=== PATIENT | female | born 1970 | race African-American/Black ===

== ENCOUNTER 2016-08-10 20:12 | Observation (INO) | payer MEDICARE, OTHER ==
--- NOTE | 2016-08-10 21:38 | ED ---
Abdominal Pain HPI - General Chief Complaint: Abdominal Pain Stated Complaint: Abd Pain Time Seen by Provider: 08/10/16 21:28 Source: patient Mode of arrival: wheelchair Limitations: no limitations - History of Present Illness Initial Comments: This patient is a 46-year-old woman who presents to be evaluated which she is describing as a "charley horse" type of pain. Patient states that she had seen her physician, Dr. Vásquez yesterday for routine appointment. She states that when she got into the taxi go home she started having a feeling like a charley horse that was in her right leg. She states that it began affecting both legs and then it started to be in her torso as well indicating the abdomen and back and also following up to her neck. The symptoms have been coming and going intermittently since then. When asked if she can localize the worst part she does indicate the right upper quadrant of her abdomen. The patient states that the pain varies from nonexistent to moderate. The pain is currently not there. She does state that it seems to limit her ability to eat anything because it makes the pain worse. She has not had nausea or vomiting. No change in urination or bowel movements. MD Complaint: abdominal pain Onset/Timin -: days(s) - Related Data Home Medications Medication Instructions Recorded Confirmed Cyclobenzaprine [Flexeril] 10 mg PO TID 08/28/14 08/10/16 Ferrous Sulfate [Iron (65 MG 325 mg PO DAILY 08/28/14 08/10/16 Elemental)] Gabapentin [Neurontin] 300 mg PO BID 08/28/14 08/10/16 Potassium Chloride [Klor-Con 20] 20 meq PO BID 04/22/16 08/10/16 Levothyroxine Sodium [Synthroid] 25 mcg PO DAILY 05/09/16 08/10/16 Spironolactone 50 mg PO BID 08/10/16 08/10/16 Previous Rx's Medication Instructions Recorded Furosemide [Lasix] 40 mg PO BID #60 tablet 04/29/16 ALPRAZolam [Xanax] 0.5 mg PO BID PRN #14 tablet 05/09/16 Dicyclomine [Bentyl] 10 mg PO QID #30 cap 08/14/16 Ibuprofen [Motrin] 600 mg PO QID PRN #30 tab 08/14/16 metFORMIN HCL [Glucophage] 500 mg PO BID-W/MEALS #30 tab 08/14/16 traMADol HCl [Ultram] 50 mg PO BID #10 tab 08/14/16 Allergies Allergy/AdvReac Type Severity Reaction Status Date / Time oxycodone HCl [From Percocet] Allergy Rash/Hives Verified 08/10/16 21:52 procaine HCl [From Novocain] Allergy facial Verified 08/10/16 21:52 swelling Review of Systems ROS Statement: Those systems with pertinent positive or pertinent negative responses have been documented in the HPI. ROS Other: All systems not noted in ROS Statement are negative. Constitutional: Denies: fever, chills Respiratory: Denies: cough, dyspnea Cardiovascular: Denies: chest pain, palpitations, edema, syncope Gastrointestinal: Reports: as per HPI, abdominal pain. Denies: nausea, vomiting , diarrhea, constipation, melena, hematochezia Genitourinary: Denies: dysuria, hematuria Musculoskeletal: Reports: myalgia. Denies: back pain Skin: Denies: rash Neurological: Denies: headache, weakness, numbness Past Medical History Past Medical History: Neurologic Disorder, Osteoarthritis (OA) Additional Past Medical History / Comment(s): chronic right leg wounds Last Myocardial Infarction Date:: 1989 History of Any Multi-Drug Resistant Organisms: None Reported Past Surgical History: Section, Tubal Ligation Additional Past Surgical History / Comment(s): colonoscopy Past Anesthesia/Blood Transfusion Reactions: No Reported Reaction Additional Past Anesthesia/Blood Transfusion Reaction / Comment(s): Pt has received blood in the past without reaction, once r/t childbirth and once due to anemia. Past Psychological History: Anxiety Additional Psychological History / Comment(s): Pt states she lives alone. She uses no assistive device. She can drive but does not own a car so she uses a [employer] or her insurance company for rides. She states her depression is stable at this time and has no suicidal thoughts or plans. She has had several suicide attempts in the past. Smoking Status: Never smoker Past Alcohol Use History: Rare Past Drug Use History: None Reported - Past Family History Father History Unknown: Yes Additional Family Medical History / Comment(s): Pt was adopted and does not know parents/family medical hx. General Exam Limitations: no limitations General appearance: alert, in no apparent distress, obese Head exam: Present: atraumatic, normocephalic Eye exam: Present: normal appearance. Absent: scleral icterus, conjunctival injection ENT exam: Present: normal oropharynx Neck exam: Present: normal inspection. Absent: full ROM, lymphadenopathy Respiratory exam: Present: normal lung sounds bilaterally. Absent: respiratory distress, wheezes, rales, rhonchi, stridor Cardiovascular Exam: Present: regular rate, normal rhythm, normal heart sounds. Absent: systolic murmur, diastolic murmur, rubs, gallop GI/Abdominal exam: Present: soft, tenderness (Mild right upper quadrant tenderness), normal bowel sounds, other (Exam limited by morbid obesity). Absent: guarding, rebound, rigid, mass Extremities exam: Present: normal inspection, normal capillary refill. Absent: pedal edema, calf tenderness Back exam: Absent: CVA tenderness (R), CVA tenderness (L) Neurological exam: Present: alert Skin exam: Present: warm, dry, intact, normal color. Absent: rash Course Vital Signs 08/10/16 08/10/16 08/11/16 20:27 22:43 00:27 Temperature 99.2 F 97.9 F 98.0 F Pulse Rate 129 H 118 H 115 H Respiratory 20 18 18 Rate Blood Pressure 151/94 137/76 129/68 O2 Sat by Pulse 98 99 99 Oximetry 08/11/16 02:10 Temperature 97.9 F Pulse Rate 117 H Respiratory 18 Rate Blood Pressure 123/66 O2 Sat by Pulse 99 Oximetry Medical Decision Making - Medical Decision Making Patient's 46-year-old woman who is having continued abdominal pain. The workup thus far does not reveal etiology the patient's pain. She is not having adequate relief despite trial of different medications. Case discussed with Dr. Fong, who is covering for Dr. Vásquez and will admit the patient overnight with a surgical consult to Dr. Lundberg who is on-call. - Lab Data Result diagrams: 08/14/16 07:00 08/14/16 07:00 Lab Results 08/10/16 08/10/16 08/10/16 Range/Units 21:45 21:45 22:00 WBC (3.8-10.6) k/uL RBC (3.80-5.40) m/uL Hgb (11.4-16.0) gm/dL Hct (34.0-46.0) % MCV (80.0-100.0) fL MCH (25.0-35.0) pg MCHC (31.0-37.0) g/dL RDW (11.5-15.5) % Plt Count (150-450) k/uL Neutrophils % % Lymphocytes % % Monocytes % % Eosinophils % % Basophils % % Neutrophils # (1.3-7.7) k/uL Lymphocytes # (1.0-4.8) k/uL Monocytes # (0-1.0) k/uL Eosinophils # (0-0.7) k/uL Basophils # (0-0.2) k/uL Anisocytosis Sodium 137 (137-145) mmol/L Potassium 4.4 (3.5-5.1) mmol/L Chloride 104 (98-107) mmol/L Carbon Dioxide 21 L (22-30) mmol/L Anion Gap 12 mmol/L BUN 18 H (7-17) mg/dL Creatinine 1.07 H (0.52-1.04) mg/dL Est GFR (MDRD) Af Amer >60 (>60 ml/min/1.73 sqM) Est GFR (MDRD) Non-Af 56 (>60 ml/min/1.73 sqM) Glucose 117 H (74-99) mg/dL Plasma Lactic Acid Chester (0.7-2.0) mmol/L Calcium 9.2 (8.4-10.2) mg/dL Magnesium 2.0 (1.6-2.3) mg/dL Total Bilirubin 0.7 (0.2-1.3) mg/dL AST 61 H (14-36) U/L ALT 15 (9-52) U/L Alkaline Phosphatase 85 (38-126) U/L Total Protein 8.6 H (6.3-8.2) g/dL Albumin 4.2 (3.5-5.0) g/dL Amylase 107 (30-110) U/L Lipase 71 (23-300) U/L Urine Color Yellow Urine Appearance Clear (Clear) Urine pH 5.0 (5.0-8.0) Ur Specific Anza 1.013 (1.001-1.035) Urine Protein Negative (Negative) Urine Glucose (UA) Negative (Negative) Urine Ketones Negative (Negative) Urine Blood Negative (Negative) Urine Nitrate Negative (Negative) Urine Bilirubin Negative (Negative) Urine Urobilinogen <2.0 (<2.0) mg/dL Ur Leukocyte Esterase Negative (Negative) Urine HCG, Qual Not Detected (Not Detectd) 08/10/16 08/10/16 Range/Units 22:00 22:00 WBC 12.8 H (3.8-10.6) k/uL RBC 4.00 (3.80-5.40) m/uL Hgb 10.9 L (11.4-16.0) gm/dL Hct 33.3 L (34.0-46.0) % MCV 83.2 (80.0-100.0) fL MCH 27.4 (25.0-35.0) pg MCHC 32.9 (31.0-37.0) g/dL RDW 16.4 H (11.5-15.5) % Plt Count 398 (150-450) k/uL Neutrophils % 63 % Lymphocytes % 26 % Monocytes % 5 % Eosinophils % 4 % Basophils % 1 % Neutrophils # 8.0 H (1.3-7.7) k/uL Lymphocytes # 3.4 (1.0-4.8) k/uL Monocytes # 0.6 (0-1.0) k/uL Eosinophils # 0.5 (0-0.7) k/uL Basophils # 0.1 (0-0.2) k/uL Anisocytosis Slight Sodium (137-145) mmol/L Potassium (3.5-5.1) mmol/L Chloride (98-107) mmol/L Carbon Dioxide (22-30) mmol/L Anion Gap mmol/L BUN (7-17) mg/dL Creatinine (0.52-1.04) mg/dL Est GFR (MDRD) Af Amer (>60 ml/min/1.73 sqM) Est GFR (MDRD) Non-Af (>60 ml/min/1.73 sqM) Glucose (74-99) mg/dL Plasma Lactic Acid Chester 1.1 (0.7-2.0) mmol/L Calcium (8.4-10.2) mg/dL Magnesium (1.6-2.3) mg/dL Total Bilirubin (0.2-1.3) mg/dL AST (14-36) U/L ALT (9-52) U/L Alkaline Phosphatase (38-126) U/L Total Protein (6.3-8.2) g/dL Albumin (3.5-5.0) g/dL Amylase (30-110) U/L Lipase (23-300) U/L Urine Color Urine Appearance (Clear) Urine pH (5.0-8.0) Ur Specific Anza (1.001-1.035) Urine Protein (Negative) Urine Glucose (UA) (Negative) Urine Ketones (Negative) Urine Blood (Negative) Urine Nitrate (Negative) Urine Bilirubin (Negative) Urine Urobilinogen (<2.0) mg/dL Ur Leukocyte Esterase (Negative) Urine HCG, Qual (Not Detectd) Disposition Clinical Impression: Abdominal pain Disposition: ADMITTED IP TO THIS HOSP Condition: Fair
[2016-08-10] MEDS ORDERED: KETOROLAC 30 MG/ML 1 ML VIAL IVP STA (21:51)
[2016-08-10 21:57] LABS: Appearance,Urine Clear (Clear); Bilirubin,Urine Negative (Negative); Glucose,Urine (UA) Negative (Negative); Ketones,Urine Negative (Negative); Leukocyte Esterase,Urine Negative (Negative); Nitrite,Urine Negative (Negative); Protein,Urine Negative (Negative); Specific Gravity,Urine 1.013 (1.001-1.035); UA Billing (MACRO vs. MICRO) CHEM; Urobilinogen,Urine <2.0 mg/dL (<2.0)
[2016-08-10 22:23] LABS: Anisocytosis Slight; Basophils # (A) 0.1 k/uL (0-0.2); Basophils % (A) 1 %; CH 26.9; CHCM 32.5; Eosinophils # (A) 0.5 k/uL (0-0.7); Eosinophils % (A) 4 %; HCT 33.3 % (34.0-46.0); HDW 2.64; HGB 10.9 gm/dL (11.4-16.0); Luc # (Auto) 0.21; Luc % (Auto) 2; Lymphocytes # (A) 3.4 k/uL (1.0-4.8); Lymphocytes % (A) 26 %; MCH 27.4 pg (25.0-35.0); MCHC 32.9 g/dL (31.0-37.0); MCV 83.2 fL (80.0-100.0); Mean Platelet Volume 7.2; Monocytes # (A) 0.6 k/uL (0-1.0); Monocytes % (A) 5 %; Neutrophils % (A) 63 %; RDW 16.4 % (11.5-15.5); WBC 12.8 k/uL (3.8-10.6); WBC (Perox) 12.98
--- NOTE | 2016-08-10 22:40 | CT ---
EXAMINATION TYPE: CT abdomen pelvis wo con DATE OF EXAM: 08/10/2016 10:33 PM COMPARISON: 10/11/2013 HISTORY: PT states of abdominal pain. CT DLP: 4647.8 mGycm Automated exposure control for dose reduction was used. TECHNIQUE: Helical acquisition of images was performed from the lung bases through the pelvis. FINDINGS: Lung bases are clear. There is no pleural effusion. Exam is limited by patient size. The liver spleen pancreas gallbladder appear normal. Bile ducts are not dilated. There is no adrenal mass. Kidneys have normal size and contour. There is no hydronephrosis. Ureters are not dilated. Ther e is no retroperitoneal adenopathy. There is an umbilical hernia that contains omental fat. I see no intestinal wall thickening. There are no dilated loops. There are diffuse colonic diverticul a. There is no sign of diverticulitis. Appendix appears normal. The bladder distends smoothly. There is no sign of a pelvic mass. I see no bony destructive process. IMPRESSION: THERE IS SOME MILD COLONIC DIVERTICULOSIS WITHOUT EVIDENCE OF DIVERTICULITIS. NO SIGN OF ACUTE ABDOME N AND PELVIS. NO ADVERSE CHANGE COMPARED TO LAST EXAM. SMALL UMBILICAL HERNIA.
[2016-08-10 22:53] LABS: ALT 15 U/L (9-52); AST 61 U/L (14-36); Alkaline Phosphatase 85 U/L (38-126); Amylase 107 U/L (30-110); Anion Gap 12 mmol/L; Blood Urea Nitrogen 18 mg/dL (7-17); Calcium 9.2 mg/dL (8.4-10.2); Carbon Dioxide 21 mmol/L (22-30); Chloride 104 mmol/L (98-107); Glucose 117 mg/dL (74-99); Non-African American GFR(MDRD) 56 (>60 ml/min/1.73 sqM); Sodium 137 mmol/L (137-145); Total Bilirubin 0.7 mg/dL (0.2-1.3); Total Protein 8.6 g/dL (6.3-8.2)
[2016-08-10 22:56] LABS: Potassium 4.4 mmol/L (3.5-5.1)
[2016-08-10] MEDS ORDERED: ONDANSETRON 4 MG/2 ML VIAL IVP STA (23:01)
[2016-08-10] MEDS ORDERED: HYDROcodone/APAP 7.5-325MG 1 EACH TAB PO ONE (23:23)
[2016-08-10] MEDS ORDERED: MAG HYDROX/AL HYDROX/SIMETH 30 ML, HYOSCYAMINE ELIXIR 10 ML, CIMETIDINE HCL 300 MG, LID... PO STA ×4 (23:52)
[2016-08-11] MEDS ORDERED: DIAZEPAM 5 MG/ML 2 ML SYRINGE IVP STA (01:26)
[2016-08-11] MEDS ORDERED: NALOXONE 0.4 MG/ML 1 ML VIAL IV PRN (01:55)
[2016-08-11] MEDS ORDERED: ACETAMINOPHEN TAB 325 MG TAB PO PRN (01:55)
[2016-08-11] MEDS ORDERED: ONDANSETRON 4 MG/2 ML VIAL IVP PRN (01:55)
[2016-08-11] MEDS ORDERED: ALPRAZolam 0.5 MG TAB PO PRN (01:58)
[2016-08-11 02:43] VITALS: BMI 73.2
[2016-08-11] MEDS: MORPHINE SULFATE 4 MG/ML SYRINGE IV PRN ×5 (03:06→23:36)
[2016-08-11] MEDS: SODIUM CHLORIDE 0.9% 1,000 ML IV SCH (03:33)
[2016-08-11] MEDS: LEVOTHYROXINE 25 MCG TAB PO SCH (05:12)
[2016-08-11] MEDS: FUROSEMIDE 40 MG TAB PO SCH ×2 (07:50→20:06)
[2016-08-11] MEDS: CYCLOBENZAPRINE 10 MG TAB PO SCH ×3 (07:50→20:06)
[2016-08-11] MEDS: GABAPENTIN 300 MG CAP PO SCH ×2 (07:51→20:06)
[2016-08-11] MEDS: SPIRONOLACTONE 25 MG TAB PO SCH ×2 (07:51→20:05)
[2016-08-11] MEDS: FERROUS SULFATE 325 MG TAB PO SCH (07:52)
[2016-08-11] MEDS: FAMOTIDINE 20 MG TAB PO SCH ×2 (07:52→20:05)
[2016-08-11] MEDS ORDERED: ETODOLAC 300 MG CAPSULE PO SCH (09:00)
[2016-08-11] MEDS ORDERED: POTASSIUM CHLORIDE ER 20 MEQ TAB.ER PO SCH (09:00)
--- NOTE | 2016-08-11 09:32 | XR ---
EXAMINATION TYPE: XR lumbosacral spine min 4V DATE OF EXAM: 08/11/2016 9:19 AM CLINICAL HISTORY: Rule out compression fracture. Several recent falls with pain. TECHNIQUE: Frontal, lateral, and oblique images of the lumbar spine are obtained. COMPARISON: CT abdomen and pelvis from yesterday. FINDINGS: Exam is slightly suboptimal secondary to patient's large body habitus. There are 5 lumbar type vertebral bodies identified. There is hypoplastic right T12 rib redemonstrated. The lumbar spin e shows satisfactory alignment without evidence of acute fracture or dislocation. Vertebral body heig hts and disk space heights are within normal limits. Fairly moderate multilevel anterior and lateral spurring is redemonstrated. Multilevel facet arthropathy is seen most prominent in lower lumbar leve ls. The oblique images appear within normal limits. The overlying soft tissue appears unremarkable. IMPRESSION: No acute fracture or dislocation is seen in the lumbar spine. Moderate multilevel spurri ng and facet arthropathy is redemonstrated unchanged from one day earlier.
--- NOTE | 2016-08-11 09:32 | XR ---
EXAMINATION TYPE: XR thoracic spine complete DATE OF EXAM ORDERED: 08/11/2016 9:19 AM HISTORY: r/o compression fracture. COMPARISON: None. FINDINGS: The study is limited by the patient's tremendous size. The upper thoracic spine is not wel l seen on the lateral projection. The pedicles are largely obscured on the frontal projection. Visualized portions of the spine show normal alignment. No fractures are seen. There is mild hypertro phic spondylosis. Paraspinal soft tissues are somewhat prominent on the left. This may be due to unfo lding of the thoracic aorta. The heart is enlarged. IMPRESSION: VERY LIMITED STUDY DEMONSTRATING NO DEFINITE ACUTE ABNORMALITIES.
[2016-08-11 10:14] LABS: Iron 84 ug/dL (37-170)
[2016-08-11 10:23] LABS: % Iron Saturation 26.4 % (20-50); Total Iron Binding Capacity 318 ug/dL (265-497)
--- NOTE | 2016-08-11 11:00 | US ---
EXAMINATION TYPE: US venous doppler duplex LE LT DATE OF EXAM: 08/11/2016 10:51 AM COMPARISON: Previous study dated 04/22/2016. CLINICAL HISTORY: r/o dvt. SIDE PERFORMED: Left VESSELS IMAGED: External Iliac Vein (EIV)-not seen, see below Common Femoral Vein Deep Femoral Vein Greater Saphenous Vein * Femoral Vein-unable to view for compression, see below Popliteal Vein Small Saphenous Vein * Proximal Calf Veins (* superficial vessels) TECHNOLOGIST IMPRESSION: Patients morbid obesity (5'5' 440lbs) limited scan somewhat. Left Leg: Appears nnegative for DVT, in this somewhat limited scan No popliteal fossa lesion was identified. IMPRESSION: LIMITED EXAMINATION DEMONSTRATING NO ACUTE DVT AT THIS TIME.
[2016-08-11 11:10] LABS: Hemoglobin A1C 6.4 % (4.2-6.1)
--- NOTE | 2016-08-11 11:15 | HP ---
DATE OF ADMISSION: DATE OF SERVICE: 08/11/2016 A 46-year-old female, single. She has FULL CODE status. She is 5 feet 5 inches. Weight is 199.58 kg and her BMI is 73.2 kg and BSA 2.77 sq m. She is allergic to OXYCODONE and others. She was admitted through emergency room with the abdominal pain. CHIEF COMPLAINT: She had complaining about abdominal pain, started on last Monday after she came out of visiting her PCP, Dr. Pablito Vásquez, and she is going to go inside the car, she felt subsequently pain in the abdomen and goes to her legs and goes to her shoulder and goes to her back and is traveling with no association. HISTORY OF PRESENT ILLNESS: A 46-year-old female morbidly obese with BMI 73.2. She had experienced sudden pain after she tried to get inside the car and that pain extended to the abdomen was on the right side and then went to the left side and subsequently went to the legs and currently it's more of her left leg and left leg actually tender across the veins, the femoral vein and the thigh with the underlying high morbid obesity. She had no other symptoms, no nausea, no vomiting, no diarrhea and, but she has pain with the gait as well and unsteady gait as well. HER PAST MEDICAL HISTORY: She had history of right lower leg extremity cellulitis, bilateral lower extremity edema, nonhealing ulcer of the lower leg. She had also history of using muscle relaxant, history of anemia, the etiology is unknown. She had regular period, but she finished her period. She is also hypothyroidism. FAMILY HISTORY: She is 6 with 4 daughters. She is single and she never . She is currently on observation status as she admitted through the emergency room with the consultation for the surgeon compression molding machine tender Dr. Lundberg. On reviewing of the system: Neuropsychiatry was negative. Cardiovascular, no chest pain and no pressure pain, but she had generalized pain, mostly in the left side with the left lower leg. She is vague in her complaint. She had past history of musculoskeletal pain. She is also on etodolac 3 times a day and that also can be associated with significant stomach problem. She stated that she had colonoscopy in the past, 3 years ago, but she never had upper endoscopy. She has denied any hematemesis or melena or hematochezia. No history of pulmonary cough or expectoration or wheezing. She never smoked. On the abdomen, she had a morbidly obese. CAT scan was done in the ER was negative and she did not really have nausea or vomiting, but she had pain scattered in the 4 quadrants, mostly localized on the left side. The extremity a morbidly obese extremities with tenderness on the course of the femoral vein. No pitting edema so apparently she had maybe lymphedema more than pitting edema. The perfusion bilaterally is present. Neurologically, she has no problem with conscious, alert, oriented. She had the deep tendon reflexes diminished because of the morbid obesity and the walking, she has gait disturbance with the pain in the lower sacral area. The 14-point otherwise as I mentioned above was reviewed with no other symptoms. PHYSICAL EXAMINATION: VITAL SIGNS ON ADMISSION: Patient's temperature was 98 and pulse rate was 115 with tachycardia and she has also subsequent check was still tachycardiac and her respiratory rate was 18 to 16, blood pressure was 129/68 to 123/66 and has been stable. Her oxygen occasionally dropped to 93 and probably with the morbid obesity and could be secondary to obstructive sleep apnea as well with the marked obesity. HEENT: The head was normocephalic and atraumatic. Pupils were equal and reactive. Conjunctivae pink. Sclerae nonicteric. Her ears, normal hearing. Oropharynx, she had only a few teeth on the lower jaw and she had no teeth on the upper jaw. She has stated that she is planning for having dentures. The neck was supple. No JVD. No thyromegaly. No lymphadenopathy. Trachea midline. The chest was clear, markedly obese. No wheezes, no rhonchi. HEART: PMI in the fifth intercostal space. Normal S1, S2. No gallop and no appreciated audible murmur. The abdomen is morbidly obese and she had; however, tenderness on the left side of the upper quadrant in spite that that the review of the CAT scan was essentially negative and negative for lipase and amylase, also laboratory pritchard. The extremities, large thighs and large legs and there is tenderness on the left thigh. There is nonpitting edema and probably is felt could be from lymph pritchard. Neurologically was stable and no lateralizing signs. She moving 4 extremities. Conscious, alert, oriented x3. On examination, the spine there is no significant tenderness until you reached in the lower lumbar and the sacral area severe tenderness. Also, we reviewed her laboratories and the laboratory was indicating her white count is 12.5, which is leukocytosis and her hemoglobin 10.9 anemia with hematocrit 33.3, however, the MCV is 83.2. She has elevated neutrophil. The chemistry profile indicating the carbon dioxide is 21, which possibility indication that may be she is hyperventilating, could be associated with obstructive sleep apnea as well. Her kidney function, the BUN is 18, creatinine 1.07 and her estimated glomerular filtration rate is normal for and that is than 60. Her AST; however, is elevated 61 and was wonder if she had any evidence of hepatitis C and we will be obtaining acute hepatitis panel A, B and C. She had also elevated total protein 8.6. Patient could be associated with multiple myeloma and we will be obtaining serum protein electrophoresis as well as immunofixation of the urine and protein as well as x-ray of the thoracic and the lumbar as well as sacral area as well. Her amylase and lipase negative. Her urine analysis is negative. We will be waiting Dr. Lundberg also of the surgeon to evaluate as well. ASSESSMENT: 1. With the assessment in general, vague nonspecific pain; however, localization with the pain during the exam she had left leg pain across the vein and we will do a venous duplex study to rule out deep venous thrombosis. 2. Hyperproteinemia, we will be ruling out multiple myeloma. She had normal lactic acid and she had mild carbon dioxide diminished with the with the underlying possibility of obstructive sleep apnea. 3. She had morbid obesity with the BMI 73.2 as well. 4. She had hypothyroidism as well and she is currently on treatment and we will recheck as well in the future. She has been on Lasix 40 mg twice a day and of course she has no evidence of edema at this time and she has been gabapentin appeared to be that she had similar problem in the past. However, she stated this is acute after Monday as coming out from the visit to her PCP. We will await for the new laboratory tomorrow as well as the laboratory ordered and will do CMP tomorrow and CBC with differential. With the with the underlying, systemic inflammatory response syndrome is considered with the white count elevated and considerable pain nonspecific. [facility]
[2016-08-11 11:46] LABS: Hepatitis B Core IgM Index 0.02
[2016-08-11 11:58] LABS: Hepatitis C Virus IgG Index 0.06
[2016-08-11 12:01] LABS: Hepatitis C Virus IgG Ab Negative (Negative)
[2016-08-11] MEDS: HEPARIN SODIUM,PORCINE 5,000 UNIT/ML 1 ML VIAL SQ SCH ×2 (16:44→23:23)
--- NOTE | 2016-08-11 18:12 | P.GSCN ---
History of Present Illness Consult date: 08/11/16 Reason for Consult: Abdominal pain History of present illness: The patient is a 46 yo female who presented with abdominal pain. She had a doctor's appointment yesterday and when she was leaving and getting into a cab she will had some crampy abdominal pain on the right side. She got out of the cab and then went into the house. The pain was persisting. She laid down and had a nap and was awakened with severe pain on the right side. The pain then progressed with cramps which would be like charley horses in her feet, calves and thighs, abdomen, all the way up to her neck. Those pains are improved but she persists in having the pain in the right upper quadrant. It almost feels like there is a hard lump there. She is trying to massage it to get the pain to go away. She's never had anything like this in the past. She has no associated nausea or vomiting. She is hungry. Denies fevers or chills, denies dysuria. No recent cough or upper respiratory infection. No one at home is been ill. No diarrhea or constipation. Review of Systems All systems: negative Past Medical History Past Medical History: Neurologic Disorder, Osteoarthritis (OA) Additional Past Medical History / Comment(s): chronic right leg wounds Last Myocardial Infarction Date:: 1989 History of Any Multi-Drug Resistant Organisms: None Reported Past Surgical History: Section, Tubal Ligation Additional Past Surgical History / Comment(s): colonoscopy Past Anesthesia/Blood Transfusion Reactions: No Reported Reaction Additional Past Anesthesia/Blood Transfusion Reaction / Comm: Pt has received blood in the past without reaction, once r/t childbirth and once due to anemia. Past Psychological History: Anxiety Additional Psychological History / Comment(s): Pt states she lives alone. She uses no assistive device. She can drive but does not own a car so she uses a cab or her insurance company for rides. She states her depression is stable at this time and has no suicidal thoughts or plans. She has had several suicide attempts in the past. Smoking Status: Never smoker Past Alcohol Use History: Rare Past Drug Use History: None Reported - Past Family History Father History Unknown: Yes Additional Family Medical History / Comment(s): Pt was adopted and does not know parents/family medical hx. Medications and Allergies Home Medications Medication Instructions Recorded Confirmed Type Cyclobenzaprine [Flexeril] 10 mg PO TID 08/28/14 08/10/16 History Diclofenac Sodium [Voltaren] 75 mg PO BID 08/28/14 08/10/16 History Ferrous Sulfate [Iron (65 MG 325 mg PO DAILY 08/28/14 08/10/16 History Elemental)] Gabapentin [Neurontin] 300 mg PO BID 08/28/14 08/10/16 History Potassium Chloride [Klor-Con 20] 20 meq PO BID 04/22/16 08/10/16 History Levothyroxine Sodium [Synthroid] 25 mcg PO DAILY 05/09/16 08/10/16 History HYDROcodone/APAP 10-325MG [[place] 1 tab PO Q8H PRN 08/10/16 08/10/16 History 10-325] Spironolactone 50 mg PO BID 08/10/16 08/10/16 History Allergies Allergy/AdvReac Type Severity Reaction Status Date / Time oxycodone HCl [From Percocet] Allergy Rash/Hives Verified 08/10/16 21:52 procaine HCl [From Novocain] Allergy facial Verified 08/10/16 21:52 swelling Surgical - Exam Osteopathic Statement: *. No significant issues noted on an osteopathic structural exam other than those noted in the History and Physical/Consult. Vital Signs Temp Pulse Resp BP Pulse Ox 99.2 F 129 H 20 151/94 98 08/10/16 20:27 08/10/16 20:27 08/10/16 20:27 08/10/16 20:27 08/10/16 20:27 - General well developed, well nourished, no distress - Eyes normal ocular movement - ENT no hearing loss, no congestion - Neck trachea midline, no venous distension - Respiratory normal respiratory effort, clear to auscultation - Cardiovascular Rhythm: regular - Abdomen She has point tenderness along the right inferior costal margin. This reproduces her pain. There is none noted on the left side. Abdomen: soft, non tender, bowel sounds, no rigid, no rebound, no distended - Neurologic normal coordination - Psychiatric oriented to time, oriented to person, oriented to place, speech is normal, memory intact Results - Labs 08/10/16 22:00 08/10/16 22:00 Abnormal Lab Results - Last 24 Hours (Table) 08/11/16 Range/Units 09:39 Hemoglobin A1c 6.4 H (4.2-6.1) % Diabetes panel 08/11/16 Range/Units 09:39 Hemoglobin A1c 6.4 H (4.2-6.1) % - Imaging CT scan - abdomen: report reviewed, image reviewed Assessment and Plan (1) Musculoskeletal pain Status: Acute (2) Costochondritis, acute Status: Acute (3) Abdominal pain Status: Acute Plan: This pain does not appear to be anything intra-abdominal. She is very tender along the ribs and has some spasm of the muscle at that site. Will order some warm packs and oral Valium for muscle spasm. Consider physical therapy. This does not explain her other cramps in her lower extremities. Currently nonsurgical.
[2016-08-12] MEDS: SODIUM CHLORIDE 0.9% 1,000 ML IV SCH ×2 (01:48→21:17)
[2016-08-12] MEDS: LEVOTHYROXINE 25 MCG TAB PO SCH (05:54)
[2016-08-12] MEDS: MORPHINE SULFATE 4 MG/ML SYRINGE IV PRN ×2 (05:55→10:39)
[2016-08-12] MEDS: HEPARIN SODIUM,PORCINE 5,000 UNIT/ML 1 ML VIAL SQ SCH ×3 (07:57→23:04)
[2016-08-12] MEDS: FUROSEMIDE 40 MG TAB PO SCH ×2 (07:57→21:16)
[2016-08-12] MEDS: FAMOTIDINE 20 MG TAB PO SCH ×2 (07:57→21:16)
[2016-08-12] MEDS: GABAPENTIN 300 MG CAP PO SCH ×2 (07:57→21:15)
[2016-08-12] MEDS: CYCLOBENZAPRINE 10 MG TAB PO SCH ×3 (07:58→21:16)
[2016-08-12] MEDS: SPIRONOLACTONE 25 MG TAB PO SCH ×2 (07:58→21:16)
[2016-08-12] MEDS: FERROUS SULFATE 325 MG TAB PO SCH (07:58)
[2016-08-12 08:02] LABS: Anisocytosis Slight; Basophils % (A) 0 %; CH 26.4; CHCM 31.2; Eosinophils # (A) 0.2 k/uL (0-0.7); Eosinophils % (A) 3 %; HCT 29.5 % (34.0-46.0); HDW 2.38; Hypochromasia Slight; Luc # (Auto) 0.17; Luc % (Auto) 2; Lymphocytes # (A) 2.5 k/uL (1.0-4.8); Lymphocytes % (A) 29 %; MCH 26.5 pg (25.0-35.0); MCHC 31.2 g/dL (31.0-37.0); Mean Platelet Volume 6.9; Monocytes # (A) 0.5 k/uL (0-1.0); Monocytes % (A) 5 %; Neutrophils # (A) 5.3 k/uL (1.3-7.7); Neutrophils % (A) 61 %; RBC 3.47 m/uL (3.80-5.40); RDW 16.2 % (11.5-15.5); WBC 8.7 k/uL (3.8-10.6); WBC (Perox) 8.53
[2016-08-12 08:03] LABS: HGB 9.2 gm/dL (11.4-16.0)
[2016-08-12 08:09] LABS: ALT 20 U/L (9-52); AST 27 U/L (14-36); Alkaline Phosphatase 60 U/L (38-126); Anion Gap 7 mmol/L; Blood Urea Nitrogen 18 mg/dL (7-17); Calcium 8.8 mg/dL (8.4-10.2); Carbon Dioxide 28 mmol/L (22-30); Chloride 103 mmol/L (98-107); Glucose 124 mg/dL (74-99); Non-African American GFR(MDRD) 58 (>60 ml/min/1.73 sqM); Potassium 5.2 mmol/L (3.5-5.1); Sodium 138 mmol/L (137-145); Total Bilirubin 0.6 mg/dL (0.2-1.3)
[2016-08-12 09:37] LABS: Erythrocyte Sedimentation Rate 46 mm/hr (0-20)
[2016-08-12] MEDS: DIAZEPAM 5 MG TAB PO PRN (14:05)
[2016-08-12] MEDS ORDERED: traMADol 50 MG TAB PO PRN (17:50)
--- NOTE | 2016-08-12 18:33 | P.PN ---
Subjective This is a dictation on the progress note, patient seen [id number] evaluated, PCP is Dr. Pablito Vásquez. Patient complained that she had blood in the stools and also blood through her vagina, and that causing her anemia. Review the laboratories today found that she had normal iron panel with normal MCV could be indicating bleeding per vagina or rectum with the hemoglobin drop from 10.9-9.2 could be also from hydration. She had white count was 12.8 now is 8.7 and her normal platelet count and potassium is elevated 5.2 could be due to 2 to the throwing itself with the morbid obesity her glucose was fluctuating with hyperglycemia mild but the hemoglobin A1c 6.4 with the possibility of with the diabetes mellitus with the risk factor of morbid obesity. And we will be checking her CBG before meals and at bedtime and cover with the scale. Patient on the DVT prophylaxis because of the morbid obesity as well as she is on bed. We'll order also ambulation as tolerated. Today her vital sign indicating temperature is 97.6 orally her oxygen saturation 95 and her blood pressure was ranging from 108/57-146/91 her heart rate is fluctuating with 92- 111 with the underlying possibility of obstructive sleep apnea. Patient has several testing including computed tomography scan abdomen and pelvis was negative she had the lumbar spine thoracic spine and that was degenerative arthritis with the possibility the pain is associated with musculoskeletal. We checked on her left leg tenderness and we did the adrenals Doppler study and was negative as well. She had also initially elevated calcium with the IV fluid in the ER and calcium normalized as well probable mild dehydration associated. Her abdominal pain has been stable at this time and will discontinue the morphine with the understanding of musculoskeletal pain was indicated by Dr. Lundberg the surgeon. This of this exam patient conscious alert oriented 3 sitting on the bed HEENT negative he will treat swallow. Neck was supple no JVD or thyromegaly she has been treated from hypothyroidism and we'll recheck her thyroid function. Chest was clear and the heart was regular sinus and abdomen was soft orbitally obese and positive bowel sounds no evidence of localized tenderness. Extremities large no pitting edema. Neurologically moving 4 extremities and able to ambulate. Assessment: Underlying anemia of chronic disease, #2 patient stated that she had was in the stools as well as vaginal blood and with planning to consult WIRE DRAWING DIE MAKER as well as obtaining stool for Hemoccult, however the iron study was satisfactory that could be from chronic disease with elevated sed rate. His morbid obesity with a BMI 73.2 and underlying obstructive sleep apnea highly suspected. Plan Physical therapy #2 stool for Hemoccult #3 consultation with WIRE DRAWING DIE MAKER. For vaginal bleeding. Objective - Vital Signs Vital signs: Vital Signs Temp 97.6 F 08/12/16 15:36 Pulse 111 H 08/12/16 15:51 Resp 17 08/12/16 15:51 BP 108/57 08/12/16 15:36 Pulse Ox 95 08/12/16 15:36 Intake & Output 08/11/16 08/12/16 08/12/16 18:59 06:59 18:59 Intake Total 1510 118 Output Total 800 Balance 710 118 Intake: IV 160 Sodium Chloride 0.9% 1, 160 000 ml @ 20 mls/hr IV . Q24H [facility] Rx#:[id number] Oral 1350 118 Output: Urine 800 Other: Voiding Method Toilet Toilet # Voids 1 3 - Labs CBC & Chem 7: 08/12/16 07:10 08/12/16 07:05 Labs: Abnormal Lab Results - Last 24 Hours (Table) 08/11/16 08/12/16 08/12/16 Range/Units 09:39 07:05 07:10 RBC 3.47 L (3.80-5.40) m/uL Hgb 9.2 L D (11.4-16.0) gm/dL Hct 29.5 L (34.0-46.0) % RDW 16.2 H (11.5-15.5) % ESR 46 H (0-20) mm/hr Potassium 5.2 H (3.5-5.1) mmol/L BUN 18 H (7-17) mg/dL Glucose 124 H (74-99) mg/dL Hepatitis A Ab Total Reactive H (Non-Reactive)
[2016-08-12 20:25] LABS: Glucose,Whole Blood 91 mg/dL (75-99)
[2016-08-12] MEDS: INSULIN LISPRO (humaLOG) 300 UNIT/3 ML VIAL SQ SCH (21:17)
[2016-08-12] MEDS: HYDROcodone/APAP 10-325MG 1 EACH TAB PO PRN (23:08)
[2016-08-13] MEDS: DIAZEPAM 5 MG TAB PO PRN ×2 (00:56→23:09)
[2016-08-13] MEDS: LEVOTHYROXINE 25 MCG TAB PO SCH (06:08)
[2016-08-13 07:15] LABS: Anisocytosis Slight; Basophils % (A) 0 %; CH 26.6; Eosinophils # (A) 0.2 k/uL (0-0.7); Eosinophils % (A) 2 %; HCT 29.7 % (34.0-46.0); HDW 2.41; HGB 9.2 gm/dL (11.4-16.0); Luc # (Auto) 0.23; Luc % (Auto) 3; Lymphocytes # (A) 2.7 k/uL (1.0-4.8); Lymphocytes % (A) 33 %; MCHC 31.1 g/dL (31.0-37.0); MCV 83.6 fL (80.0-100.0); Monocytes # (A) 0.4 k/uL (0-1.0); Monocytes % (A) 5 %; Neutrophils # (A) 4.6 k/uL (1.3-7.7); Neutrophils % (A) 56 %; RBC 3.55 m/uL (3.80-5.40); RDW 16.3 % (11.5-15.5); WBC 8.1 k/uL (3.8-10.6)
[2016-08-13 07:24] LABS: Anion Gap 8 mmol/L; Blood Urea Nitrogen 18 mg/dL (7-17); Calcium 9.3 mg/dL (8.4-10.2); Carbon Dioxide 28 mmol/L (22-30); Chloride 103 mmol/L (98-107); Glucose 98 mg/dL (74-99); Non-African American GFR(MDRD) >60 (>60 ml/min/1.73 sqM); Potassium 4.6 mmol/L (3.5-5.1); Sodium 139 mmol/L (137-145)
[2016-08-13 07:31] LABS: Glucose,Whole Blood 102 mg/dL (75-99)
--- NOTE | 2016-08-13 08:39 | P.OBCN ---
History of Present Illness Consult date: 08/13/16 Requesting physician: Rubén Fong Reason for consult: other (Vaginal discharge and spotting) History of present illness: This patient is a 46-year-old 4 para [address] Fong for evaluation of right upper quadrant and abdominal pain. Patient was admitted approximately 2 days ago after developing this pain and evaluation has included a negative CAT scan and evaluation by general surgery. Patient apparently also complains of having some vaginal discharge with some light spotting. Hence the reason for this consult. Patient's regular HOUSE RN is Dr. Hadley, and she most recently saw him on February 15 and had a complete examination including a normal Pap smear. Patient states that she has regular menstrual cycles and most recently had one about a week or so ago, but during this hospitalization has noticed some vaginal discharge and which she feels is dark red spotting. She denies any history of menstrual problems in the past. Past obstetrical history is also significant for a tubal ligation. Dr. Hadley did treat her for bacterial infection when he saw her in January. Diagnostic evaluation here has included a normal CAT scan of the pelvis. General surgery has seen the patient and does not feel she has a surgical abdomen. Review of Systems Genitourinary: Reports as per HPI, Reports vaginal discharge Menstruation: Reports as per HPI, Reports period normal Past Medical History Past Medical History: Neurologic Disorder, Osteoarthritis (OA) Additional Past Medical History / Comment(s): chronic right leg wounds Last Myocardial Infarction Date:: 1989 History of Any Multi-Drug Resistant Organisms: None Reported Past Surgical History: Section, Tubal Ligation Additional Past Surgical History / Comment(s): colonoscopy Past Anesthesia/Blood Transfusion Reactions: No Reported Reaction Additional Past Anesthesia/Blood Transfusion Reaction / Comm: Pt has received blood in the past without reaction, once r/t childbirth and once due to anemia. Past Psychological History: Anxiety Additional Psychological History / Comment(s): Pt states she lives alone. She uses no assistive device. She can drive but does not own a car so she uses a cab or her insurance company for rides. She states her depression is stable at this time and has no suicidal thoughts or plans. She has had several suicide attempts in the past. Smoking Status: Never smoker Past Alcohol Use History: Rare Past Drug Use History: None Reported - Past Family History Father History Unknown: Yes Additional Family Medical History / Comment(s): Pt was adopted and does not know parents/family medical hx. Medications and Allergies Home Medications Medication Instructions Recorded Confirmed Type Cyclobenzaprine [Flexeril] 10 mg PO TID 08/28/14 08/10/16 History Diclofenac Sodium [Voltaren] 75 mg PO BID 08/28/14 08/10/16 History Ferrous Sulfate [Iron (65 MG 325 mg PO DAILY 08/28/14 08/10/16 History Elemental)] Gabapentin [Neurontin] 300 mg PO BID 08/28/14 08/10/16 History Potassium Chloride [Klor-Con 20] 20 meq PO BID 04/22/16 08/10/16 History Levothyroxine Sodium [Synthroid] 25 mcg PO DAILY 05/09/16 08/10/16 History HYDROcodone/APAP 10-325MG [[place] 1 tab PO Q8H PRN 08/10/16 08/10/16 History 10-325] Spironolactone 50 mg PO BID 08/10/16 08/10/16 History Allergies Allergy/AdvReac Type Severity Reaction Status Date / Time oxycodone HCl [From Percocet] Allergy Rash/Hives Verified 08/10/16 21:52 procaine HCl [From Novocain] Allergy facial Verified 08/10/16 21:52 swelling Exam - Vital Signs Vital signs: Vital Signs Temp Pulse Pulse Resp BP Pulse Ox 08/13/16 01:21 96.9 F L 110 H 16 148/71 96 08/12/16 23:08 16 08/12/16 21:14 97.4 F L 105 H 17 108/59 97 08/12/16 20:00 105 H 17 08/12/16 15:51 101 H 111 H 17 08/12/16 15:36 97.6 F 101 H 17 108/57 95 Intake and Output 08/12/16 08/13/16 08/13/16 22:59 06:59 14:59 Intake Total 590 Balance 590 Intake: Oral 590 Other: Voiding Method Toilet # Voids 2 1 Results Result Diagrams: 08/13/16 06:52 08/13/16 06:52 Abnormal Lab Results - Last 24 Hours (Table) 08/12/16 08/13/16 08/13/16 Range/Units 07:10 06:52 06:52 RBC 3.47 L 3.55 L (3.80-5.40) m/uL Hgb 9.2 L D 9.2 L (11.4-16.0) gm/dL Hct 29.5 L 29.7 L (34.0-46.0) % RDW 16.2 H 16.3 H (11.5-15.5) % ESR 46 H (0-20) mm/hr BUN 18 H (7-17) mg/dL POC Glucose (mg/dL) (75-99) mg/dL 08/13/16 Range/Units 07:30 RBC (3.80-5.40) m/uL Hgb (11.4-16.0) gm/dL Hct (34.0-46.0) % RDW (11.5-15.5) % ESR (0-20) mm/hr BUN (7-17) mg/dL POC Glucose (mg/dL) 102 H (75-99) mg/dL Assessment and Plan (1) Vaginal discharge Narrative/Plan: This patient is a pleasant 46-year-old 4 para 4 female admitted for a non-gynecologic condition who now complains of a vaginal discharge and some dark red spotting. Due to the patient's morbid obesity a pelvic examination is not reasonable during her inpatient stay. 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 She is having regular menstrual cycles however may have had an episode of breakthrough bleeding while in the hospital. Most certainly her anemia is not secondary to any vaginal bleeding. My recommendations are to have her follow up with Dr. Hadley next week upon discharge as an outpatient. She was instructed to contact him upon discharge. If she were to continue to have persistent menstrual irregularities then he will proceed with further evaluation. As far as her vaginal discharge, this is a nonacute problem that is better evaluated in the outpatient setting by her primary HOUSE RN. Status: Acute
[2016-08-13] MEDS: INSULIN LISPRO (humaLOG) 300 UNIT/3 ML VIAL SQ SCH ×4 (08:58→20:36)
[2016-08-13] MEDS: HEPARIN SODIUM,PORCINE 5,000 UNIT/ML 1 ML VIAL SQ SCH ×3 (09:07→23:08)
[2016-08-13] MEDS: SPIRONOLACTONE 25 MG TAB PO SCH ×2 (09:08→19:48)
[2016-08-13] MEDS: GABAPENTIN 300 MG CAP PO SCH ×2 (09:08→19:49)
[2016-08-13] MEDS: FERROUS SULFATE 325 MG TAB PO SCH (09:08)
[2016-08-13] MEDS: CYCLOBENZAPRINE 10 MG TAB PO SCH ×3 (09:08→19:48)
[2016-08-13] MEDS: FAMOTIDINE 20 MG TAB PO SCH ×2 (09:08→19:49)
[2016-08-13] MEDS: FUROSEMIDE 40 MG TAB PO SCH ×2 (09:08→12:39)
--- NOTE | 2016-08-13 09:44 | P.PN ---
Subjective Principal diagnosis: Abdominal pain Patient states that her abdominal wall spasms have stopped. Denies abdominal pain at this time. She is tolerating diet. She is having some atypical vaginal bleeding. Objective - Vital Signs Vital signs: Vital Signs Temp 96.9 F L 08/13/16 01:21 Pulse 110 H 08/13/16 01:21 Resp 16 08/13/16 01:21 BP 148/71 08/13/16 01:21 Pulse Ox 96 08/13/16 01:21 Intake & Output 08/12/16 08/13/16 08/13/16 18:59 06:59 18:59 Intake Total 118 590 Balance 118 590 Intake: Oral 118 590 Other: Voiding Method Toilet Toilet # Voids 3 1 - Exam Abdomen: Soft, nontender, nondistended - Labs CBC & Chem 7: 08/13/16 06:52 08/13/16 06:52 Labs: Abnormal Lab Results - Last 24 Hours (Table) 08/13/16 08/13/16 08/13/16 Range/Units 06:52 06:52 07:30 RBC 3.55 L (3.80-5.40) m/uL Hgb 9.2 L (11.4-16.0) gm/dL Hct 29.7 L (34.0-46.0) % RDW 16.3 H (11.5-15.5) % BUN 18 H (7-17) mg/dL POC Glucose (mg/dL) 102 H (75-99) mg/dL Assessment and Plan (1) Abdominal pain Narrative/Plan: Continue diet as tolerated. No surgical intervention planned. We'll sign off at this point. Please contact if needed. Status: Acute
[2016-08-13 12:07] LABS: Glucose,Whole Blood 97 mg/dL (75-99)
[2016-08-13] MEDS: HYDROcodone/APAP 10-325MG 1 EACH TAB PO PRN (16:14)
[2016-08-13 16:53] LABS: Glucose,Whole Blood 99 mg/dL (75-99)
[2016-08-13] MEDS: DICYCLOMINE 10 MG CAP PO SCH ×2 (17:20→19:48)
[2016-08-13] MEDS: metFORMIN 500 MG TAB PO SCH (17:20)
--- NOTE | 2016-08-13 17:44 | PN ---
46-year-old female. SHE IS A FULL CODE. New data: Her height is 5 feet 5 inches, Her weight 199.58, body surface area 2.77 sq m, body mass index 73.2 kg. ALLERGY TO OXYCODONE AND procaine The patient seen today face to face and discussed with her current problem and Dr. Alvarez did see her in the hospital and he advised her to see Dr. Hadley who is taking care of the women's health in [facility]. After 2 weeks or after one week from the discharge to be evaluated of her uterus at that time and any vaginal discharge. He did not do any examination at that time and assuming that she will have this problem could be discussed with Dr. Hadley. In regard of her stool blood occult, we are just now able to get stool and it will be sent to the laboratory to see if it is positive for Hemoccult or not and if it is positive, I did discuss it with the nursing staff that they will call Dr. Lundberg to evaluate especially if the hemoglobin is low. On the laboratory today her hemoglobin is stable 9.2 and however, she is anemia and the hematocrit 29.7 with the resolution of the leukocytosis and currently her white count is normal 8.1. Her RDW has been elevated and the platelet count is normal. On the electrolytes done today indicating normal sodium and potassium and her BUN is 18, creatinine 0.93 with estimated glomerular filtration rate more than 60. Her blood sugar was this morning 91 and her average blood sugar was 137 with the hemoglobin A1c 6.4, which indicating to us that with the morbid obesity with BMI 73.2 that she is borderline diabetes mellitus and we will be with that and the risk factor we will be starting her on Glucophage 500 mg with meal. She had normal lactic acid. She has calcium was normal and we checked and magnesium was normal. Her iron 84, her TIBC was 318 and saturation was 26.4. Anemia was present at this time. Her liver enzymes were of 61, and AST and when the repeat today yesterday went back to normal and ALT was 20 and alkaline phosphatase is 60 and recovery was very good. Her serum amylase and lipase was negative but found to have hepatitis A antibodies which indicated recovery from infectious hepatitis A and hepatitis B is nonreactive and hepatitis C was negative. Hepatitis A, IgM currently negative. She denied any vaccination of hepatitis A in the past. Her fasting blood sugar the last 2 days was ranging between 117 to 124. However, this morning was 98. On vital signs, she has still with morbid obesity had tachycardia. Her temperature was 97.8 and respiratory rate was 20. Her blood pressure 132/94 and 106 and 99 is oxygen room air. On the examination, she stated that she had a cramp and squeeze after she had a bowel movement now and it is felt that she had irritable bowel syndrome. She has stated that she had 5 years ago colonoscopy and was negative. HEENT was negative. Neck was supple. Chest was clear and no wheezes, no rhonchi. HEART: The heart was regular sinus rhythm and the abdomen is morbidly obese and she has cramps that happened in the abdomen as low abdomen after the bowel movement. She had no diarrhea and solid BM. EXTREMITIES: She has large lower extremities. However, no pitting edema consideration of body habitus with the underlying weight. Her pulse ox 99%. Her pulses were perfuse in both lower extremities. She has a history of muscle spasms and hypothyroidism as well. ASSESSMENT: 1. Underlying abdominal pain with cramps. 2. Underlying vaginal traces of blood and seen by Dr. Lan. 3. Underlying blood in the stool with multiple association could be with the fissure or hemorrhoids. As well as anemia with hemoglobin 9.2. 4. Borderline diabetes with the hemoglobin A1c 6.4. 5. Morbid obesity BMI 73.2. 6. Neuropathy with the use of Gabapentin prior to the admission to the hospital. 7. History of hypertension and she takes Aldactone. PLAN: 1. We will check Hemoccult for the stool and if that was positive we will continue with monitoring as well as calling Dr. Lundberg who did see her initially the surgeon and to tell her in regard of her hemoglobin as well as she had stool for Hemoccult probably may need further investigation. 2. Starting on because of the weight, we need dietitian consultation as well as starting her on metformin. 3. For the irritable bowel syndrome, we will start Bentyl as a trial to see if that will help the patient cramps that she complains of. 4. We will repeat the TSH and free T4 for further evaluation of the hypothyroidism. MTDD
[2016-08-13 20:08] LABS: Glucose,Whole Blood 106 mg/dL (75-99)
[2016-08-13] MEDS: IBUPROFEN 600 MG TAB PO PRN (23:08)
[2016-08-14] MEDS: SODIUM CHLORIDE 0.9% 1,000 ML IV SCH (04:17)
[2016-08-14] MEDS: LEVOTHYROXINE 25 MCG TAB PO SCH (05:29)
[2016-08-14] MEDS: FUROSEMIDE 40 MG TAB PO SCH ×2 (05:29→11:46)
[2016-08-14 07:19] LABS: Glucose,Whole Blood 118 mg/dL (75-99)
[2016-08-14 07:19] LABS: Anisocytosis Slight; Basophils # (A) 0.1 k/uL (0-0.2); Basophils % (A) 2 %; CH 27.3; CHCM 32.7; Eosinophils # (A) 0.2 k/uL (0-0.7); Eosinophils % (A) 2 %; HCT 31.7 % (34.0-46.0); HDW 2.37; HGB 9.8 gm/dL (11.4-16.0); Luc # (Auto) 0.26; Luc % (Auto) 3; Lymphocytes # (A) 2.8 k/uL (1.0-4.8); Lymphocytes % (A) 33 %; MCH 25.9 pg (25.0-35.0); MCV 83.6 fL (80.0-100.0); Mean Platelet Volume 7.7; Monocytes # (A) 0.4 k/uL (0-1.0); Monocytes % (A) 5 %; Neutrophils # (A) 4.7 k/uL (1.3-7.7); Neutrophils % (A) 56 %; RBC 3.79 m/uL (3.80-5.40); RDW 16.5 % (11.5-15.5); WBC 8.5 k/uL (3.8-10.6); WBC (Perox) 8.98
[2016-08-14 07:29] LABS: Anion Gap 8 mmol/L; Blood Urea Nitrogen 20 mg/dL (7-17); Calcium 9.5 mg/dL (8.4-10.2); Carbon Dioxide 34 mmol/L (22-30); Chloride 99 mmol/L (98-107); Glucose 113 mg/dL (74-99); Non-African American GFR(MDRD) 58 (>60 ml/min/1.73 sqM); Potassium 4.4 mmol/L (3.5-5.1); Sodium 141 mmol/L (137-145)
[2016-08-14] MEDS: INSULIN LISPRO (humaLOG) 300 UNIT/3 ML VIAL SQ SCH ×3 (07:42→17:01)
[2016-08-14] MEDS: GABAPENTIN 300 MG CAP PO SCH (07:45)
[2016-08-14] MEDS: DICYCLOMINE 10 MG CAP PO SCH ×3 (07:46→16:46)
[2016-08-14] MEDS: FERROUS SULFATE 325 MG TAB PO SCH (07:46)
[2016-08-14] MEDS: HEPARIN SODIUM,PORCINE 5,000 UNIT/ML 1 ML VIAL SQ SCH ×2 (07:46→17:01)
[2016-08-14] MEDS: metFORMIN 500 MG TAB PO SCH ×2 (07:46→16:46)
[2016-08-14] MEDS: SPIRONOLACTONE 25 MG TAB PO SCH (07:46)
[2016-08-14] MEDS: CYCLOBENZAPRINE 10 MG TAB PO SCH ×2 (07:47→16:46)
[2016-08-14] MEDS: FAMOTIDINE 20 MG TAB PO SCH (07:48)
[2016-08-14 07:58] VITALS: RESP 18
[2016-08-14 09:32] LABS: Glucose,Whole Blood 152 mg/dL (75-99)
[2016-08-14 11:45] LABS: Glucose,Whole Blood 115 mg/dL (75-99)
[2016-08-14] MEDS: IBUPROFEN 600 MG TAB PO PRN (11:46)
--- NOTE | 2016-08-14 15:45 | P.DS ---
Providers Date of admission: 08/11/16 01:56 Attending physician: Pablito Vásquez Consults: 08/13/16 08:04 Consult Physician Routine Consulting Provider: Nikunj Alvarez Consult Reason/Comments: vaginal bleeding Do you want consulting provider notified?: Yes Primary care physician: Pablito Vásquez There is a dictation on the discharge summary by Dr. Hetal Mary [facility] in the temporary absence of Dr. Pablito Vásquez. Date of admission 08/11/2016. Date of discharge 08/14/2016. Final diagnoses Abdominal pain and cramps progressive #2 vaginal bleeding with a possible menorrhagia. Seen by Dr. Carter in OB/ COURTROOM REPORTER advised her to see Dr. Raf Deras first name who is her [employer] physician. # 3 anemia probably of chronic disease associated with vaginal bleeding. #4 morbid obesity stage IV BMI 73.2. #5 degenerative arthritis of the spine and joint associated with that weight. #6 irritable bowel syndrome treated with Bentyl as a trial total seen by Dr. Pablito Vásquez to evaluate which didn't help lessen the cramps. #7 costochondritis #8 musculoskeletal #9 patient has history of colonoscopy and the stool was negative for Hemoccult. Seen by Dr. Lundberg as well as Dr. Davison with no planning for procedure. #9 morbid obesity plus hemoglobin A1c 6.4 and fasting blood sugar as well as POC in the avendaño zone suggestive to pre-diabetic stage. We'll start her on metformin temporary total seen Dr. Vásquez and reevaluate. Hospital course: As patient admitted to the hospital several testing was done including x-ray of the thoracic lumbosacral indicating degenerative arthritis no compression fracture. With the severe cramp she had seen Dr. Lundberg the surgeon as well as subsequently Dr. Davison covering Dr. Lundberg as well wheezes no intention of any procedure. With her vaginal discharge patient seen [employer] Dr. Lan will advise the patient to see her COURTROOM REPORTER Dr. Braeden goff. As outpatient when discharged. Patient has morbid obesity, did her ambulation with the complaining of cramps with the consideration of irritable bowel syndrome patient started on Bentyl which did help the cramps but still have the vaginal discharge and blood, her laboratory indicating anemia of blood loss and chronic anemia added to that. Patient vital signs stable. [id number] exam at the time of discharge. Patient conscious alert oriented 3 discussed with her the current finding and the plan to follow up with Dr. Braeden goff, Dr. Pablito Vásquez, next week On examination HEENT negative neck was supple no JVD no thyromegaly no lymphadenopathy trachea midline. Chest clear to auscultation and percussion heart regular sinus rhythm Abdomen soft positive bowel sounds extremities no edema however she has large legs could be associated with lymphedema. Neurologically stable general condition no symptoms of dizziness or blurred vision. Assessment: Patient stable general condition to to go home and follow-up with the attending Dr. Vásquez and the COURTROOM REPORTER Dr. Goff Prescription given for tramadol Ultram 10 tablet to use it 1 pill twice a day when necessary, we discontinue [place] as well as Diflucan. Currently she will be on ibuprofen 600 mg 4 times a day and Bentyl 10 mg 4 times a day prescription given as well as metformin 500 mg twice a day. Patient Condition at Discharge: Fair Plan - Discharge Summary New Discharge Prescriptions: Dicyclomine [Bentyl] 10 mg PO QID #30 cap Ibuprofen [Motrin] 600 mg PO QID PRN #30 tab PRN Reason: Pain Control metFORMIN HCL [Glucophage] 500 mg PO BID-W/MEALS #30 tab traMADol HCl [Ultram] 50 mg PO BID #10 tab Discharge Medication List Cyclobenzaprine [Flexeril] 10 mg PO TID 08/28/14 [History] Ferrous Sulfate [Iron (65 MG Elemental)] 325 mg PO DAILY 08/28/14 [History] Gabapentin [Neurontin] 300 mg PO BID 08/28/14 [History] Potassium Chloride [Klor-Con 20] 20 meq PO BID 04/22/16 [History] Furosemide [Lasix] 40 mg PO BID #60 tablet 04/29/16 [Rx] ALPRAZolam [Xanax] 0.5 mg PO BID PRN #14 tablet 05/09/16 [Rx] Levothyroxine Sodium [Synthroid] 25 mcg PO DAILY 05/09/16 [History] Spironolactone 50 mg PO BID 08/10/16 [History] Dicyclomine [Bentyl] 10 mg PO QID #30 cap 08/14/16 [Rx] Ibuprofen [Motrin] 600 mg PO QID PRN #30 tab 08/14/16 [Rx] metFORMIN HCL [Glucophage] 500 mg PO BID-W/MEALS #30 tab 08/14/16 [Rx] traMADol HCl [Ultram] 50 mg PO BID #10 tab 08/14/16 [Rx] Follow up Appointment(s)/Referral(s): Pablito Vásquez MD [Primary Care Provider] - 3 Days Braeden Hadley MD [STAFF PHYSICIAN] - 3 Days Patient Instructions/Handouts: Diverticulosis (DC)
[2016-08-14 17:13] VITALS: BP 120/75; PULSE 86; TEMP 97.5
== END 2016-08-14 17:27 | disposition home or self-care (01) ==
LOC: EC 20:12 → 3SUR 08-11 01:56
PROVIDERS: ADMIT Internal Medicine; ATTEND Internal Medicine
DX: R10.11 Right upper quadrant pain (principal); K92.1 Melena; R73.03 Prediabetes; D50.0 Iron deficiency anemia secondary to blood loss (chronic); N93.9 Abnormal uterine and vaginal bleeding, unspecified; D72.829 Elevated white blood cell count, unspecified; E03.9 Hypothyroidism, unspecified; E66.01 Morbid (severe) obesity due to excess calories; Z68.45 Body mass index [BMI] 70 or greater, adult; E88.09 Other disorders of plasma-protein metabolism, not elsewhere classified; I10 Essential (primary) hypertension; I25.2 Old myocardial infarction; K58.9 Irritable bowel syndrome, unspecified; M47.9 Spondylosis, unspecified; M79.1 Myalgia; M94.0 Chondrocostal junction syndrome [Tietze]; N89.8 Other specified noninflammatory disorders of vagina; Z88.5 Allergy status to narcotic agent; Z79.899 Other long term (current) drug therapy; Z88.4 Allergy status to anesthetic agent; R26.9 Unspecified abnormalities of gait and mobility; Z79.84 Long term (current) use of oral hypoglycemic drugs; F41.9 Anxiety disorder, unspecified
CPT/HCPCS: 36415; 86803; 86705; 86709; 86335; 80053 ×2; 80048 ×2; 85652; 84443; 82150; 83036; 83540; 83550; 83605; 83690; 83735 ×2; 85025 ×4; 85730; 86334; 82272; 81003; 81025; 83525; 84165; 82306; 86708; 86337; 72072; 72110; 93971; 74176; 86704; 99285; 96374; 96375 ×2; G0378 ×4; J2270 ×2; J1644 ×4; J3360; J2405; J1885; 96372; 96376

== ENCOUNTER 2016-10-13 11:13 | Inpatient (IN) | payer MEDICARE, OTHER ==
--- NOTE | 2016-10-13 11:37 | ED ---
Extremity Problem HPI - General Chief complaint: Extremity Problem,Nontraumatic Stated complaint: fluid retention Source: patient Mode of arrival: ambulatory Limitations: no limitations - History of Present Illness Initial comments: Patient is a 46-year-old female who presents for evaluation for worsening lower extremity swelling and a wound on her right ankle over the last 3 days. Past medical history as below. Patient is a somewhat poor historian. She stated over the last 3 days she stopped taking her Lasix which she takes for lymphedema. She noticed worsening, bilateral lower extremities swelling. States that she has a wound that opened up on her right ankle. She's had this happen once before. She has worsening shortness of breath. Especially with ambulation. She states that she has "mild chest pain "that is intermittent in nature over the last 2 days. It is a dull type of pain. Nothing makes it better or worse. It is localized to the left side. She also admits to having increased urination which is why she stopped drinking as much water and stopped her Lasix. Denies any increased salt intake. No history of DVTs or pulmonary embolisms per the patient. She has a history of a "mild heart attack". Does not have a known history of congestive heart failure. Morbidly obese. Does not know her family history. Has never been a smoker. She currently admits to some mild nausea. Denies fever, chills, headache, changes of vision, URI symptoms, cough and active chest pain currently, vomiting, diarrhea, abdominal pain, pain or burning with urination. - Related Data Home Medications Medication Instructions Recorded Confirmed Cyclobenzaprine [Flexeril] 10 mg PO TID 08/28/14 10/13/16 Ferrous Sulfate [Iron (65 MG 325 mg PO DAILY 08/28/14 10/13/16 Elemental)] Gabapentin [Neurontin] 300 mg PO BID 08/28/14 10/13/16 Potassium Chloride [Klor-Con 20] 20 meq PO BID 04/22/16 10/13/16 Levothyroxine Sodium [Synthroid] 25 mcg PO DAILY 05/09/16 10/13/16 Spironolactone 50 mg PO BID 08/10/16 10/13/16 Previous Rx's Medication Instructions Recorded Furosemide [Lasix] 40 mg PO BID #60 tablet 04/29/16 ALPRAZolam [Xanax] 0.5 mg PO BID PRN #14 tablet 05/09/16 Dicyclomine [Bentyl] 10 mg PO QID #30 cap 08/14/16 Ibuprofen [Motrin] 600 mg PO QID PRN #30 tab 08/14/16 traMADol HCl [Ultram] 50 mg PO BID #10 tab 08/14/16 Allergies Allergy/AdvReac Type Severity Reaction Status Date / Time oxycodone HCl [From Percocet] Allergy Rash/Hives Verified 10/13/16 13:24 procaine HCl [From Novocain] Allergy facial Verified 10/13/16 13:24 swelling Review of Systems ROS Statement: Those systems with pertinent positive or pertinent negative responses have been documented in the HPI. ROS Other: All systems not noted in ROS Statement are negative. Past Medical History Past Medical History: Neurologic Disorder, Osteoarthritis (OA) Additional Past Medical History / Comment(s): chronic right leg wounds morbid obesity Last Myocardial Infarction Date:: 1989 History of Any Multi-Drug Resistant Organisms: None Reported Past Surgical History: Section, Tubal Ligation Additional Past Surgical History / Comment(s): colonoscopy Past Anesthesia/Blood Transfusion Reactions: No Reported Reaction Additional Past Anesthesia/Blood Transfusion Reaction / Comment(s): Pt has received blood in the past without reaction, once r/t childbirth and once due to anemia. Past Psychological History: Anxiety Additional Psychological History / Comment(s): Pt states she lives alone. She uses no assistive device. She can drive but does not own a car so she uses a cab or her insurance company for rides. She states her depression is stable at this time and has no suicidal thoughts or plans. She has had several suicide attempts in the past. Smoking Status: Never smoker Past Alcohol Use History: Rare Past Drug Use History: None Reported - Past Family History Father History Unknown: Yes Additional Family Medical History / Comment(s): Pt was adopted and does not know parents/family medical hx. General Exam Limitations: no limitations General appearance: alert, in no apparent distress Head exam: Present: atraumatic, normocephalic, normal inspection Eye exam: Present: normal appearance, PERRL, EOMI. Absent: scleral icterus, conjunctival injection, periorbital swelling ENT exam: Present: normal exam, mucous membranes moist Neck exam: Present: normal inspection. Absent: tenderness, meningismus, lymphadenopathy Respiratory exam: Present: normal lung sounds bilaterally, other (Diminished breath sounds at the lung bases bilaterally. No wheezes rales or rhonchi. Some conversational dyspnea. No hypoxia. No tachypnea.). Absent: respiratory distress, wheezes, rales, rhonchi, stridor Cardiovascular Exam: Present: regular rate, normal rhythm, normal heart sounds. Absent: systolic murmur, diastolic murmur, rubs, gallop, clicks GI/Abdominal exam: Present: soft, normal bowel sounds, other (Abdomen is soft and nontender. Morbidly obese. No peritoneal signs.). Absent: distended, tenderness, guarding, rebound, rigid Extremities exam: Present: normal inspection, full ROM, normal capillary refill , pedal edema, other (Bilateral lower extremity swelling. Very tender to the touch on the right lower extremity. There is a superficial wound to the posterior aspect of the right ankle. Limited range of motion secondary to lymphedema. Distal pulses are not palpated. However, the lower extremity was warm to the touch with normal sensation.). Absent: tenderness, joint swelling, calf tenderness Back exam: Present: normal inspection Neurological exam: Present: alert, oriented X3, CN II-XII intact Psychiatric exam: Present: normal affect, normal mood Skin exam: Present: warm, dry, intact, normal color. Absent: rash Course Vital Signs 10/13/16 11:21 Temperature 98.7 F Pulse Rate 102 H Respiratory 18 Rate Blood Pressure 141/87 O2 Sat by Pulse 97 Oximetry Medical Decision Making - Medical Decision Making Patient presents for evaluation for worsening lymphedema over the last 3 days with right lower extremity pain and a superficial wounds. She states she has no history of diabetes but admits to increased urinary frequency which is why she stopped taking the Lasix which she is regularly prescribed. No known history of CHF. Clinical concern for worsening lymphedema versus congestive heart failure she is more short of breath with ambulation. She is also having mild chest discomfort. We'll order cardiac workup including a BNP, urinalysis, venous duplex of the lower extremity is bilaterally, plain films of the right ankle for consideration for osteomyelitis, chest x-ray. Aspirin. 1310: Laboratory studies still pending. Just finished venous duplex. Pain acutely worsen secondary to the study. She takes [place] at home. We'll order 4 mg IV morphine and 4 mg IV Zofran. CBC and CMP within normal limits. Awaiting rest of workup. 1430: Venous duplex negative. Awaiting XR images. EKG revealed normal sinus rhythm at 98. MD 146. QRS 86. QTc 459. No ST changes. 1500: Chest x-ray revealed no definitive acute process. Reviewed plain films of the right ankle which revealed some spurs to the heel. Likely chronic secondary to her weight. Page 2 the patient's PCP for further recommendations. She does have a wound to the right ankle. No definitive cellulitis but it is exquisitely painful. -Spoke with Dr. Vásquez. Agrees to observation. Requesting antibiotic for cellulitis in the right lower extremity. Diuretics. Pain medications. - Lab Data Result diagrams: 10/13/16 12:10 10/13/16 12:10 Lab Results 10/13/16 10/13/16 10/13/16 Range/Units 12:10 12:10 12:10 WBC 10.0 (3.8-10.6) k/uL RBC 3.67 L (3.80-5.40) m/uL Hgb 10.2 L (11.4-16.0) gm/dL Hct 31.9 L (34.0-46.0) % MCV 87.0 (80.0-100.0) fL MCH 27.8 (25.0-35.0) pg MCHC 31.9 (31.0-37.0) g/dL RDW 16.2 H (11.5-15.5) % Plt Count 345 (150-450) k/uL Neutrophils % 60 % Lymphocytes % 30 % Monocytes % 5 % Eosinophils % 2 % Basophils % 0 % Neutrophils # 6.0 (1.3-7.7) k/uL Lymphocytes # 3.0 (1.0-4.8) k/uL Monocytes # 0.5 (0-1.0) k/uL Eosinophils # 0.3 (0-0.7) k/uL Basophils # 0.0 (0-0.2) k/uL Hypochromasia Slight Anisocytosis Slight PT (9.0-12.0) sec INR (<1.1) APTT (22.0-30.0) sec Sodium 144 (137-145) mmol/L Potassium 4.6 (3.5-5.1) mmol/L Chloride 106 (98-107) mmol/L Carbon Dioxide 27 (22-30) mmol/L Anion Gap 11 mmol/L BUN 14 (7-17) mg/dL Creatinine 0.74 (0.52-1.04) mg/dL Est GFR (MDRD) Af Amer >60 (>60 ml/min/1.73 sqM) Est GFR (MDRD) Non-Af >60 (>60 ml/min/1.73 sqM) Glucose 110 H (74-99) mg/dL Calcium 9.0 (8.4-10.2) mg/dL Magnesium 2.1 (1.6-2.3) mg/dL Total Bilirubin 0.7 (0.2-1.3) mg/dL AST 21 (14-36) U/L ALT 16 (9-52) U/L Alkaline Phosphatase 68 (38-126) U/L Total Creatine Kinase 648 H (30-135) U/L CK-MB (CK-2) 0.9 (0.0-2.4) ng/mL CK-MB (CK-2) Rel Index 0.1 Troponin I <0.012 (0.000-0.034) ng/mL NT-Pro-B Natriuret Pep pg/mL Total Protein 8.1 (6.3-8.2) g/dL Albumin 4.1 (3.5-5.0) g/dL 10/13/16 10/13/16 Range/Units 12:10 12:10 WBC (3.8-10.6) k/uL RBC (3.80-5.40) m/uL Hgb (11.4-16.0) gm/dL Hct (34.0-46.0) % MCV (80.0-100.0) fL MCH (25.0-35.0) pg MCHC (31.0-37.0) g/dL RDW (11.5-15.5) % Plt Count (150-450) k/uL Neutrophils % % Lymphocytes % % Monocytes % % Eosinophils % % Basophils % % Neutrophils # (1.3-7.7) k/uL Lymphocytes # (1.0-4.8) k/uL Monocytes # (0-1.0) k/uL Eosinophils # (0-0.7) k/uL Basophils # (0-0.2) k/uL Hypochromasia Anisocytosis PT 10.1 (9.0-12.0) sec INR 1.0 (<1.1) APTT 24.9 (22.0-30.0) sec Sodium (137-145) mmol/L Potassium (3.5-5.1) mmol/L Chloride (98-107) mmol/L Carbon Dioxide (22-30) mmol/L Anion Gap mmol/L BUN (7-17) mg/dL Creatinine (0.52-1.04) mg/dL Est GFR (MDRD) Af Amer (>60 ml/min/1.73 sqM) Est GFR (MDRD) Non-Af (>60 ml/min/1.73 sqM) Glucose (74-99) mg/dL Calcium (8.4-10.2) mg/dL Magnesium (1.6-2.3) mg/dL Total Bilirubin (0.2-1.3) mg/dL AST (14-36) U/L ALT (9-52) U/L Alkaline Phosphatase (38-126) U/L Total Creatine Kinase (30-135) U/L CK-MB (CK-2) (0.0-2.4) ng/mL CK-MB (CK-2) Rel Index Troponin I (0.000-0.034) ng/mL NT-Pro-B Natriuret Pep 25 pg/mL Total Protein (6.3-8.2) g/dL Albumin (3.5-5.0) g/dL Disposition Clinical Impression: Cellulitis, Leg swelling, Impaired gait Disposition: ADMITTED IP TO THIS [facility] Condition: Fair Decision to Admit Reason: Admit from EC
[2016-10-13] MEDS ORDERED: ASPIRIN 81 MG CHEW PO STA (11:48)
[2016-10-13 12:36] LABS: Anisocytosis Slight; Basophils % (A) 0 %; CH 27.4; CHCM 31.6; Eosinophils # (A) 0.3 k/uL (0-0.7); Eosinophils % (A) 2 %; HCT 31.9 % (34.0-46.0); HDW 2.49; HGB 10.2 gm/dL (11.4-16.0); Hypochromasia Slight; Luc # (Auto) 0.22; Luc % (Auto) 2; Lymphocytes % (A) 30 %; MCH 27.8 pg (25.0-35.0); MCHC 31.9 g/dL (31.0-37.0); Mean Platelet Volume 6.4; Monocytes # (A) 0.5 k/uL (0-1.0); Monocytes % (A) 5 %; Neutrophils % (A) 60 %; RBC 3.67 m/uL (3.80-5.40); RDW 16.2 % (11.5-15.5); WBC (Perox) 10.17
[2016-10-13 12:46] LABS: ALT 16 U/L (9-52); AST 21 U/L (14-36); Alkaline Phosphatase 68 U/L (38-126); Anion Gap 11 mmol/L; Blood Urea Nitrogen 14 mg/dL (7-17); Carbon Dioxide 27 mmol/L (22-30); Chloride 106 mmol/L (98-107); Glucose 110 mg/dL (74-99); Magnesium 2.1 mg/dL (1.6-2.3); Non-African American GFR(MDRD) >60 (>60 ml/min/1.73 sqM); Potassium 4.6 mmol/L (3.5-5.1); Sodium 144 mmol/L (137-145); Total Bilirubin 0.7 mg/dL (0.2-1.3); Total Protein 8.1 g/dL (6.3-8.2)
[2016-10-13 13:04] LABS: Partial Thromboplastin Time 24.9 sec (22.0-30.0); Prothrombin Time 10.1 sec (9.0-12.0)
[2016-10-13] MEDS ORDERED: MORPHINE SULFATE 4 MG/ML SYRINGE IVP STA (13:07)
[2016-10-13] MEDS ORDERED: ONDANSETRON 4 MG/2 ML VIAL IVP STA (13:07)
[2016-10-13 13:08] LABS: Creatine Kinase 648 U/L (30-135)
[2016-10-13 13:22] LABS: Creatine Kinase MB 0.9 ng/mL (0.0-2.4); Troponin I <0.012 ng/mL (0.000-0.034)
--- NOTE | 2016-10-13 13:59 | US ---
EXAMINATION TYPE: US venous doppler duplex LE DATE OF EXAM: 10/13/2016 1:10 PM COMPARISON: NONE CLINICAL HISTORY: Pain. SIDE PERFORMED: Bilateral TECHNIQUE: The lower extremity deep venous system is examined utilizing real time linear array sonog ariel with graded compression, doppler sonography and color-flow sonography. VESSELS IMAGED: External Iliac Vein (EIV) Common Femoral Vein Deep Femoral Vein Greater Saphenous Vein * Femoral Vein Popliteal Vein Small Saphenous Vein * Proximal Calf Veins (* superficial vessels) Patient 5'5, 443lbs, technically difficult and somewhat limited exam. Right Leg: Appears negative for DVT with technical limitations. Left Leg: Appears negative for DVT with technical limitations, unable to visualized mid and distal f emoral v for compression views due to body habitus. IMPRESSION: 1. Limited exam demonstrates no obvious evidence of DVT as visualized. See above regarding limitation s of the exam.
--- NOTE | 2016-10-13 14:40 | XR ---
EXAMINATION TYPE: XR ankle complete RT DATE OF EXAM: 10/13/2016 2:22 PM COMPARISON: NONE HISTORY: 46 year-old female right leg cellulitis, pain TECHNIQUE: 3 views FINDINGS: Large patient body habitus with a diffuse edematous change throughout the subcutaneous fat. There is degenerative change at the tibiotalar and talofibular joints with subchondral cystic change and marginal spurring. Ossification at the Achilles insertion suggesting prior injury. Small plantar calcaneal spur. No acute fracture or dislocation. IMPRESSION: 1. Edematous soft tissues. Large patient body habitus. 2. Ankle osteoarthrosis. No acute osseous abnormality seen. 3. Findings suggest old injury to the Achilles insertion. Small plantar calcaneal spur.
--- NOTE | 2016-10-13 14:42 | XR ---
EXAMINATION TYPE: XR chest 2V DATE OF EXAM: 10/13/2016 2:22 PM COMPARISON: 04/22/2016 HISTORY: 46-year-old female with fluid retention, pain TECHNIQUE: AP and lateral views FINDINGS: There is convexly marginated opacity projecting over the inferior half of the heart suspected to repr esent panniculus. The heart is upper limits of normal in size. Aorta and pulmonary vasculature within normal limits. Large patient body habitus results in underpenetration. No evidence consolidation or pleural effusion. IMPRESSION: Suspect panniculus projecting over the lower half of the heart. No definite acute process.
[2016-10-13] MEDS ORDERED: NALOXONE 0.4 MG/ML 1 ML VIAL IV PRN (15:06)
[2016-10-13] MEDS ORDERED: ONDANSETRON 4 MG/2 ML VIAL IVP PRN (15:06)
[2016-10-13] MEDS ORDERED: MORPHINE SULFATE 4 MG/ML SYRINGE IV PRN (15:06)
[2016-10-13] MEDS ORDERED: IV VANCOMYCIN PER PHARMACY 1 EACH MISC MISCELLANE PRN (15:07)
[2016-10-13] MEDS ORDERED: FUROSEMIDE 10 MG/ML 4 ML VIAL IV STA (15:07)
[2016-10-13 15:59] LABS: Amorphous Sediment,Urine Rare /hpf; Appearance,Urine Clear (Clear); Bilirubin,Urine Negative (Negative); Glucose,Urine (UA) Negative (Negative); Ketones,Urine Negative (Negative); Leukocyte Esterase,Urine Small (Negative); Nitrite,Urine Negative (Negative); Particle Count 2239; Protein,Urine Negative (Negative); RBC,Urine <1 /hpf (0-5); Specific Gravity,Urine 1.008 (1.001-1.035); Squamous Epithelial Cell,Urine 1 /hpf (0-4); UA Billing (MACRO vs. MICRO) MICRO; Urobilinogen,Urine <2.0 mg/dL (<2.0); WBC,Urine 3 /hpf (0-5)
[2016-10-13] MEDS ORDERED: VANCOMYCIN 2,500 MG in SODIUM CHLORIDE 0.9% 500 ML IVPB ONE (16:00)
[2016-10-13] MEDS ORDERED: FUROSEMIDE 10 MG/ML 2 ML VIAL IV ONE (17:15)
[2016-10-13] MEDS: DICYCLOMINE 10 MG CAP PO SCH ×2 (17:30→21:27)
[2016-10-13] MEDS: POTASSIUM CHLORIDE ER 20 MEQ TAB.ER PO SCH (21:27)
[2016-10-13] MEDS: CYCLOBENZAPRINE 10 MG TAB PO SCH (21:28)
[2016-10-13] MEDS: GABAPENTIN 300 MG CAP PO SCH (21:28)
[2016-10-13] MEDS: SPIRONOLACTONE 25 MG TAB PO SCH (21:28)
[2016-10-13] MEDS: traMADol 50 MG TAB PO SCH (21:34)
--- NOTE | 2016-10-13 23:14 | HP ---
DATE OF ADMISSION: 10/13/2016 CHIEF COMPLAINT: Severe edema of the lower extremities and cellulitis involving the right leg and ankle and severe generalized pain. HISTORY OF PRESENT ILLNESS: This is a 46-year-old female who has long-standing history of chronic illnesses related to her morbid obesity. She has been in the hospital with severe swelling and edema of the lower extremities and inability to move around because of the severe swelling and pain of both the lower extremities and also she has a history of low back pain. She has been in the hospital in the past with cellulitis of the lower extremities and this time also she has similar symptoms with obvious infection and wound and swelling of especially the right lower extremity and ankle. She was having this symptom progressively getting worse for the past 2 weeks and she is not able to move around and walk. She has very much difficulty in walking because of the swelling and the pain in the right lower extremity. She was evaluated in the emergency room and her CBC showed a WBC count of 10,000. Hemoglobin 12.2 and platelet count 345,000. Sodium 144, potassium 4.6, BUN 14, creatinine 0.74 and liver enzymes within normal limits. Her CK was 648, but cardiac enzymes are within normal limits with troponin less than 0.012. She is admitted to the hospital for further evaluation and treatment. Her past medical history reveals that as mentioned before, she has morbid obesity. She also has chronic anemia. She has been on ferrous sulfate. She also has a history of mental depression, chronic low back pain. Her medications include: 1. Ultram 50 mg p.o. b.i.d. p.r.n. 2. She is also on Motrin p.r.n. 3. She also has been taking [place] p.r.n. for pain. 4. Neurontin. 5. Spironolactone 50 mg p.o. b.i.d. 6. Synthroid 25 mcg daily. 7. Ferrous sulfate 325 mg p.o. daily. 8. Bentyl 10 mg q.i.d. p.r.n. 9. Xanax 0.5 mg p.o. b.i.d. p.r.n. 10. Flexeril 10 mg p.o. t.i.d. p.r.n. SHE IS ALLERGIC TO NOVOCAIN AND PERCOCET. She has had no major operations. FAMILY HISTORY: Strongly positive for psychiatric problems and obesity. REVIEW OF SYSTEMS: Patient denies any headache and she has no chest pain. She has no cough. She has generalized abdominal pain. She has no polyuria or dysuria, but she had some urinary incontinence. She has some marked edema of the lower extremities and cellulitis involving the right leg and ankle. She has no neurological symptoms now. Physical examination reveals a 46-year-old female, markedly and morbidly obese. She is alert and oriented. She is complaining of generalized pain and especially she has extreme pain in the right lower extremity and the ankle. There is no jaundice. There is no generalized lymphadenopathy. There are no petechiae or bruises. She is afebrile. Her pulse is 72 per minute, regular. Blood pressure 140/78. ENT: Negative. Neck is supple. There is no jugular venous distention. There is no goiter. There are no carotid bruits. Heart is in sinus rhythm. Lungs reveals diminished breath sounds over both bases. No rales or rhonchi. ABDOMEN: Soft and nontender. There is no mass palpable. It is markedly obese. Lower extremities revealed marked edema and there are blisters and also open wound seen in the right lower part of the leg and also involving the ankle. Neurologic does not reveal any localizing signs. IMPRESSION: 1. Severe swelling and edema of the lower extremities bilaterally. 2. Cellulitis of the right leg and ankle. 3. Anemia, possibly due to chronic disease. 4. Hypothyroidism. 5. History of chronic low back pain. 6. History of mental depression. PLAN: The patient will be admitted to hospital Will start her on IV antibiotics and also IV Lasix and place her back on her previous home medications. Prognosis is guarded. Will also get infectious disease consultation.
[2016-10-14] MEDS: HYDROmorphone 2 MG/ML 1 ML SYRINGE IVP PRN ×3 (03:15→18:47)
[2016-10-14] MEDS: VANCOMYCIN 2,500 MG in SODIUM CHLORIDE 0.9% 500 ML IVPB SCH ×2 (05:06→18:46)
[2016-10-14] MEDS: LEVOTHYROXINE 25 MCG TAB PO SCH (05:41)
[2016-10-14] MEDS: ALPRAZolam 0.5 MG TAB PO PRN (05:47)
[2016-10-14] MEDS: DICYCLOMINE 10 MG CAP PO SCH ×4 (08:31→21:45)
[2016-10-14] MEDS: CYCLOBENZAPRINE 10 MG TAB PO SCH ×3 (08:31→21:46)
[2016-10-14] MEDS: SPIRONOLACTONE 25 MG TAB PO SCH ×2 (08:31→21:45)
[2016-10-14] MEDS: POTASSIUM CHLORIDE ER 20 MEQ TAB.ER PO SCH ×2 (08:31→21:45)
[2016-10-14] MEDS: FERROUS SULFATE 325 MG TAB PO SCH (08:31)
[2016-10-14] MEDS: GABAPENTIN 300 MG CAP PO SCH ×2 (08:31→21:45)
[2016-10-14] MEDS: traMADol 50 MG TAB PO SCH ×2 (08:32→21:51)
[2016-10-14] MEDS: FUROSEMIDE 40 MG TAB PO SCH ×2 (08:32→16:05)
[2016-10-14 08:52] LABS: Anion Gap 7 mmol/L; Blood Urea Nitrogen 14 mg/dL (7-17); Calcium 9.1 mg/dL (8.4-10.2); Carbon Dioxide 32 mmol/L (22-30); Chloride 103 mmol/L (98-107); Glucose 123 mg/dL (74-99); Non-African American GFR(MDRD) >60 (>60 ml/min/1.73 sqM); Potassium 4.2 mmol/L (3.5-5.1); Sodium 142 mmol/L (137-145)
[2016-10-14] MEDS ORDERED: RX INFO: IV CONTRAST WAS GIVEN 1 EACH MISC MISCELLANE PRN (10:10)
[2016-10-14] MEDS: IOHEXOL 350 MG/ML 25 ML BOTTLE (ORAL USE) PO PRN ×2 (10:57→12:35)
--- NOTE | 2016-10-14 12:40 | PN ---
DATE OF SERVICE: 10/14/2016 This is a 46-year-old female who is morbidly obese and patient was brought to the emergency room with marked edema of the lower extremities and also having difficulty in walking and moving around and she also has an infection and cellulitis of the right leg and also right ankle. Patient was admitted to the hospital for further evaluation and treatment. Patient is currently receiving IV antibiotics and is getting vancomycin and Infectious Disease consultation has been requested and Dr. Jama is going to see the patient today and patient also has a lot of fluid retention and the patient is getting Lasix 40 mg p.o. IV b.i.d. and also she is on spironolactone and she has been placed back on her previous home medications as she has history of low back pain and degenerative arthritis of multiple joints. Patient today seems to be slightly more comfortable and vital signs are stable. She is afebrile and patient apparently has a lot of lymphedema involving the abdominal wall and bilateral lower extremities. Will get a CT scan of the abdomen and pelvis to rule out any cause for the lymphatic obstruction and, otherwise will continue current medications and Dr. Jama is going to see the patient today. Overall prognosis guarded.
[2016-10-14 13:49] VITALS: BMI 72.1
--- NOTE | 2016-10-14 14:17 | CT ---
EXAMINATION TYPE: CT abdomen pelvis w con DATE OF EXAM: 10/14/2016 1:53 PM COMPARISON: 08/10/2016 and 10/11/2013 HISTORY: 46-year-old female complains of right leg swelling and wounds. Fluid buildup. TECHNIQUE: Contiguous axial scanning of the abdomen and pelvis following administration of 100 ml Omn ipaque 300 IV contrast. Delayed images through the kidneys and coronal/sagittal reconstructions perf ormed. CT DLP: 5133.4 mGycm Automated exposure control for dose reduction was used. FINDINGS: The heart is upper limits of normal in size without pericardial effusion. Strandy atelectasis at the inferior lingula without pleural effusion. The hepatic dome was excluded on the portal venous phase series. No focal liver lesion seen. Gallblad mikey is mildly hydropic measuring 4.3 cm wide. No biliary ductal dilatation seen. Adrenal glands, right kidney, and pancreas show no gross abnormality. Subcentimeter hypodensity later al mid left kidney too small for accurate CT characterization, probable cyst. Subcentimeter hypodensi ty within the spleen is unchanged from 2013 suggesting a benign etiology. No dilated small bowel, free fluid, or free air. Small fatty umbilical hernia redemonstrated. Normal appendix. Oral contrast has progressed to the mid to distal transverse colon. There is left hemicolonic diverti culosis without pericolonic inflammatory change. No mesenteric or retroperitoneal lymphadenopathy seen. Bladder is urine distended. Uterus and left ovary are visualized. Right ovary may be small. No abnorm al fluid collection in the pelvis. Borderline enlarged external iliac chain lymph nodes measuring up to 9 mm are unchanged from 08/10/2016 and minimally larger from 2013, probably reactive/post inflammat ory. Mild diffuse edematous changes throughout the subcutaneous fat. Bones: At least moderate degenerative changes of both hips. Additional degenerative changes at the sa croiliac joints and lower lumbar spine. End plate spondylosis lower thoracic spine. No osseous destru ctive process. IMPRESSION: 1. MILD EDEMATOUS STRANDING THROUGHOUT THE PATIENT'S SUBCUTANEOUS FAT. 2. MILD GALLBLADDER HYDROPS PROBABLY DUE TO FASTING STATE. CLINICALLY CORRELATE. IF RIGHT UPPER QUADR ANT PAIN OR CONCERN FOR EARLY ACUTE CHOLECYSTITIS, FOLLOW-UP ULTRASOUND OR HIDA SCAN. 3. LEFT HEMICOLONIC DIVERTICULOSIS WITHOUT CONVINCING EVIDENCE FOR ACUTE DIVERTICULITIS. 4. SMALL FATTY UMBILICAL HERNIA REDEMONSTRATED.
--- NOTE | 2016-10-14 22:45 | CONS ---
DATE OF CONSULTATION: 10/14/2016 REASON FOR CONSULTATION: Right lower extremity wound and cellulitis. HISTORY OF PRESENT ILLNESS: The patient is a 46-year-old morbidly obese -[place] female previously treated for the right lower extremity wound and cellulitis. Patient says she was doing well; however, over the last 3 days she developed another blister on the right posterior leg area that has opened up, leading to a superficial ulceration. The area is painful. She describes the pain to be sharp, 3 to 4 out of 10, and no radiation. Patient did have some initial drainage which was clear with some surrounding redness. With these symptoms, the patient presented to the [facility] ER, where the patient has been evaluated by the ER physician. Patient does not have any elevated white count. No fever. She has been diagnosed with possible cellulitis. The patient has been started on vancomycin. ID was consulted for further recommendations regarding antibiotic therapy. REVIEW OF SYSTEMS: CONSTITUTIONAL: Positive for weakness. No high-grade fever. EYES: No complaint. ENT: No complaint. RESPIRATORY: No complaint. CARDIOVASCULAR: No complaint. GENITOURINARY: No complaint. GASTROINTESTINAL: No complaint. MUSCULOSKELETAL: No complaint. INTEGUMENTARY: As per HPI. PSYCHOLOGIC: No complaint. ENDOCRINE: No complaint. NEUROLOGICAL: No complaint. Past medical history is significant for: 1. Osteoarthritis. 2. Morbid obesity. 3. Right leg wound. PAST SURGICAL HISTORY: 1. . 2. Tubal ligation. SOCIAL HISTORY: Remote history of smoking. No drinking or drug use. FAMILY HISTORY: Unknown, as the patient was adopted. ALLERGIES: 1. TYLENOL. 2. OXYCODONE. 3. PROCAINE. Medications include: 1. Xanax. 2. Flexeril. 3. Bentyl. 4. Iron sulfate. 5. Lasix. 6. Neurontin. 7. Dilaudid. 8. Synthroid. 9. Narcan. 10. Zofran. 11. K-Dur. 12. Aldactone. 13. Ultram. 14. Vancomycin. On examination, blood pressure is 110/61 with a pulse of 94, temperature 97.5. She is 95% on room air. General description is a middle-aged female lying in bed in no distress. HEENT EXAMINATION: Pallor. No scleral icterus. Oral mucous membrane dry. NECK: Trachea is central. No thyromegaly. LUNGS: Unlabored breathing. Clear to auscultation anteriorly. HEART: S1, S2. Regular rate and rhythm. ABDOMEN: Soft. No tenderness. RIGHT POSTERIOR LEG: Wound more like a blister with good granulation tissue at the base. No surrounding erythema. Slightly tender to touch, though. LABS: Hemoglobin is 10.2, white count 10. BUN of 14, creatinine 1.0. UA has been negative. Blood culture obtained; currently pending. DIAGNOSTIC IMPRESSION AND PLAN: Patient with right lower extremity wound with some secondary cellulitis; likely organism will be gram positive skin gabi and the patient has been admitted to hospital will need to cover for the possible MRSA. PLAN: 1. Will continue the patient on vancomycin, Pharmacy to dose, target of 15, while waiting for the culture to finalize. 2. Will apply Aquacel Silver dressing to the wound followed by an Edgar wrap from above to toe for below the knee area. 3. Will follow up on the clinical condition and culture to further adjust medication if needed. Thank you for this consultation. Will follow this patient along with you. GIGI
[2016-10-15] MEDS: HYDROmorphone 2 MG/ML 1 ML SYRINGE IVP PRN ×3 (01:24→16:49)
[2016-10-15] MEDS: ALPRAZolam 0.5 MG TAB PO PRN (05:18)
[2016-10-15] MEDS: LEVOTHYROXINE 25 MCG TAB PO SCH (05:19)
[2016-10-15] MEDS: VANCOMYCIN 2,500 MG in SODIUM CHLORIDE 0.9% 500 ML IVPB SCH ×2 (05:19→16:53)
[2016-10-15] MEDS: FUROSEMIDE 40 MG TAB PO SCH ×2 (08:25→16:52)
[2016-10-15] MEDS: DICYCLOMINE 10 MG CAP PO SCH ×4 (08:25→22:05)
[2016-10-15] MEDS: CYCLOBENZAPRINE 10 MG TAB PO SCH ×3 (08:25→22:05)
[2016-10-15] MEDS: POTASSIUM CHLORIDE ER 20 MEQ TAB.ER PO SCH ×2 (08:25→22:05)
[2016-10-15] MEDS: GABAPENTIN 300 MG CAP PO SCH ×2 (08:25→22:04)
[2016-10-15] MEDS: SPIRONOLACTONE 25 MG TAB PO SCH ×2 (08:25→22:05)
[2016-10-15] MEDS: traMADol 50 MG TAB PO SCH ×2 (13:01→22:09)
[2016-10-15] MEDS: FERROUS SULFATE 325 MG TAB PO SCH (13:01)
--- NOTE | 2016-10-15 14:07 | PN ---
DATE OF SERVICE: 10/15/2016 This is a 46-year-old female who has multiple chronic medical problems. She is morbidly obese and has had chronic anemia, major depression, chronic low back pain, recurrent episodes of marked edema of the lower extremities and cellulitis. Patient was admitted this time with similar symptoms of extreme swelling of the lower extremities and cellulitis involving the right leg. Patient has been started on IV Lasix and IV antibiotics. Currently she is receiving vancomycin. She was seen by Dr. Jama in consultation. She is getting IV Lasix and the edema shows slight improvement, but it is still extremely edematous and she also has some lymphedema. Her vital signs are otherwise stable. She has been placed back on her previous home medications. Dr. Jama is following the patient in regards to the antibiotic treatment. As the edema is persisting, I will get a nephrology consultation. Also will get an echocardiogram to rule out any cardiac etiology for this edema. Prognosis guarded.
--- NOTE | 2016-10-15 16:45 | ECHOF ---
Referral Reason:severe edema MEASUREMENTS -------- HEIGHT: 165.1 cm WEIGHT: 196.4 kg BP: IVSd: 1.2 cm (0.6 - 1.1) LVIDd: 2.8 cm (3.9 - 5.3) LVPWd: 1.6 cm (0.6 - 1.1) IVSs: 1.8 cm LVIDs: 2.3 cm LVPWs: 1.6 cm Ao Diam: 3.1 cm (2.0 - 3.7) AV Cusp: 1.9 cm (1.5 - 2.6) LA Diam: 3.2 cm (2.7 - 3.8) MV EXCURSION: 12.885 mm (> 18.000) MV EF SLOPE: 73 mm/s (70 - 150) EPSS: 1.4 cm MV E Jcarlos: 0.57 m/s MV DecT: 141 ms MV A Jcarlos: 0.50 m/s MV E/A Ratio: 1.13 RAP: 5.00 mmHg RVSP: 11.51 mmHg FINDINGS -------- Sinus rhythm. This was a technically difficult study with suboptimal views. Morbid Obesity Limited Study There is moderate concentric left ventricular hypertrophy. Overall left ventricular systolic function is low-normal with, an EF between 50 - 55 %. The RV was not well visualized. The left atrium is normal in size. The right atrium was not well visualized. The aortic valve was not well visualized. The mitral valve leaflets are mildly thickened. There is trace mitral regurgitation. Trace tricuspid regurgitation present. The right ventricular systolic pressure, as measured by Doppler, is 11.51mmHg. The pulmonic valve was not well visualized. The pericardium is normal. CONCLUSIONS -------- 1. Sinus rhythm. 2. The mitral valve leaflets are mildly thickened. 3. There is trace mitral regurgitation. 4. Trace tricuspid regurgitation present. 5. The right ventricular systolic pressure, as measured by Doppler, is 11.51mmHg. 6. The pulmonic valve was not well visualized. 7. The pericardium is normal. 8. This was a technically difficult study with suboptimal views. 9. Morbid Obesity 10. Limited Study 11. There is moderate concentric left ventricular hypertrophy. 12. The RV was not well visualized. 13. The left atrium is normal in size. 14. The right atrium was not well visualized. 15. The aortic valve was not well visualized. HEAT TREATMENT TECHNICIAN: Alexsandra Sullivan RDCS
[2016-10-16] MEDS: HYDROmorphone 2 MG/ML 1 ML SYRINGE IVP PRN ×4 (00:53→18:27)
[2016-10-16] MEDS ORDERED: VANCOMYCIN TROUGH DUE 1 EACH MISC MISCELLANE ONE (05:00)
[2016-10-16] MEDS: LEVOTHYROXINE 25 MCG TAB PO SCH (05:52)
[2016-10-16 06:25] LABS: Anion Gap 7 mmol/L; Blood Urea Nitrogen 14 mg/dL (7-17); Calcium 9.9 mg/dL (8.4-10.2); Carbon Dioxide 33 mmol/L (22-30); Chloride 97 mmol/L (98-107); Glucose 96 mg/dL (74-99); Non-African American GFR(MDRD) >60 (>60 ml/min/1.73 sqM); Potassium 4.6 mmol/L (3.5-5.1); Sodium 137 mmol/L (137-145)
[2016-10-16] MEDS: VANCOMYCIN 2,500 MG in SODIUM CHLORIDE 0.9% 500 ML IVPB SCH (06:30)
[2016-10-16] MEDS: traMADol 50 MG TAB PO SCH ×2 (08:19→21:34)
[2016-10-16] MEDS: FERROUS SULFATE 325 MG TAB PO SCH (08:19)
[2016-10-16] MEDS: SPIRONOLACTONE 25 MG TAB PO SCH ×2 (08:20→21:35)
[2016-10-16] MEDS: DICYCLOMINE 10 MG CAP PO SCH ×4 (08:20→21:35)
[2016-10-16] MEDS: CYCLOBENZAPRINE 10 MG TAB PO SCH ×3 (08:20→21:36)
[2016-10-16] MEDS: POTASSIUM CHLORIDE ER 20 MEQ TAB.ER PO SCH ×2 (08:20→21:35)
[2016-10-16] MEDS: FUROSEMIDE 40 MG TAB PO SCH (08:20)
[2016-10-16] MEDS: ALPRAZolam 0.5 MG TAB PO PRN (08:23)
[2016-10-16] MEDS: GABAPENTIN 300 MG CAP PO SCH ×2 (08:26→21:35)
[2016-10-16] MEDS ORDERED: ETODOLAC 400 MG TAB PO SCH (11:00)
--- NOTE | 2016-10-16 11:29 | PN ---
DATE OF SERVICE: 10/16/2016 This is a 46-year-old female who was admitted with severe swelling of both lower extremities and also cellulitis involving the right leg and ankle. Patient is known to have morbid obesity and major depression, chronic anemia, hypothyroidism and the patient has been placed back on her previous home medications and started on IV vancomycin. Patient was seen by Dr. Jama in consultation and he is following the patient. The patient was also complaining of some shortness of breath on exertion, possibly due to her obesity, but an echocardiogram from was obtained and this was essentially with regards to cardiac function, ejection fraction is above 15. Nephrology consultation has been requested. Patient is getting Lasix 40 mg p.o. IV b.i.d. and Aldactone 50 mg p.o. b.i.d. We will continue current medications and nephrology consultation is awaited. Prognosis guarded.
--- NOTE | 2016-10-16 14:05 | P.NPCON ---
History of Present Illness - Reason for Consult Consult date: 10/16/16 - Chief Complaint chronic lymphedema - History of Present Illness this is a 46-year-old morbidly obese female with BMI of 72 who is seen because of chronic lymphedema. Patient has had this for years and since March 2016 issues had ulcer around her right ankle. She was admitted now because of the sameand additionally shortness of breath and chest discomfort. At home she is on Lasix40 mg twice a day and Aldactone 50 twice a day but discontinued because of frequency of urination.her medications also have included in the past ibuprofen. Review of systems;no fever chills nausea vomiting diarrhea or abdominal pain. In the hospital she was started on antibiotics. She is known with hypothyroidism on replacement, suffers from crampsand takes Flexeril for this Workup has shownan echocardiogram with normal right ventricular functionwith a pressure of 11.5 mm, moderate concentric left anterior hypertrophy is noted ejection fraction is 50-55%.further a computed tomography scan of the abdomen and pelvis is unremarkable except forsmall. Fact the umbilical hernia, left hemicolonic diverticulosis, mild gallbladder hydrops. There is no evidence of any mass or lymphadenopathy. Past Medical History Past Medical History: Neurologic Disorder, Osteoarthritis (OA) Additional Past Medical History / Comment(s): chronic right leg wounds morbid obesity Last Myocardial Infarction Date:: 1989 History of Any Multi-Drug Resistant Organisms: None Reported Past Surgical History: Section, Tubal Ligation Additional Past Surgical History / Comment(s): colonoscopy Past Anesthesia/Blood Transfusion Reactions: No Reported Reaction Additional Past Anesthesia/Blood Transfusion Reaction / Comment(s): Pt has received blood in the past without reaction, once r/t childbirth and once due to anemia. Past Psychological History: Anxiety Additional Psychological History / Comment(s): Pt states she lives alone. She uses no assistive device. She can drive but does not own a car so she uses a cab or her insurance company for rides. She states her depression is stable at this time and has no suicidal thoughts or plans. She has had several suicide attempts in the past. Smoking Status: Never smoker Past Alcohol Use History: Rare Past Drug Use History: None Reported - Past Family History Father History Unknown: Yes Additional Family Medical History / Comment(s): Pt was adopted and does not know parents/family medical hx. Medications and Allergies Home Medications Medication Instructions Recorded Confirmed Type Cyclobenzaprine [Flexeril] 10 mg PO TID 08/28/14 10/13/16 History Ferrous Sulfate [Iron (65 MG 325 mg PO DAILY 08/28/14 10/13/16 History Elemental)] Gabapentin [Neurontin] 300 mg PO BID 08/28/14 10/13/16 History Potassium Chloride [Klor-Con 20] 20 meq PO BID 04/22/16 10/13/16 History Levothyroxine Sodium [Synthroid] 25 mcg PO DAILY 05/09/16 10/13/16 History Spironolactone 50 mg PO BID 08/10/16 10/13/16 History Allergies Allergy/AdvReac Type Severity Reaction Status Date / Time oxycodone HCl [From Percocet] Allergy Rash/Hives Verified 10/13/16 13:24 procaine HCl [From Novocain] Allergy facial Verified 10/13/16 13:24 swelling Physical Exam Vitals: Vital Signs Temp Pulse Resp BP Pulse Ox 10/16/16 07:00 97.8 F 103 H 20 137/78 96 10/15/16 23:00 97.6 F 99 18 126/64 94 L 10/15/16 14:53 98.4 F 98 22 126/84 95 Intake and Output 10/15/16 10/16/16 10/16/16 22:59 06:59 14:59 Intake Total 500 Balance 500 Intake: Intake, IV Titration 500 Amount Vancomycin 2,500 mg In 500 Sodium Chloride 0.9% 500 ml @ 167 mls/hr IVPB Q12H [facility] Rx#:[id number] Other: # Voids 2 4 on examination she is cheerful and cooperative female. HEENT exam no JVP neck is supple no facial asymmetry no lymph nodes noted. No thyroid goiter noted. Lungs are clear to auscultation percussion good air entry bilaterally Heart sounds are unremarkable for any murmur rub gallop Abdomen is obese difficult to examine with a pendulous abdomen Extremity exam was chronic lymphedema with typical skin changes Neurologically awake alert oriented but generalized weakness Results - Lab Results Most recent lab results Calcium 9.9 mg/dL (8.4-10.2) 10/16/16 05:16 Magnesium 2.1 mg/dL (1.6-2.3) 10/13/16 12:10 10/13/16 12:10 10/16/16 05:16 Assessment and Plan Plan: impression. 1. Chronic lymphedema with history of hypothyroidism, normal renal functionwith creatinine of 0.7 normal electrolytes, urinalys is normal , normal echocardiogram and normal CT of the abdomen and pelvis, good ejection fraction and therefore this chronic lymphedema is explained on the basis of venous insufficiency. 2. Morbid obesity BMI is 72. 3.Hypothyroidism.on replacement. 4. Mild degree of metabolic alkalosis with bicarb of 33 secondary to diuretics Recommendation. 1. Salt restricted diet. 2. because of metabolic alkalosis Reduce Lasix to 20 mg from Lasix 40 twice a day and maintain Aldactone 50 twice a day and watch for orthostatic changes. 2. Avoid nonsteroidals as this might induce salt and fluid retentionMonday therefore hold suggest stopping the Lodine.. 3. Consider bariatric surgery for weight loss. 4. Watch labs
[2016-10-16] MEDS: FUROSEMIDE 20 MG TAB PO SCH (15:37)
[2016-10-16] MEDS: VANCOMYCIN 2,000 MG in SODIUM CHLORIDE 0.9% 500 ML IVPB SCH (21:35)
[2016-10-16] MEDS: DIAZEPAM 5 MG TAB PO SCH (21:35)
[2016-10-17] MEDS: HYDROmorphone 2 MG/ML 1 ML SYRINGE IVP PRN ×4 (01:23→21:25)
[2016-10-17] MEDS: LEVOTHYROXINE 25 MCG TAB PO SCH (06:22)
[2016-10-17] MEDS: POTASSIUM CHLORIDE ER 20 MEQ TAB.ER PO SCH ×2 (08:48→21:01)
[2016-10-17] MEDS: SPIRONOLACTONE 25 MG TAB PO SCH ×2 (08:48→22:13)
[2016-10-17] MEDS: FUROSEMIDE 20 MG TAB PO SCH ×2 (08:48→15:16)
[2016-10-17] MEDS: DICYCLOMINE 10 MG CAP PO SCH ×4 (08:48→21:01)
[2016-10-17] MEDS: FERROUS SULFATE 325 MG TAB PO SCH (08:48)
[2016-10-17] MEDS: GABAPENTIN 300 MG CAP PO SCH ×2 (08:48→21:01)
[2016-10-17] MEDS: VANCOMYCIN 2,000 MG in SODIUM CHLORIDE 0.9% 500 ML IVPB SCH (08:48)
[2016-10-17] MEDS: CYCLOBENZAPRINE 10 MG TAB PO SCH ×3 (08:48→21:01)
[2016-10-17] MEDS: traMADol 50 MG TAB PO SCH ×2 (09:32→21:07)
[2016-10-17 10:34] LABS: Anion Gap 10 mmol/L; Blood Urea Nitrogen 18 mg/dL (7-17); Calcium 9.7 mg/dL (8.4-10.2); Carbon Dioxide 33 mmol/L (22-30); Chloride 96 mmol/L (98-107); Glucose 139 mg/dL (74-99); Non-African American GFR(MDRD) >60 (>60 ml/min/1.73 sqM); Potassium 4.5 mmol/L (3.5-5.1); Sodium 139 mmol/L (137-145)
[2016-10-17] MEDS ORDERED: HYDROmorphone 1 MG/ML 1 ML SYRINGE IVP PRN (12:36)
--- NOTE | 2016-10-17 14:42 | PN ---
DATE OF SERVICE: 10/17/2016 This is a 46-year-old female who is morbidly obese and she was admitted to the hospital with severe edema of the lower extremities and cellulitis of the right leg and the ankle. Patient was started on IV antibiotics, currently she is receiving IV vancomycin. Patient was also seen by Dr. Jama and he is following the patient. Patient is having severe swelling of the both lower extremities and also abdominal wall, partly due to lymphedema and partly due to fluid retention and a Nephrology consultation was requested and he was seen with seen by the sergeant of officers yesterday and he has recommended to continue with Lasix and also Aldactone. Patient's cellulitis seems to be improving and will make discharge plan and discharge her ( ) if it is okay with Dr. Jama. Prognosis is guarded.
[2016-10-17] MEDS: DIAZEPAM 5 MG TAB PO SCH (21:07)
[2016-10-17] MEDS: CEPHALEXIN 500 MG CAP PO SCH (21:08)
[2016-10-18] MEDS: HYDROmorphone 2 MG/ML 1 ML SYRINGE IVP PRN ×3 (04:34→20:16)
[2016-10-18] MEDS: LEVOTHYROXINE 25 MCG TAB PO SCH (06:29)
[2016-10-18] MEDS: CEPHALEXIN 500 MG CAP PO SCH ×3 (08:02→21:02)
[2016-10-18] MEDS: FERROUS SULFATE 325 MG TAB PO SCH (08:02)
[2016-10-18] MEDS: CYCLOBENZAPRINE 10 MG TAB PO SCH ×3 (08:02→21:02)
[2016-10-18] MEDS: DICYCLOMINE 10 MG CAP PO SCH ×4 (08:02→21:02)
[2016-10-18] MEDS: GABAPENTIN 300 MG CAP PO SCH ×2 (08:03→21:02)
[2016-10-18] MEDS: traMADol 50 MG TAB PO SCH ×2 (08:03→21:01)
[2016-10-18] MEDS: POTASSIUM CHLORIDE ER 20 MEQ TAB.ER PO SCH ×2 (08:03→21:02)
[2016-10-18] MEDS: SPIRONOLACTONE 25 MG TAB PO SCH ×2 (08:03→21:02)
[2016-10-18] MEDS: FUROSEMIDE 20 MG TAB PO SCH ×2 (08:03→15:10)
--- NOTE | 2016-10-18 08:05 | PN ---
DATE OF SERVICE: 10/17/2016 Reason for followup is right posterior leg wounds with cellulitis. INTERVAL HISTORY: The patient is afebrile. She is currently breathing comfortably. Denies significant chest pain or cough or new pain in the right leg area. On examination, blood pressure is 132/74 with a pulse of 107, temperature 98.1. She is 98% on room air. General description is a middle-age female, lying in bed in no distress. RESPIRATORY SYSTEM: Unlabored breathing. Clear to auscultation anteriorly. HEART: S1, S2, regular rate and rhythm. ABDOMEN: Soft. No tenderness. Right posterior leg wound shows overall improvement of cellulitis, the redness has improved. No drainage. LABS: Hemoglobin is 10.2, a white count of 10 with a BUN of 18, creatinine 1.0. Blood culture has been negative. DIAGNOSTIC IMPRESSION AND PLAN: Patient with right posterior leg wound with secondary cellulitis. Clinically doubt methicillin-resistant Staphylococcus aureus infection. At this time, will discontinue the vancomycin, give the patient oral Keflex, local wound care with the Aquacel Silver along with a Edgar wrap to keep the swelling down. Continue supportive care.
[2016-10-18 09:06] LABS: Anion Gap 9 mmol/L; Blood Urea Nitrogen 19 mg/dL (7-17); Calcium 9.5 mg/dL (8.4-10.2); Carbon Dioxide 33 mmol/L (22-30); Chloride 97 mmol/L (98-107); Glucose 145 mg/dL (74-99); Non-African American GFR(MDRD) >60 (>60 ml/min/1.73 sqM); Potassium 4.4 mmol/L (3.5-5.1); Sodium 139 mmol/L (137-145)
--- NOTE | 2016-10-18 18:15 | PN ---
DATE OF SERVICE: 10/18/2016 This is a 46-year-old female who is morbidly obese. She was admitted with marked edema of the abdominal wall and lower extremities. She also had cellulitis of the right leg. Patient was started on IV Lasix and placed back on her previous medications. She was started on IV vancomycin and seen by Dr. Jama in consultation. Her wound is getting better and cellulitis has improved. The IV vancomycin has been discontinued. The patient has been started on Keflex. However, she is obese and she still has a lot of edema of the extremities. She has some lymphedema involving the abdominal wall and the legs. A CT of the abdomen and pelvis was essentially negative. She was also seen by the director microbiology in consultation. However, it is extremely difficult for her to get up from the bed and move around because of the obesity and stiffness and edema of the lower extremities. Will have Lpn Cma see the patient and make discharge arrangements for possible transfer to a rehab unit. Will also have a bariatric surgeon see the patient in consultation. Overall prognosis is guarded.
[2016-10-18] MEDS: DIAZEPAM 5 MG TAB PO SCH (21:02)
--- NOTE | 2016-10-18 21:02 | P.PN ---
Progress Note - Text Please see full dictated consultation. Patient reports being well over 400+ pounds. Her personal goal is to get down to 200+ pounds. She has difficulty with ambulation secondary to severity of lymphedema and chronic infections. Bariatric surgery options were reviewed. She was advised to follow-up for seminar upon discharge. We'll have bariatric dietitian come by with recommendations on dietary intake. In the interim, recommend high protein low carbohydrate diet. Thank you for this kind consultation.
--- NOTE | 2016-10-18 22:42 | PN ---
DATE OF SERVICE: 10/18/2016 REASON FOR FOLLOWUP: Right leg wound. INTERVAL HISTORY: The patient is afebrile. He is currently breathing comfortably. He denies having any chest pain or cough. No abdominal pain. some dull pain in the right leg area. On examination, blood pressure 136/96 with a pulse of 109, temperature 99. She is 93% on room air. General description is a middle-aged female, lying in bed in no distress. RESPIRATORY SYSTEM: Unlabored breathing. Clear to auscultation anteriorly. HEART: S1, S2. Regular rate and rhythm. ABDOMEN: Soft. No tenderness. RIGHT LEG: wound with dressing and Edgar wrap. No drainage on the dressing. LABS: BUN of 19 with creatinine of 0.97. Blood culture negative. DIAGNOSTIC IMPRESSION AND PLAN: Patient with a right lower extremity wound with secondary cellulitis. Underlying infection is currently being treated with oral Keflex, as no resistant organism has been grown. Local wound care with Aquacel Silver and an Edgar wrap to keep the swelling down. Continue supportive care. [facility]
[2016-10-19] MEDS: HYDROmorphone 2 MG/ML 1 ML SYRINGE IVP PRN (02:14)
[2016-10-19] MEDS: LEVOTHYROXINE 25 MCG TAB PO SCH (06:29)
[2016-10-19 09:34] LABS: Anion Gap 9 mmol/L; Blood Urea Nitrogen 20 mg/dL (7-17); Calcium 9.4 mg/dL (8.4-10.2); Carbon Dioxide 33 mmol/L (22-30); Chloride 97 mmol/L (98-107); Glucose 105 mg/dL (74-99); Non-African American GFR(MDRD) >60 (>60 ml/min/1.73 sqM); Potassium 4.8 mmol/L (3.5-5.1); Sodium 139 mmol/L (137-145)
--- NOTE | 2016-10-19 09:59 | PN ---
Patient is seen for followup for chronic lower extremity edema which is secondary to chronic lymphedema in a patient with history of hypothyroidism and obesity. She is currently maintained on Lasix 20 mg p.o. b.i.d. There is no evidence of proteinuria. On examination, blood pressure is 147/87, heart rate 112 per minute. She is afebrile. Examination of the heart, S1 and S2. Examination of lungs, bilateral breath sounds are heard. Decreased breath sounds in the bases. Abdomen is soft, morbidly obese. Examination of lower extremities shows chronic skin changes, chronic bilateral lower extremity edema, mainly lymphedema. Labs show sodium 139, potassium 4.4, serum creatinine 0.97. UA completely benign. Vancomycin level 22.5. ASSESSMENT: Bilateral lower extremity edema, mainly lymphedema, currently ready chronic. May continue with the current dose of Lasix. Patient should be maintained on some degree of diuretics when she is discharged. She is advised to avoid high salt-containing foods which will worsen the edema. There is a lymphedema clinical out of town which may be an option if patient wants to try visiting the center.
[2016-10-19] MEDS: traMADol 50 MG TAB PO SCH ×2 (11:21→21:54)
[2016-10-19] MEDS: GABAPENTIN 300 MG CAP PO SCH ×2 (11:22→21:54)
[2016-10-19] MEDS: DICYCLOMINE 10 MG CAP PO SCH ×4 (11:22→21:54)
[2016-10-19] MEDS: CYCLOBENZAPRINE 10 MG TAB PO SCH ×3 (11:22→21:54)
[2016-10-19] MEDS: FERROUS SULFATE 325 MG TAB PO SCH (11:22)
[2016-10-19] MEDS: SPIRONOLACTONE 25 MG TAB PO SCH ×2 (11:22→21:54)
[2016-10-19] MEDS: POTASSIUM CHLORIDE ER 20 MEQ TAB.ER PO SCH ×2 (11:22→21:54)
[2016-10-19] MEDS: FUROSEMIDE 20 MG TAB PO SCH ×2 (11:23→15:09)
[2016-10-19] MEDS: CEPHALEXIN 500 MG CAP PO SCH ×3 (11:23→21:54)
[2016-10-19] MEDS: HYDROcodone/APAP 10-325MG 1 EACH TAB PO PRN ×2 (15:11→21:53)
--- NOTE | 2016-10-19 15:16 | PN ---
DATE OF SERVICE: 10/19/2016 Reason for followup is right lower extremity wound. INTERVAL HISTORY: The patient is afebrile, has been breathing comfortably. Denies significant chest pain or cough. No pain in the right leg area. On examination, blood pressure 127/78, pulse of 108, temperature 98.5, she is 95% on room air. General description is a middle-age female, lying in bed in no distress. RESPIRATORY SYSTEM: Unlabored breathing. Clear to auscultation anteriorly. HEART: S1, S2 regular rate and rhythm. Right lower extremity wound has decreased in size. No cellulitis. Labs with a BUN of 20, with a creatinine 0.99. DIAGNOSTIC IMPRESSION AND PLAN: Patient with right lower extremity wound with secondary cellulitis. Recommend local wound care with Aquacel Silver dressing followed by an Edgar wrap and oral Keflex for another week with outpatient followup.
--- NOTE | 2016-10-19 17:33 | PN ---
DATE OF SERVICE: 10/19/2016 This 46-year-old female was admitted with severe marked edema and lymphedema of both lower extremities and also with cellulitis involving the right leg. Patient was started on IV antibiotics, initially vancomycin, and she was seen by Dr. Jama in consultation. Patient also was placed back on her previous home medications. Her cellulitis improved but she still has persistent severe edema of the lower extremities. She also has some lymphedema involving the abdominal wall. She had a CT scan of the abdomen which did not show any acute changes. Patient was also seen by the instrument and control technician, who found that her kidney function is normal. She will continue the diuretics. She was advised to reduce her weight. We also consulted bariatric surgeon Dr. Suarez, and she recommended that the patient follow up with bariatric seminars and start reducing her weight. She can follow up with the bariatric clinic. Patient is not able to live alone because of an inability to move around. Medical Dosimetrist has seen her and they are making arrangements for her to be transferred to [facility] rehab unit. Her IV is out, so we will place her on oral pain medication. She will be given Canjilon 10/325 one or two q.4 to 6 hours p.r.n. pain. She was also seen by Dr. Jama in consultation, and he has placed her on Keflex. The vancomycin has been discontinued. She will be transferred to [facility] rehab unit as soon as arrangements are made. Overall prognosis is guarded.
--- NOTE | 2016-10-19 18:06 | P.PN ---
Subjective Principal diagnosis: Morbid obesity The patient is a 46-year-old female with a body mass index over 70+. She had been seen by the bariatric dietitian with dietary orders advised. In the interim, she's being treated for bilateral lower extremity edema with infection. No reports of abdominal pain. Objective - Vital Signs Vital signs: Vital Signs Temp 97.7 F 10/19/16 15:00 Pulse 111 H 10/19/16 15:00 Resp 22 10/19/16 15:00 BP 168/91 10/19/16 15:00 Pulse Ox 97 10/19/16 15:00 Intake & Output 10/18/16 10/19/16 10/19/16 18:59 06:59 18:59 Intake Total 240 1060 780 Balance 240 1060 780 Weight 196.5 kg Intake: Oral 240 1060 780 Other: Voiding Method Bedside Commode Bedside Commode # Voids 1 2 1 # Bowel Movements 1 1 - Exam GENERAL: Well developed and in no acute distress. Pleasant. HEENT: No sclera icterus. Extraocular movements grossly intact. Moist buccal mucosa. Head is atraumatic, normocephalic. Hears conversational speech. No nasal drainage. NECK: Supple without lymphadenopathy. No JV distention. CHEST: Non-labored respirations and equal bilateral excursions. CARDIOVASCULAR: Regular rate and rhythm. Palpable 2+ radial pulses. ABDOMEN: Soft, nontender. Nondistended. MUSCULOSKELETAL: No clubbing, cyanosis. Moderate severe lymphedema over 3+ of the lower extremities. NEUROLOGIC: No focal or lateralizing signs. PSYCH: Appropriate affect. Alert and oriented to person, place and time. - Labs CBC & Chem 7: 10/13/16 12:10 10/19/16 08:25 Labs: Abnormal Lab Results - Last 24 Hours (Table) 10/19/16 Range/Units 08:25 Chloride 97 L (98-107) mmol/L Carbon Dioxide 33 H (22-30) mmol/L BUN 20 H (7-17) mg/dL Glucose 105 H (74-99) mg/dL Assessment and Plan (1) BMI 70 and over, adult Status: Acute (2) Morbid obesity with BMI of 70 and over, adult Status: Acute (3) Cellulitis of right lower extremity Status: Acute Plan: 1. Continue with high protein low carb diet. 2. No surgical intervention indicated at this time. 3. Patient may follow up as an outpatient the bariatric center. 4. All questions were answered regarding bariatric care including the bariatric pathway. Thank you for this kind consultation. Will follow as needed.
[2016-10-19] MEDS: DIAZEPAM 5 MG TAB PO SCH (21:54)
[2016-10-20] MEDS: LEVOTHYROXINE 25 MCG TAB PO SCH (06:53)
[2016-10-20] MEDS: HYDROcodone/APAP 10-325MG 1 EACH TAB PO PRN ×2 (06:56→15:17)
[2016-10-20 09:14] LABS: Anion Gap 11 mmol/L; Blood Urea Nitrogen 23 mg/dL (7-17); Calcium 9.6 mg/dL (8.4-10.2); Carbon Dioxide 31 mmol/L (22-30); Chloride 97 mmol/L (98-107); Glucose 121 mg/dL (74-99); Non-African American GFR(MDRD) >60 (>60 ml/min/1.73 sqM); Potassium 4.3 mmol/L (3.5-5.1); Sodium 139 mmol/L (137-145)
[2016-10-20] MEDS: CYCLOBENZAPRINE 10 MG TAB PO SCH ×2 (09:26→14:47)
[2016-10-20] MEDS: FUROSEMIDE 20 MG TAB PO SCH ×2 (09:26→14:47)
[2016-10-20] MEDS: FERROUS SULFATE 325 MG TAB PO SCH (09:26)
[2016-10-20] MEDS: GABAPENTIN 300 MG CAP PO SCH (09:26)
[2016-10-20] MEDS: DICYCLOMINE 10 MG CAP PO SCH ×2 (09:26→14:47)
[2016-10-20] MEDS: traMADol 50 MG TAB PO SCH (09:26)
[2016-10-20] MEDS: POTASSIUM CHLORIDE ER 20 MEQ TAB.ER PO SCH (09:26)
[2016-10-20] MEDS: CEPHALEXIN 500 MG CAP PO SCH ×2 (09:27→14:47)
[2016-10-20] MEDS: SPIRONOLACTONE 25 MG TAB PO SCH (09:27)
--- NOTE | 2016-10-20 13:13 | DS ---
DATE OF ADMISSION: 10/16/2016 DATE OF DISCHARGE: 10/20/2016 DISCHARGE DIAGNOSES: 1. Cellulitis left lower extremity. 2. Morbid obesity. 3. Severe edema and swelling of the lower extremities bilaterally. 4. Lymphedema involving abdominal wall and lower extremities. 5. Hypothyroidism. 6. Anemia due to chronic disease. 7. Chronic low back pain. 8. History of mental depression. This is a 46-year-old female who has a long-standing history of chronic illness related to her morbid obesity. She has been in the hospital with severe swelling and edema of the lower extremities and inability to move around because of the pain and swelling of both lower extremities and also there is a history of low back pain. She had been in the hospital with similar symptoms in the past. She was having these symptoms for the past couple of weeks and it was progressively getting worse and also she noticed skin infection in the right leg and she was not able to move around and walk and she came to the emergency room. She was found to have cellulitis involving the right lower extremity and also she had a marked edema of the legs and the abdominal wall. The patient was admitted to the hospital for further evaluation and treatment. For details of the physical examination at the time of admission, please refer to the ( ). HOSPITAL COURSE: Patient was started on IV antibiotics, initially started on vancomycin. Patient was placed back on her previous medications and was also given IV Lasix. Patient was seen by Dr. Jama in consultation and patient was continued on IV antibiotics and spironolactone and there was no significant improvement and Nephrology consultation was obtained and Nephrology recommended continuing the same medications and patient continued to have difficulty in walking and Dr. Jama continued on vancomycin and also gave some Aquacel Silver dressing. Her infection started improving but still she was not ready to be going home because she is not able to walk or move around, so Social Service saw the patient and now she is going to be transferred to [facility] and she also was given physical therapy. Patient was also seen by Dr. Suarez for evaluation about bariatric surgery and she recommended her to follow with the Bariatric Clinic. Patient is going to be discharged today and transferred to [facility]. She will continue on her physical therapy and occupational therapy and also the wound dressing as recommended by Dr. Jama and she will continue on Keflex 500 mg p.o. t.i.d. for 12 days and she will also continue with the current medications, Flexeril 10 mg p.o. t.i.d., Valium 5 mg p.o. daily at bedtime and Bentyl 10 mg p.o. q.i.d., ferrous sulfate 325 mg p.o. daily, Lasix 20 mg p.o. b.i.d., gabapentin 300 mg p.o. b.i.d., Synthroid 25 mcg p.o. daily, potassium chloride 20 mEq p.o. b.i.d., spironolactone 50 mg p.o. b.i.d., Ultram 50 mg p.o. b.i.d. and Ferron 10/325 one q.4 to 6 hours p.r.n. for pain, Xanax 0.5 mg p.o. b.i.d. p.r.n. for anxiety. CBC and CMP will be checked in 1 week and she will be followed by me in [facility] for her medical problems.
[2016-10-20 15:36] VITALS: BP 120/93; PULSE 121; RESP 18; TEMP 97.9
--- NOTE | 2016-10-20 17:50 | PN ---
DATE OF SERVICE: 10/20/2016 REASON FOR FOLLOWUP: Right lower extremity wound and cellulitis. INTERVAL HISTORY: The patient is afebrile. She is currently breathing comfortably. Denies significant chest pain or cough. No pain in the right leg area or any drainage. On examination, blood pressure is 131/73 with a pulse of 111, temperature 98.7. She is 96% on room air. General description is a middle-aged female lying in bed in no distress. RESPIRATORY SYSTEM: Unlabored breathing. Clear to auscultation anteriorly. HEART: S1, S2. Regular rate and rhythm. ABDOMEN: Soft. No tenderness. RIGHT LEG: Wound is currently dressed up. No obvious drainage on the dressing. LABS: BUN of 23 with a creatinine 0.96. DIAGNOSTIC IMPRESSION AND PLAN: Patient with right lower extremity wound with secondary cellulitis, clinically responding to Keflex. That will be continued along with Aquacel Silver dressing to the wound and Edgar wrap. Follow up in the office in about a week. Continue supportive care.
== END 2016-10-20 16:05 | DRG 603 ==
LOC: EC 11:13 → 4MS4W 15:06 → OBSVTOIN 10-16 15:03
PROVIDERS: ADMIT Internal Medicine; ATTEND Internal Medicine
DX: L03.115 Cellulitis of right lower limb (principal); E87.3 Alkalosis; K82.1 Hydrops of gallbladder; L97.319 Non-pressure chronic ulcer of right ankle with unspecified severity; E66.01 Morbid (severe) obesity due to excess calories; E03.9 Hypothyroidism, unspecified; D63.8 Anemia in other chronic diseases classified elsewhere; F32.9 Major depressive disorder, single episode, unspecified; G89.29 Other chronic pain; I25.2 Old myocardial infarction; I89.0 Lymphedema, not elsewhere classified; K42.9 Umbilical hernia without obstruction or gangrene; K57.90 Diverticulosis of intestine, part unspecified, without perforation or abscess without bleeding; F41.9 Anxiety disorder, unspecified; M19.90 Unspecified osteoarthritis, unspecified site; M54.5 Low back pain; Z68.45 Body mass index [BMI] 70 or greater, adult; Z79.899 Other long term (current) drug therapy; Z87.891 Personal history of nicotine dependence; Z88.6 Allergy status to analgesic agent; Z88.5 Allergy status to narcotic agent; Z88.8 Allergy status to other drugs, medicaments and biological substances
CPT/HCPCS: 36415; 71020; 74177; 80048; 80053; 80202; 81001; 82550; 82553; 83735; 83880; 84484; 85025; 85610; 85730; 87040; 93005; 93306; 93970; 96365; 96366; 96374; 96375; 96376; 99285

== ENCOUNTER 2017-04-12 17:27 | Inpatient (IN) | payer MEDICARE, OTHER ==
--- NOTE | 2017-04-12 18:26 | ED ---
Fall HPI - General Chief Complaint: Fall Stated Complaint: fall/severe pain Time Seen by Provider: 04/12/17 17:40 Source: patient Mode of arrival: wheelchair - History of Present Illness Initial Comments: Pt presents following a fall that occured midday yesterday at home in her bathroom. patient states she stood up from the toilet and bent over to wipe herself, when she lost her balance and fell, patient states she hit her low back on the toilet. Patient denies blood thinner use. Patient denies head trauma. Patient denies loss of consciousness. Patient denies preceding symptoms. Patient states that today she has had pain in her tailbone and low back, has had difficulty walking. Patient states she always has some difficulty walking because of the lymphedema in her legs. Patient states she has some bilateral pains across her lower chest when she exerts herself which is a chronic problem for her. Patient states she gets short of breath with exertion which is also chronic problem for her. She states she is on 2 diuretic pills for lower extremity swelling. Patient states her chronic symptoms are baseline, however she is concerned she may have injured herself from her fall, and would like x-rays of her back. patient states that because she has "large" it took her approximately 30 minutes to get up off the floor yesterday. MD Complaint: fall - Related Data Home Medications Medication Instructions Recorded Confirmed Ferrous Sulfate [Iron (65 MG 325 mg PO DAILY 08/28/14 04/12/17 Elemental)] Gabapentin [Neurontin] 300 mg PO BID 08/28/14 04/12/17 Potassium Chloride [Klor-Con 20] 20 meq PO BID 04/22/16 04/12/17 Levothyroxine Sodium [Synthroid] 25 mcg PO DAILY 05/09/16 04/12/17 Spironolactone 50 mg PO BID 08/10/16 04/12/17 HYDROcodone/APAP 10-325MG [[place] 1 tab PO Q6H PRN 04/12/17 04/12/17 10-325] Previous Rx's Medication Instructions Recorded ALPRAZolam [Xanax] 0.5 mg PO BID PRN #60 tablet 10/20/16 Diazepam [Valium] 5 mg PO HS #30 tab 10/20/16 Furosemide [Lasix] 20 mg PO BID@0900,1600 tab 10/20/16 Allergies Allergy/AdvReac Type Severity Reaction Status Date / Time oxycodone HCl [From Percocet] Allergy Rash/Hives Verified 04/12/17 18:51 procaine HCl [From Novocain] Allergy facial Verified 04/12/17 18:51 swelling Review of Systems ROS Statement: Those systems with pertinent positive or pertinent negative responses have been documented in the HPI. ROS Other: All systems not noted in ROS Statement are negative. Constitutional: Denies: fever, chills, weakness Eyes: Denies: vision change ENT: Denies: ear pain Respiratory: Reports: dyspnea. Denies: cough Cardiovascular: Reports: chest pain, dyspnea on exertion, edema (chronic). Denies: palpitations, syncope Endocrine: Denies: fatigue Gastrointestinal: Denies: abdominal pain, nausea, vomiting, diarrhea, constipation Genitourinary: Denies: urgency, dysuria, frequency Musculoskeletal: Reports: back pain, arthralgia. Denies: joint swelling, myalgia Skin: Reports: other (No skin wounds/bruising/hematomas). Denies: rash, lesions Neurological: Denies: headache, weakness, numbness, confusion Hematological/Lymphatic: Denies: easy bleeding, easy bruising Past Medical History Past Medical History: Neurologic Disorder, Osteoarthritis (OA) Additional Past Medical History / Comment(s): chronic right leg wounds morbid obesity Last Myocardial Infarction Date:: 1989 History of Any Multi-Drug Resistant Organisms: None Reported Past Surgical History: Section, Tubal Ligation Additional Past Surgical History / Comment(s): colonoscopy Past Anesthesia/Blood Transfusion Reactions: No Reported Reaction Additional Past Anesthesia/Blood Transfusion Reaction / Comment(s): Pt has received blood in the past without reaction, once r/t childbirth and once due to anemia. Past Psychological History: Anxiety Smoking Status: Never smoker Past Alcohol Use History: Rare Past Drug Use History: None Reported - Past Family History Father History Unknown: Yes Additional Family Medical History / Comment(s): Pt was adopted and does not know parents/family medical hx. General Exam - General Exam Comments Initial Comments: sitting up in bed. No acute distress. Does not appear in pain. Conversing normally. Morbidly obese. Limitations: no limitations General appearance: alert, in no apparent distress Head exam: Present: atraumatic, normocephalic, other (no signs of head trauma) Eye exam: Present: PERRL, EOMI ENT exam: Present: normal exam, mucous membranes moist Neck exam: Present: normal inspection, full ROM. Absent: tenderness Respiratory exam: Present: normal lung sounds bilaterally. Absent: respiratory distress, wheezes, rales, rhonchi, stridor, chest wall tenderness Cardiovascular Exam: Present: regular rate, normal rhythm GI/Abdominal exam: Present: soft, other (obese). Absent: tenderness, guarding, rebound Extremities exam: Present: other (pitting edema to the lower extremities bilaterally. Decreased range of motion LEs due to body habitus. no bony tenderness or joint edema appreciated. No vertebral tenderness or step-offs appreciated.) Back exam: Absent: tenderness, vertebral tenderness Neurological exam: Present: alert, oriented X3, CN II-XII intact, other (muscle strength 5 out of 5 extremities bilaterally. Sensation intact in extremities bilaterally.). Absent: motor sensory deficit Psychiatric exam: Present: normal affect, normal mood Skin exam: Present: warm, dry, other (patient appears to have dried cracked skin likely from venous stasis of lower extremities bilaterally.) Course Vital Signs 04/12/17 04/12/17 04/12/17 17:35 19:49 22:10 Temperature 98.1 F 98.4 F Pulse Rate 105 H 104 H Respiratory 20 20 20 Rate Blood Pressure 184/105 186/86 O2 Sat by Pulse 99 100 Oximetry 04/12/17 22:50 Temperature 98.4 F Pulse Rate 121 H Respiratory 20 Rate Blood Pressure O2 Sat by Pulse 100 Oximetry Medical Decision Making - Medical Decision Making x-rays of the chest, pelvis, lumbar spine negative for acute fractures. EKG normal sinus rhythm, heart rate 93, no ST or T-wave changes appreciated. Occultly obtaining blood work, 3 attempts by ER staff unsuccessful. Anesthesia was paged to assist in obtaining blood work. 21:39 Labs obtained. Pt assessed, sleeping soundly. hemoglobin 9, previous 11. Patient updated with all results. Patient states she has a history of anemia in the Figure out why. Patient admits she has required transfusions in the past. Patient states she feels too weak to go home. patient now states that she felt lightheaded prior to falling in the bathroom, and is concerned that they could happen again. Patient states she does not think she'll really get herself out of the car or to the bathroom at night despite living with her daughter who would be unable to help her because "i weight 400lbs". Plan for observation for symptomatically anemia. spoke with patient's primary care physician Dr. Vásquez, up to patient condition results, he agrees with observation. Agrees with consult to PT/OT. Patient updated with the results and plan. Neuro checks ordered. We'll admit for observation of this time. - Lab Data Result diagrams: 04/12/17 09:25 04/12/17 09:25 Lab Results 04/12/17 04/12/17 04/12/17 Range/Units 09:25 09:25 09:25 WBC 10.4 (3.8-10.6) k/uL RBC 3.44 L (3.80-5.40) m/uL Hgb 9.1 L (11.4-16.0) gm/dL Hct 29.0 L (34.0-46.0) % MCV 84.4 (80.0-100.0) fL MCH 26.5 (25.0-35.0) pg MCHC 31.4 (31.0-37.0) g/dL RDW 15.5 (11.5-15.5) % Plt Count 415 (150-450) k/uL Neutrophils % 68 % Lymphocytes % 23 % Monocytes % 5 % Eosinophils % 3 % Basophils % 0 % Neutrophils # 7.1 (1.3-7.7) k/uL Lymphocytes # 2.4 (1.0-4.8) k/uL Monocytes # 0.5 (0-1.0) k/uL Eosinophils # 0.3 (0-0.7) k/uL Basophils # 0.0 (0-0.2) k/uL Hypochromasia Slight Sodium 138 (137-145) mmol/L Potassium 4.5 (3.5-5.1) mmol/L Chloride 105 (98-107) mmol/L Carbon Dioxide 26 (22-30) mmol/L Anion Gap 7 mmol/L BUN 5 L (7-17) mg/dL Creatinine 0.74 (0.52-1.04) mg/dL Est GFR (MDRD) Af Amer >60 (>60 ml/min/1.73 sqM) Est GFR (MDRD) Non-Af >60 (>60 ml/min/1.73 sqM) Glucose 100 H (74-99) mg/dL Calcium 8.4 (8.4-10.2) mg/dL Creatine Kinase 156 H (30-135) U/L Troponin I <0.012 (0.000-0.034) ng/mL NT-Pro-B Natriuret Pep pg/mL 04/12/ Range/Units 09:25 WBC (3.8-10.6) k/uL RBC (3.80-5.40) m/uL Hgb (11.4-16.0) gm/dL Hct (34.0-46.0) % MCV (80.0-100.0) fL MCH (25.0-35.0) pg MCHC (31.0-37.0) g/dL RDW (11.5-15.5) % Plt Count (150-450) k/uL Neutrophils % % Lymphocytes % % Monocytes % % Eosinophils % % Basophils % % Neutrophils # (1.3-7.7) k/uL Lymphocytes # (1.0-4.8) k/uL Monocytes # (0-1.0) k/uL Eosinophils # (0-0.7) k/uL Basophils # (0-0.2) k/uL Hypochromasia Sodium (137-145) mmol/L Potassium (3.5-5.1) mmol/L Chloride (98-107) mmol/L Carbon Dioxide (22-30) mmol/L Anion Gap mmol/L BUN (7-17) mg/dL Creatinine (0.52-1.04) mg/dL Est GFR (MDRD) Af Amer (>60 ml/min/1.73 sqM) Est GFR (MDRD) Non-Af (>60 ml/min/1.73 sqM) Glucose (74-99) mg/dL Calcium (8.4-10.2) mg/dL Creatine Kinase (30-135) U/L Troponin I (0.000-0.034) ng/mL NT-Pro-B Natriuret Pep 51 pg/mL Disposition Clinical Impression: Symptomatic anemia, Fall Disposition: ADMITTED IP TO THIS [facility] Condition: Good Referrals: Pablito Vásquez MD [Primary Care Provider] - 1-2 days
--- NOTE | 2017-04-12 20:00 | XR ---
EXAMINATION TYPE: XR chest 1V DATE OF EXAM: 04/12/2017 COMPARISON: 10/13/2016 HISTORY: Pain TECHNIQUE: Single frontal view of the chest is obtained. FINDINGS: There is no heart failure nor confluent pneumonic infiltrate. Costophrenic angles are nehemias r. Exam is limited by the patient size. IMPRESSION: No active cardiopulmonary disease. No change.
--- NOTE | 2017-04-12 20:04 | XR ---
EXAMINATION TYPE: XR pelvis AP view DATE OF EXAM: 04/12/2017 COMPARISON: NONE HISTORY: Pain TECHNIQUE: Single view FINDINGS: Pelvic ring is intact. Proximal femurs are intact. The acetabula show hypertrophic spurring . Sacroiliac joints appear normal. IMPRESSION: Hypertrophic osteoarthritis. No fracture.
--- NOTE | 2017-04-12 20:40 | XR ---
EXAMINATION TYPE: XR lumbar spine 2 or 3V DATE OF EXAM: 04/12/2017 COMPARISON: 08/11/2016 HISTORY: Back pain TECHNIQUE: 3 views FINDINGS: Vertebra have normal alignment. There is anterior bridging osteophyte formation from L4 to L1. Posterior elements are intact. Sacroiliac joints appear normal. This spaces are fairly normal. IMPRESSION: Hypertrophic spurring. No fracture. There is increased spurring compared to old exam.
[2017-04-12 21:52] LABS: Anion Gap 7 mmol/L; Basophils % (A) 0 %; Blood Urea Nitrogen 5 mg/dL (7-17); CH 26.9; Calcium 8.4 mg/dL (8.4-10.2); Carbon Dioxide 26 mmol/L (22-30); Chloride 105 mmol/L (98-107); Creatine Kinase 156 U/L (30-135); Eosinophils # (A) 0.3 k/uL (0-0.7); Eosinophils % (A) 3 %; Glucose 100 mg/dL (74-99); HDW 2.71; HGB 9.1 gm/dL (11.4-16.0); Hypochromasia Slight; Luc # (Auto) 0.12; Luc % (Auto) 1; Lymphocytes # (A) 2.4 k/uL (1.0-4.8); Lymphocytes % (A) 23 %; MCH 26.5 pg (25.0-35.0); MCHC 31.4 g/dL (31.0-37.0); MCV 84.4 fL (80.0-100.0); Mean Platelet Volume 6.8; Monocytes # (A) 0.5 k/uL (0-1.0); Monocytes % (A) 5 %; Neutrophils # (A) 7.1 k/uL (1.3-7.7); Neutrophils % (A) 68 %; Non-African American GFR(MDRD) >60 (>60 ml/min/1.73 sqM); RBC 3.44 m/uL (3.80-5.40); RDW 15.5 % (11.5-15.5); Sodium 138 mmol/L (137-145); WBC 10.4 k/uL (3.8-10.6); WBC (Perox) 10.59
[2017-04-12 21:53] LABS: Potassium 4.5 mmol/L (3.5-5.1)
[2017-04-12] MEDS ORDERED: ACETAMINOPHEN TAB 500 MG TAB PO STA (23:53)
[2017-04-13] MEDS: HYDROcodone/APAP 10-325MG 1 EACH TAB PO PRN ×3 (02:02→14:15)
[2017-04-13] MEDS: ALPRAZolam 0.5 MG TAB PO PRN ×2 (02:05→15:15)
[2017-04-13] MEDS: POTASSIUM CHLORIDE ER 20 MEQ TAB.ER PO SCH ×2 (08:00→21:09)
[2017-04-13] MEDS: SPIRONOLACTONE 25 MG TAB PO SCH ×2 (08:00→21:09)
[2017-04-13] MEDS: LEVOTHYROXINE 25 MCG TAB PO SCH (08:00)
[2017-04-13] MEDS: FUROSEMIDE 20 MG TAB PO SCH ×2 (08:00→15:15)
[2017-04-13] MEDS: FERROUS SULFATE 325 MG TAB PO SCH (08:00)
[2017-04-13] MEDS: GABAPENTIN 300 MG CAP PO SCH ×2 (08:00→21:09)
[2017-04-13 08:53] LABS: Basophils % (A) 0 %; CH 26.8; CHCM 30.6; Eosinophils # (A) 0.3 k/uL (0-0.7); Eosinophils % (A) 2 %; HCT 30.2 % (34.0-46.0); HDW 2.51; HGB 9.1 gm/dL (11.4-16.0); Hypochromasia Moderate; Luc % (Auto) 1; Lymphocytes # (A) 2.8 k/uL (1.0-4.8); Lymphocytes % (A) 24 %; MCH 26.4 pg (25.0-35.0); MCHC 30.1 g/dL (31.0-37.0); MCV 87.9 fL (80.0-100.0); Mean Platelet Volume 6.4; Monocytes # (A) 0.3 k/uL (0-1.0); Monocytes % (A) 2 %; Neutrophils # (A) 8.5 k/uL (1.3-7.7); Neutrophils % (A) 71 %; RBC 3.43 m/uL (3.80-5.40); RDW 15.3 % (11.5-15.5); WBC 12.1 k/uL (3.8-10.6); WBC (Perox) 12.13
[2017-04-13 09:24] LABS: Anion Gap 9 mmol/L; Blood Urea Nitrogen 6 mg/dL (7-17); Calcium 8.5 mg/dL (8.4-10.2); Carbon Dioxide 29 mmol/L (22-30); Chloride 104 mmol/L (98-107); Glucose 149 mg/dL (74-99); Non-African American GFR(MDRD) >60 (>60 ml/min/1.73 sqM); Potassium 3.9 mmol/L (3.5-5.1); Sodium 142 mmol/L (137-145)
--- NOTE | 2017-04-13 09:59 | US ---
EXAMINATION TYPE: US venous doppler duplex LE DATE OF EXAM: 04/13/2017 7:38 AM COMPARISON: US 10/13/2016 CLINICAL HISTORY: Leg pain/Swelling. Extremely difficult exam due to patient body habitus SIDE PERFORMED: Bilateral TECHNIQUE: The lower extremity deep venous system is examined utilizing real time linear array sonog ariel with graded compression, doppler sonography and color-flow sonography. VESSELS IMAGED: External Iliac Vein (EIV) Common Femoral Vein Deep Femoral Vein Greater Saphenous Vein * Femoral Vein Popliteal Vein Small Saphenous Vein * Proximal Calf Veins (* superficial vessels) Right Leg: Appears negative for DVT Left Leg: Appears negative for DVT IMPRESSION: 1. Bilateral lower extremities negative for deep venous thrombosis.
--- NOTE | 2017-04-13 10:02 | XR ---
EXAMINATION TYPE: XR knee complete bilateral DATE OF EXAM: 04/13/2017 COMPARISON: NONE HISTORY: Pain TECHNIQUE: Three views are submitted of each knee. FINDINGS: Hypertrophic changes and narrowing of the joint spaces are noted bilaterally. Osseous structures are intact. No acute fracture seen. IMPRESSION: 1. No acute fracture or dislocation. 2. severe bilateral osteoarthritis.
[2017-04-13] MEDS: HYDROmorphone 1 MG/ML 1 ML SYRINGE IVP PRN ×3 (15:15→23:37)
[2017-04-13] MEDS: DIAZEPAM 5 MG TAB PO SCH (21:09)
[2017-04-14] MEDS: HYDROmorphone 1 MG/ML 1 ML SYRINGE IVP PRN ×5 (03:36→21:28)
[2017-04-14] MEDS: GABAPENTIN 300 MG CAP PO SCH ×2 (07:41→21:28)
[2017-04-14] MEDS: FUROSEMIDE 20 MG TAB PO SCH ×2 (07:41→17:32)
[2017-04-14] MEDS: FERROUS SULFATE 325 MG TAB PO SCH (07:41)
[2017-04-14] MEDS: POTASSIUM CHLORIDE ER 20 MEQ TAB.ER PO SCH ×2 (07:42→21:28)
[2017-04-14] MEDS: LEVOTHYROXINE 25 MCG TAB PO SCH (07:42)
[2017-04-14] MEDS: SPIRONOLACTONE 25 MG TAB PO SCH ×2 (07:42→21:28)
[2017-04-14] MEDS: HYDROcodone/APAP 10-325MG 1 EACH TAB PO PRN (09:26)
[2017-04-14] MEDS: ALPRAZolam 0.5 MG TAB PO PRN (09:27)
--- NOTE | 2017-04-14 15:22 | PN ---
PROGRESS NOTE DATE OF SERVICE: 04/14/2017 This is a 46-year-old female who was admitted with a fall and injuring her low back and hip. Her-rays showed advanced osteoarthritis and degenerative disc disease but no fracture or or dislocations. The patient has been placed back on her previous medications and pain controlled with Dilaudid and [place]. The patient also has chronic anemia and her vital signs are otherwise stable. There is no acute cardiorespiratory problems and she has been receiving physical therapy to improve ambulation. Will further evaluate her anemia. Will have a serum iron ferritin level, and B12 and folate levels checked to see efficiency of these factors. Overall prognosis is guarded. Will continue current medications. MMODL / IJN: [id number] /
--- NOTE | 2017-04-14 15:37 | HP ---
HISTORY AND PHYSICAL DATE OF ADMISSION: 04/12/2017 This is a 46-year-old year old female who was brought to the emergency room because she fell in the bathroom. She was getting up from the toilet and was bending to wipe herself and then she lost her balance and fell. There was no loss of consciousness and there was no injury other than she felt her low back hit the toilet. She was having severe pain and difficulty in walking because of the pain and she was brought to the emergency room. She was evaluated in the ER and her CBC showed a WBC of 10.4, hemoglobin 9.1, platelet count of 415,000. Sodium 137, potassium 4.5, BUN 5, creatinine 0.74, and glucose 100. Chest x-ray within normal limits and x-ray of the knee bilaterally showed advanced osteoarthritis and also degenerative changes in the lumbosacral spine. Patient was admitted to the hospital for further evaluation and treatment. PAST MEDICAL HISTORY: Reveals that the patient has severe morbid obesity, her weight is over 300 pounds and she also has chronic low back pain and chronic anemia. She has been on ferrous sulfate. 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 Currently, she is taking ferrous sulfate and she still continues to have anemia. Patient also has history of mental depression and bipolar disorder. ALLERGIES: PERCOCET and PROCAINE. FAMILY HISTORY: Strongly positive for obesity, heart disease, and also anemia. REVIEW OF SYSTEMS: Patient denies any headache, but she has severe difficulty in walking and standing up and mostly because of her morbid obesity and patient denies any chest pain or cough. There is no abdominal pain. She has no polyuria or dysuria. She has no neurological symptoms. PHYSICAL EXAMINATION: Reveals a 46-year-old female who is morbidly obese. She is alert and oriented, but she has difficulty in getting up from bed and also moving around because of the morbid obesity and also because of recent fall with a sprain and an injury of the low back area. She has other symptoms. She has no polyuria or dysuria. She has no other neurologic symptoms. Physical examination reveals a 46-year-old female who is morbidly obese and there is no jaundice. There is no generalized lymphadenopathy. No petechia or bruises. She is afebrile, temperature 98.4, pulse 105 per minute, blood pressure 180/105 in the ER. Neck is supple. There is no jugular venous distention. There is no goiter and there is no carotid bruit. Heart is in sinus rhythm. Lungs reveal diminished breath sounds over both bases. Abdomen is markedly obese and there is no mass palpable and soft and nontender. Exam of the lower extremities reveal no pitting edema. She has had bilateral venous Doppler of the lower extremities which was negative for DVT. IMPRESSION: 1. Recent history of fall with low back pain and pelvic pain. 2. Advanced degenerative arthritis of the knee, bilaterally. 3. Chronic anemia, etiology undetermined. 4. Morbid obesity. 5. Hypertensive cardiovascular disease. 6. History of mental depression and bipolar disorder. PLAN: Patient will be admitted to the hospital and her pain better controlled. Pain was controlled with [place] and Dilaudid. Will also have Physical Therapy evaluate her and give treatment to improve her ambulation. Will place her back on home medications. Prognosis is guarded. The diagnosis, prognosis and therapeutic plans were discussed in detail with the patient. MMODL / IJN: [id number] /
[2017-04-14] MEDS: DIAZEPAM 5 MG TAB PO SCH (21:28)
[2017-04-15] MEDS: HYDROmorphone 1 MG/ML 1 ML SYRINGE IVP PRN ×5 (02:47→20:45)
[2017-04-15] MEDS: FERROUS SULFATE 325 MG TAB PO SCH (09:07)
[2017-04-15] MEDS: GABAPENTIN 300 MG CAP PO SCH ×2 (09:07→20:45)
[2017-04-15] MEDS: FUROSEMIDE 20 MG TAB PO SCH ×2 (09:07→16:58)
[2017-04-15] MEDS: SPIRONOLACTONE 25 MG TAB PO SCH ×2 (09:07→20:45)
[2017-04-15] MEDS: POTASSIUM CHLORIDE ER 20 MEQ TAB.ER PO SCH ×2 (09:07→20:45)
[2017-04-15] MEDS: LEVOTHYROXINE 25 MCG TAB PO SCH (09:07)
[2017-04-15] MEDS: HYDROcodone/APAP 10-325MG 1 EACH TAB PO PRN ×2 (09:13→20:45)
[2017-04-16] MEDS: DIAZEPAM 5 MG TAB PO SCH ×2 (01:39→20:32)
[2017-04-16] MEDS: HYDROmorphone 1 MG/ML 1 ML SYRINGE IVP PRN ×4 (03:38→18:42)
[2017-04-16] MEDS: POTASSIUM CHLORIDE ER 20 MEQ TAB.ER PO SCH ×2 (08:06→20:32)
[2017-04-16] MEDS: SPIRONOLACTONE 25 MG TAB PO SCH ×2 (08:06→20:33)
[2017-04-16] MEDS: LEVOTHYROXINE 25 MCG TAB PO SCH (08:06)
[2017-04-16] MEDS: FUROSEMIDE 20 MG TAB PO SCH ×2 (08:06→15:01)
[2017-04-16] MEDS: FERROUS SULFATE 325 MG TAB PO SCH (08:06)
[2017-04-16] MEDS: GABAPENTIN 300 MG CAP PO SCH ×2 (08:06→20:33)
[2017-04-16] MEDS: HYDROcodone/APAP 10-325MG 1 EACH TAB PO PRN (18:00)
[2017-04-17] MEDS: HYDROmorphone 1 MG/ML 1 ML SYRINGE IVP PRN ×7 (00:30→23:29)
[2017-04-17] MEDS: HYDROcodone/APAP 10-325MG 1 EACH TAB PO PRN ×2 (00:30→06:17)
[2017-04-17] MEDS: FERROUS SULFATE 325 MG TAB PO SCH (08:11)
[2017-04-17] MEDS: SPIRONOLACTONE 25 MG TAB PO SCH ×2 (08:12→21:57)
[2017-04-17] MEDS: FUROSEMIDE 20 MG TAB PO SCH ×2 (08:12→15:02)
[2017-04-17] MEDS: LEVOTHYROXINE 25 MCG TAB PO SCH (08:12)
[2017-04-17] MEDS: POTASSIUM CHLORIDE ER 20 MEQ TAB.ER PO SCH ×2 (08:12→21:57)
[2017-04-17] MEDS: GABAPENTIN 300 MG CAP PO SCH ×2 (08:12→21:58)
--- NOTE | 2017-04-17 08:52 | P.CNOR ---
History of Present Illness - HPI Consult date: 04/17/17 Consult reason: joint pain (bilateral knee pain and left foot pain) History of present illness: The patient is a 46-year-old female who presented to the emergency department on 04/12/2017. She states she fell in the bathroom at her home on 04/11/2017 while using the toliet. She states she had to crawl on the floor to get to the bathtub to help her stand up. The patient is now complaining of bilateral knee pain and left foot pain. Orthopedics was consulted for further evaluation and care. She denies previous care to her knees or feet in the past. She does take arthritis medication but is concerned about what type of arthritis she has. The patient states she has had "arthritis" since she was young. She states she has lost about 50 pounds lately and would like to lose more. Today, she does complain of bilateral knee pain but states most of her pain is in her left great toe. She states the pain started after the fall. She is unable to bear weight into her left foot due to the pain. She denies fever, chills, nausea, vomiting, abdominal pain, chest pain, and shortness of breath today. Review of Systems Constitutional: Denies chills, Denies fatigue, Denies fever Cardiovascular: Reports as per HPI, Denies chest pain, Denies shortness of breath Respiratory: Reports as per HPI Gastrointestinal: Reports as per HPI Musculoskeletal: Reports as per HPI Musculoskeletal: left: foot pain, foot swelling, bilateral: knee pain Past Medical History Past Medical History: Neurologic Disorder, Osteoarthritis (OA) Additional Past Medical History / Comment(s): chronic right leg wounds morbid obesity Last Myocardial Infarction Date:: 1989 History of Any Multi-Drug Resistant Organisms: None Reported Past Surgical History: Section, Tubal Ligation Additional Past Surgical History / Comment(s): colonoscopy Past Anesthesia/Blood Transfusion Reactions: No Reported Reaction Additional Past Anesthesia/Blood Transfusion Reaction / Comm: Pt has received blood in the past without reaction, once r/t childbirth and once due to anemia. Past Psychological History: Anxiety Additional Psychological History / Comment(s): Pt states she lives alone. She uses no assistive device. She can drive but does not own a car so she uses a cab or her insurance company for rides. She states her depression is stable at this time and has no suicidal thoughts or plans. She has had several suicide attempts in the past. Smoking Status: Never smoker Past Alcohol Use History: Rare Past Drug Use History: None Reported - Past Family History Father History Unknown: Yes Additional Family Medical History / Comment(s): Pt was adopted and does not know parents/family medical hx. Medications and Allergies Home Medications Medication Instructions Recorded Confirmed Type Ferrous Sulfate [Iron (65 MG 325 mg PO DAILY 08/28/14 04/12/17 History Elemental)] Gabapentin [Neurontin] 300 mg PO BID 08/28/14 04/12/17 History Potassium Chloride [Klor-Con 20] 20 meq PO BID 04/22/16 04/12/17 History Levothyroxine Sodium [Synthroid] 25 mcg PO DAILY 05/09/16 04/12/17 History Spironolactone 50 mg PO BID 08/10/16 04/12/17 History ALPRAZolam [Xanax] 0.5 mg PO BID PRN #60 tablet 10/20/16 04/12/17 Rx Diazepam [Valium] 5 mg PO HS #30 tab 10/20/16 04/12/17 Rx Furosemide [Lasix] 20 mg PO BID@0900,1600 tab 10/20/16 04/12/17 Rx HYDROcodone/APAP 10-325MG [[place] 1 tab PO Q6H PRN 04/12/17 04/12/17 History 10-325] Allergies Allergy/AdvReac Type Severity Reaction Status Date / Time oxycodone HCl [From Percocet] Allergy Rash/Hives Verified 04/12/17 18:51 procaine HCl [From Novocain] Allergy facial Verified 04/12/17 18:51 swelling Physical Examination The patient is a 46-year-old female who is in no acute distress. She is alert and oriented 3. Focused exam of the bilateral lower extremities reveal 3-4+ pitting edema to the bilateral feet. There are chronic skin changes to the bilateral lower legs, worse on the right. Palpation reveals medial joint line pain to the bilateral knees. No obvious deformities or open wounds present. There is pain to palpation to the left great toe at the 1st MTP joint. The rest of left foot and right foot is non-tender. Calves are soft and non- tender. Circulatory and neurological status is intact. Results - Labs Labs: H & H 04/12/17 04/13/17 Range/Units 09:25 08:33 Hgb 9.1 L 9.1 L (11.4-16.0) gm/dL Hct 29.0 L 30.2 L (34.0-46.0) % Result Diagrams: 04/13/17 08:33 04/13/17 08:33 - Diagnostic results Knee x-ray: image reviewed (Tri-compartment arthritic changes present to the bilateral knees. ) Ankle/Foot x-ray: image reviewed (No fractures or dislocations seen. ) Assessment and Plan (1) Foot pain, left Current Visit: Yes Status: Acute Code(s): M79.672 - PAIN IN LEFT FOOT SNOMED Code(s): 92424205 (2) Knee pain, bilateral Current Visit: Yes Status: Acute Code(s): M25.561 - PAIN IN RIGHT KNEE; M25.562 - PAIN IN LEFT KNEE SNOMED Code(s): 57532906 (3) Osteoarthritis of knees, bilateral Current Visit: Yes Status: Acute Code(s): M17.0 - BILATERAL PRIMARY OSTEOARTHRITIS OF KNEE SNOMED Code(s): 527539959 (4) Fall Current Visit: Yes Status: Acute Code(s): W19.XXXA - UNSPECIFIED FALL, INITIAL ENCOUNTER SNOMED Code(s): 6729543 Plan: The clinical findings were discussed with the patient. The case was also discussed with Dr. Lazo. We will obtain left foot x-rays to rule out fracture. Lab work will be ordered to rule out gout and other inflammatory arthritis. Continue physical therapy. May weightbear as tolerated to the bilateral lower extremities. Encouraged weight loss to alleviate load on knees. Foot x-ray reveal no fractures or dislocations. Uric acid level was elevated. The patient may have gout. She would benefit from steriods or anti-gout medications. We will defer gout management to Dr. Vásquez. A rheumatology evaluation may be needed if she fails to improve. She may follow up in our office on an outpatient basis for further care on her knees.
--- NOTE | 2017-04-17 09:23 | XR ---
EXAMINATION TYPE: XR foot complete LT DATE OF EXAM: 04/17/2017 COMPARISON: NONE HISTORY: Pain TECHNIQUE: Three views are submitted. FINDINGS: The osseous structures are intact and there is mild narrowing the first MTP with hypertrophic change. Hammertoe deformities noted. Calcaneal spurs seen.. There is no acute fracture or dislocation. Hyp ertrophic change and narrowing of the talonavicular joint noted. IMPRESSION: 1. No acute fracture or dislocation. If symptoms persist, follow-up exam in 7 to 10 days could be ob tained. 2. Arthropathy.
[2017-04-17 10:26] LABS: C Reactive Protein 54.9 mg/L (<10.0); Rheumatoid Factor, Qnt <9 IU/mL (<12); Uric Acid 9.1 mg/dL (3.7-7.4)
--- NOTE | 2017-04-17 12:29 | P.CONS ---
History of Present Illness - Reason for Consult Consult date: 04/17/17 anemia, unknown etiology Requesting physician: Pablito Vásquez - Chief Complaint fall, weakness - History of Present Illness Mrs. Dunham is a very pleasant 46-year-old -[place] Citizen female with a long history of anemia, patient has not been diagnosed with an underlying condition/ cause of her anemia. She has received iron infusions, had blood transfusion and B12 injections in the past, the only thing she continues at this time is oral iron. Patient states no bleeding, does have regular, heavy menses. She denies any bariatric surgical procedures, no other surgeries that could alter absorption, never had an EGD, had colonoscopy that was positive for diverticulosis, denies any recent exacerbation and abdominal pain, no black or bloody stools. She states she has arthritis with moderate joint pains, denies diagnosis of autoimmune diseases. No family history of blood disorders, patient states she has sickle cell trait, no other blood disorders to report. patient complains of constant fatigue, poor energy levels. Patient denies fevers, sweats,unintentional weight loss, difficulty swallowing, nausea, she is short of breath with exertion, does not require oxygen, no acute changes in bowel or bladder habits. Review of Systems 10 point ROS as stated in HPI Past Medical History Past Medical History: Neurologic Disorder, Osteoarthritis (OA) Additional Past Medical History / Comment(s): chronic right leg wounds morbid obesity, sickel cell trait Last Myocardial Infarction Date:: 1989 History of Any Multi-Drug Resistant Organisms: None Reported Past Surgical History: Section, Tubal Ligation Additional Past Surgical History / Comment(s): colonoscopy Past Anesthesia/Blood Transfusion Reactions: No Reported Reaction Additional Past Anesthesia/Blood Transfusion Reaction / Comm: Pt has received blood in the past without reaction, once r/t childbirth and once due to anemia. Past Psychological History: Anxiety Additional Psychological History / Comment(s): Pt states she lives alone. She uses no assistive device. She can drive but does not own a car so she uses a cab or her insurance company for rides. She states her depression is stable at this time and has no suicidal thoughts or plans. She has had several suicide attempts in the past. Smoking Status: Never smoker Past Alcohol Use History: Rare Past Drug Use History: None Reported - Past Family History Father History Unknown: Yes Additional Family Medical History / Comment(s): Pt was adopted and does not know parents/family medical hx. Medications and Allergies Home Medications Medication Instructions Recorded Confirmed Type Ferrous Sulfate [Iron (65 MG 325 mg PO DAILY 08/28/14 04/12/17 History Elemental)] Gabapentin [Neurontin] 300 mg PO BID 08/28/14 04/12/17 History Potassium Chloride [Klor-Con 20] 20 meq PO BID 04/22/16 04/12/17 History Levothyroxine Sodium [Synthroid] 25 mcg PO DAILY 05/09/16 04/12/17 History Spironolactone 50 mg PO BID 08/10/16 04/12/17 History ALPRAZolam [Xanax] 0.5 mg PO BID PRN #60 tablet 10/20/16 04/12/17 Rx Diazepam [Valium] 5 mg PO HS #30 tab 10/20/16 04/12/17 Rx Furosemide [Lasix] 20 mg PO BID@0900,1600 tab 10/20/16 04/12/17 Rx HYDROcodone/APAP 10-325MG [[place] 1 tab PO Q6H PRN 04/12/17 04/12/17 History 10-325] Allergies Allergy/AdvReac Type Severity Reaction Status Date / Time oxycodone HCl [From Percocet] Allergy Rash/Hives Verified 04/12/17 18:51 procaine HCl [From Novocain] Allergy facial Verified 04/12/17 18:51 swelling Physical Exam Vitals: Vital Signs Temp Pulse Resp BP Pulse Ox 04/17/17 07:00 97.8 F 94 18 108/53 97 04/16/17 23:00 98.8 F 111 H 20 129/58 95 04/16/17 14:17 99.8 F H 120 H 18 121/78 99 Intake and Output 04/16/17 04/17/17 04/17/17 22:59 06:59 14:59 Other: Voiding Method Bedside Commode Bedside Commode # Voids 2 3 1 # Bowel Movements 1 - Constitutional General appearance: cooperative, morbidly obese, no acute distress - EENT Eyes: anicteric sclerae, EOMI, normal appearance ENT: hearing grossly normal, normal oropharynx - Neck Neck: no lymphadenopathy - Respiratory Respiratory: bilateral: CTA - Cardiovascular Heart sounds: normal: S1, S2 Abnormal Heart Sounds: no systolic murmur, no diastolic murmur, no rub, no S3 Gallop, no S4 Gallop, no click, no other leg Peripheral Edema: bilateral: Trace - Gastrointestinal General gastrointestinal: normal bowel sounds, soft - Integumentary spoon shaped, dry brittle nails Integumentary: normal - Neurologic Neurologic: CNII-XII intact - Musculoskeletal Musculoskeletal: strength equal bilaterally - Psychiatric Psychiatric: A&O x's 3, appropriate affect, intact judgment & insight Results CBC & Chem 7: 04/13/17 08:33 04/13/17 08:33 Labs: Abnormal Lab Results - Last 24 Hours (Table) 04/17/17 04/17/17 Range/Units 09:38 09:38 Retic Count 3.0 H (0.5-2.0) % Uric Acid 9.1 H (3.7-7.4) mg/dL C-Reactive Protein 54.9 H (<10.0) mg/L Comments: doppler report reviewed Xray reports reviewed Assessment and Plan (1) Normochromic normocytic anemia Narrative/Plan: Additional labs have been ordered for evaluation of what may be a deficiency state anemia. B12 x 1 dose given today. IV iron will be ordered. Earlier this year pt was worked up for paraproteinemia, none identified, no additional labs in regard to bone marrow function at this time. Further work up of pt sickle cell trait will be discussed with Dr. Byrnes. Current Visit: Yes Status: Chronic Priority: Medium Code(s): D64.9 - ANEMIA, UNSPECIFIED SNOMED Code(s): 75998136 Plan: Numerous inflammatory markers are elevated, pt may require a Rheumatology Consult. Will follow up on labs, additional work up to follow after review of case with Physician
[2017-04-17] MEDS ORDERED: CYANOCOBALAMIN 1,000 MCG/ML 1 ML VIAL IM ONE (12:30)
--- NOTE | 2017-04-17 17:46 | PN ---
PROGRESS NOTE DATE OF SERVICE: 04/16/2017 This is a 46-year-old white female who was admitted following a fall at home injuring her hip and low back. She was complaining of severe pain and the x-ray showed evidence of degenerative arthritis and she is also morbidly. She has a history of hypertensive cardiovascular disease and anemia and also morbid obesity. The patient is getting Dilaudid and [place] for pain control. However, her pain in the knee is getting worse and her vital signs otherwise stable. Will get orthopedic consultation and also she has long-standing history of anemia. Will get a consultation from milk condenser. Overall prognosis is guarded. MMODL / IJN: [id number] /
--- NOTE | 2017-04-17 17:49 | PN ---
PROGRESS NOTE DATE OF SERVICE: 04/17/2017 This is a 46-year-old white female who was admitted with severe low back and bilateral knee pain. This started after she fell at home in the bathroom and apparently hit the back and hit the toilet and patient was having severe pain. The patient was admitted to the hospital for further evaluation and treatment. Her x-ray showed degenerative arthritis. The patient's pain is being controlled with Dilaudid and [place]. The patient is still having severe pain, especially in the both knees. The patient was seen by Orthopedics and they recommended physical therapy and the patient also has longstanding history of anemia and serum iron and ferritin level was low and she has been on ferrous sulfate. Her vital signs are stable. Heart is in sinus rhythm. Lungs are clear even though she has diminished breath sounds both bases. She is moderately obese. We will also consult Dr. Byrnes from Hematology with regard to chronic iron deficiency anemia. Overall prognosis is guarded. MMODL / IJN: [id number] /
--- NOTE | 2017-04-17 17:49 | PN ---
PROGRESS NOTE DATE OF SERVICE: 04/15/2017 This is a 46-year-old, female who was admitted with a fall and injuring her knee and back and low back and also was having severe pain in this area. X-rays did not show any fracture, but there is evidence of degenerative disease. The patient was started on IV fluids and pain was controlled with Dilaudid and [place]. Vital signs otherwise stable. She is markedly obese and not able to move around with help. She uses a walker. She also has a longstanding history of chronic iron deficiency anemia and she has been on ferrous sulfate. She also has history of mental depression, and bipolar disease. Overall prognosis is guarded. We will continue current medications. MMODL / IJN: [id number] /
[2017-04-17] MEDS: DIAZEPAM 5 MG TAB PO SCH (21:58)
[2017-04-18] MEDS: HYDROmorphone 1 MG/ML 1 ML SYRINGE IVP PRN ×5 (04:23→21:38)
[2017-04-18] MEDS: GABAPENTIN 300 MG CAP PO SCH ×2 (08:15→20:45)
[2017-04-18] MEDS: LEVOTHYROXINE 25 MCG TAB PO SCH (08:15)
[2017-04-18] MEDS: FERROUS SULFATE 325 MG TAB PO SCH (08:15)
[2017-04-18] MEDS: POTASSIUM CHLORIDE ER 20 MEQ TAB.ER PO SCH ×2 (08:15→20:47)
[2017-04-18] MEDS: FUROSEMIDE 20 MG TAB PO SCH ×2 (08:15→16:09)
[2017-04-18] MEDS: SPIRONOLACTONE 25 MG TAB PO SCH ×2 (08:15→20:47)
[2017-04-18] MEDS ORDERED: SODIUM FERRIC GLUCONAT-SUCROSE 125 MG in SODIUM CHLORIDE 0.9% 100 ML IVPB ONE (08:30)
[2017-04-18] MEDS: ALPRAZolam 0.5 MG TAB PO PRN (18:02)
--- NOTE | 2017-04-18 19:28 | P.PN ---
Subjective Progress Note Date: 04/18/17 Principal diagnosis: fall, anemia Pt seen today in follow up, she continues to be tired, weak, no MARCUS, nausea, bleeding. Objective - Vital Signs Vital signs: Vital Signs Temp 97.3 F L 04/18/17 15:00 Pulse 108 H 04/18/17 15:00 Resp 16 04/18/17 15:00 BP 136/70 04/18/17 15:00 Pulse Ox 100 04/18/17 15:00 Intake & Output 04/18/17 04/18/17 04/19/17 06:59 18:59 06:59 Intake Total 600 Balance 600 Intake: Oral 600 Other: Voiding Method Bedside Commode Bedside Commode # Voids 1 4 - Exam Pt laying in bed, no distress, alert and oriented once aroused - Labs CBC & Chem 7: 04/13/17 08:33 04/13/17 08:33 Labs: Abnormal Lab Results - Last 24 Hours (Table) 04/17/17 Range/Units 09:38 RBC Folate 210 L (280 - 791) ng/mL Assessment and Plan (1) Normochromic normocytic anemia Current Visit: Yes Status: Chronic Priority: Medium Code(s): D64.9 - ANEMIA, UNSPECIFIED SNOMED Code(s): 69897119 (2) B12 deficiency anemia Current Visit: Yes Status: Acute Priority: High Code(s): D51.9 - VITAMIN B12 DEFICIENCY ANEMIA, UNSPECIFIED SNOMED Code(s): 36458303 (3) Folate deficiency anemia Current Visit: Yes Status: Acute Priority: High Code(s): D52.9 - FOLATE DEFICIENCY ANEMIA, UNSPECIFIED SNOMED Code(s): 57480387 Plan: Lab studies thus far indicate low normal/deficiency state, low iron, low normal B12 and folate deficiency. IM B12 and PO folic acid ordered, oral iron daily and a dose of parenteral iron given. Recommend daily oral supplement folic acid, B12 IM weekly x 4 then monthly Follow up Dr. Byrnes in 3-4 weeks for lab eval and iron study re-check, pt may require more parenteral iron. Pt states having colonoscopy-I find no results of that procedure in EMR-pt denies EGD. Endoscopy studies may be reasonable, will leave to the discretion of PCP.
[2017-04-18] MEDS: HYDROcodone/APAP 10-325MG 1 EACH TAB PO PRN (20:45)
[2017-04-18] MEDS: DIAZEPAM 5 MG TAB PO SCH (20:47)
[2017-04-19] MEDS: HYDROmorphone 1 MG/ML 1 ML SYRINGE IVP PRN ×5 (01:57→20:04)
[2017-04-19] MEDS: POTASSIUM CHLORIDE ER 20 MEQ TAB.ER PO SCH ×2 (08:23→21:05)
[2017-04-19] MEDS: FUROSEMIDE 20 MG TAB PO SCH ×2 (08:23→16:01)
[2017-04-19] MEDS: FOLIC ACID 1 MG TAB PO SCH (08:24)
[2017-04-19] MEDS: FERROUS SULFATE 325 MG TAB PO SCH (08:24)
[2017-04-19] MEDS: GABAPENTIN 300 MG CAP PO SCH ×2 (08:24→21:05)
[2017-04-19] MEDS: SPIRONOLACTONE 25 MG TAB PO SCH ×2 (08:24→21:05)
[2017-04-19] MEDS: LEVOTHYROXINE 25 MCG TAB PO SCH (08:24)
[2017-04-19 11:15] LABS: Basophils # (A) 0.1 k/uL (0-0.2); Basophils % (A) 1 %; CH 26.7; CHCM 30.5; Eosinophils # (A) 0.2 k/uL (0-0.7); Eosinophils % (A) 2 %; HCT 31.7 % (34.0-46.0); HDW 2.42; HGB 9.5 gm/dL (11.4-16.0); Hypochromasia Moderate; Luc # (Auto) 0.22; Luc % (Auto) 2; Lymphocytes # (A) 2.3 k/uL (1.0-4.8); Lymphocytes % (A) 21 %; MCH 26.4 pg (25.0-35.0); MCV 87.9 fL (80.0-100.0); Mean Platelet Volume 6.2; Monocytes # (A) 0.8 k/uL (0-1.0); Monocytes % (A) 7 %; Neutrophils # (A) 7.3 k/uL (1.3-7.7); Neutrophils % (A) 67 %; RBC 3.61 m/uL (3.80-5.40); RDW 15.2 % (11.5-15.5); WBC 10.9 k/uL (3.8-10.6); WBC (Perox) 11.38
[2017-04-19 11:31] LABS: ALT 27 U/L (9-52); AST 16 U/L (14-36); Alkaline Phosphatase 66 U/L (38-126); Anion Gap 8 mmol/L; Blood Urea Nitrogen 18 mg/dL (7-17); Calcium 9.7 mg/dL (8.4-10.2); Carbon Dioxide 30 mmol/L (22-30); Chloride 100 mmol/L (98-107); Glucose 119 mg/dL (74-99); Non-African American GFR(MDRD) >60 (>60 ml/min/1.73 sqM); Potassium 4.6 mmol/L (3.5-5.1); Sodium 138 mmol/L (137-145); Total Bilirubin 0.4 mg/dL (0.2-1.3); Total Protein 7.5 g/dL (6.3-8.2)
[2017-04-19] MEDS: ALLOPURINOL 100 MG TAB PO SCH (12:11)
[2017-04-19] MEDS: DIAZEPAM 5 MG TAB PO SCH (21:05)
[2017-04-19] MEDS: HYDROcodone/APAP 10-325MG 1 EACH TAB PO PRN (22:21)
[2017-04-20] MEDS: HYDROmorphone 1 MG/ML 1 ML SYRINGE IVP PRN ×5 (02:17→21:03)
[2017-04-20 04:40] LABS: Methylmalonic Acid 0.28 umol/L (<0.40)
[2017-04-20] MEDS: ALPRAZolam 0.5 MG TAB PO PRN ×2 (08:03→21:20)
[2017-04-20] MEDS: SPIRONOLACTONE 25 MG TAB PO SCH ×2 (08:04→21:09)
[2017-04-20] MEDS: FUROSEMIDE 20 MG TAB PO SCH ×2 (08:04→16:39)
[2017-04-20] MEDS: LEVOTHYROXINE 25 MCG TAB PO SCH (08:04)
[2017-04-20] MEDS: POTASSIUM CHLORIDE ER 20 MEQ TAB.ER PO SCH ×2 (08:04→21:09)
[2017-04-20] MEDS: GABAPENTIN 300 MG CAP PO SCH ×2 (08:04→21:09)
[2017-04-20] MEDS: FERROUS SULFATE 325 MG TAB PO SCH (08:04)
[2017-04-20] MEDS: ALLOPURINOL 100 MG TAB PO SCH (08:05)
[2017-04-20] MEDS: FOLIC ACID 1 MG TAB PO SCH (08:05)
--- NOTE | 2017-04-20 16:14 | PN ---
PROGRESS NOTE DATE OF SERVICE: 04/19/2017 This is a 46-year-old white female was admitted with disease and falling in the bathroom and she hit the back on the tile and she was complaining of severe pain in the low back and also pain in her knees. Patient also known to have chronic anemia and the patient was admitted to the hospital for further evaluation and treatment. The patient's pain is being controlled with Dilaudid and [place] and the patient was seen by [facility] and they recommended physical therapy and a x-ray of the knees showed advanced arthritis. The patient also has a history of mental depression and she has bipolar disorder. She has been hospitalized for psychiatric problem in the past and has been following with a psychiatrist and has been on medications. The patient apparently stopped all those things by herself and Radio Tower Technician was making arrangements for discharge planning. The patient is not able to take care of herself at home because of the extreme morbid obesity and also because of the pain in the joints with both low back, hip pain or also the knee pain. Overall prognosis is guarded. Patient has been placed back on her previous home medications. A hematology consultation was obtained and Dr. Byrnes saw the patient. The patient received parenteral iron and she was found to have the folic acid and B12 on the lower side. The Radio Tower Technician has made arrangements for her to be transferred to [facility] and she should continue physical therapy and occupational therapy there. SHARON / LULU: [id number] /
--- NOTE | 2017-04-20 16:14 | PN ---
PROGRESS NOTE DATE OF SERVICE: 04/18/2017 This is a 46-year-old white female who has multiple medical problems and the patient is morbidly obese and also has low back pain and history of bipolar disorder with mental depression and also she has chronic anemia and she has been evaluated by Dr. Byrnes, art consultant in the past and she has received IV parenteral iron. The patient was admitted to the hospital for further evaluation and treatment. The patient apparently fell at home and she hit her back, her back hit the tile and when she fell and she was having severe pain. She was admitted to the hospital for further evaluation and treatment. She also has been complaining of severe pain in her knees and x-rays show advanced arthritis and she was seen by [facility] in consultation and recommended physical therapy. Currently, she is receiving physical therapy. Her vital signs are stable. Heart is in sinus rhythm. Lungs are clear to clear. There is no acute cardio or respiratory problems. We will continue with physical therapy and pain is being controlled with Dilaudid and [place]. Prognosis is guarded. The diagnosis, prognosis and therapeutic plans and also discharge plan were discussed in detail with the patient. MMODL / IJN: [id number] /
--- NOTE | 2017-04-20 16:17 | PN ---
PROGRESS NOTE DATE OF SERVICE: 04/20/2017 This is a 46-year-old white female was admitted to the hospital with following a fall at home in the bathroom and she hit her back on the toilet and was complaining of severe pain. The patient was admitted to the hospital for further evaluation and treatment. The patient also was found to have advanced arthritis of the knees bilaterally and also had degenerative disc disease and the patient's pain is being controlled with Dilaudid and [place]. The patient is currently receiving physical therapy to improve her ambulation and also for arthritis of the knee. The patient was seen by [facility] in consultation and certified master safe technician, Dr. Byrnes saw the patient. Patient received parenteral iron. Dr. Byrnes has evaluated her in the past for her anemia. The patient also has a history of a bipolar disorder and has had been in a psychiatric facility for mental depression and was following with a psychiatrist and was on medication. The patient stopped her medication and also seeing the psychiatrist on her own. Now patient is complaining of feeling very much depressed and she is asking for psychiatric help and psychiatric consultation. We will consult psychiatrist for evaluation and treatment, possibly transferring her to the mental health unit. The psychiatric evaluation is pending. The patient was informed of the psychiatric consultation and she was scheduled to be transferred to [facility] today, but because of the severe mental depression and she is going to be seen by a psychiatrist for evaluation. We will hold in the transfer to the [facility] today. Prognosis is guarded. The diagnosis, prognosis, intraoperative plan, and also the discharge plans were all discussed in detail with the patient today. MMODL / IJN: [id number] /
[2017-04-20] MEDS: HYDROcodone/APAP 10-325MG 1 EACH TAB PO PRN (18:51)
[2017-04-20] MEDS: DIAZEPAM 5 MG TAB PO SCH (21:09)
[2017-04-21] MEDS: HYDROmorphone 1 MG/ML 1 ML SYRINGE IVP PRN ×5 (02:19→23:11)
[2017-04-21] MEDS: LEVOTHYROXINE 25 MCG TAB PO SCH (10:09)
[2017-04-21] MEDS: FERROUS SULFATE 325 MG TAB PO SCH (10:09)
[2017-04-21] MEDS: GABAPENTIN 300 MG CAP PO SCH ×2 (10:09→20:43)
[2017-04-21] MEDS: POTASSIUM CHLORIDE ER 20 MEQ TAB.ER PO SCH ×2 (10:09→20:43)
[2017-04-21] MEDS: ALLOPURINOL 100 MG TAB PO SCH (10:09)
[2017-04-21] MEDS: FUROSEMIDE 20 MG TAB PO SCH ×2 (10:09→15:02)
[2017-04-21] MEDS: SPIRONOLACTONE 25 MG TAB PO SCH ×2 (10:10→20:43)
--- NOTE | 2017-04-21 10:32 | P.CN ---
Psychiatric Consult - . Consult date: 04/21/17 Consult:: PSYCHIATRY CONSULTATION REASON FOR CONSULT: Depression HPI: Patient is a 46 year old AA female who presented to the ER on 04/12/2017 reporting that she fell at home in her bathroom after using the toilet and trying to stand. The patient reported bilateral knee pain and left foot pain. Throughout hospital course, patient has identified her left great toe as a primary source of pain and more painful than both knees combined. Said great toe is being considered as possible gouty arthritis. Patient has been working with PT to rebuild her strength and is supposed to discharge to inpatient rehabilitation later this week. PSYCHIATRIC HISTORY: Patient endorses an extensive psychiatric history. She reports multiple medication trials but is uncertain of which one specifically. Her last outpatient visit was with [facility] whom she states fired her. Patient it had to do with them asking about her mother (who reportedly killed her sister) and then later in life a boyfriend of 2 years who abruptly and suddenly in March of 2015. Patient was at that time and had a miscarriage in June of 2015. Patient cannot at this time go into any detail about either without crying incoherently. PMH: Past Medical History: Neurologic Disorder, Osteoarthritis (OA) Additional Past Medical History / Comment(s): chronic right leg wounds morbid obesity Last Myocardial Infarction Date:: 1989 History of Any Multi-Drug Resistant Organisms: None Reported Past Surgical History: Section, Tubal Ligation Additional Past Surgical History / Comment(s): colonoscopy Past Anesthesia/Blood Transfusion Reactions: No Reported Reaction Additional Past Anesthesia/Blood Transfusion Reaction / Comm: Pt has received blood in the past without reaction, once r/t childbirth and once due to anemia. Past Psychological History: Anxiety Additional Psychological History / Comment(s): Pt states she lives alone. She uses no assistive device. She can drive but does not own a car so she uses a cab or her insurance company for rides. She states her depression is stable at this time and has no suicidal thoughts or plans. She has had several suicide attempts in the past. Smoking Status: Never smoker Past Alcohol Use History: Rare Past Drug Use History: None Reported HOME MEDICATIONS: 3 Medication Instructions Recorded Confirmed Ferrous Sulfate [Iron (65 MG 325 mg PO DAILY 08/28/14 04/12/17 Elemental)] Gabapentin [Neurontin] 300 mg PO BID 08/28/14 04/12/17 Potassium Chloride [Klor-Con 20] 20 meq PO BID 04/22/16 04/12/17 Levothyroxine Sodium [Synthroid] 25 mcg PO DAILY 05/09/16 04/12/17 Spironolactone 50 mg PO BID 08/10/16 04/12/17 HYDROcodone/APAP 10-325MG [Asher 1 tab PO Q6H PRN 04/12/17 04/12/17 10-325] PAST MEDICATIONS: 3 Medication Instructions Recorded ALPRAZolam [Xanax] 0.5 mg PO BID PRN #60 tablet 10/20/16 Diazepam [Valium] 5 mg PO HS #30 tab 10/20/16 Furosemide [Lasix] 20 mg PO BID@0900,1600 tab 10/20/16 ALLERGIES: 3 Allergy/AdvReac Type Severity Reaction Status Date / Time oxycodone HCl [From Percocet] Allergy Rash/Hives Verified 04/12/17 18:51 procaine HCl [From Novocain] Allergy facial Verified 04/12/17 18:51 swelling CHEMICAL DEPENDENCY HISTORY: Denies FAMILY HISTORY: Adopted at young age, patient became distraught discussing her parents. She referenced her father being in [place] and stated that "my mother killed my sister." When I asked the patient for clarification on mother patient became overwhelmed, sobbing, and was redirected to more mundane matters. Additional family history will need to be gathered in the future SOCIAL HISTORY: Education: GED Occupational: Environmental: currently lives at home with daughter : no Druze: non-practicing Access to firearms: no Sexual orientation: heterosexual Safety at home: yes STRENGTHS/WEAKNESSES: Stable housing, stable income Utilizes various maladaptive defense mechanisms to process stress such as fantasy for unresolved grief MENTAL STATUS EXAM: Appearance: alert, disheveled, appears stated age, morbidly obese Behavior: severe psychomotor agitation, poor eye contact Attitude: cooperative Speech: normal rate, rhythm, fluency, articulation; volume soft; preferred language: [place] Mood: dysphoric, anxious, tearful at times Affect: labile, reactive especially when after discussing her child Thought processes: linear Thought content: patient does not appear to be responding to internal stimuli; patient denies auditory and visual hallucinations; no delusional behaviors or beliefs noted; denies SI, endorses flashbacks, episodes dissociation into fantasy ( example: to be with/hold child), complicated bereavement Insight: limited Judgment: fair Cognitive: oriented to all 3 spheres, average intelligence Assessment and Plan (1) Complex posttraumatic stress disorder Current Visit: Yes Status: Acute Code(s): F43.10 - POST-TRAUMATIC STRESS DISORDER, UNSPECIFIED SNOMED Code(s): 218589047 (2) Major depressive disorder, recurrent severe without psychotic features Current Visit: Yes Status: Acute Code(s): F33.2 - MAJOR DEPRESSV DISORDER, RECURRENT SEVERE W/O PSYCH FEATURES SNOMED Code(s): 37989442 Plan: RECOMMENDATIONS: Start Lexapro 10-mg PO QAM for PTSD and depression Start Minipress 1-mg PO QHS for nightmares secondary to complex PTSD Patient does not meet criteria for involuntary admission to mental health, patient is not suicidal or a danger to herself or others at this time Patient offered and declined voluntary admission to mental health Instructed to call her insurance company for a list of covered providers and schedule intake appointments for both Psychiatry and Psychology for medication management and formal psychotherapy Questions, concerns, risks, benefits, realistic expectations of Lexapro and Minipress reviewed with patient who is agreeable to trial Recommend Dietary consult to modify diet order to accommodate purine restriction if patient has a diagnosis of gout Psychiatry will follow ~ Estuardo Singer DO [phone] (pager) Time with Patient: Greater than 30
[2017-04-21 10:42] VITALS: BMI 64.7
[2017-04-21] MEDS: FOLIC ACID 1 MG TAB PO SCH (10:59)
[2017-04-21] MEDS: ALPRAZolam 0.5 MG TAB PO PRN (15:01)
[2017-04-21] MEDS: ETODOLAC 400 MG TAB PO SCH ×2 (15:01→20:44)
--- NOTE | 2017-04-21 15:21 | PN ---
PROGRESS NOTE DATE OF SERVICE: 04/21/2017 This is a 46-year-old female who was admitted to the hospital with severe pain in the low back and also in the joints, especially the knees. following a fall at home in the bathroom and she hit her back and hip on the toilet and patient was evaluated in the ER and because of the severe pain, she was admitted to the hospital for further evaluation and treatment. Patient was complaining of knee pain and hip pain and low back pain and the x-ray showed she has advanced degenerative arthritis of the knee and also degenerative disc disease and patient was seen by [facility] in consultation and she was recommended to have physical therapy and she has been started on physical therapy and patient also has multiple other medical problems and patient is known to have chronic iron-deficiency anemia and the patient was seen by Dr. Byrnes in consultation and he recommended her to have parenteral iron and she has received 1 dose and in the meantime, the patient was found to be extremely mentally depressed and she has a history of bipolar disorder and mental depression and at that time, patient has some psychotic behavior and the patient was treated in a psychiatric hospital and following this, the patient refused to continue seeing the psychiatrist and also she stopped continuing the medications. Because of his severe mental depression this time, a psychiatric consultation was requested and she was seen by Dr. Estuardo Singer and this psychiatrist found that patient has PTSD, chronic and mental depression disorder, recurrent, severe without psychotic features and recommended starting her on Lexapro 10 mg p.o. daily a.m. for PTSD and depression and also Minipress 1 mg p.o. q.h.s. for nightmares secondary to the PTSD. Patient is going to be started on these medications and patient also started getting physical therapy and her vital signs are otherwise stable. She has extremely severe morbid obesity and will try to increase her activities and if she tolerates the increased activities and also she feels that she would be able to go home when discharged, she will be discharged home instead of transferring to [facility] rehab unit as planned. Prognosis guarded. Prognosis guarded. MMODL / IJN: [id number] /
[2017-04-21] MEDS: PRAZOSIN 1 MG CAP PO SCH (20:43)
[2017-04-21] MEDS: DIAZEPAM 5 MG TAB PO SCH (20:46)
[2017-04-22] MEDS: HYDROmorphone 1 MG/ML 1 ML SYRINGE IVP PRN ×5 (05:02→21:00)
[2017-04-22] MEDS: GABAPENTIN 300 MG CAP PO SCH ×2 (08:33→21:04)
[2017-04-22] MEDS: POTASSIUM CHLORIDE ER 20 MEQ TAB.ER PO SCH ×2 (08:33→21:04)
[2017-04-22] MEDS: ALLOPURINOL 100 MG TAB PO SCH (08:33)
[2017-04-22] MEDS: ESCITALOPRAM 10 MG TAB PO SCH (08:33)
[2017-04-22] MEDS: FUROSEMIDE 20 MG TAB PO SCH ×2 (08:34→17:34)
[2017-04-22] MEDS: ETODOLAC 400 MG TAB PO SCH ×2 (08:35→21:04)
[2017-04-22] MEDS: FERROUS SULFATE 325 MG TAB PO SCH (08:35)
[2017-04-22] MEDS: LEVOTHYROXINE 25 MCG TAB PO SCH (08:36)
[2017-04-22] MEDS: SPIRONOLACTONE 25 MG TAB PO SCH ×2 (08:36→21:06)
[2017-04-22] MEDS: FOLIC ACID 1 MG TAB PO SCH (12:09)
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
[2017-04-22] MEDS: PRAZOSIN 1 MG CAP PO SCH (21:04)
[2017-04-23] MEDS: HYDROmorphone 1 MG/ML 1 ML SYRINGE IVP PRN ×2 (01:00→08:00)
[2017-04-23] MEDS: DIAZEPAM 5 MG TAB PO SCH ×2 (01:03→22:43)
[2017-04-23] MEDS: POTASSIUM CHLORIDE ER 20 MEQ TAB.ER PO SCH ×2 (08:00→22:22)
[2017-04-23] MEDS: SPIRONOLACTONE 25 MG TAB PO SCH ×2 (08:01→22:23)
[2017-04-23] MEDS: FUROSEMIDE 20 MG TAB PO SCH ×2 (08:01→16:34)
[2017-04-23] MEDS: GABAPENTIN 300 MG CAP PO SCH ×2 (08:01→22:23)
[2017-04-23] MEDS: ALLOPURINOL 100 MG TAB PO SCH (08:02)
[2017-04-23] MEDS: ETODOLAC 400 MG TAB PO SCH ×2 (08:02→22:22)
[2017-04-23] MEDS: FERROUS SULFATE 325 MG TAB PO SCH (08:02)
[2017-04-23] MEDS: ESCITALOPRAM 10 MG TAB PO SCH (08:02)
[2017-04-23] MEDS: LEVOTHYROXINE 25 MCG TAB PO SCH (08:03)
[2017-04-23] MEDS: FOLIC ACID 1 MG TAB PO SCH (12:40)
--- NOTE | 2017-04-23 15:35 | DS ---
DISCHARGE SUMMARY DATE OF ADMISSION: 04/16/2017. DATE OF DISCHARGE: This patient is going to be discharged and transferred to [facility] on 04/24/2017. DISCHARGE DIAGNOSES: 1. Recent history of falls with severe low back pain, hip pain and bilateral knee pain. 2. Degenerative disc disease, lumbosacral spine. 3. Degenerative arthritis of the knees bilaterally. 4. Hypertensive cardiovascular disease. 5. Hypothyroidism. 6. Morbid obesity. 7. Hyperuricemia. 8. Complex post traumatic stress syndrome. 9. Major depressive disorder. This is a 46-year-old female who came to the emergency room with severe low back pain, hip pain and knee pain bilaterally following a fall at home in the bathroom hitting the toilet. The patient has multiple other comorbidities and she has a history of major depression and morbid obesity, chronic low back pain, chronic anemia, and hypothyroidism. The patient was evaluated in the emergency room and then admitted to the hospital for further evaluation and treatment. For details of the physical examination at the time of admission, please refer to the history and physical. HOSPITAL COURSE: The patient was placed back on her home medications and her pain was controlled with Rock and Dilaudid on a p.r.n. basis. The patient was seen by the [facility] in consultation and they recommended physical therapy and the patient was started on physical therapy accordingly. The patient also had history of chronic anemia which is being evaluated before by Dr. Byrnes. Dr. Byrnes was consulted and the patient was treated with parenteral iron and also started on B12 and folic acid. The patient has a history of severe major depression in the past, but she has stopped seeing the psychiatrist and psychologist and also stopped all her psychiatric medications of her own decision and patient apparently was complaining of major depression and she required some . Nurse said that patient had had suicide ideation and so the psychiatric consultation was obtained and Dr. Singer saw the patient and felt that she has major depression and post traumatic stress disorder. The patient was placed on Lexapro and Minipress. She and Dr. Singer felt that the patient does not meet the criteria for inpatient psychiatric treatment. However, on the next day the patient still expressed suicide ideation to the nurses and a marine safety officer was deployed in the room and Dr. Torres saw the patient again to reevaluate the psychiatric condition. Dr. Torres felt that the patient does not have any suicidal ideation, intent, or plan and there was no evidence of any psychosis and he recommended the marine safety officer could be discontinued and will continue the Lexapro and Minipress. The patient is still not able to move around by herself and she needs to go to the bathroom and so she is going to be discharged and transferred to [facility] on 04/24/2017. She will continue: 1. Rock 10/325 one q.6 hours p.r.n. for pain. 2. Zyloprim 200 mg p.o. daily. 3. Xanax 0.5 mg p.o. b.i.d. 4. Valium 5 mg p.o. daily at bedtime. 5. Lexapro 10 mg p.o. daily a.m. 6. Lodine 400 mg p.o. b.i.d. 7. Ferrous sulfate 325 mg p.o. daily. 8. Folic acid 1 mg p.o. daily. 9. Furosemide 20 mg p.o. daily. 10.Neurontin 300 mg p.o. b.i.d. 11.Synthroid 25 mcg mcg p.o. daily. 12.Potassium chloride 20 mEq p.o. b.i.d. 13.Minipress 1 mg p.o. daily at bedtime. 14.Spironolactone 50 mg p.o. b.i.d. We will continue physical therapy and occupational therapy in the rehab unit and she will be followed by me for her medical problems while she is in the group home. MMODL / DAVIDN: [id number] /
--- NOTE | 2017-04-23 15:44 | PN ---
PROGRESS NOTE DATE OF SERVICE: 04/22/2017 This 46-year-old female who has multiple medical problems. She is morbidly obese and has history of hypertension and major depression, chronic anemia and she was brought to the emergency room because she fell in the bathroom hitting on the toilet. She was having significant pain in the low back area and also posterior pelvic area and bilateral knee pain. Patient was admitted to the hospital for further evaluation and treatment. The patient's pain was controlled with [place] and Dilaudid. The patient was seen by [facility] in consultation and x-ray of the knees showed advanced degenerative arthritis and the patient was started on physical therapy and the patient also was found to have chronic anemia. Dr. Byrnes saw the patient and the patient was and also placed her on folic acid and B12 and patient also expressed suicidal ideation and she has a history of severe depression. The patient also complained of major depression and psychiatric consultation was obtained. The patient was started on Lexapro and Minipress and apparently this morning the patient was still expressing suicidal ideation and psychiatrist was consulted for reevaluation for a possible transferring patient to the mental health unit, but the patient also was given a pharmacovigilance safety expert in the room. Otherwise, her vital signs were stable. No acute cardio or respiratory problems. Prognosis is guarded. MMODL / IJN: [id number] /
--- NOTE | 2017-04-23 15:44 | PN ---
PROGRESS NOTE DATE OF SERVICE: 04/23/2017 This is a 46-year-old female who was admitted with severe pain in her low back and also hip and also bilateral knee following a fall at home and in the bathroom hitting the toilet. Because of the severe pain she was admitted to the hospital for further evaluation and treatment. She was seen by [facility] in consultation and they started physical therapy. Her pain is being controlled with [place] and Dilaudid. The patient also had chronic anemia and evaluated by Dr. Byrnes. The patient was given parenteral iron and also started on folic acid and B12. Patient developed severe depression. She has a history of mixed severe mental depression. The patient was seen by Dr. Singer the psychiatrist and she was placed on Lexapro and Minipress. Apparently she showed some suicidal ideation yesterday and the patient was re-evaluated by psychiatrist, Dr. Torres. He put the patient does not have any suicidal ideation, intent, or plan and she is recommended to discontinue the mines safety engineer. We will continue Lexapro and Minipress. PLAN: If patient continues to be stable she will be transferred to [facility] planned possibly tomorrow. MMODL / IJN: [id number] /
[2017-04-23] MEDS: HYDROcodone/APAP 10-325MG 1 EACH TAB PO PRN ×2 (16:34→22:43)
[2017-04-23 19:07] LABS: Glucose,Whole Blood 170 mg/dL (75-99)
[2017-04-23] MEDS: PRAZOSIN 1 MG CAP PO SCH (22:23)
[2017-04-24] MEDS: ALPRAZolam 0.5 MG TAB PO PRN (07:33)
[2017-04-24] MEDS: FUROSEMIDE 20 MG TAB PO SCH (07:33)
[2017-04-24] MEDS: ETODOLAC 400 MG TAB PO SCH (07:33)
[2017-04-24] MEDS: HYDROcodone/APAP 10-325MG 1 EACH TAB PO PRN ×2 (07:33→12:32)
[2017-04-24] MEDS: GABAPENTIN 300 MG CAP PO SCH (07:33)
[2017-04-24] MEDS: ESCITALOPRAM 10 MG TAB PO SCH (07:34)
[2017-04-24] MEDS: SPIRONOLACTONE 25 MG TAB PO SCH (07:34)
[2017-04-24] MEDS: ALLOPURINOL 100 MG TAB PO SCH (07:34)
[2017-04-24] MEDS: FERROUS SULFATE 325 MG TAB PO SCH (07:34)
[2017-04-24] MEDS: POTASSIUM CHLORIDE ER 20 MEQ TAB.ER PO SCH (07:34)
[2017-04-24] MEDS: LEVOTHYROXINE 25 MCG TAB PO SCH (07:34)
[2017-04-24 07:41] VITALS: BP 123/68; PULSE 101; TEMP 97.4
[2017-04-24] MEDS: FOLIC ACID 1 MG TAB PO SCH (12:30)
[2017-04-24 15:13] VITALS: RESP 18
== END 2017-04-24 15:41 | disposition home health service (06) | DRG 552 ==
LOC: EC 17:27 → 4MS4W 23:40 → OBSVTOIN 04-16 16:41
PROVIDERS: ADMIT Internal Medicine; ATTEND Internal Medicine
DX: M51.37 Other intervertebral disc degeneration, lumbosacral region (principal); R45.851 Suicidal ideations; F32.2 Major depressive disorder, single episode, severe without psychotic features; Z68.44 Body mass index [BMI] 60.0-69.9, adult; D51.9 Vitamin B12 deficiency anemia, unspecified; I11.9 Hypertensive heart disease without heart failure; E66.01 Morbid (severe) obesity due to excess calories; D52.9 Folate deficiency anemia, unspecified; M17.0 Bilateral primary osteoarthritis of knee; M47.817 Spondylosis without myelopathy or radiculopathy, lumbosacral region; G89.29 Other chronic pain; E03.9 Hypothyroidism, unspecified; F41.9 Anxiety disorder, unspecified; F43.12 Post-traumatic stress disorder, chronic; I25.2 Old myocardial infarction; D50.9 Iron deficiency anemia, unspecified; K57.90 Diverticulosis of intestine, part unspecified, without perforation or abscess without bleeding; E79.0 Hyperuricemia without signs of inflammatory arthritis and tophaceous disease; Z79.899 Other long term (current) drug therapy; Z91.81 History of falling; Z88.5 Allergy status to narcotic agent; W01.0XXA Fall on same level from slipping, tripping and stumbling without subsequent striking against object, initial encounter; Y92.002 Bathroom of unspecified non-institutional (private) residence as the place of occurrence of the external cause
CPT/HCPCS: 36415; 71010; 72100; 72170; 80048; 80053; 82272; 82550; 82607; 82728; 82747; 83540; 83605; 83880; 83921; 84484; 84550; 85025; 85045; 85652; 86038; 86140; 86431; 93005; 93970; 99284

== ENCOUNTER 2017-08-02 03:00 | Inpatient (IN) | payer MEDICARE, OTHER ==
[2017-08-02] MEDS ORDERED: MORPHINE SULFATE 4 MG/ML SYRINGE IVP STA (03:23)
--- NOTE | 2017-08-02 03:24 | ED ---
General Adult HPI - General Source: patient, EMS, RN notes reviewed Mode of arrival: EMS Limitations: no limitations <Marco A Frye - Last Filed: 08/02/17 03:38> <Mana Jama - Last Filed: 08/02/17 07:37> - General Chief complaint: Fall Stated complaint: fall Time Seen by Provider: 08/02/17 03:06 - History of Present Illness Initial comments: Patient is a pleasant 47-year-old female presenting to the emergency Department with weakness. Patient had a fall 4 days ago. Patient has been on the ground since that time. Patient has moved along on the ground by holding herself up. Family did bring her food. Patient was unable to get up off of the ground. Patient fell because she was reaching for her walker and slipped. Patient has fallen previously however usually when she falls that is in the bathroom and it is easier to get up there. Patient complains of pain of both of her knees, more the left knee. No head injury or loss of consciousness. (Marco A Frye) - Related Data Home Medications Medication Instructions Recorded Confirmed Ferrous Sulfate [Iron (65 MG 325 mg PO DAILY 08/28/14 08/02/17 Elemental)] Gabapentin [Neurontin] 300 mg PO BID 08/28/14 08/02/17 Levothyroxine Sodium [Synthroid] 25 mcg PO DAILY 05/09/16 08/02/17 Spironolactone 50 mg PO BID 08/10/16 08/02/17 HYDROcodone/APAP 10-325MG [[place] 1 tab PO Q6H PRN 04/12/17 08/02/17 10-325] Allopurinol [Zyloprim] 200 mg PO DAILY 04/24/17 08/02/17 Escitalopram [Lexapro] 10 mg PO DAILY 04/24/17 08/02/17 Prazosin [Minipress] 1 mg PO HS 04/24/17 08/02/17 Cyclobenzaprine [Flexeril] 10 mg PO TID PRN 08/02/17 08/02/17 Diclofenac Sodium [Voltaren] 75 mg PO BID 08/02/17 08/02/17 Previous Rx's Medication Instructions Recorded ALPRAZolam [Xanax] 0.5 mg PO BID PRN #60 tablet 10/20/16 Diazepam [Valium] 5 mg PO HS #30 tab 10/20/16 Allergies Allergy/AdvReac Type Severity Reaction Status Date / Time oxycodone HCl [From Percocet] Allergy Rash/Hives Verified 08/02/17 07:19 procaine HCl [From Novocain] Allergy facial Verified 08/02/17 07:19 swelling Review of Systems ROS Other: All systems not noted in ROS Statement are negative. Constitutional: Denies: fever Eyes: Denies: eye pain ENT: Denies: ear pain Respiratory: Denies: cough Cardiovascular: Denies: chest pain Endocrine: Denies: fatigue Gastrointestinal: Denies: abdominal pain Genitourinary: Denies: dysuria Musculoskeletal: Denies: back pain Skin: Denies: rash Neurological: Reports: weakness <Marco A Frye - Last Filed: 08/02/17 03:38> ROS Other: All systems not noted in ROS Statement are negative. <Mana Jama - Last Filed: 08/02/17 07:37> ROS Statement: Those systems with pertinent positive or pertinent negative responses have been documented in the HPI. Past Medical History Past Medical History: Neurologic Disorder, Osteoarthritis (OA) Additional Past Medical History / Comment(s): chronic right leg wounds morbid obesity Last Myocardial Infarction Date:: 1989 History of Any Multi-Drug Resistant Organisms: None Reported Past Surgical History: Section, Tubal Ligation Additional Past Surgical History / Comment(s): colonoscopy Past Anesthesia/Blood Transfusion Reactions: No Reported Reaction Additional Past Anesthesia/Blood Transfusion Reaction / Comment(s): Pt has received blood in the past without reaction, once r/t childbirth and once due to anemia. Past Psychological History: Anxiety Smoking Status: Never smoker Past Alcohol Use History: Rare Past Drug Use History: None Reported - Past Family History Father History Unknown: Yes Additional Family Medical History / Comment(s): Pt was adopted and does not know parents/family medical hx. <Marco A Frye - Last Filed: 08/02/17 03:38> General Exam Limitations: no limitations General appearance: alert, in no apparent distress, obese Head exam: Present: atraumatic Eye exam: Present: normal appearance, PERRL ENT exam: Present: normal oropharynx Neck exam: Present: normal inspection, tenderness (Patient states there may be some mild tenderness to the cervical spine) Respiratory exam: Present: normal lung sounds bilaterally Cardiovascular Exam: Present: regular rate, normal rhythm GI/Abdominal exam: Present: soft. Absent: tenderness Extremities exam: Present: tenderness (Tenderness left greater than right knee.) Neurological exam: Present: alert, oriented X3, CN II-XII intact. Absent: motor sensory deficit Psychiatric exam: Present: normal affect, normal mood Skin exam: Present: normal color <Marco A Frye - Last Filed: 08/02/17 03:38> Course <Marco A Frye - Last Filed: 08/02/17 03:38> <Mana Jama - Last Filed: 08/02/17 07:37> Vital Signs 08/02/17 08/02/17 08/02/17 03:03 04:21 05:01 Temperature 98.3 F Pulse Rate 107 H 106 H Respiratory 28 H 20 Rate Blood Pressure 228/124 225/112 161/102 O2 Sat by Pulse 96 99 Oximetry Is reassessed at term 7:30, cervical spine her pelvis or bilateral knees and chest x-ray looked unremarkable labs are reviewed there is no rhabdomyolysis troponin is normal LABS look good, patient was examined she feels that she is not able to even go to the go just to the bathroom she is not quite at her baseline activity [place], she would benefit from some physical therapy, considering she is 203 kg and though she is very young she is unable to ambulate and she is quite compromise as far as embolus is concerning considering she has grater risk of fall and fractures were Hospital for physical therapy she be admitted under Dr. Fahad Watts (Mana Jama) EKG Findings - EKG Comments: EKG Findings:: Sinus tachycardia 109. CA 142. QRS 80. QT 354. QTC 476. Normal axis. Normal QRS. No acute ST change. <Marco A Frye - Last Filed: 08/02/17 03:38> Medical Decision Making - Lab Data Result diagrams: 08/02/17 05:23 08/02/17 05:23 <Mana Jama - Last Filed: 08/02/17 07:37> - Lab Data Lab Results 08/02/17 08/02/17 08/02/17 Range/Units 05:23 05:23 05:23 WBC 11.0 H (3.8-10.6) k/uL RBC 4.19 (3.80-5.40) m/uL Hgb 10.3 L (11.4-16.0) gm/dL Hct 35.3 (34.0-46.0) % MCV 84.2 (80.0-100.0) fL MCH 24.7 L (25.0-35.0) pg MCHC 29.3 L (31.0-37.0) g/dL RDW 15.5 (11.5-15.5) % Plt Count 428 (150-450) k/uL Neutrophils % 68 % Lymphocytes % 23 % Monocytes % 4 % Eosinophils % 4 % Basophils % 0 % Neutrophils # 7.5 (1.3-7.7) k/uL Lymphocytes # 2.5 (1.0-4.8) k/uL Monocytes # 0.4 (0-1.0) k/uL Eosinophils # 0.5 (0-0.7) k/uL Basophils # 0.0 (0-0.2) k/uL Hypochromasia Slight PT 9.9 (9.0-12.0) sec INR 1.0 (<1.2) APTT 23.7 (22.0-30.0) sec Sodium 140 (137-145) mmol/L Potassium 3.7 (3.5-5.1) mmol/L Chloride 99 (98-107) mmol/L Carbon Dioxide 34 H (22-30) mmol/L Anion Gap 7 mmol/L BUN 8 (7-17) mg/dL Creatinine 0.80 (0.52-1.04) mg/dL Est GFR (MDRD) Af Amer >60 (>60 ml/min/1.73 sqM) Est GFR (MDRD) Non-Af >60 (>60 ml/min/1.73 sqM) Glucose 114 H (74-99) mg/dL Calcium 9.2 (8.4-10.2) mg/dL Phosphorus 3.3 (2.5-4.5) mg/dL Magnesium 2.0 (1.6-2.3) mg/dL Total Bilirubin 0.3 (0.2-1.3) mg/dL AST 18 (14-36) U/L ALT 17 (9-52) U/L Alkaline Phosphatase 89 (38-126) U/L Total Creatine Kinase (30-135) U/L CK-MB (CK-2) (0.0-2.4) ng/mL CK-MB (CK-2) Rel Index Troponin I (0.000-0.034) ng/mL Total Protein 8.0 (6.3-8.2) g/dL Albumin 4.1 (3.5-5.0) g/dL 08/02/17 Range/Units 05:23 WBC (3.8-10.6) k/uL RBC (3.80-5.40) m/uL Hgb (11.4-16.0) gm/dL Hct (34.0-46.0) % MCV (80.0-100.0) fL MCH (25.0-35.0) pg MCHC (31.0-37.0) g/dL RDW (11.5-15.5) % Plt Count (150-450) k/uL Neutrophils % % Lymphocytes % % Monocytes % % Eosinophils % % Basophils % % Neutrophils # (1.3-7.7) k/uL Lymphocytes # (1.0-4.8) k/uL Monocytes # (0-1.0) k/uL Eosinophils # (0-0.7) k/uL Basophils # (0-0.2) k/uL Hypochromasia PT (9.0-12.0) sec INR (<1.2) APTT (22.0-30.0) sec Sodium (137-145) mmol/L Potassium (3.5-5.1) mmol/L Chloride (98-107) mmol/L Carbon Dioxide (22-30) mmol/L Anion Gap mmol/L BUN (7-17) mg/dL Creatinine (0.52-1.04) mg/dL Est GFR (MDRD) Af Amer (>60 ml/min/1.73 sqM) Est GFR (MDRD) Non-Af (>60 ml/min/1.73 sqM) Glucose (74-99) mg/dL Calcium (8.4-10.2) mg/dL Phosphorus (2.5-4.5) mg/dL Magnesium (1.6-2.3) mg/dL Total Bilirubin (0.2-1.3) mg/dL AST (14-36) U/L ALT (9-52) U/L Alkaline Phosphatase (38-126) U/L Total Creatine Kinase 245 H (30-135) U/L CK-MB (CK-2) 1.0 (0.0-2.4) ng/mL CK-MB (CK-2) Rel Index 0.4 Troponin I <0.012 (0.000-0.034) ng/mL Total Protein (6.3-8.2) g/dL Albumin (3.5-5.0) g/dL Disposition <Marco A Frye - Last Filed: 08/02/17 03:38> <Mana Jama - Last Filed: 08/02/17 07:37> Clinical Impression: Fall, Weakness Disposition: ADMITTED IP TO THIS HOSP Referrals: Pablito Vásquez MD [Primary Care Provider] - 1-2 days
--- NOTE | 2017-08-02 05:18 | XR ---
History: ITS.REASON XR Reason: Pain Exam: XR PELVIS 2 images Comparison: 04/12/2017 FINDINGS: Study is limited by technique and body habitus. No evidence of acute fracture or dislocation identified. Pubic symphysis appears unchanged. Bilateral hip degenerative changes again noted. IMPRESSION: Study is limited by technique and body habitus. No evidence of acute fracture or dislocation identified.
--- NOTE | 2017-08-02 05:20 | XR ---
History: ITS.REASON XR Reason: Weakness Exam: XR CXR 2 VIEWS Comparison: 04/12/17 FINDINGS: The lungs appear clear. The cardiac and mediastinal contours appear within limits. Visualized osseous structures appear within limits. IMPRESSION: No evidence of acute disease.
--- NOTE | 2017-08-02 05:25 | XR ---
History: ITS.REASON XR Reason: Pain Exam: XR C SPINE 6 images Comparison: None available FINDINGS: Study is limited by body habitus. The cervical spine is seen on the lateral view from the skull base to the top of C5. Otherwise no evidence of fracture or malalignment. No evidence of prevertebral swelling seen. IMPRESSION: Study is limited by body habitus. The cervical spine is seen on the lateral view from the skull base to the top of C5. Otherwise no evidence of fracture or malalignment.
--- NOTE | 2017-08-02 05:32 | XR ---
History: ITS.REASON XR Reason: Pain Exam: XR BILATERAL KNEES Comparison: 04/13/2017 FINDINGS: No evidence of fracture, dislocation or joint effusion. Tricompartmental severe appearing osteoarthrosis again noted. IMPRESSION: No evidence of fracture, dislocation or joint effusion. Tricompartmental severe appearing osteoarthrosis again noted.
[2017-08-02 05:41] LABS: Basophils % (A) 0 %; Eosinophils # (A) 0.5 k/uL (0-0.7); Eosinophils % (A) 4 %; HCT 35.3 % (34.0-46.0); HGB 10.3 gm/dL (11.4-16.0); Hypochromasia Slight; Lymphocytes # (A) 2.5 k/uL (1.0-4.8); Lymphocytes % (A) 23 %; MCH 24.7 pg (25.0-35.0); MCHC 29.3 g/dL (31.0-37.0); MCV 84.2 fL (80.0-100.0); Mean Platelet Volume 6.7; Monocytes # (A) 0.4 k/uL (0-1.0); Monocytes % (A) 4 %; Neutrophils # (A) 7.5 k/uL (1.3-7.7); Neutrophils % (A) 68 %; Platelet Count 428 k/uL (150-450); RBC 4.19 m/uL (3.80-5.40); RDW 15.5 % (11.5-15.5)
[2017-08-02 05:49] LABS: Partial Thromboplastin Time 23.7 sec (22.0-30.0); Prothrombin Time 9.9 sec (9.0-12.0)
[2017-08-02 05:51] LABS: ALT 17 U/L (9-52); AST 18 U/L (14-36); Albumin 4.1 g/dL (3.5-5.0); Alkaline Phosphatase 89 U/L (38-126); Anion Gap 7 mmol/L; Blood Urea Nitrogen 8 mg/dL (7-17); Calcium 9.2 mg/dL (8.4-10.2); Carbon Dioxide 34 mmol/L (22-30); Chloride 99 mmol/L (98-107); Glucose 114 mg/dL (74-99); Phosphorus 3.3 mg/dL (2.5-4.5); Potassium 3.7 mmol/L (3.5-5.1); Sodium 140 mmol/L (137-145); Total Bilirubin 0.3 mg/dL (0.2-1.3)
[2017-08-02 06:08] LABS: Creatine Kinase 245 U/L (30-135)
[2017-08-02 06:21] LABS: Troponin I <0.012 ng/mL (0.000-0.034)
[2017-08-02] MEDS ORDERED: NALOXONE 0.4 MG/ML 1 ML VIAL IV PRN (08:02)
[2017-08-02] MEDS ORDERED: ACETAMINOPHEN TAB 500 MG TAB PO PRN (08:02)
[2017-08-02] MEDS ORDERED: CYCLOBENZAPRINE 10 MG TAB PO PRN (08:08)
[2017-08-02] MEDS: HYDROcodone/APAP 10-325MG 1 EACH TAB PO PRN ×3 (08:55→21:59)
[2017-08-02] MEDS: GABAPENTIN 300 MG CAP PO SCH ×2 (09:05→21:57)
[2017-08-02] MEDS: LEVOTHYROXINE 25 MCG TAB PO SCH (09:06)
[2017-08-02] MEDS: SPIRONOLACTONE 25 MG TAB PO SCH ×2 (09:06→21:58)
[2017-08-02] MEDS: ETODOLAC 400 MG TAB PO SCH ×2 (09:06→21:57)
[2017-08-02] MEDS: FERROUS SULFATE 325 MG TAB PO SCH (09:08)
[2017-08-02] MEDS: ESCITALOPRAM 10 MG TAB PO SCH (09:08)
[2017-08-02] MEDS: ALLOPURINOL 100 MG TAB PO SCH (09:08)
--- NOTE | 2017-08-02 16:50 | HP ---
HISTORY AND PHYSICAL The patient was seen in the emergency room and room has not been assigned yet. CHIEF COMPLAINTS: Falling at home and inability to ambulate. HISTORY OF PRESENT ILLNESS: This is a 47-year-old female who is morbidly obese and has been having difficulty in ambulating because of the obesity and also because of back pain and bilateral knee pain and apparently she fell at home for about 4 days ago and she was trying to reach for the walker and she tripped and fell. She was not able to get up by herself and also family members were not able to lift her up and she was lying on the floor and she apparently has food and other care and was taken care of by the family, but she was not able to ambulate and get up from the floor and she was not improving. She was brought to the emergency room. In the ER, she was found to be extremely weak and not able to up from bed or move without any help. X-rays of pelvis and knee and cervical spine were all negative for any fracture or dislocation. The EKG showed a sinus tachycardia, otherwise within normal limits. CBC showed a WBC count of 11,000, hemoglobin 10.3, platelet count 428,000. Sodium 140, potassium 3.7, BUN 8 and creatinine 0.8, glucose 114. Her cardiac enzymes are within normal limits. As she was not able to ambulate or even getting up from bed without help, she was admitted to the hospital for further evaluation and treatment. PAST MEDICAL HISTORY: Reveals that she has morbid obesity and previously she was admitted to the hospital a few months ago and at that time she was recommended to go to rehab unit for improving her ambulation but she refused and went home and she also has a longstanding history of low back pain and arthritis and also has history of mental depression. During the previous hospitalization, patient was seen by a psychiatrist and also by the bariatric surgeon. CURRENT MEDICATIONS: 1. Include spironolactone 50 mg p.o. b.i.d. 2. Minipress 1 mg p.o. daily. 3. Synthroid 25 mcg g p.o. daily. 4. [place] 10/325 one q.6 hours p.r.n. 5. Neurontin 300 mg p.o. b.i.d. 6. Ferrous sulfate 325 mg p.o. daily. 7. Lexapro 10 mg daily. 8. Diazepam 5 mg daily q.h.s. 9. Flexeril 10 mg p.o. t.i.d. 10.Zyloprim 200 mg p.o. daily. 11.Xanax 0.5 mg p.o. b.i.d. p.r.n. ALLERGIES: SHE IS ALLERGIC TO OXYCODONE AND NOVOCAIN. SOCIAL HISTORY: She does not smoke and does not drink alcohol. FAMILY HISTORY: The patient is adopted and so detailed family history is not available. REVIEW OF SYMPTOMS: The system review reveals the patient denies any headache. Appetite has been good. Bowels are regular. She has no chest pain. She has no cough. She has no abdominal pain. She has severe back pain and knee pain. She has no polyuria or dysuria. She has no neurological symptoms. PHYSICAL EXAMINATION: Reveals a 47-year-old female who is morbidly obese with a weight around 203 kg and she is extremely weak and not able to sit up or get up from bed. She is alert and oriented. There is no jaundice. There is no generalized lymphadenopathy. No petechia or bruises. Pulse is 107 per minute and regular, temperature 98.3, blood pressure at the time of arrival 226/124, has come down better to 161/102. Examination of the ENT negative. NECK: Supple. There is no jugular venous distention. There is no goiter and no carotid bruit. Heart is in sinus tachycardia. Lungs revealed diminished breath sounds over both bases. Abdomen markedly obese. Examination of the lower extremities revealed marked obesity. Neurologic examination does not reveal localizing signs. IMPRESSION: 1. Fall and pain back, neck, and also both knees. 2. Inability to ambulate. 3. Morbid obesity with a weight about 203 kg. 4. Low back pain. 5. Hypothyroidism. 6. Chronic anemia. 7. Degenerative arthritis multiple joints. 8. Mental depression. PLAN: Patient will be admitted to the hospital. We will place her on her current medications and also we will get physical therapy to improve ambulation and also we will have social services manager see the patient for discharge planning. Prognosis is guarded. The diagnosis, prognosis and therapeutic plans were discussed in detail with the patient. MMODL / IJN: [id number] /
[2017-08-02] MEDS: PRAZOSIN 1 MG CAP PO SCH (21:57)
[2017-08-02] MEDS: DIAZEPAM 5 MG TAB PO SCH (21:57)
[2017-08-03] MEDS: LEVOTHYROXINE 25 MCG TAB PO SCH (06:12)
[2017-08-03] MEDS: HYDROcodone/APAP 10-325MG 1 EACH TAB PO PRN ×3 (06:13→21:22)
[2017-08-03] MEDS: ALLOPURINOL 100 MG TAB PO SCH (09:30)
[2017-08-03] MEDS: ETODOLAC 400 MG TAB PO SCH ×2 (09:30→21:05)
[2017-08-03] MEDS: ESCITALOPRAM 10 MG TAB PO SCH (09:30)
[2017-08-03] MEDS: GABAPENTIN 300 MG CAP PO SCH ×2 (09:30→21:07)
[2017-08-03] MEDS: FERROUS SULFATE 325 MG TAB PO SCH (09:30)
[2017-08-03] MEDS: SPIRONOLACTONE 25 MG TAB PO SCH ×2 (09:32→21:07)
[2017-08-03] MEDS: HYDROmorphone 0.5 MG/0.5 ML SYRINGE IVP PRN ×2 (17:04→23:53)
[2017-08-03] MEDS: DIAZEPAM 5 MG TAB PO SCH (21:05)
[2017-08-03] MEDS: PRAZOSIN 1 MG CAP PO SCH (21:05)
[2017-08-04] MEDS: HYDROcodone/APAP 10-325MG 1 EACH TAB PO PRN ×2 (04:32→11:23)
[2017-08-04] MEDS: LEVOTHYROXINE 25 MCG TAB PO SCH (06:38)
[2017-08-04] MEDS: HYDROmorphone 0.5 MG/0.5 ML SYRINGE IVP PRN (08:23)
[2017-08-04] MEDS: SPIRONOLACTONE 25 MG TAB PO SCH ×2 (08:26→20:45)
[2017-08-04] MEDS: ESCITALOPRAM 10 MG TAB PO SCH (08:27)
[2017-08-04] MEDS: GABAPENTIN 300 MG CAP PO SCH ×2 (08:27→20:45)
[2017-08-04] MEDS: ALLOPURINOL 100 MG TAB PO SCH (08:27)
[2017-08-04] MEDS: FERROUS SULFATE 325 MG TAB PO SCH (08:27)
[2017-08-04] MEDS: ETODOLAC 400 MG TAB PO SCH ×2 (08:27→20:43)
--- NOTE | 2017-08-04 10:34 | PN ---
PROGRESS NOTE DATE OF SERVICE: 08/03/2017 This is a 47-year-old female who has a long-standing history of extremely morbid obesity and back pain and knee pain and difficulty in ambulating. The patient was brought to the emergency room this time because she fell and was not able to get up from the floor and she was lying on the floor for 2 or 3 days, but she was getting help from the family for feeding and also for some other care. As the patient was not able to move, she was brought to the emergency room by the EMS for further evaluation and treatment. She was having severe back pain and hip pain and neck pain and all the x- rays were negative for any fracture or dislocation. Because the patient was absolutely not able to get up from the bed and ambulate, the patient was admitted to the hospital for further evaluation and treatment. The patient is also known to have mental depression and degenerative arthritis of multiple joints and she also has chronic anemia. She has seen a agronomy instructor in the past and they have been giving iron injections. The patient's vital signs are stable, but still extremely weak and not able to get out of the bed. Social Service is making discharge planning. We will continue current medications and will discharge the patient when arrangements are made. Overall prognosis is guarded. MMODL / IJN: [id number] /
--- NOTE | 2017-08-04 10:40 | PN ---
PROGRESS NOTE DATE OF SERVICE: 08/04/2017 This 47-year-old female who was admitted following a fall and with severe low back pain, hip pain and neck pain and inability to move because of the fall and also because of her morbid obesity. The patient's vital signs are stable, but still having severe pain and initially she was on [place], now she is also getting Dilaudid IV p.r.n. She has already been started on physical therapy. She denies any chest pain or shortness of breath. She is feeling a little stronger, but still not able to get up by herself from the bed. We will continue physical therapy and Social Service making arrangements for her to be transferred to rehab unit when discharged. Prognosis is guarded. The diagnosis, prognosis and therapeutic plans were discussed in detail with the patient today. MMHELENEL / IJN: [id number] /
[2017-08-04] MEDS: HYDROmorphone 4 MG TABLET PO PRN (14:45)
[2017-08-04] MEDS: PRAZOSIN 1 MG CAP PO SCH (20:46)
[2017-08-04] MEDS: DIAZEPAM 5 MG TAB PO SCH (20:46)
[2017-08-05] MEDS: ALPRAZolam 0.5 MG TAB PO PRN (02:03)
[2017-08-05] MEDS: HYDROmorphone 4 MG TABLET PO PRN ×2 (04:14→10:03)
[2017-08-05] MEDS: LEVOTHYROXINE 25 MCG TAB PO SCH (06:40)
[2017-08-05] MEDS: ESCITALOPRAM 10 MG TAB PO SCH (08:40)
[2017-08-05] MEDS: ALLOPURINOL 100 MG TAB PO SCH (08:40)
[2017-08-05] MEDS: FERROUS SULFATE 325 MG TAB PO SCH (08:41)
[2017-08-05] MEDS: GABAPENTIN 300 MG CAP PO SCH ×2 (08:41→21:07)
[2017-08-05] MEDS: ETODOLAC 400 MG TAB PO SCH ×2 (08:41→21:06)
[2017-08-05] MEDS: SPIRONOLACTONE 25 MG TAB PO SCH ×2 (08:41→21:06)
[2017-08-05] MEDS: HYDROcodone/APAP 10-325MG 1 EACH TAB PO PRN ×2 (08:43→15:42)
[2017-08-05] MEDS: METOPROLOL TARTRATE 25 MG TAB PO SCH (21:09)
[2017-08-06] MEDS: HYDROmorphone 4 MG TABLET PO PRN ×3 (00:26→20:23)
[2017-08-06] MEDS: DIAZEPAM 5 MG TAB PO SCH ×2 (00:34→21:08)
[2017-08-06] MEDS: ALPRAZolam 0.5 MG TAB PO PRN ×2 (03:23→09:29)
[2017-08-06] MEDS: HYDROcodone/APAP 10-325MG 1 EACH TAB PO PRN (05:58)
[2017-08-06] MEDS: LEVOTHYROXINE 25 MCG TAB PO SCH (07:00)
[2017-08-06] MEDS: ETODOLAC 400 MG TAB PO SCH ×2 (09:29→20:22)
[2017-08-06] MEDS: SPIRONOLACTONE 25 MG TAB PO SCH ×2 (09:29→20:23)
[2017-08-06] MEDS: ESCITALOPRAM 10 MG TAB PO SCH (09:30)
[2017-08-06] MEDS: ALLOPURINOL 100 MG TAB PO SCH (09:30)
[2017-08-06] MEDS: GABAPENTIN 300 MG CAP PO SCH ×2 (09:30→20:22)
[2017-08-06] MEDS: METOPROLOL TARTRATE 25 MG TAB PO SCH (09:30)
[2017-08-06] MEDS: FERROUS SULFATE 325 MG TAB PO SCH (09:30)
[2017-08-06 11:11] LABS: Appearance,Urine Clear (Clear); Bilirubin,Urine 1+ (Negative); Blood,Urine Negative (Negative); Color,Urine Light Yellow; Glucose,Urine (UA) Negative (Negative); Ketones,Urine Negative (Negative); Leukocyte Esterase,Urine Negative (Negative); Nitrite,Urine Negative (Negative); PH, Urine 7.5 (5.0-8.0); Protein,Urine Negative (Negative); Specific Gravity,Urine 1.007 (1.001-1.035); Urobilinogen,Urine <2.0 mg/dL (<2.0)
--- NOTE | 2017-08-06 12:03 | P.PN ---
Subjective Progress Note Date: 08/06/17 (Attending Dr. Pablito Vásquez.) Principal diagnosis: This is dictation on progress note date of service 08/06/2017. Attending physician Dr. Pablito Vásquez. Dictation by Dr. Hetal Mary [facility] covering for Dr. Pablito Vásquez on the weekend. Patient will be followed to make tomorrow by Dr. Pablito Vásquez. Patient seen today examination [id number] and reviewed her laboratories as well. Patient admitted to the hospital due to morbid obesity with a BMI 74.6 kg /m. And she was unable to carry her body and walk. She had significant sequelae with the morbid obesity as degenerative arthritis and severe eczema arthrosis with the pain in the joint mainly the knee and the spine as well as. And the hypertension was uncontrolled with the hypertensive heart disease added to tachycardia. On the exam: Conscious alert oriented sleeping on her side, with history of obesity will affect her pulmonary function could be resulted and pickwickian syndrome. HEENT the head was normocephalic and atraumatic she doesn't have dentures upper jaw. And the neck was supple, chest was clear to auscultation and percussion. Heart was regular sinus rhythm with the history of tachycardia which has been improved by using the beta yun which increased today to 50 mg twice a day as the 25 mg did not control the heart rate and the blood pressure yet tomorrow Dr. Vásquez will see the patient and if still tachycardic and hypertensive probably clonidine 0.1 mg at bedtime will be appropriate. Patient was started in the ER on alpha-yun which has been discontinued yesterday. Abdomen is soft positive bowel sounds morbidly obese could not palpate the organs. Extremities: She has a very large lower extremities and apparently she had chronic dermatitis of the lower extremities as well as lymphedema. Assessment: I received a call from [facility] and requesting to change the patient to normal regular admission with her current problem as well as she had the future rehabilitation probably in the skilled nursing and they also may add the lymphedema specialist. Hypertension uncontrolled currently medication adjusted with increase the beta yun., If the blood pressure is not well-controlled by the morning may add clonidine 0.1 mg at bedtime. Morbid obesity associated with comorbidity as axial degenerative arthritis THE joint and the spine and the shoulder and the tailbone. Chronic pain. She has a high risk of diabetes mellitus due to the obesity as well. Plan: We'll check CBGs as well as cover to scale if needed, we will obtain hemoglobin A1c in a.m. as well. Continue the current medication with the adjustment. Dr. Pablito Váqsuez will see the patient tomorrow Objective - Vital Signs Vital signs: Vital Signs Temp 97.0 F L 08/06/17 06:25 Pulse 93 08/06/17 09:37 Resp 16 08/06/17 09:37 BP 154/98 08/06/17 06:25 Pulse Ox 98 08/06/17 06:25 Intake & Output 08/05/17 08/06/17 08/06/17 18:59 06:59 18:59 Intake Total 960 Balance 960 Intake: Oral 960 Other: Voiding Method Bedside Commode Bedside Commode # Voids 4 2 1 - Labs CBC & Chem 7: 08/02/17 05:23 08/02/17 05:23 Labs: Abnormal Lab Results - Last 24 Hours (Table) 08/02/17 08/06/17 Range/Units 05:23 07:05 HDL Cholesterol 78 H (40-60) mg/dL Urine Bilirubin 1+ H (Negative)
[2017-08-06 12:35] LABS: Glucose,Whole Blood 132 mg/dL (75-99)
[2017-08-06] MEDS: INSULIN ASPART 100 UNIT/ML 1 ML 10 ML VIAL SQ SCH ×2 (13:04→17:59)
[2017-08-06 16:43] LABS: Glucose,Whole Blood 125 mg/dL (75-99)
[2017-08-06 20:07] LABS: Hemoglobin A1C 6.4 % (4.0-6.0)
[2017-08-06 21:04] LABS: Glucose,Whole Blood 119 mg/dL (75-99)
[2017-08-06] MEDS: METOPROLOL TARTRATE 50 MG TAB PO SCH (21:08)
--- NOTE | 2017-08-06 23:00 | PN ---
PROGRESS NOTE DATE OF SERVICE: 08/05/2017. HISTORY OF PRESENT ILLNESS: This is a 47-year-old female who is morbidly obese and she fell at home and was not able to get up from the floor by herself and because of the general extreme weakness and was combative and also because of morbid obesity and she was lying on the floor for 3-4 days and she was being taken care of by the family while she was lying on the floor, but she was not able to regain some strength and get up by herself and so she was brought to the emergency room by the ambulance. Her lab and x-rays were essentially negative and the patient was admitted to the hospital because of inability to ambulate and also because of her extreme general weakness. The patient also had a severe pain in the back and hip and neck, possibly due to the fall. The patient head was placed back on her previous home medications and for pain control she is getting [place] 10/325 one q.6 hours and the patient is still complaining of severe pain and she is going to be getting Dilaudid 1 mg IV q.6 hours p.r.n. for severe pain. Vital signs are stable, but she is still not able to get out of bed by herself and [facility] has been requested to make discharge arrangements and they are trying to place in a rehab unit when discharged. The prognosis is guarded. The diagnosis, prognosis and therapeutic plans were discussed in the detail with the patient today. SHARON / LULU: [id number] /
[2017-08-07] MEDS: HYDROcodone/APAP 10-325MG 1 EACH TAB PO PRN ×2 (05:17→22:36)
[2017-08-07] MEDS: LEVOTHYROXINE 25 MCG TAB PO SCH (06:26)
[2017-08-07] MEDS: HYDROmorphone 4 MG TABLET PO PRN ×2 (06:28→14:25)
[2017-08-07 07:06] LABS: Glucose,Whole Blood 91 mg/dL (75-99)
[2017-08-07] MEDS: INSULIN ASPART 100 UNIT/ML 1 ML 10 ML VIAL SQ SCH ×2 (07:16→12:39)
[2017-08-07] MEDS: ALLOPURINOL 100 MG TAB PO SCH (08:03)
[2017-08-07] MEDS: FERROUS SULFATE 325 MG TAB PO SCH (08:03)
[2017-08-07] MEDS: METOPROLOL TARTRATE 50 MG TAB PO SCH ×2 (08:03→20:22)
[2017-08-07] MEDS: ETODOLAC 400 MG TAB PO SCH ×2 (08:04→20:22)
[2017-08-07] MEDS: ESCITALOPRAM 10 MG TAB PO SCH (08:04)
[2017-08-07] MEDS: GABAPENTIN 300 MG CAP PO SCH ×2 (08:04→20:22)
[2017-08-07] MEDS: SPIRONOLACTONE 25 MG TAB PO SCH ×2 (08:04→20:23)
[2017-08-07 09:07] LABS: Basophils # (A) 0.1 k/uL (0-0.2); Basophils % (A) 1 %; Eosinophils # (A) 0.3 k/uL (0-0.7); Eosinophils % (A) 4 %; HCT 32.7 % (34.0-46.0); HGB 10.3 gm/dL (11.4-16.0); Hypochromasia Slight; Lymphocytes # (A) 2.5 k/uL (1.0-4.8); Lymphocytes % (A) 30 %; MCH 25.6 pg (25.0-35.0); MCHC 31.5 g/dL (31.0-37.0); MCV 81.2 fL (80.0-100.0); Mean Platelet Volume 7.1; Monocytes # (A) 0.6 k/uL (0-1.0); Monocytes % (A) 7 %; Neutrophils # (A) 4.8 k/uL (1.3-7.7); Neutrophils % (A) 58 %; Platelet Count 242 k/uL (150-450); RBC 4.03 m/uL (3.80-5.40); RDW 14.9 % (11.5-15.5); WBC 8.3 k/uL (3.8-10.6)
[2017-08-07 09:30] LABS: Anion Gap 8 mmol/L; Blood Urea Nitrogen 14 mg/dL (7-17); Calcium 9.3 mg/dL (8.4-10.2); Carbon Dioxide 29 mmol/L (22-30); Chloride 104 mmol/L (98-107); Glucose 94 mg/dL (74-99); Magnesium 1.8 mg/dL (1.6-2.3); Potassium 4.9 mmol/L (3.5-5.1); Sodium 141 mmol/L (137-145); Uric Acid 5.1 mg/dL (3.7-7.4)
[2017-08-07 11:52] LABS: Glucose,Whole Blood 112 mg/dL (75-99)
--- NOTE | 2017-08-07 14:05 | PN ---
PROGRESS NOTE DATE OF SERVICE: 08/07/2017 This is a 47-year-old female who is morbidly obese and had been having difficulty in ambulating because of the obesity and also because of back pain and bilateral knee pain, due to advanced degenerative arthritis. She was brought to the emergency room following a fall at home and inability to get up by herself and also inability to ambulate at home. She was lying on the floor for 3 to 4 days and she was being helped while lying on the floor by family for all feeding and for her other needs and care, but she continues to be extremely weak and not able to get up to the bed and she was brought to the emergency room by ambulance and she was found to be extremely weak and all the x-rays at that time, did not show any fracture or dislocation, and she was admitted to the hospital for further evaluation and treatment. Patient was started on physical therapy to improve her muscle stent and ambulation, and also she was placed back on her previous home medications and pain was controlled with [place] initially but as she continued to have severe pain, she was also given Dilaudid IV p.r.n. Patient did seems to be improving, but still extremely weak and not able to get out of the bed by herself. Because of the severe weakness and as she needs more physical therapy and rehabilitation, arrangements are being made for her to be transferred to rehab unit in possibly [facility] and prognosis is guarded. Accordingly, she will be discharged and transferred to [facility] rehab unit possibly tomorrow. MMFRAN / LULU: [id number] /
--- NOTE | 2017-08-07 14:53 | CDI ---
Last Revision, May 2017 Documentation Clarification Form Date: 08/07/2017 2:29:00 PM From: Claire Joe RN, CCDS Admit Date: 08/03/2017 11:41:00 AM Patient Name: Shireen Cotton Visit Number: [id number] Discharge Date: ATTENTION: The Clinical Documentation Specialists (CDI) and [facility] Coding Staff appreciate your assistance in clarifying documentation. Please respond to the clarification below the line at the bottom and electronically sign. The CDI & [facility] Coding staff will review the response and follow-up if needed. Please note: Queries are made part of the Legal Health Record. If you have any questions, please contact the author of this message via ITS. Dr. Pablito Vásquez 08/07/17 progress notes has difficulty in ambulating because of obesity, back pain, bilateral knee pain, due to advanced degenerative arthritis Patient history/risk factors: Morbid Obesity, Osteoarthritis, Chronic right leg wounds Clinical Indicators: 47 year old female was laying on the floor for 3-4 days unable to get up by herself and inability to ambulate. She complaints of being extremely weak. VS on admission 228/124 107 28 98.3 Lab findings: WBC 11.0 Chest x-ray: negative Bilateral Knee x-ray: negative for fracture. Tricompartmental severe appearing osteoarthrosis Cervical spine x-ray: no evidence of fracture or misalignment Treatment: Physical Therapy consults creative services coordinator for discharge planning In your professional opinion, can you further clarify degenerative arthritis ( osteoarthritis)? and specify site (s) Erosive Generalized Primary Secondary Other, please specify Unable to determine Please continue to document in your progress notes and discharge summary in order to capture severity of illness and risk of mortality. Include clinical findings that support your diagnosis. MTDD
--- NOTE | 2017-08-07 14:56 | DS ---
DISCHARGE SUMMARY DISCHARGE DIAGNOSES: 1. Fall and severe pain in the back, neck, and also both knees. 2. Inability to ambulate. 3. Morbid obesity with a weight about 203 kg. 4. Low back pain. 5. Hypothyroidism. 6. Chronic anemia. 7. Degenerative arthritis of multiple joints. 8. Mental depression. HISTORY OF PRESENT ILLNESS: This is a 47-year-old female who is morbidly obese and she has been having difficulty in ambulating because of the obesity and also because of back pain and bilateral knee pain due to degenerative arthritis. She apparently fell at home about 4 days prior to admission, she was trying to reach her walker and then she tripped and fell. She was not able to get up by herself and also family members were not able to lift her up because she was lying on the floor. She was apparently brought by ambulance to the emergency room. In the ER, she was found to be extremely weak and not able to move or get up from bed without help. X-ray of the pelvis and knee and also cervical spine were all negative for any fracture or dislocation. EKG showed sinus tachycardia, otherwise within normal limits. CBC showed WBC count of 11,000, hemoglobin 10.3, platelet count 428,000. Sodium 140. Potassium 3.7, BUN 8, and creatinine 0.8. Blood sugar was 114. Her cardiac enzymes were within normal limits. As she was not able to ambulate or even get up from bed without help, she was admitted to the hospital for further evaluation and treatment. For details of the physical examination at the time of admission, please refer to the history and physical. HOSPITAL COURSE: The patient was placed back on her previous home medications and she was started on physical therapy to improve her muscle strength and ambulation. In the ER her blood pressure was elevated and she was also placed on Lopressor. The patient's pain was controlled initially with [place], but she was still was complaining of very severe pain and started on Dilaudid IV p.r.n. for pain control. As the patient still continued to be unable to ambulate and get up from bed or move around, the patient was not able to go home on discharge. [employer] Developer made arrangements for her to transferred to [facility] for rehab and also for physical therapy and occupational therapy. Accordingly, she will be discharged on 08/08/2017. She will be transferred to [facility] rehab unit. She will continue physical therapy and occupational therapy there and also she will continue on with the following medications. MEDICATIONS: 1. Tylenol 1000 mg p.o. every 6 hours p.r.n. 2. [place] 10/325 one every 6 hours p.r.n. 3. Allopurinol 200 mg p.o. daily. 4. Xanax 0.5 mg p.o. b.i.d. p.r.n. for anxiety. 5. Flexeril 10 mg p.o. t.i.d. p.r.n. for muscle spasms. 6. Valium 5 mg p.o. daily. 7. Lexapro 10 mg p.o. daily. 8. Voltaren 75 mg p.o. b.i.d. 9. Ferrous sulfate 325 mg p.o. daily. 10.Gabapentin 300 mg p.o. b.i.d. 11.Synthroid 225 mcg p.o. daily. 12.Lopressor 50 mg p.o. b.i.d. 13.Spironolactone 50 mg p.o. b.i.d. FOLLOWUP: The patient will be followed by me in the group home for her medical problems. MMODL / IJN: [id number] /
[2017-08-07] MEDS: DIAZEPAM 5 MG TAB PO SCH (20:24)
[2017-08-08] MEDS: HYDROmorphone 4 MG TABLET PO PRN ×2 (03:55→10:38)
[2017-08-08] MEDS: LEVOTHYROXINE 25 MCG TAB PO SCH (06:20)
[2017-08-08] MEDS: HYDROcodone/APAP 10-325MG 1 EACH TAB PO PRN ×2 (06:22→20:27)
[2017-08-08] MEDS: METOPROLOL TARTRATE 50 MG TAB PO SCH ×2 (07:50→20:27)
[2017-08-08] MEDS: FERROUS SULFATE 325 MG TAB PO SCH (07:50)
[2017-08-08] MEDS: ESCITALOPRAM 10 MG TAB PO SCH (07:51)
[2017-08-08] MEDS: GABAPENTIN 300 MG CAP PO SCH ×2 (07:51→20:27)
[2017-08-08] MEDS: ALLOPURINOL 100 MG TAB PO SCH (07:51)
[2017-08-08] MEDS: SPIRONOLACTONE 25 MG TAB PO SCH ×2 (07:51→20:27)
[2017-08-08] MEDS: ETODOLAC 400 MG TAB PO SCH ×2 (07:52→20:27)
[2017-08-08] MEDS: ALPRAZolam 0.5 MG TAB PO PRN (07:53)
--- NOTE | 2017-08-08 11:23 | CDI ---
Last Revision, May 2017 Documentation Clarification Form Date: 08/08/2017 10:36:00 AM From: Claire Joe RN, CCDS Admit Date: 08/03/2017 11:41:00 AM Patient Name: Shireen Cotton Visit Number: [id number] Discharge Date: ATTENTION: The Clinical Documentation Specialists (CDI) and [facility] Coding Staff appreciate your assistance in clarifying documentation. Please respond to the clarification below the line at the bottom and electronically sign. The CDI & [facility] Coding staff will review the response and follow-up if needed. Please note: Queries are made part of the Legal Health Record. If you have any questions, please contact the author of this message via ITS. Dr. Pablito Vásquez Patient history/risk factors: Hypertension with Hypertensive heart disease, Osteoarthritis, Morbid obesity BMI 74.6 Clinical Indicators: Present with weakness and fall, unable to get up. She is having difficulty ambulating because of the obesity, back pain and bilateral knee pain. Vital Signs on admission: 228/124, 107 28 , 225/112 106 20 , 161/102 EKG Sinus tachycardia at 109 08/06/17 progress note: Hypertension was uncontrolled, with hypertensive heart disease Treatment: Lopressor PO Aldactone PO In your professional opinion, can you please clarify if the clinical indicators and treatment is? Hypertensive Crisis Hypertensive Urgency Other, please specify _ Unable to determine Please continue to document in your progress notes and discharge summary in order to capture severity of illness and risk of mortality. Include clinical findings that support your diagnosis. MTDD
[2017-08-08] MEDS: DIAZEPAM 5 MG TAB PO SCH (20:27)
[2017-08-09] MEDS: HYDROcodone/APAP 10-325MG 1 EACH TAB PO PRN ×2 (03:52→15:20)
[2017-08-09] MEDS: LEVOTHYROXINE 25 MCG TAB PO SCH (06:42)
[2017-08-09] MEDS: ALLOPURINOL 100 MG TAB PO SCH (08:11)
[2017-08-09] MEDS: ETODOLAC 400 MG TAB PO SCH ×2 (08:11→21:56)
[2017-08-09] MEDS: ESCITALOPRAM 10 MG TAB PO SCH (08:11)
[2017-08-09] MEDS: GABAPENTIN 300 MG CAP PO SCH ×2 (08:12→21:56)
[2017-08-09] MEDS: METOPROLOL TARTRATE 50 MG TAB PO SCH ×2 (08:12→21:57)
[2017-08-09] MEDS: FERROUS SULFATE 325 MG TAB PO SCH (08:12)
[2017-08-09] MEDS: SPIRONOLACTONE 25 MG TAB PO SCH ×2 (08:12→21:57)
[2017-08-09] MEDS: HYDROmorphone 4 MG TABLET PO PRN (08:20)
[2017-08-09] MEDS: ALPRAZolam 0.5 MG TAB PO PRN (16:05)
[2017-08-09] MEDS: DIAZEPAM 5 MG TAB PO SCH (21:56)
[2017-08-10] MEDS: HYDROmorphone 4 MG TABLET PO PRN ×2 (00:47→17:33)
[2017-08-10] MEDS: LEVOTHYROXINE 25 MCG TAB PO SCH (06:23)
[2017-08-10] MEDS: ETODOLAC 400 MG TAB PO SCH ×2 (09:20→21:26)
[2017-08-10] MEDS: ESCITALOPRAM 10 MG TAB PO SCH (09:20)
[2017-08-10] MEDS: ALLOPURINOL 100 MG TAB PO SCH (09:20)
[2017-08-10] MEDS: SPIRONOLACTONE 25 MG TAB PO SCH ×2 (09:21→21:28)
[2017-08-10] MEDS: FERROUS SULFATE 325 MG TAB PO SCH (09:21)
[2017-08-10] MEDS: GABAPENTIN 300 MG CAP PO SCH ×2 (09:21→21:27)
[2017-08-10] MEDS: METOPROLOL TARTRATE 50 MG TAB PO SCH ×2 (09:21→21:28)
[2017-08-10] MEDS: ALPRAZolam 0.5 MG TAB PO PRN (11:06)
[2017-08-10 14:46] VITALS: BMI 74.5
[2017-08-10] MEDS: DIAZEPAM 5 MG TAB PO SCH (21:26)
[2017-08-10] MEDS: HYDROcodone/APAP 10-325MG 1 EACH TAB PO PRN (21:28)
[2017-08-11] MEDS: LEVOTHYROXINE 25 MCG TAB PO SCH (08:25)
[2017-08-11] MEDS: ETODOLAC 400 MG TAB PO SCH ×2 (08:25→20:36)
[2017-08-11] MEDS: FERROUS SULFATE 325 MG TAB PO SCH (08:25)
[2017-08-11] MEDS: ESCITALOPRAM 10 MG TAB PO SCH (08:25)
[2017-08-11] MEDS: SPIRONOLACTONE 25 MG TAB PO SCH ×2 (08:25→20:38)
[2017-08-11] MEDS: METOPROLOL TARTRATE 50 MG TAB PO SCH ×2 (08:25→20:38)
[2017-08-11] MEDS: ALLOPURINOL 100 MG TAB PO SCH (08:25)
[2017-08-11] MEDS: GABAPENTIN 300 MG CAP PO SCH ×2 (08:25→20:38)
[2017-08-11] MEDS: HYDROcodone/APAP 10-325MG 1 EACH TAB PO PRN (08:28)
--- NOTE | 2017-08-11 12:30 | PN ---
PROGRESS NOTE DATE OF SERVICE: 08/11/2017 HISTORY OF PRESENT ILLNESS: This is a 47-year-old female who is morbidly obese and she was admitted to the hospital through the emergency room as she fell and was unable to get up by herself because of general weakness and extremely morbid obesity. Also she was having pain in the back, hip and the knees. In the ER, x-rays are okay without any acute dislocation or fracture. The patient was given physical therapy and her strength was slightly improved and in the meantime, arrangements were made for her to be transferred to [facility] Rehab Unit. The patient is currently discharged on 08/08/2017. Apparently, the [facility] did not have a room that day. The social service tried to get her into the [facility] and the patient had a room there and apparently the patient refused to go there and she to the insurance for allowing a few more days of hospital stay. The patient is still not willing to go to [facility] and she is still waiting for the final decision from the insurance. I have seen the patient on the 08/09/2017 and 08/10/2017 and 08/11/2017 and I checked the patient medically and there is no significant change. There is no acute cardiorespiratory problems and the patient will continue the current medications and as soon as the arrangements are made for the transfer, she will be transferred to the appropriate fpc. SHARON / LULU: [id number] /
[2017-08-11] MEDS: ALPRAZolam 0.5 MG TAB PO PRN (13:17)
[2017-08-11] MEDS: DIAZEPAM 5 MG TAB PO SCH (20:36)
[2017-08-12] MEDS: HYDROcodone/APAP 10-325MG 1 EACH TAB PO PRN ×3 (03:33→15:43)
[2017-08-12] MEDS: LEVOTHYROXINE 25 MCG TAB PO SCH (06:29)
[2017-08-12] MEDS: GABAPENTIN 300 MG CAP PO SCH ×2 (08:25→21:44)
[2017-08-12] MEDS: ETODOLAC 400 MG TAB PO SCH ×2 (08:25→21:44)
[2017-08-12] MEDS: METOPROLOL TARTRATE 50 MG TAB PO SCH ×2 (08:26→21:44)
[2017-08-12] MEDS: ESCITALOPRAM 10 MG TAB PO SCH (08:26)
[2017-08-12] MEDS: SPIRONOLACTONE 25 MG TAB PO SCH ×2 (08:26→21:46)
[2017-08-12] MEDS: ALLOPURINOL 100 MG TAB PO SCH (08:26)
[2017-08-12] MEDS: FERROUS SULFATE 325 MG TAB PO SCH (08:26)
[2017-08-12] MEDS: ALPRAZolam 0.5 MG TAB PO PRN (15:42)
[2017-08-12] MEDS: DIAZEPAM 5 MG TAB PO SCH (21:44)
[2017-08-13] MEDS: HYDROcodone/APAP 10-325MG 1 EACH TAB PO PRN ×3 (05:02→19:20)
[2017-08-13] MEDS: LEVOTHYROXINE 25 MCG TAB PO SCH (06:23)
[2017-08-13] MEDS: ALLOPURINOL 100 MG TAB PO SCH (07:53)
[2017-08-13] MEDS: GABAPENTIN 300 MG CAP PO SCH ×2 (07:53→20:52)
[2017-08-13] MEDS: ETODOLAC 400 MG TAB PO SCH ×2 (07:53→20:52)
[2017-08-13] MEDS: FERROUS SULFATE 325 MG TAB PO SCH (07:53)
[2017-08-13] MEDS: ESCITALOPRAM 10 MG TAB PO SCH (07:53)
[2017-08-13] MEDS: SPIRONOLACTONE 25 MG TAB PO SCH ×2 (07:54→20:53)
[2017-08-13] MEDS: METOPROLOL TARTRATE 50 MG TAB PO SCH ×2 (07:54→20:53)
[2017-08-13] MEDS: DIAZEPAM 5 MG TAB PO SCH (20:54)
[2017-08-14] MEDS: LEVOTHYROXINE 25 MCG TAB PO SCH (06:59)
[2017-08-14 08:35] VITALS: BP 132/83; PULSE 91; RESP 20; TEMP 98.1
[2017-08-14] MEDS: ETODOLAC 400 MG TAB PO SCH (09:52)
[2017-08-14] MEDS: SPIRONOLACTONE 25 MG TAB PO SCH (09:52)
[2017-08-14] MEDS: ESCITALOPRAM 10 MG TAB PO SCH (09:52)
[2017-08-14] MEDS: GABAPENTIN 300 MG CAP PO SCH (09:52)
[2017-08-14] MEDS: ALLOPURINOL 100 MG TAB PO SCH (09:53)
[2017-08-14] MEDS: FERROUS SULFATE 325 MG TAB PO SCH (09:53)
[2017-08-14] MEDS: METOPROLOL TARTRATE 50 MG TAB PO SCH (09:53)
--- NOTE | 2017-08-16 15:21 | CDI ---
Last Revision, May 2017 Documentation Clarification Form Date: 08/08/2017 10:36:00 AM From: Claire Joe RN, CCDS Admit Date: 08/03/2017 11:41:00 AM Patient Name: Shireen Cotton Visit Number: [id number] Discharge Date: ATTENTION: The Clinical Documentation Specialists (CDI) and [facility] Coding Staff appreciate your assistance in clarifying documentation. Please respond to the clarification below the line at the bottom and electronically sign. The CDI & [facility] Coding staff will review the response and follow-up if needed. Please note: Queries are made part of the Legal Health Record. If you have any questions, please contact the author of this message via ITS. Dr. Pablito Vásquez Patient history/risk factors: Hypertension with Hypertensive heart disease, Osteoarthritis, Morbid obesity BMI 74.6 Clinical Indicators: Present with weakness and fall, unable to get up. She is having difficulty ambulating because of the obesity, back pain and bilateral knee pain. Vital Signs on admission : 228/124, 107 28 , 225/112 106 20 , 161/102 EKG Sinus tachycardia at 109 08/06/17 progress note: Hypertension was uncontrolled, with hypertensive heart disease Treatment: Lopressor PO Aldactone PO In your professional opinion, can you please clarify if the clinical indicators and treatment is? Hypertensive Crisis Hypertensive Urgency Other, please specify _ Unable to determine Please continue to document in your progress notes and discharge summary in order to capture severity of illness and risk of mortality. Include clinical findings that support your diagnosis. MTDD
--- NOTE | 2017-08-16 15:26 | CDI ---
Last Revision, May 2017 Documentation Clarification Form Date: 08/07/2017 2:29:00 PM From: Claire Joe RN, CCDS Admit Date: 08/03/2017 11:41:00 AM Patient Name: Shireen Cotton Visit Number: [id number] Discharge Date: ATTENTION: The Clinical Documentation Specialists (CDI) and [facility] Coding Staff appreciate your assistance in clarifying documentation. Please respond to the clarification below the line at the bottom and electronically sign. The CDI & [facility] Coding staff will review the response and follow-up if needed. Please note: Queries are made part of the Legal Health Record. If you have any questions, please contact the author of this message via ITS. Dr. Pablito Vásquez 08/07/17 progress notes has difficulty in ambulating because of obesity, back pain, bilateral knee pain, due to advanced degenerative arthritis Patient history/risk factors: Morbid Obesity, Osteoarthritis, Chronic right leg wounds Clinical Indicators: 47 year old female was laying on the floor for 3-4 days unable to get up by herself and inablilty to ambulate. Her complaints of being extremely weak. VS on admission 228/124 107 28 98.3 Lab findings: WBC 11.0 Chest x-ray: negative Bilateral Knee x-ray: negative for fracture. Tricompartmental severe appearing osteoarthrosis Cervical spine x-ray: no evidence of fracture or malalignment Treatment: Physical Therapy consult and participate. In your professional opinion, can you further clarify degenerative arthritis ( osteoarthritis)? and specify site (s) Erosive Generalized Primary Secondary Other, please specify Unable to determine Please continue to document in your progress notes and discharge summary in order to capture severity of illness and risk of mortality. Include clinical findings that support your diagnosis. MTDD
== END 2017-08-14 12:20 | DRG 552 ==
LOC: EC 03:00 → 5MS5E 08:07 → 4MS4W 16:17 → OBSVTOIN 08-03 11:41
PROVIDERS: ADMIT Internal Medicine; ATTEND Internal Medicine
DX: M54.5 Low back pain (principal); E66.01 Morbid (severe) obesity due to excess calories; I11.9 Hypertensive heart disease without heart failure; Z68.45 Body mass index [BMI] 70 or greater, adult; D64.9 Anemia, unspecified; E03.9 Hypothyroidism, unspecified; F32.9 Major depressive disorder, single episode, unspecified; G89.29 Other chronic pain; I25.2 Old myocardial infarction; I89.0 Lymphedema, not elsewhere classified; L30.9 Dermatitis, unspecified; M15.9 Polyosteoarthritis, unspecified; F41.9 Anxiety disorder, unspecified; R26.2 Difficulty in walking, not elsewhere classified; Z79.899 Other long term (current) drug therapy; Z88.5 Allergy status to narcotic agent; Z88.8 Allergy status to other drugs, medicaments and biological substances; W01.0XXA Fall on same level from slipping, tripping and stumbling without subsequent striking against object, initial encounter; Y92.009 Unspecified place in unspecified non-institutional (private) residence as the place of occurrence of the external cause
CPT/HCPCS: 36415; 71046; 72050; 72170; 80048; 80053; 80061; 81003; 82550; 82553; 83036; 83735; 84100; 84443; 84484; 84550; 85025; 85610; 85730; 93005; 96374; 99285

== ENCOUNTER 2017-11-05 01:25 | Emergency (ER) | payer MEDICARE, OTHER ==
[2017-11-05 01:32] VITALS: RESP 20
[2017-11-05] MEDS ORDERED: MORPHINE SULFATE 4 MG/ML SYRINGE IV STA (02:38)
[2017-11-05] MEDS ORDERED: SODIUM CHLORIDE 0.9% 500 ML IV STA (02:38)
--- NOTE | 2017-11-05 03:29 | ED ---
Weakness HPI - General Chief complaint: Weakness Stated complaint: Weakness Time Seen by Provider: 11/05/17 01:27 Source: patient Mode of arrival: EMS Limitations: physical limitation - History of Present Illness Initial comments: 47-year-old female patient presents to emergency department today for complaints of generalized weakness and left-sided chest pain. Patient states that she experienced a fall a couple of months ago and has been having issues with her left knee since. Patient states over the last few days she has had an increase in the knee pain. Patient states she is unable to ambulate through her house related to this. Patient states over the last 4-5 days she has becoming progressively more weak. Patient states that she is unable to get out of bed. She states that she is also having sharp left-sided chest pain. Patient states that she has had this pain on and off for the last 2 years. Patient states that usually is related to her anxiety however she took her Xanax and it did not improve her symptoms. Patient is reporting mild nausea with this as well. Patient denies any recent rash, fever, chills, abdominal pain , back pain, numbness, tingling, dizziness, hematuria, dysuria, urinary urgency , urinary frequency, headache, visual changes, or any other complaints. - Related Data Home Medications Medication Instructions Recorded Confirmed Ferrous Sulfate [Iron (65 MG 325 mg PO DAILY 08/28/14 11/05/17 Elemental)] Gabapentin [Neurontin] 300 mg PO BID 08/28/14 11/05/17 Levothyroxine Sodium [Synthroid] 25 mcg PO DAILY 05/09/16 11/05/17 Spironolactone 50 mg PO BID 08/10/16 11/05/17 HYDROcodone/APAP 10-325MG [[place] 1 tab PO Q6H PRN 04/12/17 11/05/17 10-325] Allopurinol [Zyloprim] 200 mg PO DAILY 04/24/17 11/05/17 Escitalopram [Lexapro] 10 mg PO DAILY 04/24/17 11/05/17 Prazosin [Minipress] 1 mg PO HS 04/24/17 11/05/17 Cyclobenzaprine [Flexeril] 10 mg PO TID PRN 08/02/17 11/05/17 Diclofenac Sodium [Voltaren] 75 mg PO BID 08/02/17 11/05/17 Previous Rx's Medication Instructions Recorded ALPRAZolam [Xanax] 0.5 mg PO BID PRN #60 tablet 10/20/16 Diazepam [Valium] 5 mg PO HS #30 tab 10/20/16 Allergies Allergy/AdvReac Type Severity Reaction Status Date / Time oxycodone HCl [From Percocet] Allergy Rash/Hives Verified 11/05/17 01:32 procaine HCl [From Novocain] Allergy facial Verified 11/05/17 01:32 swelling Review of Systems ROS Statement: Those systems with pertinent positive or pertinent negative responses have been documented in the HPI. ROS Other: All systems not noted in ROS Statement are negative. Past Medical History Past Medical History: GERD/Reflux, GI Bleed, Myocardial Infarction ([place]), Osteoarthritis (OA), Renal Disease, Syncope Additional Past Medical History / Comment(s): Obesity, weakness-ambulates with walker, numbness/tingling bilateral feet, chronic r leg wound/cellulitis currently healed, lower leg edema, chronic low back pain with sciatica, tail bone fracture, migraines, pt states she had toxemia with 1st and had a [place], bilateral tinnitis occasionally, bronchitis, sinus problems, gout bilateral feet, carpal tunnel syndrome bilateral wrists, hypothyoid, HTN but only with anxiety, colitis, IBS, chron's, diverticular dx, occasional low blood sugar, nephrolithiasis-pt passed on her own, chronic anemia, lower GI bleed, UTIs. Last Myocardial Infarction Date:: 1989 History of Any Multi-Drug Resistant Organisms: None Reported Past Surgical History: Section, Tubal Ligation Additional Past Surgical History / Comment(s): colonoscopy Past Anesthesia/Blood Transfusion Reactions: No Reported Reaction Additional Past Anesthesia/Blood Transfusion Reaction / Comment(s): Pt has received blood in the past and had itching, has had another transfusion since with no reaction. Past Psychological History: Anxiety Smoking Status: Never smoker Past Alcohol Use History: None Reported Past Drug Use History: None Reported - Past Family History Father History Unknown: Yes Additional Family Medical History / Comment(s): Pt was adopted and does not know parents/family medical hx. General Exam Limitations: physical limitation General appearance: alert, in no apparent distress, other (This is a well- developed, morbidly obese female patient in mild distress related to pain. Vital signs upon presentation are temperature 99.2F, pulse 105, respirations 20 , blood pressure 166/105, pulse ox 98% on room air.) Eye exam: Present: normal appearance, PERRL, EOMI. Absent: scleral icterus, conjunctival injection, periorbital swelling ENT exam: Present: normal exam, normal oropharynx, mucous membranes moist Respiratory exam: Present: normal lung sounds bilaterally. Absent: respiratory distress, wheezes, rales, rhonchi, stridor Cardiovascular Exam: Present: normal rhythm, tachycardia, normal heart sounds. Absent: systolic murmur, diastolic murmur, rubs, gallop, clicks GI/Abdominal exam: Present: soft, normal bowel sounds. Absent: distended, tenderness, guarding, rebound, rigid Extremities exam: Present: normal inspection, full ROM, normal capillary refill , other (Patient has left knee crepitus. Skin is warm and dry. Pedal pulses 2 + and equal bilaterally.). Absent: tenderness, pedal edema (pedal), joint swelling, calf tenderness Neurological exam: Present: alert, oriented X3, CN II-XII intact Psychiatric exam: Present: normal affect, normal mood Skin exam: Present: warm, dry, intact, normal color. Absent: rash Course Vital Signs 11/05/17 11/05/17 11/05/17 01:29 04:09 05:17 Temperature 99.2 F 98.3 F Pulse Rate 105 H 94 91 Respiratory 20 20 20 Rate Blood Pressure 166/105 185/103 164/95 O2 Sat by Pulse 98 100 100 Oximetry EKG Findings - EKG Comments: EKG Findings:: EKG obtained at 02 54 shows normal sinus rhythm with a ventricular rate of 97, UT interval 146, QRS duration 92, QT 362, QTc 459. No evidence of ST elevation or depression. Medical Decision Making - Medical Decision Making 47-year-old female patient presented to the emergency department today for evaluation of weakness, left-sided chest pain, and left knee pain. Patient reported that her weakness is due to increased pain to the knee. She also reports his left-sided chest pain is chronic and usually resolved with Xanax. Physical examination is relatively unremarkable. There is some crepitus to the knee. Lungs are equal and clear bilaterally. EKG shows normal sinus rhythm. Labs reviewed and are unremarkable. Troponin negative. X-ray of the left knee shows advanced arthritis. Chest x-ray is clear. I did discuss results with the patient and informed her she'll be discharged home to follow-up with her primary care physician of her chronic issues. Patient is unhappy with the discharge. I reviewed results with her and discussed importance of follow up. We discussed weight loss at length. Return parameters discussed in detail. - Lab Data Result diagrams: 11/05/17 03:16 11/05/17 03:16 Lab Results 11/05/17 11/05/17 11/05/17 Range/Units 03:16 03:16 03:16 WBC 11.6 H (3.8-10.6) k/uL RBC 4.52 (3.80-5.40) m/uL Hgb 11.5 (11.4-16.0) gm/dL Hct 35.2 (34.0-46.0) % MCV 77.9 L (80.0-100.0) fL MCH 25.4 (25.0-35.0) pg MCHC 32.6 (31.0-37.0) g/dL RDW 15.6 H (11.5-15.5) % Plt Count 291 (150-450) k/uL Neutrophils % 62 % Lymphocytes % 28 % Monocytes % 6 % Eosinophils % 3 % Basophils % 0 % Neutrophils # 7.2 (1.3-7.7) k/uL Lymphocytes # 3.2 (1.0-4.8) k/uL Monocytes # 0.7 (0-1.0) k/uL Eosinophils # 0.3 (0-0.7) k/uL Basophils # 0.0 (0-0.2) k/uL Microcytosis Slight Sodium 142 (137-145) mmol/L Potassium 4.6 (3.5-5.1) mmol/L Chloride 104 (98-107) mmol/L Carbon Dioxide 25 (22-30) mmol/L Anion Gap 13 mmol/L BUN 9 (7-17) mg/dL Creatinine 0.70 (0.52-1.04) mg/dL Est GFR (CKD-EPI)AfAm >90 (>60 ml/min/1.73 sqM) Est GFR (CKD-EPI)NonAf >90 (>60 ml/min/1.73 sqM) Glucose 102 H (74-99) mg/dL Calcium 8.9 (8.4-10.2) mg/dL Magnesium 1.8 (1.6-2.3) mg/dL Total Bilirubin 0.6 (0.2-1.3) mg/dL AST 17 (14-36) U/L ALT 19 (9-52) U/L Alkaline Phosphatase 81 (38-126) U/L Total Creatine Kinase 103 (30-135) U/L CK-MB (CK-2) <0.2 (0.0-2.4) ng/mL CK-MB (CK-2) Rel Index Troponin I <0.012 (0.000-0.034) ng/mL Total Protein 7.2 (6.3-8.2) g/dL Albumin 3.8 (3.5-5.0) g/dL - Radiology Data Radiology results: report reviewed, image reviewed 3 views of the left knee are obtained. There is moderately severe narrowing at the joint spaces. There is extensive spurring of the femoral and tibial condyles. There is spurring of the patella. I see no fracture. There is slight lateral tibial subluxation. Impression by Dr. Bernardo shows advanced are still arthritic changes. No fracture seen. No significant change compared to old exam. Two-view x-ray of the chest is obtained. There is no heart failure nor confluent pneumonic infiltrate. Costophrenic angles are clear. There are chest leads. Bony thorax is intact. Impression by Dr. Bernardo shows no active cardiopulmonary disease. No change. Normal heart. Disposition Clinical Impression: Anxiety, Osteoarthritis of left knee, Chest pain Disposition: HOME SELF-CARE Condition: Good Instructions: Chest Pain (ED), Osteoarthritis (ED), Anxiety (ED) Additional Instructions: Follow-up with your primary care physician and your manager residential for recheck as soon as possible. Return here immediately for any new, worsening, or concerning symptoms. Is patient prescribed a controlled substance at d/c from ED?: No Referrals: Pablito Vásquez MD [Primary Care Provider] - 1-2 days Time of Disposition: 04:39
[2017-11-05 03:44] LABS: ALT 19 U/L (9-52); AST 17 U/L (14-36); Albumin 3.8 g/dL (3.5-5.0); Alkaline Phosphatase 81 U/L (38-126); Anion Gap 13 mmol/L; Blood Urea Nitrogen 9 mg/dL (7-17); Calcium 8.9 mg/dL (8.4-10.2); Carbon Dioxide 25 mmol/L (22-30); Chloride 104 mmol/L (98-107); Glucose 102 mg/dL (74-99); Magnesium 1.8 mg/dL (1.6-2.3); Potassium 4.6 mmol/L (3.5-5.1); Sodium 142 mmol/L (137-145); Total Bilirubin 0.6 mg/dL (0.2-1.3); Total Protein 7.2 g/dL (6.3-8.2)
[2017-11-05 03:48] LABS: Basophils % (A) 0 %; Eosinophils # (A) 0.3 k/uL (0-0.7); Eosinophils % (A) 3 %; HCT 35.2 % (34.0-46.0); HGB 11.5 gm/dL (11.4-16.0); Lymphocytes # (A) 3.2 k/uL (1.0-4.8); Lymphocytes % (A) 28 %; MCH 25.4 pg (25.0-35.0); MCHC 32.6 g/dL (31.0-37.0); MCV 77.9 fL (80.0-100.0); Mean Platelet Volume 7.7; Microcytosis Slight; Monocytes # (A) 0.7 k/uL (0-1.0); Monocytes % (A) 6 %; Neutrophils # (A) 7.2 k/uL (1.3-7.7); Neutrophils % (A) 62 %; Platelet Count 291 k/uL (150-450); RBC 4.52 m/uL (3.80-5.40); RDW 15.6 % (11.5-15.5); WBC 11.6 k/uL (3.8-10.6)
[2017-11-05 03:58] LABS: Creatine Kinase 103 U/L (30-135)
[2017-11-05 04:11] LABS: Creatine Kinase MB <0.2 ng/mL (0.0-2.4); Troponin I <0.012 ng/mL (0.000-0.034)
[2017-11-05 04:13] VITALS: TEMP 98.3
--- NOTE | 2017-11-05 04:16 | XR ---
EXAMINATION TYPE: XR knee complete LT DATE OF EXAM: 11/05/2017 COMPARISON: 08/02/2017 HISTORY: Knee pain TECHNIQUE: 3 views FINDINGS: There is moderately severe narrowing of the joint spaces. There is extensive spurring of th e femoral and tibial condyles. There is spurring of the patella. I see no fracture. There is slight l ateral tibial subluxation. IMPRESSION: Advanced osteoarthritic changes. No fracture seen. No significant change compared to old exam.
--- NOTE | 2017-11-05 04:17 | XR ---
EXAMINATION TYPE: XR chest 2V DATE OF EXAM: 11/05/2017 COMPARISON: 08/02/2017 HISTORY: Weakness TECHNIQUE: Frontal and lateral views of the chest are obtained. FINDINGS: There is no heart failure nor confluent pneumonic infiltrate. Costophrenic angles are nehemias r. There are chest leads. Bony thorax is intact. IMPRESSION: No active cardiopulmonary disease. No change. Normal heart.
[2017-11-05 05:17] VITALS: BP 164/95; PULSE 91
== END 2017-11-05 05:57 | disposition home or self-care (01) ==
LOC: EC 01:25
DX: F41.9 Anxiety disorder, unspecified (principal); M17.12 Unilateral primary osteoarthritis, left knee; K21.9 Gastro-esophageal reflux disease without esophagitis; I25.2 Old myocardial infarction; M10.9 Gout, unspecified; E03.9 Hypothyroidism, unspecified; I10 Essential (primary) hypertension; D64.9 Anemia, unspecified; E66.9 Obesity, unspecified; Z68.45 Body mass index [BMI] 70 or greater, adult; Z79.1 Long term (current) use of non-steroidal anti-inflammatories (NSAID); Z79.899 Other long term (current) drug therapy; Z88.5 Allergy status to narcotic agent; Z88.4 Allergy status to anesthetic agent
CPT/HCPCS: 36415; 93005; 80053; 82550; 82553; 83735; 84484; 85025; 73562; 71046; 99285; 96374; J2270

== ENCOUNTER 2017-12-01 12:39 | Inpatient (IN) | payer MEDICARE, OTHER ==
[2017-12-01] MEDS ORDERED: SODIUM CHLORIDE 0.9% 1,000 ML IV STA (13:28)
[2017-12-01] MEDS ORDERED: LORazepam 2 MG/ML INJ IV STA (13:28)
--- NOTE | 2017-12-01 13:31 | ED ---
General Adult HPI - General Chief complaint: Extremity Injury, Lower Stated complaint: Muscle spasms Time Seen by Provider: 12/01/17 13:07 Source: patient, RN notes reviewed Mode of arrival: EMS Limitations: physical limitation - History of Present Illness Initial comments: Patient is a pleasant 47-year-old female presenting to the emergency Department with muscle spasms. Patient states she has chronic left knee pain since a fall back in April. Patient has had previous x-rays and refuses further x-rays. Patient states she is having muscle spasms all over her body, more so in her legs, more so left leg. Patient states it is difficult for her to get around and ambulate. Patient states she does have frequent falls. Patient states usually falls around one time per week. - Related Data Home Medications Medication Instructions Recorded Confirmed Ferrous Sulfate [Iron (65 MG 325 mg PO DAILY 08/28/14 12/01/17 Elemental)] Gabapentin [Neurontin] 300 mg PO BID 08/28/14 12/01/17 Levothyroxine Sodium [Synthroid] 25 mcg PO DAILY 05/09/16 12/01/17 Spironolactone 50 mg PO BID 08/10/16 12/01/17 HYDROcodone/APAP 10-325MG [[place] 1 tab PO Q6H PRN 04/12/17 12/01/17 10-325] Allopurinol [Zyloprim] 200 mg PO DAILY 04/24/17 12/01/17 Escitalopram [Lexapro] 10 mg PO DAILY 04/24/17 12/01/17 Prazosin [Minipress] 1 mg PO HS 04/24/17 12/01/17 Cyclobenzaprine [Flexeril] 10 mg PO TID 08/02/17 12/01/17 Diclofenac Sodium [Voltaren] 75 mg PO BID 08/02/17 12/01/17 Azo Bladder Control 1 tab PO BID 12/01/17 12/01/17 Folic Acid 1 mg PO DAILY 12/01/17 12/01/17 Metoprolol Tartrate [Lopressor] 50 mg PO BID 12/01/17 12/01/17 Potassium Chloride ER [K-Dur 20] 20 meq PO BID 12/01/17 12/01/17 Previous Rx's Medication Instructions Recorded ALPRAZolam [Xanax] 0.5 mg PO BID PRN #60 tablet 10/20/16 Allergies Allergy/AdvReac Type Severity Reaction Status Date / Time oxycodone HCl [From Percocet] Allergy Rash/Hives Verified 12/01/17 13:12 procaine HCl [From Novocain] Allergy facial Verified 12/01/17 13:12 swelling Review of Systems ROS Statement: Those systems with pertinent positive or pertinent negative responses have been documented in the HPI. ROS Other: All systems not noted in ROS Statement are negative. Constitutional: Denies: fever Eyes: Denies: eye pain ENT: Denies: ear pain Respiratory: Denies: cough Cardiovascular: Denies: chest pain Endocrine: Denies: fatigue Gastrointestinal: Denies: abdominal pain Genitourinary: Denies: dysuria Musculoskeletal: Reports: arthralgia Skin: Denies: rash Neurological: Denies: headache Past Medical History Past Medical History: GERD/Reflux, GI Bleed, Myocardial Infarction ([place]), Osteoarthritis (OA), Renal Disease, Syncope Additional Past Medical History / Comment(s): Obesity, weakness-ambulates with walker, numbness/tingling bilateral feet, chronic r leg wound/cellulitis currently healed, lower leg edema, chronic low back pain with sciatica, tail bone fracture, migraines, pt states she had toxemia with 1st and had a ND, bilateral tinnitis occasionally, bronchitis, sinus problems, gout bilateral feet, carpal tunnel syndrome bilateral wrists, hypothyoid, HTN but only with anxiety, colitis, IBS, chron's, diverticular dx, occasional low blood sugar, nephrolithiasis-pt passed on her own, chronic anemia, lower GI bleed, UTIs. Last Myocardial Infarction Date:: 1989 History of Any Multi-Drug Resistant Organisms: None Reported Past Surgical History: Section, Tubal Ligation Additional Past Surgical History / Comment(s): colonoscopy Past Anesthesia/Blood Transfusion Reactions: No Reported Reaction Additional Past Anesthesia/Blood Transfusion Reaction / Comment(s): Pt has received blood in the past and had itching, has had another transfusion since with no reaction. Past Psychological History: Anxiety Smoking Status: Never smoker Past Alcohol Use History: None Reported Past Drug Use History: None Reported - Past Family History Father History Unknown: Yes Additional Family Medical History / Comment(s): Pt was adopted and does not know parents/family medical hx. General Exam Limitations: physical limitation General appearance: alert, anxious, obese Head exam: Present: atraumatic Eye exam: Present: normal appearance Respiratory exam: Present: normal lung sounds bilaterally Cardiovascular Exam: Present: regular rate, normal rhythm GI/Abdominal exam: Present: soft. Absent: tenderness Extremities exam: Present: tenderness (Left knee), other (Chronic lymphedema bilateral) Neurological exam: Present: alert. Absent: motor sensory deficit Psychiatric exam: Present: anxious Skin exam: Present: normal color Course Vital Signs 12/01/17 12/01/17 12:41 15:25 Temperature 97.4 F L Pulse Rate 92 94 Respiratory 20 18 Rate Blood Pressure 187/87 168/90 O2 Sat by Pulse 99 100 Oximetry Medical Decision Making - Medical Decision Making Patient reevaluated and somewhat improved with Ativan. Patient states she is not able to function at home. Patient states she is not able to get out of bed and has been defecating on herself. EMS did call Adult Protective Services. Case was discussed in detail with Dr. Vásquez, who states this is no longer his patient. He states patient has been discontinued from his service secondary to noncompliance. Case was then discussed with Dr. Neville, who will admit for hospital call. - Lab Data Result diagrams: 12/01/17 14:42 12/01/17 14:42 Lab Results 12/01/17 12/01/17 Range/Units 14:42 14:42 WBC 9.0 (3.8-10.6) k/uL RBC 3.98 (3.80-5.40) m/uL Hgb 10.1 L (11.4-16.0) gm/dL Hct 31.4 L (34.0-46.0) % MCV 79.0 L (80.0-100.0) fL MCH 25.4 (25.0-35.0) pg MCHC 32.2 (31.0-37.0) g/dL RDW 15.8 H (11.5-15.5) % Plt Count 350 (150-450) k/uL Neutrophils % 64 % Lymphocytes % 27 % Monocytes % 5 % Eosinophils % 2 % Basophils % 0 % Neutrophils # 5.7 (1.3-7.7) k/uL Lymphocytes # 2.4 (1.0-4.8) k/uL Monocytes # 0.5 (0-1.0) k/uL Eosinophils # 0.2 (0-0.7) k/uL Basophils # 0.0 (0-0.2) k/uL Sodium 142 (137-145) mmol/L Potassium 3.9 (3.5-5.1) mmol/L Chloride 102 (98-107) mmol/L Carbon Dioxide 30 (22-30) mmol/L Anion Gap 10 mmol/L BUN 7 (7-17) mg/dL Creatinine 0.67 (0.52-1.04) mg/dL Est GFR (CKD-EPI)AfAm >90 (>60 ml/min/1.73 sqM) Est GFR (CKD-EPI)NonAf >90 (>60 ml/min/1.73 sqM) Glucose 107 H (74-99) mg/dL Calcium 8.7 (8.4-10.2) mg/dL Magnesium 1.7 (1.6-2.3) mg/dL Total Bilirubin 0.4 (0.2-1.3) mg/dL AST 14 (14-36) U/L ALT 24 (9-52) U/L Alkaline Phosphatase 81 (38-126) U/L Total Protein 6.7 (6.3-8.2) g/dL Albumin 3.7 (3.5-5.0) g/dL Disposition Clinical Impression: Impaired gait, Knee pain, bilateral, Weakness Disposition: ADMITTED IP TO THIS HOSP Is patient prescribed a controlled substance at d/c from ED?: No Decision Time: 17:04
[2017-12-01 15:07] LABS: ALT 24 U/L (9-52); AST 14 U/L (14-36); Albumin 3.7 g/dL (3.5-5.0); Alkaline Phosphatase 81 U/L (38-126); Anion Gap 10 mmol/L; Blood Urea Nitrogen 7 mg/dL (7-17); Calcium 8.7 mg/dL (8.4-10.2); Carbon Dioxide 30 mmol/L (22-30); Chloride 102 mmol/L (98-107); Glucose 107 mg/dL (74-99); Magnesium 1.7 mg/dL (1.6-2.3); Potassium 3.9 mmol/L (3.5-5.1); Sodium 142 mmol/L (137-145); Total Bilirubin 0.4 mg/dL (0.2-1.3); Total Protein 6.7 g/dL (6.3-8.2)
[2017-12-01 15:15] LABS: Basophils % (A) 0 %; Eosinophils # (A) 0.2 k/uL (0-0.7); Eosinophils % (A) 2 %; HCT 31.4 % (34.0-46.0); HGB 10.1 gm/dL (11.4-16.0); Lymphocytes # (A) 2.4 k/uL (1.0-4.8); Lymphocytes % (A) 27 %; MCH 25.4 pg (25.0-35.0); MCHC 32.2 g/dL (31.0-37.0); Mean Platelet Volume 6.2; Monocytes # (A) 0.5 k/uL (0-1.0); Monocytes % (A) 5 %; Neutrophils # (A) 5.7 k/uL (1.3-7.7); Neutrophils % (A) 64 %; Platelet Count 350 k/uL (150-450); RBC 3.98 m/uL (3.80-5.40); RDW 15.8 % (11.5-15.5)
[2017-12-01] MEDS ORDERED: NALOXONE 0.4 MG/ML 1 ML VIAL IV PRN ×2 (17:04→17:44)
[2017-12-01] MEDS ORDERED: ACETAMINOPHEN TAB 325 MG TAB PO PRN (17:44)
[2017-12-01] MEDS ORDERED: ONDANSETRON 4 MG/2 ML VIAL IVP PRN (17:44)
--- NOTE | 2017-12-01 18:03 | P.HPIM ---
History of Present Illness H&P Date: 12/01/17 Chief Complaint: Weakness This is a 47-year-old -[place] female admitted to the hospital for weakness that has been going for the last few days the patient according to her not being able to ambulate has been in bed for the last few days because of generalized pain and weakness more weakness in the left lower extremity and knee pain Patient is a morbidly obese female who has been in rehab for similar symptoms in the past States that she has been falling frequently in the last several months and since she was admitted to the rehab she continued to be weak and getting worse Is not complaining of any chest pain or shortness of breath at this time Review of systems and systems has been reviewed all negative and positive findings as per HPI Past Medical History: GERD/Reflux, GI Bleed, Myocardial Infarction ([place]), Osteoarthritis (OA), Renal Disease, Syncope Additional Past Medical History / Comment(s): Obesity, weakness-ambulates with walker, numbness/tingling bilateral feet, chronic r leg wound/cellulitis currently healed, lower leg edema, chronic low back pain with sciatica, tail bone fracture, migraines, pt states she had toxemia with 1st and had a NC, bilateral tinnitis occasionally, bronchitis, sinus problems, gout bilateral feet, carpal tunnel syndrome bilateral wrists, hypothyoid, HTN but only with anxiety, colitis, IBS, chron's, diverticular dx, occasional low blood sugar, nephrolithiasis-pt passed on her own, chronic anemia, lower GI bleed, UTIs. Last Myocardial Infarction Date:: 1989 History of Any Multi-Drug Resistant Organisms: None Reported Past Surgical History: Section, Tubal Ligation Additional Past Surgical History / Comment(s): colonoscopy Past Anesthesia/Blood Transfusion Reactions: No Reported Reaction Additional Past Anesthesia/Blood Transfusion Reaction / Comment(s): Pt has received blood in the past and had itching, has had another transfusion since with no reaction. Past Psychological History: Anxiety Smoking Status: Never smoker Past Alcohol Use History: None Reported Past Drug Use History: None Reported - Past Family History Father History Unknown: Yes Additional Family Medical History / Comment(s): Pt was adopted and does not know parents/family medical hx. Constitutional: No acute distress, conversant, pleasant Eyes: Anicteric sclerae, moist conjunctiva, no lid-lag PERRLA ENMT: Cranial nerves grossly intact Neck: Supple, FROM, no masses, or JVD No carotid bruits No thyromegaly Lungs: Clear to auscultation Clear to percussion Normal respiratory effort, no accessory muscle use Cardiovascular: Heart regular in rate and rhythm, No murmurs, gallops, or rubs No peripheral edema Abdominal: Soft Nontender, no guarding, Skin: Normal temperature, tone, texture, turgor No induration No subcutaneous nodules No rash, lesions No ulcers Extremities: No digital cyanosis No clubbing Pedal pulses intact and symmetrical Radial pulses intact and symmetrical Normal gait and station No calf tenderness Psychiatric:Alert and oriented to person, place and time Appropriate affect Intact judgement Neuro: Generalized weakness and question about 4/5 weakness in the left lower extremity Assessment and plan weakness in the left lower extremity that has been gone for the last several days or more We will check computed tomography scan of the brain we will also consult neurology Morbid obesity Generalized weakness the patient likely needs to be in the rehab Knee pain left knee pain we also has been consulted x-rays has been ordered DVT and GI prophylaxis Anxiety Pain control Recurrent falls and weakness likely due to the morbid obesity Past Medical History Past Medical History: GERD/Reflux, GI Bleed, Myocardial Infarction (NC), Osteoarthritis (OA), Renal Disease, Syncope Additional Past Medical History / Comment(s): Obesity, weakness-ambulates with walker, numbness/tingling bilateral feet, chronic r leg wound/cellulitis currently healed, lower leg edema, chronic low back pain with sciatica, tail bone fracture, migraines, pt states she had toxemia with 1st and had a NC, bilateral tinnitis occasionally, bronchitis, sinus problems, gout bilateral feet, carpal tunnel syndrome bilateral wrists, hypothyoid, HTN but only with anxiety, colitis, IBS, chron's, diverticular dx, occasional low blood sugar, nephrolithiasis-pt passed on her own, chronic anemia, lower GI bleed, UTIs. Last Myocardial Infarction Date:: 1989 History of Any Multi-Drug Resistant Organisms: None Reported Past Surgical History: Section, Tubal Ligation Additional Past Surgical History / Comment(s): colonoscopy Past Anesthesia/Blood Transfusion Reactions: No Reported Reaction Additional Past Anesthesia/Blood Transfusion Reaction / Comment(s): Pt has received blood in the past and had itching, has had another transfusion since with no reaction. Past Psychological History: Anxiety Smoking Status: Never smoker Past Alcohol Use History: None Reported Past Drug Use History: None Reported - Past Family History Father History Unknown: Yes Additional Family Medical History / Comment(s): Pt was adopted and does not know parents/family medical hx. Medications and Allergies Home Medications Medication Instructions Recorded Confirmed Type Ferrous Sulfate [Iron (65 MG 325 mg PO DAILY 08/28/14 12/01/17 History Elemental)] Gabapentin [Neurontin] 300 mg PO BID 08/28/14 12/01/17 History Levothyroxine Sodium [Synthroid] 25 mcg PO DAILY 05/09/16 12/01/17 History Spironolactone 50 mg PO BID 08/10/16 12/01/17 History ALPRAZolam [Xanax] 0.5 mg PO BID PRN #60 tablet 10/20/16 12/01/17 Rx HYDROcodone/APAP 10-325MG [[place] 1 tab PO Q6H PRN 04/12/17 12/01/17 History 10-325] Allopurinol [Zyloprim] 200 mg PO DAILY 04/24/17 12/01/17 History Escitalopram [Lexapro] 10 mg PO DAILY 04/24/17 12/01/17 History Prazosin [Minipress] 1 mg PO HS 04/24/17 12/01/17 History Cyclobenzaprine [Flexeril] 10 mg PO TID 08/02/17 12/01/17 History Diclofenac Sodium [Voltaren] 75 mg PO BID 08/02/17 12/01/17 History Azo Bladder Control 1 tab PO BID 12/01/17 12/01/17 History Folic Acid 1 mg PO DAILY 12/01/17 12/01/17 History Metoprolol Tartrate [Lopressor] 50 mg PO BID 12/01/17 12/01/17 History Potassium Chloride ER [K-Dur 20] 20 meq PO BID 12/01/17 12/01/17 History Allergies Allergy/AdvReac Type Severity Reaction Status Date / Time oxycodone HCl [From Percocet] Allergy Rash/Hives Verified 12/01/17 13:12 procaine HCl [From Novocain] Allergy facial Verified 12/01/17 13:12 swelling Physical Exam Vitals: Vital Signs Temp Pulse Resp BP Pulse Ox 12/01/17 15:25 94 18 168/90 100 12/01/17 12:41 97.4 F L 92 20 187/87 99 Intake and Output 12/01/17 12/01/17 12/01/17 06:59 14:59 22:59 Other: Weight 188.241 kg Results CBC & Chem 7: 12/01/17 14:42 12/01/17 14:42 Labs: Abnormal Lab Results - Last 24 Hours (Table) 12/01/17 12/01/17 Range/Units 14:42 14:42 Hgb 10.1 L (11.4-16.0) gm/dL Hct 31.4 L (34.0-46.0) % MCV 79.0 L (80.0-100.0) fL RDW 15.8 H (11.5-15.5) % Glucose 107 H (74-99) mg/dL
--- NOTE | 2017-12-01 18:35 | XR ---
EXAMINATION TYPE: XR knee complete bilateral DATE OF EXAM: 12/01/2017 COMPARISON: Left knee 11/05/2017 HISTORY: Bilateral knee pain TECHNIQUE: 3 views each knee FINDINGS: There is moderate narrowing of the medial joint spaces of both knees with extensive spurrin g of the femoral and tibial condyles. There is right side genu valgus. There is left-sided mild genu varus. There is moderate spurring at the patellofemoral joint. I see no fracture. IMPRESSION: Moderately severe bilateral osteoarthritis. No fracture. Left knee is stable compared to old exam.
[2017-12-01 18:44] LABS: Creatine Kinase MB 0.4 ng/mL (0.0-2.4)
--- NOTE | 2017-12-01 18:46 | CT ---
EXAMINATION TYPE: CT brain wo con DATE OF EXAM: 12/01/2017 COMPARISON: 08/16/2011 HISTORY: Weakness. CT DLP: 988.2 mGycm. Automated Exposure Control for Dose Reduction was Utilized. TECHNIQUE: CT scan of the head is performed without contrast. FINDINGS: Ventricles and sulci appear normal. There is no mass effect nor midline shift. There is no sign of intracranial hemorrhage. The calvarium appears intact. IMPRESSION: Negative CT scan of the brain. No change.
[2017-12-01] MEDS: GABAPENTIN 300 MG CAP PO SCH (20:25)
[2017-12-01] MEDS: PRAZOSIN 1 MG CAP PO SCH (20:25)
[2017-12-01] MEDS: METOPROLOL TARTRATE 50 MG TAB PO SCH (20:26)
[2017-12-01] MEDS: CYCLOBENZAPRINE 10 MG TAB PO SCH (20:26)
[2017-12-01] MEDS: SODIUM CHLORIDE 0.9% 1,000 ML IV SCH (20:26)
[2017-12-01] MEDS: SPIRONOLACTONE 25 MG TAB PO SCH (20:26)
[2017-12-01] MEDS: HYDROcodone/APAP 10-325MG 1 EACH TAB PO PRN (20:43)
[2017-12-01] MEDS: ALPRAZolam 0.5 MG TAB PO PRN (20:46)
--- NOTE | 2017-12-01 21:04 | P.CNOR ---
History of Present Illness - HPI Consult date: 12/01/17 Consult reason: joint pain History of present illness: This a 47-year-old female who was recently admitted to [facility] with regards to weakness, inability ambulate and multiple falls. She had a recent visit back in October 2017 for the same reason. She is severely morbid obese , she has multiple medical comorbidities and is followed by an internal medicine doctor in the outpatient setting. After being admitted to the hospital, patient states she's had chronic bilateral knee pain, but the left knee has worsened over the last month or so. She admits to multiple recent falls. She denies any previous surgery involving the left knee at this time. She denies any recent fever or chills. At bedside, she is resting comfortably. She has a very hard time moving the bilateral lower extremities. She noticed more the pain over the anterior aspect of the knee. She notes similar discomfort in the right knee, the left being worse at this time. She denies any new onset groin pain bilaterally, foot or ankle pain, upper extremity discomfort, new onset cervical thoracic or lumbar pain. Review of Systems Constitutional: Reports as per HPI Past Medical History Past Medical History: GERD/Reflux, GI Bleed, Myocardial Infarction ([place]), Osteoarthritis (OA), Renal Disease, Syncope Additional Past Medical History / Comment(s): previously charted pt had renal disease-pt unaware of thisObesity, weakness-bedridden for few weeks now, numbness/tingling bilateral feet, chronic phil leg wound/cellulitis currently healed,previous rt leg ulcers now healed, lower leg edema, chronic low back pain with sciatica, tail bone fracture, migraines, pt states she had toxemia with 1st and had a MA, bilateral tinnitis occasionally, bronchitis, sinus problems, gout bilateral feet, carpal tunnel syndrome bilateral wrists, hypothyoid, HTN but only with anxiety, colitis, IBS, chron's, diverticular dx, occasional low blood sugar, nephrolithiasis-pt passed on her own, chronic anemia , lower GI bleed, UTIs."sickle cell" Last Myocardial Infarction Date:: 1989 History of Any Multi-Drug Resistant Organisms: None Reported Past Surgical History: Section, Tubal Ligation Additional Past Surgical History / Comment(s): colonoscopy, 4 c-sections Past Anesthesia/Blood Transfusion Reactions: No Reported Reaction Additional Past Anesthesia/Blood Transfusion Reaction / Comm: Pt has received blood in the past and had itching, has had another transfusion since with no reaction. Smoking Status: Never smoker - Past Family History Father History Unknown: Yes Additional Family Medical History / Comment(s): Pt was adopted and does not know parents/family medical hx. Medications and Allergies Home Medications Medication Instructions Recorded Confirmed Type Ferrous Sulfate [Iron (65 MG 325 mg PO DAILY 08/28/14 12/01/17 History Elemental)] Gabapentin [Neurontin] 300 mg PO BID 08/28/14 12/01/17 History Levothyroxine Sodium [Synthroid] 25 mcg PO DAILY 05/09/16 12/01/17 History Spironolactone 50 mg PO BID 08/10/16 12/01/17 History ALPRAZolam [Xanax] 0.5 mg PO BID PRN #60 tablet 10/20/16 12/01/17 Rx HYDROcodone/APAP 10-325MG [[place] 1 tab PO Q6H PRN 04/12/17 12/01/17 History 10-325] Allopurinol [Zyloprim] 200 mg PO DAILY 04/24/17 12/01/17 History Escitalopram [Lexapro] 10 mg PO DAILY 04/24/17 12/01/17 History Prazosin [Minipress] 1 mg PO HS 04/24/17 12/01/17 History Cyclobenzaprine [Flexeril] 10 mg PO TID 08/02/17 12/01/17 History Diclofenac Sodium [Voltaren] 75 mg PO BID 08/02/17 12/01/17 History Azo Bladder Control 1 tab PO BID 12/01/17 12/01/17 History Folic Acid 1 mg PO DAILY 12/01/17 12/01/17 History Metoprolol Tartrate [Lopressor] 50 mg PO BID 12/01/17 12/01/17 History Potassium Chloride ER [K-Dur 20] 20 meq PO BID 12/01/17 12/01/17 History Allergies Allergy/AdvReac Type Severity Reaction Status Date / Time oxycodone HCl [From Percocet] Allergy Rash/Hives Verified 12/01/17 13:12 procaine HCl [From Novocain] Allergy facial Verified 12/01/17 13:12 swelling Physical Examination Left lower extremity: Physical exam is very difficult due to the excess amount of soft tissue present around the knee Very difficult to appreciate any effusion. No obvious open lesions or sores are present She is able to plantarflex and dorsiflex and minimal extension, she can wiggle all the toes She can extend the knee, she is a very difficult time lifting the leg off the bed due to pain reproduced over the anterior aspect She can only flex to about 30 Sensory exam to light touch is intact throughout the extremity Results - Labs Labs: Abnormal Lab Results - Last 24 Hours (Table) 12/01/17 12/01/17 12/01/17 Range/Units 14:42 14:42 14:42 Hgb 10.1 L (11.4-16.0) gm/dL Hct 31.4 L (34.0-46.0) % MCV 79.0 L (80.0-100.0) fL RDW 15.8 H (11.5-15.5) % Glucose 107 H (74-99) mg/dL Total Creatine Kinase 138 H (30-135) U/L H & H 12/01/17 Range/Units 14:42 Hgb 10.1 L (11.4-16.0) gm/dL Hct 31.4 L (34.0-46.0) % Result Diagrams: 12/01/17 14:42 12/01/17 14:42 - Diagnostic results Knee x-ray: report reviewed, image reviewed Assessment and Plan Plan: Imaging: Multiple views of the bilateral knees were obtained. Images demonstrate severe osteoarthritic changes in the medial, lateral and patellar compartments of the knee. Obvious excess soft tissues present, which makes the x-rays somewhat difficult to read. Multiple osteophytes were present throughout the bilateral knees. Assessment: Severe osteoarthritis bilateral knees Increasing left knee pain Severe morbid obesity Multiple medical comorbidities Plan: I was able to discuss the case, including both physical exam findings imaging studies my tendon Dr. Jensen. No orthopedic surgical intervention at this time I had a long discussion with patient today regarding her weight and severity of her osteoarthritis. She is at a very significant risk for any type of surgical intervention involving the knees, she is a very poor surgical candidate at this time. Recommended a discussion with a general surgeon who specializes in bariatric surgery to help with weight loss Continue current medical management this time, conservative measures for knee pain to consider ice and elevating, anti-inflammatories and pain medication Recommend physical therapy and OT evaluation We'll be available for any further questions regarding this patient. Time with Patient: Less than 30
[2017-12-01 22:16] LABS: Creatine Kinase MB 0.5 ng/mL (0.0-2.4)
[2017-12-01 22:51] LABS: Amorphous Sediment,Urine Occasional /hpf; Appearance,Urine Clear (Clear); Bacteria,Urine Rare /hpf; Bilirubin,Urine Negative (Negative); Blood,Urine Negative (Negative); Color,Urine Light Yellow; Glucose,Urine (UA) Negative (Negative); Ketones,Urine Negative (Negative); Leukocyte Esterase,Urine Small (Negative); Nitrite,Urine Negative (Negative); Protein,Urine Negative (Negative); RBC,Urine <1 /hpf (0-5); Squamous Epithelial Cell,Urine 3 /hpf (0-4); Urobilinogen,Urine <2.0 mg/dL (<2.0); WBC,Urine 6 /hpf (0-5)
[2017-12-02] MEDS ORDERED: DIAZEPAM 5 MG TAB PO STA (02:21)
[2017-12-02] MEDS: HYDROcodone/APAP 10-325MG 1 EACH TAB PO PRN ×2 (02:30→08:19)
[2017-12-02 03:58] LABS: Anisocytosis Slight; Basophils # (A) 0.1 k/uL (0-0.2); Basophils % (A) 0 %; Eosinophils # (A) 0.4 k/uL (0-0.7); Eosinophils % (A) 3 %; HCT 30.2 % (34.0-46.0); HGB 9.8 gm/dL (11.4-16.0); Lymphocytes # (A) 2.8 k/uL (1.0-4.8); Lymphocytes % (A) 26 %; MCHC 32.6 g/dL (31.0-37.0); MCV 79.8 fL (80.0-100.0); Mean Platelet Volume 6.5; Monocytes # (A) 0.7 k/uL (0-1.0); Monocytes % (A) 6 %; Neutrophils # (A) 6.6 k/uL (1.3-7.7); Neutrophils % (A) 63 %; Platelet Count 333 k/uL (150-450); RBC 3.78 m/uL (3.80-5.40); RDW 16.4 % (11.5-15.5); WBC 10.5 k/uL (3.8-10.6)
[2017-12-02 04:00] LABS: ALT 24 U/L (9-52); AST 16 U/L (14-36); Albumin 3.6 g/dL (3.5-5.0); Alkaline Phosphatase 68 U/L (38-126); Anion Gap 11 mmol/L; Blood Urea Nitrogen 8 mg/dL (7-17); Calcium 8.6 mg/dL (8.4-10.2); Carbon Dioxide 25 mmol/L (22-30); Chloride 103 mmol/L (98-107); Glucose 113 mg/dL (74-99); Potassium 4.1 mmol/L (3.5-5.1); Sodium 139 mmol/L (137-145); Total Bilirubin 0.4 mg/dL (0.2-1.3); Total Protein 6.6 g/dL (6.3-8.2)
[2017-12-02 04:12] LABS: Creatine Kinase 147 U/L (30-135)
[2017-12-02 04:24] LABS: Creatine Kinase MB 0.5 ng/mL (0.0-2.4); Troponin I <0.012 ng/mL (0.000-0.034)
[2017-12-02] MEDS: LEVOTHYROXINE 25 MCG TAB PO SCH (06:22)
[2017-12-02] MEDS: METOPROLOL TARTRATE 50 MG TAB PO SCH ×2 (07:49→21:14)
[2017-12-02] MEDS: CYCLOBENZAPRINE 10 MG TAB PO SCH ×3 (07:49→21:14)
[2017-12-02] MEDS: GABAPENTIN 300 MG CAP PO SCH ×2 (07:50→21:14)
[2017-12-02] MEDS: SPIRONOLACTONE 25 MG TAB PO SCH ×2 (07:50→21:14)
[2017-12-02] MEDS: ESCITALOPRAM 10 MG TAB PO SCH (07:50)
[2017-12-02] MEDS: ENOXAPARIN 30 MG/0.3 ML SYRINGE SQ SCH (07:50)
[2017-12-02] MEDS: ALLOPURINOL 100 MG TAB PO SCH (07:50)
[2017-12-02] MEDS: MORPHINE SULFATE 2 MG/ML SYRINGE IVP PRN ×3 (11:06→21:44)
--- NOTE | 2017-12-02 12:02 | P.PN ---
Subjective Progress Note Date: 12/02/17 Principal diagnosis: Still complaining of knee pain and weakness Chest pain or shortness of breath at this time Constitutional: No acute distress, Eyes: Anicteric sclerae, moist conjunctiva, no lid-lag PERRLA ENMT: NC/AT Oropharynx clear, no erythema, exudates Neck: Supple, FROM, no masses, or JVD No carotid bruits No thyromegaly Lungs: Clear to auscultation Clear to percussion Normal respiratory effort, no accessory muscle use Cardiovascular: Heart regular in rate and rhythm, No murmurs, gallops, or rubs No peripheral edema Abdominal: Soft Nontender, no guarding, Diabetes panel 12/01/17 12/02/17 Range/Units 14:42 03:11 Sodium 142 139 (137-145) mmol/L Potassium 3.9 4.1 (3.5-5.1) mmol/L Chloride 102 103 (98-107) mmol/L Carbon Dioxide 30 25 (22-30) mmol/L BUN 7 8 (7-17) mg/dL Creatinine 0.67 0.80 (0.52-1.04) mg/dL Glucose 107 H 113 H (74-99) mg/dL Calcium 8.7 8.6 (8.4-10.2) mg/dL AST 14 16 (14-36) U/L ALT 24 24 (9-52) U/L Alkaline Phosphatase 81 68 (38-126) U/L Total Protein 6.7 6.6 (6.3-8.2) g/dL Albumin 3.7 3.6 (3.5-5.0) g/dL Calcium panel 12/01/17 12/02/17 Range/Units 14:42 03:11 Calcium 8.7 8.6 (8.4-10.2) mg/dL Albumin 3.7 3.6 (3.5-5.0) g/dL Pituitary panel 12/01/17 12/02/17 Range/Units 14:42 03:11 Sodium 142 139 (137-145) mmol/L Potassium 3.9 4.1 (3.5-5.1) mmol/L Chloride 102 103 (98-107) mmol/L Carbon Dioxide 30 25 (22-30) mmol/L BUN 7 8 (7-17) mg/dL Creatinine 0.67 0.80 (0.52-1.04) mg/dL Glucose 107 H 113 H (74-99) mg/dL Calcium 8.7 8.6 (8.4-10.2) mg/dL Adrenal panel 12/01/17 12/02/17 Range/Units 14:42 03:11 Sodium 142 139 (137-145) mmol/L Potassium 3.9 4.1 (3.5-5.1) mmol/L Chloride 102 103 (98-107) mmol/L Carbon Dioxide 30 25 (22-30) mmol/L BUN 7 8 (7-17) mg/dL Creatinine 0.67 0.80 (0.52-1.04) mg/dL Glucose 107 H 113 H (74-99) mg/dL Calcium 8.7 8.6 (8.4-10.2) mg/dL Total Bilirubin 0.4 0.4 (0.2-1.3) mg/dL AST 14 16 (14-36) U/L ALT 24 24 (9-52) U/L Alkaline Phosphatase 81 68 (38-126) U/L Total Protein 6.7 6.6 (6.3-8.2) g/dL Albumin 3.7 3.6 (3.5-5.0) g/dL Vital Signs - 24 hr 12/01/17 12/01/17 12/01/17 12:41 15:25 18:22 Temperature 97.4 F L 97.6 F Pulse Rate 92 94 89 Pulse Rate [ Pulse Oximetery ] Respiratory 20 18 18 Rate Blood Pressure 187/87 168/90 182/78 Blood Pressure [Right Arm] O2 Sat by Pulse 99 100 99 Oximetry 12/01/17 12/01/17 12/02/17 22:00 23:50 07:40 Temperature 97.3 F L 98.8 F Pulse Rate Pulse Rate [ 94 94 Pulse Oximetery ] Respiratory 16 16 20 Rate Blood Pressure Blood Pressure 159/69 174/96 [Right Arm] O2 Sat by Pulse 93 L 94 L Oximetry 12/02/17 08:00 Temperature Pulse Rate Pulse Rate [ 94 Pulse Oximetery ] Respiratory 20 Rate Blood Pressure Blood Pressure [Right Arm] O2 Sat by Pulse Oximetry Skin: Normal temperature, tone, texture, turgor No induration No subcutaneous nodules No rash, lesions No ulcers Extremities: No digital cyanosis No clubbing Pedal pulses intact and symmetrical Radial pulses intact and symmetrical Normal gait and station No calf tenderness Psychiatric:Alert and oriented to person, place and time Appropriate affect Intact judgement Neuro: Muscles Strength 5/5 in all 4 extremities Sensation to light touch grossly present throughout Cranial nerves II-XII grossly intact No focal sensory deficits Assessment and plan weakness in the left lower extremity that has been gone for the last several days or more Likely due weakness is due to morbid obesity and the patient likely needs to be placed in rehab due to the severely morbid obesity and in ability to ambulate Morbid obesity Generalized weakness the patient likely needs to be in the rehab Knee pain left knee pain we also has been consulted x-rays has been ordered DVT and GI prophylaxis Anxiety Pain control Recurrent falls and weakness likely due to the morbid obesity Objective - Vital Signs Vital signs: Vital Signs Temp 98.8 F 12/02/17 07:40 Pulse 94 12/02/17 08:00 Resp 20 12/02/17 08:00 BP 174/96 12/02/17 07:40 Pulse Ox 94 L 12/02/17 07:40 Intake & Output 12/01/17 12/02/17 12/02/17 18:59 06:59 18:59 Intake Total 1720 Balance 1720 Weight 188.241 kg Intake: Intake, IV Titration 80 Amount Sodium Chloride 0.9% 1, 80 000 ml @ 20 mls/hr IV . Q24H [facility] Rx#:[id number] Oral 1640 Other: Voiding Method Bedside Commode # Voids 1 1 - Labs CBC & Chem 7: 12/02/17 03:11 12/02/17 03:11 Labs: Abnormal Lab Results - Last 24 Hours (Table) 12/01/17 12/01/17 12/01/17 Range/Units 14:42 14:42 14:42 RBC (3.80-5.40) m/uL Hgb 10.1 L (11.4-16.0) gm/dL Hct 31.4 L (34.0-46.0) % MCV 79.0 L (80.0-100.0) fL RDW 15.8 H (11.5-15.5) % Glucose 107 H (74-99) mg/dL Total Creatine Kinase 138 H (30-135) U/L Ur Leukocyte Esterase (Negative) Urine WBC (0-5) /hpf Amorphous Sediment (None) /hpf Urine Bacteria (None) /hpf 12/01/17 12/01/17 12/02/17 Range/Units 21:20 22:45 03:11 RBC (3.80-5.40) m/uL Hgb (11.4-16.0) gm/dL Hct (34.0-46.0) % MCV (80.0-100.0) fL RDW (11.5-15.5) % Glucose (74-99) mg/dL Total Creatine Kinase 141 H 147 H (30-135) U/L Ur Leukocyte Esterase Small H (Negative) Urine WBC 6 H (0-5) /hpf Amorphous Sediment Occasional H (None) /hpf Urine Bacteria Rare H (None) /hpf 12/02/17 12/02/17 Range/Units 03:11 03:11 RBC 3.78 L (3.80-5.40) m/uL Hgb 9.8 L (11.4-16.0) gm/dL Hct 30.2 L (34.0-46.0) % MCV 79.8 L (80.0-100.0) fL RDW 16.4 H (11.5-15.5) % Glucose 113 H (74-99) mg/dL Total Creatine Kinase (30-135) U/L Ur Leukocyte Esterase (Negative) Urine WBC (0-5) /hpf Amorphous Sediment (None) /hpf Urine Bacteria (None) /hpf
[2017-12-02] MEDS: FOLIC ACID 1 MG TAB PO SCH (13:34)
--- NOTE | 2017-12-02 14:04 | P.CONS ---
History of Present Illness - Reason for Consult Consult date: 12/02/17 Leg weakness - Chief Complaint Leg weakness - History of Present Illness This pleasant 47-year-old -[place] male being evaluated by the neurology service for weakness. She has known history of morbid obesity and severe osteoarthritis of the knees. She says for the last few days she had more trouble ambulating and there was a concern that maybe this is due to weakness. She says that is more due to pain in her knees and ankles. She says that she has been falling the last several months because of this problem. She denies any new onset lateralization of symptoms. She has some chronic numbness and tingling in bilateral lower extremities but no more than normal. She also has a history of chronic leg wounds with lower extremity edema. She has chronic low back pain with sciatica. She has history of a temporal bone fracture. She denies any new injuries to the back. She denies any radicular symptoms or sphincter incontinence. Her CT of the brain was negative for any acute intracranial abnormalities. Review of Systems All systems: negative Constitutional: Reports as per HPI Past Medical History Past Medical History: GERD/Reflux, GI Bleed, Myocardial Infarction ([place]), Osteoarthritis (OA), Renal Disease, Syncope Additional Past Medical History / Comment(s): previously charted pt had renal disease-pt unaware of thisObesity, weakness-bedridden for few weeks now, numbness/tingling bilateral feet, chronic phil leg wound/cellulitis currently healed,previous rt leg ulcers now healed, lower leg edema, chronic low back pain with sciatica, tail bone fracture, migraines, pt states she had toxemia with 1st and had a [place], bilateral tinnitis occasionally, bronchitis, sinus problems, gout bilateral feet, carpal tunnel syndrome bilateral wrists, hypothyoid, HTN but only with anxiety, colitis, IBS, chron's, diverticular dx, occasional low blood sugar, nephrolithiasis-pt passed on her own, chronic anemia , lower GI bleed, UTIs."sickle cell" Last Myocardial Infarction Date:: 1989 History of Any Multi-Drug Resistant Organisms: None Reported Past Surgical History: Section, Tubal Ligation Additional Past Surgical History / Comment(s): colonoscopy, 4 c-sections Past Anesthesia/Blood Transfusion Reactions: No Reported Reaction Additional Past Anesthesia/Blood Transfusion Reaction / Comm: Pt has received blood in the past and had itching, has had another transfusion since with no reaction. Smoking Status: Never smoker - Past Family History Father History Unknown: Yes Additional Family Medical History / Comment(s): Pt was adopted and does not know parents/family medical hx. Medications and Allergies Home Medications Medication Instructions Recorded Confirmed Type Ferrous Sulfate [Iron (65 MG 325 mg PO DAILY 08/28/14 12/01/17 History Elemental)] Gabapentin [Neurontin] 300 mg PO BID 08/28/14 12/01/17 History Levothyroxine Sodium [Synthroid] 25 mcg PO DAILY 05/09/16 12/01/17 History Spironolactone 50 mg PO BID 08/10/16 12/01/17 History ALPRAZolam [Xanax] 0.5 mg PO BID PRN #60 tablet 10/20/16 12/01/17 Rx HYDROcodone/APAP 10-325MG [[place] 1 tab PO Q6H PRN 04/12/17 12/01/17 History 10-325] Allopurinol [Zyloprim] 200 mg PO DAILY 04/24/17 12/01/17 History Escitalopram [Lexapro] 10 mg PO DAILY 04/24/17 12/01/17 History Prazosin [Minipress] 1 mg PO HS 04/24/17 12/01/17 History Cyclobenzaprine [Flexeril] 10 mg PO TID 08/02/17 12/01/17 History Diclofenac Sodium [Voltaren] 75 mg PO BID 08/02/17 12/01/17 History Azo Bladder Control 1 tab PO BID 12/01/17 12/01/17 History Folic Acid 1 mg PO DAILY 12/01/17 12/01/17 History Metoprolol Tartrate [Lopressor] 50 mg PO BID 12/01/17 12/01/17 History Potassium Chloride ER [K-Dur 20] 20 meq PO BID 12/01/17 12/01/17 History Allergies Allergy/AdvReac Type Severity Reaction Status Date / Time oxycodone HCl [From Percocet] Allergy Rash/Hives Verified 12/01/17 13:12 procaine HCl [From Novocain] Allergy facial Verified 12/01/17 13:12 swelling Physical Exam Vitals: Vital Signs Temp Pulse Pulse Resp BP BP Pulse Ox 12/02/17 08:00 94 20 12/02/17 07:40 98.8 F 94 20 174/96 94 L 12/01/17 23:50 16 12/01/17 22:00 97.3 F L 94 16 159/69 93 L 12/01/17 18:22 97.6 F 89 18 182/78 99 12/01/17 15:25 94 18 168/90 100 Intake and Output 12/01/17 12/02/17 12/02/17 22:59 06:59 14:59 Intake Total 911 218 3594 Balance 461 513 2260 Intake: Intake, IV Titration 80 120 Amount Sodium Chloride 0.9% 1, 80 120 000 ml @ 20 mls/hr IV . Q24H [facility] Rx#:[id number] Oral 374 553 1364 Other: Voiding Method Bedside Commode # Voids 1 1 2 - Constitutional General appearance: cooperative, no no acute distress, obese - EENT Eyes: no abnormal pupil, EOMI, PERRLA, no ptosis ENT: hearing grossly normal - Neck Neck: normal ROM, no rigidity - Respiratory Respiratory: negative: prolonged expiration, prolonged inspiration - Cardiovascular Rhythm: regular - Gastrointestinal General gastrointestinal: no distended, no tenderness - Neurologic The patient is alert awake and oriented 3. Speech and language are normal. There is no facial asymmetry. Strength is 5 out of 5 in bilateral upper and lower extremities. There is no sensory deficit. No tremors or seizures are seen. Cranial nerves II through XII are intact globally. Results CBC & Chem 7: 12/02/17 03:11 12/02/17 03:11 Labs: Abnormal Lab Results - Last 24 Hours (Table) 12/01/17 12/01/17 12/01/17 Range/Units 14:42 14:42 14:42 RBC (3.80-5.40) m/uL Hgb 10.1 L (11.4-16.0) gm/dL Hct 31.4 L (34.0-46.0) % MCV 79.0 L (80.0-100.0) fL RDW 15.8 H (11.5-15.5) % Glucose 107 H (74-99) mg/dL Total Creatine Kinase 138 H (30-135) U/L Ur Leukocyte Esterase (Negative) Urine WBC (0-5) /hpf Amorphous Sediment (None) /hpf Urine Bacteria (None) /hpf 12/01/17 12/01/17 12/02/17 Range/Units 21:20 22:45 03:11 RBC (3.80-5.40) m/uL Hgb (11.4-16.0) gm/dL Hct (34.0-46.0) % MCV (80.0-100.0) fL RDW (11.5-15.5) % Glucose (74-99) mg/dL Total Creatine Kinase 141 H 147 H (30-135) U/L Ur Leukocyte Esterase Small H (Negative) Urine WBC 6 H (0-5) /hpf Amorphous Sediment Occasional H (None) /hpf Urine Bacteria Rare H (None) /hpf 12/02/17 12/02/17 Range/Units 03:11 03:11 RBC 3.78 L (3.80-5.40) m/uL Hgb 9.8 L (11.4-16.0) gm/dL Hct 30.2 L (34.0-46.0) % MCV 79.8 L (80.0-100.0) fL RDW 16.4 H (11.5-15.5) % Glucose 113 H (74-99) mg/dL Total Creatine Kinase (30-135) U/L Ur Leukocyte Esterase (Negative) Urine WBC (0-5) /hpf Amorphous Sediment (None) /hpf Urine Bacteria (None) /hpf Assessment and Plan (1) Knee pain, bilateral Current Visit: Yes Status: Chronic Code(s): M25.561 - PAIN IN RIGHT KNEE; M25.562 - PAIN IN LEFT KNEE SNOMED Code(s): 13147444 (2) Weakness Current Visit: Yes Status: Chronic Code(s): R53.1 - WEAKNESS SNOMED Code(s ): 54363359 (3) Bilateral lower extremity edema Current Visit: No Status: Chronic Code(s): R60.0 - LOCALIZED EDEMA SNOMED Code(s): 302368985 (4) Fall Current Visit: No Status: Chronic Code(s): W19.XXXA - UNSPECIFIED FALL, INITIAL ENCOUNTER SNOMED Code(s): 7191836 (5) Morbid obesity with BMI of 70 and over, adult Current Visit: No Status: Chronic Code(s): E66.01 - MORBID (SEVERE) OBESITY DUE TO EXCESS CALORIES; Z68.45 - BODY MASS INDEX (BMI) 70 OR GREATER, ADULT SNOMED Code(s): 756560387 Plan: The patient is having weakness in bilateral lower extremities due to her chronic osteoarthritis, morbid obesity, and likely sedentary lifestyle. There are no lateralizing symptoms or any concern for any acute neurological process. She likely has some lower extremity peripheral neuropathy from her chronic conditions. This could be worked up in outpatient setting. Otherwise no further neurological evaluation is needed. I have performed a history and physical on the above patient. I have reviewed the above note, and agree.
[2017-12-02] MEDS: SODIUM CHLORIDE 0.9% 1,000 ML IV SCH (17:25)
[2017-12-02] MEDS: PRAZOSIN 1 MG CAP PO SCH (21:14)
[2017-12-02] MEDS: ALPRAZolam 0.5 MG TAB PO PRN (21:44)
[2017-12-03] MEDS: MORPHINE SULFATE 2 MG/ML SYRINGE IVP PRN ×5 (02:25→22:19)
[2017-12-03] MEDS: LEVOTHYROXINE 25 MCG TAB PO SCH (06:08)
[2017-12-03 07:12] LABS: Anisocytosis Slight; Basophils % (A) 0 %; Eosinophils # (A) 0.4 k/uL (0-0.7); Eosinophils % (A) 4 %; HCT 29.4 % (34.0-46.0); HGB 9.5 gm/dL (11.4-16.0); Hypochromasia Slight; Lymphocytes # (A) 2.7 k/uL (1.0-4.8); Lymphocytes % (A) 28 %; MCH 25.8 pg (25.0-35.0); MCHC 32.2 g/dL (31.0-37.0); MCV 80.3 fL (80.0-100.0); Mean Platelet Volume 6.2; Monocytes # (A) 0.4 k/uL (0-1.0); Monocytes % (A) 4 %; Neutrophils # (A) 6.1 k/uL (1.3-7.7); Neutrophils % (A) 63 %; Platelet Count 329 k/uL (150-450); RBC 3.67 m/uL (3.80-5.40); RDW 16.1 % (11.5-15.5); WBC 9.7 k/uL (3.8-10.6)
[2017-12-03 07:25] LABS: AST 12 U/L (14-36); Albumin 3.4 g/dL (3.5-5.0); Anion Gap 7 mmol/L; Blood Urea Nitrogen 11 mg/dL (7-17); Calcium 8.6 mg/dL (8.4-10.2); Carbon Dioxide 30 mmol/L (22-30); Chloride 101 mmol/L (98-107); Glucose 110 mg/dL (74-99); Potassium 4.1 mmol/L (3.5-5.1); Sodium 138 mmol/L (137-145); Total Bilirubin 0.4 mg/dL (0.2-1.3); Total Protein 6.4 g/dL (6.3-8.2)
[2017-12-03 07:26] LABS: ALT 19 U/L (9-52); Alkaline Phosphatase 75 U/L (38-126)
[2017-12-03] MEDS: GABAPENTIN 300 MG CAP PO SCH ×2 (09:25→21:38)
[2017-12-03] MEDS: METOPROLOL TARTRATE 50 MG TAB PO SCH ×2 (09:25→21:39)
[2017-12-03] MEDS: CYCLOBENZAPRINE 10 MG TAB PO SCH ×3 (09:25→21:38)
[2017-12-03] MEDS: SPIRONOLACTONE 25 MG TAB PO SCH ×2 (09:25→22:20)
[2017-12-03] MEDS: ENOXAPARIN 30 MG/0.3 ML SYRINGE SQ SCH (09:25)
[2017-12-03] MEDS: HYDROcodone/APAP 10-325MG 1 EACH TAB PO PRN ×2 (09:25→20:42)
[2017-12-03] MEDS: ALLOPURINOL 100 MG TAB PO SCH (09:25)
[2017-12-03] MEDS: ESCITALOPRAM 10 MG TAB PO SCH (09:25)
[2017-12-03] MEDS: ALPRAZolam 0.5 MG TAB PO PRN (10:54)
[2017-12-03] MEDS: FOLIC ACID 1 MG TAB PO SCH (11:18)
--- NOTE | 2017-12-03 14:45 | P.PN ---
Subjective Progress Note Date: 12/03/17 Principal diagnosis: Patient still weak Is not complaining of chest pain or shortness of breath at this time continues to complain of knee pain Vital Signs 12/01/17 12/01/17 12/01/17 12:41 15:25 18:22 Temperature 97.4 F L 97.6 F Pulse Rate 92 94 89 Pulse Rate [ Pulse Oximetery ] Respiratory 20 18 18 Rate Blood Pressure 187/87 168/90 182/78 Blood Pressure [Right Arm] O2 Sat by Pulse 99 100 99 Oximetry 12/01/17 12/01/17 12/02/17 22:00 23:50 07:40 Temperature 97.3 F L 98.8 F Pulse Rate Pulse Rate [ 94 94 Pulse Oximetery ] Respiratory 16 16 20 Rate Blood Pressure Blood Pressure 159/69 174/96 [Right Arm] O2 Sat by Pulse 93 L 94 L Oximetry 12/02/17 12/02/17 12/02/17 08:00 14:55 16:00 Temperature 98.2 F Pulse Rate Pulse Rate [ 94 95 88 Pulse Oximetery ] Respiratory 20 20 20 Rate Blood Pressure Blood Pressure 160/110 [Right Arm] O2 Sat by Pulse 95 Oximetry 12/02/17 12/02/17 12/03/17 16:20 21:31 00:00 Temperature 97.7 F Pulse Rate Pulse Rate [ 88 89 Pulse Oximetery ] Respiratory 18 18 Rate Blood Pressure Blood Pressure 143/86 193/85 [Right Arm] O2 Sat by Pulse 100 Oximetry 12/03/17 04:49 Temperature 98.6 F Pulse Rate Pulse Rate [ 87 Pulse Oximetery ] Respiratory 18 Rate Blood Pressure Blood Pressure 171/98 [Right Arm] O2 Sat by Pulse 99 Oximetry Laboratory Results - last 24 hr 12/03/17 12/03/17 07:01 07:01 WBC 9.7 RBC 3.67 L Hgb 9.5 L Hct 29.4 L MCV 80.3 MCH 25.8 MCHC 32.2 RDW 16.1 H Plt Count 329 Neutrophils % 63 Lymphocytes % 28 Monocytes % 4 Eosinophils % 4 Basophils % 0 Neutrophils # 6.1 Lymphocytes # 2.7 Monocytes # 0.4 Eosinophils # 0.4 Basophils # 0.0 Hypochromasia Slight Anisocytosis Slight Sodium 138 Potassium 4.1 Chloride 101 Carbon Dioxide 30 Anion Gap 7 BUN 11 Creatinine 0.70 Est GFR (CKD-EPI)AfAm >90 Est GFR (CKD-EPI)NonAf >90 Glucose 110 H Calcium 8.6 Total Bilirubin 0.4 AST 12 L ALT 19 Alkaline Phosphatase 75 Total Protein 6.4 Albumin 3.4 L Assessment and plan weakness in the left lower extremity that has been gone for the last several days or more Likely due weakness is due to morbid obesity and the patient likely needs to be placed in rehab due to the severely morbid obesity and in ability to ambulate Generalized weakness the patient likely needs to be in the rehab Knee pain left knee pain we also has been consulted x-rays has been ordered DVT and GI prophylaxis Anxiety Pain control Recurrent falls and weakness likely due to the morbid obesity Overall the condition of the patient continued to be stable continue to complain of knee pain Neurology also has been consulted Objective - Vital Signs Vital signs: Vital Signs Temp 98.6 F 12/03/17 04:49 Pulse 87 12/03/17 04:49 Resp 18 12/03/17 04:49 BP 171/98 12/03/17 04:49 Pulse Ox 99 12/03/17 04:49 Intake & Output 12/02/17 12/03/17 12/03/17 18:59 06:59 18:59 Intake Total 1320 480 Balance 1320 480 Intake: Intake, IV Titration 120 Amount Sodium Chloride 0.9% 1, 120 000 ml @ 20 mls/hr IV . Q24H [facility] Rx#:[id number] Oral 1200 480 Other: Voiding Method Bedside Commode Bedside Commode Bedside Commode # Voids 2 3 1 # Bowel Movements 1 1 - Labs CBC & Chem 7: 12/03/17 07:01 12/03/17 07:01 Labs: Abnormal Lab Results - Last 24 Hours (Table) 12/03/17 12/03/17 Range/Units 07:01 07:01 RBC 3.67 L (3.80-5.40) m/uL Hgb 9.5 L (11.4-16.0) gm/dL Hct 29.4 L (34.0-46.0) % RDW 16.1 H (11.5-15.5) % Glucose 110 H (74-99) mg/dL AST 12 L (14-36) U/L Albumin 3.4 L (3.5-5.0) g/dL
[2017-12-03] MEDS: SODIUM CHLORIDE 0.9% 1,000 ML IV SCH (18:16)
[2017-12-03] MEDS: PRAZOSIN 1 MG CAP PO SCH (21:38)
[2017-12-04] MEDS: MORPHINE SULFATE 2 MG/ML SYRINGE IVP PRN ×5 (02:35→21:36)
[2017-12-04] MEDS: HYDROcodone/APAP 10-325MG 1 EACH TAB PO PRN ×3 (04:27→17:01)
[2017-12-04] MEDS: LEVOTHYROXINE 25 MCG TAB PO SCH (05:22)
[2017-12-04 08:25] LABS: ALT 20 U/L (9-52); AST 15 U/L (14-36); Albumin 3.6 g/dL (3.5-5.0); Alkaline Phosphatase 78 U/L (38-126); Anion Gap 10 mmol/L; Blood Urea Nitrogen 13 mg/dL (7-17); Calcium 8.9 mg/dL (8.4-10.2); Carbon Dioxide 30 mmol/L (22-30); Chloride 100 mmol/L (98-107); Glucose 113 mg/dL (74-99); Potassium 4.6 mmol/L (3.5-5.1); Sodium 140 mmol/L (137-145); Total Bilirubin 0.5 mg/dL (0.2-1.3); Total Protein 6.7 g/dL (6.3-8.2)
[2017-12-04] MEDS: ENOXAPARIN 30 MG/0.3 ML SYRINGE SQ SCH (08:38)
[2017-12-04] MEDS: GABAPENTIN 300 MG CAP PO SCH ×2 (08:39→21:36)
[2017-12-04] MEDS: ALLOPURINOL 100 MG TAB PO SCH (08:39)
[2017-12-04] MEDS: SPIRONOLACTONE 25 MG TAB PO SCH ×2 (08:39→21:36)
[2017-12-04] MEDS: CYCLOBENZAPRINE 10 MG TAB PO SCH ×3 (08:39→21:36)
[2017-12-04] MEDS: ESCITALOPRAM 10 MG TAB PO SCH (08:39)
[2017-12-04] MEDS: METOPROLOL TARTRATE 50 MG TAB PO SCH ×2 (08:40→21:36)
[2017-12-04] MEDS: FOLIC ACID 1 MG TAB PO SCH (08:40)
[2017-12-04 09:22] LABS: Anisocytosis Slight; Basophils % (A) 0 %; Eosinophils # (A) 0.4 k/uL (0-0.7); Eosinophils % (A) 4 %; HCT 28.7 % (34.0-46.0); HGB 9.4 gm/dL (11.4-16.0); Lymphocytes # (A) 2.2 k/uL (1.0-4.8); Lymphocytes % (A) 23 %; MCH 26.3 pg (25.0-35.0); MCHC 32.8 g/dL (31.0-37.0); MCV 80.2 fL (80.0-100.0); Mean Platelet Volume 6.3; Monocytes # (A) 0.4 k/uL (0-1.0); Monocytes % (A) 4 %; Neutrophils # (A) 6.1 k/uL (1.3-7.7); Neutrophils % (A) 67 %; Platelet Count 291 k/uL (150-450); RBC 3.58 m/uL (3.80-5.40); RDW 16.3 % (11.5-15.5); WBC 9.2 k/uL (3.8-10.6)
[2017-12-04] MEDS ORDERED: ZOLPIDEM 10 MG TAB PO PRN (11:25)
--- NOTE | 2017-12-04 11:30 | P.PN ---
Subjective Principal diagnosis: Patient still complains of knee pain and generalized weakness Also complains of insomnia No chest pain no shortness of breath Constitutional: No acute distress, conversant, pleasant Eyes: Anicteric sclerae, moist conjunctiva, no lid-lag PERRLA ENMT: Cranial nerves grossly intact Neck: Supple, FROM, no masses, or JVD No carotid bruits No thyromegaly Lungs: Clear to auscultation Clear to percussion Normal respiratory effort, no accessory muscle use Cardiovascular: Heart regular in rate and rhythm, No murmurs, gallops, or rubs No peripheral edema Abdominal: Soft Nontender, no guarding, rebound or rigidity Abdomen moving with respiration Normoactive bowel sounds No hepatomegaly, No splenomegaly No palpable mass No abdominal wall hernia noted Skin: Normal temperature, tone, texture, turgor No induration No subcutaneous nodules No rash, lesions No ulcers Extremities: Bilateral edema 2+ Psychiatric:Alert and oriented to person, place and time Appropriate affect Intact judgement Neuro: Generalized weakness Vital Signs 12/01/17 12/01/17 12/01/17 12:41 15:25 18:22 Temperature 97.4 F L 97.6 F Pulse Rate 92 94 89 Pulse Rate [ Pulse Oximetery ] Respiratory 20 18 18 Rate Blood Pressure 187/87 168/90 182/78 Blood Pressure [Left Arm] Blood Pressure [Right Arm] O2 Sat by Pulse 99 100 99 Oximetry 12/01/17 12/01/17 12/02/17 22:00 23:50 07:40 Temperature 97.3 F L 98.8 F Pulse Rate Pulse Rate [ 94 94 Pulse Oximetery ] Respiratory 16 16 20 Rate Blood Pressure Blood Pressure [Left Arm] Blood Pressure 159/69 174/96 [Right Arm] O2 Sat by Pulse 93 L 94 L Oximetry 12/02/17 12/02/17 12/02/17 08:00 14:55 16:00 Temperature 98.2 F Pulse Rate Pulse Rate [ 94 95 88 Pulse Oximetery ] Respiratory 20 20 20 Rate Blood Pressure Blood Pressure [Left Arm] Blood Pressure 160/110 [Right Arm] O2 Sat by Pulse 95 Oximetry 12/02/17 12/02/17 12/03/17 16:20 21:31 00:00 Temperature 97.7 F Pulse Rate Pulse Rate [ 88 89 Pulse Oximetery ] Respiratory 18 18 Rate Blood Pressure Blood Pressure [Left Arm] Blood Pressure 143/86 193/85 [Right Arm] O2 Sat by Pulse 100 Oximetry 12/03/17 12/03/17 12/03/17 04:49 15:24 21:30 Temperature 98.6 F Pulse Rate Pulse Rate [ 87 85 Pulse Oximetery ] Respiratory 18 Rate Blood Pressure Blood Pressure [Left Arm] Blood Pressure 171/98 149/84 165/112 [Right Arm] O2 Sat by Pulse 99 Oximetry 12/03/17 12/04/17 23:15 05:00 Temperature 97.4 F L Pulse Rate Pulse Rate [ 85 Pulse Oximetery ] Respiratory 17 Rate Blood Pressure Blood Pressure 145/98 165/100 [Left Arm] Blood Pressure [Right Arm] O2 Sat by Pulse 94 L Oximetry Diabetes panel 12/04/17 Range/Units 07:41 Sodium 140 (137-145) mmol/L Potassium 4.6 (3.5-5.1) mmol/L Chloride 100 (98-107) mmol/L Carbon Dioxide 30 (22-30) mmol/L BUN 13 (7-17) mg/dL Creatinine 0.77 (0.52-1.04) mg/dL Glucose 113 H (74-99) mg/dL Calcium 8.9 (8.4-10.2) mg/dL AST 15 (14-36) U/L ALT 20 (9-52) U/L Alkaline Phosphatase 78 (38-126) U/L Total Protein 6.7 (6.3-8.2) g/dL Albumin 3.6 (3.5-5.0) g/dL Calcium panel 12/04/17 Range/Units 07:41 Calcium 8.9 (8.4-10.2) mg/dL Albumin 3.6 (3.5-5.0) g/dL Pituitary panel 12/04/17 Range/Units 07:41 Sodium 140 (137-145) mmol/L Potassium 4.6 (3.5-5.1) mmol/L Chloride 100 (98-107) mmol/L Carbon Dioxide 30 (22-30) mmol/L BUN 13 (7-17) mg/dL Creatinine 0.77 (0.52-1.04) mg/dL Glucose 113 H (74-99) mg/dL Calcium 8.9 (8.4-10.2) mg/dL Adrenal panel 12/04/17 Range/Units 07:41 Sodium 140 (137-145) mmol/L Potassium 4.6 (3.5-5.1) mmol/L Chloride 100 (98-107) mmol/L Carbon Dioxide 30 (22-30) mmol/L BUN 13 (7-17) mg/dL Creatinine 0.77 (0.52-1.04) mg/dL Glucose 113 H (74-99) mg/dL Calcium 8.9 (8.4-10.2) mg/dL Total Bilirubin 0.5 (0.2-1.3) mg/dL AST 15 (14-36) U/L ALT 20 (9-52) U/L Alkaline Phosphatase 78 (38-126) U/L Total Protein 6.7 (6.3-8.2) g/dL Albumin 3.6 (3.5-5.0) g/dL Assessment and plan Weakness in the lower extremities currently bilaterally and its likely due to morbid obesity Bilateral knee osteoarthritis orthopedic recommended bariatric surgery before any surgical intervention is considered on the knees bilaterally due to the high risk Intractable knee pain Generalized weakness the patient likely needs to be in the rehab Knee pain left knee pain we also has been consulted x-rays has been ordered DVT and GI prophylaxis Anxiety Pain control Recurrent falls and weakness likely due to the morbid obesity Neurology also has been consulted Discharge in 1-2 days to a rehab Objective - Vital Signs Vital signs: Vital Signs Temp 97.4 F L 12/04/17 05:00 Pulse 85 12/04/17 05:00 Resp 17 12/04/17 05:00 BP 165/100 12/04/17 05:00 Pulse Ox 94 L 12/04/17 05:00 Intake & Output 12/03/17 12/04/17 12/04/17 18:59 06:59 18:59 Intake Total 780 Balance 780 Weight 188.241 kg Intake: Oral 780 Other: Voiding Method Bedside Commode Bedside Commode Bedside Commode # Voids 1 2 # Bowel Movements 1 - Labs CBC & Chem 7: 12/04/17 08:54 12/04/17 07:41 Labs: Abnormal Lab Results - Last 24 Hours (Table) 12/04/17 12/04/17 Range/Units 07:41 08:54 RBC 3.58 L (3.80-5.40) m/uL Hgb 9.4 L (11.4-16.0) gm/dL Hct 28.7 L (34.0-46.0) % RDW 16.3 H (11.5-15.5) % Glucose 113 H (74-99) mg/dL
[2017-12-04] MEDS: SODIUM CHLORIDE 0.9% 1,000 ML IV SCH (16:57)
[2017-12-04] MEDS: PRAZOSIN 1 MG CAP PO SCH (21:36)
[2017-12-05] MEDS: MORPHINE SULFATE 2 MG/ML SYRINGE IVP PRN ×2 (01:48→06:22)
[2017-12-05] MEDS: HYDROcodone/APAP 10-325MG 1 EACH TAB PO PRN ×3 (05:04→16:59)
[2017-12-05] MEDS: LEVOTHYROXINE 25 MCG TAB PO SCH (05:52)
[2017-12-05] MEDS: SPIRONOLACTONE 25 MG TAB PO SCH ×2 (08:01→20:26)
[2017-12-05] MEDS: CYCLOBENZAPRINE 10 MG TAB PO SCH ×3 (08:01→21:06)
[2017-12-05] MEDS: GABAPENTIN 300 MG CAP PO SCH ×3 (08:01→21:06)
[2017-12-05] MEDS: ENOXAPARIN 30 MG/0.3 ML SYRINGE SQ SCH (08:01)
[2017-12-05] MEDS: FOLIC ACID 1 MG TAB PO SCH (08:02)
[2017-12-05] MEDS: METOPROLOL TARTRATE 50 MG TAB PO SCH ×2 (08:02→20:26)
[2017-12-05] MEDS: ALLOPURINOL 100 MG TAB PO SCH (08:02)
[2017-12-05] MEDS: ESCITALOPRAM 10 MG TAB PO SCH (08:02)
[2017-12-05 08:30] LABS: Basophils % (A) 0 %; Eosinophils # (A) 0.3 k/uL (0-0.7); Eosinophils % (A) 4 %; HCT 31.5 % (34.0-46.0); HGB 10.1 gm/dL (11.4-16.0); Lymphocytes # (A) 2.1 k/uL (1.0-4.8); Lymphocytes % (A) 25 %; MCH 25.3 pg (25.0-35.0); MCHC 32.1 g/dL (31.0-37.0); MCV 78.8 fL (80.0-100.0); Mean Platelet Volume 6.5; Monocytes # (A) 0.4 k/uL (0-1.0); Monocytes % (A) 4 %; Neutrophils # (A) 5.5 k/uL (1.3-7.7); Neutrophils % (A) 65 %; Platelet Count 338 k/uL (150-450); RDW 15.6 % (11.5-15.5); WBC 8.4 k/uL (3.8-10.6)
[2017-12-05 08:38] LABS: ALT 17 U/L (9-52); AST 15 U/L (14-36); Albumin 3.8 g/dL (3.5-5.0); Alkaline Phosphatase 72 U/L (38-126); Anion Gap 12 mmol/L; Blood Urea Nitrogen 12 mg/dL (7-17); Calcium 9.1 mg/dL (8.4-10.2); Carbon Dioxide 28 mmol/L (22-30); Chloride 99 mmol/L (98-107); Glucose 135 mg/dL (74-99); Potassium 4.6 mmol/L (3.5-5.1); Sodium 139 mmol/L (137-145); Total Bilirubin 0.5 mg/dL (0.2-1.3); Total Protein 6.8 g/dL (6.3-8.2)
[2017-12-05] MEDS: ACETAMINOPHEN TAB 325 MG TAB PO SCH ×2 (13:07→16:58)
[2017-12-05] MEDS: SODIUM CHLORIDE 0.9% 1,000 ML IV SCH (16:52)
--- NOTE | 2017-12-05 18:00 | P.PN ---
Subjective Progress Note Date: 12/05/17 the patient complained of generalized weakness reports that she's been nonambulatory for at least 2 weeks, complaining of severe knee pain. Patient seen by orthopedic surgery and deemed not to be a candidate for any surgical intervention. No documentation on whether the offered intra-articular steroid injection shots. Objective - Vital Signs Vital signs: Vital Signs Temp 98.5 F 12/05/17 13:45 Pulse 86 12/05/17 13:45 Resp 16 12/05/17 15:55 BP 139/85 12/05/17 13:45 Pulse Ox 96 12/05/17 13:45 Intake & Output 12/04/17 12/05/17 12/05/17 18:59 06:59 18:59 Intake Total 700 1080 Balance 700 1080 Intake: Oral 700 1080 Other: Voiding Method Bedside Commode Bedside Commode Bedside Commode # Voids 2 3 2 - Exam Constitutional: No acute distress, conversant, pleasant, morbid obesity Eyes: Anicteric sclerae, moist conjunctiva, no lid-lag PERRLA ENMT: Cranial nerves grossly intact Neck: Supple, FROM, no masses, or JVD No carotid bruits No thyromegaly Lungs: Clear to auscultation Clear to percussion Normal respiratory effort, no accessory muscle use Cardiovascular: Heart regular in rate and rhythm, No murmurs, gallops, or rubs No peripheral edema Abdominal: Soft Nontender, no guarding, rebound or rigidity Abdomen moving with respiration Normoactive bowel sounds No hepatomegaly, No splenomegaly No palpable mass No abdominal wall hernia noted Skin: Normal temperature, tone, texture, turgor No induration No subcutaneous nodules No rash, lesions No ulcers Extremities: Bilateral edema 2+ Psychiatric:Alert and oriented to person, place and time Appropriate affect Intact judgement Neuro: Generalized weakness - Labs CBC & Chem 7: 12/05/17 08:01 12/05/17 08:01 Labs: Abnormal Lab Results - Last 24 Hours (Table) 12/05/17 12/05/17 Range/Units 08:01 08:01 Hgb 10.1 L (11.4-16.0) gm/dL Hct 31.5 L (34.0-46.0) % MCV 78.8 L (80.0-100.0) fL RDW 15.6 H (11.5-15.5) % Glucose 135 H (74-99) mg/dL Assessment and Plan (1) Osteoarthritis of knees, bilateral Narrative/Plan: * Discussed with orthopedic PA the possibility of other therapeutic options such as intra-articular injections, Plan is to have this done tomorrow * Continue with [place] 10/325 every 6 increase Neurontin to 600 3 times a day and schedule Tylenol every 6 hours Current Visit: No Status: Acute Code(s): M17.0 - BILATERAL PRIMARY OSTEOARTHRITIS OF KNEE SNOMED Code(s): 846686491 (2) Impaired gait Current Visit: Yes Status: Acute Code(s): R26.9 - UNSPECIFIED ABNORMALITIES OF GAIT AND MOBILITY SNOMED Code(s): 01060330 (3) Knee pain, bilateral Narrative/Plan: * Secondary to severe osteoarthritis and morbid obesity * Current Visit: Yes Status: Chronic Code(s): M25.561 - PAIN IN RIGHT KNEE; M25.562 - PAIN IN LEFT KNEE SNOMED Code(s): 66141278 (4) Weakness Narrative/Plan: * Continue with physical therapy Current Visit: Yes Status: Chronic Code(s): R53.1 - WEAKNESS SNOMED Code(s ): 12736580 Plan: Plan anticipate discharge tomorrow to [facility] with ongoing physical therapy,
[2017-12-05] MEDS: PRAZOSIN 1 MG CAP PO SCH (20:26)
[2017-12-05 20:40] VITALS: RESP 18
[2017-12-06] MEDS: ACETAMINOPHEN TAB 325 MG TAB PO SCH ×3 (02:24→12:00)
[2017-12-06] MEDS: HYDROcodone/APAP 10-325MG 1 EACH TAB PO PRN ×2 (03:07→09:06)
[2017-12-06 05:19] VITALS: BP 137/77; PULSE 85; TEMP 98.1
[2017-12-06] MEDS: LEVOTHYROXINE 25 MCG TAB PO SCH (05:50)
[2017-12-06] MEDS: METOPROLOL TARTRATE 50 MG TAB PO SCH (07:48)
[2017-12-06] MEDS: GABAPENTIN 300 MG CAP PO SCH (07:48)
[2017-12-06] MEDS: ALLOPURINOL 100 MG TAB PO SCH (07:48)
[2017-12-06] MEDS: ENOXAPARIN 30 MG/0.3 ML SYRINGE SQ SCH (07:48)
[2017-12-06] MEDS: ESCITALOPRAM 10 MG TAB PO SCH (07:49)
[2017-12-06] MEDS: SPIRONOLACTONE 25 MG TAB PO SCH (07:49)
[2017-12-06] MEDS: CYCLOBENZAPRINE 10 MG TAB PO SCH (07:49)
[2017-12-06 09:28] LABS: ALT 22 U/L (9-52); AST 14 U/L (14-36); Albumin 3.6 g/dL (3.5-5.0); Alkaline Phosphatase 73 U/L (38-126); Anion Gap 11 mmol/L; Blood Urea Nitrogen 14 mg/dL (7-17); Carbon Dioxide 30 mmol/L (22-30); Chloride 98 mmol/L (98-107); Glucose 184 mg/dL (74-99); Potassium 4.7 mmol/L (3.5-5.1); Sodium 139 mmol/L (137-145); Total Bilirubin 0.3 mg/dL (0.2-1.3); Total Protein 6.7 g/dL (6.3-8.2)
[2017-12-06 09:50] LABS: Basophils % (A) 0 %; Eosinophils # (A) 0.3 k/uL (0-0.7); Eosinophils % (A) 4 %; HCT 31.4 % (34.0-46.0); Lymphocytes # (A) 2.5 k/uL (1.0-4.8); Lymphocytes % (A) 28 %; MCH 25.6 pg (25.0-35.0); MCHC 31.9 g/dL (31.0-37.0); MCV 80.3 fL (80.0-100.0); Mean Platelet Volume 7.2; Monocytes # (A) 0.4 k/uL (0-1.0); Monocytes % (A) 5 %; Neutrophils # (A) 5.7 k/uL (1.3-7.7); Neutrophils % (A) 63 %; Platelet Count 336 k/uL (150-450); RBC 3.91 m/uL (3.80-5.40); RDW 15.7 % (11.5-15.5)
--- NOTE | 2017-12-06 11:08 | P.PN ---
Subjective Progress Note Date: 12/06/17 Principal diagnosis: Bilateral knee osteoarthritis Patient was examined in today at bedside. I was contacted by the internal medicine doctor regarding other treatment options for the patient's osteoarthritis of the bilateral knees. I had a long discussion with him yesterday regarding the difficulty of a steroid injection at bedside due to the patient's body habitus. Sitting is the patient is not a surgical candidate, I did decide to attempt bilateral knee intra-articular cortisone injections. Did discuss the patient at bedside today that these shots or not a permanent fix, and her symptoms will likely return. Hopefully that'll provide her some pain relief in the acute period. Objective - Vital Signs Vital signs: Vital Signs Temp 98.1 F 12/06/17 05:19 Pulse 85 12/06/17 07:46 Resp 18 12/06/17 07:46 BP 137/77 12/06/17 05:19 Pulse Ox 93 L 12/06/17 05:19 Intake & Output 12/05/17 12/06/17 12/06/17 18:59 06:59 18:59 Other: Voiding Method Bedside Commode Bedside Commode Bedside Commode # Voids 2 2 - Exam physical exam is unchanged since initial evaluation - Labs CBC & Chem 7: 12/06/17 08:25 12/06/17 08:25 Labs: Abnormal Lab Results - Last 24 Hours (Table) 12/06/17 12/06/17 Range/Units 08:25 08:25 Hgb 10.0 L (11.4-16.0) gm/dL Hct 31.4 L (34.0-46.0) % RDW 15.7 H (11.5-15.5) % Glucose 184 H (74-99) mg/dL Assessment and Plan Plan: Assessment: Bilateral knee osteoarthritis Plan: I did proceed with bilateral knee cortisone injections, see procedure note for further detail Discussed with patient again that this is not a permanent fix for her symptoms. Hopefully this will provide her with some relief so she can begin ambulating with attempts to lose weight. We'll be available for any further questions regarding this patient. Time with Patient: Less than 30
--- NOTE | 2017-12-06 11:11 | P.PCN ---
Date of Procedure: 12/06/17 Preoperative Diagnosis: Bilateral knee osteoarthritis Postoperative Diagnosis: Same Procedure(s) Performed: Bilateral knee intra-articular cortisone injections Implants: None Anesthesia: none Surgeon: Kem Brush Estimated Blood Loss (ml): 0 Pathology: none sent Condition: stable Disposition: no change Indications for Procedure: Bilateral knee osteoarthritis with severe pain Description of Procedure: Risk and benefits of the injections were discussed with the patient. She was in good understanding that the severe deformity of her knees make this injection very difficult. She also understands that this is not a permanent fix for symptoms. She agrees with current treatment plan and would like to proceed. Patient was placed in the sitting position at bedside, her legs are dangling over the side of the bed. The knees were then prepped with 1 Betadine swab and one alcohol swabs. I utilized a 22-gauge spinal needle, this was placed along the medial joint line. Aspiration was done bilaterally before injection, no blood was appreciated. 1 mL of 1% plain lidocaine, 1 mL of quarter percent plain Marcaine and 40 mg of Depo-Medrol were then injected intra-articularly. bandages were then placed. Patient tolerated procedure well.
--- NOTE | 2017-12-06 11:21 | P.DS ---
Providers Date of admission: 12/03/17 19:13 Expected date of discharge: 12/06/17 Attending physician: Cristopher Neville MD Consults: 12/01/17 17:06 Consult Physician Urgent Consulting Provider: Barak Jensen Consult Reason/Comments: Left knee pain Do you want consulting provider notified?: Yes 12/01/17 17:54 Consult Physician Urgent Consulting Provider: Angelica Muller Consult Reason/Comments: lower ext weakness Do you want consulting provider notified?: Yes Primary care physician: Pablito Vásquez - Discharge Diagnosis(es) (1) Osteoarthritis of knees, bilateral Current Visit: No Status: Acute (2) Impaired gait Current Visit: Yes Status: Acute (3) Knee pain, bilateral Current Visit: Yes Status: Chronic (4) Weakness Current Visit: Yes Status: Chronic (5) BMI 70 and over, adult Current Visit: No Status: Acute Hospital Course: The patient is a 47-year-old morbidly obese -[place] female that was admitted with generalized weakness, severe bilateral knee pain and impaired gait. The patient reports over the last 2 weeks that she had been nonambulatory due to her weakness. On evaluation of her knee pain and was found the patient had severe bilateral knee osteoarthritis and was a poor surgical candidate due to her body habitus. Despite high doses of narcotics the patient continued to have pain in the knees her Neurontin was titrated up to 600 mg by mouth 3 times a day,and she is continued on [place] 10.325 mg. orthopedic surgery performed a pre-difficult bilateral intra-articular steroid injections to help achieve adequate analgesic therapy. Patient tolerated the procedure well. During hospitalization The patient was seen by physical therapy and occupational therapy, And was requiring ongoing maximum three- person assists in order to complete her ADLs, the patient is unable to transfer independently. She will require ongoing physical therapy and rehab at [facility]. She is discharged in fair in stable condition. The patient will need to have a bariatric surgery referral from her PCP. This discharge process took approximately 35 minutes Patient Condition at Discharge: Fair Plan - Discharge Summary Discharge Rx Participant: No New Discharge Prescriptions: New Acetaminophen Tab [Tylenol] 650 mg PO Q6HR tab Gabapentin [Neurontin] 600 mg PO TID #90 cap Continue Ferrous Sulfate [Iron (65 MG Elemental)] 325 mg PO DAILY Levothyroxine Sodium [Synthroid] 25 mcg PO DAILY Spironolactone 50 mg PO BID ALPRAZolam [Xanax] 0.5 mg PO BID PRN #60 tablet PRN Reason: Anxiety HYDROcodone/APAP 10-325MG [[place] 10-325] 1 tab PO Q6H PRN PRN Reason: Moderate Pain Prazosin [Minipress] 1 mg PO HS Escitalopram [Lexapro] 10 mg PO DAILY Allopurinol [Zyloprim] 200 mg PO DAILY Diclofenac Sodium [Voltaren] 75 mg PO BID Cyclobenzaprine [Flexeril] 10 mg PO TID Potassium Chloride ER [K-Dur 20] 20 meq PO BID Metoprolol Tartrate [Lopressor] 50 mg PO BID Folic Acid 1 mg PO DAILY Azo Bladder Control 1 tab PO BID Discontinued Gabapentin [Neurontin] 300 mg PO BID Discharge Medication List Ferrous Sulfate [Iron (65 MG Elemental)] 325 mg PO DAILY 08/28/14 [History] Levothyroxine Sodium [Synthroid] 25 mcg PO DAILY 05/09/16 [History] Spironolactone 50 mg PO BID 08/10/16 [History] ALPRAZolam [Xanax] 0.5 mg PO BID PRN #60 tablet 10/20/16 [Rx] HYDROcodone/APAP 10-325MG [[place] 10-325] 1 tab PO Q6H PRN 04/12/17 [History] Allopurinol [Zyloprim] 200 mg PO DAILY 04/24/17 [History] Escitalopram [Lexapro] 10 mg PO DAILY 04/24/17 [History] Prazosin [Minipress] 1 mg PO HS 04/24/17 [History] Cyclobenzaprine [Flexeril] 10 mg PO TID 08/02/17 [History] Diclofenac Sodium [Voltaren] 75 mg PO BID 08/02/17 [History] Azo Bladder Control 1 tab PO BID 12/01/17 [History] Folic Acid 1 mg PO DAILY 12/01/17 [History] Metoprolol Tartrate [Lopressor] 50 mg PO BID 12/01/17 [History] Potassium Chloride ER [K-Dur 20] 20 meq PO BID 12/01/17 [History] Acetaminophen Tab [Tylenol] 650 mg PO Q6HR tab 12/06/17 [Rx] Gabapentin [Neurontin] 600 mg PO TID #90 cap 12/06/17 [Rx]
[2017-12-06] MEDS: FOLIC ACID 1 MG TAB PO SCH (12:00)
== END 2017-12-06 13:40 | DRG 554 ==
LOC: EC 12:39 → 5MS5E 17:06 → OBSVTOIN 12-03 19:13 → 5MS5E 12-05 22:46
PROVIDERS: ADMIT Internal Medicine; ATTEND Internal Medicine
PROC: 3E0U33Z Introduction of Anti-inflammatory into Joints, Percutaneous Approach (ICD-10-PCS; principal; 2017-12-03)
PROC: 3E0U3BZ Introduction of Anesthetic Agent into Joints, Percutaneous Approach (ICD-10-PCS; 2017-12-03)
DX: M17.0 Bilateral primary osteoarthritis of knee (principal); Z68.45 Body mass index [BMI] 70 or greater, adult; E66.01 Morbid (severe) obesity due to excess calories; R29.6 Repeated falls; K21.9 Gastro-esophageal reflux disease without esophagitis; F41.9 Anxiety disorder, unspecified; G47.00 Insomnia, unspecified; G89.29 Other chronic pain; E03.9 Hypothyroidism, unspecified; M54.40 Lumbago with sciatica, unspecified side; I25.2 Old myocardial infarction; Z79.890 Hormone replacement therapy; Z79.899 Other long term (current) drug therapy; Z88.5 Allergy status to narcotic agent; Z88.8 Allergy status to other drugs, medicaments and biological substances; Z98.51 Tubal ligation status; Z87.440 Personal history of urinary (tract) infections
CPT/HCPCS: 36415; 70450; 80053; 81001; 82550; 82553; 83735; 84484; 85025; 93005; 96361; 96374; 99285

== ENCOUNTER 2017-12-22 16:46 | Emergency (ER) | payer MEDICARE, OTHER ==
[2017-12-22 16:58] VITALS: RESP 18
--- NOTE | 2017-12-22 17:26 | ED ---
Weakness HPI - General Chief complaint: Weakness Stated complaint: Weakness Time Seen by Provider: 12/22/17 17:03 Source: patient, EMS, RN notes reviewed Mode of arrival: EMS Limitations: physical limitation - History of Present Illness Initial comments: This is a 47-year-old female brought to emergency department by [facility] after they attempted take her home from [facility] on the leg. Patient had no be at home and has difficulty taking care of herself. Her daughter was supposed be at her house but was not present at that time. Patient was brought here because she cannot take care of herself. Patient has no complaints other than difficulty taking care of herself which is a chronic condition. Patient has been advised to seek bariatric surgery secondary to her weight by orthopedics. Patient spent several weeks at [facility] on the leg. Patient has no new complaints. - Related Data Home Medications Medication Instructions Recorded Confirmed Ferrous Sulfate [Iron (65 MG 325 mg PO DAILY 08/28/14 12/22/17 Elemental)] Levothyroxine Sodium [Synthroid] 25 mcg PO DAILY 05/09/16 12/22/17 Spironolactone 50 mg PO BID 08/10/16 12/22/17 Allopurinol [Zyloprim] 200 mg PO DAILY 04/24/17 12/22/17 Escitalopram [Lexapro] 10 mg PO DAILY 04/24/17 12/22/17 Prazosin [Minipress] 1 mg PO HS 04/24/17 12/22/17 Cyclobenzaprine [Flexeril] 10 mg PO TID 08/02/17 12/22/17 Diclofenac Sodium [Voltaren] 75 mg PO BID 08/02/17 12/22/17 Azo Bladder Control 1 tab PO BID 12/01/17 12/22/17 Folic Acid 1 mg PO DAILY 12/01/17 12/22/17 Metoprolol Tartrate [Lopressor] 50 mg PO BID 12/01/17 12/22/17 Potassium Chloride ER [K-Dur 20] 20 meq PO BID 12/01/17 12/22/17 Diazepam [Valium] 5 mg PO HS 12/22/17 12/22/17 Previous Rx's Medication Instructions Recorded ALPRAZolam [Xanax] 0.5 mg PO BID PRN #60 tablet 12/06/17 Acetaminophen Tab [Tylenol] 650 mg PO Q6HR tab 12/06/17 Gabapentin [Neurontin] 600 mg PO TID #90 cap 12/06/17 HYDROcodone/APAP 10-325MG [[place] 1 tab PO Q6H PRN #20 tab 12/06/17 10-325] Allergies Allergy/AdvReac Type Severity Reaction Status Date / Time oxycodone HCl [From Percocet] Allergy Rash/Hives Verified 12/22/17 17:27 procaine HCl [From Novocain] Allergy facial Verified 12/22/17 17:27 swelling Review of Systems ROS Statement: Those systems with pertinent positive or pertinent negative responses have been documented in the HPI. ROS Other: All systems not noted in ROS Statement are negative. Past Medical History Past Medical History: GERD/Reflux, GI Bleed, Myocardial Infarction ([place]), Osteoarthritis (OA), Renal Disease, Syncope Additional Past Medical History / Comment(s): previously charted pt had renal disease-pt unaware of thisObesity, weakness-bedridden for few weeks now, numbness/tingling bilateral feet, chronic phil leg wound/cellulitis currently healed,previous rt leg ulcers now healed, lower leg edema, chronic low back pain with sciatica, tail bone fracture, migraines, pt states she had toxemia with 1st and had a [place], bilateral tinnitis occasionally, bronchitis, sinus problems, gout bilateral feet, carpal tunnel syndrome bilateral wrists, hypothyoid, HTN but only with anxiety, colitis, IBS, chron's, diverticular dx, occasional low blood sugar, nephrolithiasis-pt passed on her own, chronic anemia , lower GI bleed, UTIs."sickle cell" Last Myocardial Infarction Date:: 1989 History of Any Multi-Drug Resistant Organisms: None Reported Past Surgical History: Section, Tubal Ligation Additional Past Surgical History / Comment(s): colonoscopy, 4 c-sections Past Anesthesia/Blood Transfusion Reactions: No Reported Reaction Additional Past Anesthesia/Blood Transfusion Reaction / Comment(s): Pt has received blood in the past and had itching, has had another transfusion since with no reaction. Past Psychological History: Anxiety Smoking Status: Never smoker - Past Family History Father History Unknown: Yes Additional Family Medical History / Comment(s): Pt was adopted and does not know parents/family medical hx. General Exam Limitations: physical limitation General appearance: alert, in no apparent distress, obese Neck exam: Present: normal inspection. Absent: tenderness, meningismus, lymphadenopathy Respiratory exam: Present: normal lung sounds bilaterally. Absent: respiratory distress, wheezes, rales, rhonchi, stridor Cardiovascular Exam: Present: regular rate, normal rhythm, normal heart sounds. Absent: systolic murmur, diastolic murmur, rubs, gallop, clicks GI/Abdominal exam: Present: soft, normal bowel sounds. Absent: distended, tenderness, guarding, rebound, rigid Neurological exam: Present: alert, oriented X3, CN II-XII intact Skin exam: Present: warm, dry, intact, normal color. Absent: rash Course Vital Signs 12/22/17 16:53 Temperature 97.7 F Pulse Rate 96 Respiratory 18 Rate Blood Pressure 162/66 O2 Sat by Pulse 94 L Oximetry Medical Decision Making - Medical Decision Making 47-year-old female was brought to emergency department for care because no one was at her home after discharge from [facility]. Patient's daughter will be at the patient's house and visiting nurses were contacted and they will be out in the morning for care and further treatment. Patient has no new injuries no new complaints. Patient will be discharged. Disposition Clinical Impression: Decreased activities of daily living (ADL), Morbidly obese Disposition: HOME SELF-CARE Condition: Stable Instructions: Weight Management (ED) Additional Instructions: Please return to the Emergency Department if symptoms worsen or any other concerns. Is patient prescribed a controlled substance at d/c from ED?: No Referrals: Joseph Gallagher MD [Primary Care Provider] - 1-2 days Time of Disposition: 18:31
[2017-12-22 20:14] VITALS: BP 152/66; PULSE 98; TEMP 97
== END 2017-12-22 20:17 | disposition home or self-care (01) ==
LOC: EC 16:46
DX: R68.89 Other general symptoms and signs (principal); E66.01 Morbid (severe) obesity due to excess calories; Z68.44 Body mass index [BMI] 60.0-69.9, adult; I25.2 Old myocardial infarction; M19.90 Unspecified osteoarthritis, unspecified site; E03.9 Hypothyroidism, unspecified; I10 Essential (primary) hypertension; F41.9 Anxiety disorder, unspecified; Z79.899 Other long term (current) drug therapy; Z88.8 Allergy status to other drugs, medicaments and biological substances
CPT/HCPCS: 99284

== ENCOUNTER 2017-12-28 16:28 | Inpatient (IN) | payer MEDICARE, OTHER ==
[2017-12-28] MEDS ORDERED: SODIUM CHLORIDE 0.9% 1,000 ML IV STA ×2 (17:06)
[2017-12-28] MEDS ORDERED: KETOROLAC 30 MG/ML 1 ML VIAL IVP STA (17:06)
[2017-12-28] MEDS ORDERED: LORazepam 1 MG TAB PO STA (17:13)
--- NOTE | 2017-12-28 17:16 | ED ---
Abdominal Pain HPI - General Chief Complaint: Abdominal Pain Stated Complaint: PAIN Time Seen by Provider: 12/28/17 16:58 Source: patient, EMS, RN notes reviewed, old records reviewed Mode of arrival: EMS - History of Present Illness Initial Comments: 37-year-old female presents emergency department today chief complaint of being out of her anxiety and pain Medications the past 2 days. She has recently discharged On Monday from [facility], and has been home. She's been out for the past 2 days. Patient claims that she started to have some chest pain towards her back, and right lower quadrant and left lower quadrant abdominal pain. She reports the pain has been going to her back. She denies any fever or chills. Patient reports that she lacks sharp episodes of stabbing pain which caused her to be short of breath. She is immobile and bedbound. - Related Data Home Medications Medication Instructions Recorded Confirmed Ferrous Sulfate [Iron (65 MG 325 mg PO DAILY 08/28/14 12/22/17 Elemental)] Levothyroxine Sodium [Synthroid] 25 mcg PO DAILY 05/09/16 12/22/17 Spironolactone 50 mg PO BID 08/10/16 12/22/17 Allopurinol [Zyloprim] 200 mg PO DAILY 04/24/17 12/22/17 Escitalopram [Lexapro] 10 mg PO DAILY 04/24/17 12/22/17 Prazosin [Minipress] 1 mg PO HS 04/24/17 12/22/17 Cyclobenzaprine [Flexeril] 10 mg PO TID 08/02/17 12/22/17 Diclofenac Sodium [Voltaren] 75 mg PO BID 08/02/17 12/22/17 Azo Bladder Control 1 tab PO BID 12/01/17 12/22/17 Folic Acid 1 mg PO DAILY 12/01/17 12/22/17 Metoprolol Tartrate [Lopressor] 50 mg PO BID 12/01/17 12/22/17 Potassium Chloride ER [K-Dur 20] 20 meq PO BID 12/01/17 12/22/17 Diazepam [Valium] 5 mg PO HS 12/22/17 12/22/17 Previous Rx's Medication Instructions Recorded ALPRAZolam [Xanax] 0.5 mg PO BID PRN #60 tablet 12/06/17 Acetaminophen Tab [Tylenol] 650 mg PO Q6HR tab 12/06/17 Gabapentin [Neurontin] 600 mg PO TID #90 cap 12/06/17 HYDROcodone/APAP 10-325MG [[place] 1 tab PO Q6H PRN #20 tab 12/06/17 10-325] Allergies Allergy/AdvReac Type Severity Reaction Status Date / Time oxycodone HCl [From Percocet] Allergy Rash/Hives Verified 12/28/17 16:33 procaine HCl [From Novocain] Allergy facial Verified 12/28/17 16:33 swelling Review of Systems ROS Statement: Those systems with pertinent positive or pertinent negative responses have been documented in the HPI. ROS Other: All systems not noted in ROS Statement are negative. Past Medical History Past Medical History: GERD/Reflux, GI Bleed, Myocardial Infarction (MS), Osteoarthritis (OA), Renal Disease, Syncope Additional Past Medical History / Comment(s): previously charted pt had renal disease-pt unaware of thisObesity, weakness-bedridden for few weeks now, numbness/tingling bilateral feet, chronic phil leg wound/cellulitis currently healed,previous rt leg ulcers now healed, lower leg edema, chronic low back pain with sciatica, tail bone fracture, migraines, pt states she had toxemia with 1st and had a MS, bilateral tinnitis occasionally, bronchitis, sinus problems, gout bilateral feet, carpal tunnel syndrome bilateral wrists, hypothyoid, HTN but only with anxiety, colitis, IBS, chron's, diverticular dx, occasional low blood sugar, nephrolithiasis-pt passed on her own, chronic anemia , lower GI bleed, UTIs."sickle cell" Last Myocardial Infarction Date:: 1989 History of Any Multi-Drug Resistant Organisms: None Reported Past Surgical History: Section, Tubal Ligation Additional Past Surgical History / Comment(s): colonoscopy, 4 c-sections Past Anesthesia/Blood Transfusion Reactions: No Reported Reaction Additional Past Anesthesia/Blood Transfusion Reaction / Comment(s): Pt has received blood in the past and had itching, has had another transfusion since with no reaction. Past Psychological History: Anxiety Smoking Status: Never smoker Past Alcohol Use History: None Reported Past Drug Use History: None Reported - Past Family History Father History Unknown: Yes Additional Family Medical History / Comment(s): Pt was adopted and does not know parents/family medical hx. General Exam - General Exam Comments Initial Comments: Is a 47-year-old female morbidly obese. Patient poor she is bedridden. General appearance: alert, in no apparent distress Head exam: Present: atraumatic, normocephalic, normal inspection Eye exam: Present: normal appearance, PERRL, EOMI. Absent: scleral icterus, conjunctival injection, periorbital swelling ENT exam: Present: normal exam, mucous membranes moist Neck exam: Present: normal inspection. Absent: tenderness, meningismus, lymphadenopathy Respiratory exam: Present: decreased breath sounds. Absent: respiratory distress, wheezes, rales, rhonchi, stridor Cardiovascular Exam: Present: normal rhythm, tachycardia, normal heart sounds. Absent: regular rate, systolic murmur, diastolic murmur, rubs, gallop, clicks GI/Abdominal exam: Present: soft, tenderness (minimal left lower quadrant tenderness.), normal bowel sounds. Absent: distended, guarding, rebound, rigid Extremities exam: Present: normal inspection, full ROM, normal capillary refill. Absent: tenderness, pedal edema, joint swelling, calf tenderness Back exam: Present: normal inspection Neurological exam: Present: alert, oriented X3, CN II-XII intact Course Vital Signs 12/28/17 12/28/17 12/28/17 16:33 17:30 19:16 Pulse Rate 119 H 64 120 H Respiratory 16 16 16 Rate Blood Pressure 121/68 136/97 146/66 O2 Sat by Pulse 95 100 99 Oximetry 12/28/17 20:31 Pulse Rate 109 H Respiratory 17 Rate Blood Pressure 134/71 O2 Sat by Pulse 100 Oximetry - Reevaluation(s) Reevaluation #1: 12/28/17 17:34 Visit Patient started to pain. She is complaining of some left-sided shoulder and back pain. Complaining of spasms. She is in 1 mg of Ativan. Medical Decision Making - Medical Decision Making This patient's a 47-year-old morbidly obese female who is bedbound. She complains today of left-sided chest pain as well as some episodes of abdominal pain. She reports that the pain radiates towards her back and into her shoulder. Also completes occasional right-sided chest pain. Initially Patient reports that she's been out of her pain medicine and anxiety medicine for the past 2 days. We did do some lab work. I'm concerned the Patient was quite tachycardic with the chest pain did check a d-dimer. D-dimer was positive. CT imaging chest was completed and shows evidence of a right-sided PE. Patient was started on high intensity heparin. She'll be admitted at the hospital this time. Patient informed of all results. - Lab Data Result diagrams: 12/28/17 16:50 12/28/17 16:50 Lab Results 12/28/17 12/28/17 12/28/17 Range/Units 16:50 16:50 16:50 WBC 9.7 (3.8-10.6) k/uL RBC 4.46 (3.80-5.40) m/uL Hgb 11.5 (11.4-16.0) gm/dL Hct 36.3 (34.0-46.0) % MCV 81.2 (80.0-100.0) fL MCH 25.9 (25.0-35.0) pg MCHC 31.9 (31.0-37.0) g/dL RDW 16.5 H (11.5-15.5) % Plt Count 382 (150-450) k/uL Neutrophils % 59 % Lymphocytes % 31 % Monocytes % 6 % Eosinophils % 2 % Basophils % 1 % Neutrophils # 5.7 (1.3-7.7) k/uL Lymphocytes # 3.0 (1.0-4.8) k/uL Monocytes # 0.6 (0-1.0) k/uL Eosinophils # 0.2 (0-0.7) k/uL Basophils # 0.1 (0-0.2) k/uL Polychromasia Present Anisocytosis Slight PT (9.0-12.0) sec INR (<1.2) APTT (22.0-30.0) sec D-Dimer (<0.60) mg/L FEU Sodium 142 (137-145) mmol/L Potassium 4.4 (3.5-5.1) mmol/L Chloride 107 (98-107) mmol/L Carbon Dioxide 20 L (22-30) mmol/L Anion Gap 15 mmol/L BUN 27 H (7-17) mg/dL Creatinine 1.46 H (0.52-1.04) mg/dL Est GFR (CKD-EPI)AfAm 50 (>60 ml/min/1.73 sqM) Est GFR (CKD-EPI)NonAf 43 (>60 ml/min/1.73 sqM) Glucose 112 H (74-99) mg/dL Calcium 9.4 (8.4-10.2) mg/dL Total Bilirubin 0.4 (0.2-1.3) mg/dL AST 18 (14-36) U/L ALT 18 (9-52) U/L Alkaline Phosphatase 94 (38-126) U/L Troponin I <0.012 (0.000-0.034) ng/mL Total Protein 7.8 (6.3-8.2) g/dL Albumin 4.3 (3.5-5.0) g/dL Amylase 51 (30-110) U/L Lipase 153 (23-300) U/L Urine Color Urine Appearance (Clear) Urine pH (5.0-8.0) Ur Specific [place] (1.001-1.035) Urine Protein (Negative) Urine Glucose (UA) (Negative) Urine Ketones (Negative) Urine Blood (Negative) Urine Nitrite (Negative) Urine Bilirubin (Negative) Urine Urobilinogen (<2.0) mg/dL Ur Leukocyte Esterase (Negative) Urine RBC (0-5) /hpf Urine WBC (0-5) /hpf Ur Squamous Epith Cells (0-4) /hpf Urine Bacteria (None) /hpf Hyaline Casts (0-2) /lpf Granular Casts (0) /lpf Urine Mucus (None) /hpf 12/28/17 12/28/17 Range/Units 16:50 19:00 WBC (3.8-10.6) k/uL RBC (3.80-5.40) m/uL Hgb (11.4-16.0) gm/dL Hct (34.0-46.0) % MCV (80.0-100.0) fL MCH (25.0-35.0) pg MCHC (31.0-37.0) g/dL RDW (11.5-15.5) % Plt Count (150-450) k/uL Neutrophils % % Lymphocytes % % Monocytes % % Eosinophils % % Basophils % % Neutrophils # (1.3-7.7) k/uL Lymphocytes # (1.0-4.8) k/uL Monocytes # (0-1.0) k/uL Eosinophils # (0-0.7) k/uL Basophils # (0-0.2) k/uL Polychromasia Anisocytosis PT 9.9 (9.0-12.0) sec INR 1.0 (<1.2) APTT 22.8 (22.0-30.0) sec D-Dimer 0.74 H (<0.60) mg/L FEU Sodium (137-145) mmol/L Potassium (3.5-5.1) mmol/L Chloride (98-107) mmol/L Carbon Dioxide (22-30) mmol/L Anion Gap mmol/L BUN (7-17) mg/dL Creatinine (0.52-1.04) mg/dL Est GFR (CKD-EPI)AfAm (>60 ml/min/1.73 sqM) Est GFR (CKD-EPI)NonAf (>60 ml/min/1.73 sqM) Glucose (74-99) mg/dL Calcium (8.4-10.2) mg/dL Total Bilirubin (0.2-1.3) mg/dL AST (14-36) U/L ALT (9-52) U/L Alkaline Phosphatase (38-126) U/L Troponin I (0.000-0.034) ng/mL Total Protein (6.3-8.2) g/dL Albumin (3.5-5.0) g/dL Amylase (30-110) U/L Lipase (23-300) U/L Urine Color Yellow Urine Appearance Cloudy H (Clear) Urine pH 5.0 (5.0-8.0) Ur Specific [place] 1.016 (1.001-1.035) Urine Protein Trace H (Negative) Urine Glucose (UA) Negative (Negative) Urine Ketones Negative (Negative) Urine Blood Small H (Negative) Urine Nitrite Negative (Negative) Urine Bilirubin Negative (Negative) Urine Urobilinogen <2.0 (<2.0) mg/dL Ur Leukocyte Esterase Trace H (Negative) Urine RBC 1 (0-5) /hpf Urine WBC 2 (0-5) /hpf Ur Squamous Epith Cells 2 (0-4) /hpf Urine Bacteria Rare H (None) /hpf Hyaline Casts 37 H (0-2) /lpf Granular Casts 4 (0) /lpf Urine Mucus Rare H (None) /hpf 12/28/17 18:23 EKG performed at 7:30 which is sinus tachycardia, anterior infarct. Ventricular rate of 1111 bpm. MT interval is 140 ms. QRS duration 90 ms. QT QTc is 346/470 ms. - Radiology Data Radiology results: report reviewed EKG shows sinus tachycardia otherwise normal EKG. Retrograde 102 bpm. Pulse 140 ms. QS duration 96 ms. QT QTc is 344/440 ms. No evidence of ST elevation or T-wave inversion. No speech or ventricular arrhythmias. Chest x-rays reviewed and negative for any acute process. He injured chest shows evidence of a right lower lobe pulmonary embolism. The study was limited due to technical difficulty. Disposition Clinical Impression: Pulmonary embolism, Morbidly obese Disposition: ADMITTED IP TO THIS HOSP Condition: Stable Is patient prescribed a controlled substance at d/c from ED?: No When asked, does pt state using other controlled substances?: No If prescribed controlled substance>3 days was MAPS reviewed?: No If opioid is for acute pain is fill amount 7 days or less?: No If Rx opioid, was Start Talking consent form obtained?: No Referrals: Joseph Gallagher MD [Primary Care Provider] - 1-2 days Time of Disposition: 21:27
[2017-12-28] MEDS ORDERED: LORazepam 2 MG/ML INJ IV STA (17:28)
[2017-12-28] MEDS ORDERED: MORPHINE SULFATE 2 MG/ML SYRINGE IVP STA (17:34)
[2017-12-28 17:36] LABS: Anisocytosis Slight; Basophils # (A) 0.1 k/uL (0-0.2); Basophils % (A) 1 %; Eosinophils # (A) 0.2 k/uL (0-0.7); Eosinophils % (A) 2 %; HCT 36.3 % (34.0-46.0); HGB 11.5 gm/dL (11.4-16.0); Lymphocytes % (A) 31 %; MCH 25.9 pg (25.0-35.0); MCHC 31.9 g/dL (31.0-37.0); MCV 81.2 fL (80.0-100.0); Mean Platelet Volume 6.4; Monocytes # (A) 0.6 k/uL (0-1.0); Monocytes % (A) 6 %; Neutrophils # (A) 5.7 k/uL (1.3-7.7); Neutrophils % (A) 59 %; Platelet Count 382 k/uL (150-450); RBC 4.46 m/uL (3.80-5.40); RDW 16.5 % (11.5-15.5); WBC 9.7 k/uL (3.8-10.6)
[2017-12-28 17:42] LABS: Albumin 4.3 g/dL (3.5-5.0); Calcium 9.4 mg/dL (8.4-10.2); Potassium 4.4 mmol/L (3.5-5.1); Total Bilirubin 0.4 mg/dL (0.2-1.3); Total Protein 7.8 g/dL (6.3-8.2)
[2017-12-28 17:47] LABS: Partial Thromboplastin Time 22.8 sec (22.0-30.0); Prothrombin Time 9.9 sec (9.0-12.0)
[2017-12-28 18:09] LABS: D-Dimer 0.74 mg/L FEU (<0.60)
--- NOTE | 2017-12-28 18:11 | XR ---
EXAMINATION: XR chest 2V DATE AND TIME: 12/28/2017 6:02 PM ORDERING PROVIDER: Abby Hawkins CLINICAL INDICATION: abdominal pain TECHNIQUE: PA and lateral COMPARISON: 11/05/2017 DESCRIPTION: The lungs are clear. The pleural spaces are negative. The cardiac silhouette is not enlarged. The mediastinal and pleural silhouettes are unremarkable. The skeletal structures are intact without focal findings. The soft tissues are prominent. IMPRESSION: NO ACUTE PROCESS.
[2017-12-28 18:56] LABS: Polychromasia Present
[2017-12-28 19:29] LABS: Appearance,Urine Cloudy (Clear); Bacteria,Urine Rare /hpf; Bilirubin,Urine Negative (Negative); Blood,Urine Small (Negative); Color,Urine Yellow; Glucose,Urine (UA) Negative (Negative); Granular Casts,Urine 4 /lpf (0); Hyaline Casts,Urine 37 /lpf (0-2); Ketones,Urine Negative (Negative); Leukocyte Esterase,Urine Trace (Negative); Mucus,Urine Rare /hpf; Nitrite,Urine Negative (Negative); Protein,Urine Trace (Negative); RBC,Urine 1 /hpf (0-5); Specific Gravity,Urine 1.016 (1.001-1.035); Squamous Epithelial Cell,Urine 2 /hpf (0-4); Urobilinogen,Urine <2.0 mg/dL (<2.0); WBC,Urine 2 /hpf (0-5)
--- NOTE | 2017-12-28 21:09 | CT ---
EXAMINATION TYPE: CT chest angio for PE with intravenous contrast and with 3-D reconstructions DATE OF EXAM: 12/28/2017 COMPARISON: HISTORY: Generalized body pain. CT DLP: 715.2 mGycm Automated exposure control for dose reduction was used. CONTRAST: CT Chest for pulmonary embolism performed with with IV Contrast, patient injected with 65ml mL of Isovue 370. 3-D reconstructions were obtained and reviewed. FINDINGS: LIMITATIONS: There is patient motion artifact and body habitus artifact on all images. In addition, o nly 65 mL of Isovue 370 intravenous contrast could be utilized. These factors moderately limit the vi sualization of pulmonary vasculature. AIRWAYS AND LUNGS: The lungs are grossly clear, there is no concerning parenchymal mass or nodule emeka ntified. The tracheobronchial tree is patent. PLEURAL SPACES: Negative. MEDIASTINUM: There is unsatisfactory enhancement of the pulmonary artery and its branches. There is l ow-attenuation within the right lower lung pulmonary artery, but whether this is unopacified blood po ol versus thrombus is difficult to ascertain on this scan. Overall impression is that the PE is indee d present; see image 48 and 119 of series 4. There are no greater than 1 cm hilar or mediastinal lymp h nodes. There is mild cardiomegaly. No pericardial effusion. OTHER: No additional significant abnormality is seen. IMPRESSION: Suspect right lower lobe pulmonary embolism, but technical limitations moderately limits interpretati on.
[2017-12-28] MEDS ORDERED: HEPARIN SODIUM,PORCINE 5,000 UNIT/ML 1 ML VIAL IV PRN (21:12)
[2017-12-28] MEDS ORDERED: HEPARIN SODIUM,PORCINE 10,000 UNIT/ML 1 ML VIAL IV ONE (21:12)
[2017-12-28] MEDS ORDERED: Acetaminophen-Codeine 300-30mg TAB PO PRN (21:27)
[2017-12-28] MEDS ORDERED: NALOXONE 0.4 MG/ML 1 ML VIAL IV PRN (21:27)
[2017-12-28] MEDS ORDERED: ACETAMINOPHEN TAB 325 MG TAB PO PRN (21:27)
[2017-12-28] MEDS: HEPARIN SOD,PORK IN 0.45% NACL 25,000 UNIT in 0.45% NACL 1 500ML.BAG IV SCH (21:40)
[2017-12-28] MEDS: MORPHINE SULFATE 2 MG/ML SYRINGE IV PRN (23:15)
[2017-12-28] MEDS: SODIUM CHLORIDE 0.9% 1,000 ML IV SCH (23:44)
[2017-12-29] MEDS: ALPRAZolam 0.25 MG TAB PO PRN ×3 (04:29→20:19)
[2017-12-29] MEDS: MORPHINE SULFATE 2 MG/ML SYRINGE IV PRN ×3 (05:06→14:59)
[2017-12-29] MEDS: SODIUM CHLORIDE 0.9% 1,000 ML IV SCH ×3 (05:50→20:22)
[2017-12-29 06:51] LABS: Anisocytosis Slight; Basophils % (A) 1 %; Eosinophils # (A) 0.2 k/uL (0-0.7); Eosinophils % (A) 3 %; HCT 31.4 % (34.0-46.0); Lymphocytes # (A) 2.8 k/uL (1.0-4.8); Lymphocytes % (A) 33 %; MCH 25.8 pg (25.0-35.0); MCHC 31.8 g/dL (31.0-37.0); MCV 81.2 fL (80.0-100.0); Mean Platelet Volume 6.7; Monocytes # (A) 0.5 k/uL (0-1.0); Monocytes % (A) 5 %; Neutrophils # (A) 4.8 k/uL (1.3-7.7); Neutrophils % (A) 57 %; Platelet Count 345 k/uL (150-450); RBC 3.86 m/uL (3.80-5.40); RDW 16.6 % (11.5-15.5); WBC 8.4 k/uL (3.8-10.6)
[2017-12-29] MEDS ORDERED: PANTOPRAZOLE 40 MG/10 ML VIAL IV SCH (09:00)
[2017-12-29] MEDS: HEPARIN SOD,PORK IN 0.45% NACL 25,000 UNIT in 0.45% NACL 1 500ML.BAG IV SCH ×2 (09:57→20:14)
--- NOTE | 2017-12-29 14:41 | P.CONS ---
History of Present Illness - Chief Complaint Medical debility - History of Present Illness I had the opportunity to see patient for inpatient rehab consultation regard to medical debility. She was admitted to [facility] yesterday, December 28 with regard abdominal pain. Patient reports that she is in fact here because of PE. CTA however low probability. Chest x-ray demonstrates borderline cardiomegaly. PT and OT prescribed. Previous functional history: Patient apparently known to me as chronic pain patient for bilateral knee pain. Ambulates in wheelchair. Reports normally on [place] 10 4 times a day for chronic pain. H&P indicates patient out of pain and anxiety medications for 2 days prior to admission. Review of Systems Review of systems: ENT: Denies sneezes or discharge. Eyes: Denies discharge or photophobia. Cardiac: Denies chest pain or palpitation. Pulmonary: Denies cough or shortness of breath. Breast: Denies discharge or lumps. Gastrointestinal: Denies nausea, emesis, constipation, diarrhea. Genitourinary: Denies discharge or frequency. Musculoskeletal: Multiple aches and pains, especially knees. Neurologic: Denies motor or sensory change. Endocrine: Denies shakes or sweats. Oncology: Denies cancers. Dermatologic: Denies rash, itching, pruritus. ALLERGY/immunology: Denies sneezes, rashes. Past Medical History Past Medical History: GERD/Reflux, GI Bleed, Hypertension, Myocardial Infarction (NV), Osteoarthritis (OA), Pulmonary Embolus (PE), Renal Disease, Rheumatoid Arthritis (RA), Syncope Additional Past Medical History / Comment(s): Obesity, weakness-bedridden, numbness/tingling bilateral feet, chronic phil leg wound/cellulitis currently healed, previous rt leg ulcers now healed, lower leg edema, chronic low back pain with sciatica, tail bone fracture, migraines, pt states she had toxemia with 1st and had a NV, bilateral tinnitis occasionally, bronchitis, sinus problems, gout bilateral feet, carpal tunnel syndrome bilateral wrists, hypothyoid, HTN but only with anxiety, colitis, IBS, chron's, diverticular dx, occasional low blood sugar, nephrolithiasis-pt passed on her own, chronic anemia , lower GI bleed, UTIs."sickle cell" Last Myocardial Infarction Date:: 1989 History of Any Multi-Drug Resistant Organisms: None Reported Past Surgical History: Section, Tubal Ligation Additional Past Surgical History / Comment(s): colonoscopy, 4 c-sections Past Anesthesia/Blood Transfusion Reactions: No Reported Reaction Additional Past Anesthesia/Blood Transfusion Reaction / Comm: Pt has received blood in the past and had itching, has had another transfusion since with no reaction. Past Psychological History: Anxiety Additional Psychological History / Comment(s): Pt recently taken home from [facility] related to insurance issues. Pt is bedridden, states her daughter lives with her but works often and they barely see each other. Pt states she does not feel safe at home. She states her depression is stable at this time and has no suicidal thoughts or plans. She has had several suicide attempts in the past. Smoking Status: Never smoker Past Alcohol Use History: None Reported Past Drug Use History: None Reported - Past Family History Father History Unknown: Yes Additional Family Medical History / Comment(s): Pt was adopted and does not know parents/family medical hx. Medications and Allergies Home Medications Medication Instructions Recorded Confirmed Type Ferrous Sulfate [Iron (65 MG 325 mg PO DAILY 08/28/14 12/28/17 History Elemental)] Levothyroxine Sodium [Synthroid] 25 mcg PO DAILY 05/09/16 12/28/17 History Spironolactone 50 mg PO BID 08/10/16 12/28/17 History Allopurinol [Zyloprim] 200 mg PO DAILY 04/24/17 12/28/17 History Escitalopram [Lexapro] 10 mg PO DAILY 04/24/17 12/28/17 History Prazosin [Minipress] 1 mg PO HS 04/24/17 12/28/17 History Cyclobenzaprine [Flexeril] 10 mg PO TID 08/02/17 12/28/17 History Diclofenac Sodium [Voltaren] 75 mg PO BID 08/02/17 12/28/17 History Folic Acid 1 mg PO DAILY 12/01/17 12/28/17 History Metoprolol Tartrate [Lopressor] 50 mg PO BID 12/01/17 12/28/17 History Potassium Chloride ER [K-Dur 20] 20 meq PO BID 12/01/17 12/28/17 History Gabapentin [Neurontin] 600 mg PO TID #90 cap 12/06/17 12/28/17 Rx HYDROcodone/APAP 10-325MG [[place] 1 tab PO Q6H PRN #20 tab 12/06/17 12/28/17 Rx 10-325] Diazepam [Valium] 5 mg PO TID 12/22/17 12/28/17 History Acetaminophen Tab [Tylenol] 650 mg PO Q6HR PRN 12/28/17 12/28/17 History Allergies Allergy/AdvReac Type Severity Reaction Status Date / Time oxycodone HCl [From Percocet] Allergy Rash/Hives Verified 12/28/17 21:41 procaine HCl [From Novocain] Allergy facial Verified 12/28/17 21:41 swelling Physical Exam Vitals: Vital Signs Temp Pulse Pulse Resp BP BP Pulse Ox 12/29/17 12:00 124 H 22 138/102 98 12/29/17 08:00 112 H 20 138/85 97 12/29/17 04:00 109 H 18 130/65 98 12/29/17 00:00 103 H 22 12/28/17 22:27 96.8 F L 103 H 20 127/81 100 12/28/17 21:49 97 F L 103 H 22 138/83 100 12/28/17 20:31 109 H 17 134/71 100 12/28/17 19:16 120 H 16 146/66 99 12/28/17 17:30 64 16 136/97 100 12/28/17 16:33 119 H 16 121/68 95 Intake and Output 12/28/17 12/29/17 12/29/17 22:59 06:59 14:59 Intake Total 240 360 736 Balance 240 360 736 Intake: Intake, IV Titration 500 Amount Heparin Sod,Pork in 0.45% 500 NaCl 25,000 unit In 0.45 % NaCl 1 500ml.bag @ 11.6 UNITS/KG/HR 45.77 mls/hr IV .[id number] [facility] Rx#: [id number] Oral 240 360 236 Other: # Voids 1 1 Weight 197.313 kg 166.5 kg Skin: Good color, texture, turgor. General: Morbidly obese build and comfortable appearance. Head: Normocephalic, atraumatic. Eyes: Symmetric. Pupils equal round. Ears: Symmetric. Hearing within normal limits. Mouth: Clear. Neck: Supple. Carotid without bruit. Cardiac: Regular rate and rhythm. Lungs: Clear anteriorly and posteriorly. Abdomen: Soft active nontender, obese. Extremities: Normal tone, obese. Neurological: Mental status: Alert, cooperative, pleasant. Cranial nerves: Symmetric facial tone and trapezius. Motor: Can elevate arms off the bed but not legs, due to weight. Sensation: Intact throughout. DTRs: Symmetric and equal throughout. Mobility: Requires physical assistance for bed mobility. Results CBC & Chem 7: 12/29/17 06:25 12/28/17 16:50 Labs: Abnormal Lab Results - Last 24 Hours (Table) 12/28/17 12/28/17 12/28/17 Range/Units 16:50 16:50 16:50 Hgb (11.4-16.0) gm/dL Hct (34.0-46.0) % RDW 16.5 H (11.5-15.5) % APTT (22.0-30.0) sec D-Dimer 0.74 H (<0.60) mg/L FEU Carbon Dioxide 20 L (22-30) mmol/L BUN 27 H (7-17) mg/dL Creatinine 1.46 H (0.52-1.04) mg/dL Glucose 112 H (74-99) mg/dL Urine Appearance (Clear) Urine Protein (Negative) Urine Blood (Negative) Ur Leukocyte Esterase (Negative) Urine Bacteria (None) /hpf Hyaline Casts (0-2) /lpf Urine Mucus (None) /hpf 12/28/17 12/29/17 12/29/17 Range/Units 19:00 06:25 06:25 Hgb 10.0 L D (11.4-16.0) gm/dL Hct 31.4 L (34.0-46.0) % RDW 16.6 H (11.5-15.5) % APTT 70.3 H (22.0-30.0) sec D-Dimer (<0.60) mg/L FEU Carbon Dioxide (22-30) mmol/L BUN (7-17) mg/dL Creatinine (0.52-1.04) mg/dL Glucose (74-99) mg/dL Urine Appearance Cloudy H (Clear) Urine Protein Trace H (Negative) Urine Blood Small H (Negative) Ur Leukocyte Esterase Trace H (Negative) Urine Bacteria Rare H (None) /hpf Hyaline Casts 37 H (0-2) /lpf Urine Mucus Rare H (None) /hpf Assessment and Plan (1) Pulmonary embolism Current Visit: Yes Status: Acute Code(s): I26.99 - OTHER PULMONARY EMBOLISM WITHOUT ACUTE COR PULMONALE SNOMED Code(s): 91994547 (2) Abdominal pain Current Visit: No Status: Acute Code(s): R10.9 - UNSPECIFIED ABDOMINAL PAIN SNOMED Code(s): 99559262 Plan: Impression: 1. Medical debility. 2. PE. 3. Abdominal pain. 4. Morbid obesity 5. Chronic pain related polyarthritis. 6. Hypertension. 7. History of NV and syncope. 8. Rheumatoid arthritis. 9. Chronic kidney disease. Comments and plan: At this time PT and OT are ongoing. Follow therapies with yourself. Patient reports that she is a chronic pain patient of mine. Will assume chronic pain management upon discharge. Must review prescription dates.
[2017-12-29] MEDS ORDERED: ACETAMINOPHEN TAB 325 MG TAB PO PRN (15:34)
[2017-12-29] MEDS ORDERED: DIAZEPAM 5 MG TAB PO SCH (16:00)
--- NOTE | 2017-12-29 16:37 | HP ---
HISTORY AND PHYSICAL DATE OF ADMISSION: 12/28/2017 PRESENTING COMPLAINT: Weak and tired. HISTORY OF PRESENTING COMPLAINT: This is a 47-year-old patient who has just switched over to [facility]. Patient was in the hospital and was discharged on 12/06/17 to [facility] by Dr. Khan from [facility]. On that admission, patient was seen by Dr. Jensen for bilateral knee pain. Intra-articular injection was carried out. The patient was having trouble with balance because of arthritis and transferred to [facility]. Patient was transferred from [facility], discharged to home. Patient's chronic stable medical conditions otherwise include GERD, hypertension, prior history of [place], rheumatoid arthritis, morbid obesity, chronic pain. Patient tells me it is difficult for her to walk. On direct questioning, patient said the EMS dropped her off in a bed and she had remained in bed for one week; she had some help from her daughter. Patient states that she ran out of her pain medications. On questioning, she said she was given 3 days of pain medications. When I asked her who was giving her pain medications before, she said it was Dr. Pablito Vásquez and Dr. Ortiz. Patient's appetite has been fair. Patient is somewhat anxious, is not direct with a lot of questioning. distribution operations manager, Hermann Sutton, was present. Her main problem, she states, is her pain medications. Otherwise appetite is good. No trouble with her bowels. REVIEW OF SYSTEMS: CONSTITUTIONAL: None. HEENT: None. RESPIRATORY: None. CARDIOVASCULAR: None. GASTROINTESTINAL: Some heartburn. GENITOURINARY: None. MUSCULOSKELETAL: She states she has pain in multiple joints, hands, legs, back, shoulders. HEMATOLOGICAL: None. LYMPHATICS: None. PSYCHIATRY: Anxious. NEUROLOGICAL: Some numbness and tingling in hands and feet. PAST MEDICAL HISTORY: 1. GERD. 2. GI bleed. 3. Hypertension. 4. Myocardial infarction. 5. Osteoarthritis. 6. PE. 7. Rheumatoid arthritis. 8. Morbid obesity. 9. Lower extremity wounds that have healed. 10.Lower extremity edema. 11.Chronic low back pain with sciatica. 12.Some migraine. 13.Carpal tunnel syndrome. 14.Hypothyroid. 15.Irritable bowel syndrome. 16.Diverticulosis. 17.Kidney stones. 18.Chronic anemia. 19.Possible sickle cell. PAST SURGICAL HISTORY: 1. . 2. Tubal ligation. 3. Colonoscopy. SOCIAL HISTORY: Patient states she has been in bed since she has come back from [facility]. Review of the last note that prior to the last admission patient actually was walking. No smoking. No alcohol. FAMILY HISTORY: Patient is adopted. HOME MEDICATIONS: As listed: 1. Valium 5 mg p.o. t.i.d. 2. Aldactone 50 mg p.o. b.i.d. 3. Prazosin 1 mg p.o. at bedtime. 4. Potassium 20 mEq p.o. b.i.d. 5. Lopressor 50 mg b.i.d. 6. Synthroid 25 mcg a day. 7. [place] 10 one tablet q.6 p.r.n. 8. Neurontin 600 mg t.i.d. 9. Folic acid 1 mg p.o. daily. 10.Iron 325 mg p.o. daily. 11.Lexapro 10 mg p.o. daily. 12.Voltaren 75 mg p.o. b.i.d. 13.Flexeril 10 mg p.o. t.i.d. 14.Allopurinol 200 mg p.o. daily. 15.Tylenol 650 mg q.6 p.r.n. ALLERGIES: 1. OXYCODONE. 2. PROCAINE. PHYSICAL EXAMINATION: VITAL SIGNS ON PRESENTATION: Afebrile, pulse 103, respiration 22, blood pressure 138/83, pulse ox 100% on room air. GENERAL APPEARANCE: Morbidly obese; BMI 61.1. Lying in bed, a bit anxious-appearing. EYES: Pupils equal. Conjunctivae normal. HEENT: External appearance of nose and ears normal. Oral cavity normal. NECK: Short, thick. JVD unable to assess. Mass not palpable. RESPIRATORY: Effort normal. LUNGS: Distant breath sounds. CARDIOVASCULAR: Heart sounds muffled. Minimal edema. ABDOMEN: Distended, soft. Liver and spleen not palpable. LYMPHATIC: No lymph node palpable in neck or axillae. PSYCHIATRY: Alert and oriented x3. Mood and affect anxious-appearing. NEUROLOGICAL: Pupils equal. Cranial nerves grossly intact. Power and sensation grossly intact. INVESTIGATIONS: White count 9.7, hemoglobin 11.5, potassium 4.4, BUN 27, creatinine 1.46. Chest CTA, questionable PE. EKG sinus tachycardia. ASSESSMENT: 1. Questionable pulmonary embolism in a patient who has got decreased ambulation and activity. Will wait for the determination and workup to check whether actually she has a pulmonary embolism or not. I will order ultrasounds of both lower extremities and get a pulmonary opinion. In the meantime, patient is on IV heparin. 2. IV heparin monitoring. 3. Bilateral knee severe osteoarthritis with recent intra-articular injection by Dr. Jensen. Patient requested a second consultation. 4. Chronic pain syndrome. 5. Hypothyroidism. 6. Morbid obesity with body mass index greater than 60. 7. Peripheral neuropathy, idiopathic. 8. Depression not otherwise specified, controlled. 9. Chronic gait dysfunction. PLAN: Make a consultation to Pulmonary. Get their opinion whether pulmonary embolism. Will do ultrasound of both the lower extremities. Also consult Dr. Ortiz for pain assessment and treatment. distribution operations manager is involved. Patient definitely seems to have social issues in terms of care being taken and what she can do and what insurance coverage allows. Will let cyanide case hardener and vp digital marketing social media and crm determine the same. MMODL / IJN: [id number] /
--- NOTE | 2017-12-29 16:51 | US ---
EXAMINATION TYPE: US venous doppler duplex LE DATE OF EXAM: 12/29/2017 4:41 PM COMPARISON: Previous study dated 04/13/2017. CLINICAL HISTORY: r/o dvt. SIDE PERFORMED: Bilateral TECHNIQUE: The lower extremity deep venous system is examined utilizing real time linear array sonog ariel with graded compression, doppler sonography and color-flow sonography. VESSELS IMAGED: External Iliac Vein (EIV) Common Femoral Vein Deep Femoral Vein Greater Saphenous Vein * Femoral Vein Popliteal Vein Small Saphenous Vein * Proximal Calf Veins-not seen (* superficial vessels) Patient 5'5" 367lbs. Patient done portably and unable to move in order to help tire fabric inspector. Exam tech nically limited and difficult. Right Leg: Appears negative for DVT, in this somewhat limited evaluation. Unable to see distal femoral v without color for compressions view. Left Leg: Appears negative for DVT, in this somewhat limited evaluation. Only able to see femoral v prox and mid in upper leg for compression views due to patient position/ob esity/tire fabric inspector reach. No popliteal fossa lesion is seen. IMPRESSION: LIMITED EXAMINATION DEMONSTRATING NO ACUTE DVT IN EITHER LEG.
[2017-12-29 17:03] LABS: Glucose,Whole Blood 95 mg/dL (75-99)
[2017-12-29] MEDS: GABAPENTIN 300 MG CAP PO SCH ×2 (17:09→20:18)
[2017-12-29] MEDS: FOLIC ACID 1 MG TAB PO SCH (17:10)
[2017-12-29] MEDS: FERROUS SULFATE 325 MG TAB PO SCH (17:10)
[2017-12-29] MEDS: ESCITALOPRAM 10 MG TAB PO SCH (17:10)
[2017-12-29] MEDS: LEVOTHYROXINE 25 MCG TAB PO SCH (17:10)
[2017-12-29] MEDS: ALLOPURINOL 100 MG TAB PO SCH (17:10)
[2017-12-29] MEDS: CYCLOBENZAPRINE 10 MG TAB PO SCH ×2 (17:10→20:18)
--- NOTE | 2017-12-29 18:52 | P.CNPUL ---
History of Present Illness Consult date: 12/29/17 Reason for consult: abnormal CXR/CT History of present illness: A 47-year-old morbidly obese -[place]wegian female patient, BMI of 61.1, who has been maintained on chronic painkillers in the form of Swisher 10 and she also states that she has been on anxiety medication including 5 mg of Valium 3 times a day in addition to on and off Xanax to be taken on a when necessary basis. She has become more debilitated over the years due to her morbid obesity and ongoing weight gain. She has severe arthritic changes in the lower extremities and the knees and currently she is unable to ambulate properly. She has chronic pain and she is very much been dependent on narcotic medications and painkillers. She also takes Neurontin 600 milligrams by mouth daily and cyclobenzaprine 10 mg by mouth twice a day. The patient was seen by visiting physician. She apparently was cut off from her narcotics and anxiolytics and over the past 2 days condition got worse and the patient started having diffuse body aches involving the head/migraine, neck, shoulders, knees, chest, abdomen. The patient states that her entire body was aching and she was gradually getting more anxious. No pleuritic chest pain. No hemoptysis. No swelling lower extremities. She decided to come into the emergency department and as part of her workup a CT angios the chest was done which was reported to be abnormal and the patient was admitted to the hospital with a diagnosis of pulmonary embolism. I was consulted in this regard. Patient is currently on room air and her pulse ox is around 98-100%. No previous history of DVT or pulmonary embolism. Obviously the CAT scan of the chest is suboptimal due to satisfactory enhancement of the pulmonary artery and its branches. There is low attenuation within the pulmonary arteries bilaterally. No pericardial effusion. There is mild cardiomegaly. Doppler of the lower extremity was a limited examination and showed no evidence of any DVT in either legs. Otherwise , the rest of the blood work is within normal limits and the patient is currently on IV heparin. I see her creatinine from the time of admission is around 1.4 and her cardiac enzymes are negative. She denies having any specific complaints. Her main concern is to get her narcotic medications and anxiolytics. He is sedentary. No history of any cardiac disease. No shortness of breath. No nausea vomiting or abdominal pain. Altered mentation. No other complaints otherwise. She has received intra-articular joint injection at the knees regarding severe degenerative arthritis. She has also has sickle cell trait and has neurogenic bladder and previous history of right lower extremity wound that has been healed for now. Review of Systems Constitutional: Reports chronic pain, Reports weakness, Reports weight gain Eyes: denies blurred vision, denies bulging eye, denies decreased vision Ears: deny: decreased hearing, ear discharge, earache Ears, nose, mouth and throat: Denies headache, Denies sore throat Cardiovascular: Denies chest pain, Denies shortness of breath Respiratory: Denies cough Gastrointestinal: Denies abdominal pain, Denies diarrhea, Denies nausea, Denies vomiting Genitourinary: Reports as per HPI Musculoskeletal: Reports frequent falls, Reports gait dysfunction, Reports limitation of motion, Reports low back pain, Reports muscle weakness, Reports neck pain Musculoskeletal: absent: ankle pain, ankle stiffness, ankle swelling Integumentary: Denies pruritus, Denies rash Neurological: Reports as per HPI, Reports gait dysfunction, Reports weakness Psychiatric: Denies anxiety, Denies depression Endocrine: Denies fatigue, Denies weight change Hematologic/Lymphatic: Reports as per HPI Allergic/Immunologic: Reports as per HPI Past Medical History Past Medical History: GERD/Reflux, GI Bleed, Hypertension, Myocardial Infarction ([place]), Osteoarthritis (OA), Pulmonary Embolus (PE), Renal Disease, Rheumatoid Arthritis (RA), Syncope Additional Past Medical History / Comment(s): Obesity, weakness-bedridden, numbness/tingling bilateral feet, chronic phil leg wound/cellulitis currently healed, previous rt leg ulcers now healed, lower leg edema, chronic low back pain with sciatica, tail bone fracture, migraines, pt states she had toxemia with 1st and had a [place], bilateral tinnitis occasionally, bronchitis, sinus problems, gout bilateral feet, carpal tunnel syndrome bilateral wrists, hypothyoid, HTN but only with anxiety, colitis, IBS, chron's, diverticular dx, occasional low blood sugar, nephrolithiasis-pt passed on her own, chronic anemia , lower GI bleed, UTIs."sickle cell" Last Myocardial Infarction Date:: 1989 History of Any Multi-Drug Resistant Organisms: None Reported Past Surgical History: Section, Tubal Ligation Additional Past Surgical History / Comment(s): colonoscopy, 4 c-sections Past Anesthesia/Blood Transfusion Reactions: No Reported Reaction Additional Past Anesthesia/Blood Transfusion Reaction / Comment(s): Pt has received blood in the past and had itching, has had another transfusion since with no reaction. Past Psychological History: Anxiety Additional Psychological History / Comment(s): Pt recently taken home from [facility] related to insurance issues. Pt is bedridden, states her daughter lives with her but works often and they barely see each other. Pt states she does not feel safe at home. She states her depression is stable at this time and has no suicidal thoughts or plans. She has had several suicide attempts in the past. Smoking Status: Never smoker Past Alcohol Use History: None Reported Past Drug Use History: None Reported - Past Family History Father History Unknown: Yes Additional Family Medical History / Comment(s): Pt was adopted and does not know parents/family medical hx. Medications and Allergies Home Medications Medication Instructions Recorded Confirmed Type Ferrous Sulfate [Iron (65 MG 325 mg PO DAILY 08/28/14 12/28/17 History Elemental)] Levothyroxine Sodium [Synthroid] 25 mcg PO DAILY 05/09/16 12/28/17 History Spironolactone 50 mg PO BID 08/10/16 12/28/17 History Allopurinol [Zyloprim] 200 mg PO DAILY 04/24/17 12/28/17 History Escitalopram [Lexapro] 10 mg PO DAILY 04/24/17 12/28/17 History Prazosin [Minipress] 1 mg PO HS 04/24/17 12/28/17 History Cyclobenzaprine [Flexeril] 10 mg PO TID 08/02/17 12/28/17 History Diclofenac Sodium [Voltaren] 75 mg PO BID 08/02/17 12/28/17 History Folic Acid 1 mg PO DAILY 12/01/17 12/28/17 History Metoprolol Tartrate [Lopressor] 50 mg PO BID 12/01/17 12/28/17 History Potassium Chloride ER [K-Dur 20] 20 meq PO BID 12/01/17 12/28/17 History Gabapentin [Neurontin] 600 mg PO TID #90 cap 12/06/17 12/28/17 Rx HYDROcodone/APAP 10-325MG [Swisher 1 tab PO Q6H PRN #20 tab 12/06/17 12/28/17 Rx 10-325] Diazepam [Valium] 5 mg PO TID 12/22/17 12/28/17 History Acetaminophen Tab [Tylenol] 650 mg PO Q6HR PRN 12/28/17 12/28/17 History Allergies Allergy/AdvReac Type Severity Reaction Status Date / Time oxycodone HCl [From Percocet] Allergy Rash/Hives Verified 12/28/17 21:41 procaine HCl [From Novocain] Allergy facial Verified 12/28/17 21:41 swelling Physical Exam Vitals: Vital Signs Temp Pulse Pulse Resp BP BP Pulse Ox 12/29/17 16:00 111 H 18 130/100 100 12/29/17 12:00 124 H 22 138/102 98 12/29/17 08:00 112 H 20 138/85 97 12/29/17 04:00 109 H 18 130/65 98 12/29/17 00:00 103 H 22 12/28/17 22:27 96.8 F L 103 H 20 127/81 100 12/28/17 21:49 97 F L 103 H 22 138/83 100 12/28/17 20:31 109 H 17 134/71 100 12/28/17 19:16 120 H 16 146/66 99 Intake and Output 12/29/17 12/29/17 12/29/17 06:59 14:59 22:59 Intake Total 360 736 Balance 360 736 Intake: Intake, IV Titration 500 Amount Heparin Sod,Pork in 0.45% 500 NaCl 25,000 unit In 0.45 % NaCl 1 500ml.bag @ 11.6 UNITS/KG/HR 45.77 mls/hr IV .[id number] [facility] Rx#: [id number] Oral 360 236 Other: # Voids 1 Weight 166.5 kg Morbid obesity with a BMI of 61.1, resting comfortably in bed, nonacute distress Head exam was generally normal. There was no scleral icterus or corneal arcus. Mucous membranes were moist. Neck was supple and without jugular venous distension, thyromegaly, or carotid bruits. Carotids were easily palpable bilaterally. There was no adenopathy. The patient has a Mallampati class IV Lungs diminished breath sound bilaterally. No wheezes overall currently crackles at this point in time and the breath sounds are equal and symmetrical Cardiac exam revealed the PMI to be normally situated and sized. The rhythm was regular and no extrasystoles were noted during several minutes of auscultation. The first and second heart sounds were normal and physiologic splitting of the second heart sound was noted. There were no murmurs, rubs, clicks, or gallops. Abdomen is obese and the patient's organs cannot be accurately palpated. There is no direct tenderness hemoptysis or guarding. extremities are large. There is no edema no wounds or any ulceration. Pulses are diminished at the present. No cyanosis or clubbing. Neurologically the patient is awake and alert and there is no focal neurological deficits. Results - Laboratory Findings CBC and BMP: 12/29/17 06:25 12/28/17 16:50 PT/INR, D-dimer PT 9.9 sec (9.0-12.0) 12/28/17 16:50 INR 1.0 (<1.2) 12/28/17 16:50 D-Dimer 0.74 mg/L FEU (<0.60) H 12/28/17 16:50 Abnormal lab findings: Abnormal Labs 12/28/17 12/28/17 12/28/17 16:50 16:50 16:50 Hgb Hct RDW 16.5 H APTT D-Dimer 0.74 H Carbon Dioxide 20 L BUN 27 H Creatinine 1.46 H Glucose 112 H Urine Appearance Urine Protein Urine Blood Ur Leukocyte Esterase Urine Bacteria Hyaline Casts Urine Mucus 12/28/17 12/29/17 12/29/17 19:00 06:25 06:25 Hgb 10.0 L D Hct 31.4 L RDW 16.6 H APTT 70.3 H D-Dimer Carbon Dioxide BUN Creatinine Glucose Urine Appearance Cloudy H Urine Protein Trace H Urine Blood Small H Ur Leukocyte Esterase Trace H Urine Bacteria Rare H Hyaline Casts 37 H Urine Mucus Rare H - Diagnostic Findings CT scan - chest: image reviewed Assessment and Plan Plan: 1 acute withdrawal from narcotics and angiolytic medication as the patient is a maintained on a combination of Swisher and Valium on outpatient basis. The patient has been expressing diffuse body aches and as part of her workup a CT angios the chest was done. The pretest probability for pulmonary embolism was low 90s the patient did not have any pulmonary manifestations to suggest pulmonary embolism and the patient symptoms were rather chronic and most attribute it to her narcotic and benzodiazepine withdrawal. In any rate, the CT of the chest is completely unreliable due to the patient is morbidly obese body habitus and the poor contrast timing. Doppler of the lower extremities negative. 2 morbid obesity 3 kidney failure, chronic kidney injury failure versus acute kidney abnormality/ injury 4 severe degenerative arthritis 5 difficulty mobility due to chronic pain and arthritis and the patient has had a fall history 5 questionable history of myocardial infarction the past 6 chronic migraines 7 irritable bowel syndrome 8 diverticulosis 9 nephrolithiasis 10 sickle cell trait Plan Management of pain and anxiety per medicine. I do not see any indication for pulmonary embolism. Check a baseline d-dimer. Stop anticoagulation and offer this patient DVT prophylaxis. Outpatient follow-up regarding possibility of sleep apnea the patient has typical features of VINCENT.
[2017-12-29 19:27] LABS: D-Dimer 0.59 mg/L FEU (<0.60)
[2017-12-29] MEDS: ETODOLAC 400 MG TAB PO SCH (20:17)
[2017-12-29] MEDS: METOPROLOL TARTRATE 50 MG TAB PO SCH (20:17)
[2017-12-29] MEDS: FAMOTIDINE 20 MG TAB PO SCH (20:17)
[2017-12-29] MEDS: HYDROcodone/APAP 10-325MG 1 EACH TAB PO PRN (20:18)
[2017-12-29] MEDS: POTASSIUM CHLORIDE ER 20 MEQ TAB.ER PO SCH (20:18)
[2017-12-29] MEDS: PRAZOSIN 1 MG CAP PO SCH (20:18)
[2017-12-29] MEDS ORDERED: SPIRONOLACTONE 25 MG TAB PO SCH (21:00)
[2017-12-29] MEDS: HEPARIN SODIUM,PORCINE 5,000 UNIT/ML 1 ML VIAL SQ SCH (23:45)
[2017-12-30] MEDS: HYDROcodone/APAP 10-325MG 1 EACH TAB PO PRN ×3 (03:50→18:30)
[2017-12-30] MEDS: LEVOTHYROXINE 25 MCG TAB PO SCH (05:54)
[2017-12-30] MEDS: SODIUM CHLORIDE 0.9% 1,000 ML IV SCH (05:56)
[2017-12-30 07:45] LABS: Anisocytosis Slight; Basophils % (A) 0 %; Eosinophils # (A) 0.2 k/uL (0-0.7); Eosinophils % (A) 3 %; HCT 31.5 % (34.0-46.0); HGB 9.8 gm/dL (11.4-16.0); Hypochromasia Slight; Lymphocytes # (A) 2.5 k/uL (1.0-4.8); Lymphocytes % (A) 30 %; MCH 25.6 pg (25.0-35.0); MCHC 31.1 g/dL (31.0-37.0); Mean Platelet Volume 6.6; Monocytes # (A) 0.6 k/uL (0-1.0); Monocytes % (A) 7 %; Neutrophils # (A) 4.8 k/uL (1.3-7.7); Neutrophils % (A) 59 %; Platelet Count 337 k/uL (150-450); RBC 3.84 m/uL (3.80-5.40); RDW 16.4 % (11.5-15.5); WBC 8.2 k/uL (3.8-10.6)
[2017-12-30 07:50] LABS: Calcium 8.8 mg/dL (8.4-10.2); Potassium 5.3 mmol/L (3.5-5.1)
--- NOTE | 2017-12-30 09:57 | P.CNOR ---
History of Present Illness - HPI Consult date: 12/30/17 Requesting physician: Fco Owen Consult reason: joint pain (Bilateral knee pain) History of present illness: Was admitted back into the hospital for a diagnosis of pulmonary embolism and verbalized bilateral knee pain. Patient does not report any recent injury. Patient has a history of moderate/severe bilateral knee osteoarthritis and was seen in consultation by myself on her 12/01/17 visit when I was irrigation manager. She underwent bilateral knee steroid injections on 12/06/17 which she reports gave her about 45% improvement of her symptoms. Review of Systems Constitutional: Reports as per HPI Eyes: bilateral as per HPI Past Medical History Past Medical History: GERD/Reflux, GI Bleed, Hypertension, Myocardial Infarction ([place]), Osteoarthritis (OA), Pulmonary Embolus (PE), Renal Disease, Rheumatoid Arthritis (RA), Syncope Additional Past Medical History / Comment(s): Obesity, weakness-bedridden, numbness/tingling bilateral feet, chronic phil leg wound/cellulitis currently healed, previous rt leg ulcers now healed, lower leg edema, chronic low back pain with sciatica, tail bone fracture, migraines, pt states she had toxemia with 1st and had a [place], bilateral tinnitis occasionally, bronchitis, sinus problems, gout bilateral feet, carpal tunnel syndrome bilateral wrists, hypothyoid, HTN but only with anxiety, colitis, IBS, chron's, diverticular dx, occasional low blood sugar, nephrolithiasis-pt passed on her own, chronic anemia , lower GI bleed, UTIs."sickle cell" Last Myocardial Infarction Date:: 1989 History of Any Multi-Drug Resistant Organisms: None Reported Past Surgical History: Section, Tubal Ligation Additional Past Surgical History / Comment(s): colonoscopy, 4 c-sections Past Anesthesia/Blood Transfusion Reactions: No Reported Reaction Additional Past Anesthesia/Blood Transfusion Reaction / Comm: Pt has received blood in the past and had itching, has had another transfusion since with no reaction. Past Psychological History: Anxiety Additional Psychological History / Comment(s): Pt recently taken home from [facility] related to insurance issues. Pt is bedridden, states her daughter lives with her but works often and they barely see each other. Pt states she does not feel safe at home. She states her depression is stable at this time and has no suicidal thoughts or plans. She has had several suicide attempts in the past. Smoking Status: Never smoker Past Alcohol Use History: None Reported Past Drug Use History: None Reported - Past Family History Father History Unknown: Yes Additional Family Medical History / Comment(s): Pt was adopted and does not know parents/family medical hx. Medications and Allergies Home Medications Medication Instructions Recorded Confirmed Type Ferrous Sulfate [Iron (65 MG 325 mg PO DAILY 08/28/14 12/28/17 History Elemental)] Levothyroxine Sodium [Synthroid] 25 mcg PO DAILY 05/09/16 12/28/17 History Spironolactone 50 mg PO BID 08/10/16 12/28/17 History Allopurinol [Zyloprim] 200 mg PO DAILY 04/24/17 12/28/17 History Escitalopram [Lexapro] 10 mg PO DAILY 04/24/17 12/28/17 History Prazosin [Minipress] 1 mg PO HS 04/24/17 12/28/17 History Cyclobenzaprine [Flexeril] 10 mg PO TID 08/02/17 12/28/17 History Diclofenac Sodium [Voltaren] 75 mg PO BID 08/02/17 12/28/17 History Folic Acid 1 mg PO DAILY 12/01/17 12/28/17 History Metoprolol Tartrate [Lopressor] 50 mg PO BID 12/01/17 12/28/17 History Potassium Chloride ER [K-Dur 20] 20 meq PO BID 12/01/17 12/28/17 History Gabapentin [Neurontin] 600 mg PO TID #90 cap 12/06/17 12/28/17 Rx HYDROcodone/APAP 10-325MG [[place] 1 tab PO Q6H PRN #20 tab 12/06/17 12/28/17 Rx 10-325] Diazepam [Valium] 5 mg PO TID 12/22/17 12/28/17 History Acetaminophen Tab [Tylenol] 650 mg PO Q6HR PRN 12/28/17 12/28/17 History Allergies Allergy/AdvReac Type Severity Reaction Status Date / Time oxycodone HCl [From Percocet] Allergy Rash/Hives Verified 12/28/17 21:41 procaine HCl [From Novocain] Allergy facial Verified 12/28/17 21:41 swelling Physical Examination Osteopathic Statement: *. No significant issues noted on an osteopathic structural exam other than those noted in the History and Physical/Consult. Right kneeactive range of motion -2-115. There is some tenderness along the medial joint line. Very difficult to assess any potential effusion given the exceptionally large body habitus. Gentle log rolling of the hip is without pain. There is good perfusion and sensation distally. Homans/Alexandru negative. Left kneeactive range of motion -1/2-115. There is some tenderness along the medial joint line. Very difficult to assess any potential effusion given the exceptionally large body habitus. Gentle log rolling of the hip is without pain. There is good perfusion and sensation distally. Homans/Alexandru negative. Results - Labs Labs: Abnormal Lab Results - Last 24 Hours (Table) 12/29/17 12/30/17 12/30/17 Range/Units 18:50 06:53 06:53 Hgb 9.8 L (11.4-16.0) gm/dL Hct 31.5 L (34.0-46.0) % RDW 16.4 H (11.5-15.5) % APTT 59.0 H (22.0-30.0) sec Potassium 5.3 H (3.5-5.1) mmol/L Chloride 109 H (98-107) mmol/L BUN 22 H (7-17) mg/dL Glucose 104 H (74-99) mg/dL H & H 12/28/17 12/29/17 12/30/17 Range/Units 16:50 06:25 06:53 Hgb 11.5 10.0 L D 9.8 L (11.4-16.0) gm/dL Hct 36.3 31.4 L 31.5 L (34.0-46.0) % Coagulation 12/28/17 Range/Units 16:50 INR 1.0 (<1.2) Result Diagrams: 12/30/17 06:53 12/30/17 06:53 - Diagnostic results Knee x-ray: image reviewed (Images reviewed from 12/01/17bilateral knee moderately severe osteoarthritis) Assessment and Plan Assessment: 1. Right knee osteoarthritis 2. Left knee osteoarthritis 3. Morbid obesity Plan: 1. I recommend pain management modalities-Dr. Ortiz has been consulted 2. I've encouraged the patient to pursue weight loss options-she should discuss this with her primary care physician 3. The patient is not a candidate for any elective orthopedic surgical intervention regarding her knees Time with Patient: Less than 30
[2017-12-30] MEDS: ETODOLAC 400 MG TAB PO SCH ×2 (12:47→22:05)
[2017-12-30] MEDS: ESCITALOPRAM 10 MG TAB PO SCH (12:48)
[2017-12-30] MEDS: ALLOPURINOL 100 MG TAB PO SCH (12:48)
[2017-12-30] MEDS: POTASSIUM CHLORIDE ER 20 MEQ TAB.ER PO SCH ×2 (12:48→22:04)
[2017-12-30] MEDS: METOPROLOL TARTRATE 50 MG TAB PO SCH ×2 (12:48→22:05)
[2017-12-30] MEDS: GABAPENTIN 300 MG CAP PO SCH ×3 (12:48→22:04)
[2017-12-30] MEDS: CYCLOBENZAPRINE 10 MG TAB PO SCH ×3 (12:49→22:05)
[2017-12-30] MEDS: FERROUS SULFATE 325 MG TAB PO SCH (12:49)
[2017-12-30] MEDS: FOLIC ACID 1 MG TAB PO SCH (12:49)
[2017-12-30] MEDS: FAMOTIDINE 20 MG TAB PO SCH ×2 (12:49→22:05)
[2017-12-30] MEDS: HEPARIN SODIUM,PORCINE 5,000 UNIT/ML 1 ML VIAL SQ SCH ×2 (12:58→17:33)
--- NOTE | 2017-12-30 15:22 | P.PN ---
Subjective Progress Note Date: 12/30/17 Principal diagnosis: Acute withdrawal from narcotics and anxiolytics medications. A 47-year-old morbidly obese -[place] female patient, BMI of 61.1, who has been maintained on chronic painkillers in the form of [place] 10 and she also states that she has been on anxiety medication including 5 mg of Valium 3 times a day in addition to on and off Xanax to be taken on a when necessary basis. She has become more debilitated over the years due to her morbid obesity and ongoing weight gain. She has severe arthritic changes in the lower extremities and the knees and currently she is unable to ambulate properly. She has chronic pain and she is very much been dependent on narcotic medications and painkillers. She also takes Neurontin 600 milligrams by mouth daily and cyclobenzaprine 10 mg by mouth twice a day. The patient was seen by visiting physician. She apparently was cut off from her narcotics and anxiolytics and over the past 2 days condition got worse and the patient started having diffuse body aches involving the head/migraine, neck, shoulders, knees, chest, abdomen. The patient states that her entire body was aching and she was gradually getting more anxious. No pleuritic chest pain. No hemoptysis. No swelling lower extremities. She decided to come into the emergency department and as part of her workup a CT angios the chest was done which was reported to be abnormal and the patient was admitted to the hospital with a diagnosis of pulmonary embolism. I was consulted in this regard. Patient is currently on room air and her pulse ox is around 98-100%. No previous history of DVT or pulmonary embolism. Obviously the CAT scan of the chest is suboptimal due to satisfactory enhancement of the pulmonary artery and its branches. There is low attenuation within the pulmonary arteries bilaterally. No pericardial effusion. There is mild cardiomegaly. Doppler of the lower extremity was a limited examination and showed no evidence of any DVT in either legs. Otherwise , the rest of the blood work is within normal limits and the patient is currently on IV heparin. I see her creatinine from the time of admission is around 1.4 and her cardiac enzymes are negative. She denies having any specific complaints. Her main concern is to get her narcotic medications and anxiolytics. He is sedentary. No history of any cardiac disease. No shortness of breath. No nausea vomiting or abdominal pain. Altered mentation. No other complaints otherwise. She has received intra-articular joint injection at the knees regarding severe degenerative arthritis. She has also has sickle cell trait and has neurogenic bladder and previous history of right lower extremity wound that has been healed for now. The patient is seen again today 12/30/2017 in follow-up on the regular medical floor. She is awake and alert in no acute distress. She denies any shortness of breath at rest. She complains of diffuse pain in her joints including her rib cage on deep inhalation. She is maintaining good O2 saturations in the high 90s on room air. She's been afebrile. Hemodynamically stable. D-dimer was 0.59. Doppler of the lower extremities negative. Troponins negative. Objective - Vital Signs Vital signs: Vital Signs Temp 97.6 F 12/30/17 07:24 Pulse 90 12/30/17 07:24 Resp 18 12/30/17 07:24 BP 126/63 12/30/17 07:24 Pulse Ox 97 12/30/17 07:24 Intake & Output 12/29/17 12/30/17 12/30/17 18:59 06:59 18:59 Intake Total 736 960 960 Output Total 2 Balance 734 960 960 Intake: Intake, IV Titration 500 600 960 Amount Heparin Sod,Pork in 0.45% 500 NaCl 25,000 unit In 0.45 % NaCl 1 500ml.bag @ 11.6 UNITS/KG/HR 45.77 mls/hr IV .[id number] [facility] Rx#: [id number] Sodium Chloride 0.9% 1, 600 960 000 ml @ 120 mls/hr IV . [id number] [facility] Rx#:[id number] Oral 236 360 Output: Stool 2 Other: Voiding Method Bedside Commode Bedside Commode # Voids 2 1 - Exam Morbid obesity with a BMI of 61.1, resting comfortably in bed, no acute distress and maintaining O2 saturations in the high 90s on room air. Head exam was generally normal. There was no scleral icterus or corneal arcus. Mucous membranes were moist. Neck was supple and without jugular venous distension, thyromegaly, or carotid bruits. Carotids were easily palpable bilaterally. There was no adenopathy. The patient has a Mallampati class IV Lungs diminished breath sound bilaterally. No wheezes overall currently crackles at this point in time and the breath sounds are equal and symmetrical Cardiac exam revealed the PMI to be normally situated and sized. The rhythm was regular and no extrasystoles were noted during several minutes of auscultation. The first and second heart sounds were normal and physiologic splitting of the second heart sound was noted. There were no murmurs, rubs, clicks, or gallops. Abdomen is obese and the patient's organs cannot be accurately palpated. There is no direct tenderness hemoptysis or guarding. extremities are large. There is no edema no wounds or any ulceration. Pulses are diminished at the present. No cyanosis or clubbing. Neurologically the patient is awake and alert and there is no focal neurological deficits. - Labs CBC & Chem 7: 12/30/17 06:53 12/30/17 06:53 Labs: Abnormal Lab Results - Last 24 Hours (Table) 12/29/17 12/30/17 12/30/17 Range/Units 18:50 06:53 06:53 Hgb 9.8 L (11.4-16.0) gm/dL Hct 31.5 L (34.0-46.0) % RDW 16.4 H (11.5-15.5) % APTT 59.0 H (22.0-30.0) sec Potassium 5.3 H (3.5-5.1) mmol/L Chloride 109 H (98-107) mmol/L BUN 22 H (7-17) mg/dL Glucose 104 H (74-99) mg/dL Assessment and Plan Assessment: Impression: 1 acute withdrawal from narcotics and angiolytic medication as the patient is a maintained on a combination of [place] and Valium on outpatient basis. The patient has been expressing diffuse body aches and as part of her workup a CT angios the chest was done. The pretest probability for pulmonary embolism was low as the patient did not have any pulmonary manifestations to suggest pulmonary embolism and the patient symptoms were rather chronic and most attribute it to her narcotic and benzodiazepine withdrawal. In any rate, the CT of the chest is completely unreliable due to the patient is morbidly obese body habitus and the poor contrast timing. Doppler of the lower extremities negative. D-dimer negative. 2 morbid obesity 3 kidney failure, chronic kidney injury failure versus acute kidney abnormality/ injury 4 severe degenerative arthritis 5 difficulty mobility due to chronic pain and arthritis and the patient has had a fall history 5 questionable history of myocardial infarction the past 6 chronic migraines 7 irritable bowel syndrome 8 diverticulosis 9 nephrolithiasis 10 sickle cell trait Plan: The patient was seen and evaluated by Dr. Abraham. No clear evidence of pulmonary embolism. Her d-dimer was negative. Dopplers lower extremities negative. Continue O2 saturations in the high 90s on room air. Hemodynamically stable. Her complaints are mostly that of generalized pain. We 'll see her on as-needed basis. I, the cosigning physician, performed a history & physical examination of the patient. Lungs sounds are clear. Maintaining good O2 saturations in the 90s on room air. I discussed the assessment and plan of care with my nurse practitioner, Shelia Clancy. I attest to the above note as dictated by her.
--- NOTE | 2017-12-30 20:35 | PN ---
PROGRESS NOTE DATE OF SERVICE: 12/30/2017. PRESENTING COMPLAINT: Weak and tired. INTERVAL HISTORY: The patient presented with nonspecific symptoms. Dr. Abraham spoke to me. He felt that PE was extremely unlikely. I did agree with him, given that the ultrasound was also unlikely for PE. Per Dr. Ortiz, the patient is to remain on p.o. [place]. No change in pain medication. Also seen by Orthopedics. No further intervention for her knees. Social and employment case manager are looking into discharge planning. The patient otherwise tolerating a diet, rather comfortable. The nurse did confirm the patient had a full breakfast. REVIEW OF SYSTEMS: Done for constitutional, cardiovascular, GI, pulmonary; relevant findings as above. CURRENT MEDICATIONS: Reviewed. EXAMINATION: Temperature 98.2, pulse 85, respirations 18, blood pressure 105/55, pulse ox 95% on room air. GENERAL APPEARANCE: Lying in bed, comfortable. EYES: Pupils equal. Conjunctivae normal. NECK: JVD unable to assess. Mass not palpable. RESPIRATORY: Effort normal. LUNGS: Distant breath sounds. CARDIOVASCULAR: Heart sounds muffled. Minimal edema. ABDOMEN: Distended, soft. Liver and spleen not palpable. PSYCHIATRY: Alert and oriented x3. Mood and affect normal. Patient lying in bed, very comfortable. INVESTIGATIONS: White count 8.2, hemoglobin 9.8. Potassium 5.3, BUN 32, creatinine 1.02. ASSESSMENT: 1. Pulmonary embolism extremely unlikely as discussed with Dr. Abraham. IV heparin was discontinued yesterday. 2. Bilateral knee severe osteoarthritis, recent intra-articular injection, no further intervention by Dr. Jensen. 3. Chronic pain syndrome. 4. Hypothyroidism. 5. Morbid obesity, BMI greater than 60. 6. Peripheral neuropathy, idiopathic. 7. Depression, not otherwise specified. 8. Chronic gait dysfunction. PLAN: I told the nurse to get the patient up in a chair. Will have the patient see a dietitian, put the patient on weight loss diet of 2200 calories with a strict calorie chart. MMODL / IJN: [id number] /
[2017-12-30] MEDS: ALPRAZolam 0.25 MG TAB PO PRN (22:04)
[2017-12-30] MEDS: PRAZOSIN 1 MG CAP PO SCH (22:04)
[2017-12-31] MEDS: HEPARIN SODIUM,PORCINE 5,000 UNIT/ML 1 ML VIAL SQ SCH ×4 (00:12→23:13)
[2017-12-31] MEDS: LEVOTHYROXINE 25 MCG TAB PO SCH (06:51)
[2017-12-31] MEDS: HYDROcodone/APAP 10-325MG 1 EACH TAB PO PRN ×2 (06:53→16:32)
[2017-12-31 07:35] LABS: Anisocytosis Slight; Basophils % (A) 0 %; Eosinophils # (A) 0.2 k/uL (0-0.7); Eosinophils % (A) 4 %; HCT 32.5 % (34.0-46.0); HGB 10.3 gm/dL (11.4-16.0); Lymphocytes # (A) 2.6 k/uL (1.0-4.8); Lymphocytes % (A) 37 %; MCH 25.8 pg (25.0-35.0); MCHC 31.7 g/dL (31.0-37.0); MCV 81.5 fL (80.0-100.0); Mean Platelet Volume 6.3; Monocytes # (A) 0.4 k/uL (0-1.0); Monocytes % (A) 6 %; Neutrophils # (A) 3.6 k/uL (1.3-7.7); Neutrophils % (A) 52 %; Platelet Count 331 k/uL (150-450); RBC 3.98 m/uL (3.80-5.40); RDW 16.6 % (11.5-15.5)
[2017-12-31 07:54] LABS: Calcium 9.2 mg/dL (8.4-10.2); Potassium 5.5 mmol/L (3.5-5.1)
[2017-12-31] MEDS: METOPROLOL TARTRATE 50 MG TAB PO SCH ×2 (08:51→21:07)
[2017-12-31] MEDS: CYCLOBENZAPRINE 10 MG TAB PO SCH ×3 (08:51→21:07)
[2017-12-31] MEDS: ALLOPURINOL 100 MG TAB PO SCH (08:51)
[2017-12-31] MEDS: FAMOTIDINE 20 MG TAB PO SCH ×2 (08:52→21:08)
[2017-12-31] MEDS: GABAPENTIN 300 MG CAP PO SCH ×3 (08:52→21:07)
[2017-12-31] MEDS: ETODOLAC 400 MG TAB PO SCH ×2 (08:52→21:08)
[2017-12-31] MEDS: ESCITALOPRAM 10 MG TAB PO SCH (08:52)
[2017-12-31] MEDS: POTASSIUM CHLORIDE ER 20 MEQ TAB.ER PO SCH ×3 (08:52→11:45)
[2017-12-31] MEDS ORDERED: SODIUM POLYSTYRENE SULFONATE 15 GM/60 ML BOTTLE PO STA (10:53)
[2017-12-31] MEDS: FERROUS SULFATE 325 MG TAB PO SCH (11:56)
[2017-12-31] MEDS: FOLIC ACID 1 MG TAB PO SCH (11:56)
[2017-12-31] MEDS: ALPRAZolam 0.25 MG TAB PO PRN ×2 (14:05→21:10)
[2017-12-31] MEDS: PRAZOSIN 1 MG CAP PO SCH (21:08)
[2018-01-01] MEDS: LEVOTHYROXINE 25 MCG TAB PO SCH (06:13)
[2018-01-01] MEDS: HYDROcodone/APAP 10-325MG 1 EACH TAB PO PRN ×2 (06:15→22:38)
[2018-01-01 08:42] LABS: Calcium 8.7 mg/dL (8.4-10.2)
[2018-01-01 08:51] LABS: Potassium 5.2 mmol/L (3.5-5.1)
[2018-01-01 09:03] LABS: Anisocytosis Slight; Basophils % (A) 1 %; Eosinophils # (A) 0.3 k/uL (0-0.7); Eosinophils % (A) 3 %; HCT 31.9 % (34.0-46.0); HGB 10.4 gm/dL (11.4-16.0); Lymphocytes # (A) 2.4 k/uL (1.0-4.8); Lymphocytes % (A) 30 %; MCH 25.9 pg (25.0-35.0); MCHC 32.5 g/dL (31.0-37.0); MCV 79.5 fL (80.0-100.0); Mean Platelet Volume 8.4; Monocytes # (A) 0.4 k/uL (0-1.0); Monocytes % (A) 5 %; Neutrophils # (A) 4.8 k/uL (1.3-7.7); Neutrophils % (A) 61 %; Platelet Count 259 k/uL (150-450); RBC 4.02 m/uL (3.80-5.40); RDW 16.5 % (11.5-15.5); WBC 7.9 k/uL (3.8-10.6)
[2018-01-01] MEDS: HEPARIN SODIUM,PORCINE 5,000 UNIT/ML 1 ML VIAL SQ SCH (10:13)
[2018-01-01] MEDS: ALLOPURINOL 100 MG TAB PO SCH (10:13)
[2018-01-01] MEDS: GABAPENTIN 300 MG CAP PO SCH ×3 (10:14→22:30)
[2018-01-01] MEDS: ESCITALOPRAM 10 MG TAB PO SCH (10:14)
[2018-01-01] MEDS: METOPROLOL TARTRATE 50 MG TAB PO SCH ×2 (10:14→22:29)
[2018-01-01] MEDS: CYCLOBENZAPRINE 10 MG TAB PO SCH ×3 (10:14→22:30)
[2018-01-01] MEDS: ETODOLAC 400 MG TAB PO SCH ×2 (10:14→22:29)
[2018-01-01] MEDS: FAMOTIDINE 20 MG TAB PO SCH ×2 (10:15→23:05)
--- NOTE | 2018-01-01 11:44 | P.DS ---
Providers Date of admission: 12/28/17 21:27 Attending physician: Fco Owen Consults: 12/29/17 14:08 Consult Physician Routine Consulting Provider: Yassine Ortiz Consult Reason/Comments: pain management Do you want consulting provider notified?: Yes 12/29/17 15:51 Consult Physician Routine Consulting Provider: Margarito Abraham Consult Reason/Comments: poss PE Do you want consulting provider notified?: Yes 12/29/17 15:53 Consult Physician Routine Consulting Provider: Barak Jensen Consult Reason/Comments: b/l knee pain Do you want consulting provider notified?: Yes Primary care physician: Joseph Jonesqvi Hospital Course: 45-year-old morbidly obese female was admitted secondary to suspicion of pulmonary embolism possibility of which is extremely low, patient was not started on anticoagulation. Patient was complaining of generalized body aches which was considered secondary to her chronic pain syndrome. Patient is clinically doing well. But she is she is unable to ambulate. Patient was hoping to go to subacute rehabilitation although patient had an of days and we have for this year because of which we're unable to place her in rehabilitation. Please refer to home health care case manager's dictation for further details. Patient will be discharged today in stable medical condition to home. Extensive dietary counseling was provided to the patient. PHYSICAL EXAMINATION: GENERAL: The patient is alert and oriented x3, not in any acute distress. Morbidly obese HEENT: Pupils are round and equally reacting to light. EOMI. No scleral icterus. No conjunctival pallor. Normocephalic, atraumatic. No pharyngeal erythema. No thyromegaly. CARDIOVASCULAR: S1 and S2 present. No murmurs, rubs, or gallops. PULMONARY: Chest is clear to auscultation, no wheezing or crackles. ABDOMEN: Soft, nontender, nondistended, normoactive bowel sounds. No palpable organomegaly. MUSCULOSKELETAL: No joint swelling or deformity. EXTREMITIES: No cyanosis, clubbing, or pedal edema. NEUROLOGICAL: Gross neurological examination did not reveal any focal deficits. SKIN: No rashes. For rest of the other chronic medical problems hospitalization course please refer to Dr. Owen dictation a progress note from yesterday Patient Condition at Discharge: Stable Plan - Discharge Summary Discharge Rx Participant: Yes New Discharge Prescriptions: Discontinued Potassium Chloride ER [K-Dur 20] 20 meq PO BID No Action Ferrous Sulfate [Iron (65 MG Elemental)] 325 mg PO DAILY Levothyroxine Sodium [Synthroid] 25 mcg PO DAILY Spironolactone 50 mg PO BID Prazosin [Minipress] 1 mg PO HS Escitalopram [Lexapro] 10 mg PO DAILY Allopurinol [Zyloprim] 200 mg PO DAILY Diclofenac Sodium [Voltaren] 75 mg PO BID Cyclobenzaprine [Flexeril] 10 mg PO TID Metoprolol Tartrate [Lopressor] 50 mg PO BID Folic Acid 1 mg PO DAILY Gabapentin [Neurontin] 600 mg PO TID #90 cap HYDROcodone/APAP 10-325MG [[place] 10-325] 1 tab PO Q6H PRN #20 tab PRN Reason: Moderate Pain Diazepam [Valium] 5 mg PO TID Acetaminophen Tab [Tylenol] 650 mg PO Q6HR PRN PRN Reason: Pain Discharge Medication List Ferrous Sulfate [Iron (65 MG Elemental)] 325 mg PO DAILY 08/28/14 [History] Levothyroxine Sodium [Synthroid] 25 mcg PO DAILY 05/09/16 [History] Spironolactone 50 mg PO BID 08/10/16 [History] Allopurinol [Zyloprim] 200 mg PO DAILY 04/24/17 [History] Escitalopram [Lexapro] 10 mg PO DAILY 04/24/17 [History] Prazosin [Minipress] 1 mg PO HS 04/24/17 [History] Cyclobenzaprine [Flexeril] 10 mg PO TID 08/02/17 [History] Diclofenac Sodium [Voltaren] 75 mg PO BID 08/02/17 [History] Folic Acid 1 mg PO DAILY 12/01/17 [History] Metoprolol Tartrate [Lopressor] 50 mg PO BID 12/01/17 [History] Gabapentin [Neurontin] 600 mg PO TID #90 cap 12/06/17 [Rx] HYDROcodone/APAP 10-325MG [[place] 10-325] 1 tab PO Q6H PRN #20 tab 12/06/17 [Rx] Diazepam [Valium] 5 mg PO TID 12/22/17 [History] Acetaminophen Tab [Tylenol] 650 mg PO Q6HR PRN 12/28/17 [History] Follow up Appointment(s)/Referral(s): Joseph Gallagher MD [Primary Care Provider] - 3 Days () [facility] Visiting Nurse, [NON-STAFF] - 1 Week Discharge Disposition: HOME SELF-CARE
[2018-01-01 11:49] VITALS: BMI 61.0
[2018-01-01] MEDS: FERROUS SULFATE 325 MG TAB PO SCH (13:30)
[2018-01-01] MEDS: FOLIC ACID 1 MG TAB PO SCH (13:30)
--- NOTE | 2018-01-01 14:07 | PN ---
PROGRESS NOTE DATE OF SERVICE: 12/31/17. PRESENTING COMPLAINT: Tired. INTERVAL HISTORY: This patient is seen by me yesterday. Admitted with running out of her pain medication. Also got chronic pain in the knee. The patient is very comfortable. Tolerating a diet. As noted before, the patient about 2 to 3 weeks ago was ambulating and was discharged from rehab after she was found to be appropriate to go home. I was informed today CPS is involved. REVIEW OF SYSTEMS: Done for constitutional, cardiovascular, GI, pulmonary, musculoskeletal; relevant findings as above. CURRENT MEDICATIONS: Reviewed. PHYSICAL EXAMINATION: Temperature 98.8, pulse 80, respiration 18, blood pressure 136/72, pulse 97% on room air. GENERAL APPEARANCE: Lying in bed comfortable. EYES: Pupils equal. Conjunctivae normal. HEENT: External appearance of nose and ears normal. Oral cavity normal. NECK: JVD unable to assess. Mass not palpable. RESPIRATORY: Effort normal. Lungs, distant breath sounds. CARDIOVASCULAR: Heart sounds muffled, minimal edema. ABDOMEN: Soft, nontender. Liver and spleen not palpable. PSYCHIATRY: Alert and oriented x3. Mood and affect normal. INVESTIGATIONS: White count 7, hemoglobin 10.3 potassium 5.5, BUN 20, creatinine 0.97. ASSESSMENT: 1. Pulmonary embolism, ruled out. 2. Bilateral knee osteoarthritis with recent intra-ocular injection, no further intervention as per Orthopedics. 3. Chronic pain syndrome. No change in medications per Dr. Ortiz. 4. Hypothyroidism. 5. Morbid obesity, BMI greater than 60. Dietitian was consulted. The patient is put on a 2200 calorie diet. 6. Peripheral neuropathy idiopathic. 7. Depression, not otherwise specified. 8. Chronic gait dysfunction. PLAN: At this point Social Work consult. nurse case manager both involved and does work on the disposition. I did speak at length with the patient that her pain medications. She is already on [place] and no further pain medications indicated at this point. She is seen by Dr. Ortiz with whom she should follow up. DISCHARGE PLANNING: gas utility worker and high school social science teacher is already involved. Otherwise, she is medically stable. She has to work on weight loss with calorie restriction. This was discussed in detail yet again. MMODL / IJN: [id number] /
[2018-01-01] MEDS: PRAZOSIN 1 MG CAP PO SCH (22:30)
[2018-01-02] MEDS: HYDROcodone/APAP 10-325MG 1 EACH TAB PO PRN ×2 (06:15→18:33)
[2018-01-02] MEDS: LEVOTHYROXINE 25 MCG TAB PO SCH (06:15)
[2018-01-02] MEDS: ENOXAPARIN 40 MG/0.4 ML SYRINGE SQ SCH (08:45)
[2018-01-02] MEDS: ALLOPURINOL 100 MG TAB PO SCH (08:45)
[2018-01-02] MEDS: CYCLOBENZAPRINE 10 MG TAB PO SCH ×3 (08:45→21:01)
[2018-01-02] MEDS: ETODOLAC 400 MG TAB PO SCH ×2 (08:46→21:01)
[2018-01-02] MEDS: ESCITALOPRAM 10 MG TAB PO SCH (08:46)
[2018-01-02] MEDS: GABAPENTIN 300 MG CAP PO SCH ×3 (08:48→21:01)
[2018-01-02] MEDS: FAMOTIDINE 20 MG TAB PO SCH ×2 (08:48→21:01)
[2018-01-02] MEDS: METOPROLOL TARTRATE 50 MG TAB PO SCH ×2 (08:49→21:01)
[2018-01-02 08:56] LABS: Anisocytosis Slight; Basophils % (A) 1 %; Eosinophils # (A) 0.3 k/uL (0-0.7); Eosinophils % (A) 3 %; HCT 33.1 % (34.0-46.0); HGB 10.3 gm/dL (11.4-16.0); Hypochromasia Slight; Lymphocytes # (A) 2.6 k/uL (1.0-4.8); Lymphocytes % (A) 32 %; MCH 25.6 pg (25.0-35.0); MCHC 31.2 g/dL (31.0-37.0); MCV 82.1 fL (80.0-100.0); Mean Platelet Volume 6.6; Monocytes # (A) 0.3 k/uL (0-1.0); Monocytes % (A) 4 %; Neutrophils # (A) 4.9 k/uL (1.3-7.7); Neutrophils % (A) 60 %; Platelet Count 382 k/uL (150-450); RBC 4.04 m/uL (3.80-5.40); RDW 16.7 % (11.5-15.5); WBC 8.2 k/uL (3.8-10.6)
--- NOTE | 2018-01-02 08:58 | CDI ---
Last Revision, May 2017 Documentation Clarification Form Date: 01/02/2018 8:38:00 AM From: Kasie CabreraMAHAD, CCDS Admit Date: 12/28/2017 9:27:00 PM Patient Name: Shireen Cotton Visit Number: [id number] Discharge Date: ATTENTION: The Clinical Documentation Specialists (CDI) and [facility] Coding Staff appreciate your assistance in clarifying documentation. Please respond to the clarification below the line at the bottom and electronically sign. The CDI & [facility] Coding staff will review the response and follow-up if needed. Please note: Queries are made part of the Legal Health Record. If you have any questions, please contact the author of this message via ITS. Dr. Carola Carmen: 47 yo female, morbidly obese & bedbound, admitted with chest pain radiating to her back, bilateral lower quadrant abdominal pain, pain to bilateral knees. Patient reportedly ran out of her anxiety & pain medications. Per the pulmonary consult: patient has been on chronic painkillers (Jber) & anxiety medication (Valium), Xanax prn. Diagnosed with acute withdrawal from narcotics & angiolytic medication. Presenting symptoms: Generalized body aches, anxious. Patient history/risk factors: Bedridden, Depression, Morbid Obesity, BMI >60. Lab findings: D Dimer 0.74^, BUN 27^, Cr 1.46^. Radiology findings: CT chest: Suspect RLL PE but technical limitations moderately limits interpretation. Vital Signs: HR 119^ Treatment: Xanax, IV Narcan, po Tylenol, po Jber. No anticoagulants. Consults: Rehab Software Test Technician, Pulmonary, Orthopedics In your professional opinion, can you please clarify which diagnosis, after study, accounted for the patients presenting symptoms and was the reason chiefly responsible for the admission? Suspected PE, ruled in or ruled out Generalized body aches Narcotic withdrawal with specified drug(s) Osteoarthritis primary, bilateral knees Other Unable to determine Please continue to document in your progress notes and discharge summary in order to capture severity of illness and risk of mortality. Include clinical findings that support your diagnosis. already dictated MTDD
[2018-01-02 09:02] LABS: Anion Gap 8 mmol/L; Blood Urea Nitrogen 21 mg/dL (7-17); Carbon Dioxide 21 mmol/L (22-30); Chloride 109 mmol/L (98-107); Glucose 145 mg/dL (74-99); Potassium 4.7 mmol/L (3.5-5.1); Sodium 138 mmol/L (137-145)
--- NOTE | 2018-01-02 10:38 | P.DS ---
Providers Date of admission: 12/28/17 21:27 Attending physician: Fco Owen Consults: 12/29/17 14:08 Consult Physician Routine Consulting Provider: Yassine Ortiz Consult Reason/Comments: pain management Do you want consulting provider notified?: Yes 12/29/17 15:51 Consult Physician Routine Consulting Provider: Margarito Abraham Consult Reason/Comments: poss PE Do you want consulting provider notified?: Yes 12/29/17 15:53 Consult Physician Routine Consulting Provider: Barak Jensen Consult Reason/Comments: b/l knee pain Do you want consulting provider notified?: Yes Primary care physician: Joseph Gallagher Hospital Course: Patient was not discharged as as today is case management is working on her disposition to subacute rehabilitation. Patient probably will be discharged to subacute rehab today. There is no significant change in her clinical condition or physical exam. Please refer to my dictation of discharge summary from yesterday for further details. PHYSICAL EXAMINATION: GENERAL: The patient is alert and oriented x3, not in any acute distress. Morbidly obese HEENT: Pupils are round and equally reacting to light. EOMI. No scleral icterus. No conjunctival pallor. Normocephalic, atraumatic. No pharyngeal erythema. No thyromegaly. CARDIOVASCULAR: S1 and S2 present. No murmurs, rubs, or gallops. PULMONARY: Chest is clear to auscultation, no wheezing or crackles. ABDOMEN: Soft, nontender, nondistended, normoactive bowel sounds. No palpable organomegaly. MUSCULOSKELETAL: No joint swelling or deformity. EXTREMITIES: No cyanosis, clubbing, or pedal edema. NEUROLOGICAL: Gross neurological examination did not reveal any focal deficits. SKIN: No rashes. Patient Condition at Discharge: Stable Plan - Discharge Summary Discharge Rx Participant: Yes New Discharge Prescriptions: Continue Ferrous Sulfate [Iron (65 MG Elemental)] 325 mg PO DAILY Levothyroxine Sodium [Synthroid] 25 mcg PO DAILY Spironolactone 50 mg PO BID Prazosin [Minipress] 1 mg PO HS Escitalopram [Lexapro] 10 mg PO DAILY Allopurinol [Zyloprim] 200 mg PO DAILY Diclofenac Sodium [Voltaren] 75 mg PO BID Cyclobenzaprine [Flexeril] 10 mg PO TID Metoprolol Tartrate [Lopressor] 50 mg PO BID Folic Acid 1 mg PO DAILY Gabapentin [Neurontin] 600 mg PO TID #90 cap Acetaminophen Tab [Tylenol] 650 mg PO Q6HR PRN PRN Reason: Pain Diazepam [Valium] 5 mg PO TID #30 tab HYDROcodone/APAP 10-325MG [[place] 10-325] 1 tab PO Q6H PRN #18 tab PRN Reason: Moderate Pain Discontinued Potassium Chloride ER [K-Dur 20] 20 meq PO BID Discharge Medication List Ferrous Sulfate [Iron (65 MG Elemental)] 325 mg PO DAILY 08/28/14 [History] Levothyroxine Sodium [Synthroid] 25 mcg PO DAILY 05/09/16 [History] Spironolactone 50 mg PO BID 08/10/16 [History] Allopurinol [Zyloprim] 200 mg PO DAILY 04/24/17 [History] Escitalopram [Lexapro] 10 mg PO DAILY 04/24/17 [History] Prazosin [Minipress] 1 mg PO HS 04/24/17 [History] Cyclobenzaprine [Flexeril] 10 mg PO TID 08/02/17 [History] Diclofenac Sodium [Voltaren] 75 mg PO BID 08/02/17 [History] Folic Acid 1 mg PO DAILY 12/01/17 [History] Metoprolol Tartrate [Lopressor] 50 mg PO BID 12/01/17 [History] Gabapentin [Neurontin] 600 mg PO TID #90 cap 12/06/17 [Rx] Acetaminophen Tab [Tylenol] 650 mg PO Q6HR PRN 12/28/17 [History] Diazepam [Valium] 5 mg PO TID #30 tab 01/02/18 [Rx] HYDROcodone/APAP 10-325MG [[place] 10-325] 1 tab PO Q6H PRN #18 tab 01/02/18 [Rx] Follow up Appointment(s)/Referral(s): Joseph Gallagher MD [Primary Care Provider] - 3 Days (office will call and set up appt) Yassine Ortiz MD [STAFF PHYSICIAN] - 3 Days [facility] Visiting Nurse, [NON-STAFF] - 1 Week Patient Instructions/Handouts: Hydrocodone/Acetaminophen (By mouth), Diazepam ( By mouth), Obesity (GEN) Discharge Disposition: TRANSFER TO SNF/ECF
[2018-01-02] MEDS: FERROUS SULFATE 325 MG TAB PO SCH (11:47)
[2018-01-02] MEDS: FOLIC ACID 1 MG TAB PO SCH (11:47)
[2018-01-02] MEDS: PRAZOSIN 1 MG CAP PO SCH (21:01)
[2018-01-03] MEDS ORDERED: HYDROcodone/APAP 10-325MG 1 EACH TAB ONE (03:35)
[2018-01-03] MEDS: LEVOTHYROXINE 25 MCG TAB PO SCH (06:24)
[2018-01-03 08:30] LABS: Anisocytosis Slight; Basophils % (A) 0 %; Eosinophils # (A) 0.3 k/uL (0-0.7); Eosinophils % (A) 3 %; HCT 30.6 % (34.0-46.0); HGB 9.6 gm/dL (11.4-16.0); Hypochromasia Slight; Lymphocytes # (A) 2.2 k/uL (1.0-4.8); Lymphocytes % (A) 30 %; MCH 25.8 pg (25.0-35.0); MCHC 31.4 g/dL (31.0-37.0); MCV 82.1 fL (80.0-100.0); Mean Platelet Volume 6.5; Monocytes # (A) 0.3 k/uL (0-1.0); Monocytes % (A) 5 %; Neutrophils # (A) 4.4 k/uL (1.3-7.7); Neutrophils % (A) 61 %; Platelet Count 357 k/uL (150-450); RBC 3.73 m/uL (3.80-5.40); RDW 16.9 % (11.5-15.5); WBC 7.3 k/uL (3.8-10.6)
[2018-01-03] MEDS: METOPROLOL TARTRATE 50 MG TAB PO SCH ×3 (09:27→22:03)
[2018-01-03] MEDS: CYCLOBENZAPRINE 10 MG TAB PO SCH ×3 (09:29→22:03)
[2018-01-03] MEDS: ETODOLAC 400 MG TAB PO SCH ×2 (09:29→22:02)
[2018-01-03] MEDS: ALLOPURINOL 100 MG TAB PO SCH (09:29)
[2018-01-03] MEDS: FAMOTIDINE 20 MG TAB PO SCH ×2 (09:29→19:35)
[2018-01-03] MEDS: ESCITALOPRAM 10 MG TAB PO SCH (09:29)
[2018-01-03] MEDS: ENOXAPARIN 40 MG/0.4 ML SYRINGE SQ SCH (09:29)
[2018-01-03] MEDS: GABAPENTIN 300 MG CAP PO SCH ×2 (09:29→19:34)
[2018-01-03] MEDS: HYDROcodone/APAP 10-325MG 1 EACH TAB PO PRN ×3 (09:29→22:50)
--- NOTE | 2018-01-03 11:28 | P.PN ---
Subjective Progress Note Date: 01/02/18 45-year-old morbidly obese female was admitted secondary to suspicion of pulmonary embolism possibility of which is extremely low, patient was not started on anticoagulation. Patient was complaining of generalized body aches which was considered secondary to her chronic pain syndrome. Patient is clinically doing well. But she is she is unable to ambulate. Patient was hoping to go to subacute rehabilitation although patient had an of days and we have for this year because of which we're unable to place her in rehabilitation. Please refer to telephonic nurse case manager's dictation for further details. Patient will be discharged today in stable medical condition to home. Extensive dietary counseling was provided to the patient. 01/02/2018 Patient is being evaluated for subacute subacute rehab patient is recommending a musculoskeletal chest pain and generalized body aches. Had excessive discussion regarding weight loss management. Objective - Vital Signs Vital signs: Vital Signs Temp 97.6 F 01/03/18 08:01 Pulse 68 01/03/18 08:01 Resp 16 01/03/18 08:01 BP 107/66 01/03/18 08:01 Pulse Ox 100 01/03/18 08:01 Intake & Output 01/02/18 01/03/18 01/03/18 18:59 06:59 18:59 Intake Total 360 540 400 Output Total 2 2 Balance 360 538 398 Intake: Oral 360 540 400 Output: Stool 2 2 Other: Voiding Method Bedside Commode Bedside Commode # Voids 1 2 # Bowel Movements 1 - Exam PHYSICAL EXAMINATION: GENERAL: The patient is alert and oriented x3, not in any acute distress. Morbidly obese HEENT: Pupils are round and equally reacting to light. EOMI. No scleral icterus. No conjunctival pallor. Normocephalic, atraumatic. No pharyngeal erythema. No thyromegaly. CARDIOVASCULAR: S1 and S2 present. No murmurs, rubs, or gallops. PULMONARY: Chest is clear to auscultation, no wheezing or crackles. ABDOMEN: Soft, nontender, nondistended, normoactive bowel sounds. No palpable organomegaly. MUSCULOSKELETAL: No joint swelling or deformity. EXTREMITIES: No cyanosis, clubbing, or pedal edema. NEUROLOGICAL: Gross neurological examination did not reveal any focal deficits. SKIN: No rashes. - Labs CBC & Chem 7: 01/03/18 07:34 01/02/18 08:14 Labs: Abnormal Lab Results - Last 24 Hours (Table) 01/03/18 Range/Units 07:34 RBC 3.73 L (3.80-5.40) m/uL Hgb 9.6 L (11.4-16.0) gm/dL Hct 30.6 L (34.0-46.0) % RDW 16.9 H (11.5-15.5) % Assessment and Plan Plan: -Rule out pulmonary embolism: Patient given a chest pain pleuritic. -Morbid obesity -Acute renal failure improved -Hyperkalemia: Due to renal failure which improved as well. -Hypothyroidism -Hypertension -Chronic migraines and chronic pain syndrome -Sickle cell trait as per the previous physician's dictation is -Severe degenerative osteoarthritis We'll continue her present medications, awaiting disposition to subacute rehabilitation.
--- NOTE | 2018-01-03 11:29 | P.DS ---
Providers Date of admission: 12/28/17 21:27 Attending physician: Fco Owen Consults: 12/29/17 14:08 Consult Physician Routine Consulting Provider: Yassine Ortiz Consult Reason/Comments: pain management Do you want consulting provider notified?: Yes 12/29/17 15:51 Consult Physician Routine Consulting Provider: Margarito Abraham Consult Reason/Comments: poss PE Do you want consulting provider notified?: Yes 12/29/17 15:53 Consult Physician Routine Consulting Provider: Barak Jensen Consult Reason/Comments: b/l knee pain Do you want consulting provider notified?: Yes Primary care physician: [facility] Course: Patient is awaiting disposition to subacute rehab please refer to my dictation of discharge summary from 2 days ago. PHYSICAL EXAMINATION: GENERAL: The patient is alert and oriented x3, not in any acute distress. Morbidly obese HEENT: Pupils are round and equally reacting to light. EOMI. No scleral icterus. No conjunctival pallor. Normocephalic, atraumatic. No pharyngeal erythema. No thyromegaly. CARDIOVASCULAR: S1 and S2 present. No murmurs, rubs, or gallops. PULMONARY: Chest is clear to auscultation, no wheezing or crackles. ABDOMEN: Soft, nontender, nondistended, normoactive bowel sounds. No palpable organomegaly. MUSCULOSKELETAL: No joint swelling or deformity. EXTREMITIES: No cyanosis, clubbing, or pedal edema. NEUROLOGICAL: Gross neurological examination did not reveal any focal deficits. SKIN: No rashes. Patient Condition at Discharge: Stable Plan - Discharge Summary Discharge Rx Participant: Yes New Discharge Prescriptions: Continue Ferrous Sulfate [Iron (65 MG Elemental)] 325 mg PO DAILY Levothyroxine Sodium [Synthroid] 25 mcg PO DAILY Spironolactone 50 mg PO BID Prazosin [Minipress] 1 mg PO HS Escitalopram [Lexapro] 10 mg PO DAILY Allopurinol [Zyloprim] 200 mg PO DAILY Diclofenac Sodium [Voltaren] 75 mg PO BID Cyclobenzaprine [Flexeril] 10 mg PO TID Metoprolol Tartrate [Lopressor] 50 mg PO BID Folic Acid 1 mg PO DAILY Gabapentin [Neurontin] 600 mg PO TID #90 cap Acetaminophen Tab [Tylenol] 650 mg PO Q6HR PRN PRN Reason: Pain Diazepam [Valium] 5 mg PO TID #30 tab HYDROcodone/APAP 10-325MG [[place] 10-325] 1 tab PO Q6H PRN #18 tab PRN Reason: Moderate Pain Discontinued Potassium Chloride ER [K-Dur 20] 20 meq PO BID Discharge Medication List Ferrous Sulfate [Iron (65 MG Elemental)] 325 mg PO DAILY 08/28/14 [History] Levothyroxine Sodium [Synthroid] 25 mcg PO DAILY 05/09/16 [History] Spironolactone 50 mg PO BID 08/10/16 [History] Allopurinol [Zyloprim] 200 mg PO DAILY 04/24/17 [History] Escitalopram [Lexapro] 10 mg PO DAILY 04/24/17 [History] Prazosin [Minipress] 1 mg PO HS 04/24/17 [History] Cyclobenzaprine [Flexeril] 10 mg PO TID 08/02/17 [History] Diclofenac Sodium [Voltaren] 75 mg PO BID 08/02/17 [History] Folic Acid 1 mg PO DAILY 12/01/17 [History] Metoprolol Tartrate [Lopressor] 50 mg PO BID 12/01/17 [History] Gabapentin [Neurontin] 600 mg PO TID #90 cap 12/06/17 [Rx] Acetaminophen Tab [Tylenol] 650 mg PO Q6HR PRN 12/28/17 [History] Diazepam [Valium] 5 mg PO TID #30 tab 01/02/18 [Rx] HYDROcodone/APAP 10-325MG [[place] 10-325] 1 tab PO Q6H PRN #18 tab 01/02/18 [Rx] Follow up Appointment(s)/Referral(s): Joseph Gallagher MD [Primary Care Provider] - 3 Days (office will call and set up appt) Yassine Ortiz MD [STAFF PHYSICIAN] - 3 Days [facility] Visiting Nurse, [NON-STAFF] - 1 Week Patient Instructions/Handouts: Hydrocodone/Acetaminophen (By mouth), Diazepam ( By mouth), Obesity (GEN) Discharge Disposition: TRANSFER TO SNF/ECF
[2018-01-03] MEDS: FOLIC ACID 1 MG TAB PO SCH (11:56)
[2018-01-03] MEDS: FERROUS SULFATE 325 MG TAB PO SCH (11:56)
[2018-01-03] MEDS: PRAZOSIN 1 MG CAP PO SCH (22:03)
[2018-01-03 22:51] VITALS: RESP 16
[2018-01-04] MEDS: LEVOTHYROXINE 25 MCG TAB PO SCH (06:21)
[2018-01-04] MEDS: GABAPENTIN 300 MG CAP PO SCH ×2 (06:21→13:09)
[2018-01-04 07:14] VITALS: BP 113/56; PULSE 73; TEMP 98
[2018-01-04] MEDS: ALLOPURINOL 100 MG TAB PO SCH (08:10)
[2018-01-04] MEDS: CYCLOBENZAPRINE 10 MG TAB PO SCH (08:11)
[2018-01-04] MEDS: ETODOLAC 400 MG TAB PO SCH (08:11)
[2018-01-04] MEDS: METOPROLOL TARTRATE 50 MG TAB PO SCH (08:11)
[2018-01-04] MEDS: ESCITALOPRAM 10 MG TAB PO SCH (08:11)
[2018-01-04] MEDS: ENOXAPARIN 40 MG/0.4 ML SYRINGE SQ SCH (08:12)
[2018-01-04] MEDS: HYDROcodone/APAP 10-325MG 1 EACH TAB PO PRN (08:12)
[2018-01-04] MEDS: FAMOTIDINE 20 MG TAB PO SCH (09:06)
--- NOTE | 2018-01-04 10:10 | P.DS ---
Providers Date of admission: 12/28/17 21:27 Attending physician: Fco Owen Consults: 12/29/17 14:08 Consult Physician Routine Consulting Provider: Yassine Ortiz Consult Reason/Comments: pain management Do you want consulting provider notified?: Yes 12/29/17 15:51 Consult Physician Routine Consulting Provider: Margarito Abraham Consult Reason/Comments: poss PE Do you want consulting provider notified?: Yes 12/29/17 15:53 Consult Physician Routine Consulting Provider: Barak Jensen Consult Reason/Comments: b/l knee pain Do you want consulting provider notified?: Yes Primary care physician: [facility] Course: 42-year-old female admitted for chest pain rule out pulmonary embolism patient is still requesting more pain medications for her arthritis. I declined to give her more opiate pain medications for arthritis patient then wanted to see a different doctor. I do not believe patient request more opiates at this time I clearly explained to her the treatment of arthritis including weight loss physical therapy and anti-inflammatory medications. Patient is still awaiting to go to subacute rehabilitation. Awaiting insurance approval for that. Patient Condition at Discharge: Stable Plan - Discharge Summary Discharge Rx Participant: Yes New Discharge Prescriptions: Continue Ferrous Sulfate [Iron (65 MG Elemental)] 325 mg PO DAILY Levothyroxine Sodium [Synthroid] 25 mcg PO DAILY Spironolactone 50 mg PO BID Prazosin [Minipress] 1 mg PO HS Escitalopram [Lexapro] 10 mg PO DAILY Allopurinol [Zyloprim] 200 mg PO DAILY Diclofenac Sodium [Voltaren] 75 mg PO BID Cyclobenzaprine [Flexeril] 10 mg PO TID Metoprolol Tartrate [Lopressor] 50 mg PO BID Folic Acid 1 mg PO DAILY Gabapentin [Neurontin] 600 mg PO TID #90 cap Acetaminophen Tab [Tylenol] 650 mg PO Q6HR PRN PRN Reason: Pain Diazepam [Valium] 5 mg PO TID #30 tab HYDROcodone/APAP 10-325MG [[place] 10-325] 1 tab PO Q6H PRN #18 tab PRN Reason: Moderate Pain Discontinued Potassium Chloride ER [K-Dur 20] 20 meq PO BID Discharge Medication List Ferrous Sulfate [Iron (65 MG Elemental)] 325 mg PO DAILY 08/28/14 [History] Levothyroxine Sodium [Synthroid] 25 mcg PO DAILY 11/21/16 [History] Spironolactone 50 mg PO BID 08/10/16 [History] Allopurinol [Zyloprim] 200 mg PO DAILY 04/24/17 [History] Escitalopram [Lexapro] 10 mg PO DAILY 04/24/17 [History] Prazosin [Minipress] 1 mg PO HS 04/24/17 [History] Cyclobenzaprine [Flexeril] 10 mg PO TID 08/02/17 [History] Diclofenac Sodium [Voltaren] 75 mg PO BID 08/02/17 [History] Folic Acid 1 mg PO DAILY 12/01/17 [History] Metoprolol Tartrate [Lopressor] 50 mg PO BID 12/01/17 [History] Gabapentin [Neurontin] 600 mg PO TID #90 cap 12/06/17 [Rx] Acetaminophen Tab [Tylenol] 650 mg PO Q6HR PRN 12/28/17 [History] Diazepam [Valium] 5 mg PO TID #30 tab 01/02/18 [Rx] HYDROcodone/APAP 10-325MG [[place] 10-325] 1 tab PO Q6H PRN #18 tab 01/02/18 [Rx] Follow up Appointment(s)/Referral(s): Joseph Gallagher MD [Primary Care Provider] - 3 Days (office will call and set up appt) Yassine Ortiz MD [STAFF PHYSICIAN] - 3 Days [facility] Visiting Nurse, [NON-STAFF] - 1 Week Patient Instructions/Handouts: Hydrocodone/Acetaminophen (By mouth), Diazepam ( By mouth), Obesity (GEN) Discharge Disposition: TRANSFER TO SNF/ECF
[2018-01-04] MEDS: FERROUS SULFATE 325 MG TAB PO SCH (11:30)
[2018-01-04] MEDS: FOLIC ACID 1 MG TAB PO SCH (11:30)
== END 2018-01-04 14:35 | DRG 92 ==
LOC: EC 16:28 → 6SEL 21:27 → 5MS5E 12-30 00:08
PROVIDERS: ADMIT Hospitalist; ATTEND Hospitalist
DX: G89.4 Chronic pain syndrome (principal); K50.90 Crohn's disease, unspecified, without complications; N17.9 Acute kidney failure, unspecified; F11.23 Opioid dependence with withdrawal; F19.939 Other psychoactive substance use, unspecified with withdrawal, unspecified; Z68.44 Body mass index [BMI] 60.0-69.9, adult; D57.3 Sickle-cell trait; E03.9 Hypothyroidism, unspecified; E66.01 Morbid (severe) obesity due to excess calories; F32.9 Major depressive disorder, single episode, unspecified; F41.9 Anxiety disorder, unspecified; G43.909 Migraine, unspecified, not intractable, without status migrainosus; G62.9 Polyneuropathy, unspecified; I25.2 Old myocardial infarction; I11.9 Hypertensive heart disease without heart failure; K21.9 Gastro-esophageal reflux disease without esophagitis; K57.90 Diverticulosis of intestine, part unspecified, without perforation or abscess without bleeding; M06.9 Rheumatoid arthritis, unspecified; M13.0 Polyarthritis, unspecified; N20.0 Calculus of kidney; N31.9 Neuromuscular dysfunction of bladder, unspecified; M10.9 Gout, unspecified; M54.40 Lumbago with sciatica, unspecified side; R26.9 Unspecified abnormalities of gait and mobility; Z74.01 Bed confinement status; Z79.899 Other long term (current) drug therapy; Z86.711 Personal history of pulmonary embolism; Z91.5 Personal history of self-harm; Z98.51 Tubal ligation status; Z88.5 Allergy status to narcotic agent; Z88.8 Allergy status to other drugs, medicaments and biological substances
CPT/HCPCS: 36415; 71046; 71275; 80048; 80053; 81001; 82150; 83690; 84484; 85025; 85379; 85610; 85730; 93005; 93970; 96361; 96365; 96375; 96376; 99285

== ENCOUNTER 2018-03-01 13:52 | Inpatient (IN) | payer MEDICARE, OTHER ==
[2018-03-01] MEDS ORDERED: ONDANSETRON 4 MG/2 ML VIAL IVP STA (14:10)
[2018-03-01] MEDS ORDERED: SODIUM CHLORIDE 0.9% 1,000 ML IV STA (14:10)
[2018-03-01] MEDS ORDERED: MORPHINE SULFATE 4 MG/ML SYRINGE IV STA (14:11)
--- NOTE | 2018-03-01 14:16 | ED ---
General Adult HPI - General Chief complaint: Abdominal Pain Stated complaint: abdominal pain Time Seen by Provider: 03/01/18 13:59 Source: patient, EMS, RN notes reviewed Mode of arrival: EMS Limitations: no limitations - History of Present Illness Initial comments: Patient's a 47-year-old female presenting to the emergency room today by EMS, with a chief complaint of chest pain that wraps around to the back and then has now radiated to the middle of the lower abdomen. Patient states that pain started yesterday. Patient states that she's had symptoms similar to this in the past and was seen here in the hospital recently. Patient describes the pain as sharp. Patient does admit that it seems to come and go. She denies any other complaints or symptoms currently. Patient denies any recent fever, chills, shortness of breath, nausea or vomiting, numbness or tingling, headaches or visual changes, or any other complaints - Related Data Home Medications Medication Instructions Recorded Confirmed Ferrous Sulfate [Iron (65 MG 325 mg PO DAILY 08/28/14 03/01/18 Elemental)] Levothyroxine Sodium [Synthroid] 25 mcg PO DAILY 05/09/16 03/01/18 Spironolactone 50 mg PO BID 08/10/16 03/01/18 Allopurinol [Zyloprim] 200 mg PO DAILY 04/24/17 03/01/18 Escitalopram [Lexapro] 10 mg PO DAILY 04/24/17 03/01/18 Prazosin [Minipress] 1 mg PO HS 04/24/17 03/01/18 Cyclobenzaprine [Flexeril] 10 mg PO TID 08/02/17 03/01/18 Diclofenac Sodium [Voltaren] 75 mg PO BID 08/02/17 03/01/18 Folic Acid 1 mg PO DAILY 12/01/17 03/01/18 Metoprolol Tartrate [Lopressor] 50 mg PO BID 12/01/17 03/01/18 Previous Rx's Medication Instructions Recorded Gabapentin [Neurontin] 600 mg PO TID #90 cap 12/06/17 Diazepam [Valium] 5 mg PO TID #30 tab 01/02/18 HYDROcodone/APAP 10-325MG [[place] 1 tab PO Q6H PRN #18 tab 01/02/18 10-325] Allergies Allergy/AdvReac Type Severity Reaction Status Date / Time oxycodone HCl [From Percocet] Allergy Rash/Hives Verified 03/01/18 14:27 procaine HCl [From Novocain] Allergy facial Verified 03/01/18 14:27 swelling Review of Systems ROS Statement: Those systems with pertinent positive or pertinent negative responses have been documented in the HPI. ROS Other: All systems not noted in ROS Statement are negative. Past Medical History Past Medical History: GERD/Reflux, GI Bleed, Hypertension, Myocardial Infarction (TX), Osteoarthritis (OA), Pulmonary Embolus (PE), Renal Disease, Rheumatoid Arthritis (RA), Syncope Additional Past Medical History / Comment(s): Obesity, weakness-bedridden, numbness/tingling bilateral feet, chronic phil leg wound/cellulitis currently healed, previous rt leg ulcers now healed, lower leg edema, chronic low back pain with sciatica, tail bone fracture, migraines, pt states she had toxemia with 1st and had a TX, bilateral tinnitis occasionally, bronchitis, sinus problems, gout bilateral feet, carpal tunnel syndrome bilateral wrists, hypothyoid, HTN but only with anxiety, colitis, IBS, chron's, diverticular dx, occasional low blood sugar, nephrolithiasis-pt passed on her own, chronic anemia , lower GI bleed, UTIs."sickle cell" Last Myocardial Infarction Date:: 1989 History of Any Multi-Drug Resistant Organisms: None Reported Past Surgical History: Section, Tubal Ligation Additional Past Surgical History / Comment(s): colonoscopy, 4 c-sections Past Anesthesia/Blood Transfusion Reactions: No Reported Reaction Additional Past Anesthesia/Blood Transfusion Reaction / Comment(s): Pt has received blood in the past and had itching, has had another transfusion since with no reaction. Past Psychological History: Anxiety Smoking Status: Never smoker Past Alcohol Use History: None Reported Past Drug Use History: None Reported - Past Family History Father History Unknown: Yes Additional Family Medical History / Comment(s): Pt was adopted and does not know parents/family medical hx. General Exam - General Exam Comments Initial Comments: General: The patient is awake and alert, in no distress, and does not appear acutely ill. Eye: Pupils are equal, round and reactive to light. Extra-ocular movements are intact. No nystagmus. There is normal conjunctiva bilaterally. No signs of icterus. Ears, nose, mouth and throat: There are moist mucous membranes and no oral lesions. Neck: The neck is supple, there is no tenderness or JVD. Cardiovascular: There is a regular rate and rhythm. No murmur, rub or gallop is appreciated. Respiratory: Lungs are clear to auscultation, respirations are non-labored, breath sounds are equal. No wheezes, stridor, rales, or rhonchi. Gastrointestinal: Abdomen soft on palpation. Mild tenderness midline lower abdomen. No rebound, guarding Musculoskeletal: Normal ROM, no tenderness. Sensation intact. Strength 5/5. Pulses equal bilaterally 2+. Neurological: A&O x 3. CN II-XII intact, There are no obvious motor or sensory deficits. Coordination appears grossly intact. Speech is normal. Skin: Skin is warm and dry and no rashes or lesions are noted. Psychiatric: Cooperative, appropriate mood & affect, normal judgment. Limitations: no limitations Course Vital Signs 03/01/18 03/01/18 13:55 15:15 Temperature 97.9 F Pulse Rate 103 H 100 Respiratory 20 18 Rate Blood Pressure 120/64 156/81 O2 Sat by Pulse 95 100 Oximetry Medical Decision Making - Medical Decision Making Patient's CT the abdomen and pelvis does show hydropic gallbladder. No surrounding inflammation on the CT. 2. Hepatomegaly and hepatic steatosis. 3. Mild left and a colonic diverticulosis no evidence of diverticulitis. 4. If he scattered borderline to mildly enlarged lymph nodes particularly in the right sided mesentery and right pelvis. Patient's labs been reviewed. Does show mildly elevated CK-MB at 800. Troponin negative. Patient's EKG showing no acute changes. Patient's cerebellar white count 12.8. Patient's kidney function mildly elevated creatinine currently 1.9. Patient will be admitted to hospital for IV hydration for acute kidney injury. - Lab Data Result diagrams: 03/01/18 14:37 03/01/18 14:37 Lab Results 03/01/18 03/01/18 03/01/18 Range/Units 14:37 14:37 14:37 WBC 12.8 H (3.8-10.6) k/uL RBC 3.84 (3.80-5.40) m/uL Hgb 10.1 L (11.4-16.0) gm/dL Hct 32.6 L (34.0-46.0) % MCV 85.0 (80.0-100.0) fL MCH 26.4 (25.0-35.0) pg MCHC 31.0 (31.0-37.0) g/dL RDW 16.2 H (11.5-15.5) % Plt Count 332 (150-450) k/uL Neutrophils % 69 % Lymphocytes % 22 % Monocytes % 6 % Eosinophils % 2 % Basophils % 0 % Neutrophils # 8.9 H (1.3-7.7) k/uL Lymphocytes # 2.8 (1.0-4.8) k/uL Monocytes # 0.7 (0-1.0) k/uL Eosinophils # 0.2 (0-0.7) k/uL Basophils # 0.0 (0-0.2) k/uL Hypochromasia Slight Anisocytosis Slight PT 9.9 (9.0-12.0) sec INR 1.0 (<1.2) APTT 24.2 (22.0-30.0) sec Sodium (137-145) mmol/L Potassium (3.5-5.1) mmol/L Chloride (98-107) mmol/L Carbon Dioxide (22-30) mmol/L Anion Gap mmol/L BUN (7-17) mg/dL Creatinine (0.52-1.04) mg/dL Est GFR (CKD-EPI)AfAm (>60 ml/min/1.73 sqM) Est GFR (CKD-EPI)NonAf (>60 ml/min/1.73 sqM) Glucose (74-99) mg/dL Calcium (8.4-10.2) mg/dL Total Bilirubin (0.2-1.3) mg/dL AST (14-36) U/L ALT (9-52) U/L Alkaline Phosphatase (38-126) U/L Total Creatine Kinase 872 H (30-135) U/L CK-MB (CK-2) 4.9 H (0.0-2.4) ng/mL CK-MB (CK-2) Rel Index 0.6 Troponin I <0.012 (0.000-0.034) ng/mL Total Protein (6.3-8.2) g/dL Albumin (3.5-5.0) g/dL Urine Color Urine Appearance (Clear) Urine pH (5.0-8.0) Ur Specific [place] (1.001-1.035) Urine Protein (Negative) Urine Glucose (UA) (Negative) Urine Ketones (Negative) Urine Blood (Negative) Urine Nitrite (Negative) Urine Bilirubin (Negative) Urine Urobilinogen (<2.0) mg/dL Ur Leukocyte Esterase (Negative) Urine WBC (0-5) /hpf Ur Squamous Epith Cells (0-4) /hpf Amorphous Sediment (None) /hpf Hyaline Casts (0-2) /lpf Granular Casts (0) /lpf Urine Mucus (None) /hpf 03/01/18 03/01/18 Range/Units 14:37 15:08 WBC (3.8-10.6) k/uL RBC (3.80-5.40) m/uL Hgb (11.4-16.0) gm/dL Hct (34.0-46.0) % MCV (80.0-100.0) fL MCH (25.0-35.0) pg MCHC (31.0-37.0) g/dL RDW (11.5-15.5) % Plt Count (150-450) k/uL Neutrophils % % Lymphocytes % % Monocytes % % Eosinophils % % Basophils % % Neutrophils # (1.3-7.7) k/uL Lymphocytes # (1.0-4.8) k/uL Monocytes # (0-1.0) k/uL Eosinophils # (0-0.7) k/uL Basophils # (0-0.2) k/uL Hypochromasia Anisocytosis PT (9.0-12.0) sec INR (<1.2) APTT (22.0-30.0) sec Sodium 139 (137-145) mmol/L Potassium 4.2 (3.5-5.1) mmol/L Chloride 104 (98-107) mmol/L Carbon Dioxide 25 (22-30) mmol/L Anion Gap 10 mmol/L BUN 17 (7-17) mg/dL Creatinine 1.95 H (0.52-1.04) mg/dL Est GFR (CKD-EPI)AfAm 35 (>60 ml/min/1.73 sqM) Est GFR (CKD-EPI)NonAf 30 (>60 ml/min/1.73 sqM) Glucose 104 H (74-99) mg/dL Calcium 9.1 (8.4-10.2) mg/dL Total Bilirubin 0.4 (0.2-1.3) mg/dL AST 22 (14-36) U/L ALT 22 (9-52) U/L Alkaline Phosphatase 78 (38-126) U/L Total Creatine Kinase (30-135) U/L CK-MB (CK-2) (0.0-2.4) ng/mL CK-MB (CK-2) Rel Index Troponin I (0.000-0.034) ng/mL Total Protein 7.4 (6.3-8.2) g/dL Albumin 4.0 (3.5-5.0) g/dL Urine Color Yellow Urine Appearance Cloudy H (Clear) Urine pH 5.0 (5.0-8.0) Ur Specific [place] 1.023 (1.001-1.035) Urine Protein 1+ H (Negative) Urine Glucose (UA) Negative (Negative) Urine Ketones Negative (Negative) Urine Blood Negative (Negative) Urine Nitrite Negative (Negative) Urine Bilirubin 1+ H (Negative) Urine Urobilinogen 2.0 (<2.0) mg/dL Ur Leukocyte Esterase Negative (Negative) Urine WBC 2 (0-5) /hpf Ur Squamous Epith Cells 1 (0-4) /hpf Amorphous Sediment Rare H (None) /hpf Hyaline Casts 73 H (0-2) /lpf Granular Casts 3 (0) /lpf Urine Mucus Rare H (None) /hpf Disposition Clinical Impression: BEKAH (acute kidney injury), Abdominal pain Disposition: ADMITTED IP TO THIS HOSP Condition: Stable Is patient prescribed a controlled substance at d/c from ED?: No Referrals: Miki Stewart MD [Primary Care Provider] - 1-2 days Time of Disposition: 16:43
[2018-03-01 15:01] LABS: Calcium 9.1 mg/dL (8.4-10.2); Partial Thromboplastin Time 24.2 sec (22.0-30.0); Potassium 4.2 mmol/L (3.5-5.1); Prothrombin Time 9.9 sec (9.0-12.0); Total Bilirubin 0.4 mg/dL (0.2-1.3); Total Protein 7.4 g/dL (6.3-8.2)
--- NOTE | 2018-03-01 15:03 | XR ---
EXAMINATION TYPE: XR chest 2V DATE OF EXAM: 03/01/2018 COMPARISON: Prior chest x-ray 12/28/2017 HISTORY: Abdominal pain, gastroesophageal reflux disease and gastrointestinal bleeding TECHNIQUE: Frontal and lateral views of the chest are obtained. FINDINGS: Exam is limited technically by patient body habitus. Patient is rotated. There are overlyin g cardiac leads. There is no focal air space opacity, pleural effusion, or pneumothorax seen. The [facility] silhouette size is stable accounting for differences in technique. The osseous structures are intact. IMPRESSION: No acute cardiopulmonary process.
[2018-03-01 15:08] LABS: Anisocytosis Slight; Basophils % (A) 0 %; Eosinophils # (A) 0.2 k/uL (0-0.7); Eosinophils % (A) 2 %; HCT 32.6 % (34.0-46.0); HGB 10.1 gm/dL (11.4-16.0); Hypochromasia Slight; Lymphocytes # (A) 2.8 k/uL (1.0-4.8); Lymphocytes % (A) 22 %; MCH 26.4 pg (25.0-35.0); Mean Platelet Volume 6.4; Monocytes # (A) 0.7 k/uL (0-1.0); Monocytes % (A) 6 %; Neutrophils # (A) 8.9 k/uL (1.3-7.7); Neutrophils % (A) 69 %; Platelet Count 332 k/uL (150-450); RBC 3.84 m/uL (3.80-5.40); RDW 16.2 % (11.5-15.5); WBC 12.8 k/uL (3.8-10.6)
[2018-03-01 15:11] LABS: Creatine Kinase 872 U/L (30-135)
[2018-03-01 15:24] LABS: Amorphous Sediment,Urine Rare /hpf; Appearance,Urine Cloudy (Clear); Bilirubin,Urine 1+ (Negative); Blood,Urine Negative (Negative); Color,Urine Yellow; Glucose,Urine (UA) Negative (Negative); Granular Casts,Urine 3 /lpf (0); Hyaline Casts,Urine 73 /lpf (0-2); Ketones,Urine Negative (Negative); Leukocyte Esterase,Urine Negative (Negative); Mucus,Urine Rare /hpf; Nitrite,Urine Negative (Negative); Protein,Urine 1+ (Negative); Specific Gravity,Urine 1.023 (1.001-1.035); Squamous Epithelial Cell,Urine 1 /hpf (0-4)
[2018-03-01 15:25] LABS: Creatine Kinase MB 4.9 ng/mL (0.0-2.4); Troponin I <0.012 ng/mL (0.000-0.034)
--- NOTE | 2018-03-01 16:15 | CT ---
EXAMINATION TYPE: CT abdomen pelvis wo con DATE OF EXAM: 03/01/2018 COMPARISON: 10/14/2016 HISTORY: 47-year-old female abdominal pain CT DLP: 3034.4 mGycm. Automated exposure control for dose reduction was used. TECHNIQUE: Contiguous axial scanning of the abdomen and pelvis without IV contrast. Coronal and sagit yvonne reconstructions performed. FINDINGS: Large patient body habitus causes excessive nose artifacts. Heart upper limits of normal in size without pericardial effusion. Lung bases clear without pleural e ffusion. Liver enlarged measuring 20.0 cm with low-attenuation compatible with fatty infiltration. The gallbladder is hydropic measuring 5.3 cm wide. No surrounding inflammatory change. Kidneys show no evidence for nephrolithiasis or hydronephrosis. Adrenal glands, spleen, and pancreas show no gross abnormality by noncontrast CT. No dilated small bowel, free fluid, or free air. Normal appendix. Mild stool burden. Mild left hemicolonic diverticulosis without pericolonic inflamma tory change identified allowing for the extensive noise artifact. There are additional artifacts with in the lower abdomen and pelvis secondary to patient's side contacting the edge of the gantry. Small fatty umbilical hernia. A few mildly enlarged right lower quadrant mesenteric lymph nodes measure up to 8 mm and are probably reactive/post inflammatory. Otherwise, no mesenteric or retroperitoneal lymphadenopathy. Bladder nondistended. Uterus and left ovary are visualized. Right ovary not clearly seen. Allowing fo r exam limitations, there are pelvic phleboliths without abnormal fluid collection. A couple borderline to mildly enlarged right iliac chain lymph nodes measure up to 1.0 cm along both common and external iliac chains, refer to axial image 65 and 75. Right inguinal lymph nodes are bord rubén in size measuring up to 1.5 cm short axis. Bones: Advanced degenerative changes at both hips and SI joints and additional degenerative changes t hroughout the visualized spine not optimally characterize given patient artifact. IMPRESSION: 1. Gallbladder is hydropic. No surrounding inflammation by CT. If right upper quadrant pain or becky rn for early acute cholecystitis, consider follow-up HIDA scan. Ultrasound may be limited due to gavin ent size. 2. Hepatomegaly (20.0 cm) and hepatic steatosis. 3. Mild left hemicolonic diverticulosis. No convincing findings of acute diverticulitis given promin ent artifacts. 4. A few scattered borderline to mildly enlarged lymph nodes particularly in the right-sided mesente ry and in the right pelvis likely reactive/post inflammatory.
[2018-03-01] MEDS ORDERED: SODIUM CHLORIDE 0.9% 1,000 ML IV ONE (16:43)
[2018-03-01] MEDS ORDERED: NALOXONE 0.4 MG/ML 1 ML VIAL IV PRN (16:43)
[2018-03-01] MEDS ORDERED: ONDANSETRON 4 MG/2 ML VIAL IVP PRN (16:43)
[2018-03-01] MEDS: LACTATED RINGERS 1,000 ML IV SCH (18:25)
[2018-03-01] MEDS: CYCLOBENZAPRINE 10 MG TAB PO SCH ×2 (18:25→20:58)
[2018-03-01] MEDS: DIAZEPAM 5 MG TAB PO SCH (20:58)
[2018-03-01] MEDS: PRAZOSIN 1 MG CAP PO SCH (20:58)
[2018-03-01] MEDS: METOPROLOL TARTRATE 50 MG TAB PO SCH (20:59)
[2018-03-01] MEDS: GABAPENTIN 300 MG CAP PO SCH (20:59)
--- NOTE | 2018-03-01 21:01 | NM ---
EXAMINATION TYPE: NM hepatobiliary w CCK DATE OF EXAM: 03/01/2018 COMPARISON: NONE HISTORY: TECHNIQUE: After the intravenous administration of 3.5 mCi Tc 99m Mebrofenin hepatobiliary scintigrap hy is performed. Immediate images post injection. FINDINGS: There is satisfactory initial accumulation of tracer by the liver. The gallbladder is visualized wit hin 23 minutes. The small bowel activity is noted within 20 minutes. At one hour CCK was administer ed, patient was injected with 4.1 mcg of Kinevac, and gallbladder ejection fraction is calculated at 26 %, . There is no focal liver defect. Normal gallbladder ejection fraction is more than 35%. IMPRESSION: Large gallbladder. There is hypokinetic gallbladder ejection fraction of 26% with the sti mulation. This is consistent with gallbladder dysfunction. No evidence of cystic duct or common bile duct obstruction. No focal liver defect.
[2018-03-01] MEDS: HYDROcodone/APAP 10-325MG 1 EACH TAB PO PRN (22:15)
[2018-03-02 07:38] LABS: Anisocytosis Slight; Basophils % (A) 0 %; Eosinophils # (A) 0.3 k/uL (0-0.7); Eosinophils % (A) 3 %; HGB 9.7 gm/dL (11.4-16.0); Hypochromasia Slight; Lymphocytes # (A) 2.4 k/uL (1.0-4.8); Lymphocytes % (A) 28 %; MCH 26.6 pg (25.0-35.0); MCHC 31.3 g/dL (31.0-37.0); Mean Platelet Volume 6.7; Monocytes # (A) 0.5 k/uL (0-1.0); Monocytes % (A) 6 %; Neutrophils # (A) 5.4 k/uL (1.3-7.7); Neutrophils % (A) 62 %; Platelet Count 324 k/uL (150-450); RBC 3.65 m/uL (3.80-5.40); RDW 16.3 % (11.5-15.5); WBC 8.6 k/uL (3.8-10.6)
[2018-03-02 08:07] LABS: Albumin 3.6 g/dL (3.5-5.0); Calcium 8.7 mg/dL (8.4-10.2); Potassium 4.5 mmol/L (3.5-5.1); Total Bilirubin 0.6 mg/dL (0.2-1.3); Total Protein 6.9 g/dL (6.3-8.2)
[2018-03-02] MEDS ORDERED: ALLOPURINOL 100 MG TAB PO SCH (09:00)
[2018-03-02] MEDS: FOLIC ACID 1 MG TAB PO SCH ×2 (10:24→10:43)
[2018-03-02] MEDS: ALLOPURINOL 100 MG TAB PO SCH ×2 (10:24→10:42)
[2018-03-02] MEDS: LEVOTHYROXINE 25 MCG TAB PO SCH ×2 (10:24→10:42)
[2018-03-02] MEDS: CYCLOBENZAPRINE 10 MG TAB PO SCH ×4 (10:24→21:03)
[2018-03-02] MEDS: GABAPENTIN 300 MG CAP PO SCH ×4 (10:24→21:03)
[2018-03-02] MEDS: ESCITALOPRAM 10 MG TAB PO SCH ×2 (10:24→10:42)
[2018-03-02] MEDS: LACTATED RINGERS 1,000 ML IV SCH ×2 (10:25→20:27)
[2018-03-02] MEDS: METOPROLOL TARTRATE 50 MG TAB PO SCH ×3 (10:25→20:51)
[2018-03-02] MEDS: DIAZEPAM 5 MG TAB PO SCH ×2 (10:28→10:42)
--- NOTE | 2018-03-02 11:26 | P.PN ---
Progress Note - Text Progress Note Date: 03/02/18 Was requested by the attending for a surgical eval. Went to do the surgical consultation patient twice on both events could not be aroused enough to answer questions to do an adequate consultation note The above impression and plan of care have been discussed and directed by signing physician. Jackie Mendez nurse practitioner acting as scribe for signing physician.
[2018-03-02] MEDS: HYDROcodone/APAP 10-325MG 1 EACH TAB PO PRN ×2 (12:02→18:38)
--- NOTE | 2018-03-02 17:30 | HP ---
HISTORY AND PHYSICAL DATE OF ADMISSION: March 01, 2018. DATE OF SERVICE: March 02, 2018. PRESENTING COMPLAINT: Abdominal pain. HISTORY OF PRESENTING COMPLAINT: This is a 47-year-old patient who follows with visiting physicians, Dr. Stewart. The patient was here in December of this year. At that time, she was discharged from the hospital to [facility] on December 06, 2017. At that time, she was seen by Dr. Jensen for bilateral knee pain. Intraarticular injection was carried out. Then patient was transferred to [facility]. The patient from [facility] went home. The patient's chronic stable medical conditions include GERD, hypertension, questionable history of AL, rheumatoid arthritis, morbid obesity, chronic pain. Last admission, she was admitted and she said the EMS and dropped her off at a bed and she remained in bed in 1 week. The patient comes in the last time and she said that she was getting pain medications previously from Dr. Pablito Vásquez and Dr. Ortiz. Dr. Ortiz did see her and said to continue on the same medicine, not to change the same. PE was ruled out. This occasion patient presents with what she describes as upper abdominal pain, question of the chest. No obvious radiation. She states that she pretty much stays in bed. Her daughter lives with her, but does not really care for her. Has no time and sometimes she does not eat. When I first came to the floor, nurse Crain told me that the patient had not woken up all morning, very difficult to arouse, very drowsy. The previous evening, I was called by the nurse that the patient wanted IV pain medications and I did tell them patient is already getting Tabor and the patient told the nurse that she wanted IV pain medications. She did not want to take Tabor. Otherwise, she will not get her IV pain medications and I said at this point that is not indicated. The patient was reported to be otherwise very rather comfortable. This morning when I walked in the room, the patient was not waking up. I had to have the nurse Breann get me a washcloth and actually washed her face before she got up and gave me the above history. REVIEW OF SYSTEMS: CONSTITUTIONAL: None. HEENT none. RESPIRATORY none. CARDIOVASCULAR: Questionable chest pain. GASTROINTESTINAL some heartburn. GENITOURINARY none. MUSCULOSKELETAL pain in multiple joints, hands, legs, all over she says. HEMATOLOGICAL: None. LYMPHATICS none. PSYCHIATRY none. NEUROLOGICAL: Sometimes gets tingling and numbness in the hands and feet. PAST MEDICAL HISTORY: GERD, GI bleed, hypertension, myocardial infarction, osteoarthritis, questionable PE, rheumatoid arthritis, morbid obesity, lower extremity wounds that have heeled, chronic low back pain, sciatica, carpal tunnel syndrome, hypothyroid, irritable bowel syndrome, diverticulosis, kidney stones, chronic anemia, possible sickle cell. PAST SURGICAL HISTORY: , tubal ligation, colonoscopy. SOCIAL HISTORY: Stays at home. Daughter is present there. No smoking. No alcohol. FAMILY HISTORY: Patient is adopted. HOME MEDICATIONS: 1. Minipress 1 mg q.h.s. 2. Aldactone 50 mg b.i.d. 3. Lopressor 50 mg b.i.d. 4. Synthroid 25 mcg a day. 5. Tabor 10 one tablet q.6 p.r.n. 6. Neurontin 600 mg p.o. t.i.d. 7. Folic acid 1 mg p.o. daily. 8. Iron 325 p.o. daily. 9. Lexapro 10 mg p.o. daily. 10.Voltaren 75 mg p.o. b.i.d. 11.Valium 5 mg p.o. t.i.d. 12.Flexeril 10 mg p.o. t.i.d. 13.Allopurinol 200 mg p.o. daily. ALLERGIES: TO OXYCODONE, PROCAINE. PHYSICAL EXAMINATION: VITAL SIGNS: Vital signs on presentation, temperature 97.9 pulse 103, respiration 20, blood pressure 120/54, pulse ox 95 percent on room air. GENERAL APPEARANCE: Morbidly obese. BMI 74.9, lying in bed, lethargic and drowsy, but had to be aroused after washcloths. HEENT: External appearance of nose and ears normal. Oral cavity a bit dry. NECK: Short, thick, JVD unable to assess. Mass not palpable. RESPIRATORY: Effort normal. LUNGS: Distant breath sounds. CARDIOVASCULAR: Heart sounds muffled. Minimal edema. ABDOMEN: Distended, soft. Liver and spleen not palpable. LYMPHATICS: No lymph nodes palpable in neck or axillae. PSYCHIATRY: Patient is lethargic but able answer questions. NEUROLOGICAL: Pupils equal. Cranial nerves grossly intact. Power and sensation grossly intact. INVESTIGATIONS: White count 12.8, repeat 8.6, white count 10.1, platelets 332, potassium 4.2, creatinine 1.95, repeat 2.077. The patient's creatinine was 1 on January 11 2018. ASSESSMENT: 1. Acute metabolic encephalopathy and the patient is already taking Tabor 10 and also taking Valium around the clock and Flexeril. Is also on Neurontin and Neurontin in renal failure setting can make the patient definitely more drowsy. 2. Acute renal failure probably from decreased oral intake and also the patient has been on diclofenac. 3. Morbid obesity BMI 74.9. 4. Bilateral knee osteoarthritis with recent intra-articular injection by Dr. Jensen. 5. Chronic pain syndrome, being followed by Dr. Ortiz. 6. Hypothyroidism. 7. Peripheral neuropathy idiopathic. 8. Depression not otherwise specified. 9. Chronic gait dysfunction. PLAN: Consultation to Nephrology is being done. The patient has also got some nonspecific chest pain she described. There is a questionable history of myocardial infarction in the past. Hence, we will get a cardiology opinion. We will do 2 more troponins. The patient's EKG was unremarkable. The patient did have a CT scan of the abdomen and pelvis did show a possible hydropic gallbladder for which Dr. Suarez was consulted. She did order a HIDA scan that did show a large gallbladder with EF of 26%. I will empirically put the patient on Zosyn right now. I am afraid any more pain medications will be very dangerous to the patient. The patient also being hydrated. Copy to Dr. Stewart from [facility]. MMODL / IJN: [id number] /
--- NOTE | 2018-03-02 17:33 | P.GSCN ---
History of Present Illness Consult date: 03/02/18 History of present illness: CHIEF COMPLAINT: Abdominal pain HISTORY OF PRESENT ILLNESS: The patient is a 47-year-old female who has been tolerating regular diet. She comes in with acute renal insufficiency of unclear cause. She comes in 300 pounds overweight. BMI 74.9. She had complained of diffuse abdominal pain which has become more progressive in the bilateral lower abdomen. CT of the abdomen and pelvis was obtained demonstrating questionable hydropic gallbladder. As a result general surgery has been consulted. She denies any previous history of gallbladder disorder otherwise. She is tolerating diet. No nausea or vomiting. Her last bowel movement was prior to admission 2 days ago. Her last colonoscopy was 3 years ago which she states was unremarkable. PAST MEDICAL HISTORY: See list. PAST SURGICAL HISTORY: See list. MEDICATIONS: See list. ALLERGIES: See list. SOCIAL HISTORY: No illicit drug use FAMILY HISTORY: Morbid obesity. REVIEW OF ORGAN SYSTEMS: CONSTITUTIONAL: No fevers or chills HEENT: No troubles with vision or hearing. No reports of dysphagia. ENDOCRINE: Has thyroid disorders. No diabetes. CARDIOVASCULAR: No heart attack. No chest pain. RESPIRATORY: No shortness of breath or pneumonia. GASTROINTESTINAL: No reports of recent blood in stools. NEURO: No reports of stroke or seizure disorders. Has chronic pain. PSYCH: No depression or suicidal ideation HEMATOLOGIC: No easy bruising or bleeding LYMPHATIC: The patient denies any lumps and bumps around the neck. GENITOURINARY: Denies any blood in urine or increased urinary frequency. MUSCULOSKELETAL: Has back pain, stiffness or joint arthritis. SKIN: No skin cancer or rash per PHYSICAL EXAM: VITAL SIGNS: Currently stable. GENERAL: Well-developed in no acute distress. HEENT: No sclera icterus. Extraocular movements grossly intact. Moist buccal mucosa. Head is atraumatic, normocephalic. Hears conversational speech. No nasal drainage. NECK: Supple without lymphadenopathy. CHEST: Non-labored respirations and equal bilateral excursions. CARDIOVASCULAR: Regular rate with regular rhythm. Palpable 2+ radial pulses. ABDOMEN: Soft. Nondistended. No peritonitis. Mild tenderness in bilateral lower abdomen. No right upper quadrant abdominal pain or epigastric pain on palpation. MUSCULOSKELETAL: No clubbing, cyanosis. NEUROLOGIC: No focal or lateralizing signs. Cranial nerves II through XII grossly intact. PSYCH: Appropriate affect. Alert and oriented to person, place and time. SKIN: Well perfused. Good skin turgor. LABS: Reviewed STUDIES: Reviewed ASSESSMENT: 1. Abnormal computed tomography scan 2. Abdominal pain PLAN: 1. I had ordered a nuclear scan of her gallbladder which demonstrates no evidence of acute cholecystitis. 2. She complains primarily of bilateral lower abdominal pain. She does have history of diverticulosis including on computed tomography scan. High-fiber diet over 25 g daily advised. 3. No surgical intervention needed at this time for her gallbladder. Further assessment may be done as an outpatient. 4. Diet as tolerated. 5. Management of acute kidney injury. 6. May benefit from cardiac risk assessment for future outpatient procedure. Thank you for this kind consultation. Past Medical History Past Medical History: GERD/Reflux, GI Bleed, Hypertension, Myocardial Infarction ([place]), Osteoarthritis (OA), Pulmonary Embolus (PE), Renal Disease, Rheumatoid Arthritis (RA), Syncope Additional Past Medical History / Comment(s): Obesity, numbness/tingling bilateral feet, chronic phil leg wound/cellulitis currently healed, previous rt leg ulcers now healed, lower leg edema, chronic low back pain with sciatica, tail bone fracture, migraines, pt states she had toxemia with 1st and had a [place], bilateral tinnitis occasionally, bronchitis, sinus problems, gout bilateral feet, carpal tunnel syndrome bilateral wrists, hypothyoid, HTN but only with anxiety, colitis, IBS, chron's, diverticular dx, occasional low blood sugar, nephrolithiasis-pt passed on her own, chronic anemia, lower GI bleed, UTIs."sickle cell" Last Myocardial Infarction Date:: 1989 History of Any Multi-Drug Resistant Organisms: None Reported Past Surgical History: Section, Tubal Ligation Additional Past Surgical History / Comment(s): colonoscopy, 4 c-sections Past Anesthesia/Blood Transfusion Reactions: No Reported Reaction Additional Past Anesthesia/Blood Transfusion Reaction / Comm: Pt has received blood in the past and had itching, has had another transfusion since with no reaction. Smoking Status: Never smoker - Past Family History Father History Unknown: Yes Additional Family Medical History / Comment(s): Pt was adopted and does not know parents/family medical hx. Medications and Allergies Home Medications Medication Instructions Recorded Confirmed Type Ferrous Sulfate [Iron (65 MG 325 mg PO DAILY 08/28/14 03/01/18 History Elemental)] Levothyroxine Sodium [Synthroid] 25 mcg PO DAILY 05/09/16 03/01/18 History Spironolactone 50 mg PO BID 08/10/16 03/01/18 History Allopurinol [Zyloprim] 200 mg PO DAILY 04/24/17 03/01/18 History Escitalopram [Lexapro] 10 mg PO DAILY 04/24/17 03/01/18 History Prazosin [Minipress] 1 mg PO HS 04/24/17 03/01/18 History Cyclobenzaprine [Flexeril] 10 mg PO TID 08/02/17 03/01/18 History Diclofenac Sodium [Voltaren] 75 mg PO BID 08/02/17 03/01/18 History Folic Acid 1 mg PO DAILY 12/01/17 03/01/18 History Metoprolol Tartrate [Lopressor] 50 mg PO BID 12/01/17 03/01/18 History Gabapentin [Neurontin] 600 mg PO TID #90 cap 12/06/17 03/01/18 Rx Diazepam [Valium] 5 mg PO TID #30 tab 01/02/18 03/01/18 Rx HYDROcodone/APAP 10-325MG [[place] 1 tab PO Q6H PRN #18 tab 01/02/18 03/01/18 Rx 10-325] Allergies Allergy/AdvReac Type Severity Reaction Status Date / Time oxycodone HCl [From Percocet] Allergy Rash/Hives Verified 03/01/18 14:27 procaine HCl [From Novocain] Allergy facial Verified 03/01/18 14:27 swelling Surgical - Exam Vital Signs Temp Pulse Resp BP Pulse Ox 97.9 F 103 H 20 120/64 95 03/01/18 13:55 03/01/18 13:55 03/01/18 13:55 03/01/18 13:55 03/01/18 13:55 Results - Labs 03/02/18 06:58 03/02/18 06:58 Abnormal Lab Results - Last 24 Hours (Table) 03/02/18 03/02/18 Range/Units 06:58 06:58 RBC 3.65 L (3.80-5.40) m/uL Hgb 9.7 L (11.4-16.0) gm/dL Hct 31.0 L (34.0-46.0) % RDW 16.3 H (11.5-15.5) % Creatinine 2.07 H (0.52-1.04) mg/dL Diabetes panel 03/02/18 Range/Units 06:58 Sodium 139 (137-145) mmol/L Potassium 4.5 (3.5-5.1) mmol/L Chloride 104 (98-107) mmol/L Carbon Dioxide 28 (22-30) mmol/L BUN 17 (7-17) mg/dL Creatinine 2.07 H (0.52-1.04) mg/dL Glucose 99 (74-99) mg/dL Calcium 8.7 (8.4-10.2) mg/dL AST 27 (14-36) U/L ALT 23 (9-52) U/L Alkaline Phosphatase 69 (38-126) U/L Total Protein 6.9 (6.3-8.2) g/dL Albumin 3.6 (3.5-5.0) g/dL Calcium panel 03/02/18 Range/Units 06:58 Calcium 8.7 (8.4-10.2) mg/dL Albumin 3.6 (3.5-5.0) g/dL Pituitary panel 03/02/18 Range/Units 06:58 Sodium 139 (137-145) mmol/L Potassium 4.5 (3.5-5.1) mmol/L Chloride 104 (98-107) mmol/L Carbon Dioxide 28 (22-30) mmol/L BUN 17 (7-17) mg/dL Creatinine 2.07 H (0.52-1.04) mg/dL Glucose 99 (74-99) mg/dL Calcium 8.7 (8.4-10.2) mg/dL Adrenal panel 03/02/18 Range/Units 06:58 Sodium 139 (137-145) mmol/L Potassium 4.5 (3.5-5.1) mmol/L Chloride 104 (98-107) mmol/L Carbon Dioxide 28 (22-30) mmol/L BUN 17 (7-17) mg/dL Creatinine 2.07 H (0.52-1.04) mg/dL Glucose 99 (74-99) mg/dL Calcium 8.7 (8.4-10.2) mg/dL Total Bilirubin 0.6 (0.2-1.3) mg/dL AST 27 (14-36) U/L ALT 23 (9-52) U/L Alkaline Phosphatase 69 (38-126) U/L Total Protein 6.9 (6.3-8.2) g/dL Albumin 3.6 (3.5-5.0) g/dL - Imaging CT scan - abdomen: report reviewed, image reviewed CT scan - pelvis: report reviewed (No evidence of bowel obstruction. No evidence of colitis.), image reviewed Additional studies: HIDA scan reviewed consistent with no evidence of acute cholecystitis Assessment and Plan (1) Generalized abdominal pain Current Visit: Yes Status: Acute Code(s): R10.84 - GENERALIZED ABDOMINAL PAIN SNOMED Code(s): 456910831 (2) BEKAH (acute kidney injury) Current Visit: Yes Status: Acute Code(s): N17.9 - ACUTE KIDNEY FAILURE, UNSPECIFIED SNOMED Code(s): 00466989 (3) Abdominal pain Current Visit: Yes Status: Acute Code(s): R10.9 - UNSPECIFIED ABDOMINAL PAIN SNOMED Code(s): 44415435 (4) BMI 70 and over, adult Current Visit: No Status: Acute Code(s): Z68.45 - BODY MASS INDEX (BMI) 70 OR GREATER, ADULT SNOMED Code(s): 800622417 (5) Morbidly obese Current Visit: No Status: Acute Code(s): E66.01 - MORBID (SEVERE) OBESITY DUE TO EXCESS CALORIES SNOMED Code(s): 845312388 (6) Morbid obesity with BMI of 70 and over, adult Current Visit: No Status: Chronic Code(s): E66.01 - MORBID (SEVERE) OBESITY DUE TO EXCESS CALORIES; Z68.45 - BODY MASS INDEX (BMI) 70 OR GREATER, ADULT SNOMED Code(s): 523428533
[2018-03-02] MEDS ORDERED: HYDROmorphone 1 MG/ML 1 ML SYRINGE IM PRN (20:48)
[2018-03-02] MEDS: PRAZOSIN 1 MG CAP PO SCH (20:51)
[2018-03-02] MEDS: SPIRONOLACTONE 25 MG TAB PO SCH (21:03)
[2018-03-02] MEDS: HYDROmorphone 1 MG/ML 1 ML SYRINGE IVP PRN (21:13)
[2018-03-03] MEDS: HYDROmorphone 1 MG/ML 1 ML SYRINGE IVP PRN ×5 (01:12→20:02)
[2018-03-03 03:32] LABS: Anisocytosis Slight; Basophils % (A) 0 %; Eosinophils # (A) 0.3 k/uL (0-0.7); Eosinophils % (A) 4 %; HCT 30.4 % (34.0-46.0); HGB 9.4 gm/dL (11.4-16.0); Hypochromasia Slight; Lymphocytes # (A) 3.1 k/uL (1.0-4.8); Lymphocytes % (A) 35 %; MCH 26.2 pg (25.0-35.0); MCHC 30.9 g/dL (31.0-37.0); MCV 84.9 fL (80.0-100.0); Mean Platelet Volume 6.4; Monocytes # (A) 0.4 k/uL (0-1.0); Monocytes % (A) 5 %; Neutrophils # (A) 4.9 k/uL (1.3-7.7); Neutrophils % (A) 55 %; Platelet Count 312 k/uL (150-450); RBC 3.59 m/uL (3.80-5.40); RDW 16.2 % (11.5-15.5); WBC 8.9 k/uL (3.8-10.6)
[2018-03-03 03:42] LABS: Albumin 3.5 g/dL (3.5-5.0); Calcium 9.4 mg/dL (8.4-10.2); Potassium 4.7 mmol/L (3.5-5.1); Total Bilirubin 0.3 mg/dL (0.2-1.3); Total Protein 6.6 g/dL (6.3-8.2)
[2018-03-03 03:57] LABS: T4, Free (Free Thyroxine) 0.92 ng/dL (0.78-2.19)
[2018-03-03] MEDS: LACTATED RINGERS 1,000 ML IV SCH ×2 (04:39→13:06)
[2018-03-03] MEDS: LEVOTHYROXINE 100 MCG TAB PO SCH (05:51)
[2018-03-03] MEDS: CYCLOBENZAPRINE 10 MG TAB PO SCH ×3 (08:28→22:18)
[2018-03-03] MEDS: METOPROLOL TARTRATE 50 MG TAB PO SCH ×2 (08:28→22:18)
[2018-03-03] MEDS: FERROUS SULFATE 325 MG TAB PO SCH (08:28)
[2018-03-03] MEDS: GABAPENTIN 300 MG CAP PO SCH ×3 (08:28→22:18)
[2018-03-03] MEDS: SPIRONOLACTONE 25 MG TAB PO SCH ×2 (08:28→22:19)
[2018-03-03] MEDS: FOLIC ACID 1 MG TAB PO SCH (08:28)
[2018-03-03] MEDS: ALLOPURINOL 100 MG TAB PO SCH (08:29)
[2018-03-03] MEDS: ESCITALOPRAM 10 MG TAB PO SCH (08:29)
--- NOTE | 2018-03-03 09:59 | P.PN ---
Subjective Progress Note Date: 03/03/18 Principal diagnosis: Abdominal pain, altered mental status, severe morbid obesity, chronic elevated d -dimer, 03/03/2018, patient seen eval examined during the rounds while covering for Dr. Fahad Murillo patient is morbidly obese 47-year-old female admitted into service of Dr. rider decided to switch the physician now Dr. Murillo with the primary care he has evaluated this patient last night Dr. Luna has been consulted as a second surgical opinion/data processing consultant, patient is currently pain- free sitting upright on the bed eating her breakfast denies any chest pain abdominal pain is better she has been on 0.5 mg of Dilaudid her labs reviewed medications reviewed as well patient is being worked up for cholecystitis and possible cholecystectomy Objective - Vital Signs Vital signs: Vital Signs Temp 99.1 F 03/03/18 07:00 Pulse 99 03/03/18 07:00 Resp 16 03/03/18 07:00 BP 135/72 03/03/18 07:00 Pulse Ox 94 L 03/03/18 07:00 Intake & Output 03/02/18 03/03/18 03/03/18 18:59 06:59 18:59 Other: Voiding Method Bedpan # Voids 1 3 - Exam GENERAL: Well-developed in no acute distress, severely morbid obesity. HEENT: No sclera icterus. Extraocular movements grossly intact. Moist buccal mucosa. Head is atraumatic, normocephalic. Hears conversational speech. No nasal drainage. NECK: Supple without lymphadenopathy. CHEST: Non-labored respirations and equal bilateral excursions. CARDIOVASCULAR: Regular rate with regular rhythm. Palpable 2+ radial pulses. ABDOMEN: Soft. Nondistended. Bowel sounds present mild lower abdominal tenderness is present MUSCULOSKELETAL: No clubbing, cyanosis. NEUROLOGIC: No focal or lateralizing signs. Cranial nerves II through XII grossly intact. PSYCH: Appropriate affect. Alert and oriented to person, place and time. SKIN: Well perfused. Good skin turgor. - Labs CBC & Chem 7: 03/03/18 03:04 03/03/18 03:04 Labs: Abnormal Lab Results - Last 24 Hours (Table) 03/03/18 03/03/18 03/03/18 Range/Units 03:04 03:04 03:04 RBC 3.59 L (3.80-5.40) m/uL Hgb 9.4 L (11.4-16.0) gm/dL Hct 30.4 L (34.0-46.0) % MCHC 30.9 L (31.0-37.0) g/dL RDW 16.2 H (11.5-15.5) % D-Dimer 0.85 H (<0.60) mg/L FEU BUN 18 H (7-17) mg/dL Glucose 126 H (74-99) mg/dL TSH 5.730 H (0.465-4.680) mIU/L Microbiology - Last 24 Hours (Table) 03/02/18 Unknown Gram Stain - Preliminary Sputum Assessment and Plan Assessment: Abdominal discomfort and pain likely chronic cholecystitis patient is being evaluated by surgical services Altered mental status of unclear etiology now patient is more awake and alert we 'll do arterial arterial blood gas to evaluate for obesity hypoventilation and chronic hypercapnia Chronically elevated d-dimer patient has been worked up before, see Dr. Wiley NOTE note will put patient on DVT and peptic ulcer disease prophylaxis Chronic intermittent chest pain, cardiovascular consultation has been obtained awaiting their recommendations Acute renal failure and fluid resuscitation renal functions have been normalized now we'll lower down the IV fluid Plan: Gentle rehydration Arterial blood gas Cardiovascular consultation DVT and peptic ulcer disease prophylaxis Pain management as per started by Dr. Fahad Murillo Second opinion for surgical evaluation Dr. Brandt already has been consulted Further recommendations pending plan of care as per clinical response of the patient Time with Patient: Greater than 30
[2018-03-03 12:36] LABS: ABG Base Excess 6.3 mmol/L; ABG HCO3 32 mmol/L (21-25); ABG Oxygen Saturation 95.1 % (94-97); ABG PCO2 54 mmHg (35-45); ABG PH 7.37 (7.35-7.45); ABG PO2 73 mmHg (83-108); ABG TCO2 33 mmol/L (19-24)
--- NOTE | 2018-03-03 13:55 | ECHOF ---
Referral Reason:eval MEASUREMENTS -------- HEIGHT: 165.1 cm WEIGHT: 204.1 kg BP: 119/60 RVIDd: 2.1 cm (< 3.3) IVSd: 0.9 cm (0.6 - 1.1) LVIDd: 5.3 cm (3.9 - 5.3) LVPWd: 1.1 cm (0.6 - 1.1) IVSs: 1.7 cm LVIDs: 2.5 cm LVPWs: 1.9 cm Ao Diam: 3.0 cm (2.0 - 3.7) AV Cusp: 1.9 cm (1.5 - 2.6) LA Diam: 3.5 cm (2.7 - 3.8) MV EXCURSION: 20.304 mm (> 18.000) MV EF SLOPE: 70 mm/s (70 - 150) EPSS: 1.5 cm MV E Jcarlos: 0.56 m/s MV DecT: 280 ms MV A Jcarlos: 0.31 m/s MV E/A Ratio: 1.81 RAP: 5.00 mmHg RVSP: 9.71 mmHg FINDINGS -------- Sinus rhythm. This was a technically difficult study with suboptimal views. Morbid Obesity Limited Study The left ventricular size is normal. Left ventricular wall thickness is normal. Overall left vent ricular systolic function is normal with, an EF between 55 - 60 %. The right ventricle is normal in size and function. The left atrium was not well visualized. The right atrium was not well visualized. Lumason used The aortic valve was not well visualized. The mitral valve was not well visualized. There is trace mitral regurgitation. The tricuspid valve was not well visualized. Trace tricuspid regurgitation present. The right justo tricular systolic pressure, as measured by Doppler, is 9.71mmHg. The pulmonic valve was not well visualized. CONCLUSIONS -------- 1. Sinus rhythm. 2. This was a technically difficult study with suboptimal views. 3. Morbid Obesity 4. Limited Study 5. The left ventricular size is normal. 6. Left ventricular wall thickness is normal. 7. Overall left ventricular systolic function is normal with, an EF between 55 - 60 %. 8. The right ventricle is normal in size and function. 9. The left atrium was not well visualized. 10. The right atrium was not well visualized. 11. Lumason used 12. The aortic valve was not well visualized. 13. The mitral valve was not well visualized. 14. There is trace mitral regurgitation. 15. The tricuspid valve was not well visualized. 16. Trace tricuspid regurgitation present. 17. The right ventricular systolic pressure, as measured by Doppler, is 9.71mmHg. 18. The pulmonic valve was not well visualized. DAY LIGHT RELIEF OPERATOR: Alexsandra Sullivan RDCS
--- NOTE | 2018-03-03 15:04 | P.PN ---
Subjective Progress Note Date: 03/03/18 HISTORY OF PRESENT ILLNESS: The patient is a 47-year-old female who comes in with of chronic pain. She was admitted with acute renal insufficiency which is now resolved. Per discussion with the nurse, the patient has changed her hospitalist to a different attending. The patient complains primarily lower abdominal pain. Her HIDA scan has been negative for acute cholecystitis. Per discussion with the nurse, patient's wants her gallbladder out. At the time of my assessment, patient was resting comfortably and denied any pain. PHYSICAL EXAM: GENERAL: Well-developed in no distress. Resting comfortably. HEENT: No scleral icterus. Extraocular movements grossly intact. Hears conversational speech. No nasal drainage. NECK: Supple without lymphadenopathy. CHEST: Nonlabored respirations with equal bilateral excursions. CARDIOVASCULAR: Regular rate and regular rhythm. Distal 2+ pulses. ABDOMEN: No peritonitis. Obese. Soft. Nontender. MUSCULOSKELETAL: No clubbing, cyanosis. Gross strength 5/5 distal lower extremities. NEURO: No focal or lateralizing signs. Cranial nerves 2 through 12 grossly within normal limits. PSYCH: Appropriate affect. Alert and oriented to person, place and time. SKIN: Good skin turgor. Well perfused. ASSESSMENT: 1. Morbid obesity due to excess calories. 2. Body mass index 74.9 3. Chronic generalized pain. 4. Bilateral lower abdominal pain 5. History of acute kidney injury, resolved PLAN: 1. Per discussion with nursing, patient still wants her gallbladder out despite diagnostic studies negative for acute cholecystitis 2. Clinical team has deferred second opinion to Dr. Zavaleta. 3. As her current abdominal pain has resolved. We'll sign off. Objective - Vital Signs Vital signs: Vital Signs Temp 99.1 F 03/03/18 07:00 Pulse 99 03/03/18 07:00 Resp 16 03/03/18 07:00 BP 135/72 03/03/18 07:00 Pulse Ox 94 L 03/03/18 07:00 Intake & Output 03/02/18 03/03/18 03/03/18 18:59 06:59 18:59 Other: Voiding Method Bedpan # Voids 1 3 - Labs CBC & Chem 7: 03/03/18 03:04 03/03/18 03:04 Labs: Abnormal Lab Results - Last 24 Hours (Table) 0903/03/18 03/03/18 Range/Units 03:04 03:04 03:04 RBC 3.59 L (3.80-5.40) m/uL Hgb 9.4 L (11.4-16.0) gm/dL Hct 30.4 L (34.0-46.0) % MCHC 30.9 L (31.0-37.0) g/dL RDW 16.2 H (11.5-15.5) % D-Dimer 0.85 H (<0.60) mg/L FEU BUN 18 H (7-17) mg/dL Glucose 126 H (74-99) mg/dL TSH 5.730 H (0.465-4.680) mIU/L Microbiology - Last 24 Hours (Table) 03/02/18 Unknown Gram Stain - Preliminary Sputum Assessment and Plan (1) Generalized abdominal pain Current Visit: Yes Status: Acute Code(s): R10.84 - GENERALIZED ABDOMINAL PAIN SNOMED Code(s): 828226141 (2) BEKAH (acute kidney injury) Current Visit: Yes Status: Acute Code(s): N17.9 - ACUTE KIDNEY FAILURE, UNSPECIFIED SNOMED Code(s): 62752465 (3) Abdominal pain Current Visit: Yes Status: Acute Code(s): R10.9 - UNSPECIFIED ABDOMINAL PAIN SNOMED Code(s): 75087609 (4) BMI 70 and over, adult Current Visit: No Status: Acute Code(s): Z68.45 - BODY MASS INDEX (BMI) 70 OR GREATER, ADULT SNOMED Code(s): 904522963 (5) Morbidly obese Current Visit: No Status: Acute Code(s): E66.01 - MORBID (SEVERE) OBESITY DUE TO EXCESS CALORIES SNOMED Code(s): 457731966 (6) Morbid obesity with BMI of 70 and over, adult Current Visit: No Status: Chronic Code(s): E66.01 - MORBID (SEVERE) OBESITY DUE TO EXCESS CALORIES; Z68.45 - BODY MASS INDEX (BMI) 70 OR GREATER, ADULT SNOMED Code(s): 619396931
[2018-03-03] MEDS: HEPARIN SODIUM,PORCINE 5,000 UNIT/ML 1 ML VIAL SQ SCH (15:43)
[2018-03-03] MEDS: PRAZOSIN 1 MG CAP PO SCH (22:18)
[2018-03-04] MEDS: HYDROmorphone 1 MG/ML 1 ML SYRINGE IVP PRN ×5 (00:15→20:27)
[2018-03-04] MEDS: HEPARIN SODIUM,PORCINE 5,000 UNIT/ML 1 ML VIAL SQ SCH ×3 (00:15→16:23)
[2018-03-04] MEDS: LEVOTHYROXINE 100 MCG TAB PO SCH (06:37)
[2018-03-04] MEDS: LACTATED RINGERS 1,000 ML IV SCH (09:02)
--- NOTE | 2018-03-04 09:28 | P.PN ---
Subjective Progress Note Date: 03/04/18 Principal diagnosis: Abdominal pain, altered mental status, severe morbid obesity, chronic elevated d -dimer, severe obstructive sleep apnea, obesity hypoventilation syndrome 03/04/2018, patient seen eval reexamined during the rounds she was sleeping but did wake up after calling her name and multiple time does able to respond appropriately after waking up, her arterial blood gases reviewed on room air she does have evidence of the significant hypercapnia mostly compensated would recommend to avoid excessive narcotics as much as possible, half a milligram of Dilaudid appears to be tolerating reasonably well patient would benefit from BiPAP support at nighttime during sleep and would require a sleep study on outpatient setting 03/03/2018, patient seen eval examined during the rounds while covering for Dr. Fahad Murillo patient is morbidly obese 47-year-old female admitted into service of Dr. rider decided to switch the physician now Dr. Mruillo with the primary care he has evaluated this patient last night Dr. Luna has been consulted as a second surgical opinion/sr solutions consultant, patient is currently pain- free sitting upright on the bed eating her breakfast denies any chest pain abdominal pain is better she has been on 0.5 mg of Dilaudid her labs reviewed medications reviewed as well patient is being worked up for cholecystitis and possible cholecystectomy Objective - Vital Signs Vital signs: Vital Signs Temp 99.2 F 03/04/18 06:37 Pulse 87 03/04/18 06:37 Resp 18 03/04/18 06:37 BP 118/65 03/04/18 06:37 Pulse Ox 94 L 03/04/18 06:37 Intake & Output 03/03/18 03/04/18 03/04/18 18:59 06:59 18:59 Other: Voiding Method Bedpan # Voids 1 4 # Bowel Movements 0 - Exam GENERAL: Well-developed in no acute distress, severely morbid obesity. Patient was sleeping did take a little bit longer than usual time to wake up HEENT: No sclera icterus. Extraocular movements grossly intact. Moist buccal mucosa. Head is atraumatic, normocephalic. Hears conversational speech. No nasal drainage. NECK: Supple without lymphadenopathy. CHEST: Non-labored respirations and equal bilateral excursions. CARDIOVASCULAR: Regular rate with regular rhythm. Palpable 2+ radial pulses. ABDOMEN: Soft. Nondistended. Bowel sounds present mild lower abdominal tenderness is present MUSCULOSKELETAL: No clubbing, cyanosis. NEUROLOGIC: No focal or lateralizing signs. Cranial nerves II through XII grossly intact. PSYCH: Appropriate affect. Alert and oriented to person, place and time. SKIN: Well perfused. Good skin turgor. - Labs CBC & Chem 7: 03/03/18 03:04 03/03/18 03:04 Labs: Abnormal Lab Results - Last 24 Hours (Table) 03/03/18 Range/Units 12:30 ABG pCO2 54 H (35-45) mmHg ABG pO2 73 L (83-108) mmHg ABG HCO3 32 H (21-25) mmol/L ABG Total CO2 33 H (19-24) mmol/L Microbiology - Last 24 Hours (Table) 03/02/18 Unknown Gram Stain - Preliminary Sputum Assessment and Plan Assessment: Abdominal discomfort and pain likely chronic cholecystitis patient is being evaluated by surgical services Obesity hypoventilation syndrome with significant hypercapnia Obstructive sleep apnea Altered mental status of unclear etiology now patient is more awake and alert we 'll do arterial arterial blood gas to evaluate for obesity hypoventilation and chronic hypercapnia Chronically elevated d-dimer patient has been worked up before, see Dr. Wiley NOTE note will put patient on DVT and peptic ulcer disease prophylaxis Chronic intermittent chest pain, cardiovascular consultation has been obtained awaiting their recommendations Acute renal failure and fluid resuscitation renal functions have been normalized Plan: Gentle rehydration Arterial blood gas results reviewed Cardiovascular consultation We will initiate trial of BiPAP at nighttime and when necessary during the day, will initiate with IPAP of 10 and EPAP of 5 and oxygen to keep saturation around 90% DVT and peptic ulcer disease prophylaxis Pain management as per started by Dr. Fahad Murillo Further recommendations pending plan of care as per clinical response of the patient Repeat labs tomorrow Time with Patient: Greater than 30
[2018-03-04] MEDS: SPIRONOLACTONE 25 MG TAB PO SCH ×2 (11:23→20:31)
[2018-03-04] MEDS: ESCITALOPRAM 10 MG TAB PO SCH (11:24)
[2018-03-04] MEDS: PANTOPRAZOLE 40 MG TABLET PO SCH (11:24)
[2018-03-04] MEDS: METOPROLOL TARTRATE 50 MG TAB PO SCH ×2 (11:24→20:31)
[2018-03-04] MEDS: GABAPENTIN 300 MG CAP PO SCH ×3 (11:24→20:31)
[2018-03-04] MEDS: ALLOPURINOL 100 MG TAB PO SCH (11:24)
[2018-03-04] MEDS: FOLIC ACID 1 MG TAB PO SCH (11:25)
[2018-03-04] MEDS: CYCLOBENZAPRINE 10 MG TAB PO SCH ×3 (11:25→20:31)
[2018-03-04] MEDS: FERROUS SULFATE 325 MG TAB PO SCH (11:25)
--- NOTE | 2018-03-04 12:16 | P.CRDCN ---
History of Present Illness History of present illness: Mrs. Cotton is a pleasant 47-year-old female past medical history significant for hypertension, GERD, history of PE, chronic kidney disease and morbid obesity. She also states back in her 20s she suffered an NV during child with toxemia but has no stents in place. We have been asked to see her in consultation for chest pain. 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 She complains of pain that originates in the epigastric region that wraps around her body under her breasts and around her back. Described as a tight band around her body. The pain is constant only getting better after receiving [place] and Dilaudid for pain control. She complains of mild shortness of breath described as inability to take a deep breath when the pain is at its highest intensity. She denies radiation to the arm, neck or jaw. She denies associated palpitations, dizziness, nausea, vomiting or diaphoresis. Was seen in consultation by surgical services and they have recommended no acute surgical intervention at this time. The patient is requesting a second opinion. Another surgeon is plan to see the patient. She has been febrile at times throughout this admission peak temperature 100.1 F. EKG reveals sinus mechanism with no acute ST or T wave abnormalities noted. Chest x-ray on admission is negative for acute cardiopulmonary process. Laboratory data reviewed, hemoglobin 9.4, platelets 312, d-dimer 0.85, sodium 139, potassium 4.7, cardiac enzymes negative 3, TSH 5.73 with a free T4 of 0.92 , creatinine 0.93, NT proBNP 96. CT of the abdomen and pelvis reveals hydropic gallbladder no surrounding inflammation with hepatomegaly, mild hemicolonic diverticulosis with no diverticulitis. HIDA scan reveals a large gallbladder with hypokinetic gallbladder ejection fraction of 26% with stimulation consistent with gallbladder dysfunction. Echocardiogram obtained reveals preserved left ventricular systolic function with ejection fraction 55-60%. Current cardiac medications include Lopressor 50 mg twice a day, Aldactone 50 mg twice a day and prazosin 1 mg at bedtime. She also takes Synthroid, [place], Neurontin, folic acid, ferrous sulfate, Lexapro, Voltaren, Valium, Flexeril and allopurinol. At the time of my exam: CONSTITUTIONAL: Denies fever. Denies chills. EYES: Denies blurred vision. Denies vision changes. Denies eye pain. EARS, NOSE, MOUTH & THROAT: Denies headache. Denies sore throat. Denies ear pain. CARDIOVASCULAR: Denies chest pain. Denies shortness of breath. Denies orthopnea. Denies PND. Denies palpitations. RESPIRATORY: Denies cough. GASTROINTESTINAL: Complains of epigastric/abdominal pain. Denies diarrhea. Denies constipation. Denies nausea. Denies vomiting. MUSCULOSKELETAL: Denies myalgias. INTEGUMENTARY: Denies pruitis. Denies rash. NEUROLOGIC: Denies numbness. Denies tingling. Denies weakness. PSYCHIATRIC: Denies anxiety. Denies depression. ENDOCRINE: Denies fatigue. Denies weight change. Denies polydipsia. Denies polyurina. GENITOURINARY: Denies burning, hematuria or urgency with micturation. HEMATOLOGIC: Denies history of anemia. Denies bleeding. Blood pressure 118/65 heart rate 87 afebrile maintaining oxygen saturation on room air GENERAL: This is a 47-year-old for an Irish female in no apparent distress at the time of my examination. Morbidly obese. HEENT: Head is atraumatic, normocephalic. Pupils are equal, round. Sclerae anicteric. Conjunctivae are clear. Mucous membranes of the mouth are moist. Neck is supple. There is no jugular venous distention. No carotid bruit is heard. LUNGS: Clear to auscultation no wheezes, rales or rhonchi. No chest wall tenderness is noted on palpation or with deep breathing. Diminished bilaterally. HEART: Regular rate and rhythm without murmurs, rubs or gallops. S1 and S2 heard. ABDOMEN: Soft, nontender. Bowel sounds are heard. No organomegaly noted. EXTREMITIES: No evidence of peripheral edema and no calf tenderness noted. VASCULAR: Radial and dorsalis pedis pulses palpated, no evidence of clubbing. NEUROLOGIC: Patient is awake, alert and oriented x3. ASSESSMENT Epigastric pain. Leukocytosis, resolved Febrile illness Hypertension Morbid obesity History of PE in the past with an elevated d-dimer PLAN An acute coronary event has been ruled out with no EKG evidence of ischemia and negative cardiac enzymes. Elevated d-dimer, further evaluation per PCP. Ongoing medical management per primary care team. Thank you kindly for this consultation. Nurse Practitioner note has been reviewed, I agree with a documented findings and plan of care. Patient was seen and examined. Past Medical History Past Medical History: GERD/Reflux, GI Bleed, Hypertension, Myocardial Infarction (NV), Osteoarthritis (OA), Pulmonary Embolus (PE), Renal Disease, Rheumatoid Arthritis (RA), Syncope Additional Past Medical History / Comment(s): Obesity, numbness/tingling bilateral feet, chronic phil leg wound/cellulitis currently healed, previous rt leg ulcers now healed, lower leg edema, chronic low back pain with sciatica, tail bone fracture, migraines, pt states she had toxemia with 1st and had a NV, bilateral tinnitis occasionally, bronchitis, sinus problems, gout bilateral feet, carpal tunnel syndrome bilateral wrists, hypothyoid, HTN but only with anxiety, colitis, IBS, chron's, diverticular dx, occasional low blood sugar, nephrolithiasis-pt passed on her own, chronic anemia, lower GI bleed, UTIs."sickle cell" Last Myocardial Infarction Date:: 1989 History of Any Multi-Drug Resistant Organisms: None Reported Past Surgical History: Section, Tubal Ligation Additional Past Surgical History / Comment(s): colonoscopy, 4 c-sections Past Anesthesia/Blood Transfusion Reactions: No Reported Reaction Additional Past Anesthesia/Blood Transfusion Reaction / Comment(s): Pt has received blood in the past and had itching, has had another transfusion since with no reaction. Smoking Status: Never smoker - Past Family History Father History Unknown: Yes Additional Family Medical History / Comment(s): Pt was adopted and does not know parents/family medical hx. Medications and Allergies Home Medications Medication Instructions Recorded Confirmed Type Ferrous Sulfate [Iron (65 MG 325 mg PO DAILY 08/28/14 03/01/18 History Elemental)] Levothyroxine Sodium [Synthroid] 25 mcg PO DAILY 05/09/16 03/01/18 History Spironolactone 50 mg PO BID 08/10/16 03/01/18 History Allopurinol [Zyloprim] 200 mg PO DAILY 04/24/17 03/01/18 History Escitalopram [Lexapro] 10 mg PO DAILY 04/24/17 03/01/18 History Prazosin [Minipress] 1 mg PO HS 04/24/17 03/01/18 History Cyclobenzaprine [Flexeril] 10 mg PO TID 08/02/17 03/01/18 History Diclofenac Sodium [Voltaren] 75 mg PO BID 08/02/17 03/01/18 History Folic Acid 1 mg PO DAILY 12/01/17 03/01/18 History Metoprolol Tartrate [Lopressor] 50 mg PO BID 12/01/17 03/01/18 History Gabapentin [Neurontin] 600 mg PO TID #90 cap 12/06/17 03/01/18 Rx Diazepam [Valium] 5 mg PO TID #30 tab 01/02/18 03/01/18 Rx HYDROcodone/APAP 10-325MG [[place] 1 tab PO Q6H PRN #18 tab 01/02/18 03/01/18 Rx 10-325] Allergies Allergy/AdvReac Type Severity Reaction Status Date / Time oxycodone HCl [From Percocet] Allergy Rash/Hives Verified 03/01/18 14:27 procaine HCl [From Novocain] Allergy facial Verified 03/01/18 14:27 swelling Physical Exam Vitals: Vital Signs Temp Pulse Resp BP Pulse Ox 03/04/18 06:37 99.2 F 87 18 118/65 94 L 03/03/18 23:00 98.5 F 109 H 24 144/71 95 03/03/18 15:00 97.8 F 99 20 134/101 94 L Intake and Output 03/03/18 03/04/18 03/04/18 22:59 06:59 14:59 Other: Voiding Method Bedpan # Voids 1 4 Results 03/03/18 03:04 03/03/18 03:04 Current Medications Generic Name Dose Route Start Last Admin Trade Name Freq PRN Reason Stop Dose Admin Hydrocodone Bitart/Acetaminophen 1 each 03/01/18 16:45 03/02/18 18:38 [place] 10 PO 1 each Q6H PRN Administration Moderate Pain Allopurinol 100 mg 03/02/18 09:00 03/04/18 11:24 Zyloprim PO 100 mg DAILY BERNABE Administration Cyclobenzaprine HCl 10 mg 03/01/18 18:15 03/04/18 11:25 Flexeril PO 10 mg TID BERNABE Administration Escitalopram Oxalate 10 mg 03/02/18 09:00 03/04/18 11:24 Lexapro PO 10 mg DAILY BERNABE Administration Ferrous Sulfate 325 mg 03/03/18 09:00 03/04/18 11:25 Feosol PO 325 mg DAILY BERNABE Administration Folic Acid 1 mg 03/02/18 12:00 03/04/18 11:25 Folic Acid PO 1 mg 1200 BERNABE Administration Gabapentin 600 mg 03/01/18 22:00 03/04/18 11:24 Neurontin PO 600 mg TID BERNABE Administration Heparin Sodium (Porcine) 5,000 unit 03/03/18 16:00 03/04/18 11:24 Heparin SQ 5,000 unit Q8HR BERNABE Administration Hydromorphone HCl 0.5 mg 03/02/18 21:05 03/04/18 11:32 Dilaudid IVP 0.5 mg Q4HR PRN Administration SEVERE Pain Lactated Ringer's 1,000 mls @ 50 mls/hr 03/01/18 18:15 03/04/18 09:02 Lactated Ringers IV 50 mls/hr .Q20H BERNABE Administration Levothyroxine Sodium 100 mcg 03/03/18 06:30 03/04/18 06:37 Synthroid PO 100 mcg DAILY@0630 BERNABE Administration Metoprolol Tartrate 50 mg 03/01/18 21:00 03/04/18 11:24 Lopressor PO 50 mg BID BERNABE Administration Naloxone HCl 0.2 mg 03/01/18 16:43 Narcan IV Q2M PRN Opioid Reversal Ondansetron HCl 4 mg 03/01/18 16:43 Zofran IVP Q8HR PRN Nausea And Vomiting Pantoprazole Sodium 40 mg 03/04/18 07:30 03/04/18 11:24 Protonix PO 40 mg [id number] BERNABE Administration Prazosin HCl 1 mg 03/01/18 21:00 03/03/18 22:18 Minipress PO 1 mg HS BERNABE Administration Spironolactone 50 mg 03/02/18 21:00 03/04/18 11:23 Aldactone PO 50 mg BID BERNABE Administration Intake and Output 03/03/18 03/04/18 03/04/18 22:59 06:59 14:59 Other: Voiding Method Bedpan # Voids 1 4 03/03/18 03:04 03/03/18 03:04
[2018-03-04] MEDS: PRAZOSIN 1 MG CAP PO SCH (20:31)
[2018-03-04] MEDS: HYDROcodone/APAP 10-325MG 1 EACH TAB PO PRN (22:13)
[2018-03-05] MEDS: HEPARIN SODIUM,PORCINE 5,000 UNIT/ML 1 ML VIAL SQ SCH ×4 (00:09→23:08)
[2018-03-05] MEDS: HYDROmorphone 1 MG/ML 1 ML SYRINGE IVP PRN ×6 (00:10→23:12)
[2018-03-05] MEDS: LACTATED RINGERS 1,000 ML IV SCH (05:57)
[2018-03-05] MEDS: SPIRONOLACTONE 25 MG TAB PO SCH ×2 (07:55→20:58)
[2018-03-05] MEDS: LEVOTHYROXINE 100 MCG TAB PO SCH (07:55)
[2018-03-05] MEDS: FERROUS SULFATE 325 MG TAB PO SCH (07:55)
[2018-03-05] MEDS: CYCLOBENZAPRINE 10 MG TAB PO SCH ×3 (07:55→20:59)
[2018-03-05] MEDS: ALLOPURINOL 100 MG TAB PO SCH (07:55)
[2018-03-05] MEDS: GABAPENTIN 300 MG CAP PO SCH ×3 (07:55→20:58)
[2018-03-05] MEDS: FOLIC ACID 1 MG TAB PO SCH (07:55)
[2018-03-05] MEDS: METOPROLOL TARTRATE 50 MG TAB PO SCH ×2 (07:55→20:59)
[2018-03-05] MEDS: ESCITALOPRAM 10 MG TAB PO SCH (07:56)
[2018-03-05] MEDS: PANTOPRAZOLE 40 MG TABLET PO SCH (07:56)
[2018-03-05 09:24] LABS: Anisocytosis Slight; Basophils % (A) 0 %; Eosinophils # (A) 0.4 k/uL (0-0.7); Eosinophils % (A) 4 %; HCT 29.4 % (34.0-46.0); HGB 9.3 gm/dL (11.4-16.0); Hypochromasia Slight; Lymphocytes % (A) 32 %; MCH 26.5 pg (25.0-35.0); MCHC 31.7 g/dL (31.0-37.0); MCV 83.6 fL (80.0-100.0); Mean Platelet Volume 6.9; Monocytes # (A) 0.4 k/uL (0-1.0); Monocytes % (A) 4 %; Neutrophils # (A) 5.3 k/uL (1.3-7.7); Neutrophils % (A) 58 %; Platelet Count 290 k/uL (150-450); RBC 3.51 m/uL (3.80-5.40); RDW 16.5 % (11.5-15.5); WBC 9.1 k/uL (3.8-10.6)
[2018-03-05 09:33] LABS: ALT 10 U/L (9-52); AST 21 U/L (14-36); Albumin 3.5 g/dL (3.5-5.0); Alkaline Phosphatase 46 U/L (38-126); Anion Gap 10 mmol/L; Blood Urea Nitrogen 12 mg/dL (7-17); Carbon Dioxide 26 mmol/L (22-30); Chloride 103 mmol/L (98-107); Glucose 133 mg/dL (74-99); Sodium 139 mmol/L (137-145); Total Bilirubin 0.5 mg/dL (0.2-1.3); Total Protein 6.7 g/dL (6.3-8.2)
[2018-03-05 10:01] LABS: Potassium 5.4 mmol/L (3.5-5.1)
[2018-03-05] MEDS ORDERED: SODIUM POLYSTYRENE SULFONATE 15 GM/60 ML BOTTLE PO STA (14:09)
--- NOTE | 2018-03-05 15:19 | P.GSCN ---
History of Present Illness Consult date: 03/05/18 Reason for Consult: Chronic cholecystitis History of present illness: This is a 47-year-old female. The patient is morbidly obese with BMI of 75. Patient has had complaints of some vague abdominal pain. Patient HIDA scan which showed a diminished ejection fraction of 26% consistent with chronic biliary dyskinesia. Today patient resting comfortably in bed. She denies a significant abdominal pain. She currently is hungry. Past Medical History Past Medical History: GERD/Reflux, GI Bleed, Hypertension, Myocardial Infarction ([place]), Osteoarthritis (OA), Pulmonary Embolus (PE), Renal Disease, Rheumatoid Arthritis (RA), Syncope Additional Past Medical History / Comment(s): Obesity, numbness/tingling bilateral feet, chronic phil leg wound/cellulitis currently healed, previous rt leg ulcers now healed, lower leg edema, chronic low back pain with sciatica, tail bone fracture, migraines, pt states she had toxemia with 1st and had a UT, bilateral tinnitis occasionally, bronchitis, sinus problems, gout bilateral feet, carpal tunnel syndrome bilateral wrists, hypothyoid, HTN but only with anxiety, colitis, IBS, chron's, diverticular dx, occasional low blood sugar, nephrolithiasis-pt passed on her own, chronic anemia, lower GI bleed, UTIs."sickle cell" Last Myocardial Infarction Date:: 1989 History of Any Multi-Drug Resistant Organisms: None Reported Past Surgical History: Section, Tubal Ligation Additional Past Surgical History / Comment(s): colonoscopy, 4 c-sections Past Anesthesia/Blood Transfusion Reactions: No Reported Reaction Additional Past Anesthesia/Blood Transfusion Reaction / Comm: Pt has received blood in the past and had itching, has had another transfusion since with no reaction. Smoking Status: Never smoker - Past Family History Father History Unknown: Yes Additional Family Medical History / Comment(s): Pt was adopted and does not know parents/family medical hx. Medications and Allergies Home Medications Medication Instructions Recorded Confirmed Type Ferrous Sulfate [Iron (65 MG 325 mg PO DAILY 08/28/14 03/01/18 History Elemental)] Levothyroxine Sodium [Synthroid] 25 mcg PO DAILY 05/09/16 03/01/18 History Spironolactone 50 mg PO BID 08/10/16 03/01/18 History Allopurinol [Zyloprim] 200 mg PO DAILY 04/24/17 03/01/18 History Escitalopram [Lexapro] 10 mg PO DAILY 04/24/17 03/01/18 History Prazosin [Minipress] 1 mg PO HS 04/24/17 03/01/18 History Cyclobenzaprine [Flexeril] 10 mg PO TID 08/02/17 03/01/18 History Diclofenac Sodium [Voltaren] 75 mg PO BID 08/02/17 03/01/18 History Folic Acid 1 mg PO DAILY 12/01/17 03/01/18 History Metoprolol Tartrate [Lopressor] 50 mg PO BID 12/01/17 03/01/18 History Gabapentin [Neurontin] 600 mg PO TID #90 cap 12/06/17 03/01/18 Rx Diazepam [Valium] 5 mg PO TID #30 tab 01/02/18 03/01/18 Rx HYDROcodone/APAP 10-325MG [[place] 1 tab PO Q6H PRN #18 tab 01/02/18 03/01/18 Rx 10-325] Allergies Allergy/AdvReac Type Severity Reaction Status Date / Time oxycodone HCl [From Percocet] Allergy Rash/Hives Verified 03/01/18 14:27 procaine HCl [From Novocain] Allergy facial Verified 03/01/18 14:27 swelling Surgical - Exam Vital Signs Temp Pulse Resp BP Pulse Ox 97.9 F 103 H 20 120/64 95 03/01/18 13:55 03/01/18 13:55 03/01/18 13:55 03/01/18 13:55 03/01/18 13:55 - General well nourished, no distress - Eyes PERRL - ENT normal pinna - Neck no masses - Respiratory normal expansion - Cardiovascular Rhythm: regular - Abdomen Abdomen: soft, non tender Results - Labs 03/05/18 08:52 03/05/18 08:52 Abnormal Lab Results - Last 24 Hours (Table) 03/05/18 03/05/18 Range/Units 08:52 08:52 RBC 3.51 L (3.80-5.40) m/uL Hgb 9.3 L (11.4-16.0) gm/dL Hct 29.4 L (34.0-46.0) % RDW 16.5 H (11.5-15.5) % Potassium 5.4 H (3.5-5.1) mmol/L Glucose 133 H (74-99) mg/dL Diabetes panel 03/05/18 Range/Units 08:52 Sodium 139 (137-145) mmol/L Potassium 5.4 H (3.5-5.1) mmol/L Chloride 103 (98-107) mmol/L Carbon Dioxide 26 (22-30) mmol/L BUN 12 (7-17) mg/dL Creatinine 0.75 (0.52-1.04) mg/dL Glucose 133 H (74-99) mg/dL Calcium 9.0 (8.4-10.2) mg/dL AST 21 (14-36) U/L ALT 10 (9-52) U/L Alkaline Phosphatase 46 (38-126) U/L Total Protein 6.7 (6.3-8.2) g/dL Albumin 3.5 (3.5-5.0) g/dL Calcium panel 03/05/18 Range/Units 08:52 Calcium 9.0 (8.4-10.2) mg/dL Albumin 3.5 (3.5-5.0) g/dL Pituitary panel 03/05/18 Range/Units 08:52 Sodium 139 (137-145) mmol/L Potassium 5.4 H (3.5-5.1) mmol/L Chloride 103 (98-107) mmol/L Carbon Dioxide 26 (22-30) mmol/L BUN 12 (7-17) mg/dL Creatinine 0.75 (0.52-1.04) mg/dL Glucose 133 H (74-99) mg/dL Calcium 9.0 (8.4-10.2) mg/dL Adrenal panel 03/05/18 Range/Units 08:52 Sodium 139 (137-145) mmol/L Potassium 5.4 H (3.5-5.1) mmol/L Chloride 103 (98-107) mmol/L Carbon Dioxide 26 (22-30) mmol/L BUN 12 (7-17) mg/dL Creatinine 0.75 (0.52-1.04) mg/dL Glucose 133 H (74-99) mg/dL Calcium 9.0 (8.4-10.2) mg/dL Total Bilirubin 0.5 (0.2-1.3) mg/dL AST 21 (14-36) U/L ALT 10 (9-52) U/L Alkaline Phosphatase 46 (38-126) U/L Total Protein 6.7 (6.3-8.2) g/dL Albumin 3.5 (3.5-5.0) g/dL Assessment and Plan Assessment: Intermittent vague abdominal pain. HIDA scan suggestive of biliary dyskinesia. There is no evidence of acute cholecystitis. Given the patient's underlying comorbidities and super obesity I would recommend observation this time. No surgical intervention is planned.
--- NOTE | 2018-03-05 19:36 | PN ---
PROGRESS NOTE DATE OF SERVICE: 03/05/2018 This patient is a 47-year-old morbidly obese female, who has refused the BiPAP. The patient does have obesity hypoventilation and severe degree of obstructive sleep apnea. Patient is being evaluated for laparoscopy cholecystectomy versus open cholecystectomy by General surgery. Hemodynamic status is stable. Last set of vitals include blood pressure is 125/80, respiratory rate is 20, pulse 87, temp is 98, saturation 97% on 2 L oxygen. HEENT unremarkable. Neck is supple. Lungs are good air entry bilaterally. Heart regular rate, and rhythm. Abdomen is soft. Neurologic exam is otherwise awake and alert. The sputum studies have been no growth. Labs reviewed. Medications reviewed. IMPRESSION: 1. Obesity hypoventilation syndrome with hypercapnic hypoxic respiratory failure related to severe morbid obesity. 2. Obstructive sleep apnea. 3. Altered mental status. Clinically has improved. 4. Abdominal discomfort and pain, likely cholecystitis. General surgeon is the following. Patient is undergoing cardiovascular evaluation as well. We will follow closely. Further recommendations pending. Continue deep breathing exercises. Incentive spirometry. The patient has been advised to use the BiPAP machine. We will follow. MMODL / IJN: [id number] /
[2018-03-05] MEDS: HYDROcodone/APAP 10-325MG 1 EACH TAB PO PRN (20:54)
[2018-03-05] MEDS: PRAZOSIN 1 MG CAP PO SCH (20:58)
[2018-03-06] MEDS: HYDROcodone/APAP 10-325MG 1 EACH TAB PO PRN ×3 (02:15→18:57)
[2018-03-06] MEDS: HYDROmorphone 1 MG/ML 1 ML SYRINGE IVP PRN ×5 (03:22→20:29)
[2018-03-06] MEDS: LEVOTHYROXINE 100 MCG TAB PO SCH (06:21)
[2018-03-06] MEDS: LACTATED RINGERS 1,000 ML IV SCH ×2 (06:28→20:28)
[2018-03-06] MEDS: SPIRONOLACTONE 25 MG TAB PO SCH ×2 (09:09→20:29)
[2018-03-06] MEDS: ESCITALOPRAM 10 MG TAB PO SCH (09:09)
[2018-03-06] MEDS: PANTOPRAZOLE 40 MG TABLET PO SCH (09:09)
[2018-03-06] MEDS: HEPARIN SODIUM,PORCINE 5,000 UNIT/ML 1 ML VIAL SQ SCH ×3 (09:09→23:05)
[2018-03-06] MEDS: METOPROLOL TARTRATE 50 MG TAB PO SCH ×2 (09:09→20:29)
[2018-03-06] MEDS: ALLOPURINOL 100 MG TAB PO SCH (09:09)
[2018-03-06] MEDS: FOLIC ACID 1 MG TAB PO SCH (09:10)
[2018-03-06] MEDS: FERROUS SULFATE 325 MG TAB PO SCH (09:10)
[2018-03-06] MEDS: GABAPENTIN 300 MG CAP PO SCH ×3 (09:10→20:29)
[2018-03-06] MEDS: CYCLOBENZAPRINE 10 MG TAB PO SCH ×3 (09:23→20:29)
--- NOTE | 2018-03-06 16:08 | P.PN ---
Subjective Progress Note Date: 03/06/18 47-year-old female super morbid obese BMI 74 resting in bed comfortably. Patient reports no significant abdominal pain states constantly hungry. Patient did have a HIDA scan prior to diminished EF 26 consistent with chronic biliary dyskinesis. Did reinforce to the patient no surgical intervention at this time in regards to the gallbladder Objective - Vital Signs Vital signs: Vital Signs Temp 97.5 F L 03/06/18 14:28 Pulse 78 03/06/18 14:28 Resp 22 03/06/18 14:28 BP 135/92 03/06/18 14:28 Pulse Ox 97 03/06/18 14:28 Intake & Output 03/05/18 03/06/18 03/06/18 18:59 06:59 18:59 Intake Total 480 480 Balance 480 480 Intake: Oral 480 480 Other: # Voids 1 1 1 # Bowel Movements 0 0 - Exam Physical exam 47-year-old female resting in bed appears in no acute distress watching TV Lungs diminished at the bases otherwise clear Heart S1-S2 audible Abdomen morbidly obese not able to elicit any abdominal discomfort with palpitation active bowel tones nondistended nontender patient reports abdominal pain improved no nausea no vomiting no stooling Extremities generalized edema to the lower extremities chronic - Labs CBC & Chem 7: 03/05/18 08:52 03/05/18 08:52 Assessment and Plan Assessment: Impression intermittent vague abdominal pain HIDA scan suggestive of biliary dyskinesis No evidence of acute cholecystitis Super morbid obesity BMI 74 Obesity hypoventilation syndrome with significant hypercapnia Plan No surgical intervention at this time Continue to recommend observation From a surgical perspective patient is felt to be appropriate to be discharged with no further surgical recommendations defer to the timing to the attending DVT and GI prophylaxis The above impression and plan of care have been discussed and directed by signing physician. Jackie Mendez nurse practitioner acting as scribe for signing physician.
[2018-03-06] MEDS: PRAZOSIN 1 MG CAP PO SCH (20:29)
[2018-03-07] MEDS: HYDROmorphone 1 MG/ML 1 ML SYRINGE IVP PRN ×5 (00:25→21:01)
[2018-03-07] MEDS: HYDROcodone/APAP 10-325MG 1 EACH TAB PO PRN ×3 (01:40→18:01)
--- NOTE | 2018-03-07 02:43 | PN ---
PROGRESS NOTE SUBJECTIVE: 47-year-old female, acute kidney injury, abdominal pain, acute cholecystitis. Surgeon outpatient. Patient will need to go to rehab center until she gets her gastric sleeve performed which Dr. Zavaleta will do as an outpatient. Maintained on home medications. Cardiovascular S1-S2. Lungs clear. GI soft. Hematologic Homans. BMI is over 40. Hemoglobin is 9.3. BUN is 12, creatinine 0.75. Potassium is elevated at 5.4. Will repeat labs because thyroid was recently increased. ASSESSMENT: 1. Acute cholecystitis causing chest pain. 2. Morbid obesity, get gastric sleeve scheduled as an outpatient. Cleared for discharge to rehab center. She is unable to ambulate due to severe morbid obesity , the knees. She is to follow up as an outpatient. Do gastric sleeve surgery before knee surgery to get her weight down. MMODL / IJN: [id number] /
[2018-03-07] MEDS: LEVOTHYROXINE 100 MCG TAB PO SCH (06:20)
[2018-03-07] MEDS: FERROUS SULFATE 325 MG TAB PO SCH (08:36)
[2018-03-07] MEDS: FOLIC ACID 1 MG TAB PO SCH (08:36)
[2018-03-07] MEDS: ESCITALOPRAM 10 MG TAB PO SCH (08:37)
[2018-03-07] MEDS: METOPROLOL TARTRATE 50 MG TAB PO SCH ×2 (08:37→21:03)
[2018-03-07] MEDS: CYCLOBENZAPRINE 10 MG TAB PO SCH ×3 (08:37→21:03)
[2018-03-07] MEDS: PANTOPRAZOLE 40 MG TABLET PO SCH (08:37)
[2018-03-07] MEDS: GABAPENTIN 300 MG CAP PO SCH ×3 (08:37→21:03)
[2018-03-07] MEDS: SPIRONOLACTONE 25 MG TAB PO SCH ×2 (08:37→21:03)
[2018-03-07] MEDS: ALLOPURINOL 100 MG TAB PO SCH (08:37)
[2018-03-07] MEDS: HEPARIN SODIUM,PORCINE 5,000 UNIT/ML 1 ML VIAL SQ SCH ×2 (08:39→14:45)
[2018-03-07 09:46] LABS: Anisocytosis Slight; Basophils % (A) 0 %; Eosinophils # (A) 0.3 k/uL (0-0.7); Eosinophils % (A) 4 %; HCT 29.8 % (34.0-46.0); HGB 9.3 gm/dL (11.4-16.0); Lymphocytes # (A) 2.9 k/uL (1.0-4.8); Lymphocytes % (A) 33 %; MCH 26.1 pg (25.0-35.0); MCHC 31.3 g/dL (31.0-37.0); MCV 83.4 fL (80.0-100.0); Mean Platelet Volume 6.8; Monocytes # (A) 0.2 k/uL (0-1.0); Monocytes % (A) 3 %; Neutrophils # (A) 5.2 k/uL (1.3-7.7); Neutrophils % (A) 60 %; Platelet Count 311 k/uL (150-450); RBC 3.57 m/uL (3.80-5.40); RDW 16.4 % (11.5-15.5); WBC 8.8 k/uL (3.8-10.6)
[2018-03-07 10:03] LABS: ALT 12 U/L (9-52); AST 17 U/L (14-36); Albumin 3.5 g/dL (3.5-5.0); Alkaline Phosphatase 66 U/L (38-126); Anion Gap 10 mmol/L; Blood Urea Nitrogen 14 mg/dL (7-17); Calcium 8.9 mg/dL (8.4-10.2); Carbon Dioxide 28 mmol/L (22-30); Chloride 103 mmol/L (98-107); Glucose 170 mg/dL (74-99); Potassium 4.2 mmol/L (3.5-5.1); Sodium 141 mmol/L (137-145); Total Bilirubin 0.3 mg/dL (0.2-1.3); Total Protein 6.6 g/dL (6.3-8.2)
--- NOTE | 2018-03-07 14:12 | CDI ---
Last Revision, May 2017 Documentation Clarification Form Date: 03/07/18 From: Claire Joe RN, CCDS Admit Date: 03/05/2018 1:21:00 PM Patient Name: Shireen Cotton Visit Number: [id number] Discharge Date: ATTENTION: The Clinical Documentation Specialists (CDI) and [facility] Coding Staff appreciate your assistance in clarifying documentation. Please respond to the clarification below the line at the bottom and electronically sign. The CDI & [facility] Coding staff will review the response and follow-up if needed. Please note: Queries are made part of the Legal Health Record. If you have any questions, please contact the author of this message via ITS. Fahad Meza MD Conflicting documentation has been found in the medical record. Admit on 03/05/18 Dr. Russell for evaluation for laparoscopy cholecystectomy versus open cholecystectomy. Abdominal pain likely cholecystitis. 03/06/18 Attending (Dr. Murillo) Acute cholecystitis causing chest pain. Surgery evaluation: Diagnostic studies negative for acute cholecystitis. HIDA scan diminished EF 26 consistent with chronic biliary dyskinesis. No surgical intervention at this time in regards to the gallbladder. 03/06 Surgery: No evidence of acute cholecystitis. History/Risk Factors: Super Morbid obesity, GERD, Hypertension, Myocardial Infarction, Obesity hypoventilation syndrome Clinical Indicators: Patient has complaints of abdominal pain and acute cholecystitis was ruled out with no intervention . Patient still wants her gallbladder out despite diagnostic studies. No surgical intervention planned. Treatment: Monitor and treat pain IV Fluids Monitor labs In your opinion what is the most clinically appropriate diagnosis for this patient? Acute cholecystitis ruled in Acute cholecystitis ruled out Other explanation of clinical findings (please specify) Unable to determine (no explanation for clinical findings) Please continue to document in your progress notes and discharge summary in order to capture severity of illness and risk of mortality. Include clinical findings that support your diagnosis. MTDD
[2018-03-07 14:13] VITALS: BMI 74.9
--- NOTE | 2018-03-07 15:06 | CDI ---
Last Revision, May 2017 Documentation Clarification Form Date: 03/07/2018 2:13:59 PM From: Claire Joe RN, CCDS Admit Date: 03/05/2018 1:21:00 PM Patient Name: Shireen Cotton Visit Number: [id number] Discharge Date: ATTENTION: The Clinical Documentation Specialists (CDI) and [facility] Coding Staff appreciate your assistance in clarifying documentation. Please respond to the clarification below the line at the bottom and electronically sign. The CDI & [facility] Coding staff will review the response and follow-up if needed. Please note: Queries are made part of the Legal Health Record. If you have any questions, please contact the author of this message via ITS. Ladarius Montiel MD 03/05/18 Obesity hypoventilation syndrome with hypercapnic hypoxic respiratory failure related to severe morbid obesity was in you documentation. History/Risk Factors: Obesity hypoventilation, Severe degree of obstructive sleep apnea, Morbid obesity BMI 74.9 Clinical Indicators: Physical Therapy Assessment: patient had increased shortness on breath with bed mobility activity, returned to baseline within one minute sitting rest break. Vital signs: 125/80 87 20 98 97 % 2/L NC 03/07/18 102/63 96 22 98.7 94 % RA Lung/Breathing assessment: good air entry bilaterally. Treatment: Deep breathing exercise, Incentive spirometry Advised to use BIPAP machine In your professional opinion, can you please further clarify the acuity of the hypercapnic hypoxic respiratory failure? Chronic Acute on Chronic Other Diagnosis, please specify Unable to determine Please continue to document in your progress in order to capture severity of illness and risk of mortality. Include clinical findings that support your diagnosis. MTDD
[2018-03-07] MEDS: LACTATED RINGERS 1,000 ML IV SCH (18:01)
[2018-03-07] MEDS: PRAZOSIN 1 MG CAP PO SCH (21:03)
--- NOTE | 2018-03-07 23:56 | PN ---
PROGRESS NOTE SUBJECTIVE: A 47-year-old -[place] female needs a gastric sleeve surgery, needs bilateral knee surgery, unable to ambulate, which will need senior care placement. The patient has moderate cholecystitis which was worked up as an outpatient as well as gastric sleeve. Mobility is poor. CARDIOVASCULAR: S1, S2. LUNGS: Clear. GI: Soft. ASSESSMENT: 1. Severe lymphedema. 2. Severe morbid obesity. 3. Cholecystitis, moderate. 4. Osteoarthritis, severe. 5. Diastolic congestive heart failure. Possibly outpatient treatment will be done for surgery on a gastric sleeve. She will follow up with Dr. Zavaleta for that and cholecystitis surgery. She told me she wants to go to [facility], where her friend is. MMFRAN / DAVIDN: [id number] /
[2018-03-08] MEDS: HYDROcodone/APAP 10-325MG 1 EACH TAB PO PRN ×2 (01:01→11:04)
[2018-03-08] MEDS: HEPARIN SODIUM,PORCINE 5,000 UNIT/ML 1 ML VIAL SQ SCH ×3 (01:01→15:40)
[2018-03-08] MEDS: HYDROmorphone 1 MG/ML 1 ML SYRINGE IVP PRN ×4 (01:26→16:53)
[2018-03-08] MEDS: LEVOTHYROXINE 100 MCG TAB PO SCH (06:26)
[2018-03-08 07:48] VITALS: RESP 16
[2018-03-08] MEDS: SPIRONOLACTONE 25 MG TAB PO SCH (09:25)
[2018-03-08] MEDS: GABAPENTIN 300 MG CAP PO SCH ×2 (09:25→15:41)
[2018-03-08] MEDS: FOLIC ACID 1 MG TAB PO SCH (09:25)
[2018-03-08] MEDS: METOPROLOL TARTRATE 50 MG TAB PO SCH (09:25)
[2018-03-08] MEDS: PANTOPRAZOLE 40 MG TABLET PO SCH (09:25)
[2018-03-08] MEDS: FERROUS SULFATE 325 MG TAB PO SCH (09:25)
[2018-03-08] MEDS: CYCLOBENZAPRINE 10 MG TAB PO SCH ×2 (09:25→15:41)
[2018-03-08] MEDS: ESCITALOPRAM 10 MG TAB PO SCH (09:25)
[2018-03-08] MEDS: ALLOPURINOL 100 MG TAB PO SCH (09:46)
--- NOTE | 2018-03-08 10:27 | DS ---
DISCHARGE SUMMARY DISCHARGE MEDICATIONS: 1. Synthroid 100 mcg p.o. daily. 2. [place] 10/325 q.i.d. 3. Gabapentin 600 t.i.d. 4. Folic acid 1 mg daily. 5. Lopressor 50 b.i.d. 6. Flexeril 10 mg t.i.d. 7. Voltaren 75 mg b.i.d. 8. Zyloprim 200 mg daily. 9. Lexapro 10 mg daily. 10.Prazosin 1 mg at bedtime. 11.Spironolactone 50 b.i.d. 12.Ferrous sulfate 325 daily. CONDITION: Stable. PROGNOSIS: Guarded. Ambulate as tolerated. HOSPITAL COURSE OF EVENTS: White female admitted with morbid obesity, abdominal pain, was found to have a moderate amount of cholecystitis. She will need outpatient appointment with Dr. Zavaleta for possible outpatient surgery. She also a gastric sleeve surgery, which to follow up in his office within a week of discharge for gastric sleeve evaluation and cholecystitis evaluation. She is unable to ambulate due to severe significant arthritis in her knees for which she will need physical therapy. She has morbid obesity treated. She saw Cardiology in the hospital as well as Surgery. Please see further orders and their recommendations. Follow up with Dr. Murillo in [facility]. Diet: Regular. Condition: Stable. Prognosis: Guarded. MMODL / DAVIDN: [id number] /
[2018-03-08] MEDS: LACTATED RINGERS 1,000 ML IV SCH (13:39)
[2018-03-08 15:00] VITALS: BP 134/82; PULSE 89; TEMP 97.7
--- NOTE | 2018-03-12 13:09 | CDI ---
Last Revision, May 2017 Documentation Clarification Form Date: 03/07/2018 2:13:00 PM From: Claire Joe RN CCDS Admit Date: 03/05/2018 1:21:00 PM Patient Name: Shireen Cotton Visit Number: [id number] Discharge Date: ATTENTION: The Clinical Documentation Specialists (CDI) and [facility] Coding Staff appreciate your assistance in clarifying documentation. Please respond to the clarification below the line at the bottom and electronically sign. The CDI & [facility] Coding staff will review the response and follow-up if needed. Please note: Queries are made part of the Legal Health Record. If you have any questions, please contact the author of this message via ITS. Ladarius Edmonds MD 03/05/18 Obesity hypoventilation syndrome with hypercapnic hypoxic respiratory failure related to severe morbid obesity was in you documentation. History/Risk Factors: Obesity hypoventilation, Severe degree of obstructive sleep apnea, Morbid obesity BMI 74.9 Clinical Indicators: Physical Therapy Assessment: patient had increased shortness on breath with bed mobility activity, returned to baseline within one minute sitting rest break. Vital signs: 125/80 87 20 98 97 % 2/L NC 03/07/18 102/63 96 22 98.7 94 % RA Lung/Breathing assessment: good air entry bilaterally. Treatment: Deep breathing exercise, Incentive spirometry Advised to use BIPAP machine In your professional opinion, can you please further clarify the acuity of the hypercapnic hypoxic respiratory failure? Chronic Other Diagnosis, please specify Unable to determine Please continue to document in your progress note in order to capture severity of illness and risk of mortality. Include clinical findings that support your diagnosis . MTDD
== END 2018-03-08 17:33 | disposition home health service (06) | DRG 444 ==
LOC: EC 13:52 → 4MS4W 16:57 → OBSVTOIN 03-05 13:21
PROVIDERS: ADMIT Family Medicine; ATTEND Family Medicine
PROC: 5A09457 Assistance with Respiratory Ventilation, 24-96 Consecutive Hours, Continuous Positive Airway Pressure (ICD-10-PCS; principal; 2018-03-04)
DX: K81.1 Chronic cholecystitis (principal); G93.41 Metabolic encephalopathy; J96.91 Respiratory failure, unspecified with hypoxia; K82.1 Hydrops of gallbladder; N17.9 Acute kidney failure, unspecified; E66.2 Morbid (severe) obesity with alveolar hypoventilation; Z68.45 Body mass index [BMI] 70 or greater, adult; I13.0 Hypertensive heart and chronic kidney disease with heart failure and stage 1 through stage 4 chronic kidney disease, or unspecified chronic kidney disease; I50.32 Chronic diastolic (congestive) heart failure; K50.90 Crohn's disease, unspecified, without complications; G62.9 Polyneuropathy, unspecified; K76.0 Fatty (change of) liver, not elsewhere classified; M17.0 Bilateral primary osteoarthritis of knee; G89.4 Chronic pain syndrome; F32.9 Major depressive disorder, single episode, unspecified; M06.9 Rheumatoid arthritis, unspecified; K21.9 Gastro-esophageal reflux disease without esophagitis; E03.9 Hypothyroidism, unspecified; G43.909 Migraine, unspecified, not intractable, without status migrainosus; M10.9 Gout, unspecified; F41.9 Anxiety disorder, unspecified; H93.13 Tinnitus, bilateral; K57.30 Diverticulosis of large intestine without perforation or abscess without bleeding; I89.0 Lymphedema, not elsewhere classified; G47.33 Obstructive sleep apnea (adult) (pediatric); K58.9 Irritable bowel syndrome, unspecified; N18.9 Chronic kidney disease, unspecified; D64.9 Anemia, unspecified; M54.40 Lumbago with sciatica, unspecified side; I25.2 Old myocardial infarction; Z71.3 Dietary counseling and surveillance; Z79.890 Hormone replacement therapy; Z79.899 Other long term (current) drug therapy; Z86.711 Personal history of pulmonary embolism; Z98.51 Tubal ligation status; Z74.01 Bed confinement status; Z87.442 Personal history of urinary calculi; Z88.4 Allergy status to anesthetic agent; Z88.5 Allergy status to narcotic agent
CPT/HCPCS: 36415; 36600; 71046; 74176; 78227; 80053; 81001; 82550; 82553; 82805; 83880; 84439; 84443; 84484; 84703; 85025; 85379; 85610; 85730; 87070; 87205; 93005; 93306; 94660; 96361; 96374; 96375; 99285

== ENCOUNTER 2018-04-05 21:02 | Emergency (ER) | payer MEDICARE, OTHER ==
--- NOTE | 2018-04-05 21:13 | ED ---
General Adult HPI - General Stated complaint: abd pain Time Seen by Provider: 04/05/18 21:12 - History of Present Illness Initial comments: Shireen is a 47-year-old female with extensive past medical history who presents to the ER for evaluation of abdominal pain and persistent diarrhea. Patient reports that she was evaluated approximately a month ago, she is admitted the hospital for possible gallbladder dysfunction and dehydration. She was discharged home with a plan to follow up with surgery outpatient for possible cholecystectomy. Patient reports that time she had mild diarrhea and was told that she should increase her oral iron supplementation as that usually causes her to have some constipation and may help with her diarrhea. Patient reports that since that time she's had persistent diarrhea and over the past 2-3 day she reports she's been having multiple bouts of nonbloody diarrhea throughout the day. Patient's ambulatory abilities are limited by chronic knee pain and she states because of this she has to use a bedside commode. Patient reports that she is just getting exhausted by all of the diarrhea. In addition patient reports she has some cramping abdominal pain starts in the right upper quadrant and radiates to the left upper quadrant. Patient reports that the diarrhea is worse after eating, she reports she tried to transition to a bland diet and yesterday ate only crackers but still had diarrhea after eating. Today she reports she's only drink water due to the fear of developing worsening diarrhea. Patient has not taken any antidiarrheal or motility agents. She's not had any international travel or out side activities, she has not drink any unfiltered water, she's not been on any IV antibiotics or oral antibiotics in the past month. She is no history of C. diff diarrhea the past. - Related Data Home Medications Medication Instructions Recorded Confirmed Ferrous Sulfate [Iron (65 MG 650 mg PO DAILY 08/28/14 04/05/18 Elemental)] Spironolactone 50 mg PO BID 08/10/16 04/05/18 Allopurinol [Zyloprim] 200 mg PO DAILY 04/24/17 04/05/18 Escitalopram [Lexapro] 20 mg PO DAILY 04/24/17 04/05/18 Prazosin [Minipress] 1 mg PO HS 04/24/17 04/05/18 Diclofenac Sodium [Voltaren] 75 mg PO BID 08/02/17 04/05/18 Folic Acid 1 mg PO DAILY 12/01/17 04/05/18 Metoprolol Tartrate [Lopressor] 50 mg PO BID 12/01/17 04/05/18 DULoxetine HCL [Cymbalta] 30 mg PO DAILY 04/05/18 04/05/18 Diazepam [Valium] 5 mg PO TID PRN 04/05/18 04/05/18 Ergocalciferol (Vitamin D2) 50,000 unit PO MOTH 04/05/18 04/05/18 [Vitamin D2] Levothyroxine Sodium [Synthroid] 50 mcg PO DAILY 04/05/18 04/05/18 Previous Rx's Medication Instructions Recorded Gabapentin [Neurontin] 600 mg PO TID #90 cap 12/06/17 HYDROcodone/APAP 10-325MG [[place] 1 tab PO Q6H PRN #18 tab 01/02/18 10-325] HYDROcodone/APAP 5-325MG [[place] 1 tab PO Q6HR PRN 3 Days #8 tab 04/06/18 5-325] Loperamide [Imodium] 2 mg PO QID #30 capsule 04/06/18 Allergies Allergy/AdvReac Type Severity Reaction Status Date / Time oxycodone HCl [From Percocet] Allergy Rash/Hives Verified 04/05/18 22:33 procaine HCl [From Novocain] Allergy facial Verified 04/05/18 22:33 swelling Review of Systems ROS Statement: Those systems with pertinent positive or pertinent negative responses have been documented in the HPI. ROS Other: All systems not noted in ROS Statement are negative. Past Medical History Past Medical History: GERD/Reflux, GI Bleed, Hypertension, Myocardial Infarction ([place]), Osteoarthritis (OA), Pulmonary Embolus (PE), Renal Disease, Rheumatoid Arthritis (RA), Syncope Additional Past Medical History / Comment(s): Obesity, numbness/tingling bilateral feet, chronic phil leg wound/cellulitis currently healed, previous rt leg ulcers now healed, lower leg edema, chronic low back pain with sciatica, tail bone fracture, migraines, pt states she had toxemia with 1st and had a [place], bilateral tinnitis occasionally, bronchitis, sinus problems, gout bilateral feet, carpal tunnel syndrome bilateral wrists, hypothyoid, HTN but only with anxiety, colitis, IBS, chron's, diverticular dx, occasional low blood sugar, nephrolithiasis-pt passed on her own, chronic anemia, lower GI bleed, UTIs."sickle cell" Last Myocardial Infarction Date:: 1989 History of Any Multi-Drug Resistant Organisms: None Reported Past Surgical History: Section, Tubal Ligation Additional Past Surgical History / Comment(s): colonoscopy, 4 c-sections Past Anesthesia/Blood Transfusion Reactions: No Reported Reaction Additional Past Anesthesia/Blood Transfusion Reaction / Comment(s): Pt has received blood in the past and had itching, has had another transfusion since with no reaction. Smoking Status: Never smoker - Past Family History Father History Unknown: Yes Additional Family Medical History / Comment(s): Pt was adopted and does not know parents/family medical hx. General Exam - General Exam Comments Initial Comments: Physical Exam GENERAL: Morbidly obese, in no acute distress HENT: Normocephalic, Atraumatic. EYES: PERRL, EOMI PULMONARY: Unlabored respirations. No audible rales rhonchi or wheezing was noted. CARDIOVASCULAR: There is a regular rate and rhythm without any murmurs gallops or rubs. ABDOMEN: Soft with normal bowel sounds. Mild tenderness to palpation of the right upper quadrant SKIN: Skin is clear with no lesions or rashes and otherwise unremarkable. : Deferred NEUROLOGIC: Patient is alert and oriented x3. Moving all extremities spontaneously MUSCULOSKELETAL: Body habitus limits range of motion PSYCHIATRIC: Normal psychiatric evaluation. Limitations: no limitations Course Vital Signs 04/05/18 04/05/18 04/05/18 21:04 22:00 22:30 Temperature 98.3 F Pulse Rate 103 H 90 85 Respiratory 20 20 20 Rate Blood Pressure 153/94 142/93 142/93 O2 Sat by Pulse 98 98 97 Oximetry 04/05/18 04/06/18 04/06/18 23:30 00:00 00:30 Temperature Pulse Rate 97 92 80 Respiratory 20 22 20 Rate Blood Pressure 165/93 161/99 160/98 O2 Sat by Pulse 99 98 95 Oximetry 04/06/18 02:19 Temperature 98.1 F Pulse Rate 79 Respiratory 18 Rate Blood Pressure 164/102 O2 Sat by Pulse 96 Oximetry Medical Decision Making - Medical Decision Making The patient was seen and evaluated, history is obtained from the patient and review of medical record Patient with 1 month of diarrhea, reports is progressively worsening, no risk factors for C. diff aside from recent admission but no antibiotics. No risk factors for infectious diarrhea. Labs and ultrasound were ordered Zofran and IV fluids were ordered Labs with significant improvement from previous ER visit, no evidence of acute kidney injury, no evidence of dehydration, hemoglobin is improving Ultrasound with no evidence of acute cholecystitis, no gallstones noted Morphine was ordered for pain management after the ultrasound Results were discussed with the patient. Who expresses some upset over not having a definitive diagnosis. Supportive care was discussed with the patient including maintaining oral hydration and follow up as needed. Patient states that she is currently run out of her [place] and feels like she needs [place] for pain management. I will prescribe [place] as well as Imodium. Return parameters were discussed all patient is questions pertaining to care were answered to the best of my ability and the patient was discharged home in stable condition. - Lab Data Result diagrams: 04/05/18 21:52 04/05/18 21:52 Lab Results 04/05/18 04/05/18 Range/Units 21:52 21:52 WBC 10.1 (3.8-10.6) k/uL RBC 3.73 L (3.80-5.40) m/uL Hgb 10.0 L (11.4-16.0) gm/dL Hct 31.4 L (34.0-46.0) % MCV 84.4 (80.0-100.0) fL MCH 26.7 (25.0-35.0) pg MCHC 31.6 (31.0-37.0) g/dL RDW 15.5 (11.5-15.5) % Plt Count 355 (150-450) k/uL Neutrophils % 63 % Lymphocytes % 27 % Monocytes % 6 % Eosinophils % 3 % Basophils % 0 % Neutrophils # 6.4 (1.3-7.7) k/uL Lymphocytes # 2.7 (1.0-4.8) k/uL Monocytes # 0.6 (0-1.0) k/uL Eosinophils # 0.3 (0-0.7) k/uL Basophils # 0.0 (0-0.2) k/uL Sodium 139 (137-145) mmol/L Potassium 4.4 (3.5-5.1) mmol/L Chloride 106 (98-107) mmol/L Carbon Dioxide 26 (22-30) mmol/L Anion Gap 7 mmol/L BUN 12 (7-17) mg/dL Creatinine 0.68 (0.52-1.04) mg/dL Est GFR (CKD-EPI)AfAm >90 (>60 ml/min/1.73 sqM) Est GFR (CKD-EPI)NonAf >90 (>60 ml/min/1.73 sqM) Glucose 100 H (74-99) mg/dL Calcium 9.3 (8.4-10.2) mg/dL Total Bilirubin 0.3 (0.2-1.3) mg/dL AST 14 (14-36) U/L ALT 22 (9-52) U/L Alkaline Phosphatase 68 (38-126) U/L Total Protein 7.4 (6.3-8.2) g/dL Albumin 3.9 (3.5-5.0) g/dL Lipase 102 (23-300) U/L Disposition Clinical Impression: Diarrhea, Abdominal pain Disposition: HOME SELF-CARE Condition: Stable Instructions: Abdominal Pain (ED) Additional Instructions: Contact her home health care physician tomorrow for reevaluation. Be sure to drink plenty of fluids. He can take Imodium to slow the diarrhea. Follow up with her surgeon as scheduled on Monday. Return to the emergency department for any worsening or change in her symptoms. Prescriptions: HYDROcodone/APAP 5-325MG [[place] 5-325] 1 tab PO Q6HR PRN 3 Days #8 tab PRN Reason: Pain Loperamide [Imodium] 2 mg PO QID #30 capsule Is patient prescribed a controlled substance at d/c from ED?: No Referrals: Miki Stewart MD [Primary Care Provider] - 1-2 days
[2018-04-05] MEDS ORDERED: SODIUM CHLORIDE 0.9% 1,000 ML IV ONE (21:33)
[2018-04-05] MEDS ORDERED: ONDANSETRON 4 MG/2 ML VIAL IVP STA (21:33)
[2018-04-05 22:07] LABS: Basophils % (A) 0 %; Eosinophils # (A) 0.3 k/uL (0-0.7); Eosinophils % (A) 3 %; HCT 31.4 % (34.0-46.0); Lymphocytes # (A) 2.7 k/uL (1.0-4.8); Lymphocytes % (A) 27 %; MCH 26.7 pg (25.0-35.0); MCHC 31.6 g/dL (31.0-37.0); MCV 84.4 fL (80.0-100.0); Mean Platelet Volume 6.6; Monocytes # (A) 0.6 k/uL (0-1.0); Monocytes % (A) 6 %; Neutrophils # (A) 6.4 k/uL (1.3-7.7); Neutrophils % (A) 63 %; Platelet Count 355 k/uL (150-450); RBC 3.73 m/uL (3.80-5.40); RDW 15.5 % (11.5-15.5); WBC 10.1 k/uL (3.8-10.6)
[2018-04-05 22:13] LABS: ALT 22 U/L (9-52); AST 14 U/L (14-36); Albumin 3.9 g/dL (3.5-5.0); Alkaline Phosphatase 68 U/L (38-126); Anion Gap 7 mmol/L; Blood Urea Nitrogen 12 mg/dL (7-17); Calcium 9.3 mg/dL (8.4-10.2); Carbon Dioxide 26 mmol/L (22-30); Chloride 106 mmol/L (98-107); Glucose 100 mg/dL (74-99); Lipase 102 U/L (23-300); Potassium 4.4 mmol/L (3.5-5.1); Sodium 139 mmol/L (137-145); Total Bilirubin 0.3 mg/dL (0.2-1.3); Total Protein 7.4 g/dL (6.3-8.2)
--- NOTE | 2018-04-05 22:52 | US ---
EXAMINATION TYPE: US gallbladder DATE OF EXAM: 04/05/2018 COMPARISON: NONE CLINICAL HISTORY: Pain. Pain. Exam limitations due to large body habitus. EXAM MEASUREMENTS: Liver Length: 21.53 cm Gallbladder Wall: 0.3 cm CBD: 0.5 cm Right Kidney: 10.6 x 4.6 x 3.5 cm Pancreas: Obscured by bowel gas Liver: Increased attenuation Gallbladder: No stones seen Evidence for sonographic Valenzuela's sign: No CBD: wnl Right Kidney: wnl IMPRESSION: No gallstones or dilated ducts.
[2018-04-05] MEDS ORDERED: MORPHINE SULFATE 4 MG/ML SYRINGE IVP STA (23:05)
[2018-04-06 02:21] VITALS: BP 164/102; PULSE 79; RESP 18; TEMP 98.1
== END 2018-04-06 02:31 | disposition home or self-care (01) ==
LOC: EC 21:02
DX: R10.11 Right upper quadrant pain (principal); R10.12 Left upper quadrant pain; R19.7 Diarrhea, unspecified; I10 Essential (primary) hypertension; I25.2 Old myocardial infarction; M19.90 Unspecified osteoarthritis, unspecified site; M06.9 Rheumatoid arthritis, unspecified; E03.9 Hypothyroidism, unspecified; M10.9 Gout, unspecified; Z87.19 Personal history of other diseases of the digestive system; Z79.899 Other long term (current) drug therapy; Z88.4 Allergy status to anesthetic agent; Z88.8 Allergy status to other drugs, medicaments and biological substances
CPT/HCPCS: 36415; 80053; 83690; 85025; 76705; 99284; 96374; 96375; 96361 ×4; J2270; J2405

== ENCOUNTER 2018-04-10 15:18 | Inpatient (IN) | payer MEDICARE, OTHER ==
[2018-04-10] MEDS ORDERED: SODIUM CHLORIDE 0.9% 1,000 ML IV STA (15:36)
[2018-04-10] MEDS ORDERED: HYDROmorphone 1 MG/ML 1 ML SYRINGE IVP STA (15:51)
[2018-04-10] MEDS ORDERED: ONDANSETRON 4 MG/2 ML VIAL IVP STA (15:51)
[2018-04-10] MEDS ORDERED: DIPHENOX-ATROP 2.5-0.025 MG 1 EACH TAB PO STA (15:52)
--- NOTE | 2018-04-10 15:53 | ED ---
Abdominal Pain HPI - General Source: patient, RN notes reviewed Mode of arrival: ambulatory Limitations: no limitations <Ji Carlin - Last Filed: 04/10/18 15:36> <Jannette Lemos - Last Filed: 04/29/18 01:39> - General Stated Complaint: abdominal pain/diarrhea Time Seen by Provider: 04/10/18 15:36 - History of Present Illness Initial Comments: 47-year-old female presents emergency Department chief complaint of abdominal pain this is a chronic issue with diarrhea. Patient had several visits to the hospital and to her surgeon Dr. Zavaleta. Patient states that she was told today in his office that was not her gallbladder that there is nothing he could do for her. Patient called EMS because of her diarrhea and her feeling that nobody is listening to her. Patient states that she feels a lump on the right side or abdomen is cannot locate this pain. Patient denies any hematuria, dysuria, fever, chills, nausea vomiting. She states she only has diarrhea and pain. (Ji Carlin) - Related Data Home Medications Medication Instructions Recorded Confirmed Ferrous Sulfate [Iron (65 MG 325 mg PO BID 08/28/14 04/26/18 Elemental)] Spironolactone 50 mg PO BID 08/10/16 04/26/18 Allopurinol [Zyloprim] 200 mg PO DAILY 04/24/17 04/26/18 Prazosin [Minipress] 1 mg PO DAILY 04/24/17 04/26/18 Folic Acid 1 mg PO DAILY 12/01/17 04/26/18 Metoprolol Tartrate [Lopressor] 50 mg PO BID 12/01/17 04/26/18 DULoxetine HCL [Cymbalta] 30 mg PO DAILY 04/05/18 04/26/18 Diazepam [Valium] 5 mg PO TID 04/05/18 04/26/18 Ergocalciferol (Vitamin D2) 50,000 unit PO MOTH 04/05/18 04/26/18 [Vitamin D2] Levothyroxine Sodium [Synthroid] 50 mcg PO DAILY 04/05/18 04/26/18 hydrALAZINE HCL [Apresoline] 10 mg PO TID PRN 04/06/18 04/26/18 metFORMIN HCL ER [Glucophage Xr] 1,000 mg PO HS 04/06/18 04/26/18 Diclofenac Sodium [Voltaren] 75 mg PO BID 04/10/18 04/26/18 HYDROcodone/APAP 10-325MG [[place] 1 tab PO QID PRN 04/10/18 04/26/18 10-325] Escitalopram [Lexapro] 20 mg PO DAILY 04/26/18 04/26/18 Previous Rx's Medication Instructions Recorded Gabapentin [Neurontin] 600 mg PO TID #90 cap 12/06/17 Allergies Allergy/AdvReac Type Severity Reaction Status Date / Time oxycodone HCl [From Percocet] Allergy Rash/Hives Verified 04/26/18 13:52 procaine HCl [From Novocain] Allergy facial Verified 04/26/18 13:52 swelling strawberry Allergy Rash/Hives Verified 04/26/18 13:52 Review of Systems ROS Other: All systems not noted in ROS Statement are negative. <Ji Carlin - Last Filed: 04/10/18 15:36> ROS Other: All systems not noted in ROS Statement are negative. <Jannette Lemos - Last Filed: 04/29/18 01:39> ROS Statement: Those systems with pertinent positive or pertinent negative responses have been documented in the HPI. Past Medical History Past Medical History: GERD/Reflux, GI Bleed, Hypertension, Myocardial Infarction (LA), Osteoarthritis (OA), Pulmonary Embolus (PE), Renal Disease, Rheumatoid Arthritis (RA), Syncope Additional Past Medical History / Comment(s): Obesity, numbness/tingling bilateral feet, chronic phil leg wound/cellulitis currently healed, previous rt leg ulcers now healed, lower leg edema, chronic low back pain with sciatica, tail bone fracture, migraines, pt states she had toxemia with 1st and had a LA, bilateral tinnitis occasionally, bronchitis, sinus problems, gout bilateral feet, carpal tunnel syndrome bilateral wrists, hypothyoid, HTN but only with anxiety, colitis, IBS, chron's, diverticular dx, occasional low blood sugar, nephrolithiasis-pt passed on her own, chronic anemia, lower GI bleed, UTIs."sickle cell" Last Myocardial Infarction Date:: 1989 History of Any Multi-Drug Resistant Organisms: None Reported Past Surgical History: Section, Tubal Ligation Additional Past Surgical History / Comment(s): colonoscopy, 4 c-sections Past Anesthesia/Blood Transfusion Reactions: No Reported Reaction Additional Past Anesthesia/Blood Transfusion Reaction / Comment(s): Pt has received blood in the past and had itching, has had another transfusion since with no reaction. Smoking Status: Never smoker - Past Family History Father History Unknown: Yes Additional Family Medical History / Comment(s): Pt was adopted and does not know parents/family medical hx. <Ji Carlin - Last Filed: 04/10/18 15:36> General Exam General appearance: alert, in no apparent distress Head exam: Present: atraumatic, normocephalic, normal inspection Respiratory exam: Present: normal lung sounds bilaterally. Absent: respiratory distress, wheezes, rales, rhonchi, stridor Cardiovascular Exam: Present: regular rate, normal rhythm, normal heart sounds. Absent: systolic murmur, diastolic murmur, rubs, gallop, clicks GI/Abdominal exam: Present: soft, tenderness (Mild right-sided), normal bowel sounds. Absent: distended, guarding, rebound, rigid Neurological exam: Present: alert, oriented X3, CN II-XII intact Skin exam: Present: warm, dry, intact, normal color. Absent: rash <Ji Carlin - Last Filed: 04/10/18 15:36> Vital Signs 04/10/18 04/10/18 15:38 22:36 Temperature 97.5 F L 97.3 F L Pulse Rate 77 77 Respiratory 20 18 Rate Blood Pressure 127/87 122/83 O2 Sat by Pulse 97 Oximetry Medical Decision Making <Ji Carlin - Last Filed: 04/10/18 15:36> - Lab Data Result diagrams: 04/11/18 09:31 04/11/18 09:31 <Jannette Lemos - Last Filed: 04/29/18 01:39> - Medical Decision Making Patient care was signed out to me by Efren EMMANUEL. Patient presented from a surgeon's office for reevaluation of abdominal pain diarrhea and concern for dehydration. On labs patient was noted to have a creatinine of 1.29 with a baseline creatinine of 0.6-0.8. Urinalysis revealed no signs of infection but greater than 50 hyaline casts. I'm concerned for the patient's level dehydration we'll plan to place in observation unit for fluid rehydration. In addition the patient has been suffering with this for a period of time, she has had multiple ER visits, patient is minimally ambulatory due to osteoarthritis and morbid obesity. I do feel the patient may warrant long-term placement in a halfway facility to help her with activities of daily living. (Jannette Lemos) - Lab Data Lab Results 04/10/18 04/10/18 04/10/18 Range/Units 16:35 16:35 20:30 WBC 11.4 H (3.8-10.6) k/uL RBC 3.81 (3.80-5.40) m/uL Hgb 10.0 L (11.4-16.0) gm/dL Hct 32.2 L (34.0-46.0) % MCV 84.5 (80.0-100.0) fL MCH 26.3 (25.0-35.0) pg MCHC 31.1 (31.0-37.0) g/dL RDW 15.5 (11.5-15.5) % Plt Count 411 (150-450) k/uL Neutrophils % 63 % Lymphocytes % 28 % Monocytes % 5 % Eosinophils % 3 % Basophils % 0 % Neutrophils # 7.1 (1.3-7.7) k/uL Lymphocytes # 3.2 (1.0-4.8) k/uL Monocytes # 0.6 (0-1.0) k/uL Eosinophils # 0.3 (0-0.7) k/uL Basophils # 0.0 (0-0.2) k/uL Hypochromasia Slight Sodium 141 (137-145) mmol/L Potassium 3.6 (3.5-5.1) mmol/L Chloride 103 (98-107) mmol/L Carbon Dioxide 30 (22-30) mmol/L Anion Gap 8 mmol/L BUN 11 (7-17) mg/dL Creatinine 1.29 H (0.52-1.04) mg/dL Est GFR (CKD-EPI)AfAm 58 (>60 ml/min/1.73 sqM) Est GFR (CKD-EPI)NonAf 50 (>60 ml/min/1.73 sqM) Glucose 123 H (74-99) mg/dL POC Glucose (mg/dL) (75-99) mg/dL POC Glu Licensed Psychologist Director ID Calcium 9.2 (8.4-10.2) mg/dL Total Bilirubin 0.4 (0.2-1.3) mg/dL AST 13 L (14-36) U/L ALT 16 (9-52) U/L Alkaline Phosphatase 69 (38-126) U/L Total Protein 7.3 (6.3-8.2) g/dL Albumin 3.8 (3.5-5.0) g/dL Amylase 44 (30-110) U/L Lipase 93 (23-300) U/L Urine Color Yellow Urine Appearance Cloudy H (Clear) Urine pH 5.0 (5.0-8.0) Ur Specific [place] 1.021 (1.001-1.035) Urine Protein 1+ H (Negative) Urine Glucose (UA) Negative (Negative) Urine Ketones Negative (Negative) Urine Blood Negative (Negative) Urine Nitrite Negative (Negative) Urine Bilirubin Negative (Negative) Urine Urobilinogen <2.0 (<2.0) mg/dL Ur Leukocyte Esterase Negative (Negative) Urine RBC 1 (0-5) /hpf Urine WBC 3 (0-5) /hpf Ur Squamous Epith Cells 4 (0-4) /hpf Urine Bacteria Rare H (None) /hpf Hyaline Casts 54 H (0-2) /lpf Urine Mucus Occasional H (None) /hpf 04/11/18 04/11/18 04/11/18 Range/Units 09:31 09:31 10:45 WBC 10.5 (3.8-10.6) k/uL RBC 3.43 L (3.80-5.40) m/uL Hgb 9.2 L (11.4-16.0) gm/dL Hct 29.1 L (34.0-46.0) % MCV 84.7 (80.0-100.0) fL MCH 26.7 (25.0-35.0) pg MCHC 31.5 (31.0-37.0) g/dL RDW 15.4 (11.5-15.5) % Plt Count 387 (150-450) k/uL Neutrophils % 64 % Lymphocytes % 28 % Monocytes % 5 % Eosinophils % 3 % Basophils % 0 % Neutrophils # 6.7 (1.3-7.7) k/uL Lymphocytes # 3.0 (1.0-4.8) k/uL Monocytes # 0.5 (0-1.0) k/uL Eosinophils # 0.3 (0-0.7) k/uL Basophils # 0.0 (0-0.2) k/uL Hypochromasia Slight Sodium 141 (137-145) mmol/L Potassium 3.7 (3.5-5.1) mmol/L Chloride 106 (98-107) mmol/L Carbon Dioxide 29 (22-30) mmol/L Anion Gap 6 mmol/L BUN 11 (7-17) mg/dL Creatinine 0.85 (0.52-1.04) mg/dL Est GFR (CKD-EPI)AfAm >90 (>60 ml/min/1.73 sqM) Est GFR (CKD-EPI)NonAf 83 (>60 ml/min/1.73 sqM) Glucose 118 H (74-99) mg/dL POC Glucose (mg/dL) 128 H (75-99) mg/dL POC Glu Licensed Psychologist Director ID Olman Velazquez Calcium 8.4 (8.4-10.2) mg/dL Total Bilirubin 0.4 (0.2-1.3) mg/dL AST 15 (14-36) U/L ALT 16 (9-52) U/L Alkaline Phosphatase 63 (38-126) U/L Total Protein 6.2 L (6.3-8.2) g/dL Albumin 3.1 L (3.5-5.0) g/dL Amylase (30-110) U/L Lipase (23-300) U/L Urine Color Urine Appearance (Clear) Urine pH (5.0-8.0) Ur Specific [place] (1.001-1.035) Urine Protein (Negative) Urine Glucose (UA) (Negative) Urine Ketones (Negative) Urine Blood (Negative) Urine Nitrite (Negative) Urine Bilirubin (Negative) Urine Urobilinogen (<2.0) mg/dL Ur Leukocyte Esterase (Negative) Urine RBC (0-5) /hpf Urine WBC (0-5) /hpf Ur Squamous Epith Cells (0-4) /hpf Urine Bacteria (None) /hpf Hyaline Casts (0-2) /lpf Urine Mucus (None) /hpf Disposition <Ji Carlin - Last Filed: 04/10/18 15:36> <Jannette Lemos - Last Filed: 04/29/18 01:39> Clinical Impression: BEKAH (acute kidney injury), Morbid obesity Disposition: ADMITTED IP TO THIS HOSP Condition: Stable
[2018-04-10 17:10] LABS: Basophils % (A) 0 %; Eosinophils # (A) 0.3 k/uL (0-0.7); Eosinophils % (A) 3 %; HCT 32.2 % (34.0-46.0); Hypochromasia Slight; Lymphocytes # (A) 3.2 k/uL (1.0-4.8); Lymphocytes % (A) 28 %; MCH 26.3 pg (25.0-35.0); MCHC 31.1 g/dL (31.0-37.0); MCV 84.5 fL (80.0-100.0); Mean Platelet Volume 6.7; Monocytes # (A) 0.6 k/uL (0-1.0); Monocytes % (A) 5 %; Neutrophils # (A) 7.1 k/uL (1.3-7.7); Neutrophils % (A) 63 %; Platelet Count 411 k/uL (150-450); RBC 3.81 m/uL (3.80-5.40); RDW 15.5 % (11.5-15.5); WBC 11.4 k/uL (3.8-10.6)
[2018-04-10] MEDS ORDERED: DIPHENOX-ATROP STARTER PACK 8 TAB BTL PO STA (17:11)
[2018-04-10 17:21] LABS: Albumin 3.8 g/dL (3.5-5.0); Calcium 9.2 mg/dL (8.4-10.2); Potassium 3.6 mmol/L (3.5-5.1); Total Bilirubin 0.4 mg/dL (0.2-1.3); Total Protein 7.3 g/dL (6.3-8.2)
[2018-04-10 21:16] LABS: Appearance,Urine Cloudy (Clear); Bacteria,Urine Rare /hpf; Bilirubin,Urine Negative (Negative); Blood,Urine Negative (Negative); Color,Urine Yellow; Glucose,Urine (UA) Negative (Negative); Hyaline Casts,Urine 54 /lpf (0-2); Ketones,Urine Negative (Negative); Leukocyte Esterase,Urine Negative (Negative); Mucus,Urine Occasional /hpf; Nitrite,Urine Negative (Negative); Protein,Urine 1+ (Negative); RBC,Urine 1 /hpf (0-5); Specific Gravity,Urine 1.021 (1.001-1.035); Squamous Epithelial Cell,Urine 4 /hpf (0-4); Urobilinogen,Urine <2.0 mg/dL (<2.0); WBC,Urine 3 /hpf (0-5)
[2018-04-10] MEDS ORDERED: SODIUM CHLORIDE 0.9% 1,000 ML IV ONE (21:44)
[2018-04-10] MEDS ORDERED: NALOXONE 0.4 MG/ML 1 ML VIAL IV PRN (21:46)
[2018-04-10] MEDS ORDERED: ONDANSETRON 4 MG/2 ML VIAL IVP PRN (21:46)
[2018-04-11 00:31] VITALS: BMI 79.0
[2018-04-11] MEDS: GABAPENTIN 300 MG CAP PO SCH ×5 (00:39→21:11)
[2018-04-11] MEDS: HYDROcodone/APAP 10-325MG 1 EACH TAB PO PRN ×3 (00:40→22:39)
[2018-04-11] MEDS: hydrALAZINE HCL 10 MG TAB PO SCH ×3 (00:40→15:50)
[2018-04-11] MEDS: HEPARIN SODIUM,PORCINE 5,000 UNIT/ML 1 ML VIAL SQ SCH ×3 (00:55→15:49)
[2018-04-11] MEDS: SODIUM CHLORIDE 0.9% 1,000 ML IV SCH ×4 (00:56→22:40)
[2018-04-11] MEDS: LEVOTHYROXINE 50 MCG TAB PO SCH (05:36)
[2018-04-11] MEDS: METOPROLOL TARTRATE 50 MG TAB PO SCH ×2 (08:20→21:10)
[2018-04-11] MEDS: SPIRONOLACTONE 25 MG TAB PO SCH ×2 (08:20→21:10)
[2018-04-11 10:36] LABS: Basophils % (A) 0 %; Eosinophils # (A) 0.3 k/uL (0-0.7); Eosinophils % (A) 3 %; HCT 29.1 % (34.0-46.0); HGB 9.2 gm/dL (11.4-16.0); Hypochromasia Slight; Lymphocytes % (A) 28 %; MCH 26.7 pg (25.0-35.0); MCHC 31.5 g/dL (31.0-37.0); MCV 84.7 fL (80.0-100.0); Mean Platelet Volume 6.7; Monocytes # (A) 0.5 k/uL (0-1.0); Monocytes % (A) 5 %; Neutrophils # (A) 6.7 k/uL (1.3-7.7); Neutrophils % (A) 64 %; Platelet Count 387 k/uL (150-450); RBC 3.43 m/uL (3.80-5.40); RDW 15.4 % (11.5-15.5); WBC 10.5 k/uL (3.8-10.6)
[2018-04-11 10:55] LABS: ALT 16 U/L (9-52); AST 15 U/L (14-36); Albumin 3.1 g/dL (3.5-5.0); Alkaline Phosphatase 63 U/L (38-126); Anion Gap 6 mmol/L; Blood Urea Nitrogen 11 mg/dL (7-17); Calcium 8.4 mg/dL (8.4-10.2); Carbon Dioxide 29 mmol/L (22-30); Chloride 106 mmol/L (98-107); Glucose 118 mg/dL (74-99); Potassium 3.7 mmol/L (3.5-5.1); Sodium 141 mmol/L (137-145); Total Bilirubin 0.4 mg/dL (0.2-1.3); Total Protein 6.2 g/dL (6.3-8.2)
[2018-04-11 11:02] LABS: Glucose,Whole Blood 128 mg/dL (75-99)
--- NOTE | 2018-04-11 12:51 | P.CN ---
Psychiatric Consult - . Consult date: 04/11/18 Consult:: 04/11/18 09:08 Suicidal ideation which is not mentioned anywhere in the chart except for nursing 04/11/18 12:46 Assessment and Plan Assessment: General Source: patient, RN notes reviewed Mode of arrival: ambulatory Limitations: no limitations - General Stated Complaint: abdominal pain/diarrhea Time Seen by Director Of Real Estate:04/11/2018 - History of Present Illness Initial Comments: 47-year-old female presents emergency Department chief complaint of abdominal pain this is a chronic issue with diarrhea. Patient had several visits to the hospital and to her surgeon Dr. Zavaleta. Patient states that she was told today in his office that was not her gallbladder that there is nothing he could do for her. Patient called EMS because of her diarrhea and her feeling that nobody is listening to her. Patient states that she feels a lump on the right side or abdomen is cannot locate this pain. Patient denies any hematuria, dysuria, fever, chills, nausea vomiting. She states she only has diarrhea and pain. Home Medications Medication Instructions Recorded Confirmed Ferrous Sulfate [Iron (65 MG 325 mg PO BID 08/28/14 04/10/18 Elemental)] Spironolactone 50 mg PO BID 08/10/16 04/10/18 Allopurinol [Zyloprim] 200 mg PO DAILY 04/24/17 04/10/18 Escitalopram [Lexapro] 20 mg PO DAILY 04/24/17 04/10/18 Prazosin [Minipress] 1 mg PO HS 04/24/17 04/10/18 Folic Acid 1 mg PO DAILY 12/01/17 04/10/18 Metoprolol Tartrate [Lopressor] 50 mg PO BID 12/01/17 04/10/18 DULoxetine HCL [Cymbalta] 30 mg PO DAILY 04/05/18 04/10/18 Diazepam [Valium] 5 mg PO TID PRN 04/05/18 04/10/18 Ergocalciferol (Vitamin D2) 50,000 unit PO Q14D 04/05/18 04/10/18 [Vitamin D2] Levothyroxine Sodium [Synthroid] 50 mcg PO DAILY 04/05/18 04/10/18 hydrALAZINE HCL [Apresoline] 10 mg PO TID 04/06/18 04/10/18 metFORMIN HCL ER [Glucophage Xr] 1,000 mg PO HS 04/06/18 04/10/18 Diclofenac Sodium [Voltaren] 75 mg PO BID 04/10/18 04/10/18 HYDROcodone/APAP 10-325MG [[place] 1 tab PO QID PRN 04/10/18 04/10/18 10-325] Previous Rx's Medication Instructions Recorded Gabapentin [Neurontin] 600 mg PO TID #90 cap 12/06/17 Allergies Allergy/AdvReac Type Severity Reaction Status Date / Time oxycodone HCl [From Percocet] Allergy Rash/Hives Verified 04/10/18 17:11 procaine HCl [From Novocain] Allergy facial Verified 04/10/18 17:11 swelling strawberry Allergy Rash/Hives Verified 04/10/18 17:11 Past Medical History Past Medical History: GERD/Reflux, GI Bleed, Hypertension, Myocardial Infarction (LA), Osteoarthritis (OA), Pulmonary Embolus (PE), Renal Disease, Rheumatoid Arthritis (RA), Syncope Additional Past Medical History / Comment(s): Obesity, numbness/tingling bilateral feet, chronic phil leg wound/cellulitis currently healed, previous rt leg ulcers now healed, lower leg edema, chronic low back pain with sciatica, tail bone fracture, migraines, pt states she had toxemia with 1st and had a LA, bilateral tinnitis occasionally, bronchitis, sinus problems, gout bilateral feet, carpal tunnel syndrome bilateral wrists, hypothyoid, HTN but only with anxiety, colitis, IBS, chron's, diverticular dx, occasional low blood sugar, nephrolithiasis-pt passed on her own, chronic anemia, lower GI bleed, UTIs."sickle cell" Last Myocardial Infarction Date:: 1989 History of Any Multi-Drug Resistant Organisms: None Reported Past Surgical History: Section, Tubal Ligation Additional Past Surgical History / Comment(s): colonoscopy, 4 c-sections Past Anesthesia/Blood Transfusion Reactions: No Reported Reaction Additional Past Anesthesia/Blood Transfusion Reaction / Comment(s): Pt has received blood in the past and had itching, has had another transfusion since with no reaction. Smoking Status: Never smoker - Past Family History Father History Unknown: Yes Additional Family Medical History / Comment(s): Pt was adopted and does not know parents/family medical hx. Mental Status Examination - this is a 47-year-old Afro-[place] female who looks older than age and occupies most of the bed. She certainly is hopeless helpless and overwhelmed and feels that her life is over with since she cannot ambulate any longer. General Appearance: [disheveled, casual, bizarre, appears older than stated age Speech/Language: [slow, slurred, rambled, mumbling, monotone, soft Attitude/Behavior: [guarded, irritable, withdrawn, indifferent] Mood: [depressed, fearful, hopelessness] Affect: [flat, blunted constricted] Orientation: [Not oriented time, but is to person place and situation Thought Content: [wnl Risk Factors: [She remains suicidal (ideations, plan) Perception: [wnl Thought Processes: [concrete, circumstantial, tangential, ] Concentration/Attention Span: [ impaired] [Per observation and interview with the patient] Recent Memory: [Impaired] [1 out of 3 in 3 minutes] Remote Memory: [ impaired] [past events, as related history] Intelligence: [below average] [based on history, based on vocabulary, syntax, grammar, and content] Judgement: [poor] [per patient's behavior/history of present illness] Insight: [ poor] [understanding severity of illness/history of present illness] Psychiatric clinical impression: This 47-year-old female is considered clinically depressed and should be treated with an antidepressant. Majority of her depression comes from her lack of mobility and lack of understanding how she went in up in a immobile situation such as not adhering to diet and exercise. Psychiatric recommendations: Since this woman does have multiple organ problems the best antidepressant for her would be venlafaxine 37.5 mg XR by mouth daily at bedtime and titrate every 3 days to 225 mg venlafaxine XL at bedtime. At the present time she does need a sitter at least for the next 24 hours. Thank you for this consult Jaswant Patel D.O. PhD (1) Major depressive disorder, recurrent severe without psychotic features Current Visit: No Status: Acute Priority: High Code(s): F33.2 - MAJOR DEPRESSV DISORDER, RECURRENT SEVERE W/O PSYCH FEATURES SNOMED Code(s): 60080859 Time with Patient: Less than 30
[2018-04-11] MEDS: PRAZOSIN 1 MG CAP PO SCH (21:10)
[2018-04-12] MEDS: HEPARIN SODIUM,PORCINE 5,000 UNIT/ML 1 ML VIAL SQ SCH ×4 (01:33→23:50)
[2018-04-12] MEDS: hydrALAZINE HCL 10 MG TAB PO SCH ×4 (01:55→23:50)
[2018-04-12] MEDS: LEVOTHYROXINE 50 MCG TAB PO SCH (05:32)
[2018-04-12] MEDS: SODIUM CHLORIDE 0.9% 1,000 ML IV SCH ×2 (05:53→16:00)
[2018-04-12] MEDS: METOPROLOL TARTRATE 50 MG TAB PO SCH ×2 (07:53→21:25)
[2018-04-12] MEDS: SPIRONOLACTONE 25 MG TAB PO SCH ×2 (07:53→21:25)
[2018-04-12] MEDS: GABAPENTIN 300 MG CAP PO SCH ×3 (07:54→23:50)
[2018-04-12] MEDS: HYDROcodone/APAP 10-325MG 1 EACH TAB PO PRN ×2 (07:56→17:09)
[2018-04-12] MEDS: PRAZOSIN 1 MG CAP PO SCH (21:26)
--- NOTE | 2018-04-12 23:18 | HP ---
HISTORY AND PHYSICAL SUBJECTIVE: This is a 47-year-old -Turkish female who is on suicidal watch. Seen by psychiatrist, who recommends antidepressants, sitter for 24 hours. She also came in with abdominal pain and diarrhea. A surgical consult is pending. She has a past medical history of cholecystitis in the past. She states this abdominal pain is worse a half hour after eating. Offered her a transfer to [facility] if the surgeon does not want to operate in this town. HOME MEDICATIONS: See Home Medicines. ALLERGIES: PERCOCET. PAST MEDICAL HISTORY: 1. Hypertension. 2. Myocardial infarction. 3. GERD. 4. GI bleed. 5. Osteoarthritis. 6. Pulmonary embolism. 7. Renal disease. 8. Rheumatoid arthritis. 9. Bilateral tinnitus. 10.Migraines. 11.Nephrolithiasis. 12.Chronic anemia. SURGICAL HISTORY: 1. . 2. Tubal ligation. 3. Colonoscopies. FAMILY HISTORY: Father unknown. PHYSICAL EXAMINATION: Vital signs are stable. Afebrile. GI: Soft. Tenderness to palpation, right upper quadrant. CARDIOVASCULAR: S1, S2. LUNGS: Clear to auscultation. HEMATOLOGY: Negative Homans. VASCULAR: Normal dorsalis pedis, posterior tibial, radial pulse. Labs are reviewed. Vital signs are reviewed. ASSESSMENT: 1. Diffuse abdominal pain. Waiting for surgical recommendations. Possibly cholecystectomy will be needed. 2. Depression with suicidal ideation. See psych consult. Possible transfer to [facility] if surgery is not going to be done per Dr. Zavaleta, who is on consult. MMODL / IJN: [id number] /
[2018-04-13] MEDS: HYDROcodone/APAP 10-325MG 1 EACH TAB PO PRN ×4 (02:14→21:22)
[2018-04-13] MEDS: SODIUM CHLORIDE 0.9% 1,000 ML IV SCH ×2 (05:55→22:41)
[2018-04-13] MEDS: LEVOTHYROXINE 50 MCG TAB PO SCH (05:56)
[2018-04-13] MEDS: METOPROLOL TARTRATE 50 MG TAB PO SCH ×2 (08:37→21:24)
[2018-04-13] MEDS: hydrALAZINE HCL 10 MG TAB PO SCH ×3 (08:37→21:24)
[2018-04-13] MEDS: SPIRONOLACTONE 25 MG TAB PO SCH ×2 (08:38→21:25)
[2018-04-13] MEDS: HEPARIN SODIUM,PORCINE 5,000 UNIT/ML 1 ML VIAL SQ SCH ×2 (08:38→17:19)
[2018-04-13] MEDS: DIAZEPAM 5 MG TAB PO PRN (08:49)
--- NOTE | 2018-04-13 11:10 | P.GSCN ---
History of Present Illness Consult date: 04/13/18 Reason for Consult: Abdominal pain History of present illness: 47-year-old female being seen at the request the attending for an evaluation for abdominal pain. Patient was at Dr. corbin office yesterday to be evaluated for abdominal discomfort. Patient states she was told there was nothing surgical that needs to be done at this time. Patient was seen in surgical consultation just recently in March 05. HIDA scan showed at that time diminished ejection fraction 26% consistent with chronic biliary dyskinesis. At that time there was no evidence of acute cholecystitis. Patient was noted to have intermittent vague abdominal pain at that admission. Given the patient's underlying comorbidities with super morbid obesity BMI 74 with limited mobility patient at that time were recommending observing with conservative treatment no surgical intervention planned additionally patient was seen by Dr. Suarez on March 02 for vague abdominal pain. At that time CAT scan of the abdomen pelvis was obtained demonstrating questionable hydropic gallbladder. No evidence of bowel obstruction no evidence of colitis. At that time Dr. Suarez indicated no surgical intervention for gallbladder continue with conservative management. Patient states she has limited mobility mobility has not walked for at least 10 months due to bilateral knee pain. Patient states she makes all her doctors appointments by EMS states it's not able to walk and has not walked since April 2017 currently ultrasound the abdomen is pending Currently a sitter is at the bedside for expressed suicide ideation psych eval noted patient states she feels depressed and feels like she needs her gallbladder taken out Patient has difficulty articulating where the pain is. Patient states the pain starts on the left breast radiates across the abdomen then has pain in the right lower abdomen pain is not constant. States has had this pain for some time unsure of how long reports no nausea vomiting no unintentional weight loss reports having had loose stools reports having a lump palpable right lower abdomen not able to palpate a lump Review of Systems Essentially unremarkable except as mentioned in the present illness Past Medical History Past Medical History: GERD/Reflux, GI Bleed, Hypertension, Myocardial Infarction (ME), Osteoarthritis (OA), Pulmonary Embolus (PE), Renal Disease, Rheumatoid Arthritis (RA), Syncope Additional Past Medical History / Comment(s): Obesity, numbness/tingling bilateral feet, chronic phil leg wound/cellulitis currently healed, previous rt leg ulcers now healed, lower leg edema, chronic low back pain with sciatica, tail bone fracture, migraines, pt states she had toxemia with 1st and had a ME, bilateral tinnitis occasionally, bronchitis, sinus problems, gout bilateral feet, carpal tunnel syndrome bilateral wrists, hypothyoid, HTN but only with anxiety, colitis, IBS, chron's, diverticular dx, occasional low blood sugar, nephrolithiasis-pt passed on her own, chronic anemia, lower GI bleed, UTIs."sickle cell" Last Myocardial Infarction Date:: 1989 History of Any Multi-Drug Resistant Organisms: None Reported Past Surgical History: Section, Tubal Ligation Additional Past Surgical History / Comment(s): colonoscopy, 4 c-sections Past Anesthesia/Blood Transfusion Reactions: No Reported Reaction Additional Past Anesthesia/Blood Transfusion Reaction / Comm: Pt has received blood in the past and had itching, has had another transfusion since with no reaction. Past Psychological History: Anxiety, Depression Additional Psychological History / Comment(s): She has had several suicide attempts in the past .pt stated she lives with her daughter, pt stated has bsc and 2 walkers and a medical bed. pt is vague with response as to what she is able to do activity pritchard.first she said bedrest then she stated she has a bsc she uses. Smoking Status: Never smoker Past Alcohol Use History: None Reported Past Drug Use History: None Reported - Past Family History Father History Unknown: Yes Additional Family Medical History / Comment(s): Pt was adopted and does not know parents/family medical hx. Medications and Allergies Home Medications Medication Instructions Recorded Confirmed Type Ferrous Sulfate [Iron (65 MG 325 mg PO BID 08/28/14 04/10/18 History Elemental)] Spironolactone 50 mg PO BID 08/10/16 04/10/18 History Allopurinol [Zyloprim] 200 mg PO DAILY 04/24/17 04/10/18 History Escitalopram [Lexapro] 20 mg PO DAILY 04/24/17 04/10/18 History Prazosin [Minipress] 1 mg PO HS 04/24/17 04/10/18 History Folic Acid 1 mg PO DAILY 12/01/17 04/10/18 History Metoprolol Tartrate [Lopressor] 50 mg PO BID 12/01/17 04/10/18 History Gabapentin [Neurontin] 600 mg PO TID #90 cap 12/06/17 04/10/18 Rx DULoxetine HCL [Cymbalta] 30 mg PO DAILY 04/05/18 04/10/18 History Diazepam [Valium] 5 mg PO TID PRN 04/05/18 04/10/18 History Ergocalciferol (Vitamin D2) 50,000 unit PO Q14D 04/05/18 04/10/18 History [Vitamin D2] Levothyroxine Sodium [Synthroid] 50 mcg PO DAILY 04/05/18 04/10/18 History hydrALAZINE HCL [Apresoline] 10 mg PO TID 04/06/18 04/10/18 History metFORMIN HCL ER [Glucophage Xr] 1,000 mg PO HS 04/06/18 04/10/18 History Diclofenac Sodium [Voltaren] 75 mg PO BID 04/10/18 04/10/18 History HYDROcodone/APAP 10-325MG [[place] 1 tab PO QID PRN 04/10/18 04/10/18 History 10-325] Allergies Allergy/AdvReac Type Severity Reaction Status Date / Time oxycodone HCl [From Percocet] Allergy Rash/Hives Verified 04/10/18 17:11 procaine HCl [From Novocain] Allergy facial Verified 04/10/18 17:11 swelling strawberry Allergy Rash/Hives Verified 04/10/18 17:11 Surgical - Exam Vital Signs Temp Pulse Resp BP 97.5 F L 77 20 127/87 04/10/18 15:38 04/10/18 15:38 04/10/18 15:38 04/10/18 15:38 Physical exam GENERAL APPEARANCE: super morbid obesity BMI 74 resting comfortably in bed with a sitter at the bedside alert, oriented, in no acute distress. VITAL SIGNS: Reviewed HEENT: Head is normocephalic and atraumatic. Pupils are equal and reactive. The nares are patent. Oropharynx is clear without lesions. NECK: Supple without lymphadenopathy. Traches midline. HEART: S1, S2. Regular rate and rhythm. No murmur noted LUNGS: No crackles or wheezes are heard. Adequate air movement on room air ABDOMEN: Soft obese, mild tenderness right lower quadrant no palpable lump noted nondistended with good bowel sounds. No peritoneal signs. No palpable organomegaly or masses. EXTREMITIES: Chronic venous stasis to the bilateral lower extremities NEUROLOGICAL: No focal deficits. Strength and sensation are grossly intact. Results - Labs 04/11/18 09:31 04/11/18 09:31 Assessment and Plan Assessment: Impression Super morbid obesity BMI 74 Limited mobility wheelchair bedbound Present on admission vague abdominal pain HIDA scan done in February showed diminished ejection fraction 26% consistent with chronic biliary dyskinesis Prior gallbladder workup done on 03/05/2018 showed no evidence of acute cholecystitis Admission suicide ideation sitter at bedside Anxiety depressive disorder Plan Follow up on the pending ultrasound of the abdomen Further recommendations pending after dr corbin evaluates patient Pain control Continue sitter at the bedside per recommendations of psych service Home meds as appropriate DVT and GI prophylaxis Will follow with you Surgical consultation dictated for Dr. corbin The above impression and plan of care have been discussed and directed by signing physician. Jackie Mendez nurse practitioner acting as scribe for signing physician.
--- NOTE | 2018-04-13 12:27 | US ---
EXAMINATION TYPE: US abdomen complete DATE OF EXAM: 04/13/2018 COMPARISON: Previous ultrasound gallbladder 04/05/2018 CLINICAL HISTORY: abdominal pain. Abdominal pain for 8 weeks, nausea and diarrhea EXAM MEASUREMENTS: Liver Length: 21.1 cm Gallbladder Wall: 0.3 cm CBD: 0.3 cm Spleen: 9.1 cm Right Kidney: 10.7 x 4.4 x 5.1 cm Left Kidney: 11.3 x 5.4 x 5.4 cm Technical limitations due to patient's body habitus (5'5" and 445 pounds) Pancreas: Obscured by bowel gas Liver: attenuating and enlarged Gallbladder: no evidence of stones Evidence for sonographic Valenzuela's sign: yes CBD: appears wnl Spleen: appears wnl Right Kidney: no evidence of hydronephrosis Left Kidney: no evidence of hydronephrosis Upper IVC: wnl Abd Aorta: Obscured by overlying bowel gas There is no ascites. Exam is limited. Kidneys show normal cortical medullary differentiation. IMPRESSION: Hepatic steatosis is likely, there is hepatomegaly. Positive sonographic Valenzuela's sign.
[2018-04-13] MEDS: GABAPENTIN 300 MG CAP PO SCH ×3 (12:31→21:25)
[2018-04-13] MEDS: PRAZOSIN 1 MG CAP PO SCH (22:40)
[2018-04-13] MEDS: VENLAFAXINE HCL ER 37.5 MG CAP PO SCH (22:40)
[2018-04-14] MEDS: SODIUM CHLORIDE 0.9% 1,000 ML IV SCH ×4 (00:20→22:48)
[2018-04-14] MEDS: HEPARIN SODIUM,PORCINE 5,000 UNIT/ML 1 ML VIAL SQ SCH ×3 (00:52→16:54)
[2018-04-14] MEDS: HYDROcodone/APAP 10-325MG 1 EACH TAB PO PRN ×3 (04:58→20:47)
[2018-04-14] MEDS: LEVOTHYROXINE 50 MCG TAB PO SCH (06:20)
[2018-04-14] MEDS: KETOROLAC 30 MG/ML 1 ML VIAL IVP PRN ×2 (09:14→22:46)
[2018-04-14] MEDS: SPIRONOLACTONE 25 MG TAB PO SCH ×2 (09:17→20:48)
[2018-04-14] MEDS: GABAPENTIN 300 MG CAP PO SCH ×3 (09:17→22:46)
[2018-04-14] MEDS: hydrALAZINE HCL 10 MG TAB PO SCH ×3 (09:17→22:48)
[2018-04-14] MEDS: METOPROLOL TARTRATE 50 MG TAB PO SCH ×2 (09:18→20:47)
--- NOTE | 2018-04-14 09:42 | P.PN ---
Progress Note - Text Progress Note Date: 04/14/18 The patient is sitting in her bed eating pancake and sizes. She states that she has a headache and that her knees hurt. She is requesting Dilaudid. On exam her vital signs are stable. Her abdomen soft soft. There is no significant tenderness. I discussed with patient regarding her diarrhea. She states that her diarrhea has resolved. I was suggesting that she have a colonoscopy. Patient does not wish to have that performed this time. The patient appears to have pain seeking behavior. I do not think that her biliary dysfunction as a source of her significant abdominal pain. The patient' s BMI is 75. She is nonambulatory. I think she should have further workup at a tertiary care center.
--- NOTE | 2018-04-14 18:17 | DS ---
DISCHARGE SUMMARY DISCHARGE MEDICATIONS: 1. Ferrous sulfate 325 b.i.d. 2. Spironolactone 50 mg b.i.d. 3. Minipress 1 mg q.h.s. 4. Lexapro 20 mg daily. 5. Zyloprim 200 mg daily. 6. Metoprolol 50 mg b.i.d. 7. Folic acid 1 mg daily. 8. Neurontin 600 mg t.i.d. 9. Synthroid 50 mcg daily. 10.Valium 5 mg t.i.d. CONDITION: Stable. PROGNOSIS: Guarded. Ambulate as tolerated. DISCHARGE DIAGNOSES: 1. Acute abdominal pain. 2. Chronic cholecystitis. 3. Intermittent diarrhea. 4. Gout. 5. Depression. 6. Hypertension. 7. Morbid obesity. 8. Hypothyroidism. 9. Diabetes mellitus. CONDITION: Stable. PROGNOSIS: Very guarded. HOSPITAL COURSE OF EVENTS: This is an female, morbid obesity, admitted with recurrent abdominal pain, was seen multiple times by surgeon. Ultrasound of the abdomen is reviewed. Dr. Zavaleta recommends patient go down as she was eating a large meal and had no difficulties this morning. On discharge, colonoscopy and possible gallbladder can be done as an outpatient probably down at [facility]. She was told to go down to [facility] for admission due to her high risk due to her morbid obesity if symptoms of diarrhea or abdominal pain continue. She is cleared by surgery for discharge. MMHELENEL / DAVIDN: [id number] /
[2018-04-14] MEDS: VENLAFAXINE HCL ER 37.5 MG CAP PO SCH (22:46)
[2018-04-14] MEDS: PRAZOSIN 1 MG CAP PO SCH (22:46)
[2018-04-14] MEDS: DIAZEPAM 5 MG TAB PO PRN (22:46)
[2018-04-15] MEDS: HEPARIN SODIUM,PORCINE 5,000 UNIT/ML 1 ML VIAL SQ SCH ×4 (01:32→23:44)
[2018-04-15] MEDS: LEVOTHYROXINE 50 MCG TAB PO SCH (05:54)
[2018-04-15] MEDS: DIAZEPAM 5 MG TAB PO PRN ×2 (06:07→13:49)
[2018-04-15] MEDS: METOPROLOL TARTRATE 50 MG TAB PO SCH ×2 (09:50→21:59)
[2018-04-15] MEDS: GABAPENTIN 300 MG CAP PO SCH ×3 (09:50→23:44)
[2018-04-15] MEDS: SPIRONOLACTONE 25 MG TAB PO SCH ×2 (09:50→21:59)
[2018-04-15] MEDS: hydrALAZINE HCL 10 MG TAB PO SCH ×3 (09:50→23:44)
[2018-04-15] MEDS: HYDROcodone/APAP 10-325MG 1 EACH TAB PO PRN ×2 (09:51→19:45)
[2018-04-15] MEDS: SODIUM CHLORIDE 0.9% 1,000 ML IV SCH ×3 (12:16→22:55)
[2018-04-15] MEDS: PRAZOSIN 1 MG CAP PO SCH (21:59)
[2018-04-15] MEDS: VENLAFAXINE HCL ER 37.5 MG CAP PO SCH (21:59)
[2018-04-16] MEDS: SODIUM CHLORIDE 0.9% 1,000 ML IV SCH (05:15)
[2018-04-16] MEDS: LEVOTHYROXINE 50 MCG TAB PO SCH (05:33)
[2018-04-16 07:25] VITALS: RESP 16
[2018-04-16] MEDS: METOPROLOL TARTRATE 50 MG TAB PO SCH (07:28)
[2018-04-16] MEDS: SPIRONOLACTONE 25 MG TAB PO SCH (07:28)
[2018-04-16] MEDS: hydrALAZINE HCL 10 MG TAB PO SCH (07:28)
[2018-04-16] MEDS: HYDROcodone/APAP 10-325MG 1 EACH TAB PO PRN (07:29)
[2018-04-16] MEDS: HEPARIN SODIUM,PORCINE 5,000 UNIT/ML 1 ML VIAL SQ SCH (07:29)
[2018-04-16] MEDS: GABAPENTIN 300 MG CAP PO SCH (07:29)
[2018-04-16] MEDS ORDERED: HYDROcodone/APAP 5-325MG 1 EACH TAB PO PRN (07:39)
[2018-04-16 15:12] VITALS: BP 109/88; PULSE 84; TEMP 98.7
--- NOTE | 2018-04-18 11:52 | CDI ---
Last Revision, May 2017 Documentation Clarification Form Date: 04/18/18 From: Ellen Chou Phone: If you have a question regarding this query, please contact Francia Stallings at [phone] between 8am and 5pm. Admit Date: 04/14/2018 2:28:00 PM Patient Name: Shireen Cotton Visit Number: [id number] Discharge Date: 04/16/18 ATTENTION: The Clinical Documentation Specialists (CDI) and [facility] Coding Staff appreciate your assistance in clarifying documentation. Please respond to the clarification below the line at the bottom and electronically sign. The CDI & [facility] Coding staff will review the response and follow-up if needed. Please note: Queries are made part of the Legal Health Record. If you have any questions, please contact the author of this message via ITS. Fahad Meza MD BEKAH is documented as a diagnosis in the admit order. History/Risk Factors: Patient was also admitted for abdominal pain and diarrhea. Patient has a past medical history of renal disease and hypertension. Patients admit BUN/CR/GFR: 11/1./58 Patient's discharge BUN/CR/GFR: 11/0.85/>90 Urinalysis: Hyaline casts 54 Clinical Indicators: Elevated creatinine Treatment: IVF: Sodium chloride 1,000 mls @ 999 mls/hr then 1,000 mls @125 mls/hr In order to capture the severity of condition, please clarify if the condition signifies: Acute renal insufficiency Acute renal failure with acute tubular necrosis Acute renal failure due to prerenal azotemia Other, please specify Unable to determine See addendum to Dischrg Summary MTDD
--- NOTE | 2018-05-08 09:37 | DS ---
DISCHARGE SUMMARY Please add to the discharge summary: Acute renal failure due to prerenal azotemia. MMODL / IJN: [id number] /
== END 2018-04-16 16:20 | disposition home health service (06) | DRG 445 ==
LOC: EC 15:18 → 1SOBS 21:46 → 4SSUR 04-11 01:54 → OBSVTOIN 04-14 14:28 → 4SSUR 04-16 14:12
PROVIDERS: ADMIT Family Medicine; ATTEND Family Medicine
DX: K81.1 Chronic cholecystitis (principal); K50.90 Crohn's disease, unspecified, without complications; R45.851 Suicidal ideations; Z68.45 Body mass index [BMI] 70 or greater, adult; N17.9 Acute kidney failure, unspecified; F33.2 Major depressive disorder, recurrent severe without psychotic features; E66.01 Morbid (severe) obesity due to excess calories; D50.9 Iron deficiency anemia, unspecified; E03.9 Hypothyroidism, unspecified; E11.9 Type 2 diabetes mellitus without complications; E86.0 Dehydration; F41.9 Anxiety disorder, unspecified; I10 Essential (primary) hypertension; I25.2 Old myocardial infarction; K21.9 Gastro-esophageal reflux disease without esophagitis; M06.9 Rheumatoid arthritis, unspecified; M10.9 Gout, unspecified; M19.90 Unspecified osteoarthritis, unspecified site; G43.909 Migraine, unspecified, not intractable, without status migrainosus; G56.03 Carpal tunnel syndrome, bilateral upper limbs; G89.29 Other chronic pain; H93.13 Tinnitus, bilateral; M25.561 Pain in right knee; M25.562 Pain in left knee; M54.40 Lumbago with sciatica, unspecified side; Z86.711 Personal history of pulmonary embolism; Z79.84 Long term (current) use of oral hypoglycemic drugs; Z79.899 Other long term (current) drug therapy; Z87.442 Personal history of urinary calculi; Z91.5 Personal history of self-harm; Z99.3 Dependence on wheelchair; Z74.01 Bed confinement status; Z88.5 Allergy status to narcotic agent; Z88.8 Allergy status to other drugs, medicaments and biological substances; Z91.018 Allergy to other foods; Z98.51 Tubal ligation status; Z79.890 Hormone replacement therapy
CPT/HCPCS: 36415; 76700; 80053; 81001; 82150; 83690; 85025; 93005; 96361; 96374; 96375; 99285

== ENCOUNTER 2018-04-26 13:22 | Emergency (ER) | payer MEDICARE, OTHER ==
[2018-04-26 13:42] VITALS: RESP 18
[2018-04-26] MEDS ORDERED: SODIUM CHLORIDE 0.9% 1,000 ML IV STA (13:45)
--- NOTE | 2018-04-26 14:46 | ED ---
General Adult HPI - General Chief complaint: Altered Mental Status Stated complaint: lethargy Time Seen by Provider: 04/26/18 13:24 Source: patient, EMS, RN notes reviewed Mode of arrival: EMS Limitations: physical limitation - History of Present Illness Initial comments: This a 47-year-old female presents emergency from via EMS chief complaint of fatigue. Patient is in the hospital at [facility] secondary to morbid obese state and generalized weakness. Patient states that she only gets up out of her bed to go to the bathroom. Patient states that she does know exercises at home. She denies any recent dietary changes. Patient was in the hospital admitted for several days and discharged home. Patient states she feels a same. She has chronic abdominal pain, chronic leg weakness. Patient denies chest pain, shortness breath, headache, dizziness. Patient states that she was told by a funeral home attendant at her rib pain was related to costochondritis. Patient has no dysuria no hematuria. Patient was sent to emergency from via visiting nurse because she was lethargic at home. - Related Data Home Medications Medication Instructions Recorded Confirmed Ferrous Sulfate [Iron (65 MG 325 mg PO BID 08/28/14 04/26/18 Elemental)] Spironolactone 50 mg PO BID 08/10/16 04/26/18 Allopurinol [Zyloprim] 200 mg PO DAILY 04/24/17 04/26/18 Prazosin [Minipress] 1 mg PO DAILY 04/24/17 04/26/18 Folic Acid 1 mg PO DAILY 12/01/17 04/26/18 Metoprolol Tartrate [Lopressor] 50 mg PO BID 12/01/17 04/26/18 DULoxetine HCL [Cymbalta] 30 mg PO DAILY 04/05/18 04/26/18 Diazepam [Valium] 5 mg PO TID 04/05/18 04/26/18 Ergocalciferol (Vitamin D2) 50,000 unit PO MOTH 04/05/18 04/26/18 [Vitamin D2] Levothyroxine Sodium [Synthroid] 50 mcg PO DAILY 04/05/18 04/26/18 hydrALAZINE HCL [Apresoline] 10 mg PO TID PRN 04/06/18 04/26/18 metFORMIN HCL ER [Glucophage Xr] 1,000 mg PO HS 04/06/18 04/26/18 Diclofenac Sodium [Voltaren] 75 mg PO BID 04/10/18 04/26/18 HYDROcodone/APAP 10-325MG [[place] 1 tab PO QID PRN 04/10/18 04/26/18 10-325] Escitalopram [Lexapro] 20 mg PO DAILY 04/26/18 04/26/18 Previous Rx's Medication Instructions Recorded Gabapentin [Neurontin] 600 mg PO TID #90 cap 12/06/17 Allergies Allergy/AdvReac Type Severity Reaction Status Date / Time oxycodone HCl [From Percocet] Allergy Rash/Hives Verified 04/26/18 13:52 procaine HCl [From Novocain] Allergy facial Verified 04/26/18 13:52 swelling strawberry Allergy Rash/Hives Verified 04/26/18 13:52 Review of Systems ROS Statement: Those systems with pertinent positive or pertinent negative responses have been documented in the HPI. ROS Other: All systems not noted in ROS Statement are negative. Past Medical History Past Medical History: GERD/Reflux, GI Bleed, Hypertension, Myocardial Infarction (AL), Osteoarthritis (OA), Pulmonary Embolus (PE), Renal Disease, Rheumatoid Arthritis (RA), Syncope Additional Past Medical History / Comment(s): Obesity, numbness/tingling bilateral feet, chronic phil leg wound/cellulitis currently healed, previous rt leg ulcers now healed, lower leg edema, chronic low back pain with sciatica, tail bone fracture, migraines, pt states she had toxemia with 1st and had a AL, bilateral tinnitis occasionally, bronchitis, sinus problems, gout bilateral feet, carpal tunnel syndrome bilateral wrists, hypothyoid, HTN but only with anxiety, colitis, IBS, chron's, diverticular dx, occasional low blood sugar, nephrolithiasis-pt passed on her own, chronic anemia, lower GI bleed, UTIs."sickle cell" Last Myocardial Infarction Date:: 1989 History of Any Multi-Drug Resistant Organisms: None Reported Past Surgical History: Section, Tubal Ligation Additional Past Surgical History / Comment(s): colonoscopy, 4 c-sections Past Anesthesia/Blood Transfusion Reactions: No Reported Reaction Additional Past Anesthesia/Blood Transfusion Reaction / Comment(s): Pt has received blood in the past and had itching, has had another transfusion since with no reaction. Past Psychological History: Anxiety, Depression Smoking Status: Never smoker Past Alcohol Use History: None Reported Past Drug Use History: None Reported - Past Family History Father History Unknown: Yes Additional Family Medical History / Comment(s): Pt was adopted and does not know parents/family medical hx. General Exam Limitations: physical limitation General appearance: alert, in no apparent distress, obese Head exam: Present: atraumatic, normocephalic, normal inspection Eye exam: Present: normal appearance, PERRL, EOMI. Absent: scleral icterus, conjunctival injection, periorbital swelling ENT exam: Present: normal exam, normal oropharynx, mucous membranes moist Neck exam: Present: normal inspection, full ROM. Absent: tenderness, meningismus, lymphadenopathy Respiratory exam: Present: normal lung sounds bilaterally. Absent: respiratory distress, wheezes, rales, rhonchi, stridor Cardiovascular Exam: Present: regular rate, normal rhythm, normal heart sounds. Absent: systolic murmur, diastolic murmur, rubs, gallop, clicks GI/Abdominal exam: Present: soft, normal bowel sounds. Absent: distended, tenderness, guarding, rebound, rigid Neurological exam: Present: alert, oriented X3, CN II-XII intact Skin exam: Present: warm, dry, intact, normal color. Absent: rash Course Vital Signs 04/26/18 04/26/18 13:36 16:27 Temperature 97.5 F L Pulse Rate 80 89 Respiratory 18 18 Rate Blood Pressure 150/100 164/101 O2 Sat by Pulse 100 99 Oximetry EKG Findings - EKG Comments: EKG Findings:: EKG performed at 13:35 normal sinus rhythm with a rate of 79 UT 154 QRS 92 QT/QTC 394/451 Medical Decision Making - Medical Decision Making 47-year-old female lisinopril overweight, decreased physical activity comes in for generalized fatigue. Patient has no acute labwork changes. Patient has chronic rib pain. Patient is had this evaluated by surgeons cardiology. Patient will be discharged home. Return parameters were discussed. - Lab Data Result diagrams: 04/26/18 15:45 04/26/18 15:45 Lab Results 04/26/18 04/26/18 04/26/18 Range/Units 15:45 15:45 15:45 WBC 9.8 (3.8-10.6) k/uL RBC 3.84 (3.80-5.40) m/uL Hgb 10.4 L (11.4-16.0) gm/dL Hct 32.3 L (34.0-46.0) % MCV 84.3 (80.0-100.0) fL MCH 27.0 (25.0-35.0) pg MCHC 32.0 (31.0-37.0) g/dL RDW 15.1 (11.5-15.5) % Plt Count 350 (150-450) k/uL Neutrophils % 61 % Lymphocytes % 29 % Monocytes % 5 % Eosinophils % 3 % Basophils % 0 % Neutrophils # 6.0 (1.3-7.7) k/uL Lymphocytes # 2.8 (1.0-4.8) k/uL Monocytes # 0.5 (0-1.0) k/uL Eosinophils # 0.3 (0-0.7) k/uL Basophils # 0.0 (0-0.2) k/uL Hypochromasia Slight Sodium 140 (137-145) mmol/L Potassium 5.0 (3.5-5.1) mmol/L Chloride 107 (98-107) mmol/L Carbon Dioxide 26 (22-30) mmol/L Anion Gap 7 mmol/L BUN 10 (7-17) mg/dL Creatinine 0.73 (0.52-1.04) mg/dL Est GFR (CKD-EPI)AfAm >90 (>60 ml/min/1.73 sqM) Est GFR (CKD-EPI)NonAf >90 (>60 ml/min/1.73 sqM) Glucose 105 H (74-99) mg/dL Calcium 9.2 (8.4-10.2) mg/dL Magnesium 1.6 (1.6-2.3) mg/dL Total Bilirubin 0.4 (0.2-1.3) mg/dL AST 14 (14-36) U/L ALT 15 (9-52) U/L Alkaline Phosphatase 56 (38-126) U/L Troponin I <0.012 (0.000-0.034) ng/mL Total Protein 7.1 (6.3-8.2) g/dL Albumin 3.6 (3.5-5.0) g/dL Disposition Clinical Impression: Fatigue, Weakness, Chronic pain Disposition: HOME SELF-CARE Condition: Stable Instructions: Fatigue (ED) Additional Instructions: Please return to the Emergency Department if symptoms worsen or any other concerns. Is patient prescribed a controlled substance at d/c from ED?: No Referrals: Miki Stewart MD [Primary Care Provider] - 1-2 days Time of Disposition: 17:08
[2018-04-26 16:09] LABS: Basophils % (A) 0 %; Eosinophils # (A) 0.3 k/uL (0-0.7); Eosinophils % (A) 3 %; HCT 32.3 % (34.0-46.0); HGB 10.4 gm/dL (11.4-16.0); Hypochromasia Slight; Lymphocytes # (A) 2.8 k/uL (1.0-4.8); Lymphocytes % (A) 29 %; MCV 84.3 fL (80.0-100.0); Monocytes # (A) 0.5 k/uL (0-1.0); Monocytes % (A) 5 %; Neutrophils % (A) 61 %; Platelet Count 350 k/uL (150-450); RBC 3.84 m/uL (3.80-5.40); RDW 15.1 % (11.5-15.5); WBC 9.8 k/uL (3.8-10.6)
[2018-04-26 16:20] LABS: ALT 15 U/L (9-52); AST 14 U/L (14-36); Albumin 3.6 g/dL (3.5-5.0); Alkaline Phosphatase 56 U/L (38-126); Anion Gap 7 mmol/L; Blood Urea Nitrogen 10 mg/dL (7-17); Calcium 9.2 mg/dL (8.4-10.2); Carbon Dioxide 26 mmol/L (22-30); Chloride 107 mmol/L (98-107); Glucose 105 mg/dL (74-99); Magnesium 1.6 mg/dL (1.6-2.3); Sodium 140 mmol/L (137-145); Total Bilirubin 0.4 mg/dL (0.2-1.3); Total Protein 7.1 g/dL (6.3-8.2)
[2018-04-26] MEDS ORDERED: KETOROLAC 30 MG/ML 1 ML VIAL IVP STA (17:09)
[2018-04-26 17:25] VITALS: BP 158/79; PULSE 96; TEMP 98.2
== END 2018-04-26 18:45 | disposition home or self-care (01) ==
LOC: EC 13:22
DX: R53.1 Weakness (principal); R53.83 Other fatigue; R10.9 Unspecified abdominal pain; G89.29 Other chronic pain; E66.01 Morbid (severe) obesity due to excess calories; I10 Essential (primary) hypertension; I25.2 Old myocardial infarction; M19.90 Unspecified osteoarthritis, unspecified site; M06.9 Rheumatoid arthritis, unspecified; M10.9 Gout, unspecified; F41.9 Anxiety disorder, unspecified; D64.9 Anemia, unspecified; F32.9 Major depressive disorder, single episode, unspecified; Z86.711 Personal history of pulmonary embolism; Z68.45 Body mass index [BMI] 70 or greater, adult; Z98.51 Tubal ligation status; Z98.890 Other specified postprocedural states; Z79.1 Long term (current) use of non-steroidal anti-inflammatories (NSAID); Z79.899 Other long term (current) drug therapy; Z88.4 Allergy status to anesthetic agent; Z88.5 Allergy status to narcotic agent; Z91.018 Allergy to other foods
CPT/HCPCS: 36415; 93005; 80053; 83735; 84484; 85025; 99285; 96374; 96361 ×2; J1885

== ENCOUNTER 2018-06-04 13:58 | Observation (INO) | payer MEDICARE, OTHER ==
[2018-06-04] MEDS ORDERED: NALOXONE 0.4 MG/ML 10 ML VIAL IVP STA (14:09)
[2018-06-04] MEDS ORDERED: SODIUM CHLORIDE 0.9% 500 ML 500 ML IV STA (14:09)
--- NOTE | 2018-06-04 14:18 | ED ---
General Adult HPI - General Stated complaint: URQ PAIN Time Seen by Provider: 06/04/18 13:58 Source: RN notes reviewed - History of Present Illness Initial comments: This is a 48-year-old female who presents emergency Department with a complaint of chronic abdominal pain. Patient states she was told initially seen her gallbladder out however since then the surgeon has told her she does not need her gallbladder out. Patient states his pain is been going on for months and she's had CAT scans and ultrasounds that they continue to occur. Patient is a diabetic was morbidly obesity and she has high blood pressure history as well. Patient states she didn't call him a daughter called EMS because she had to go to work and because her mother was having patient didn't want to be home alone so she sent to the emergency department. According to EMS she is very lethargic on all of her previous visits with her today is no different. Patient denies taking any extra pain medications or Valium. Patient denies any fever chills. Patient denies any nausea vomiting or diarrhea. Patient denies any chest pain palpitations difficulty breathing or shortness of breath. Patient denies any injury or trauma. Patient states she normally does not ambulate. Patient currently states she is not having any pain but she does occasionally get crampy abdominal pain that comes and goes and this is the pain she's been experiencing for months. - Related Data Home Medications Medication Instructions Recorded Confirmed Ferrous Sulfate [Iron (65 MG 325 mg PO BID 08/28/14 06/04/18 Elemental)] Prazosin [Minipress] 1 mg PO DAILY 04/24/17 06/04/18 Folic Acid 1 mg PO DAILY 12/01/17 06/04/18 Metoprolol Tartrate [Lopressor] 50 mg PO BID 12/01/17 06/04/18 Diazepam [Valium] 5 mg PO TID 04/05/18 06/04/18 Ergocalciferol (Vitamin D2) 50,000 unit PO MOTH 04/05/18 06/04/18 [Vitamin D2] hydrALAZINE HCL [Apresoline] 10 mg PO TID PRN 04/06/18 06/04/18 metFORMIN HCL ER [Glucophage Xr] 1,000 mg PO HS 04/06/18 06/04/18 Diclofenac Sodium [Voltaren] 75 mg PO BID 04/10/18 06/04/18 HYDROcodone/APAP 10-325MG [[place]ard 1 tab PO QID PRN 04/10/18 06/04/18 10-325] Escitalopram [Lexapro] 20 mg PO DAILY 04/26/18 06/04/18 DULoxetine HCL [Cymbalta] 60 mg PO DAILY 06/04/18 06/04/18 Levothyroxine Sodium [Synthroid] 75 mcg PO DAILY 06/04/18 06/04/18 Spironolactone 50 mg PO DAILY 06/04/18 06/04/18 Previous Rx's Medication Instructions Recorded Gabapentin [Neurontin] 600 mg PO TID #90 cap 12/06/17 Allergies Allergy/AdvReac Type Severity Reaction Status Date / Time oxycodone HCl [From Percocet] Allergy Rash/Hives Verified 06/04/18 15:06 procaine HCl [From Novocain] Allergy facial Verified 06/04/18 15:06 swelling strawberry Allergy Rash/Hives Verified 06/04/18 15:06 Review of Systems ROS Statement: Those systems with pertinent positive or pertinent negative responses have been documented in the HPI. ROS Other: All systems not noted in ROS Statement are negative. Past Medical History Past Medical History: GERD/Reflux, GI Bleed, Hypertension, Myocardial Infarction (LA), Osteoarthritis (OA), Pulmonary Embolus (PE), Renal Disease, Rheumatoid Arthritis (RA), Syncope Additional Past Medical History / Comment(s): Obesity, numbness/tingling bilateral feet, chronic phil leg wound/cellulitis currently healed, previous rt leg ulcers now healed, lower leg edema, chronic low back pain with sciatica, tail bone fracture, migraines, pt states she had toxemia with 1st and had a LA, bilateral tinnitis occasionally, bronchitis, sinus problems, gout bilateral feet, carpal tunnel syndrome bilateral wrists, hypothyoid, HTN but only with anxiety, colitis, IBS, chron's, diverticular dx, occasional low blood sugar, nephrolithiasis-pt passed on her own, chronic anemia, lower GI bleed, UTIs."sickle cell" Last Myocardial Infarction Date:: 1989 History of Any Multi-Drug Resistant Organisms: None Reported Past Surgical History: Section, Tubal Ligation Additional Past Surgical History / Comment(s): colonoscopy, 4 c-sections Past Anesthesia/Blood Transfusion Reactions: No Reported Reaction Additional Past Anesthesia/Blood Transfusion Reaction / Comment(s): Pt has received blood in the past and had itching, has had another transfusion since with no reaction. Smoking Status: Never smoker - Past Family History Father History Unknown: Yes Additional Family Medical History / Comment(s): Pt was adopted and does not know parents/family medical hx. General Exam - General Exam Comments Initial Comments: GENERAL: Patient is well-developed and well-nourished. Patient is nontoxic and well- hydrated and is in no acute distress. Suicide stepped out of the patient she slowly fades away and goes to sleep but is very easily arousable. ENT: Neck is soft and supple. No significant lymphadenopathy is noted. Oropharynx is clear. Moist mucous membranes. Neck has full range of motion without eliciting any pain. EYES: The sclera were anicteric and conjunctiva were pink and moist. Extraocular movements were intact and pupils were equal round and reactive to light. Eyelids were unremarkable. PULMONARY: Unlabored respirations. Good breath sounds bilaterally. No audible rales rhonchi or wheezing was noted. CARDIOVASCULAR: There is a regular rate and rhythm without any murmurs gallops or rubs. ABDOMEN: Soft and nontender with normal bowel sounds. Patient is morbidly obese SKIN: Skin is clear with no lesions or rashes and otherwise unremarkable. NEUROLOGIC: Patient is alert and oriented x3. Cranial nerves II through XII are grossly intact. Motor and sensory are also intact. Normal speech, volume and content. Symmetrical smile. MUSCULOSKELETAL: Patient move all 4 extremities with equal strength relative to each other however because of her size she has a hard time lifting her feet up off the bed to far. LYMPHATICS: No significant lymphadenopathy is noted PSYCHIATRIC: Normal psychiatric evaluation. Course Vital Signs 06/04/18 14:02 Temperature 98.0 F Pulse Rate 91 Respiratory 20 Rate Blood Pressure 133/89 O2 Sat by Pulse 100 Oximetry Medical Decision Making - Medical Decision Making EKG shows normal sinus rhythm at 94 bpm TN interval 150 QRS is 82 QT interval 362 QTC is 452. Patient's EKG shows no ST segment elevation or depression or T wave abnormalities are noted. KUB shows no acute abnormality. Patient was resting comfortable in the emergency department. Patient started yelling and screaming that she was in pain once I told her she was probably going home. He shouldn't refuses to go home because she states she's so much pain. I spoke with Mr. Guevara hospitalist and admitted the patient. - Lab Data Result diagrams: 06/04/18 15:20 06/04/18 15:20 Lab Results 06/04/18 06/04/18 06/04/18 Range/Units 15:04 15:20 15:20 WBC 9.6 (3.8-10.6) k/uL RBC 4.33 (3.80-5.40) m/uL Hgb 11.4 (11.4-16.0) gm/dL Hct 37.0 (34.0-46.0) % MCV 85.5 (80.0-100.0) fL MCH 26.4 (25.0-35.0) pg MCHC 30.8 L (31.0-37.0) g/dL RDW 15.3 (11.5-15.5) % Plt Count 279 (150-450) k/uL Neutrophils % 57 % Lymphocytes % 31 % Monocytes % 7 % Eosinophils % 3 % Basophils % 1 % Neutrophils # 5.5 (1.3-7.7) k/uL Lymphocytes # 3.0 (1.0-4.8) k/uL Monocytes # 0.7 (0-1.0) k/uL Eosinophils # 0.3 (0-0.7) k/uL Basophils # 0.1 (0-0.2) k/uL Hypochromasia Moderate Sample Site r rad ABG pH 7.41 (7.35-7.45) ABG pCO2 47 H (35-45) mmHg ABG pO2 78 L (83-108) mmHg ABG HCO3 29 H (21-25) mmol/L ABG Total CO2 31 H (19-24) mmol/L ABG O2 Saturation 95.6 (94-97) % ABG Base Excess 4.6 mmol/L Test Yes FiO2 21 % Sodium 141 (137-145) mmol/L Potassium 4.5 (3.5-5.1) mmol/L Chloride 106 (98-107) mmol/L Carbon Dioxide 25 (22-30) mmol/L Anion Gap 10 mmol/L BUN 12 (7-17) mg/dL Creatinine 0.87 (0.52-1.04) mg/dL Est GFR (CKD-EPI)AfAm >90 (>60 ml/min/1.73 sqM) Est GFR (CKD-EPI)NonAf 80 (>60 ml/min/1.73 sqM) Glucose 101 H (74-99) mg/dL Plasma Lactic Acid [place] (0.7-2.0) mmol/L Calcium 9.1 (8.4-10.2) mg/dL Total Bilirubin 0.6 (0.2-1.3) mg/dL AST 23 (14-36) U/L ALT 8 L (9-52) U/L Alkaline Phosphatase 75 (38-126) U/L Troponin I (0.000-0.034) ng/mL Total Protein 8.0 (6.3-8.2) g/dL Albumin 4.2 (3.5-5.0) g/dL Amylase 53 (30-110) U/L Lipase 83 (23-300) U/L 06/04/18 06/04/18 Range/Units 15:20 15:20 WBC (3.8-10.6) k/uL RBC (3.80-5.40) m/uL Hgb (11.4-16.0) gm/dL Hct (34.0-46.0) % MCV (80.0-100.0) fL MCH (25.0-35.0) pg MCHC (31.0-37.0) g/dL RDW (11.5-15.5) % Plt Count (150-450) k/uL Neutrophils % % Lymphocytes % % Monocytes % % Eosinophils % % Basophils % % Neutrophils # (1.3-7.7) k/uL Lymphocytes # (1.0-4.8) k/uL Monocytes # (0-1.0) k/uL Eosinophils # (0-0.7) k/uL Basophils # (0-0.2) k/uL Hypochromasia Sample Site ABG pH (7.35-7.45) ABG pCO2 (35-45) mmHg ABG pO2 (83-108) mmHg ABG HCO3 (21-25) mmol/L ABG Total CO2 (19-24) mmol/L ABG O2 Saturation (94-97) % ABG Base Excess mmol/L Test FiO2 % Sodium (137-145) mmol/L Potassium (3.5-5.1) mmol/L Chloride (98-107) mmol/L Carbon Dioxide (22-30) mmol/L Anion Gap mmol/L BUN (7-17) mg/dL Creatinine (0.52-1.04) mg/dL Est GFR (CKD-EPI)AfAm (>60 ml/min/1.73 sqM) Est GFR (CKD-EPI)NonAf (>60 ml/min/1.73 sqM) Glucose (74-99) mg/dL Plasma Lactic Acid Chester 1.7 (0.7-2.0) mmol/L Calcium (8.4-10.2) mg/dL Total Bilirubin (0.2-1.3) mg/dL AST (14-36) U/L ALT (9-52) U/L Alkaline Phosphatase (38-126) U/L Troponin I <0.012 (0.000-0.034) ng/mL Total Protein (6.3-8.2) g/dL Albumin (3.5-5.0) g/dL Amylase (30-110) U/L Lipase (23-300) U/L Disposition Clinical Impression: Chronic abdominal pain Disposition: ADMITTED IP TO THIS HOSP Condition: Good Referrals: Miki Stewart MD [Primary Care Provider] - 1-2 days Time of Disposition: 16:26
[2018-06-04 15:15] LABS: ABG Base Excess 4.6 mmol/L; ABG HCO3 29 mmol/L (21-25); ABG Oxygen Saturation 95.6 % (94-97); ABG PCO2 47 mmHg (35-45); ABG PH 7.41 (7.35-7.45); ABG PO2 78 mmHg (83-108); ABG TCO2 31 mmol/L (19-24)
[2018-06-04 15:52] LABS: ALT 8 U/L (9-52); AST 23 U/L (14-36); Albumin 4.2 g/dL (3.5-5.0); Alkaline Phosphatase 75 U/L (38-126); Amylase 53 U/L (30-110); Anion Gap 10 mmol/L; Blood Urea Nitrogen 12 mg/dL (7-17); Calcium 9.1 mg/dL (8.4-10.2); Carbon Dioxide 25 mmol/L (22-30); Chloride 106 mmol/L (98-107); Glucose 101 mg/dL (74-99); Lipase 83 U/L (23-300); Sodium 141 mmol/L (137-145); Total Bilirubin 0.6 mg/dL (0.2-1.3)
[2018-06-04 15:53] LABS: Potassium 4.5 mmol/L (3.5-5.1)
--- NOTE | 2018-06-04 15:57 | XR ---
EXAMINATION TYPE: XR KUB DATE OF EXAM: 06/04/2018 3:53 PM CLINICAL HISTORY: Right upper quadrant pain TECHNIQUE: 3 supine KUB images of the abdomen are obtained. COMPARISON: CT abdomen pelvis March 01, 2018. FINDINGS: Exam noted suboptimal due to patient's large body habitus. Some paucity of bowel gas is pre sent. Visualized gas is noted in nondistended small and large bowel loops. Moderate spurring and disc space narrowing both hip joints is present. There is moderate to severe multilevel spurring in the l umbar spine. No suspicious calcifications are seen. Visualized lung bases are clear. There is hypopla stic right T12 rib redemonstrated. IMPRESSION: Overall nonspecific but strongly favor nonobstructive bowel gas pattern.
[2018-06-04 16:08] LABS: Basophils # (A) 0.1 k/uL (0-0.2); Basophils % (A) 1 %; Eosinophils # (A) 0.3 k/uL (0-0.7); Eosinophils % (A) 3 %; HGB 11.4 gm/dL (11.4-16.0); Hypochromasia Moderate; Lymphocytes % (A) 31 %; MCH 26.4 pg (25.0-35.0); MCHC 30.8 g/dL (31.0-37.0); MCV 85.5 fL (80.0-100.0); Mean Platelet Volume 6.9; Monocytes # (A) 0.7 k/uL (0-1.0); Monocytes % (A) 7 %; Neutrophils # (A) 5.5 k/uL (1.3-7.7); Neutrophils % (A) 57 %; Platelet Count 279 k/uL (150-450); RBC 4.33 m/uL (3.80-5.40); RDW 15.3 % (11.5-15.5); WBC 9.6 k/uL (3.8-10.6)
[2018-06-04] MEDS ORDERED: SODIUM CHLORIDE 0.9% 1,000 ML IV ONE (16:49)
[2018-06-04] MEDS ORDERED: hydrALAZINE HCL 10 MG TAB PO PRN (20:07)
[2018-06-04] MEDS ORDERED: TEMAZEPAM 15 MG CAP PO PRN (21:00)
[2018-06-04] MEDS: METOPROLOL TARTRATE 50 MG TAB PO SCH (21:26)
[2018-06-04] MEDS: HYDROcodone/APAP 10-325MG 1 EACH TAB PO PRN (21:26)
[2018-06-04] MEDS: FERROUS SULFATE 325 MG TAB PO SCH (21:27)
--- NOTE | 2018-06-04 22:01 | HP ---
HISTORY AND PHYSICAL DATE OF SERVICE: 06/04/2018 CHIEF COMPLAINT: Abdominal pain. HISTORY OF PRESENT ILLNESS: This 48-year-old gentleman with a past medical history of multiple medical problems including GERD, history of hypertension, myocardial infarction, DJD, pulmonary embolism, history of rheumatoid arthritis, syncope, anxiety, depression, being followed by Dr. Stewart in the outpatient setting is complaining of abdominal pain. The abdominal pain is on and off for the last 6 months. Patient has had multiple evaluations. One of the CT scans showed a hydropic gallbladder. The patient is complaining of abdominal pain which is felt in the mid part of the anterior part and lateral part in the lower part also. A node was felt by the patient. There is no history of any fevers or rigors. Patient has had recent diarrhea, which has been controlled by Imodium at this time. PAST MEDICAL HISTORY: History of GI bleed, GERD, hypertension, myocardial infarction, pulmonary embolism, rheumatoid arthritis,renal disease. MEDICATIONS: Home medications are: 1. Metformin 1000 mg at bedtime. 2. Apresoline 10 mg t.i.d. p.r.n. 3. Aldactone 50 mg at bedtime. 4. Minipress 1 mg b.i.d. 5. Lopressor 50 mg b.i.d. 6. Synthroid 75 mcg p.o. daily. 7. [place] 10 mg q.i.d. p.r.n. 8. Neurontin 600 mg p.o. t.i.d. 9. Folic acid 1 mg. 10.Iron 320 mg p.o. b.i.d. 11.Lexapro 20 mg p.o. daily. 12.Vitamin D2, 50,000. 13.Voltaren 75 mg p.o. b.i.d. 14.Valium 5 mg p.o. t.i.d. 15.Cymbalta 60 mg p.o. daily. ALLERGIES: OXYCODONE, STRAWBERRIES. FAMILY HISTORY: The patient is adopted. SOCIAL HISTORY: No history of smoking. No history of alcohol intake. REVIEW OF SYSTEMS: ENT: No diminished vision or hearing. CARDIOVASCULAR: No angina. RESPIRATORY: No cough. GI: As mentioned earlier. : No dysuria. NERVOUS SYSTEM: No numbness or weakness. ALLERGY/IMMUNOLOGY: No asthma or hayfever. MUSCULOSKELETAL: As mentioned earlier. HEMATOLOGY/ONCOLOGY: No history of anemia. ENDOCRINE: As mentioned earlier. Hypothyroidism. CONSTITUTIONAL: As mentioned. HEMATOLOGY: Negative. PSYCHIATRY: As mentioned earlier. PHYSICAL EXAM: VITAL SIGNS: Pulse 98, blood pressure 140/94, respirations 18, temperature 98.4 , pulse ox 94% on room air. HEENT: Oral mucosa moist. NECK: No jugular venous distention. No lymph node enlargement. CARDIOVASCULAR: S1 and S2 muffled. RESPIRATORY: Lung sounds diminished at the bases. No rhonchi. No crackles. ABDOMEN: Soft, obese, mild diffuse tenderness in the mid part of the abdomen as well as right lateral part. No guarding. No rigidity. No mass palpable. No ascites. Bowel sounds present. LEGS: No edema, no swelling. NERVOUS SYSTEM: Higher functions as mentioned earlier. Moves all 4 limbs. No focal motor deficits. LYMPHATICS: No lymph nodes palpable in the neck, axillae or groin. SKIN: No ulcers or rashes or bleeding. LABS: WBC 9.2, hemoglobin 11.4, ABGs noted. Otherwise sodium 140, potassium 4.5, ALT 8. ASSESSMENT: 1. Abdominal pain, acute on chronic for evaluation, rule out small abdominal wall hernia. 2. History of hydropic gallbladder. 3. Gastrointestinal bleed. 4. Hypertension. 5. History of myocardial infarction. 6. History of degenerative joint disease. 7. History of pulmonary embolus. 8. History of rheumatoid arthritis. 9. History of syncope. 10.Obesity. 11.Chronic bilateral leg wound and cellulitis. 12.History of right leg ulcers. 13.History of migraine. 14.History of tinnitus. 15.History of gout. 16.History of syndrome. 17.History of anxiety. 18.History of colitis. 19.History of irritable bowel syndrome. 20.History of Crohn's. 21.History of diverticulitis. 22.History of nephrolithiasis. 23.History of sickle cell disease. 24.History of anxiety and depression. 25.Super morbid obesity with a BMI of 72.4. RECOMMENDATIONS: Recommend to continue symptomatic treatment. Otherwise at this time I recommend CT scan of the abdomen, surgical evaluation and symptomatic treatment. Resume the home medications. Prognosis guarded because of multiple complex medical issues. Further recommendations to follow. MMODL / IJN: [id number] / [facility]
[2018-06-04 22:03] LABS: Amorphous Sediment,Urine Rare /hpf; Appearance,Urine Cloudy (Clear); Bacteria,Urine Rare /hpf; Bilirubin,Urine Negative (Negative); Blood,Urine Negative (Negative); Budding Yeast,Urine Rare /hpf; Color,Urine Yellow; Glucose,Urine (UA) Negative (Negative); Ketones,Urine Negative (Negative); Leukocyte Esterase,Urine Trace (Negative); Mucus,Urine Rare /hpf; Nitrite,Urine Negative (Negative); Protein,Urine Negative (Negative); RBC,Urine <1 /hpf (0-5); Specific Gravity,Urine 1.013 (1.001-1.035); Squamous Epithelial Cell,Urine 18 /hpf (0-4); Urobilinogen,Urine <2.0 mg/dL (<2.0); WBC,Urine 2 /hpf (0-5)
[2018-06-04 22:39] LABS: Amphetamine Screen,Urine Not Detected (NotDetected); Barbiturate Screen,Urine Not Detected (NotDetected); Benzodiazepines Screen,Urine Detected (NotDetected); Cocaine Screen,Urine Not Detected (NotDetected); Methadone Screen, Urine Not Detected (NotDetected); Opiate Screen,Urine Detected (NotDetected); Oxycodone Screen, Urine Not Detected (NotDetected); Phencyclidine Screen,Urine Not Detected (NotDetected); Tricyclic Antidepressant,Urine Not Detected (NotDetected); Urn Cannabinoid Scrn Not Detected (NotDetected)
[2018-06-04] MEDS: GABAPENTIN 300 MG CAP PO SCH (22:50)
[2018-06-04] MEDS: ETODOLAC 400 MG TAB PO SCH (22:50)
[2018-06-04] MEDS: DIAZEPAM 5 MG TAB PO SCH (22:50)
[2018-06-05] MEDS: HEPARIN SODIUM,PORCINE 5,000 UNIT/ML 1 ML VIAL SQ SCH ×3 (00:03→15:57)
[2018-06-05] MEDS: LEVOTHYROXINE 75 MCG TAB PO SCH (06:12)
[2018-06-05] MEDS: HYDROcodone/APAP 10-325MG 1 EACH TAB PO PRN ×3 (06:12→22:12)
[2018-06-05 06:20] VITALS: BMI 72.3
[2018-06-05] MEDS: FERROUS SULFATE 325 MG TAB PO SCH ×2 (08:10→21:07)
[2018-06-05] MEDS: GABAPENTIN 300 MG CAP PO SCH ×3 (08:10→22:12)
[2018-06-05] MEDS: metFORMIN 500 MG TAB PO SCH ×2 (08:10→21:07)
[2018-06-05] MEDS: METOPROLOL TARTRATE 50 MG TAB PO SCH ×2 (08:11→21:07)
[2018-06-05] MEDS: FOLIC ACID 1 MG TAB PO SCH (08:11)
[2018-06-05] MEDS: DIAZEPAM 5 MG TAB PO SCH ×3 (08:11→22:12)
[2018-06-05] MEDS: DULoxetine HCL 60 MG CAPSULE.DR PO SCH (08:11)
[2018-06-05] MEDS: ETODOLAC 400 MG TAB PO SCH ×2 (08:11→21:06)
[2018-06-05] MEDS: PRAZOSIN 1 MG CAP PO SCH (08:11)
[2018-06-05] MEDS: SPIRONOLACTONE 25 MG TAB PO SCH (08:17)
[2018-06-05] MEDS: ESCITALOPRAM 20 MG TAB PO SCH (08:21)
[2018-06-05] MEDS: IOPAMIDOL-300 CONTRAST 30 ML VIAL (ORAL USE) PO PRN ×2 (08:25→09:14)
--- NOTE | 2018-06-05 10:43 | CT ---
EXAMINATION TYPE: CT abdomen pelvis wo con DATE OF EXAM: 06/05/2018 COMPARISON: 03/01/2018 HISTORY: 48-year-old female Generalized abdominal pain. Abdominal wall hernia/gallbladder hydrops. CT DLP: 2722 mGycm. Automated exposure control for dose reduction was used. TECHNIQUE: Contiguous axial scanning of the abdomen and pelvis without IV contrast. Coronal and sagit yvonne reconstructions performed. FINDINGS: Heart borderline enlarged. Lung bases clear without pleural effusion. Large patient body habitus limits assessment. Further limited by lack of IV contrast. Liver remains enlarged at 20.2 cm. Gallbladder measures 4.1 cm wide which is improved from 03/18/2018 but still mildly hydropic. Noncontrast appearance of the adrenal glands, kidneys, spleen, pancreas show no gross abnormality. No dilated small bowel, free fluid, or free air. No mesenteric or retroperitoneal lymphadenopathy. Small fatty umbilical hernia noted and some generalized edema of the subcutaneous adipose tissues. Left-sided colonic diverticulosis without pericolonic inflammatory change. Mild to moderate stool in the sigmoid colon and rectum. Bladder nondistended. Uterus is visualized. The ovaries are not well seen. Prominent artifacts from l arge body habitus in the pelvis. Borderline to mildly enlarged pelvic lymph nodes measure up to 1.1 c m along the external iliac chains and are unchanged for 3 months. No abnormal fluid collection in the pelvis. Bones: Degenerative changes at the hips and SI joints and throughout the visualized spine. IMPRESSION: 1. Gallbladder measures 4.1 cm wide which is improved from 03/01/2018 but still mildly hydropic. No casas rrounding inflammation. 2. Small fatty umbilical hernia. 3. Hepatomegaly redemonstrated (20.2 cm). #4 left-sided colonic diverticulosis without evidence for a cute diverticulitis.
[2018-06-05 11:30] LABS: Anion Gap 8 mmol/L; Blood Urea Nitrogen 10 mg/dL (7-17); Carbon Dioxide 25 mmol/L (22-30); Chloride 109 mmol/L (98-107); Glucose 124 mg/dL (74-99); Sodium 142 mmol/L (137-145)
[2018-06-05 11:31] LABS: Potassium 4.7 mmol/L (3.5-5.1)
[2018-06-05 11:52] LABS: Basophils % (A) 0 %; Eosinophils # (A) 0.4 k/uL (0-0.7); Eosinophils % (A) 3 %; HCT 32.4 % (34.0-46.0); HGB 10.4 gm/dL (11.4-16.0); Lymphocytes # (A) 3.4 k/uL (1.0-4.8); Lymphocytes % (A) 33 %; MCH 26.2 pg (25.0-35.0); Mean Platelet Volume 8.5; Monocytes # (A) 0.6 k/uL (0-1.0); Monocytes % (A) 5 %; Neutrophils # (A) 5.8 k/uL (1.3-7.7); Neutrophils % (A) 56 %; Platelet Count 292 k/uL (150-450); RBC 3.95 m/uL (3.80-5.40); RDW 15.4 % (11.5-15.5); WBC 10.3 k/uL (3.8-10.6)
--- NOTE | 2018-06-05 14:47 | PN ---
PROGRESS NOTE DATE OF SERVICE: 06/05/2018 This 48-year-old woman was admitted with severe abdominal pain, also had a CAT scan today which showed a gallbladder hydropic which is 4.1 cm and a small fatty umbilical hernia and hepatomegaly redemonstrated. Patient will be closely monitored. No chest pain. No palpitations. No fever. PHYSICAL EXAM: Alert and oriented x3. Pulse 84, blood pressure 143/78, respirations 16, temperature 98 degrees, pulse ox 98% on room air. HEENT: Conjunctive normal, oral mucosa moist. Neck is no jugular venous distention. No lymph node enlargement. CARDIOVASCULAR: S1, S2, muffled. RESPIRATORY: Breath sounds diminished at the bases, no rhonchi no crackles. ABDOMEN: Soft. Mild diffuse discomfort on palpation. No guarding. No rigidity. No mass palpable. LEGS: No edema, no swelling. NERVOUS SYSTEM: No focal deficits. LABS: WBC is 10.3, hemoglobin is 10.4, UA noted. Drug screen is noted. ASSESSMENT: 1. Abdominal pain with acute on chronic evaluation, rule out possibly secondary to fatty umbilical hernia. 2. Hydropic gallbladder 4.1 cm in the CAT scan. 3. Gastrointestinal bleed history. 4. Hypertension. 5. History of myocardial infarction. 6. History of degenerative joint disease. 7. History of pulmonary embolism. 8. History of rheumatoid arthritis. 9. History of syncope. 10.History of obesity. 11.Chronic bilateral leg wound cellulitis. 12.History of right leg ulcers. 13.History of migraines. 14.History of tinnitus. 15.History of gout. 16.Anxiety. 17.Colitis. 18.History of irritable bowel syndrome. 19.History of Crohn's disease. 20.History of diverticulitis. 21.History of nephrolithiasis. 22.History of Sickle cell disease. 23.Anxiety, depression. 24.Super morbid obesity with body mass index of 72.4. RECOMMENDATION: Recommend to continue current management and symptomatic treatment. At this time, I would recommend to continue symptomatic treatment. Surgical consultation. Increase ambulation. Continue the rest of medications. Repeat labs will be ordered. Guarded prognosis. Further recommendations to follow. MMODL / IJN: [id number] /
[2018-06-05] MEDS: HYDROmorphone 0.5 MG/0.5 ML SYRINGE IVP PRN (17:41)
--- NOTE | 2018-06-05 18:23 | P.GSCN ---
History of Present Illness Consult date: 06/05/18 Reason for Consult: abdominal pain History of present illness: this is a 48-year-old female who has a history of chronic pain. I have seen her in the past. She has known biliary dysfunction. She is not an operative candidate. Patient has complaints of some vague diarrhea and abdominal pain Past Medical History Past Medical History: GERD/Reflux, GI Bleed, Hypertension, Myocardial Infarction ([place]), Osteoarthritis (OA), Pulmonary Embolus (PE), Renal Disease, Rheumatoid Arthritis (RA), Syncope Additional Past Medical History / Comment(s): Obesity, numbness/tingling bilateral feet, chronic phil leg wound/cellulitis currently healed, previous rt leg ulcers now healed, lower leg edema, chronic low back pain with sciatica, tail bone fracture, migraines, pt states she had toxemia with 1st and had a [place], bilateral tinnitis occasionally, bronchitis, sinus problems, gout bilateral feet, carpal tunnel syndrome bilateral wrists, hypothyoid, HTN but only with anxiety, colitis, IBS, chron's, diverticular dx, occasional low blood sugar, nephrolithiasis-pt passed on her own, chronic anemia, lower GI bleed, UTIs."sickle cell" Last Myocardial Infarction Date:: 1989 History of Any Multi-Drug Resistant Organisms: None Reported Past Surgical History: Section, Tubal Ligation Additional Past Surgical History / Comment(s): colonoscopy, 4 c-sections Past Anesthesia/Blood Transfusion Reactions: No Reported Reaction Additional Past Anesthesia/Blood Transfusion Reaction / Comm: Pt has received blood in the past and had itching, has had another transfusion since with no reaction. Past Psychological History: Anxiety, Depression Additional Psychological History / Comment(s): She has had several suicide attempts in the past .pt stated she lives with her daughter, pt stated has bsc and 2 walkers and a medical bed. pt is vague with response as to what she is able to do activity [place].first she said bedrest then she stated she has a bsc she uses. Smoking Status: Never smoker Past Alcohol Use History: Rare Past Drug Use History: None Reported - Past Family History Father History Unknown: Yes Additional Family Medical History / Comment(s): Pt was adopted and does not know parents/family medical hx. Medications and Allergies Home Medications Medication Instructions Recorded Confirmed Type Ferrous Sulfate [Iron (65 MG 325 mg PO BID 08/28/14 06/04/18 History Elemental)] Prazosin [Minipress] 1 mg PO DAILY 04/24/17 06/04/18 History Folic Acid 1 mg PO DAILY 12/01/17 06/04/18 History Metoprolol Tartrate [Lopressor] 50 mg PO BID 12/01/17 06/04/18 History Gabapentin [Neurontin] 600 mg PO TID #90 cap 12/06/17 06/04/18 Rx Diazepam [Valium] 5 mg PO TID 04/05/18 06/04/18 History Ergocalciferol (Vitamin D2) 50,000 unit PO MOTH 04/05/18 06/04/18 History [Vitamin D2] hydrALAZINE HCL [Apresoline] 10 mg PO TID PRN 04/06/18 06/04/18 History metFORMIN HCL ER [Glucophage Xr] 1,000 mg PO HS 04/06/18 06/04/18 History Diclofenac Sodium [Voltaren] 75 mg PO BID 04/10/18 06/04/18 History HYDROcodone/APAP 10-325MG [[place] 1 tab PO QID PRN 04/10/18 06/04/18 History 10-325] Escitalopram [Lexapro] 20 mg PO DAILY 04/26/18 06/04/18 History DULoxetine HCL [Cymbalta] 60 mg PO DAILY 06/04/18 06/04/18 History Levothyroxine Sodium [Synthroid] 75 mcg PO DAILY 06/04/18 06/04/18 History Spironolactone 50 mg PO DAILY 06/04/18 06/04/18 History Allergies Allergy/AdvReac Type Severity Reaction Status Date / Time oxycodone HCl [From Percocet] Allergy Rash/Hives Verified 06/04/18 15:06 procaine HCl [From Novocain] Allergy facial Verified 06/04/18 15:06 swelling strawberry Allergy Rash/Hives Verified 06/04/18 15:06 Surgical - Exam Vital Signs Temp Pulse Resp BP Pulse Ox 98.0 F 91 20 133/89 100 06/04/18 14:02 06/04/18 14:02 06/04/18 14:02 06/04/18 14:02 06/04/18 14:02 - General well developed, well nourished, no distress - Eyes PERRL - ENT normal pinna - Neck no masses - Respiratory normal expansion - Cardiovascular Rhythm: regular - Abdomen Abdomen: soft, non tender Results - Labs 06/05/18 10:35 06/05/18 10:35 Abnormal Lab Results - Last 24 Hours (Table) 06/04/18 06/05/18 06/05/18 Range/Units 21:43 10:35 10:35 Hgb 10.4 L (11.4-16.0) gm/dL Hct 32.4 L (34.0-46.0) % Chloride 109 H (98-107) mmol/L Glucose 124 H (74-99) mg/dL Urine Appearance Cloudy H (Clear) Ur Leukocyte Esterase Trace H (Negative) Ur Squamous Epith Cells 18 H (0-4) /hpf Amorphous Sediment Rare H (None) /hpf Urine Bacteria Rare H (None) /hpf Urine Mucus Rare H (None) /hpf Urine Yeast (Budding) Rare H (None) /hpf Urine Opiates Screen Detected H (NotDetected) U Benzodiazepines Scrn Detected H (NotDetected) Diabetes panel 06/05/18 Range/Units 10:35 Sodium 142 (137-145) mmol/L Potassium 4.7 (3.5-5.1) mmol/L Chloride 109 H (98-107) mmol/L Carbon Dioxide 25 (22-30) mmol/L BUN 10 (7-17) mg/dL Creatinine 0.73 (0.52-1.04) mg/dL Glucose 124 H (74-99) mg/dL Calcium 9.0 (8.4-10.2) mg/dL Calcium panel 06/05/18 Range/Units 10:35 Calcium 9.0 (8.4-10.2) mg/dL Pituitary panel 06/05/18 Range/Units 10:35 Sodium 142 (137-145) mmol/L Potassium 4.7 (3.5-5.1) mmol/L Chloride 109 H (98-107) mmol/L Carbon Dioxide 25 (22-30) mmol/L BUN 10 (7-17) mg/dL Creatinine 0.73 (0.52-1.04) mg/dL Glucose 124 H (74-99) mg/dL Calcium 9.0 (8.4-10.2) mg/dL Adrenal panel 06/05/18 Range/Units 10:35 Sodium 142 (137-145) mmol/L Potassium 4.7 (3.5-5.1) mmol/L Chloride 109 H (98-107) mmol/L Carbon Dioxide 25 (22-30) mmol/L BUN 10 (7-17) mg/dL Creatinine 0.73 (0.52-1.04) mg/dL Glucose 124 H (74-99) mg/dL Calcium 9.0 (8.4-10.2) mg/dL Assessment and Plan Assessment: vague abdominal pain. No surgical intervention iplanned. I recommend discharge andpatient to follow up at a tertiary care center
[2018-06-06] MEDS: HEPARIN SODIUM,PORCINE 5,000 UNIT/ML 1 ML VIAL SQ SCH ×3 (00:12→17:00)
[2018-06-06] MEDS: HYDROmorphone 0.5 MG/0.5 ML SYRINGE IVP PRN ×3 (00:12→14:23)
[2018-06-06] MEDS: HYDROcodone/APAP 10-325MG 1 EACH TAB PO PRN (03:47)
[2018-06-06] MEDS: LEVOTHYROXINE 75 MCG TAB PO SCH (07:20)
[2018-06-06 07:29] VITALS: BP 121/76; PULSE 86; RESP 18; TEMP 97.8
[2018-06-06 08:52] LABS: Basophils % (A) 0 %; Eosinophils # (A) 0.2 k/uL (0-0.7); Eosinophils % (A) 3 %; HCT 30.6 % (34.0-46.0); HGB 9.4 gm/dL (11.4-16.0); Hypochromasia Moderate; Lymphocytes # (A) 2.9 k/uL (1.0-4.8); Lymphocytes % (A) 36 %; MCHC 30.9 g/dL (31.0-37.0); MCV 84.2 fL (80.0-100.0); Mean Platelet Volume 6.5; Monocytes # (A) 0.4 k/uL (0-1.0); Monocytes % (A) 5 %; Neutrophils # (A) 4.2 k/uL (1.3-7.7); Neutrophils % (A) 53 %; Platelet Count 351 k/uL (150-450); RBC 3.63 m/uL (3.80-5.40); RDW 15.3 % (11.5-15.5); WBC 7.9 k/uL (3.8-10.6)
[2018-06-06 09:13] LABS: Anion Gap 7 mmol/L; Blood Urea Nitrogen 10 mg/dL (7-17); Calcium 8.9 mg/dL (8.4-10.2); Carbon Dioxide 28 mmol/L (22-30); Chloride 106 mmol/L (98-107); Glucose 105 mg/dL (74-99); Potassium 4.4 mmol/L (3.5-5.1); Sodium 141 mmol/L (137-145)
[2018-06-06] MEDS: ETODOLAC 400 MG TAB PO SCH (10:12)
[2018-06-06] MEDS: SPIRONOLACTONE 25 MG TAB PO SCH (10:13)
[2018-06-06] MEDS: metFORMIN 500 MG TAB PO SCH (10:14)
[2018-06-06] MEDS: FERROUS SULFATE 325 MG TAB PO SCH (10:14)
[2018-06-06] MEDS: METOPROLOL TARTRATE 50 MG TAB PO SCH (10:14)
[2018-06-06] MEDS: PRAZOSIN 1 MG CAP PO SCH (10:14)
[2018-06-06] MEDS: FOLIC ACID 1 MG TAB PO SCH (10:15)
[2018-06-06] MEDS: DULoxetine HCL 60 MG CAPSULE.DR PO SCH (10:15)
[2018-06-06] MEDS: ESCITALOPRAM 20 MG TAB PO SCH (10:17)
[2018-06-06] MEDS: GABAPENTIN 300 MG CAP PO SCH ×2 (10:17→17:00)
[2018-06-06] MEDS: DIAZEPAM 5 MG TAB PO SCH ×2 (10:17→17:00)
--- NOTE | 2018-06-06 16:52 | P.PN ---
Progress Note - Text Progress Note Date: 06/06/18 The patient is resting comfortably in her bed. She states she has some complaints of abdominal pain. She looks very comfortable however. On exam her vital signs are stable. Her abdomen is soft obese. There is minimal tenderness. The patient that her biliary dysfunction is not causing this pain. I recommended follow-up at a tertiary care center.
--- NOTE | 2018-06-06 23:57 | DS ---
DISCHARGE SUMMARY DATE OF SERVICE: 06/06/2018 FINAL DIAGNOSES: 1. Abdominal pain, acute on chronic, for evaluation, possibly secondary to fatty umbilical hernia. 2. Hydropic gallbladder 4.1 cm, improving on the repeat CT scan. 3. Gastrointestinal bleed history. 4. Hypertension. 5. History of myocardial infarction. 6. History of degenerative joint disease. 7. History of pulmonary embolism. 8. History of rheumatoid arthritis. 9. History of syncope. 10.History of obesity. 11.Chronic bilateral leg wounds and cellulitis. 12.History of right leg ulcer. 13.History of migraine. 14.History of tinnitus. 15.History of gout. 16.History of anxiety. 17.History of colitis. 18.History of irritable bowel syndrome. 19.History of Crohn's disease. 20.History of diverticulitis. 21.History of nephrolithiasis. 22.History of sickle cell disease. 23.Anxiety, depression. 24.Super morbid obesity with body mass index of 72.4. DISCHARGE DISPOSITION: The patient will be discharged in stable condition with guarded prognosis. HISTORY OF PRESENT ILLNESS: This 48-year-old woman with a past medical history of multiple medical problems was admitted with abdominal pain which was acute on chronic in nature. The patient was also found to have a fatty umbilical hernia. Hydropic gallbladder was also noted. Surgery saw the patient. No acute measures were recommended. Tertiary care referral was recommended by surgeon Dr. Zavaleta. I recommended that the social staff worker and Case Management to obtain a follow-up appointment with [facility] for further evaluation and treatment. On exam, vitals are stable. CARDIOVASCULAR: S1, S2. ABDOMEN: Soft. NERVOUS SYSTEM: No focal deficit. DISCHARGE ADVICE AND MEDICATIONS: 1. Diet is cardiac. 2. Activity limited until followup. 3. Follow up with Dr. Stewart in 2-3 days. 4. Follow up at [facility] in one week as recommended. 5. Valium 5 mg p.o. t.i.d. 6. Voltaren 75 mg p.o. b.i.d. 7. Cymbalta 60 mg p.o. daily. 8. Vitamin D2 50,000 monthly. 9. Lexapro 20 mg daily. 10.Iron 325 mg p.o. b.i.d. 11.Folic acid 1 mg daily. 12.Apresoline 10 mg t.i.d. p.r.n. 13.[place] 10 mg q.i.d. p.r.n. 14.Synthroid 75 mcg p.o. daily. 15.Glucophage XR 1000 mg p.o. at bedtime. 16.Lopressor 50 mg p.o. b.i.d. 17.Minipress 1 mg p.o. daily. 18.Aldactone 50 mg p.o. daily. 19.Neurontin 600 mg p.o. t.i.d. MMODL / IJN: [id number] /
[2018-06-07] MEDS ORDERED: ERGOCALCIFEROL 50,000 UNIT CAP PO SCH (09:00)
== END 2018-06-06 18:42 | disposition home or self-care (01) ==
LOC: EC 13:58 → 4MS4W 16:51 → 4SSUR 17:32
PROVIDERS: ADMIT Hospitalist; ATTEND Hospitalist
DX: G89.29 Other chronic pain (principal); R10.11 Right upper quadrant pain; K42.9 Umbilical hernia without obstruction or gangrene; K82.1 Hydrops of gallbladder; Z87.19 Personal history of other diseases of the digestive system; I10 Essential (primary) hypertension; Z86.711 Personal history of pulmonary embolism; E66.01 Morbid (severe) obesity due to excess calories; Z68.45 Body mass index [BMI] 70 or greater, adult; I25.2 Old myocardial infarction; G43.909 Migraine, unspecified, not intractable, without status migrainosus; Z87.442 Personal history of urinary calculi; H93.19 Tinnitus, unspecified ear; E11.9 Type 2 diabetes mellitus without complications; R16.0 Hepatomegaly, not elsewhere classified; M19.90 Unspecified osteoarthritis, unspecified site; M06.9 Rheumatoid arthritis, unspecified; M10.9 Gout, unspecified; E03.9 Hypothyroidism, unspecified; F41.9 Anxiety disorder, unspecified; F32.9 Major depressive disorder, single episode, unspecified; M54.40 Lumbago with sciatica, unspecified side; D64.9 Anemia, unspecified; Z79.84 Long term (current) use of oral hypoglycemic drugs; Z79.1 Long term (current) use of non-steroidal anti-inflammatories (NSAID); Z79.899 Other long term (current) drug therapy; Z79.890 Hormone replacement therapy; Z88.5 Allergy status to narcotic agent; Z91.018 Allergy to other foods; Z88.4 Allergy status to anesthetic agent; Z86.19 Personal history of other infectious and parasitic diseases; Z87.440 Personal history of urinary (tract) infections; Z91.5 Personal history of self-harm
CPT/HCPCS: 36415; 36600; 74018; 74176; 80048; 80053; 80306; 81001; 82150; 82805; 83605; 83690; 84484; 85025; 93005; 96361; 96372; 96374; 96376; 99285

== ENCOUNTER 2018-06-09 14:32 | Emergency (ER) | payer MEDICARE, OTHER ==
[2018-06-09 14:47] VITALS: PULSE 74
[2018-06-09] MEDS ORDERED: MORPHINE SULFATE 4 MG/ML SYRINGE IV STA (15:48)
[2018-06-09] MEDS ORDERED: ONDANSETRON 4 MG/2 ML VIAL IVP STA (15:48)
[2018-06-09] MEDS ORDERED: SODIUM CHLORIDE 0.9% 500 ML 500 ML IV STA (15:48)
[2018-06-09 16:29] LABS: Appearance,Urine Clear (Clear); Basophils % (A) 1 %; Bilirubin,Urine Negative (Negative); Blood,Urine Negative (Negative); Color,Urine Light Yellow; Eosinophils # (A) 0.3 k/uL (0-0.7); Eosinophils % (A) 3 %; Glucose,Urine (UA) Negative (Negative); HCT 32.7 % (34.0-46.0); HGB 10.4 gm/dL (11.4-16.0); Ketones,Urine Negative (Negative); Leukocyte Esterase,Urine Negative (Negative); Lymphocytes # (A) 1.9 k/uL (1.0-4.8); Lymphocytes % (A) 23 %; MCH 25.6 pg (25.0-35.0); MCHC 31.7 g/dL (31.0-37.0); MCV 80.7 fL (80.0-100.0); Mean Platelet Volume 6.7; Monocytes # (A) 0.6 k/uL (0-1.0); Monocytes % (A) 7 %; Neutrophils # (A) 5.4 k/uL (1.3-7.7); Neutrophils % (A) 64 %; Nitrite,Urine Negative (Negative); PH, Urine 7.5 (5.0-8.0); Platelet Count 321 k/uL (150-450); Protein,Urine Negative (Negative); RBC 4.06 m/uL (3.80-5.40); RDW 15.5 % (11.5-15.5); Specific Gravity,Urine 1.007 (1.001-1.035); Urobilinogen,Urine <2.0 mg/dL (<2.0); WBC 8.4 k/uL (3.8-10.6)
[2018-06-09 16:42] LABS: ALT 22 U/L (9-52); AST 18 U/L (14-36); Alkaline Phosphatase 70 U/L (38-126); Amylase 42 U/L (30-110); Anion Gap 6 mmol/L; Blood Urea Nitrogen 7 mg/dL (7-17); Calcium 9.4 mg/dL (8.4-10.2); Carbon Dioxide 31 mmol/L (22-30); Chloride 104 mmol/L (98-107); Glucose 104 mg/dL (74-99); Lipase 76 U/L (23-300); Potassium 4.2 mmol/L (3.5-5.1); Sodium 141 mmol/L (137-145); Total Bilirubin 0.6 mg/dL (0.2-1.3); Total Protein 7.5 g/dL (6.3-8.2)
--- NOTE | 2018-06-09 17:26 | ED ---
Abdominal Pain HPI - General Chief Complaint: Abdominal Pain Stated Complaint: Abd Pain Time Seen by Provider: 06/09/18 14:57 Source: patient Mode of arrival: EMS Limitations: no limitations - History of Present Illness Initial Comments: 48-year-old female patient presents to the emergency department today for evaluation of upper abdominal pain. Patient states his pain has been chronic over the last few months. States that the home care nurse came in to see her at home today started vital signs are elevated and with this. She should be transferred to the ER for evaluation. Patient was discharged 3 days ago for similar symptoms. She was told by general surgery that she needed to follow-up with surgeon to [facility] surgical patient regarding her gallbladder due to body habitus. Patient states she has been nauseated but has not vomited. States she feels increasingly weak. She denies any fevers or chills with this. Denies any constipation or diarrhea. Patient denies any recent rash, shortness breath, chest pain, back pain, numbness, tingling, dizziness, weakness , hematuria, dysuria, urinary urgency, urinary frequency, headache, visual changes, or any other complaints. - Related Data Home Medications Medication Instructions Recorded Confirmed Ferrous Sulfate [Iron (65 MG 325 mg PO BID 08/28/14 06/04/18 Elemental)] Prazosin [Minipress] 1 mg PO DAILY 04/24/17 06/04/18 Folic Acid 1 mg PO DAILY 12/01/17 06/04/18 Metoprolol Tartrate [Lopressor] 50 mg PO BID 12/01/17 06/04/18 Diazepam [Valium] 5 mg PO TID 04/05/18 06/04/18 Ergocalciferol (Vitamin D2) 50,000 unit PO MOTH 04/05/18 06/04/18 [Vitamin D2] hydrALAZINE HCL [Apresoline] 10 mg PO TID PRN 04/06/18 06/04/18 metFORMIN HCL ER [Glucophage Xr] 1,000 mg PO HS 04/06/18 06/04/18 Diclofenac Sodium [Voltaren] 75 mg PO BID 04/10/18 06/04/18 HYDROcodone/APAP 10-325MG [[place] 1 tab PO QID PRN 04/10/18 06/04/18 10-325] Escitalopram [Lexapro] 20 mg PO DAILY 04/26/18 06/04/18 DULoxetine HCL [Cymbalta] 60 mg PO DAILY 06/04/18 06/04/18 Levothyroxine Sodium [Synthroid] 75 mcg PO DAILY 06/04/18 06/04/18 Spironolactone 50 mg PO DAILY 06/04/18 06/04/18 Previous Rx's Medication Instructions Recorded Gabapentin [Neurontin] 600 mg PO TID #90 cap 12/06/17 Allergies Allergy/AdvReac Type Severity Reaction Status Date / Time oxycodone HCl [From Percocet] Allergy Rash/Hives Verified 06/09/18 14:47 procaine HCl [From Novocain] Allergy facial Verified 06/09/18 14:47 swelling strawberry Allergy Rash/Hives Verified 06/09/18 14:47 Review of Systems ROS Statement: Those systems with pertinent positive or pertinent negative responses have been documented in the HPI. ROS Other: All systems not noted in ROS Statement are negative. Past Medical History Past Medical History: GERD/Reflux, GI Bleed, Hypertension, Myocardial Infarction ([place]), Osteoarthritis (OA), Pulmonary Embolus (PE), Renal Disease, Rheumatoid Arthritis (RA), Syncope Additional Past Medical History / Comment(s): Obesity, numbness/tingling bilateral feet, chronic phil leg wound/cellulitis currently healed, previous rt leg ulcers now healed, lower leg edema, chronic low back pain with sciatica, tail bone fracture, migraines, pt states she had toxemia with 1st and had a [place], bilateral tinnitis occasionally, bronchitis, sinus problems, gout bilateral feet, carpal tunnel syndrome bilateral wrists, hypothyoid, HTN but only with anxiety, colitis, IBS, chron's, diverticular dx, occasional low blood sugar, nephrolithiasis-pt passed on her own, chronic anemia, lower GI bleed, UTIs."sickle cell" Last Myocardial Infarction Date:: 1989 History of Any Multi-Drug Resistant Organisms: None Reported Past Surgical History: Section, Tubal Ligation Additional Past Surgical History / Comment(s): colonoscopy, 4 c-sections Past Anesthesia/Blood Transfusion Reactions: No Reported Reaction Additional Past Anesthesia/Blood Transfusion Reaction / Comment(s): Pt has received blood in the past and had itching, has had another transfusion since with no reaction. Past Psychological History: Anxiety, Depression Smoking Status: Never smoker Past Alcohol Use History: Rare Past Drug Use History: None Reported - Past Family History Father History Unknown: Yes Additional Family Medical History / Comment(s): Pt was adopted and does not know parents/family medical hx. General Exam Limitations: no limitations General appearance: alert, in no apparent distress, other (This is a well- developed, well-nourished adult female patient in no acute distress. Vital signs upon presentation are temperature 99.0F, pulse 74, respirations 18, blood pressure 151/90, pulse ox 99% on room air.) Eye exam: Present: normal appearance, PERRL, EOMI. Absent: scleral icterus, conjunctival injection, periorbital swelling ENT exam: Present: normal exam, normal oropharynx, mucous membranes moist Respiratory exam: Present: normal lung sounds bilaterally. Absent: respiratory distress, wheezes, rales, rhonchi, stridor Cardiovascular Exam: Present: regular rate, normal rhythm, normal heart sounds. Absent: systolic murmur, diastolic murmur, rubs, gallop, clicks GI/Abdominal exam: Present: soft, normal bowel sounds. Absent: distended, tenderness, guarding, rebound, rigid Neurological exam: Present: alert, oriented X3, CN II-XII intact Psychiatric exam: Present: normal affect, normal mood Skin exam: Present: warm, dry, intact, normal color. Absent: rash Course Vital Signs 06/09/18 06/09/18 14:38 17:57 Temperature 99 F 98.9 F Pulse Rate 74 74 Respiratory 18 20 Rate Blood Pressure 151/90 150/88 O2 Sat by Pulse 99 100 Oximetry Medical Decision Making - Medical Decision Making 48 year-old female patient presented to the emergency department today for evaluation of upper abdominal pain and weakness. Physical examination is relatively unremarkable. Abdomen soft and nontender. Did review previous reports did show the patient has enlarged gallbladder. She was discharged 3 days ago is instructed to follow-up at a tertiary care facility for surgical evaluation as patient is not a surgical candidate at our facility. Patient states she has not yet followed up with these physicians. Labs reviewed and are unremarkable. Patient had no vomiting. Vital signs stable. We'll discharge home to follow-up as she has been directed in the past which is instructed follow up with her primary care physician. Return parameters discussed in detail. She verbalizes understanding and agrees with this plan. - Lab Data Result diagrams: 06/09/18 16:10 06/09/18 16:10 Lab Results 06/09/18 06/09/18 06/09/18 Range/Units 16:10 16:10 16:10 WBC 8.4 (3.8-10.6) k/uL RBC 4.06 (3.80-5.40) m/uL Hgb 10.4 L (11.4-16.0) gm/dL Hct 32.7 L (34.0-46.0) % MCV 80.7 (80.0-100.0) fL MCH 25.6 (25.0-35.0) pg MCHC 31.7 (31.0-37.0) g/dL RDW 15.5 (11.5-15.5) % Plt Count 321 (150-450) k/uL Neutrophils % 64 % Lymphocytes % 23 % Monocytes % 7 % Eosinophils % 3 % Basophils % 1 % Neutrophils # 5.4 (1.3-7.7) k/uL Lymphocytes # 1.9 (1.0-4.8) k/uL Monocytes # 0.6 (0-1.0) k/uL Eosinophils # 0.3 (0-0.7) k/uL Basophils # 0.0 (0-0.2) k/uL Sodium 141 (137-145) mmol/L Potassium 4.2 (3.5-5.1) mmol/L Chloride 104 (98-107) mmol/L Carbon Dioxide 31 H (22-30) mmol/L Anion Gap 6 mmol/L BUN 7 (7-17) mg/dL Creatinine 0.81 (0.52-1.04) mg/dL Est GFR (CKD-EPI)AfAm >90 (>60 ml/min/1.73 sqM) Est GFR (CKD-EPI)NonAf 88 (>60 ml/min/1.73 sqM) Glucose 104 H (74-99) mg/dL Plasma Lactic Acid [place] 0.8 (0.7-2.0) mmol/L Calcium 9.4 (8.4-10.2) mg/dL Total Bilirubin 0.6 (0.2-1.3) mg/dL AST 18 (14-36) U/L ALT 22 (9-52) U/L Alkaline Phosphatase 70 (38-126) U/L Troponin I (0.000-0.034) ng/mL Total Protein 7.5 (6.3-8.2) g/dL Albumin 4.0 (3.5-5.0) g/dL Amylase 42 (30-110) U/L Lipase 76 (23-300) U/L Urine Color Urine Appearance (Clear) Urine pH (5.0-8.0) Ur Specific [place] (1.001-1.035) Urine Protein (Negative) Urine Glucose (UA) (Negative) Urine Ketones (Negative) Urine Blood (Negative) Urine Nitrite (Negative) Urine Bilirubin (Negative) Urine Urobilinogen (<2.0) mg/dL Ur Leukocyte Esterase (Negative) 06/09/18 06/09/18 Range/Units 16:10 16:10 WBC (3.8-10.6) k/uL RBC (3.80-5.40) m/uL Hgb (11.4-16.0) gm/dL Hct (34.0-46.0) % MCV (80.0-100.0) fL MCH (25.0-35.0) pg MCHC (31.0-37.0) g/dL RDW (11.5-15.5) % Plt Count (150-450) k/uL Neutrophils % % Lymphocytes % % Monocytes % % Eosinophils % % Basophils % % Neutrophils # (1.3-7.7) k/uL Lymphocytes # (1.0-4.8) k/uL Monocytes # (0-1.0) k/uL Eosinophils # (0-0.7) k/uL Basophils # (0-0.2) k/uL Sodium (137-145) mmol/L Potassium (3.5-5.1) mmol/L Chloride (98-107) mmol/L Carbon Dioxide (22-30) mmol/L Anion Gap mmol/L BUN (7-17) mg/dL Creatinine (0.52-1.04) mg/dL Est GFR (CKD-EPI)AfAm (>60 ml/min/1.73 sqM) Est GFR (CKD-EPI)NonAf (>60 ml/min/1.73 sqM) Glucose (74-99) mg/dL Plasma Lactic Acid [place] (0.7-2.0) mmol/L Calcium (8.4-10.2) mg/dL Total Bilirubin (0.2-1.3) mg/dL AST (14-36) U/L ALT (9-52) U/L Alkaline Phosphatase (38-126) U/L Troponin I <0.012 (0.000-0.034) ng/mL Total Protein (6.3-8.2) g/dL Albumin (3.5-5.0) g/dL Amylase (30-110) U/L Lipase (23-300) U/L Urine Color Light Yellow Urine Appearance Clear (Clear) Urine pH 7.5 (5.0-8.0) Ur Specific [place] 1.007 (1.001-1.035) Urine Protein Negative (Negative) Urine Glucose (UA) Negative (Negative) Urine Ketones Negative (Negative) Urine Blood Negative (Negative) Urine Nitrite Negative (Negative) Urine Bilirubin Negative (Negative) Urine Urobilinogen <2.0 (<2.0) mg/dL Ur Leukocyte Esterase Negative (Negative) Disposition Clinical Impression: Gallbladder disease Disposition: HOME SELF-CARE Condition: Good Instructions: Abdominal Pain (ED) Additional Instructions: Follow-up with general surgery at [facility] as you have been directed. Return immediately for any new, worsening, or concerning symptoms Is patient prescribed a controlled substance at d/c from ED?: No Referrals: Miki Stewart MD [Primary Care Provider] - 1-2 days Time of Disposition: 17:25
[2018-06-09] MEDS ORDERED: MORPHINE SULFATE 4 MG/ML SYRINGE IVP STA (17:29)
[2018-06-09 17:57] VITALS: BP 150/88; RESP 20; TEMP 98.9
== END 2018-06-09 18:26 | disposition home or self-care (01) ==
LOC: EC 14:32
DX: K82.8 Other specified diseases of gallbladder (principal); K21.9 Gastro-esophageal reflux disease without esophagitis; I10 Essential (primary) hypertension; I25.2 Old myocardial infarction; M19.90 Unspecified osteoarthritis, unspecified site; M06.9 Rheumatoid arthritis, unspecified; M10.9 Gout, unspecified; E66.9 Obesity, unspecified; Z68.45 Body mass index [BMI] 70 or greater, adult; E03.9 Hypothyroidism, unspecified; F32.9 Major depressive disorder, single episode, unspecified; D64.9 Anemia, unspecified; F41.9 Anxiety disorder, unspecified; Z86.711 Personal history of pulmonary embolism; Z79.84 Long term (current) use of oral hypoglycemic drugs; Z79.1 Long term (current) use of non-steroidal anti-inflammatories (NSAID); Z79.899 Other long term (current) drug therapy; Z88.5 Allergy status to narcotic agent; Z88.8 Allergy status to other drugs, medicaments and biological substances; Z91.018 Allergy to other foods
CPT/HCPCS: 36415; 93005; 80053; 82150; 83605; 83690; 84484; 85025; 81003; 99285; 96374; 96375; 96376; 96361; J2270; J2405

== ENCOUNTER 2018-06-20 19:34 | Emergency (ER) | payer MEDICARE, OTHER ==
--- NOTE | 2018-06-20 20:29 | ED ---
Weakness HPI - General Chief complaint: Weakness Stated complaint: weakness Time Seen by Provider: 06/20/18 19:36 Source: patient, EMS, RN notes reviewed, old records reviewed Mode of arrival: EMS Limitations: physical limitation - History of Present Illness Initial comments: This is a 48-year-old female the ER for evaluation. She presents today for evaluation regards to weakness. Not feeling well. Patient states she has a cold. Patient is not participating interview. Patient had EMS called by family is that she may not be responding appropriately. Facility for multiple ER evaluations for multiple different complaints MD Complaint: generalized weakness -: unknown (Patient states she has a cold) Location: generalized Severity: mild Severity scale (1-10): 1 Quality: other (Generalized body pain) Consistency: constant Improves with: none Worsens with: none Context: recent illness Associated Symptoms: denies other symptoms - Related Data Home Medications Medication Instructions Recorded Confirmed Ferrous Sulfate [Iron (65 MG 325 mg PO BID 08/28/14 06/20/18 Elemental)] Prazosin [Minipress] 1 mg PO DAILY 04/24/17 06/20/18 Folic Acid 1 mg PO DAILY 12/01/17 06/20/18 Metoprolol Tartrate [Lopressor] 50 mg PO BID 12/01/17 06/20/18 Diazepam [Valium] 5 mg PO TID 04/05/18 06/20/18 Ergocalciferol (Vitamin D2) 50,000 unit PO MOTH 04/05/18 06/20/18 [Vitamin D2] hydrALAZINE HCL [Apresoline] 10 mg PO TID PRN 04/06/18 06/20/18 metFORMIN HCL ER [Glucophage Xr] 1,000 mg PO HS 04/06/18 06/20/18 Diclofenac Sodium [Voltaren] 75 mg PO BID 04/10/18 06/20/18 HYDROcodone/APAP 10-325MG [[place] 1 tab PO QID PRN 04/10/18 06/20/18 10-325] Escitalopram [Lexapro] 20 mg PO DAILY 04/26/18 06/20/18 DULoxetine HCL [Cymbalta] 60 mg PO DAILY 06/04/18 06/20/18 Levothyroxine Sodium [Synthroid] 75 mcg PO DAILY 06/04/18 06/20/18 Spironolactone 50 mg PO DAILY 06/04/18 06/20/18 Previous Rx's Medication Instructions Recorded Gabapentin [Neurontin] 600 mg PO TID #90 cap 12/06/17 Azithromycin [Zithromax Z-pack] 0 mg PO DIRECTED #1 pack 06/20/18 Allergies Allergy/AdvReac Type Severity Reaction Status Date / Time oxycodone HCl [From Percocet] Allergy Rash/Hives Verified 06/20/18 20:02 procaine HCl [From Novocain] Allergy facial Verified 06/20/18 20:02 swelling strawberry Allergy Rash/Hives Verified 06/20/18 20:02 Review of Systems ROS Statement: Those systems with pertinent positive or pertinent negative responses have been documented in the HPI. ROS Other: All systems not noted in ROS Statement are negative. Past Medical History Past Medical History: GERD/Reflux, GI Bleed, Hypertension, Myocardial Infarction ([place]), Osteoarthritis (OA), Pulmonary Embolus (PE), Renal Disease, Rheumatoid Arthritis (RA), Syncope Additional Past Medical History / Comment(s): Obesity, numbness/tingling bilateral feet, chronic phil leg wound/cellulitis currently healed, previous rt leg ulcers now healed, lower leg edema, chronic low back pain with sciatica, tail bone fracture, migraines, pt states she had toxemia with 1st and had a [place], bilateral tinnitis occasionally, bronchitis, sinus problems, gout bilateral feet, carpal tunnel syndrome bilateral wrists, hypothyoid, HTN but only with anxiety, colitis, IBS, chron's, diverticular dx, occasional low blood sugar, nephrolithiasis-pt passed on her own, chronic anemia, lower GI bleed, UTIs."sickle cell" Last Myocardial Infarction Date:: 1989 History of Any Multi-Drug Resistant Organisms: None Reported Past Surgical History: Section, Tubal Ligation Additional Past Surgical History / Comment(s): colonoscopy, 4 c-sections Past Anesthesia/Blood Transfusion Reactions: No Reported Reaction Additional Past Anesthesia/Blood Transfusion Reaction / Comment(s): Pt has received blood in the past and had itching, has had another transfusion since with no reaction. Past Psychological History: Anxiety, Depression Smoking Status: Never smoker Past Alcohol Use History: Rare Past Drug Use History: None Reported - Past Family History Father History Unknown: Yes Additional Family Medical History / Comment(s): Pt was adopted and does not know parents/family medical hx. General Exam Limitations: physical limitation General appearance: alert, in no apparent distress, obese Head exam: Present: atraumatic, normocephalic, normal inspection Eye exam: Present: normal appearance, PERRL, EOMI. Absent: scleral icterus, conjunctival injection, periorbital swelling ENT exam: Present: normal exam, mucous membranes moist Neck exam: Present: normal inspection. Absent: tenderness, meningismus, lymphadenopathy Respiratory exam: Present: normal lung sounds bilaterally. Absent: respiratory distress, wheezes, rales, rhonchi, stridor Cardiovascular Exam: Present: normal rhythm, tachycardia, normal heart sounds. Absent: systolic murmur, diastolic murmur, rubs, gallop, clicks GI/Abdominal exam: Present: soft, normal bowel sounds. Absent: distended, tenderness, guarding, rebound, rigid Extremities exam: Present: normal inspection, full ROM, normal capillary refill. Absent: tenderness, pedal edema, joint swelling, calf tenderness Back exam: Present: normal inspection Neurological exam: Present: alert, oriented X3, CN II-XII intact Psychiatric exam: Present: normal affect, normal mood Skin exam: Present: warm, dry, intact, normal color. Absent: rash Course Vital Signs 06/20/18 19:39 Temperature 98.4 F Pulse Rate 102 H Respiratory 20 Rate Blood Pressure 147/112 O2 Sat by Pulse 97 Oximetry - Reevaluation(s) Reevaluation #1: 06/20/18 21:11 Record is reviewed Reevaluation #2: 06/20/18 21:11 Patient does have urination over her body in her self. States that she came the ER to get clean Medical Decision Making - Medical Decision Making 48 female to the ED for weakenss, having a cold with cough and congestion, patient pain control. Patient states that she just needs something for pain, she herself, that was approved here in the emergency room. Patient can be discharged Disposition Clinical Impression: Morbid obesity with BMI of 70 and over, adult, Chronic abdominal pain, Weakness , Upper respiratory infection Disposition: HOME SELF-CARE Condition: Fair Instructions: Upper Respiratory Infection (ED) Prescriptions: Azithromycin [Zithromax Z-pack] 0 mg PO DIRECTED #1 pack Is patient prescribed a controlled substance at d/c from ED?: No Referrals: Miik Stewart MD [Primary Care Provider] - 1-2 days
[2018-06-20] MEDS ORDERED: HYDROmorphone 1 MG/ML 1 ML SYRINGE IM STA (20:36)
[2018-06-20] MEDS ORDERED: AZITHROMYCIN 500 MG TAB PO STA (20:36)
[2018-06-20 21:21] VITALS: BP 154/89; PULSE 83; RESP 19; TEMP 98.1
== END 2018-06-20 21:35 | disposition home or self-care (01) ==
LOC: EC 19:34
DX: J06.9 Acute upper respiratory infection, unspecified (principal); R53.1 Weakness; R10.9 Unspecified abdominal pain; G89.29 Other chronic pain; E66.01 Morbid (severe) obesity due to excess calories; Z68.45 Body mass index [BMI] 70 or greater, adult; I10 Essential (primary) hypertension; I25.2 Old myocardial infarction; M19.90 Unspecified osteoarthritis, unspecified site; M06.9 Rheumatoid arthritis, unspecified; E03.9 Hypothyroidism, unspecified; D64.9 Anemia, unspecified; F32.9 Major depressive disorder, single episode, unspecified; F41.9 Anxiety disorder, unspecified; Z86.711 Personal history of pulmonary embolism; Z79.1 Long term (current) use of non-steroidal anti-inflammatories (NSAID); Z79.84 Long term (current) use of oral hypoglycemic drugs; Z79.899 Other long term (current) drug therapy; Z91.018 Allergy to other foods; Z88.4 Allergy status to anesthetic agent; Z88.8 Allergy status to other drugs, medicaments and biological substances
CPT/HCPCS: 99285; 96372; J1170

== ENCOUNTER → 2018-10-01 | Outpatient (CLI) | payer MEDICARE, OTHER | END | disposition home or self-care (01) | LOC: RADECHMAIN 12:56 | PROVIDERS: ATTEND Family Medicine | DX: Z53.9 Procedure and treatment not carried out, unspecified reason (principal) ==

== ENCOUNTER 2018-10-17 09:01 | Observation (INO) | payer MEDICARE, OTHER ==
[2018-10-17] MEDS ORDERED: NITROGLYCERIN OINT 1 INCH/GM PACKET TOPICAL STA (09:17)
[2018-10-17] MEDS ORDERED: ASPIRIN 81 MG PO STA (09:17)
--- NOTE | 2018-10-17 09:21 | ED ---
General Adult HPI - General Chief complaint: Chest Pain Stated complaint: CHEST PAIN Time Seen by Provider: 10/17/18 09:05 Source: patient, EMS, RN notes reviewed Mode of arrival: EMS Limitations: no limitations - History of Present Illness Initial comments: This is a 48-year-old female with past medical history significant for high blood pressure. Patient states she comes in today because she had chest pain on and off for the last 2 days. Patient states she might have been a little short of breath with it and mildly nauseated. Patient states she continues to have chest pain now but is better than it was. Patient states years ago she had a heart attack. Patient denies any smoking. Patient denies diabetes. Patient states she's not able to and has been unable to 2 years. Patient denies any recent fever chills or cough. Patient denies lightheadedness dizziness or near syncopal episode. Patient denies headache patient denies numbness weakness. Patient denies any abdominal pain. Patient has any recent vomiting or diarrhea. - Related Data Home Medications Medication Instructions Recorded Confirmed Ferrous Sulfate [Iron (65 MG 325 mg PO BID 08/28/14 10/17/18 Elemental)] Prazosin [Minipress] 1 mg PO DAILY 04/24/17 10/17/18 Folic Acid 1 mg PO DAILY 12/01/17 10/17/18 Diazepam [Valium] 5 mg PO TID 04/05/18 10/17/18 hydrALAZINE HCL [Apresoline] 10 mg PO TID PRN 04/06/18 10/17/18 metFORMIN HCL ER [Glucophage Xr] 1,000 mg PO HS 04/06/18 10/17/18 Diclofenac Sodium [Voltaren] 75 mg PO BID 04/10/18 10/17/18 HYDROcodone/APAP 10-325MG [[place] 1 tab PO QID PRN 04/10/18 10/17/18 10-325] DULoxetine HCL [Cymbalta] 60 mg PO DAILY 06/04/18 10/17/18 Spironolactone 50 mg PO DAILY 06/04/18 10/17/18 ARIPiprazole [Abilify] 5 mg PO DAILY 10/17/18 10/17/18 Ergocalciferol (Vitamin D2) 50,000 unit PO SUTH 05/01/19 05/01/19 [Drisdol] Escitalopram [Lexapro] 10 mg PO DAILY 10/17/18 10/17/18 Levothyroxine Sodium 100 mcg PO DAILY 10/17/18 10/17/18 Loperamide [Imodium] 4 mg PO DIRECTED 10/17/18 10/17/18 Lorcaserin HCl [Belviq Xr] 20 mg PO DAILY 10/17/18 10/17/18 Metoprolol Tartrate [Lopressor] 25 mg PO BID 10/17/18 10/17/18 Previous Rx's Medication Instructions Recorded Gabapentin [Neurontin] 600 mg PO TID #90 cap 12/06/17 Allergies Allergy/AdvReac Type Severity Reaction Status Date / Time oxycodone HCl [From Percocet] Allergy Rash/Hives Verified 10/17/18 10:42 procaine HCl [From Novocain] Allergy facial Verified 10/17/18 10:42 swelling strawberry Allergy Rash/Hives Verified 10/17/18 10:42 Review of Systems ROS Statement: Those systems with pertinent positive or pertinent negative responses have been documented in the HPI. ROS Other: All systems not noted in ROS Statement are negative. Past Medical History Past Medical History: GERD/Reflux, GI Bleed, Hypertension, Myocardial Infarction ([place]), Osteoarthritis (OA), Pulmonary Embolus (PE), Renal Disease, Rheumatoid Arthritis (RA), Syncope Additional Past Medical History / Comment(s): Obesity, numbness/tingling bilateral feet, chronic phil leg wound/cellulitis currently healed, previous rt leg ulcers now healed, lower leg edema, chronic low back pain with sciatica, tail bone fracture, migraines, pt states she had toxemia with 1st and had a [place], bilateral tinnitis occasionally, bronchitis, sinus problems, gout bilateral feet, carpal tunnel syndrome bilateral wrists, hypothyoid, HTN but only with anxiety, colitis, IBS, chron's, diverticular dx, occasional low blood sugar, nephrolithiasis-pt passed on her own, chronic anemia, lower GI bleed, UTIs."sickle cell" Last Myocardial Infarction Date:: 1989 History of Any Multi-Drug Resistant Organisms: None Reported Past Surgical History: Section, Tubal Ligation Additional Past Surgical History / Comment(s): colonoscopy, 4 c-sections Past Anesthesia/Blood Transfusion Reactions: No Reported Reaction Additional Past Anesthesia/Blood Transfusion Reaction / Comment(s): Pt has received blood in the past and had itching, has had another transfusion since with no reaction. Past Psychological History: Anxiety, Depression Smoking Status: Never smoker Past Alcohol Use History: Rare Past Drug Use History: None Reported - Past Family History Father History Unknown: Yes Additional Family Medical History / Comment(s): Pt was adopted and does not know parents/family medical hx. General Exam - General Exam Comments Initial Comments: GENERAL: Patient is well-developed and well-nourished. Patient is nontoxic and well- hydrated and is in mild distress. ENT: Neck is soft and supple. No significant lymphadenopathy is noted. Oropharynx is clear. Moist mucous membranes. Neck has full range of motion without elici ting any pain. EYES: The sclera were anicteric and conjunctiva were pink and moist. Extraocular movements were intact and pupils were equal round and reactive to light. Eyelids were unremarkable. PULMONARY: Unlabored respirations. Good breath sounds bilaterally. No audible rales rhonchi or wheezing was noted. CARDIOVASCULAR: There is a regular rate and rhythm without any murmurs gallops or rubs. ABDOMEN: Soft and nontender with normal bowel sounds. No palpable organomegaly was noted . There is no palpable pulsatile mass. Patient is morbidly obese SKIN: Skin is clear with no lesions or rashes and otherwise unremarkable. NEUROLOGIC: Patient is alert and oriented x3. Cranial nerves II through XII are grossly intact. Motor and sensory are also intact. Normal speech, volume and content. Symmetrical smile. MUSCULOSKELETAL: Normal extremities with adequate strength and full range of motion. No lower extremity swelling or edema. No calf tenderness. LYMPHATICS: No significant lymphadenopathy is noted PSYCHIATRIC: Normal psychiatric evaluation. Limitations: no limitations Course Vital Signs 10/17/18 09:03 Temperature 98.7 F Pulse Rate 96 Respiratory 20 Rate Blood Pressure 125/102 O2 Sat by Pulse 100 Oximetry Medical Decision Making - Medical Decision Making EKG shows normal sinus rhythm at 87 bpm MD interval is 152 QRS is 92 QT interval 374 QTC is 450. Patient's EKG shows no ST segment elevation or depression or T wave abnormalities are noted. Chest x-ray shows no acute abnormality. Patient's chest pain had resolved in the emergency department. - Lab Data Result diagrams: 10/17/18 10:50 10/17/18 09:36 Lab Results 10/17/18 10/17/1810/17/19 Range/Units 09:36 09:36 10:50 WBC 10.6 (3.8-10.6) k/uL RBC 4.18 (3.80-5.40) m/uL Hgb 10.7 L (11.4-16.0) gm/dL Hct 33.0 L (34.0-46.0) % MCV 79.0 L (80.0-100.0) fL MCH 25.7 (25.0-35.0) pg MCHC 32.5 (31.0-37.0) g/dL RDW 15.4 (11.5-15.5) % Plt Count 344 (150-450) k/uL Neutrophils % 63 % Lymphocytes % 29 % Monocytes % 4 % Eosinophils % 3 % Basophils % 0 % Neutrophils # 6.7 (1.3-7.7) k/uL Lymphocytes # 3.0 (1.0-4.8) k/uL Monocytes # 0.4 (0-1.0) k/uL Eosinophils # 0.3 (0-0.7) k/uL Basophils # 0.0 (0-0.2) k/uL Hypochromasia Slight PT (9.0-12.0) sec INR (<1.2) APTT (22.0-30.0) sec Sodium 142 (137-145) mmol/L Potassium 4.0 (3.5-5.1) mmol/L Chloride 103 (98-107) mmol/L Carbon Dioxide 32 H (22-30) mmol/L Anion Gap 7 mmol/L BUN 13 (7-17) mg/dL Creatinine 0.82 (0.52-1.04) mg/dL Est GFR (CKD-EPI)AfAm >90 (>60 ml/min/1.73 sqM) Est GFR (CKD-EPI)NonAf 86 (>60 ml/min/1.73 sqM) Glucose 112 H (74-99) mg/dL Calcium 9.4 (8.4-10.2) mg/dL Magnesium 1.9 (1.6-2.3) mg/dL Total Bilirubin 0.4 (0.2-1.3) mg/dL AST 12 L (14-36) U/L ALT 16 (9-52) U/L Alkaline Phosphatase 83 (38-126) U/L Troponin I <0.012 (0.000-0.034) ng/mL NT-Pro-B Natriuret Pep pg/mL Total Protein 7.9 (6.3-8.2) g/dL Albumin 4.2 (3.5-5.0) g/dL 10/17/18 10/17/18 Range/Units 10:50 10:51 WBC (3.8-10.6) k/uL RBC (3.80-5.40) m/uL Hgb (11.4-16.0) gm/dL Hct (34.0-46.0) % MCV (80.0-100.0) fL MCH (25.0-35.0) pg MCHC (31.0-37.0) g/dL RDW (11.5-15.5) % Plt Count (150-450) k/uL Neutrophils % % Lymphocytes % % Monocytes % % Eosinophils % % Basophils % % Neutrophils # (1.3-7.7) k/uL Lymphocytes # (1.0-4.8) k/uL Monocytes # (0-1.0) k/uL Eosinophils # (0-0.7) k/uL Basophils # (0-0.2) k/uL Hypochromasia PT 9.8 (9.0-12.0) sec INR 0.9 (<1.2) APTT 25.1 (22.0-30.0) sec Sodium (137-145) mmol/L Potassium (3.5-5.1) mmol/L Chloride (98-107) mmol/L Carbon Dioxide (22-30) mmol/L Anion Gap mmol/L BUN (7-17) mg/dL Creatinine (0.52-1.04) mg/dL Est GFR (CKD-EPI)AfAm (>60 ml/min/1.73 sqM) Est GFR (CKD-EPI)NonAf (>60 ml/min/1.73 sqM) Glucose (74-99) mg/dL Calcium (8.4-10.2) mg/dL Magnesium (1.6-2.3) mg/dL Total Bilirubin (0.2-1.3) mg/dL AST (14-36) U/L ALT (9-52) U/L Alkaline Phosphatase (38-126) U/L Troponin I (0.000-0.034) ng/mL NT-Pro-B Natriuret Pep <11 pg/mL Total Protein (6.3-8.2) g/dL Albumin (3.5-5.0) g/dL Disposition Clinical Impression: Chest pain Disposition: ADMITTED IP TO THIS HOSP Referrals: Miki Stewart MD [Primary Care Provider] - 1-2 days Time of Disposition: 12:06
--- NOTE | 2018-10-17 10:20 | XR ---
EXAMINATION TYPE: XR chest 2V DATE OF EXAM: 10/17/2018 COMPARISON: Chest x-ray March 01, 2018. CT chest December 28, 2017. HISTORY: Chest pain and shortness of breath. TECHNIQUE: Frontal and lateral views of the chest are obtained. FINDINGS: Lateral view is essentially nondiagnostic due to patient's large body habitus. Overlying EK G leads are seen on current study. There is no focal air space opacity, pleural effusion, or pneumoth orax seen. The cardiac silhouette size is stable and upper limits of normal. Degenerative change rig ht glenohumeral joint is noted. IMPRESSION: Suboptimal study without acute cardiopulmonary process visualized.
[2018-10-17 10:21] LABS: ALT 16 U/L (9-52); AST 12 U/L (14-36); Albumin 4.2 g/dL (3.5-5.0); Alkaline Phosphatase 83 U/L (38-126); Anion Gap 7 mmol/L; Blood Urea Nitrogen 13 mg/dL (7-17); Calcium 9.4 mg/dL (8.4-10.2); Carbon Dioxide 32 mmol/L (22-30); Chloride 103 mmol/L (98-107); Glucose 112 mg/dL (74-99); Magnesium 1.9 mg/dL (1.6-2.3); Sodium 142 mmol/L (137-145); Total Bilirubin 0.4 mg/dL (0.2-1.3); Total Protein 7.9 g/dL (6.3-8.2)
[2018-10-17 11:05] LABS: Basophils % (A) 0 %; Eosinophils # (A) 0.3 k/uL (0-0.7); Eosinophils % (A) 3 %; HGB 10.7 gm/dL (11.4-16.0); Hypochromasia Slight; Lymphocytes % (A) 29 %; MCH 25.7 pg (25.0-35.0); MCHC 32.5 g/dL (31.0-37.0); Mean Platelet Volume 6.7; Monocytes # (A) 0.4 k/uL (0-1.0); Monocytes % (A) 4 %; Neutrophils # (A) 6.7 k/uL (1.3-7.7); Neutrophils % (A) 63 %; Platelet Count 344 k/uL (150-450); RBC 4.18 m/uL (3.80-5.40); RDW 15.4 % (11.5-15.5); WBC 10.6 k/uL (3.8-10.6)
[2018-10-17 11:11] LABS: INR 0.9 (<1.2); Partial Thromboplastin Time 25.1 sec (22.0-30.0); Prothrombin Time 9.8 sec (9.0-12.0)
[2018-10-17] MEDS ORDERED: NITROGLYCERIN SL TABS 0.4 MG TAB SUBLINGUAL PRN (12:08)
[2018-10-17] MEDS ORDERED: hydrALAZINE HCL 10 MG TAB PO PRN (15:33)
--- NOTE | 2018-10-17 15:38 | P.HPIM ---
History of Present Illness H&P Date: 10/17/18 Patient is a 48-year-old female with a PMH of morbid obesity, hypertension, ?[place] (patient reports that she developed fluid overload during her first she was 19, and was told that she might have had a heart attack then, with no subsequent MIs), gallbladder dysfunction, bedbound due to phil knee OA, multiple admissions for vague abdominal pain, presented to the ED with complaints of left-sided abdominal pain, occurring intermittently over the past few days to weeks. The patient notes that she's had this pain for the past few years, no specific inciting or alleviating factors, with no relationship to exertion. At time of interview, she reports that her pain was a 2 out of 10, nonradiating, deep in the left upper quadrant, sharp/pressure like. Patient notes the pain is similar to the pain on her previous presentations. She also endorsed an epigastric/R sided substernal pain somewhat pleuritic in nature, non-exertional. She otherwise denied palpitations, nausea, or vomiting. She further denied fever, chills, cough, or diarrhea. Of note, the patient was evaluated by surgery (Dr. Zavaleta) on 06/05/18 and 04/13/18, and deemed to not be a surgical candidate for her gall-bladder dysfunction. She was further advised to follow-up with a tertiary care center. The patient underwent an an extensive evaluation in the ED w/ Troponin < 0.012, BNP < 11, CXR unremarkable, EKG showing NSR @ 87 bpm w/ no acute ST-T wave changes, WBC 10.6, BUN 13, and Cr 0.82. THe patient was admitted to the medicine service under observation for abdominal pain. Review of Systems Pertinent positives and negatives as discussed in HPI, a complete review of systems was performed and all other systems are negative. Past Medical History Past Medical History: GERD/Reflux, GI Bleed, Hypertension, Myocardial Infarction ([place]), Osteoarthritis ([place]), Pulmonary Embolus ([place]), Renal Disease, Rheumatoid Arthritis (RA), Syncope Additional Past Medical History / Comment(s): Obesity, numbness/tingling bilateral feet, chronic phil leg wound/cellulitis currently healed, previous rt leg ulcers now healed, lower leg edema, chronic low back pain with sciatica, tail bone fracture, bedbound, migraines, pt states she had toxemia with 1st and had a [place], bilateral tinnitis occasionally, bronchitis, sinus problems, gout bilateral feet, carpal tunnel syndrome bilateral wrists, hypothyoid, HTN but only with anxiety, colitis, IBS, chron's, diverticular dx, occasional low blood sugar, chronic anemia, lower GI bleed, UTIs,"sickle cell" trait, pt has fatty umbilical hernia and hydropic gallbladder-was to f/u at [facility] but has been unable to get there. Last Myocardial Infarction Date:: 1989 History of Any Multi-Drug Resistant Organisms: None Reported Past Surgical History: Section, Tubal Ligation Additional Past Surgical History / Comment(s): colonoscopy, 4 c-sections Past Anesthesia/Blood Transfusion Reactions: No Reported Reaction Additional Past Anesthesia/Blood Transfusion Reaction / Comment(s): Pt has received blood in the past and had itching, has had another transfusion since with no reaction. Smoking Status: Never smoker - Past Family History Father History Unknown: Yes Additional Family Medical History / Comment(s): Pt was adopted and does not know parents/family medical hx. Medications and Allergies Home Medications Medication Instructions Recorded Confirmed Type Ferrous Sulfate [Iron (65 MG 325 mg PO BID 08/28/14 10/17/18 History Elemental)] Prazosin [Minipress] 1 mg PO DAILY 04/24/17 10/17/18 History Folic Acid 1 mg PO DAILY 12/01/17 10/17/18 History Gabapentin [Neurontin] 600 mg PO TID #90 cap 12/06/17 10/17/18 Rx Diazepam [Valium] 5 mg PO TID 04/05/18 10/17/18 History hydrALAZINE HCL [Apresoline] 10 mg PO TID PRN 04/06/18 10/17/18 History metFORMIN HCL ER [Glucophage Xr] 1,000 mg PO HS 04/06/18 10/17/18 History Diclofenac Sodium [Voltaren] 75 mg PO BID 04/10/18 10/17/18 History HYDROcodone/APAP 10-325MG [[place] 1 tab PO QID PRN 04/10/18 10/17/18 History 10-325] DULoxetine HCL [Cymbalta] 60 mg PO DAILY 06/04/18 10/17/18 History Spironolactone 50 mg PO DAILY 06/04/18 10/17/18 History ARIPiprazole [Abilify] 5 mg PO DAILY 10/17/18 10/17/18 History Ergocalciferol (Vitamin D2) 50,000 unit PO SUTH 10/17/18 10/17/18 History [Drisdol] Escitalopram [Lexapro] 10 mg PO DAILY 10/17/18 10/17/18 History Levothyroxine Sodium 100 mcg PO DAILY 10/17/18 10/17/18 History Loperamide [Imodium] 4 mg PO DIRECTED 10/17/18 10/17/18 History Lorcaserin HCl [Belviq Xr] 20 mg PO DAILY 10/17/18 10/17/18 History Metoprolol Tartrate [Lopressor] 25 mg PO BID 10/17/18 10/17/18 History Allergies Allergy/AdvReac Type Severity Reaction Status Date / Time oxycodone HCl [From Percocet] Allergy Rash/Hives Verified 10/17/18 10:42 procaine HCl [From Novocain] Allergy facial Verified 10/17/18 10:42 swelling strawberry Allergy Rash/Hives Verified 10/17/18 10:42 Physical Exam Vitals: Vital Signs Temp Pulse Pulse Resp BP BP Pulse Ox 10/17/18 13:05 98.5 F 96 18 122/73 100 10/17/18 12:07 98 18 142/90 100 10/17/18 09:03 98.7 F 96 20 125/102 100 Intake and Output 10/16/18 10/17/18 10/17/18 22:59 06:59 14:59 Other: Voiding Method Bedpan Weight 197.313 kg General: non toxic, no distress, appears older than stated age, morbidly obese Derm: no unusual rashes/lesions no unusual ecchymoses, warm, dry Head: atraumatic, normocephalic, symmetric Eyes: EOMI, no lid lag, anicteric sclera, pupils equal round reactive to light ENT: Nose and ears atraumatic, no thrush, no pharyngeal erythema Neck: No thyromegaly, no cervical lymphadenopathy, trachea midline, supple Mouth: no lip lesion, mucus membranes moist Cardiovascular: S1S2 reg, no murmur, positive posterior tibial pulse bilateral, no edema, capillary refill less than 2 seconds Lungs: CTA bilateral, no rhonchi, no rales , no accessory muscle use Abdominal: soft, nontender to palpation, no guarding, no appreciable organomegaly, normal bowel sounds Ext: no gross muscle atrophy, muscle strength 5 out of 5 in all 4 extremities grossly, no contractures, Neuro: CN II-XI grossly intact, light touch intact all 4 extremities, finger to nose within normal limits, Psych: Alert, oriented, appropriate affect Results CBC & Chem 7: 10/17/18 10:50 10/17/18 09:36 Labs: Abnormal Lab Results - Last 24 Hours (Table) 10/17/18 10/17/18 Range/Units 09:36 10:50 Hgb 10.7 L (11.4-16.0) gm/dL Hct 33.0 L (34.0-46.0) % MCV 79.0 L (80.0-100.0) fL Carbon Dioxide 32 H (22-30) mmol/L Glucose 112 H (74-99) mg/dL AST 12 L (14-36) U/L Thrombosis Risk Factor Assmnt - Choose All That Apply Any of the Below Risk Factors Present?: Yes Each Factor Represents 1 point: Age 41-60 years, Medical pt on bed rest, Obesity (BMI >25) Other Risk Factors: Yes Each Risk Factor Represents 2 Points: Patient confined to bed Other congenital or acquired thrombophilia - If yes, enter type in comment: No Thrombosis Risk Factor Assessment Total Risk Factor Score: 5 Thrombosis Risk Factor Assessment Level: High Risk Assessment and Plan Plan: Chest pain, r/o ACS -Cardiology consulted -Cardiac monitoring -Trend troponin L sided chronic abdominal pain -Previously evaluated by the surgery service -Will c/w pain control w/ [place] 10 Chronic conditions: HTN, hypothyroidi -Resume home meds DVT prophylaxis -Heparin The patient is admitted with an anticipated less than 2 midnight stay for evaluation of chest pain. CODE STATUS:Full Code Discussed with: Patient Anticipated discharge date: 10/18/[address]: Home A total of 40 minutes was spent on the care of this complex patient more than 50% of the time was spent in counseling and care coordination.
[2018-10-17] MEDS ORDERED: LOPERAMIDE 2 MG CAP PO PRN (15:45)
[2018-10-17] MEDS: HEPARIN SODIUM,PORCINE 5,000 UNIT/ML 1 ML VIAL SQ SCH (16:45)
[2018-10-17] MEDS: GABAPENTIN 300 MG CAP PO SCH ×2 (16:45→21:39)
[2018-10-17] MEDS: HYDROcodone/APAP 10-325MG 1 EACH TAB PO PRN ×2 (16:45→22:49)
[2018-10-17] MEDS: DIAZEPAM 5 MG TAB PO SCH ×2 (16:45→21:30)
[2018-10-17] MEDS: NITROGLYCERIN OINT 1 INCH/GM PACKET TOPICAL SCH (16:46)
[2018-10-17] MEDS: METOPROLOL TARTRATE 25 MG TAB PO SCH (21:30)
[2018-10-18] MEDS: NITROGLYCERIN OINT 1 INCH/GM PACKET TOPICAL SCH ×2 (01:03→05:45)
[2018-10-18] MEDS: HEPARIN SODIUM,PORCINE 5,000 UNIT/ML 1 ML VIAL SQ SCH ×3 (04:11→17:14)
[2018-10-18] MEDS: LEVOTHYROXINE 100 MCG TAB PO SCH (05:49)
[2018-10-18] MEDS: HYDROcodone/APAP 10-325MG 1 EACH TAB PO PRN ×2 (05:49→17:14)
[2018-10-18 07:35] LABS: Cholesterol 157 mg/dL (<200); HDL Cholesterol 56 mg/dL (40-60); LDL Cholesterol,Calculated 76 mg/dL (0-99); Triglycerides 127 mg/dL (<150)
[2018-10-18] MEDS: METOPROLOL TARTRATE 25 MG TAB PO SCH ×2 (08:52→20:42)
[2018-10-18] MEDS: ESCITALOPRAM 10 MG TAB PO SCH (08:52)
[2018-10-18] MEDS: SPIRONOLACTONE 25 MG TAB PO SCH (08:52)
[2018-10-18] MEDS: ARIPiprazole 5 MG TAB PO SCH (08:53)
[2018-10-18] MEDS: FOLIC ACID 1 MG TAB PO SCH (08:53)
[2018-10-18] MEDS: DULoxetine HCL 60 MG CAPSULE.DR PO SCH (08:53)
[2018-10-18] MEDS: PRAZOSIN 1 MG CAP PO SCH (08:53)
[2018-10-18] MEDS: DIAZEPAM 5 MG TAB PO SCH ×3 (08:53→23:13)
[2018-10-18] MEDS: GABAPENTIN 300 MG CAP PO SCH ×3 (08:53→20:42)
[2018-10-18] MEDS ORDERED: ASPIRIN 325 MG TAB PO SCH (09:00)
--- NOTE | 2018-10-18 10:57 | P.CRDCN ---
History of Present Illness History of present illness: This is a pleasant 48 showed -[place] female past medical history significant for hypertension, gastroesophageal reflux disease, rheumatoid arthritis and morbid obesity. She states 20+ years ago during she suffered an acute myocardial infarction in the presence of toxemia. She denies having any stents placed. She does not follow regularly with a heart doctor for any reason. We've asked to see her in consultation for chest discomfort. She states since Monday she has been feeling a discomfort in the left upper abdomen under her left breast. It is a very sharp pain that is reproducible on palpation. The pain is worse when she takes in a deep breath. There is no specific alleviating factor. She denies associated nausea, vomiting, shortness of breath, dizziness or palpitations. EKG reveals sinus mechanism with no acute ST or T wave abnormalities noted. Chest x-ray is negative for an acute cardiopulmonary process. Laboratory data reviewed, WBC 10.6, hemoglobin 10.7, platelets 344, d-dimer 0.62, sodium 142. Potassium 4.0, creatinine 0.82, magnesium 1.9, cardiac enzymes negative 3, and T proBNP less than 11, LDL 76 HDL 56. Current cardiac medications include lopressor 25 mg BID, prazosin 1 mg daily, Aldactone 50 mg daily, hydralazine 10 mg 3 times a day as needed. Most recent echocardiogram performed February 2018 reveals preserved left ventricular systolic function with ejection fraction 55-60%. At the time of my exam: CONSTITUTIONAL: Denies fever. Denies chills. EYES: Denies blurred vision. Denies vision changes. Denies eye pain. EARS, NOSE, MOUTH & THROAT: Denies headache. Denies sore throat. Denies ear pain. CARDIOVASCULAR: Denies chest pain. Denies shortness of breath. Denies orthopnea. Denies PND. Denies palpitations. RESPIRATORY: Denies cough. GASTROINTESTINAL: Denies abdominal pain. Denies diarrhea. Denies constipation. Denies nausea. Denies vomiting. MUSCULOSKELETAL: Denies myalgias. INTEGUMENTARY: Denies pruitis. Denies rash. NEUROLOGIC: Denies numbness. Denies tingling. Denies weakness. PSYCHIATRIC: Denies anxiety. Denies depression. ENDOCRINE: Denies fatigue. Denies weight change. Denies polydipsia. Denies polyurina. GENITOURINARY: Denies burning, hematuria or urgency with micturation. HEMATOLOGIC: Denies history of anemia. Denies bleeding. Blood pressure 111/87 heart rate 91 afebrile maintaining oxygen saturation on room air GENERAL: This is a 48-year-old -[place] female in no apparent distress at the time of my examination. Morbidly obese. HEENT: Head is atraumatic, normocephalic. Pupils are equal, round. Sclerae anicteric. Conjunctivae are clear. Mucous membranes of the mouth are moist. Neck is supple. There is no jugular venous distention. No carotid bruit is heard. LUNGS: Clear to auscultation no wheezes, rales or rhonchi. No chest wall tenderness is noted on palpation or with deep breathing. HEART: Regular rate and rhythm without murmurs, rubs or gallops. S1 and S2 heard. ABDOMEN: Soft, mild reproducible tenderness nor left upper quadrant. Bowel sounds are heard. No organomegaly noted. EXTREMITIES: No evidence of peripheral edema and no calf tenderness noted. VASCULAR: Radial and dorsalis pedis pulses palpated, no evidence of clubbing. NEUROLOGIC: Patient is awake, alert and oriented x3. ASSESSMENT Left upper quadrant abdominal discomfort. No symptoms of angina. An acute coronary event has been ruled out. Hypertension Morbid obesity, BMI 72 History of pulmonary embolism in the past Arthritis PLAN An acute coronary event has been ruled out. Symptoms are not suggestive of angina and are more related to an abdominal discomfort. Further evaluation per primary care team. We will continue to follow as needed. Thank you kindly for this consultation. Nurse Practitioner note has been reviewed, I agree with a documented findings and plan of care. Patient was seen and examined. Past Medical History Past Medical History: GERD/Reflux, GI Bleed, Hypertension, Myocardial Infarction ([place]), Osteoarthritis (OA), Pulmonary Embolus (PE), Renal Disease, Rheumatoid Arthritis (RA), Syncope Additional Past Medical History / Comment(s): Obesity, numbness/tingling bilateral feet, chronic phil leg wound/cellulitis currently healed, previous rt leg ulcers now healed, lower leg edema, chronic low back pain with sciatica, tail bone fracture, bedbound, migraines, pt states she had toxemia with 1st and had a ND, bilateral tinnitis occasionally, bronchitis, sinus problems, gout bilateral feet, carpal tunnel syndrome bilateral wrists, hypothyoid, HTN but only with anxiety, colitis, IBS, chron's, diverticular dx, occasional low blood sugar, chronic anemia, lower GI bleed, UTIs,"sickle cell" trait, pt has fatty umbilical hernia and hydropic gallbladder-was to f/u at [facility] but has been unable to get there. Last Myocardial Infarction Date:: 1989 History of Any Multi-Drug Resistant Organisms: None Reported Past Surgical History: Section, Tubal Ligation Additional Past Surgical History / Comment(s): colonoscopy, 4 c-sections Past Anesthesia/Blood Transfusion Reactions: No Reported Reaction Additional Past Anesthesia/Blood Transfusion Reaction / Comment(s): Pt has received blood in the past and had itching, has had another transfusion since with no reaction. Smoking Status: Never smoker - Past Family History Father History Unknown: Yes Additional Family Medical History / Comment(s): Pt was adopted and does not know parents/family medical hx. Medications and Allergies Home Medications Medication Instructions Recorded Confirmed Type Ferrous Sulfate [Iron (65 MG 325 mg PO BID 08/28/14 10/17/18 History Elemental)] Prazosin [Minipress] 1 mg PO DAILY 04/24/17 10/17/18 History Folic Acid 1 mg PO DAILY 12/01/17 10/17/18 History Gabapentin [Neurontin] 600 mg PO TID #90 cap 12/06/17 10/17/18 Rx Diazepam [Valium] 5 mg PO TID 04/05/18 10/17/18 History hydrALAZINE HCL [Apresoline] 10 mg PO TID PRN 04/06/18 10/17/18 History metFORMIN HCL ER [Glucophage Xr] 1,000 mg PO HS 04/06/18 10/17/18 History Diclofenac Sodium [Voltaren] 75 mg PO BID 04/10/18 10/17/18 History HYDROcodone/APAP 10-325MG [[place] 1 tab PO QID PRN 04/10/18 10/17/18 History 10-325] DULoxetine HCL [Cymbalta] 60 mg PO DAILY 06/04/18 10/17/18 History Spironolactone 50 mg PO DAILY 06/04/18 10/17/18 History ARIPiprazole [Abilify] 5 mg PO DAILY 10/17/18 10/17/18 History Ergocalciferol (Vitamin D2) 50,000 unit PO SUTH 10/17/18 10/17/18 History [Drisdol] Escitalopram [Lexapro] 10 mg PO DAILY 10/17/18 10/17/18 History Levothyroxine Sodium 100 mcg PO DAILY 10/17/18 10/17/18 History Loperamide [Imodium] 4 mg PO DIRECTED 10/17/18 10/17/18 History Lorcaserin HCl [Belviq Xr] 20 mg PO DAILY 10/17/18 10/17/18 History Metoprolol Tartrate [Lopressor] 25 mg PO BID 10/17/18 10/17/18 History Allergies Allergy/AdvReac Type Severity Reaction Status Date / Time oxycodone HCl [From Percocet] Allergy Rash/Hives Verified 10/17/18 10:42 procaine HCl [From Novocain] Allergy facial Verified 10/17/18 10:42 swelling strawberry Allergy Rash/Hives Verified 10/17/18 10:42 Physical Exam Vitals: Vital Signs Temp Pulse Pulse Resp BP BP BP 10/18/18 07:15 98.2 F 91 18 111/87 10/18/18 04:00 18 10/18/18 03:22 98 F 97 18 110/69 10/18/18 00:00 97.6 F 91 18 119/87 10/17/18 20:00 98.2 F 103 H 18 121/79 10/17/18 16:45 10/17/18 15:44 98.6 F 102 H 18 140/71 10/17/18 13:05 98.5 F 96 18 122/73 10/17/18 12:07 98 18 142/90 10/17/18 09:03 98.7 F 96 20 125/102 Pulse Ox 10/18/18 07:15 93 L 10/18/18 04:00 10/18/18 03:22 96 10/18/18 00:00 96 10/17/18 20:00 94 L 10/17/18 16:45 97 10/17/18 15:44 94 L 10/17/18 13:05 100 10/17/18 12:07 100 10/17/18 09:03 100 Intake and Output 10/17/18 10/18/18 10/18/18 22:59 06:59 14:59 Other: Voiding Method Bedpan Bedpan # Voids 1 Results 10/17/18 10:50 10/17/18 09:36 Cardiac Enzymes 10/17/18 10/17/18 10/17/18 Range/Units 09:36 09:36 15:07 AST 12 L (14-36) U/L Troponin I <0.012 <0.012 (0.000-0.034) ng/mL 10/17/18 Range/Units 21:23 AST (14-36) U/L Troponin I <0.012 (0.000-0.034) ng/mL Coagulation 10/17/18 Range/Units 10:50 PT 9.8 (9.0-12.0) sec APTT 25.1 (22.0-30.0) sec Lipids 10/17/18 Range/Units 09:36 Triglycerides 127 (<150) mg/dL Cholesterol 157 (<200) mg/dL HDL Cholesterol 56 (40-60) mg/dL CBC 10/17/18 Range/Units 10:50 WBC 10.6 (3.8-10.6) k/uL RBC 4.18 (3.80-5.40) m/uL Hgb 10.7 L (11.4-16.0) gm/dL Hct 33.0 L (34.0-46.0) % Plt Count 344 (150-450) k/uL Comprehensive Metabolic Panel 10/17/18 Range/Units 09:36 Sodium 142 (137-145) mmol/L Potassium 4.0 (3.5-5.1) mmol/L Chloride 103 (98-107) mmol/L Carbon Dioxide 32 H (22-30) mmol/L BUN 13 (7-17) mg/dL Creatinine 0.82 (0.52-1.04) mg/dL Glucose 112 H (74-99) mg/dL Calcium 9.4 (8.4-10.2) mg/dL AST 12 L (14-36) U/L ALT 16 (9-52) U/L Alkaline Phosphatase 83 (38-126) U/L Total Protein 7.9 (6.3-8.2) g/dL Albumin 4.2 (3.5-5.0) g/dL Current Medications Generic Name Dose Route Start Last Admin Trade Name Freq PRN Reason Stop Dose Admin Hydrocodone Bitart/Acetaminophen 1 each 10/17/18 15:33 10/18/18 05:49 [place] 10 PO 1 each QID PRN Administration Moderate Pain Aripiprazole 5 mg 10/18/18 09:00 Abilify PO DAILY [facility] Aspirin 325 mg 10/18/18 09:00 Aspirin PO DAILY [facility] Diazepam 5 mg 10/17/18 16:00 10/17/18 21:30 Valium PO 5 mg TID [facility] Administration Duloxetine HCl 60 mg 10/18/18 09:00 Cymbalta PO DAILY [facility] Escitalopram Oxalate 10 mg 10/18/18 09:00 Lexapro PO DAILY [facility] Folic Acid 1 mg 10/18/18 09:00 Folic Acid PO DAILY [facility] Gabapentin 600 mg 10/17/18 16:00 10/17/18 21:39 Neurontin PO 600 mg TID [facility] Administration Heparin Sodium (Porcine) 5,000 unit 10/17/18 16:00 10/18/18 04:11 Heparin SQ Not Given Q8HR [facility] Hydralazine HCl 10 mg 10/17/18 15:33 Apresoline PO TID PRN Blood Pressure - SBP >150 Levothyroxine Sodium 100 mcg 10/18/18 06:30 10/18/18 05:49 Synthroid PO 100 mcg DAILY@0630 [facility] Administration Loperamide HCl 4 mg 10/17/18 15:45 Imodium PO BID PRN Loose stools Metoprolol Tartrate 25 mg 10/17/18 21:00 10/17/18 21:30 Lopressor PO 25 mg BID [facility] Administration Nitroglycerin 1 inch 10/17/18 18:00 10/18/18 05:45 Nitro-Bid Oint TOPICAL Not Given Q6HR [facility] Nitroglycerin 0.4 mg 10/17/18 12:08 Nitrostat SUBLINGUAL Q5M PRN Chest Pain Lorcaserin Hcl [ 20 mg 10/18/18 09:00 Belviq Xr] PO DAILY [facility] Prazosin HCl 1 mg 10/18/18 09:00 Minipress PO DAILY [facility] Spironolactone 50 mg 10/18/18 09:00 Aldactone PO DAILY [facility] Intake and Output 10/17/18 10/18/18 10/18/18 22:59 06:59 14:59 Other: Voiding Method Bedpan Bedpan # Voids 1 10/17/18 10:50 10/17/18 09:36
[2018-10-18] MEDS: [UNRECOGNIZED DRUG - OTHER] PO SCH (10:59)
--- NOTE | 2018-10-18 12:14 | CT ---
EXAMINATION TYPE: CT abdomen pelvis w con DATE OF EXAM: 10/18/2018 COMPARISON: 06/05/2018 INDICATION: Chest pain. LUQ Pain. Left flank pain DLP: 4259 mGycm, Automated exposure control for dose reduction was used. CONTRAST: 100 ml mL of Isovue 300. Study performed without Oral Contrast TECHNIQUE: Axial images were obtained from above the diaphragm to the pubic rami in the axial plane a t 5 mm thick sections. Reconstructed images are reviewed on the computer in the coronal plane. FINDINGS: Limited CT sections are obtained the lung bases. The lung bases are clear. CT ABDOMEN: Liver: Normal Spleen: Normal Pancreas: Normal Adrenal glands: The adrenal glands are normal. Gallbladder: Normal Kidneys: No masses are evident. No hydronephrosis is present. No cysts are present. No renal stone s are identified. Aorta: Normal Inferior vena cava: Normal. CT PELVIS: Loops of bowel within the abdomen and pelvis are normal. Study is performed without oral contrast limiting bowel evaluation. Appendix: Normal as visualized. Urinary bladder: Normal. Genitourinary structures: Uterus appears unremarkable. Adnexal regions are clear. Osseous structures: No suspicious lytic or sclerotic lesions. Degenerative changes are at sacroiliac joints and lower facets of the lumbar spine IMPRESSIONS: 1. No suspicious acute changes
--- NOTE | 2018-10-18 14:46 | P.PN ---
Subjective Progress Note Date: 10/18/18 Patient was seen and examined at the bedside on 10/18/2018. She continues to complain of left upper quadrant significant pain with no associated symptoms. She notes that the pain is a 7 out of 10, nonradiating, constant. She otherwise denied nausea, shortness of breath, palpitations, fever, or chills. Objective - Vital Signs Vital signs: Vital Signs Temp 97.9 F 10/18/18 11:39 Pulse 93 10/18/18 12:00 Resp 20 10/18/18 12:00 BP 121/58 10/18/18 11:39 Pulse Ox 94 L 10/18/18 11:39 Intake & Output 10/17/18 10/18/18 10/18/18 18:59 06:59 18:59 Intake Total 200 Balance 200 Weight 197.313 kg Intake: Other 200 Other: Voiding Method Bedpan Bedpan Bedpan # Voids 1 - Exam General: Non-toxic, in no acute distress, appears older than stated age, morbidly obese HEENT: NC/AT, anicteric sclerae, moist conjunctiva, no lid-lag, PERRLA Cardiovascular: S1/S2 wnl, no murmurs, rubs, or gallops Lungs: Clear to auscultation, normal respiratory effort, no accessory muscle use Abdominal: Soft, mild LUQ tenderness to palpation, non-distended, no guarding, rebound, or rigidity Skin: Warm, dry Extremities: No edema or contractures Psychiatric: Alert and oriented to person, place and time, appropriate affect Neuro: CN II-XII grossly intact, Strength 5/5 in all 4 extremities, Speech intact, Sensation to light touch grossly intact throughout - Labs CBC & Chem 7: 10/17/18 10:50 10/17/18 09:36 Labs: Abnormal Lab Results - Last 24 Hours (Table) 10/18/18 Range/Units 08:23 D-Dimer 0.62 H (<0.60) mg/L FEU Assessment and Plan Plan: L sided chronic abdominal pain -Previously evaluated by the surgery service -Will c/w pain control w/ [place] 10 -CT abd/pelvis w/ contrast unremarkable -Will consult GI due to the intractable nature of pain Chest pain, ACS ruled out -Cardiology recommendation appreciated Chronic conditions: HTN, hypothyroidism -Resume home meds DVT prophylaxis -Heparin Discussed with: Patient Anticipated discharge date: 10/19/[address]: Home A total of 35 minutes was spent on the care of this complex patient more than 50% of the time was spent in counseling and care coordination.
[2018-10-19] MEDS: HEPARIN SODIUM,PORCINE 5,000 UNIT/ML 1 ML VIAL SQ SCH ×3 (03:04→17:03)
[2018-10-19] MEDS: LEVOTHYROXINE 100 MCG TAB PO SCH (06:45)
[2018-10-19] MEDS: METOPROLOL TARTRATE 25 MG TAB PO SCH (08:07)
[2018-10-19] MEDS: GABAPENTIN 300 MG CAP PO SCH ×2 (08:07→17:02)
[2018-10-19] MEDS: DULoxetine HCL 60 MG CAPSULE.DR PO SCH (08:07)
[2018-10-19] MEDS: ARIPiprazole 5 MG TAB PO SCH (08:08)
[2018-10-19] MEDS: SPIRONOLACTONE 25 MG TAB PO SCH (08:08)
[2018-10-19] MEDS: ESCITALOPRAM 10 MG TAB PO SCH (08:08)
[2018-10-19] MEDS: FOLIC ACID 1 MG TAB PO SCH (08:08)
[2018-10-19] MEDS: PRAZOSIN 1 MG CAP PO SCH (08:08)
[2018-10-19] MEDS: HYDROcodone/APAP 10-325MG 1 EACH TAB PO PRN ×2 (08:14→13:47)
[2018-10-19] MEDS: DIAZEPAM 5 MG TAB PO SCH ×2 (08:48→17:02)
[2018-10-19] MEDS: [UNRECOGNIZED DRUG - OTHER] PO SCH (10:05)
--- NOTE | 2018-10-19 13:29 | P.CONS ---
History of Present Illness - Reason for Consult Consult date: 10/19/18 Abdominal pain Requesting physician: Erickson Ponce - Chief Complaint Chest pain - History of Present Illness 48-year-old nonambulatory female admitted with abdominal pain. Past medical history morbid obesity BMI 72, UT, GERD, hypertension, PE, RA, renal disease. Consult requested for left upper abdominal pain. Was advised evaluation at a tertiary care center for gallbladder dysfunction however patient has not followed up due to transportation issues. Seen by general surgery 6 months ago not deemed to be a surgical candidate. CT abdomen no acute findings. White count 10.6. Hemoglobin 10.7. INR 0.9. LFTs within normal limits. Troponin negative 3. Pain is exacerbated sometimes with meals and a daily basis. She feels she has a hernia in the left upper abdomen. No changes in bowel movements. Denies hematemesis hematochezia or melena. No fevers. Review of Systems Constitutional: Denies fever, chills, sweats, weight gain, or loss. HEENT: Negative for migraines, blurred vision or loss, earaches, drainage, tinn itus, oral mucosal lesions, dysphagia, or odynophagia. CARDIAC: Negative for chest pain, arrhythmias, or palpitation. RESPIRATORY: Negative for shortness of breath, hemoptysis, cough, or sputum production. GI: See HPI for pertinent findings. : Negative for hematuria, urgency, frequency, polyuria, or dysuria. GYNc: Denies possibility of . Negative vaginal discharge. MUSCULOSKELETAL: Negative for muscle aches, swelling, arthritis, and arthralgias. NEUROLOGIC: Negative for stroke or TIA. ENDOCRINE: Negative for thyroid problems. SKIN: Negative for rash or itching. PSYCHIATRIC: Negative history for depression and anxiety Past Medical History Past Medical History: GERD/Reflux, GI Bleed, Hypertension, Myocardial Infarction (UT), Osteoarthritis (OA), Pulmonary Embolus (PE), Renal Disease, Rheumatoid Arthritis (RA), Syncope Additional Past Medical History / Comment(s): Obesity, numbness/tingling bilate ral feet, chronic phil leg wound/cellulitis currently healed, previous rt leg ulcers now healed, lower leg edema, chronic low back pain with sciatica, tail bone fracture, bedbound, migraines, pt states she had toxemia with 1st and had a UT, bilateral tinnitis occasionally, bronchitis, sinus problems, gout bilateral feet, carpal tunnel syndrome bilateral wrists, hypothyoid, HTN but only with anxiety, colitis, IBS, chron's, diverticular dx, occasional low blood sugar, chronic anemia, lower GI bleed, UTIs,"sickle cell" trait, pt has fatty umbilical hernia and hydropic gallbladder-was to f/u at [facility] but has been unable to get there. Last Myocardial Infarction Date:: 1989 History of Any Multi-Drug Resistant Organisms: None Reported Past Surgical History: Section, Tubal Ligation Additional Past Surgical History / Comment(s): colonoscopy, 4 c-sections Past Anesthesia/Blood Transfusion Reactions: No Reported Reaction Additional Past Anesthesia/Blood Transfusion Reaction / Comm: Pt has received blood in the past and had itching, has had another transfusion since with no reaction. Smoking Status: Never smoker - Past Family History Father History Unknown: Yes Additional Family Medical History / Comment(s): Pt was adopted and does not know parents/family medical hx. Medications and Allergies Home Medications Medication Instructions Recorded Confirmed Type Ferrous Sulfate [Iron (65 MG 325 mg PO BID 08/28/14 10/17/18 History Elemental)] Prazosin [Minipress] 1 mg PO DAILY 04/24/17 10/17/18 History Folic Acid 1 mg PO DAILY 12/01/17 10/17/18 History Gabapentin [Neurontin] 600 mg PO TID #90 cap 12/06/17 10/17/18 Rx Diazepam [Valium] 5 mg PO TID 04/05/18 10/17/18 History hydrALAZINE HCL [Apresoline] 10 mg PO TID PRN 04/06/18 10/17/18 History metFORMIN HCL ER [Glucophage Xr] 1,000 mg PO HS 04/06/18 10/17/18 History Diclofenac Sodium [Voltaren] 75 mg PO BID 04/10/18 10/17/18 History HYDROcodone/APAP 10-325MG [[place] 1 tab PO QID PRN 04/10/18 10/17/18 History 10-325] DULoxetine HCL [Cymbalta] 60 mg PO DAILY 06/04/18 10/17/18 History Spironolactone 50 mg PO DAILY 06/04/18 10/17/18 History ARIPiprazole [Abilify] 5 mg PO DAILY 10/17/18 10/17/18 History Ergocalciferol (Vitamin D2) 50,000 unit PO SUTH 10/17/18 10/17/18 History [Drisdol] Escitalopram [Lexapro] 10 mg PO DAILY 10/17/18 10/17/18 History Levothyroxine Sodium 100 mcg PO DAILY 10/17/18 10/17/18 History Loperamide [Imodium] 4 mg PO DIRECTED 10/17/18 10/17/18 History Lorcaserin HCl [Belviq Xr] 20 mg PO DAILY 10/17/18 10/17/18 History Metoprolol Tartrate [Lopressor] 25 mg PO BID 10/17/18 10/17/18 History Allergies Allergy/AdvReac Type Severity Reaction Status Date / Time oxycodone HCl [From Percocet] Allergy Rash/Hives Verified 10/17/18 10:42 procaine HCl [From Novocain] Allergy facial Verified 10/17/18 10:42 swelling strawberry Allergy Rash/Hives Verified 10/17/18 10:42 Physical Exam Vitals: Vital Signs Temp Pulse Resp BP BP Pulse Ox 10/19/18 10:34 98.3 F 94 16 122/77 97 10/19/18 08:00 98.5 F 97 18 135/92 99 10/19/18 04:00 97.7 F 105 H 18 139/82 98 10/19/18 00:00 20 10/18/18 20:00 20 10/18/18 19:51 97.6 F 100 20 122/77 93 L 10/18/18 15:59 97.4 F L 93 20 110/84 97 10/18/18 12:00 93 20 10/18/18 11:39 97.9 F 93 20 121/58 94 L Intake and Output 10/18/18 10/19/18 10/19/18 22:59 06:59 14:59 Other: Voiding Method Bedpan Bedpan Bedpan # Voids 1 General appearance: The patient is alert, oriented, in no acute distress. HET: Head is normocephalic and atraumatic. Pupils are equal and reactive. Oropharynx is clear without lesions. Neck: Supple without lymphadenopathy. Trachea midline. Heart: S1 S2. Regular rate and rhythm. Lungs: No crackles or wheezes are heard. Abdomen: Soft, morbidly obese mild tenderness left upper abdomen due to exogenous obesity unable to evaluate for hernia at this time, nondistended with bowel sounds. No peritoneal signs. No palpable organomegaly or masses. Extremities: +2 bilateral lower extremity edema. Neurological: No focal deficits. Strength and sensation are grossly intact. Results CBC & Chem 7: 10/17/18 10:50 10/17/18 09:36 CT scan - abdomen: report reviewed (Dr. Martinez) Assessment and Plan (1) Abdominal pain Narrative/Plan: 48-year-old female relatively nonambulatory with a history of morbid obesity BMI 72 reports chronic upper abdominal pain for greater than 1 year duration previously evaluated locally by general surgery not deemed a surgical candidate, referral to tertiary center, evaluation not completed secondary to transportation issues. She presents with acute on chronic abdominal pain now toward the left upper abdomen verbalizes she may have an abdominal hernia however due to her exogenous obesity unable to fully evaluate at this time. CT abdomen and pelvis reported no acute findings no mentioning of obvious abdominal hernia. Current Visit: No Status: Acute Code(s): R10.9 - UNSPECIFIED ABDOMINAL PAIN SNOMED Code(s): 14674493 (2) BMI 70 and over, adult Current Visit: No Status: Acute Code(s): Z68.45 - BODY MASS INDEX (BMI) 70 OR GREATER, ADULT SNOMED Code(s): 873198464 Plan: 1. Will check lipase to rule out pancreatitis however differential of pancreatitis felt to be low. Continue with a low-fat diet. Patient was advised to follow-up a tertiary care center as previously advised. No further workup fr om a GI standpoint. Thank you for this kind referral and the opportunity to participate in the care of your patient. This consultation was discussed with Dr. Martinez. The impression and plan of care have been directed as dictated.
[2018-10-19 15:27] VITALS: BP 139/80; PULSE 87; RESP 22; TEMP 98.1
[2018-10-19] MEDS ORDERED: BUTALB/APAP/CAFF 50-325-40MG TAB PO STA (16:49)
--- NOTE | 2018-10-19 16:55 | P.DS ---
Providers Date of admission: 10/17/18 12:08 Expected date of discharge: 10/19/18 Attending physician: Erickson Ponce MD Consults: 10/17/18 12:08 Consult Physician Urgent Consulting Provider: [facility] Consult Reason/Comments: Chest pain Do you want consulting provider notified?: Yes 10/18/18 14:05 Consult Physician Urgent Consulting Provider: Chelsea Leo Consult Reason/Comments: Abdominal pain Do you want consulting provider notified?: Yes Primary care physician: [facility] Course: Patient is a 48-year-old female with a PMH of morbid obesity, hypertension, ?IN (patient reports that she developed fluid overload during her first she was 19, and was told that she might have had a heart attack then, with no subsequent MIs), gallbladder dysfunction, bedbound due to phil knee OA, multiple admissions for vague abdominal pain, presented to the ED with complaints of left-sided abdominal pain, occurring intermittently over the past few days to weeks. The patient notes that she's had this pain for the past few years, no specific inciting or alleviating factors, with no relationship to exertion. At time of interview, she reported that her pain was a 2 out of 10, nonradiating, deep in the left upper quadrant, sharp/pressure like. Patient noted the pain was similar to the pain on her previous presentations. She also endorsed an epigastric/R sided substernal pain somewhat pleuritic in nature, non-exertional. She otherwise denied palpitations, nausea, or vomiting. She further denied fever, chills, cough, or diarrhea. Of note, the patient was evaluated by surgery (Dr. Zavaleta) on 06/05/18 and 04/13/18, and deemed to not be a surgical candidate for her gall-bladder dysfunction. She was further advised to follow-up with a tertiary care center.The patient underwent an an extensive evaluation in the ED w/ Troponin < 0.012, BNP < 11, CXR unremarkable, EKG showing NSR @ 87 bpm w/ no acute ST-T wave changes, WBC 10.6, BUN 13, and Cr 0.82. THe patient was admitted to the medicine service under observation for abdominal pain. The patient was evaluated by the Cardiology service who noted that the pain was non- cardiac in origin. The patient's troponin were neg x 3. The patient continued to endorsed LUQ pain for which a CT abd/pelvis with contrast was performed and was unremarkable. Subsequent GI consult was placed, and upon examination, there recommended that the patient should follow-up with a tertiary care center and had no further GI workup was recommended. Lipase was ordered which was within normal limits. The patient was advised of the findings and discussed in detail the need for follow-up with a tertiary care center. Physical Examination General: Non-toxic, in no acute distress, appears older than stated age, morbidly obese HEENT: NC/AT, anicteric sclerae, moist conjunctiva, no lid-lag, PERRLA Cardiovascular: S1/S2 wnl, no murmurs, rubs, or gallops Lungs: Clear to auscultation, normal respiratory effort, no accessory muscle use Abdominal: Soft, mild LUQ tenderness to palpation, non-distended, no guarding, rebound, or rigidity Skin: Warm, dry Extremities: No edema or contractures Psychiatric: Alert and oriented to person, place and time, appropriate affect Neuro: CN II-XII grossly intact, Strength 5/5 in all 4 extremities, Speech intact, Sensation to light touch grossly intact throughout Discharge diagnosis: Chronic abdominal pain; chest pain, ACS ruled out; hypertension; hepatitis A total of 40 minutes of time were spent preparing this complex discharge summary. Patient Condition at Discharge: Stable Plan - Discharge Summary Discharge Rx Participant: No New Discharge Prescriptions: Continue Ferrous Sulfate [Iron (65 MG Elemental)] 325 mg PO BID Prazosin [Minipress] 1 mg PO DAILY Folic Acid 1 mg PO DAILY Gabapentin [Neurontin] 600 mg PO TID #90 cap Diazepam [Valium] 5 mg PO TID metFORMIN HCL ER [Glucophage Xr] 1,000 mg PO HS hydrALAZINE HCL [Apresoline] 10 mg PO TID PRN PRN Reason: Blood Pressure - High Diclofenac Sodium [Voltaren] 75 mg PO BID HYDROcodone/APAP 10-325MG [Dover 10-325] 1 tab PO QID PRN PRN Reason: Moderate Pain Spironolactone 50 mg PO DAILY DULoxetine HCL [Cymbalta] 60 mg PO DAILY ARIPiprazole [Abilify] 5 mg PO DAILY Escitalopram [Lexapro] 10 mg PO DAILY Levothyroxine Sodium 100 mcg PO DAILY Metoprolol Tartrate [Lopressor] 25 mg PO BID Lorcaserin HCl [Belviq Xr] 20 mg PO DAILY Loperamide [Imodium] 4 mg PO DIRECTED Ergocalciferol (Vitamin D2) [Drisdol] 50,000 unit PO SUTH Discharge Medication List Ferrous Sulfate [Iron (65 MG Elemental)] 325 mg PO BID 08/28/14 [History] Prazosin [Minipress] 1 mg PO DAILY 04/24/17 [History] Folic Acid 1 mg PO DAILY 12/01/17 [History] Gabapentin [Neurontin] 600 mg PO TID #90 cap 12/06/17 [Rx] Diazepam [Valium] 5 mg PO TID 04/05/18 [History] hydrALAZINE HCL [Apresoline] 10 mg PO TID PRN 04/06/18 [History] metFORMIN HCL ER [Glucophage Xr] 1,000 mg PO HS 04/06/18 [History] Diclofenac Sodium [Voltaren] 75 mg PO BID 04/10/18 [History] HYDROcodone/APAP 10-325MG [Dover 10-325] 1 tab PO QID PRN 04/10/18 [History] DULoxetine HCL [Cymbalta] 60 mg PO DAILY 06/04/18 [History] Spironolactone 50 mg PO DAILY 06/04/18 [History] ARIPiprazole [Abilify] 5 mg PO DAILY 10/17/18 [History] Ergocalciferol (Vitamin D2) [Drisdol] 50,000 unit PO SUTH 10/17/18 [History] Escitalopram [Lexapro] 10 mg PO DAILY 10/17/18 [History] Levothyroxine Sodium 100 mcg PO DAILY 10/17/18 [History] Loperamide [Imodium] 4 mg PO DIRECTED 10/17/18 [History] Lorcaserin HCl [Belviq Xr] 20 mg PO DAILY 10/17/18 [History] Metoprolol Tartrate [Lopressor] 25 mg PO BID 10/17/18 [History] Follow up Appointment(s)/Referral(s): Miki Stewart MD [Primary Care Provider] - 1-2 days
== END 2018-10-19 18:25 | disposition home or self-care (01) ==
LOC: EC 09:01 → EEVIPCON 09:01 → 1SOBS 12:08 → 4MS4W 10-19 09:31
PROVIDERS: ADMIT Family Medicine; ATTEND Family Medicine
DX: R07.89 Other chest pain (principal); G89.29 Other chronic pain; R10.12 Left upper quadrant pain; M06.9 Rheumatoid arthritis, unspecified; E03.9 Hypothyroidism, unspecified; I12.9 Hypertensive chronic kidney disease with stage 1 through stage 4 chronic kidney disease, or unspecified chronic kidney disease; N18.9 Chronic kidney disease, unspecified; K21.9 Gastro-esophageal reflux disease without esophagitis; F41.9 Anxiety disorder, unspecified; M17.0 Bilateral primary osteoarthritis of knee; E66.01 Morbid (severe) obesity due to excess calories; Z68.45 Body mass index [BMI] 70 or greater, adult; M54.40 Lumbago with sciatica, unspecified side; M10.9 Gout, unspecified; K50.90 Crohn's disease, unspecified, without complications; K57.90 Diverticulosis of intestine, part unspecified, without perforation or abscess without bleeding; D57.3 Sickle-cell trait; F32.9 Major depressive disorder, single episode, unspecified; K42.9 Umbilical hernia without obstruction or gangrene; G43.909 Migraine, unspecified, not intractable, without status migrainosus; K82.1 Hydrops of gallbladder; R60.0 Localized edema; K75.9 Inflammatory liver disease, unspecified; Z74.01 Bed confinement status; E66.9 Obesity, unspecified; D64.9 Anemia, unspecified; G56.03 Carpal tunnel syndrome, bilateral upper limbs; Z88.4 Allergy status to anesthetic agent; Z79.890 Hormone replacement therapy; Z79.84 Long term (current) use of oral hypoglycemic drugs; Z79.1 Long term (current) use of non-steroidal anti-inflammatories (NSAID); Z79.899 Other long term (current) drug therapy; Z88.5 Allergy status to narcotic agent; Z91.018 Allergy to other foods; Z86.711 Personal history of pulmonary embolism; Z98.51 Tubal ligation status; I25.2 Old myocardial infarction; Z87.81 Personal history of (healed) traumatic fracture; Z87.2 Personal history of diseases of the skin and subcutaneous tissue; Z87.09 Personal history of other diseases of the respiratory system; Z87.19 Personal history of other diseases of the digestive system; Z87.440 Personal history of urinary (tract) infections; Z87.442 Personal history of urinary calculi
CPT/HCPCS: 96372 ×3; 99285; 36415; 85379; 83880; 80061; 80053; 83690; 83735; 84484; 85025; 85610; 85730; 71046; 74177; G0378 ×3; J1644 ×3; Q9967

== ENCOUNTER 2018-10-31 14:23 | Emergency (ER) | payer MEDICARE, OTHER ==
[2018-10-31] MEDS ORDERED: FAMOTIDINE 20 MG/2 ML VIAL IV STA (14:49)
[2018-10-31] MEDS ORDERED: SODIUM CHLORIDE 0.9% 1,000 ML IV STA (14:49)
[2018-10-31] MEDS ORDERED: METOCLOPRAMIDE 5 MG/ML 2 ML VIAL IVP STA (14:49)
[2018-10-31] MEDS ORDERED: DICYCLOMINE 10 MG/ML 2 ML AMP IM STA (14:50)
--- NOTE | 2018-10-31 15:00 | ED ---
General Adult HPI - General Source: patient, EMS, RN notes reviewed Mode of arrival: EMS Limitations: language barrier <Marco A Frye - Last Filed: 10/31/18 16:31> <Alvaro Beltrán - Last Filed: 10/31/18 22:36> - General Chief complaint: Abdominal Pain Stated complaint: abdominal pain Time Seen by Provider: 10/31/18 14:40 - History of Present Illness Initial comments: Patient is a pleasant 48-year-old female presenting to the emergency Department with what she states his chest discomfort. Patient does point to her abdomen in the epigastric region. Patient states this is the area of discomfort. Patient states she has had this area of discomfort multiple times over several years. Patient states she has had dozens of evaluations for this previously. Patient has had some nausea. Patient has had some constipation or diarrhea. No fevers. No vomiting. Patient states every single time she had this discomfort is somewhat worse. (Marco A Frye) - Related Data Home Medications Medication Instructions Recorded Confirmed Ferrous Sulfate [Iron (65 MG 325 mg PO BID 08/28/14 10/31/18 Elemental)] Prazosin [Minipress] 1 mg PO DAILY 04/24/17 10/31/18 Folic Acid 1 mg PO DAILY 12/01/17 10/31/18 Diazepam [Valium] 5 mg PO TID 04/05/18 10/31/18 hydrALAZINE HCL [Apresoline] 10 mg PO TID PRN 04/06/18 10/31/18 metFORMIN HCL ER [Glucophage Xr] 1,000 mg PO HS 04/06/18 10/31/18 Diclofenac Sodium [Voltaren] 75 mg PO BID 04/10/18 10/31/18 HYDROcodone/APAP 10-325MG [Rochelle 1 tab PO QID PRN 04/10/18 10/31/18 10-325] DULoxetine HCL [Cymbalta] 60 mg PO DAILY 06/04/18 10/31/18 Spironolactone 50 mg PO DAILY 06/04/18 10/31/18 ARIPiprazole [Abilify] 5 mg PO DAILY 10/17/18 10/31/18 Ergocalciferol (Vitamin D2) 50,000 unit PO SUTH 10/17/18 10/31/18 [Drisdol] Escitalopram [Lexapro] 10 mg PO DAILY 10/17/18 10/31/18 Levothyroxine Sodium 100 mcg PO DAILY 10/17/18 10/31/18 Loperamide [Imodium] 4 mg PO DIRECTED 10/17/18 10/31/18 Lorcaserin HCl [Belviq Xr] 20 mg PO DAILY 10/17/18 10/31/18 Aspirin [Reid Aspirin EC] 324 mg PO DAILY 10/31/18 10/31/18 Metoprolol Succinate (ER) [Toprol 50 mg PO DAILY 10/31/18 10/31/18 XL] Nitroglycerin Sl Tabs [Nitrostat] 0.4 mg SL Q5M 10/31/18 10/31/18 Previous Rx's Medication Instructions Recorded Gabapentin [Neurontin] 600 mg PO TID #90 cap 12/06/17 Allergies Allergy/AdvReac Type Severity Reaction Status Date / Time oxycodone HCl [From Percocet] Allergy Rash/Hives Verified 10/31/18 15:04 procaine HCl [From Novocain] Allergy facial Verified 10/31/18 15:04 swelling strawberry Allergy Rash/Hives Verified 10/31/18 15:04 Review of Systems ROS Other: All systems not noted in ROS Statement are negative. Constitutional: Denies: fever, chills Eyes: Denies: eye pain ENT: Denies: ear pain Respiratory: Denies: dyspnea Cardiovascular: Reports: as per HPI Endocrine: Denies: fatigue Gastrointestinal: Reports: abdominal pain, nausea, diarrhea, constipation. Denies: vomiting Genitourinary: Denies: dysuria Musculoskeletal: Denies: back pain Skin: Denies: rash Neurological: Denies: weakness <Marco A Frye - Last Filed: 10/31/18 16:31> ROS Other: All systems not noted in ROS Statement are negative. <Alvaro Beltrán - Last Filed: 10/31/18 22:36> ROS Statement: Those systems with pertinent positive or pertinent negative responses have been documented in the HPI. Past Medical History Past Medical History: GERD/Reflux, GI Bleed, Hypertension, Myocardial Infarction (PR), Osteoarthritis (OA), Pulmonary Embolus (PE), Renal Disease, Rheumatoid Arthritis (RA), Syncope Additional Past Medical History / Comment(s): Obesity, numbness/tingling bilateral feet, chronic phil leg wound/cellulitis currently healed, previous rt leg ulcers now healed, lower leg edema, chronic low back pain with sciatica, tail bone fracture, bedbound, migraines, pt states she had toxemia with 1st and had a PR, bilateral tinnitis occasionally, bronchitis, sinus problems, gout bilateral feet, carpal tunnel syndrome bilateral wrists, hypothyo id, HTN but only with anxiety, colitis, IBS, chron's, diverticular dx, occasional low blood sugar, chronic anemia, lower GI bleed, UTIs,"sickle cell" trait, pt has fatty umbilical hernia and hydropic gallbladder-was to f/u at [facility] but has been unable to get there. Last Myocardial Infarction Date:: 1989 History of Any Multi-Drug Resistant Organisms: None Reported Past Surgical History: Section, Tubal Ligation Additional Past Surgical History / Comment(s): colonoscopy, 4 c-sections Past Anesthesia/Blood Transfusion Reactions: No Reported Reaction Additional Past Anesthesia/Blood Transfusion Reaction / Comment(s): Pt has received blood in the past and had itching, has had another transfusion since with no reaction. Past Psychological History: Anxiety, Depression Smoking Status: Never smoker - Past Family History Father History Unknown: Yes Additional Family Medical History / Comment(s): Pt was adopted and does not know parents/family medical hx. <Marco A Frye - Last Filed: 10/31/18 16:31> General Exam Limitations: no limitations General appearance: alert, in no apparent distress, obese Head exam: Present: atraumatic Eye exam: Present: normal appearance, PERRL ENT exam: Present: normal oropharynx Neck exam: Present: normal inspection Respiratory exam: Present: normal lung sounds bilaterally Cardiovascular Exam: Present: regular rate, normal rhythm Expanded Peripheral pulses: 2+: Dorsalis Pedis (R), Dorsalis Pedis (L) GI/Abdominal exam: Present: soft, tenderness (Moderate epigastric tenderness to palpation), normal bowel sounds. Absent: distended, guarding, rebound, rigid, pulsatile mass Extremities exam: Present: normal inspection Neurological exam: Present: alert Psychiatric exam: Present: normal affect, normal mood Skin exam: Present: normal color <Marco A Frye - Last Filed: 10/31/18 16:31> Course Vital Signs 10/31/18 10/31/18 10/31/18 14:38 14:41 15:53 Temperature 98.3 F Pulse Rate 112 H 110 H Pulse Rate [ 110 H Bilateral Clinical Nursing Intern ] Respiratory 20 18 Rate Blood Pressure 110/92 110/82 O2 Sat by Pulse 98 100 Oximetry 10/31/18 10/31/18 10/31/18 16:54 18:28 19:16 Temperature 101.0 F H 99.6 F 99.7 F H Pulse Rate 120 H 110 H 111 H Pulse Rate [ Bilateral Clinical Nursing Intern ] Respiratory 20 18 19 Rate Blood Pressure 178/108 155/76 139/83 O2 Sat by Pulse 100 100 100 Oximetry 10/31/18 22:24 Temperature 98.5 F Pulse Rate 103 H Pulse Rate [ Bilateral Clinical Nursing Intern ] Respiratory 18 Rate Blood Pressure 138/92 O2 Sat by Pulse 97 Oximetry EKG Findings - EKG Comments: EKG Findings:: Sinus tachycardia 122. PA 142. QRS 80. QT 326. QTc 464. Normal axis. Normal QRS. No acute ST change. Some motion artifact is present. <Marco A Frye - Last Filed: 10/31/18 16:31> Medical Decision Making - Lab Data Result diagrams: 10/31/18 14:30 10/31/18 14:30 - Radiology Data Radiology results: image reviewed (Chest x-ray and abdominal x-ray reveals no acute process) <Marco A Frye - Last Filed: 10/31/18 16:31> - Lab Data Result diagrams: 10/31/18 14:30 10/31/18 14:30 <Alvaro Beltrán - Last Filed: 10/31/18 22:36> - Medical Decision Making Patient was signed out to me by previous shift physician. Briefly, patient is a 48-year-old female who is morbidly obese has multiple medical problems presents with epigastric abdominal pain. At time of sign out labs and some imaging was obtained. Instructions at sign out was to follow-up with ultrasound to evaluate for acute cholecystitis. Patient was febrile. Patient has no other complaints at this time. She is evaluated at bedside. Patient denies any other localizing infectious symptoms.D-dimer was added found to be elevated at 0.74. CT angios chest was obtained showing no definitive signs of pulmonary embolus. CT abdomen and pelvis was obtained showing no surgical abdomen or intra-abdominal infection. Repeat vital signs was obtained from be within acceptable limits. More history was obtained from patient she did report that she had family member who had viral URI-type symptoms. At this point there is no clear etiology of patient's pyrexia however she does not have any signs of serious bacterial illness. Cuadra advised to follow-up with primary care physician. Return parameters discussed. Patient clear for discharge. (Alvaro Beltrán) - Lab Data Lab Results 10/31/18 10/31/18 10/31/18 Range/Units 14:30 14:30 14:30 WBC 8.7 (3.8-10.6) k/uL RBC 4.24 (3.80-5.40) m/uL Hgb 10.7 L (11.4-16.0) gm/dL Hct 33.9 L (34.0-46.0) % MCV 79.9 L (80.0-100.0) fL MCH 25.1 (25.0-35.0) pg MCHC 31.4 (31.0-37.0) g/dL RDW 15.3 (11.5-15.5) % Plt Count 360 (150-450) k/uL Neutrophils % 81 % Lymphocytes % 14 % Monocytes % 3 % Eosinophils % 1 % Basophils % 0 % Neutrophils # 7.0 (1.3-7.7) k/uL Lymphocytes # 1.3 (1.0-4.8) k/uL Monocytes # 0.3 (0-1.0) k/uL Eosinophils # 0.1 (0-0.7) k/uL Basophils # 0.0 (0-0.2) k/uL Hypochromasia Moderate PT 9.8 (9.0-12.0) sec INR 0.9 (<1.2) APTT 23.8 (22.0-30.0) sec D-Dimer (<0.60) mg/L FEU Sodium 142 (137-145) mmol/L Potassium 4.1 (3.5-5.1) mmol/L Chloride 107 (98-107) mmol/L Carbon Dioxide 28 (22-30) mmol/L Anion Gap 7 mmol/L BUN 13 (7-17) mg/dL Creatinine 0.76 (0.52-1.04) mg/dL Est GFR (CKD-EPI)AfAm >90 (>60 ml/min/1.73 sqM) Est GFR (CKD-EPI)NonAf >90 (>60 ml/min/1.73 sqM) Glucose 142 H (74-99) mg/dL Calcium 9.1 (8.4-10.2) mg/dL Total Bilirubin 0.7 (0.2-1.3) mg/dL AST 149 H (14-36) U/L ALT 39 (9-52) U/L Alkaline Phosphatase 91 (38-126) U/L Creatine Kinase 139 H (30-135) U/L Troponin I (0.000-0.034) ng/mL Total Protein 7.2 (6.3-8.2) g/dL Albumin 3.8 (3.5-5.0) g/dL Amylase 49 (30-110) U/L Lipase 80 (23-300) U/L Urine Color Urine Appearance (Clear) Urine pH (5.0-8.0) Ur Specific Kress (1.001-1.035) Urine Protein (Negative) Urine Glucose (UA) (Negative) Urine Ketones (Negative) Urine Blood (Negative) Urine Nitrite (Negative) Urine Bilirubin (Negative) Urine Urobilinogen (<2.0) mg/dL Ur Leukocyte Esterase (Negative) Influenza Type A RNA (Not Detectd) Influenza Type B (PCR) (Not Detectd) 10/31/18 10/31/18 10/31/18 Range/Units 14:30 15:50 19:10 WBC (3.8-10.6) k/uL RBC (3.80-5.40) m/uL Hgb (11.4-16.0) gm/dL Hct (34.0-46.0) % MCV (80.0-100.0) fL MCH (25.0-35.0) pg MCHC (31.0-37.0) g/dL RDW (11.5-15.5) % Plt Count (150-450) k/uL Neutrophils % % Lymphocytes % % Monocytes % % Eosinophils % % Basophils % % Neutrophils # (1.3-7.7) k/uL Lymphocytes # (1.0-4.8) k/uL Monocytes # (0-1.0) k/uL Eosinophils # (0-0.7) k/uL Basophils # (0-0.2) k/uL Hypochromasia PT (9.0-12.0) sec INR (<1.2) APTT (22.0-30.0) sec D-Dimer (<0.60) mg/L FEU Sodium (137-145) mmol/L Potassium (3.5-5.1) mmol/L Chloride (98-107) mmol/L Carbon Dioxide (22-30) mmol/L Anion Gap mmol/L BUN (7-17) mg/dL Creatinine (0.52-1.04) mg/dL Est GFR (CKD-EPI)AfAm (>60 ml/min/1.73 sqM) Est GFR (CKD-EPI)NonAf (>60 ml/min/1.73 sqM) Glucose (74-99) mg/dL Calcium (8.4-10.2) mg/dL Total Bilirubin (0.2-1.3) mg/dL AST (14-36) U/L ALT (9-52) U/L Alkaline Phosphatase (38-126) U/L Creatine Kinase (30-135) U/L Troponin I <0.012 (0.000-0.034) ng/mL Total Protein (6.3-8.2) g/dL Albumin (3.5-5.0) g/dL Amylase (30-110) U/L Lipase (23-300) U/L Urine Color Yellow Urine Appearance Clear (Clear) Urine pH 5.5 (5.0-8.0) Ur Specific Kress 1.015 (1.001-1.035) Urine Protein Negative (Negative) Urine Glucose (UA) Negative (Negative) Urine Ketones Negative (Negative) Urine Blood Negative (Negative) Urine Nitrite Negative (Negative) Urine Bilirubin Negative (Negative) Urine Urobilinogen <2.0 (<2.0) mg/dL Ur Leukocyte Esterase Negative (Negative) Influenza Type A RNA Not Detected (Not Detectd) Influenza Type B (PCR) Not Detected (Not Detectd) 10/31/18 Range/Units 19:30 WBC (3.8-10.6) k/uL RBC (3.80-5.40) m/uL Hgb (11.4-16.0) gm/dL Hct (34.0-46.0) % MCV (80.0-100.0) fL MCH (25.0-35.0) pg MCHC (31.0-37.0) g/dL RDW (11.5-15.5) % Plt Count (150-450) k/uL Neutrophils % % Lymphocytes % % Monocytes % % Eosinophils % % Basophils % % Neutrophils # (1.3-7.7) k/uL Lymphocytes # (1.0-4.8) k/uL Monocytes # (0-1.0) k/uL Eosinophils # (0-0.7) k/uL Basophils # (0-0.2) k/uL Hypochromasia PT (9.0-12.0) sec INR (<1.2) APTT (22.0-30.0) sec D-Dimer 0.74 H (<0.60) mg/L FEU Sodium (137-145) mmol/L Potassium (3.5-5.1) mmol/L Chloride (98-107) mmol/L Carbon Dioxide (22-30) mmol/L Anion Gap mmol/L BUN (7-17) mg/dL Creatinine (0.52-1.04) mg/dL Est GFR (CKD-EPI)AfAm (>60 ml/min/1.73 sqM) Est GFR (CKD-EPI)NonAf (>60 ml/min/1.73 sqM) Glucose (74-99) mg/dL Calcium (8.4-10.2) mg/dL Total Bilirubin (0.2-1.3) mg/dL AST (14-36) U/L ALT (9-52) U/L Alkaline Phosphatase (38-126) U/L Creatine Kinase (30-135) U/L Troponin I (0.000-0.034) ng/mL Total Protein (6.3-8.2) g/dL Albumin (3.5-5.0) g/dL Amylase (30-110) U/L Lipase (23-300) U/L Urine Color Urine Appearance (Clear) Urine pH (5.0-8.0) Ur Specific Kress (1.001-1.035) Urine Protein (Negative) Urine Glucose (UA) (Negative) Urine Ketones (Negative) Urine Blood (Negative) Urine Nitrite (Negative) Urine Bilirubin (Negative) Urine Urobilinogen (<2.0) mg/dL Ur Leukocyte Esterase (Negative) Influenza Type A RNA (Not Detectd) Influenza Type B (PCR) (Not Detectd) Disposition <Marco A Frye - Last Filed: 10/31/18 16:31> Is patient prescribed a controlled substance at d/c from ED?: No Time of Disposition: 22:36 <Alvaro Beltrán - Last Filed: 10/31/18 22:36> Clinical Impression: Abdominal pain Disposition: HOME SELF-CARE Condition: Good Instructions (If sedation given, give patient instructions): Abdominal Pain (ED) Referrals: Nonstaff,Physician [Primary Care Provider] - 1-2 days
[2018-10-31] MEDS ORDERED: ACETAMINOPHEN TAB 500 MG TAB PO STA (15:22)
[2018-10-31 15:25] LABS: ALT 39 U/L (9-52); AST 149 U/L (14-36); Albumin 3.8 g/dL (3.5-5.0); Alkaline Phosphatase 91 U/L (38-126); Amylase 49 U/L (30-110); Anion Gap 7 mmol/L; Blood Urea Nitrogen 13 mg/dL (7-17); Calcium 9.1 mg/dL (8.4-10.2); Carbon Dioxide 28 mmol/L (22-30); Chloride 107 mmol/L (98-107); Creatine Kinase 139 U/L (30-135); Glucose 142 mg/dL (74-99); INR 0.9 (<1.2); Lipase 80 U/L (23-300); Partial Thromboplastin Time 23.8 sec (22.0-30.0); Potassium 4.1 mmol/L (3.5-5.1); Prothrombin Time 9.8 sec (9.0-12.0); Sodium 142 mmol/L (137-145); Total Bilirubin 0.7 mg/dL (0.2-1.3); Total Protein 7.2 g/dL (6.3-8.2)
--- NOTE | 2018-10-31 15:44 | XR ---
KUB HISTORY: Abdominal pain KUB submitted on 4 images and correlated to prior CT 10/18/2018 There is no pathologic calcification evident. No pneumoperitoneum or bowel obstruction. Probable vasc ular calcifications within the pelvis. Arthropathy noted within the hips. Lung bases are clear. IMPRESSION: No acute abnormalities evident.
[2018-10-31 15:47] LABS: Basophils % (A) 0 %; Eosinophils # (A) 0.1 k/uL (0-0.7); Eosinophils % (A) 1 %; HCT 33.9 % (34.0-46.0); HGB 10.7 gm/dL (11.4-16.0); Hypochromasia Moderate; Lymphocytes # (A) 1.3 k/uL (1.0-4.8); Lymphocytes % (A) 14 %; MCH 25.1 pg (25.0-35.0); MCHC 31.4 g/dL (31.0-37.0); MCV 79.9 fL (80.0-100.0); Monocytes # (A) 0.3 k/uL (0-1.0); Monocytes % (A) 3 %; Neutrophils % (A) 81 %; Platelet Count 360 k/uL (150-450); RBC 4.24 m/uL (3.80-5.40); RDW 15.3 % (11.5-15.5); WBC 8.7 k/uL (3.8-10.6)
--- NOTE | 2018-10-31 16:30 | XR ---
EXAMINATION TYPE: XR chest 2V DATE OF EXAM: 10/31/2018 COMPARISON: Prior chest x-ray 10/17/2018 HISTORY: Chest pain TECHNIQUE: Frontal and lateral views of the chest are obtained. FINDINGS: There is no focal air space opacity, pleural effusion, or pneumothorax seen. The cardiac silhouette size is stable, borderline enlarged. The osseous structures are intact. There are overl chepe cardiac leads. Patient is rotated. IMPRESSION: No acute cardiopulmonary process.
[2018-10-31 16:40] LABS: Appearance,Urine Clear (Clear); Bilirubin,Urine Negative (Negative); Blood,Urine Negative (Negative); Color,Urine Yellow; Glucose,Urine (UA) Negative (Negative); Ketones,Urine Negative (Negative); Leukocyte Esterase,Urine Negative (Negative); Nitrite,Urine Negative (Negative); PH, Urine 5.5 (5.0-8.0); Protein,Urine Negative (Negative); Specific Gravity,Urine 1.015 (1.001-1.035); Urobilinogen,Urine <2.0 mg/dL (<2.0)
--- NOTE | 2018-10-31 18:40 | US ---
EXAMINATION TYPE: US gallbladder DATE OF EXAM: 10/31/2018 COMPARISON: CT from 13 days ago. CLINICAL HISTORY: Pain. Epigastric pain x 1 day. EXAM MEASUREMENTS: Very limited study due to patient body habitus,435 lbs. Liver Length: 21.2 cm Gallbladder Wall: 0.3 CBD: difficult to visualize; what appears to be the CBD measures 0.53 cm Right Kidney: 11.4 x 5.9 x 4.0 cm Exam extremely suboptimal due to patient's large body habitus or underlying morbid obesity. Visualize d portions of pancreas are felt within normal limits. Significant portions are suboptimally evaluated . Visualized liver is heterogeneously hyperechoic consistent with known fatty infiltration on recent CT. Gallbladder is poorly seen on images saved. No definitive shadowing mobile gallstones or suspicio us gallbladder wall thickening. IMPRESSION: Suboptimal study without definitive shadowing mobile gallstones or ultrasound evidence fo r acute cholecystitis.
--- NOTE | 2018-10-31 21:52 | CT ---
EXAMINATION TYPE: CT angio chest DATE OF EXAM: 10/31/2018 COMPARISON: CT chest December 28, 2017. HISTORY: Pt c/o chest pain, MARCUS. Study limited by patient habitus. Hx CA, HTN. Isovue 370/[address] DLP: 4886.1 mGycm. Automated Exposure Control for Dose Reduction was Utilized. CONTRAST: CTA scan of the thorax is performed with IV Contrast, patient injected with 100 mL of Isovue 370, pul monary embolism protocol. MIP Images are created on CT scanner and reviewed. FINDINGS: Examination is suboptimal due to patient's large body habitus or underlying morbid obesity. LUNGS: Low lung volumes are redemonstrated. Some groundglass opacity is again seen. No pleural effusi on or pneumothorax. No suspicious focal consolidation. No suspicious masses. MEDIASTINUM: There is suboptimal bolus with marked heterogeneity and near equal contrast in right and left heart systems. There is no large saddle central pulmonary embolism, smaller lobar as well as se gmental and subsegmental PE cannot be entirely excluded on this exam. There are no greater than 1 cm hilar or mediastinal lymph nodes. No significant pericardial effusion is seen. Mild cardiomegaly re demonstrated. OTHER: Please refer to same day CT abdomen report for complete details on the upper abdomen. IMPRESSION: Suboptimal study without large saddle pulmonary embolism, smaller lobar as well as segmen yvonne and subsegmental PE cannot be excluded on this study. Mild cardiomegaly without suspicious focal infiltrate.
--- NOTE | 2018-10-31 21:55 | CT ---
EXAMINATION TYPE: CT abdomen pelvis w con DATE OF EXAM: 10/31/2018 HISTORY: Pt c/o chest pain, MARCUS. Study limited by patient habitus. Hx ME, HTN. Abdominal pain not fur ther specified. CT DLP: 4886.1mGycm Automated Exposure Control for Dose Reduction was Utilized. CONTRAST: CT scan of the abdomen and pelvis is performed without oral but with IV Contrast, patient injected wi th 100 mL of Isovue 370. COMPARISON: CT from 13 days ago. FINDINGS: Exam noted suboptimal due to patient's large body habitus, entire abdomen cannot be include d in [id number] LUNG BASES: Please refer to same day CTA chest study for complete details on lung bases. LIVER/GB: Liver is diffusely low dense consistent with fatty infiltration. PANCREAS: No significant abnormality is seen. SPLEEN: No significant abnormality is seen. ADRENALS: No significant abnormality is seen. KIDNEYS: Subcentimeter low dense lesion left kidney midpole level posteriorly delayed axial image 33 is felt to reflect simple small cyst. BOWEL: Scattered colonic diverticula most prominent in the left and sigmoid colon. No CT evidence for acute diverticulitis.. Some redundant sigmoid colon. No bowel obstruction. Normal-appearing appendix from cecum and the anterior right pelvis. UTERUS/ADNEXA: Anteverted uterus projects to left of midline. LYMPH NODES: No greater than 1cm abdominal or pelvic lymph nodes are appreciated. OSSEOUS STRUCTURES: Multilevel spurring in the thoracolumbar spine. Suboptimal evaluation due to habi tus with artifact. Facet arthropathy lower lumbar levels OTHER: No significant additional abnormality is seen. IMPRESSION: Suboptimal study due to body habitus. No significant new or acute finding is seen to acco unt for patient's clinical symptoms.
[2018-10-31 22:25] VITALS: BP 138/92; PULSE 103; RESP 18; TEMP 98.5
== END 2018-10-31 23:40 | disposition home or self-care (01) ==
LOC: EC 14:23
DX: R10.13 Epigastric pain (principal); R07.89 Other chest pain; R11.0 Nausea; R19.7 Diarrhea, unspecified; R79.89 Other specified abnormal findings of blood chemistry; I10 Essential (primary) hypertension; I25.2 Old myocardial infarction; M19.90 Unspecified osteoarthritis, unspecified site; M06.9 Rheumatoid arthritis, unspecified; G43.909 Migraine, unspecified, not intractable, without status migrainosus; D64.9 Anemia, unspecified; E03.9 Hypothyroidism, unspecified; F41.9 Anxiety disorder, unspecified; F32.9 Major depressive disorder, single episode, unspecified; E66.01 Morbid (severe) obesity due to excess calories; Z68.45 Body mass index [BMI] 70 or greater, adult; Z87.19 Personal history of other diseases of the digestive system; Z98.51 Tubal ligation status; Z79.1 Long term (current) use of non-steroidal anti-inflammatories (NSAID); Z79.84 Long term (current) use of oral hypoglycemic drugs; Z79.890 Hormone replacement therapy; Z79.82 Long term (current) use of aspirin; Z79.899 Other long term (current) drug therapy; Z88.5 Allergy status to narcotic agent; Z88.7 Allergy status to serum and vaccine; Z91.018 Allergy to other foods
CPT/HCPCS: 36415; 93005; 85379; 80053; 82150; 82550; 83690; 84484; 85025; 85610; 85730; 81003; 87502; 71046; 74018; 76705; 71275; 74177; 99285; 96374; 96375; 96361 ×7; 96372; J0500; J2765; Q9967

== ENCOUNTER 2019-01-10 17:50 | Emergency (ER) | payer MEDICARE, OTHER ==
[2019-01-10 18:03] VITALS: TEMP 99.3
[2019-01-10] MEDS ORDERED: MORPHINE SULFATE 4 MG/ML SYRINGE IV STA (18:07)
[2019-01-10] MEDS ORDERED: SODIUM CHLORIDE 0.9% 1,000 ML IV STA (18:07)
[2019-01-10] MEDS ORDERED: LABETALOL SYRINGE 5 MG/ML IVP STA (18:08)
--- NOTE | 2019-01-10 18:09 | ED ---
Recheck HPI - General Chief Complaint: Nausea/Vomiting/Diarrhea Stated Complaint: BP issues Time Seen by Provider: 01/10/19 17:56 Source: patient, EMS, RN notes reviewed, old records reviewed Mode of arrival: EMS Limitations: no limitations - History of Present Illness Initial Comments: This is a 48-year-old female the ER for evaluation. Patient is well-known to this ER, patient has elevated heart rate elevated blood pressure not feeling well. Patient's been taking all medications as prescribed but has been off pain medication for 2 days. No other complaints, no chest pain shortness or abdominal pain. No nausea vomiting or diarrhea no recent fever or illness. MD Complaint: other (Elevated heart rate and blood pressure) -: unknown Symptoms Since Prior Visit: no new symptoms Context: other (Sent in for evaluation regarding abnormal vital signs) Associated Symptoms: none - Related Data Home Medications Medication Instructions Recorded Confirmed Ferrous Sulfate [Iron (65 MG 325 mg PO BID 08/28/14 01/10/19 Elemental)] Prazosin [Minipress] 1 mg PO DAILY 04/24/17 01/10/19 Folic Acid 1 mg PO DAILY 12/01/17 01/10/19 Diazepam [Valium] 5 mg PO TID 04/05/18 01/10/19 hydrALAZINE HCL [Apresoline] 10 mg PO TID PRN 04/06/18 01/10/19 metFORMIN HCL ER [Glucophage Xr] 1,000 mg PO HS 04/06/18 01/10/19 Diclofenac Sodium [Voltaren] 75 mg PO BID 04/10/18 01/10/19 HYDROcodone/APAP 10-325MG [[place] 1 tab PO QID PRN 04/10/18 01/10/19 10-325] DULoxetine HCL [Cymbalta] 60 mg PO DAILY 06/04/18 01/10/19 Spironolactone 50 mg PO DAILY 06/04/18 01/10/19 ARIPiprazole [Abilify] 5 mg PO DAILY 10/17/18 01/10/19 Ergocalciferol (Vitamin D2) 50,000 unit PO SUTH 10/17/18 01/10/19 [Drisdol] Escitalopram [Lexapro] 10 mg PO DAILY 10/17/18 01/10/19 Levothyroxine Sodium 100 mcg PO DAILY 10/17/18 01/10/19 Loperamide [Imodium] 4 mg PO DIRECTED PRN 10/17/18 01/10/19 Lorcaserin HCl [Belviq Xr] 20 mg PO DAILY 10/17/18 01/10/19 Aspirin [[place] Aspirin EC] 324 mg PO DAILY 10/31/18 01/10/19 Metoprolol Succinate (ER) [Toprol 50 mg PO DAILY 10/31/18 01/10/19 XL] Nitroglycerin Sl Tabs [Nitrostat] 0.4 mg SL Q5M PRN 10/31/18 01/10/19 Previous Rx's Medication Instructions Recorded Gabapentin [Neurontin] 600 mg PO TID #90 cap 12/06/17 Allergies Allergy/AdvReac Type Severity Reaction Status Date / Time oxycodone HCl [From Percocet] Allergy Rash/Hives Verified 01/10/19 19:13 procaine HCl [From Novocain] Allergy facial Verified 01/10/19 19:13 swelling strawberry Allergy Rash/Hives Verified 01/10/19 19:13 Review of Systems ROS Statement: Those systems with pertinent positive or pertinent negative responses have been documented in the HPI. ROS Other: All systems not noted in ROS Statement are negative. Past Medical History Past Medical History: GERD/Reflux, GI Bleed, Hypertension, Myocardial Infarction ([place]), Osteoarthritis (OA), Pulmonary Embolus ([place]), Renal Disease, Rheumatoid Arthritis (RA), Syncope Additional Past Medical History / Comment(s): Obesity, numbness/tingling bilateral feet, chronic phil leg wound/cellulitis currently healed, previous rt leg ulcers now healed, lower leg edema, chronic low back pain with sciatica, tail bone fracture, bedbound, migraines, pt states she had toxemia with 1st and had a [place], bilateral tinnitis occasionally, bronchitis, sinus problems, gout bilateral feet, carpal tunnel syndrome bilateral wrists, hypothyoid, HTN but only with anxiety, colitis, IBS, chron's, diverticular dx, occasional low blood sugar, chronic anemia, lower GI bleed, UTIs,"sickle cell" trait, pt has fatty umbilical hernia and hydropic gallbladder-was to f/u at [facility] but has been unable to get there. Last Myocardial Infarction Date:: 1989 History of Any Multi-Drug Resistant Organisms: None Reported Past Surgical History: Section, Tubal Ligation Additional Past Surgical History / Comment(s): colonoscopy, 4 c-sections Past Anesthesia/Blood Transfusion Reactions: No Reported Reaction Additional Past Anesthesia/Blood Transfusion Reaction / Comment(s): Pt has received blood in the past and had itching, has had another transfusion since wi th no reaction. Past Psychological History: Anxiety, Depression Smoking Status: Never smoker - Past Family History Father History Unknown: Yes Additional Family Medical History / Comment(s): Pt was adopted and does not know parents/family medical hx. General Exam Limitations: no limitations General appearance: alert, in no apparent distress Head exam: Present: atraumatic, normocephalic, normal inspection Eye exam: Present: normal appearance, PERRL, EOMI. Absent: scleral icterus, conjunctival injection, periorbital swelling ENT exam: Present: normal exam, mucous membranes moist Neck exam: Present: normal inspection. Absent: tenderness, meningismus, lymphadenopathy Respiratory exam: Present: normal lung sounds bilaterally. Absent: respiratory distress, wheezes, rales, rhonchi, stridor Cardiovascular Exam: Present: normal rhythm, tachycardia, normal heart sounds. Absent: systolic murmur, diastolic murmur, rubs, gallop, clicks GI/Abdominal exam: Present: soft, normal bowel sounds. Absent: distended, tenderness, guarding, rebound, rigid Extremities exam: Present: normal inspection, full ROM, normal capillary refill. Absent: tenderness, pedal edema, joint swelling, calf tenderness Back exam: Present: normal inspection Neurological exam: Present: alert, oriented X3, CN II-XII intact Psychiatric exam: Present: normal affect, normal mood Skin exam: Present: warm, dry, intact, normal color. Absent: rash Course Vital Signs 01/10/19 01/10/19 01/10/19 17:59 18:29 19:08 Temperature 99.3 F Pulse Rate 102 H Respiratory 18 Rate Blood Pressure 178/115 201/128 195/125 O2 Sat by Pulse 96 99 Oximetry 01/10/19 01/10/19 20:30 22:00 Temperature Pulse Rate 87 89 Respiratory 16 20 Rate Blood Pressure 142/109 151/100 O2 Sat by Pulse 100 Oximetry Medical Decision Making - Medical Decision Making 48 female the ER for evaluation. Patient presented today for evaluation of weakness, elevated blood pressure elevated heart rate per caregivers. Pain medication for 2 days. Patient given pain control here CONTROL symptoms resolved, no significant abnormal lab findings the patient can be discharged home - Lab Data Result diagrams: 01/10/19 18:45 01/10/19 18:45 Lab Results 01/10/19 01/10/19 01/10/19 Range/Units 18:45 18:45 18:45 WBC 11.9 H (3.8-10.6) k/uL RBC 4.47 (3.80-5.40) m/uL Hgb 11.0 L (11.4-16.0) gm/dL Hct 35.3 (34.0-46.0) % MCV 79.0 L (80.0-100.0) fL MCH 24.6 L (25.0-35.0) pg MCHC 31.2 (31.0-37.0) g/dL RDW 17.0 H (11.5-15.5) % Plt Count 442 (150-450) k/uL Neutrophils % 68 % Lymphocytes % 23 % Monocytes % 4 % Eosinophils % 3 % Basophils % 0 % Neutrophils # 8.2 H (1.3-7.7) k/uL Lymphocytes # 2.7 (1.0-4.8) k/uL Monocytes # 0.5 (0-1.0) k/uL Eosinophils # 0.3 (0-0.7) k/uL Basophils # 0.1 (0-0.2) k/uL Hypochromasia Slight Anisocytosis Slight Microcytosis Slight Sodium 141 (137-145) mmol/L Potassium 4.0 (3.5-5.1) mmol/L Chloride 102 (98-107) mmol/L Carbon Dioxide 29 (22-30) mmol/L Anion Gap 10 mmol/L BUN 12 (7-17) mg/dL Creatinine 0.69 (0.52-1.04) mg/dL Est GFR (CKD-EPI)AfAm >90 (>60 ml/min/1.73 sqM) Est GFR (CKD-EPI)NonAf >90 (>60 ml/min/1.73 sqM) Glucose 108 H (74-99) mg/dL Calcium 9.4 (8.4-10.2) mg/dL Phosphorus 3.8 (2.5-4.5) mg/dL Magnesium 1.8 (1.6-2.3) mg/dL Total Bilirubin 0.4 (0.2-1.3) mg/dL AST 13 L (14-36) U/L ALT 8 L (9-52) U/L Alkaline Phosphatase 80 (38-126) U/L Troponin I <0.012 (0.000-0.034) ng/mL Total Protein 7.9 (6.3-8.2) g/dL Albumin 4.2 (3.5-5.0) g/dL TSH 1.860 (0.465-4.680) mIU/L - EKG Data -: EKG Interpreted by Me (EKG shows sinus rhythm rate of 97, SC 150, QRS 92, QTc 459) Disposition Clinical Impression: Dehydration, Generalized abdominal pain, Morbidly obese, Chronic pain, Hypertension Disposition: HOME SELF-CARE Condition: Good Instructions (If sedation given, give patient instructions): Chronic Pain (ED), Hypertension (ED) Is patient prescribed a controlled substance at d/c from ED?: No Referrals: Miki Stewart MD [Primary Care Provider] - 1-2 days
[2019-01-10 19:08] LABS: Anisocytosis Slight; Basophils # (A) 0.1 k/uL (0-0.2); Basophils % (A) 0 %; Eosinophils # (A) 0.3 k/uL (0-0.7); Eosinophils % (A) 3 %; HCT 35.3 % (34.0-46.0); Hypochromasia Slight; Lymphocytes # (A) 2.7 k/uL (1.0-4.8); Lymphocytes % (A) 23 %; MCH 24.6 pg (25.0-35.0); MCHC 31.2 g/dL (31.0-37.0); Mean Platelet Volume 6.6; Microcytosis Slight; Monocytes # (A) 0.5 k/uL (0-1.0); Monocytes % (A) 4 %; Neutrophils # (A) 8.2 k/uL (1.3-7.7); Neutrophils % (A) 68 %; Platelet Count 442 k/uL (150-450); RBC 4.47 m/uL (3.80-5.40); WBC 11.9 k/uL (3.8-10.6)
[2019-01-10] MEDS ORDERED: MORPHINE SULFATE 4 MG/ML SYRINGE IVP PRN (20:18)
[2019-01-10 20:22] LABS: ALT 8 U/L (9-52); AST 13 U/L (14-36); African American GFR (CKD) >90 (>60 ml/min/1.73 sqM); Albumin 4.2 g/dL (3.5-5.0); Alkaline Phosphatase 80 U/L (38-126); Anion Gap 10 mmol/L; Blood Urea Nitrogen 12 mg/dL (7-17); Calcium 9.4 mg/dL (8.4-10.2); Carbon Dioxide 29 mmol/L (22-30); Chloride 102 mmol/L (98-107); Glucose 108 mg/dL (74-99); Magnesium 1.8 mg/dL (1.6-2.3); Phosphorus 3.8 mg/dL (2.5-4.5); Sodium 141 mmol/L (137-145); Total Bilirubin 0.4 mg/dL (0.2-1.3); Total Protein 7.9 g/dL (6.3-8.2)
[2019-01-11 00:46] VITALS: BP 151/100; PULSE 89; RESP 20
== END 2019-01-10 22:20 | disposition home or self-care (01) ==
LOC: EEVIPCON 17:50 → EC 17:50
DX: I10 Essential (primary) hypertension (principal); E86.0 Dehydration; R10.84 Generalized abdominal pain; G89.29 Other chronic pain; E66.01 Morbid (severe) obesity due to excess calories; Z68.45 Body mass index [BMI] 70 or greater, adult; I25.2 Old myocardial infarction; M06.9 Rheumatoid arthritis, unspecified; E03.9 Hypothyroidism, unspecified; F32.9 Major depressive disorder, single episode, unspecified; F41.9 Anxiety disorder, unspecified; Z79.84 Long term (current) use of oral hypoglycemic drugs; Z79.890 Hormone replacement therapy; Z79.82 Long term (current) use of aspirin; Z79.899 Other long term (current) drug therapy; Z88.4 Allergy status to anesthetic agent; Z91.018 Allergy to other foods; Z88.8 Allergy status to other drugs, medicaments and biological substances
CPT/HCPCS: 36415; 93005; 80053; 83735; 84100; 84443; 84484; 85025; 99284; 96374; 96375; 96376; 96361 ×3; J2270

== ENCOUNTER 2019-03-08 12:52 | Emergency (ER) | payer MEDICARE, OTHER ==
[2019-03-08] MEDS ORDERED: SODIUM CHLORIDE 0.9% 1,000 ML IV STA (15:02)
[2019-03-08] MEDS ORDERED: KETOROLAC 30 MG/ML 1 ML VIAL IVP STA (15:02)
[2019-03-08] MEDS ORDERED: HYDROmorphone 1 MG/ML 1 ML SYRINGE IVP STA (15:02)
--- NOTE | 2019-03-08 15:10 | ED ---
Recheck HPI - General Chief Complaint: Recheck/Abnormal Lab/Rx Stated Complaint: Pain all over Time Seen by Provider: 03/08/19 13:02 Source: patient, RN notes reviewed, old records reviewed Mode of arrival: EMS Limitations: no limitations - History of Present Illness Initial Comments: This is a 48-year-old female the ER for evaluation. Patient's well-known to our facility for evaluation regarding pain. Patient coming of chronic pain pain all over and inability to ambulate. Has significant diffuse body pain and weakness. States she is on amateur secondary to chronic knee is issues and arthritis. Patient has no modifying factors at home for pain, patient presents by EMS. Patient denies any nausea vomiting or diarrhea. No recent change in medications no recent hospitalizations. MD Complaint: other (Increasing chronic pain) -: days(s) Returns Today for: request for prescription (Patient stating increasing pain), persistent/worsening pain related to initial visit Symptoms Since Prior Visit: worsening pain Context: ran out of medication Associated Symptoms: none - Related Data Home Medications Medication Instructions Recorded Confirmed Ferrous Sulfate [Iron (65 MG 325 mg PO BID 08/28/14 03/08/19 Elemental)] Prazosin [Minipress] 1 mg PO DAILY 04/24/17 03/08/19 Folic Acid 1 mg PO DAILY 12/01/17 03/08/19 Diazepam [Valium] 5 mg PO TID PRN 04/05/18 03/08/19 hydrALAZINE HCL [Apresoline] 10 mg PO TID PRN 04/06/18 03/08/19 metFORMIN HCL ER [Glucophage Xr] 1,000 mg PO BID 04/06/18 03/08/19 Diclofenac Sodium [Voltaren] 75 mg PO BID 04/10/18 03/08/19 HYDROcodone/APAP 10-325MG [[place] 1 tab PO QID PRN 04/10/18 03/08/19 10-325] DULoxetine HCL [Cymbalta] 60 mg PO DAILY 06/04/18 03/08/19 ARIPiprazole [Abilify] 5 mg PO DAILY 10/17/18 03/08/19 Ergocalciferol (Vitamin D2) 50,000 unit PO SUTH 10/17/18 03/08/19 [Drisdol] Escitalopram [Lexapro] 10 mg PO DAILY 10/17/18 03/08/19 Levothyroxine Sodium 100 mcg PO DAILY 10/17/18 03/08/19 Loperamide [Imodium] 4 mg PO BID PRN MDD 4 TABS 10/17/18 03/08/19 Metoprolol Succinate (ER) [Toprol 50 mg PO DAILY 10/31/18 03/08/19 XL] Nitroglycerin Sl Tabs [Nitrostat] 0.4 mg SL Q5M PRN 10/31/18 03/08/19 Diclofenac Sodium [Voltaren Gel] 2 - 4 gram TOPICAL QID PRN 03/08/19 03/08/19 Omeprazole [PriLOSEC] 40 mg PO DAILY PRN 03/08/19 03/08/19 Previous Rx's Medication Instructions Recorded Gabapentin [Neurontin] 600 mg PO TID #90 cap 12/06/17 Allergies Allergy/AdvReac Type Severity Reaction Status Date / Time oxycodone HCl [From Percocet] Allergy Rash/Hives Verified 03/08/19 13:30 procaine HCl [From Novocain] Allergy facial Verified 03/08/19 13:30 swelling strawberry Allergy Rash/Hives Verified 03/08/19 13:30 Review of Systems ROS Statement: Those systems with pertinent positive or pertinent negative responses have been documented in the HPI. ROS Other: All systems not noted in ROS Statement are negative. Past Medical History Past Medical History: GERD/Reflux, GI Bleed, Hypertension, Myocardial Infarction ([place]), Osteoarthritis (OA), Pulmonary Embolus (PE), Renal Disease, Rheumatoid Arthritis (RA), Syncope Additional Past Medical History / Comment(s): Obesity, numbness/tingling bilateral feet, chronic phil leg wound/cellulitis currently healed, previous rt leg ulcers now healed, lower leg edema, chronic low back pain with sciatica, tail bone fracture, bedbound, migraines, pt states she had toxemia with 1st and had a [place], bilateral tinnitis occasionally, bronchitis, sinus problems, gout bilateral feet, carpal tunnel syndrome bilateral wrists, hypothyoid, HTN but only with anxiety, colitis, IBS, chron's, diverticular dx, occasional low blood sugar, chronic anemia, lower GI bleed, UTIs,"sickle cell" trait, pt has fatty umbilical hernia and hydropic gallbladder-was to f/u at [facility] but has been unable to get there. Last Myocardial Infarction Date:: 1989 History of Any Multi-Drug Resistant Organisms: None Reported Past Surgical History: Section, Tubal Ligation Additional Past Surgical History / Comment(s): colonoscopy, 4 c-sections Past Anesthesia/Blood Transfusion Reactions: No Reported Reaction Additional Past Anesthesia/Blood Transfusion Reaction / Comment(s): Pt has received blood in the past and had itching, has had another transfusion since with no reaction. Past Psychological History: Anxiety, Depression Smoking Status: Never smoker Past Alcohol Use History: None Reported Past Drug Use History: None Reported - Past Family History Father History Unknown: Yes Additional Family Medical History / Comment(s): Pt was adopted and does not know parents/family medical hx. General Exam Limitations: no limitations General appearance: alert, in no apparent distress, obese Head exam: Present: atraumatic, normocephalic, normal inspection Eye exam: Present: normal appearance, PERRL, EOMI. Absent: scleral icterus, conjunctival injection, periorbital swelling ENT exam: Present: normal exam, mucous membranes moist Neck exam: Present: normal inspection. Absent: tenderness, meningismus, lymphadenopathy Respiratory exam: Present: normal lung sounds bilaterally. Absent: respiratory distress, wheezes, rales, rhonchi, stridor Cardiovascular Exam: Present: normal rhythm, tachycardia, normal heart sounds. Absent: systolic murmur, diastolic murmur, rubs, gallop, clicks GI/Abdominal exam: Present: soft, normal bowel sounds. Absent: distended, tenderness, guarding, rebound, rigid Extremities exam: Present: normal inspection, full ROM, normal capillary refill. Absent: tenderness, pedal edema, joint swelling, calf tenderness Back exam: Present: normal inspection Neurological exam: Present: alert, oriented X3, CN II-XII intact Psychiatric exam: Present: normal affect, normal mood Skin exam: Present: warm, dry, intact, normal color. 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 Pain is controlled and patient will be discharged Disposition Clinical Impression: Morbidly obese, Generalized abdominal pain, Chronic pain Disposition: HOME SELF-CARE Condition: Good Instructions (If sedation given, give patient instructions): Chronic Pain (ED), Pain Management (ED) Is patient prescribed a controlled substance at d/c from ED?: No Referrals: Miki Stewart MD [Primary Care Provider] - 1-2 days
[2019-03-08] MEDS ORDERED: HYDROmorphone 1 MG/ML 1 ML SYRINGE IM STA (15:49)
[2019-03-08] MEDS ORDERED: IBUPROFEN 800 MG TAB PO STA (15:49)
[2019-03-08] MEDS ORDERED: DIAZEPAM 5 MG TAB PO STA (15:49)
[2019-03-08 17:41] LABS: ALT 12 U/L (9-52); AST 13 U/L (14-36); African American GFR (CKD) >90 (>60 ml/min/1.73 sqM); Alkaline Phosphatase 85 U/L (38-126); Amylase 56 U/L (30-110); Anion Gap 7 mmol/L; Blood Urea Nitrogen 13 mg/dL (7-17); Carbon Dioxide 33 mmol/L (22-30); Chloride 102 mmol/L (98-107); Glucose 110 mg/dL (74-99); Magnesium 1.9 mg/dL (1.6-2.3); Potassium 3.8 mmol/L (3.5-5.1); Sodium 142 mmol/L (137-145); Total Bilirubin 0.3 mg/dL (0.2-1.3); Total Protein 7.9 g/dL (6.3-8.2)
[2019-03-08 17:56] LABS: Anisocytosis Slight; Basophils # (A) 0.1 k/uL (0-0.2); Basophils % (A) 1 %; Eosinophils # (A) 0.2 k/uL (0-0.7); Eosinophils % (A) 2 %; HCT 33.9 % (34.0-46.0); HGB 10.4 gm/dL (11.4-16.0); Hypochromasia Slight; Lymphocytes # (A) 2.7 k/uL (1.0-4.8); Lymphocytes % (A) 25 %; MCH 24.3 pg (25.0-35.0); MCHC 30.6 g/dL (31.0-37.0); MCV 79.3 fL (80.0-100.0); Mean Platelet Volume 6.6; Microcytosis Slight; Monocytes # (A) 0.4 k/uL (0-1.0); Monocytes % (A) 4 %; Neutrophils # (A) 7.1 k/uL (1.3-7.7); Neutrophils % (A) 67 %; Platelet Count 394 k/uL (150-450); RBC 4.28 m/uL (3.80-5.40); RDW 16.6 % (11.5-15.5); WBC 10.6 k/uL (3.8-10.6)
[2019-03-08 19:46] VITALS: BP 156/101; PULSE 101; RESP 22; TEMP 98.2
== END 2019-03-08 19:47 | disposition home or self-care (01) ==
LOC: EC 12:52
DX: R10.84 Generalized abdominal pain (principal); G89.29 Other chronic pain; E66.01 Morbid (severe) obesity due to excess calories; R00.0 Tachycardia, unspecified; I10 Essential (primary) hypertension; I25.2 Old myocardial infarction; M19.90 Unspecified osteoarthritis, unspecified site; M06.9 Rheumatoid arthritis, unspecified; M10.9 Gout, unspecified; E03.9 Hypothyroidism, unspecified; D64.9 Anemia, unspecified; F32.9 Major depressive disorder, single episode, unspecified; F41.9 Anxiety disorder, unspecified; Z88.4 Allergy status to anesthetic agent; Z88.5 Allergy status to narcotic agent; Z91.018 Allergy to other foods; Z79.1 Long term (current) use of non-steroidal anti-inflammatories (NSAID); Z79.84 Long term (current) use of oral hypoglycemic drugs; Z79.890 Hormone replacement therapy; Z79.899 Other long term (current) drug therapy; Z68.45 Body mass index [BMI] 70 or greater, adult; Z53.20 Procedure and treatment not carried out because of patient's decision for unspecified reasons; Z53.8 Procedure and treatment not carried out for other reasons
CPT/HCPCS: 36415; 93005; 80053; 82150; 83690; 83735; 85025; 99284; 96372; J1170

== ENCOUNTER 2019-04-02 14:24 | Emergency (ER) | payer MEDICARE, OTHER ==
[2019-04-02] MEDS ORDERED: SODIUM CHLORIDE 0.9% 1,000 ML IV STA (15:59)
[2019-04-02] MEDS ORDERED: KETOROLAC 30 MG/ML 1 ML VIAL IVP STA (15:59)
[2019-04-02] MEDS ORDERED: HYDROmorphone 1 MG/ML 1 ML SYRINGE IVP STA ×2 (15:59→19:30)
[2019-04-02 16:57] VITALS: RESP 20
[2019-04-02 17:04] LABS: Basophils % (A) 0 %; Eosinophils # (A) 0.2 k/uL (0-0.7); Eosinophils % (A) 2 %; HCT 34.4 % (34.0-46.0); HGB 10.6 gm/dL (11.4-16.0); Lymphocytes # (A) 2.4 k/uL (1.0-4.8); Lymphocytes % (A) 23 %; MCH 24.3 pg (25.0-35.0); MCHC 30.7 g/dL (31.0-37.0); MCV 79.1 fL (80.0-100.0); Monocytes # (A) 0.4 k/uL (0-1.0); Monocytes % (A) 4 %; Neutrophils # (A) 7.1 k/uL (1.3-7.7); Neutrophils % (A) 69 %; Platelet Count 364 k/uL (150-450); RBC 4.34 m/uL (3.80-5.40); RDW 15.8 % (11.5-15.5); WBC 10.3 k/uL (3.8-10.6)
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
[2019-04-02 17:15] LABS: ALT 10 U/L (9-52); AST 14 U/L (14-36); African American GFR (CKD) >90 (>60 ml/min/1.73 sqM); Albumin 4.1 g/dL (3.5-5.0); Amylase 50 U/L (30-110); Blood Urea Nitrogen 13 mg/dL (7-17); Carbon Dioxide 32 mmol/L (22-30); Glucose 103 mg/dL (74-99); Potassium 4.2 mmol/L (3.5-5.1); Total Bilirubin 0.5 mg/dL (0.2-1.3); Total Protein 7.8 g/dL (6.3-8.2)
[2019-04-02 17:17] LABS: Alkaline Phosphatase 86 U/L (38-126); Chloride 101 mmol/L (98-107)
[2019-04-02 17:40] LABS: Anion Gap 6 mmol/L; Calcium 9.5 mg/dL (8.4-10.2); Sodium 139 mmol/L (137-145)
[2019-04-02 20:04] VITALS: BP 166/112; PULSE 96; TEMP 98.2
== END 2019-04-02 21:31 | disposition home or self-care (01) ==
LOC: EC 14:24
DX: G89.29 Other chronic pain (principal); E66.01 Morbid (severe) obesity due to excess calories; R53.1 Weakness; I10 Essential (primary) hypertension; I25.2 Old myocardial infarction; M19.90 Unspecified osteoarthritis, unspecified site; M06.9 Rheumatoid arthritis, unspecified; E03.9 Hypothyroidism, unspecified; D64.9 Anemia, unspecified; F32.9 Major depressive disorder, single episode, unspecified; F41.9 Anxiety disorder, unspecified; Z88.4 Allergy status to anesthetic agent; Z88.5 Allergy status to narcotic agent; Z91.018 Allergy to other foods; Z79.1 Long term (current) use of non-steroidal anti-inflammatories (NSAID); Z79.84 Long term (current) use of oral hypoglycemic drugs; Z79.890 Hormone replacement therapy; Z79.899 Other long term (current) drug therapy; Z74.01 Bed confinement status; Z86.39 Personal history of other endocrine, nutritional and metabolic disease; Z68.45 Body mass index [BMI] 70 or greater, adult
CPT/HCPCS: 36415; 80053; 82150; 83690; 85025; 99285; 96374; 96375; 96376; 96361 ×3; J1885; J1170

== ENCOUNTER 2019-04-08 09:47 | Emergency (ER) | payer MEDICARE, OTHER ==
[2019-04-08 10:07] VITALS: RESP 16
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
[2019-04-08 11:05] LABS: Amphetamine Screen,Urine Not Detected (NotDetected); Barbiturate Screen,Urine Not Detected (NotDetected); Benzodiazepines Screen,Urine Detected (NotDetected); Cocaine Screen,Urine Not Detected (NotDetected); Methadone Screen, Urine Not Detected (NotDetected); Opiate Screen,Urine Detected (NotDetected); Oxycodone Screen, Urine Not Detected (NotDetected); Phencyclidine Screen,Urine Not Detected (NotDetected); Tricyclic Antidepressant,Urine Not Detected (NotDetected); Urn Cannabinoid Scrn Not Detected (NotDetected)
[2019-04-08] MEDS ORDERED: HYDROcodone/APAP 10-325MG 1 EACH TAB PO ONE (14:28)
[2019-04-08] MEDS ORDERED: DIAZEPAM 5 MG TAB PO STA (14:29)
[2019-04-08] MEDS: GABAPENTIN 400 MG CAP PO STA ×2 (14:51→14:53)
[2019-04-08 16:31] VITALS: BP 149/78; PULSE 80; TEMP 97.9
== END 2019-04-08 16:31 | disposition home or self-care (01) ==
LOC: EC 09:47
DX: F43.21 Adjustment disorder with depressed mood (principal); I25.2 Old myocardial infarction; K21.9 Gastro-esophageal reflux disease without esophagitis; E03.9 Hypothyroidism, unspecified; I10 Essential (primary) hypertension; E66.9 Obesity, unspecified; Z68.44 Body mass index [BMI] 60.0-69.9, adult; Z79.890 Hormone replacement therapy; Z79.84 Long term (current) use of oral hypoglycemic drugs; Z79.899 Other long term (current) drug therapy; Z88.5 Allergy status to narcotic agent; Z91.018 Allergy to other foods; Z88.4 Allergy status to anesthetic agent; Z86.711 Personal history of pulmonary embolism; Z74.01 Bed confinement status
CPT/HCPCS: 80306; 82075; 99284